=== PATIENT | male | born 1940 | race Caucasian/White ===

== ENCOUNTER 2017-05-16 11:38 | Observation (INO) | payer MEDICARE, BC ==
[2017-05-16] MEDS ORDERED: methylPREDNISolone SOD SUCCI 125 MG/2 ML VIAL IV STA (12:15)
[2017-05-16] MEDS ORDERED: IPRATROPIUM-ALBUTEROL 3 ML NEB INHALATION STA (12:15)
[2017-05-16] MEDS ORDERED: SODIUM CHLORIDE 0.9% 1,000 ML IV STA (12:15)
--- NOTE | 2017-05-16 12:17 | ED ---
General Adult HPI - General Chief complaint: Shortness of Breath Stated complaint: diff breathing Time Seen by Provider: 05/16/17 12:06 Source: patient, family, RN notes reviewed Mode of arrival: wheelchair Limitations: no limitations - History of Present Illness Initial comments: Patient is a pleasant 77-year-old male presenting to the emergency department with difficulty in breathing. Patient has similar symptoms related to chronic COPD. Patient states symptoms have worsened the past few days. Patient did just finish steroid treatments a few days ago. No fevers. Patient does have cough that is nonproductive. No chest pain. - Related Data Home Medications Medication Instructions Recorded Confirmed Aspirin [Adult Low Dose Aspirin EC] 81 mg PO DAILY 02/13/16 05/16/17 Atenolol [Tenormin] 25 mg PO DAILY 02/13/16 05/16/17 Atorvastatin [Lipitor] 40 mg PO HS 02/13/16 05/16/17 Ezetimibe [Zetia] 10 mg PO DAILY 02/13/16 05/16/17 FLUoxetine HCL [PROzac] 60 mg PO DAILY 02/13/16 05/16/17 Nitroglycerin Sl Tabs [Nitrostat] 0.4 mg SUBLINGUAL Q5M PRN 06/22/16 05/16/17 clonazePAM [KlonoPIN] 0.5 mg PO DAILY PRN 06/22/16 05/16/17 Amoxicillin 500 mg PO TID 05/16/17 05/16/17 Omeprazole [PriLOSEC] 20 mg PO AC-BID 05/16/17 05/16/17 Ticagrelor [Brilinta] 60 mg PO BID 05/16/17 05/16/17 Previous Rx's Medication Instructions Recorded Budesonide-Formot 160-4.5 Mcg 1 puff INHALATION RT-BID #1 inh 06/25/16 [Symbicort 160-4.5 Mcg Inhaler] Furosemide [Lasix] 20 mg PO DAILY #30 tab 06/25/16 Ipratropium-Albuterol Nebulize 3 ml INHALATION RT-QID ampul.neb 06/25/16 [Duoneb 0.5 mg-3 mg/3 ml Soln] predniSONE 10 mg PO DAILY #40 tab 08/15/16 Allergies Allergy/AdvReac Type Severity Reaction Status Date / Time No Known Allergies Allergy Verified 05/16/17 13:18 Review of Systems ROS Statement: Those systems with pertinent positive or pertinent negative responses have been documented in the HPI. ROS Other: All systems not noted in ROS Statement are negative. Constitutional: Denies: fever Eyes: Denies: eye pain ENT: Denies: ear pain Respiratory: Reports: cough, dyspnea Cardiovascular: Denies: chest pain Endocrine: Denies: fatigue Gastrointestinal: Denies: abdominal pain Genitourinary: Denies: dysuria Musculoskeletal: Denies: back pain Skin: Denies: rash Neurological: Denies: weakness Past Medical History Past Medical History: COPD, Hyperlipidemia, Hypertension Additional Past Medical History / Comment(s): COPD, obesity, coronary artery disease with previous bypass surgery, cataracts, hiatal hernia, obstructive sleep apnea for which the patient needs to be reevaluated for CPAP therapy. His latest sleep evaluation was done many years back. 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 Mother Family Medical History: CVA/TIA Additional Family Medical History / Comment(s): at age 99 3/4 from [place] General Exam Limitations: no limitations General appearance: alert, in no apparent distress Head exam: Present: atraumatic Eye exam: Present: normal appearance, PERRL ENT exam: Present: normal oropharynx Neck exam: Present: normal inspection Respiratory exam: Present: wheezes, decreased breath sounds Cardiovascular Exam: Present: regular rate, normal rhythm GI/Abdominal exam: Present: soft. Absent: tenderness Extremities exam: Present: normal inspection. Absent: pedal edema, calf tenderness Back exam: Present: normal inspection Neurological exam: Present: alert Psychiatric exam: Present: normal affect, normal mood Skin exam: Present: normal color Course Vital Signs 05/16/17 05/16/17 05/16/17 11:42 12:16 12:29 Temperature 98.2 F Pulse Rate 76 78 78 Respiratory 20 Rate Blood Pressure 131/65 O2 Sat by Pulse 97 Oximetry 05/16/17 13:23 Temperature Pulse Rate 66 Respiratory 18 Rate Blood Pressure 120/60 O2 Sat by Pulse 96 Oximetry EKG Findings - EKG Comments: EKG Findings:: Normal sinus rhythm 69. [place] 162. QRS 142. QT 442. QTC 473. Left axis. Right bundle branch block. No acute ST change. Medical Decision Making - Medical Decision Making Patient reexamined and only somewhat improved following an alleged treatment. Patient and family were updated on results and plan. Case was discussed in detail with practitioner Moose, who will admit for Dr. Alaniz, covering for Dr. Palacios. - Lab Data Result diagrams: 05/16/17 12:10 05/16/17 12:10 Lab Results 05/16/17 05/16/17 Range/Units 12:10 12:10 WBC 7.6 (3.8-10.6) k/uL RBC 4.26 L (4.30-5.90) m/uL Hgb 13.2 (13.0-17.5) gm/dL Hct 37.6 L (39.0-53.0) % MCV 88.2 (80.0-100.0) fL MCH 31.1 (25.0-35.0) pg MCHC 35.2 (31.0-37.0) g/dL RDW 13.6 (11.5-15.5) % Plt Count 175 (150-450) k/uL Neutrophils % 72 % Lymphocytes % 14 % Monocytes % 7 % Eosinophils % 4 % Basophils % 1 % Neutrophils # 5.5 (1.3-7.7) k/uL Lymphocytes # 1.1 (1.0-4.8) k/uL Monocytes # 0.5 (0-1.0) k/uL Eosinophils # 0.3 (0-0.7) k/uL Basophils # 0.0 (0-0.2) k/uL Sodium 134 L (137-145) mmol/L Potassium 4.8 (3.5-5.1) mmol/L Chloride 101 (98-107) mmol/L Carbon Dioxide 22 (22-30) mmol/L Anion Gap 11 mmol/L BUN 14 (9-20) mg/dL Creatinine 1.00 (0.66-1.25) mg/dL Est GFR (MDRD) Af Amer >60 (>60 ml/min/1.73 sqM) Est GFR (MDRD) Non-Af >60 (>60 ml/min/1.73 sqM) Glucose 136 H (74-99) mg/dL Calcium 9.1 (8.4-10.2) mg/dL Total Bilirubin 0.7 (0.2-1.3) mg/dL AST 25 (17-59) U/L ALT 36 (21-72) U/L Alkaline Phosphatase 87 (38-126) U/L Total Protein 6.3 (6.3-8.2) g/dL Albumin 3.7 (3.5-5.0) g/dL - Radiology Data Radiology results: image reviewed (Chest x-ray shows atelectasis, bronchitis versus reactive small airway disease.) Disposition Clinical Impression: Acute exacerbation of chronic obstructive pulmonary disease (COPD) Disposition: ADMITTED IP TO THIS HOSP Referrals: Doretha Rose MD [Primary Care Provider] - 1-2 days Decision Time: 14:46
[2017-05-16 12:33] LABS: Basophils % (A) 1 %; CH 30.4; CHCM 34.6; Eosinophils # (A) 0.3 k/uL (0-0.7); Eosinophils % (A) 4 %; HCT 37.6 % (39.0-53.0); HDW 2.89; HGB 13.2 gm/dL (13.0-17.5); Luc # (Auto) 0.14; Luc % (Auto) 2; Lymphocytes # (A) 1.1 k/uL (1.0-4.8); Lymphocytes % (A) 14 %; MCH 31.1 pg (25.0-35.0); MCHC 35.2 g/dL (31.0-37.0); MCV 88.2 fL (80.0-100.0); Mean Platelet Volume 9.2; Monocytes # (A) 0.5 k/uL (0-1.0); Monocytes % (A) 7 %; Neutrophils # (A) 5.5 k/uL (1.3-7.7); Neutrophils % (A) 72 %; RBC 4.26 m/uL (4.30-5.90); RDW 13.6 % (11.5-15.5); WBC 7.6 k/uL (3.8-10.6); WBC (Perox) 8.11
[2017-05-16 12:53] LABS: ALT 36 U/L (21-72); AST 25 U/L (17-59); Alkaline Phosphatase 87 U/L (38-126); Anion Gap 11 mmol/L; Blood Urea Nitrogen 14 mg/dL (9-20); Calcium 9.1 mg/dL (8.4-10.2); Carbon Dioxide 22 mmol/L (22-30); Chloride 101 mmol/L (98-107); Glucose 136 mg/dL (74-99); Non-African American GFR(MDRD) >60 (>60 ml/min/1.73 sqM); Potassium 4.8 mmol/L (3.5-5.1); Sodium 134 mmol/L (137-145); Total Bilirubin 0.7 mg/dL (0.2-1.3); Total Protein 6.3 g/dL (6.3-8.2)
--- NOTE | 2017-05-16 12:53 | XR ---
EXAMINATION TYPE: XR chest 2V DATE OF EXAM: 05/16/2017 COMPARISON: NONE HISTORY: Difficulty breathing with history of COPD TECHNIQUE: Frontal and lateral views of the chest are obtained. FINDINGS: There is no focal air space opacity, pleural effusion, or pneumothorax seen. Peripheral r ight lower lung atelectasis is present. Lower lobe peribronchial cuffing is seen, new from the prior exam. Median sternotomy wires and mediastinal clips are noted. The cardiac silhouette size is within normal limits. The osseous structures are intact. Mild degenerative changes of the thoracic spine a re seen. IMPRESSION: 1. Lower lobe peribronchial cuffing that could relate to bronchitis and/or reactive small airway dise ase. 2. Subsegmental right basilar peripheral platelike atelectasis.
[2017-05-16 13:24] VITALS: RESP 18
[2017-05-16] MEDS ORDERED: IPRATROPIUM-ALBUTEROL 3 ML NEB INHALATION PRN (14:46)
[2017-05-16] MEDS ORDERED: clonazePAM 0.5 MG TAB PO PRN (17:08)
[2017-05-16] MEDS ORDERED: NITROGLYCERIN SL TABS 0.4 MG TAB SUBLINGUAL PRN (17:08)
[2017-05-16] MEDS: INSULIN LISPRO (humaLOG) 300 UNIT/3 ML VIAL SQ SCH ×2 (17:42→22:37)
[2017-05-16] MEDS: methylPREDNISolone SOD SUCCI 125 MG/2 ML VIAL IV SCH ×2 (17:45→23:58)
[2017-05-16] MEDS ORDERED: LEVOFLOXACIN 500MG-D5W PMX 500 MG in DEXTROSE/WATER 1 100ML.BAG IVPB SCH (18:00)
[2017-05-16] MEDS: SYMBICORT 160-4.5 MCG INHALER INHALATION SCH (19:37)
[2017-05-16] MEDS: IPRATROPIUM-ALBUTEROL 3 ML NEB INHALATION SCH (19:38)
[2017-05-16 20:33] LABS: Glucose,Whole Blood 205 mg/dL (75-99)
[2017-05-16] MEDS ORDERED: ATORVASTATIN 40 MG TAB PO SCH (21:00)
[2017-05-16] MEDS ORDERED: NON-FORMULARY DRUG (Ticagrelor [Brilinta] 60 MG) PO SCH (21:00)
[2017-05-17] MEDS: methylPREDNISolone SOD SUCCI 125 MG/2 ML VIAL IV SCH ×2 (05:29→12:32)
[2017-05-17 05:46] LABS: Basophils % (A) 0 %; CH 31.4; Eosinophils # (A) 0.1 k/uL (0-0.7); Eosinophils % (A) 1 %; HCT 39.9 % (39.0-53.0); HDW 2.87; HGB 13.5 gm/dL (13.0-17.5); Luc # (Auto) 0.04; Luc % (Auto) 0; Lymphocytes # (A) 0.7 k/uL (1.0-4.8); Lymphocytes % (A) 6 %; MCH 30.4 pg (25.0-35.0); MCHC 33.8 g/dL (31.0-37.0); Mean Platelet Volume 9.3; Monocytes # (A) 0.1 k/uL (0-1.0); Monocytes % (A) 1 %; Neutrophils # (A) 10.7 k/uL (1.3-7.7); Neutrophils % (A) 92 %; RBC 4.43 m/uL (4.30-5.90); RDW 14.2 % (11.5-15.5); WBC 11.7 k/uL (3.8-10.6); WBC (Perox) 11.97
[2017-05-17 05:57] LABS: Anion Gap 12 mmol/L; Blood Urea Nitrogen 15 mg/dL (9-20); Calcium 9.6 mg/dL (8.4-10.2); Carbon Dioxide 21 mmol/L (22-30); Chloride 100 mmol/L (98-107); Glucose 157 mg/dL (74-99); Non-African American GFR(MDRD) >60 (>60 ml/min/1.73 sqM); Sodium 133 mmol/L (137-145)
[2017-05-17 06:43] LABS: Glucose,Whole Blood 141 mg/dL (75-99)
[2017-05-17 07:27] VITALS: BP 137/65; TEMP 97.8
[2017-05-17] MEDS ORDERED: PANTOPRAZOLE 40 MG TABLET PO SCH (07:30)
[2017-05-17] MEDS: IPRATROPIUM-ALBUTEROL 3 ML NEB INHALATION SCH ×3 (07:41→11:08)
[2017-05-17] MEDS: SYMBICORT 160-4.5 MCG INHALER INHALATION SCH (07:42)
[2017-05-17] MEDS: INSULIN LISPRO (humaLOG) 300 UNIT/3 ML VIAL SQ SCH ×2 (08:10→12:31)
[2017-05-17] MEDS ORDERED: FLUoxetine HCL 20 MG CAP PO SCH (09:00)
[2017-05-17] MEDS ORDERED: FUROSEMIDE 20 MG TAB PO SCH (09:00)
[2017-05-17] MEDS ORDERED: EZETIMIBE 10 MG TAB PO SCH (09:00)
[2017-05-17] MEDS ORDERED: ASPIRIN 81 MG PO SCH (09:00)
[2017-05-17] MEDS ORDERED: ATENOLOL 25 MG TAB PO SCH (09:00)
[2017-05-17 12:07] LABS: Glucose,Whole Blood 181 mg/dL (75-99)
[2017-05-17 12:21] VITALS: PULSE 70
[2017-05-17] MEDS ORDERED: LEVOFLOXACIN 500 MG TAB PO SCH (18:00)
--- NOTE | 2017-05-18 08:50 | HP ---
HISTORY AND PHYSICAL HISTORY AND PHYSICAL AND DISCHARGE SUMMARY: DATE OF ADMISSION: 05/16/17 CHIEF COMPLAINT: Difficulty breathing. HISTORY OF PRESENTING ILLNESS: This is a 77-year-old gentleman who sees Dr. Monroe out of [employer] for his lung disease. Comes into the hospital with difficulty in breathing and progressive worsening of his symptoms for the last few days. Patient apparently was prescribed a steroid taper and has just finished a steroid taper over 2 days ago. Patient was seen in the emergency room. A chest x-ray did not reveal any pneumonic processes. However, the patient was having significant amount of wheezing, hence was admitted to the hospital with steroid therapy and scheduled breathing treatments. The patient currently uses [facility] and breathing treatments 4 hours. The patient is not very active at home even at baseline. Denies any headache, blurred vision, nausea, vomiting, diarrhea. No chest pain. His main complaints are difficulty breathing. HOME MEDICATIONS: Include: 1. Aspirin. 2. Tenormin. 3. Lipitor. 4. Zetia. 5. Prozac. 6. Nitrostat. 7. Klonopin. 8. Brilinta. 9. Prilosec. 10.Symbicort. 11.Lasix. 12.Prednisone taper that he just finished. ALLERGIES: No known drug allergies. REVIEW OF SYSTEMS: 14-point review of system was done. None pertinent other that what was mentioned above. PAST MEDICAL HISTORY: Includes COPD, dyslipidemia, hypertension, CAD, status post bypass surgery. SURGERY: Surgical history was appendectomy, back surgery, CABG, tonsillectomy, adenoidectomy. SOCIAL HISTORY: Former smoker. No alcohol or illicit drug use reported. FAMILY HISTORY: Not pertinent to the current admission. PHYSICAL EXAMINATION: Vital signs include a temperature is 98.2, heart rate is around 70-78. Blood pressure 130/65, saturating 97% on room air. General appearance alert, oriented x3. No distress at the time of my evaluation. Neck is supple. Head is atraumatic. Pupils equal, round, reactive to light and accommodation. Lungs diminished breath sounds. However, air movement is appreciated. No wheezing noted today. No rhonchi appreciated. Heart S1, S2 heard. No murmurs appreciated. Regular rate. Abdomen is soft, nontender. No organomegaly. Lower extremities no edema noted. Neuro: No focal motor or sensory deficits. LABORATORY DATA: Includes hemoglobin 13.2, hematocrit 37.6, white count 7.6, platelets 175. Sodium 134, potassium 4.8, chloride 101, bicarb 22, BUN 14, creatinine 1. ASSESSMENT AND PLAN: 1. Acute exacerbation of chronic obstructive pulmonary disease due to tracheobronchitis. 2. Coronary artery disease. 3. Depression. 4. Gastroesophageal reflux disease. 5. Dyslipidemia. 6. Hypertension. 7. Obesity. PLAN: 1. The patient is clinically improved. We will discharge the patient on Levaquin. Patient has a few doses of amoxicillin to be completed, which is to complete the course. 2. The patient will be given a prescription for Symbicort as well. 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 This is discussed with the patient. The patient verbalizes to understand the recommendations. 3. Again, follow up is with his snack foods mixer operator and Dr. Palacios as well. 4. The only new medication is of Symbicort and Levaquin. 5. The patient was given a new prescription for a another steroid taper. MMODL / IJN: [id number] /
== END 2017-05-17 16:10 | disposition home or self-care (01) ==
LOC: EC 11:38 → 3OBS 14:46
PROVIDERS: ADMIT Hospitalist; ATTEND Hospitalist
DX: J44.1 Chronic obstructive pulmonary disease with (acute) exacerbation (principal); I25.10 Atherosclerotic heart disease of native coronary artery without angina pectoris; F32.9 Major depressive disorder, single episode, unspecified; K21.9 Gastro-esophageal reflux disease without esophagitis; E78.5 Hyperlipidemia, unspecified; I10 Essential (primary) hypertension; F41.9 Anxiety disorder, unspecified; E66.9 Obesity, unspecified; Z68.33 Body mass index [BMI] 33.0-33.9, adult; G47.33 Obstructive sleep apnea (adult) (pediatric); Z79.82 Long term (current) use of aspirin; Z79.899 Other long term (current) drug therapy; Z79.02 Long term (current) use of antithrombotics/antiplatelets; Z95.1 Presence of aortocoronary bypass graft; Z87.891 Personal history of nicotine dependence; Z82.49 Family history of ischemic heart disease and other diseases of the circulatory system
CPT/HCPCS: 99285; 96375 ×2; 96361 ×5; 96365; 96376 ×2; 36415; 94640 ×4; 94760; 93005; 80053; 80048; 85025 ×2; 71020; G0378 ×2; J2930 ×2; J1956

== ENCOUNTER 2018-05-10 11:25 | Inpatient (IN) | payer BC, MEDICARE ==
[2018-05-10] MEDS ORDERED: IPRATROPIUM-ALBUTEROL 3 ML NEB INHALATION STA (12:09)
[2018-05-10] MEDS ORDERED: methylPREDNISolone SOD SUCCI 125 MG/2 ML VIAL IV STA (12:09)
--- NOTE | 2018-05-10 12:12 | ED ---
General Adult HPI - General Chief complaint: Shortness of Breath Stated complaint: Dyspnea Time Seen by Provider: 05/10/18 11:54 Source: patient, RN notes reviewed Mode of arrival: wheelchair Limitations: no limitations - History of Present Illness Initial comments: Patient is a pleasant 78-year-old male presenting to the emergency Department with shortness of breath. Patient does have a history of similar symptoms previously associated with COPD. Onset of symptoms was yesterday. Patient does have cough with occasional yellow sputum. No fever. Patient denies having any chest discomfort. No leg pain or leg swelling. - Related Data Home Medications Medication Instructions Recorded Confirmed Aspirin [Adult Low Dose Aspirin EC] 81 mg PO DAILY 02/13/16 05/10/18 Atenolol [Tenormin] 25 mg PO DAILY 02/13/16 05/10/18 Atorvastatin [Lipitor] 40 mg PO HS 02/13/16 05/10/18 Ezetimibe [Zetia] 10 mg PO DAILY 02/13/16 05/10/18 FLUoxetine HCL [PROzac] 60 mg PO DAILY 02/13/16 05/10/18 Nitroglycerin Sl Tabs [Nitrostat] 0.4 mg SUBLINGUAL Q5M PRN 06/22/16 05/10/18 clonazePAM [KlonoPIN] 0.5 mg PO BID 06/22/16 05/10/18 Omeprazole [PriLOSEC] 20 mg PO AC-BID 05/16/17 05/10/18 Ticagrelor [Brilinta] 60 mg PO BID 05/16/17 05/10/18 Previous Rx's Medication Instructions Recorded Furosemide [Lasix] 20 mg PO DAILY #30 tab 06/25/16 Ipratropium-Albuterol Nebulize 3 ml INHALATION RT-QID ampul.neb 06/25/16 [Duoneb 0.5 mg-3 mg/3 ml Soln] Budesonide-Formot 160-4.5 Mcg 1 puff INHALATION RT-BID #1 inh 05/17/17 [Symbicort 160-4.5 Mcg Inhaler] Allergies Allergy/AdvReac Type Severity Reaction Status Date / Time No Known Allergies Allergy Verified 05/10/18 11:55 Review of Systems ROS Statement: Those systems with pertinent positive or pertinent negative responses have been documented in the HPI. ROS Other: All systems not noted in ROS Statement are negative. Constitutional: Denies: fever, chills Eyes: Reports: other (Left upper eyelid lesion) ENT: Denies: ear pain Respiratory: Reports: cough, dyspnea Cardiovascular: Denies: chest pain Endocrine: Denies: fatigue Gastrointestinal: Denies: abdominal pain Genitourinary: Denies: dysuria Musculoskeletal: Denies: back pain Skin: Denies: rash Neurological: Denies: weakness Past Medical History Past Medical History: Coronary Artery Disease (CAD), COPD, Hyperlipidemia, Hypertension Additional Past Medical History / Comment(s): COPD, obesity, coronary artery disease with previous bypass surgery, cataracts, hiatal hernia, obstructive sleep apnea for which the patient needs to be reevaluated for CPAP therapy. His latest sleep evaluation was done many years back. 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 Mother Family Medical History: CVA/TIA Additional Family Medical History / Comment(s): at age 99 3/4 [place] General Exam Limitations: no limitations General appearance: alert, in no apparent distress Head exam: Present: atraumatic Eye exam: Present: PERRL, other (Left upper eyelid lesion approximately 2-3 mm that has an ulcerative type appearance there is surrounding mild erythema.). Absent: conjunctival injection ENT exam: Present: normal oropharynx Neck exam: Present: normal inspection Respiratory exam: Present: wheezes, decreased breath sounds Cardiovascular Exam: Present: regular rate, normal rhythm GI/Abdominal exam: Present: soft. Absent: tenderness Extremities exam: Present: normal inspection. Absent: pedal edema, calf tenderness Neurological exam: Present: alert Psychiatric exam: Present: normal affect, normal mood Skin exam: Present: normal color Course Vital Signs 05/10/18 05/10/18 05/10/18 11:40 11:54 12:20 Temperature 98.7 F Pulse Rate 76 89 Respiratory 18 22 20 Rate Blood Pressure 119/70 137/61 O2 Sat by Pulse 96 96 Oximetry 05/10/18 05/10/18 05/10/18 12:24 12:35 13:22 Temperature Pulse Rate 69 68 71 Respiratory 20 Rate Blood Pressure 137/63 O2 Sat by Pulse 96 Oximetry EKG Findings - EKG Comments: EKG Findings:: Normal sinus rhythm 74. [place] 174. QRS 164. QRS T4 48. QTC 497. [place] indeterminate. Right bundle branch block. No acute ST change. Medical Decision Making - Medical Decision Making Patient reevaluated and still feels somewhat short of breath. Case was discussed in detail with Dr. sheth, who will admit for Dr. Palacios. - Lab Data Result diagrams: 05/10/18 11:51 05/10/18 11:51 Lab Results 05/10/18 05/10/18 05/10/18 Range/Units 11:51 11:51 11:51 WBC 8.9 (3.8-10.6) k/uL RBC 4.70 (4.30-5.90) m/uL Hgb 14.2 (13.0-17.5) gm/dL Hct 43.2 (39.0-53.0) % MCV 92.1 (80.0-100.0) fL MCH 30.3 (25.0-35.0) pg MCHC 32.9 (31.0-37.0) g/dL RDW 13.7 (11.5-15.5) % Plt Count 136 L (150-450) k/uL Neutrophils % 80 % Lymphocytes % 11 % Monocytes % 5 % Eosinophils % 2 % Basophils % 1 % Neutrophils # 7.1 (1.3-7.7) k/uL Lymphocytes # 1.0 (1.0-4.8) k/uL Monocytes # 0.4 (0-1.0) k/uL Eosinophils # 0.2 (0-0.7) k/uL Basophils # 0.1 (0-0.2) k/uL PT 9.8 (9.0-12.0) sec INR 1.0 (<1.2) APTT 23.4 (22.0-30.0) sec Sodium 137 (137-145) mmol/L Potassium 4.7 (3.5-5.1) mmol/L Chloride 105 (98-107) mmol/L Carbon Dioxide 23 (22-30) mmol/L Anion Gap 9 mmol/L BUN 10 (9-20) mg/dL Creatinine 0.85 (0.66-1.25) mg/dL Est GFR (CKD-EPI)AfAm >90 (>60 ml/min/1.73 sqM) Est GFR (CKD-EPI)NonAf 84 (>60 ml/min/1.73 sqM) Glucose 170 H (74-99) mg/dL Calcium 9.0 (8.4-10.2) mg/dL Total Bilirubin 0.6 (0.2-1.3) mg/dL AST 24 (17-59) U/L ALT 31 (21-72) U/L Alkaline Phosphatase 69 (38-126) U/L NT-Pro-B Natriuret Pep pg/mL Total Protein 6.4 (6.3-8.2) g/dL Albumin 3.8 (3.5-5.0) g/dL 05/10/18 Range/Units 13:00 WBC (3.8-10.6) k/uL RBC (4.30-5.90) m/uL Hgb (13.0-17.5) gm/dL Hct (39.0-53.0) % MCV (80.0-100.0) fL MCH (25.0-35.0) pg MCHC (31.0-37.0) g/dL RDW (11.5-15.5) % Plt Count (150-450) k/uL Neutrophils % % Lymphocytes % % Monocytes % % Eosinophils % % Basophils % % Neutrophils # (1.3-7.7) k/uL Lymphocytes # (1.0-4.8) k/uL Monocytes # (0-1.0) k/uL Eosinophils # (0-0.7) k/uL Basophils # (0-0.2) k/uL PT (9.0-12.0) sec INR (<1.2) APTT (22.0-30.0) sec Sodium (137-145) mmol/L Potassium (3.5-5.1) mmol/L Chloride (98-107) mmol/L Carbon Dioxide (22-30) mmol/L Anion Gap mmol/L BUN (9-20) mg/dL Creatinine (0.66-1.25) mg/dL Est GFR (CKD-EPI)AfAm (>60 ml/min/1.73 sqM) Est GFR (CKD-EPI)NonAf (>60 ml/min/1.73 sqM) Glucose (74-99) mg/dL Calcium (8.4-10.2) mg/dL Total Bilirubin (0.2-1.3) mg/dL AST (17-59) U/L ALT (21-72) U/L Alkaline Phosphatase (38-126) U/L NT-Pro-B Natriuret Pep 83 pg/mL Total Protein (6.3-8.2) g/dL Albumin (3.5-5.0) g/dL - Radiology Data Radiology results: image reviewed (Chest x-ray does show some interstitial changes) Disposition Clinical Impression: Acute exacerbation of chronic obstructive pulmonary disease (COPD) Disposition: ADMITTED IP TO THIS HOSP Is patient prescribed a controlled substance at d/c from ED?: No Referrals: Doretha Rose MD [Primary Care Provider] - 1-2 days Decision Time: 14:59
[2018-05-10 12:25] LABS: Basophils # (A) 0.1 k/uL (0-0.2); Basophils % (A) 1 %; Eosinophils # (A) 0.2 k/uL (0-0.7); Eosinophils % (A) 2 %; HCT 43.2 % (39.0-53.0); HGB 14.2 gm/dL (13.0-17.5); Lymphocytes % (A) 11 %; MCH 30.3 pg (25.0-35.0); MCHC 32.9 g/dL (31.0-37.0); MCV 92.1 fL (80.0-100.0); Monocytes # (A) 0.4 k/uL (0-1.0); Monocytes % (A) 5 %; Neutrophils # (A) 7.1 k/uL (1.3-7.7); Neutrophils % (A) 80 %; Platelet Count 136 k/uL (150-450); RDW 13.7 % (11.5-15.5); WBC 8.9 k/uL (3.8-10.6)
[2018-05-10 12:33] LABS: ALT 31 U/L (21-72); AST 24 U/L (17-59); Albumin 3.8 g/dL (3.5-5.0); Alkaline Phosphatase 69 U/L (38-126); Anion Gap 9 mmol/L; Blood Urea Nitrogen 10 mg/dL (9-20); Carbon Dioxide 23 mmol/L (22-30); Chloride 105 mmol/L (98-107); Glucose 170 mg/dL (74-99); Potassium 4.7 mmol/L (3.5-5.1); Sodium 137 mmol/L (137-145); Total Bilirubin 0.6 mg/dL (0.2-1.3); Total Protein 6.4 g/dL (6.3-8.2)
[2018-05-10 12:34] LABS: Partial Thromboplastin Time 23.4 sec (22.0-30.0); Prothrombin Time 9.8 sec (9.0-12.0)
[2018-05-10] MEDS: ERYTHROMYCIN 5 MG/GM OPHTH OINT 3.5 GM TUBE LEFT EYE SCH ×3 (12:48→23:08)
--- NOTE | 2018-05-10 13:09 | XR ---
EXAMINATION TYPE: XR chest 2V DATE OF EXAM: 05/10/2018 HISTORY: difficulty breathing. REFERENCE: Previous study dated 06/30/2017. FINDINGS: There has been a midline sternotomy. The heart is mildly enlarged. There is mild interstitial change. There is mild vascular congestion. T here is blunting of both CP angles. I could not exclude small, bilateral effusions. IMPRESSION: PLEASE CORRELATE FOR CONGESTIVE HEART FAILURE.
[2018-05-10] MEDS ORDERED: IPRATROPIUM-ALBUTEROL 3 ML NEB INHALATION PRN (15:00)
[2018-05-10] MEDS: IPRATROPIUM-ALBUTEROL 3 ML NEB INHALATION SCH ×2 (15:45→19:45)
[2018-05-10 16:48] VITALS: BMI 34.9
[2018-05-10] MEDS ORDERED: NITROGLYCERIN SL TABS 0.4 MG TAB SUBLINGUAL PRN (16:56)
[2018-05-10 17:13] LABS: Glucose,Whole Blood 206 mg/dL (75-99)
[2018-05-10] MEDS: INSULIN ASPART 100 UNIT/ML 1 ML 10 ML VIAL SQ SCH ×2 (17:43→20:26)
[2018-05-10] MEDS: PANTOPRAZOLE 40 MG TABLET PO SCH (17:44)
[2018-05-10] MEDS: methylPREDNISolone SOD SUCCI 125 MG/2 ML VIAL IV SCH ×2 (17:44→23:08)
[2018-05-10] MEDS: clonazePAM 0.5 MG TAB PO SCH ×2 (20:26→20:31)
[2018-05-10] MEDS: MELATONIN 3 MG TABLET PO SCH (20:26)
[2018-05-10] MEDS: ATORVASTATIN 40 MG TAB PO SCH (20:26)
[2018-05-10 20:33] LABS: Glucose,Whole Blood 219 mg/dL (75-99)
[2018-05-10] MEDS: TICAGRELOR 60 MG PO SCH (21:34)
[2018-05-11] MEDS: ERYTHROMYCIN 5 MG/GM OPHTH OINT 3.5 GM TUBE LEFT EYE SCH ×4 (05:30→23:39)
[2018-05-11] MEDS: methylPREDNISolone SOD SUCCI 125 MG/2 ML VIAL IV SCH ×4 (05:30→23:39)
[2018-05-11] MEDS ORDERED: ACETAMINOPHEN TAB 325 MG TAB PO STA (06:49)
[2018-05-11 07:17] LABS: Glucose,Whole Blood 178 mg/dL (75-99)
[2018-05-11] MEDS: IPRATROPIUM-ALBUTEROL 3 ML NEB INHALATION SCH ×4 (08:00→20:21)
[2018-05-11] MEDS: INSULIN ASPART 100 UNIT/ML 1 ML 10 ML VIAL SQ SCH ×4 (08:14→21:08)
[2018-05-11] MEDS: clonazePAM 0.5 MG TAB PO SCH ×2 (08:14→21:08)
[2018-05-11] MEDS: TICAGRELOR 60 MG PO SCH ×2 (08:15→21:07)
[2018-05-11] MEDS: ATENOLOL 25 MG TAB PO SCH (08:16)
[2018-05-11] MEDS: ASPIRIN 81 MG PO SCH (08:16)
[2018-05-11] MEDS: PANTOPRAZOLE 40 MG TABLET PO SCH ×2 (08:16→17:35)
[2018-05-11] MEDS: EZETIMIBE 10 MG TAB PO SCH (08:16)
[2018-05-11] MEDS: FUROSEMIDE 20 MG TAB PO SCH (08:16)
[2018-05-11] MEDS: FLUoxetine HCL 20 MG CAP PO SCH (08:16)
--- NOTE | 2018-05-11 11:15 | P.HPIM ---
History of Present Illness H&P Date: 05/11/18 Chief Complaint: Shortness of breath is a 77-year-old male with a past medical history of coronary artery disease, COPD, hyperlipidemia, hypertension coming in with a chief complaint of difficulty in breathing for the past couple of days. Patient complains of shortness of breath along with increased cough and a slight sputum production for the past couple of days. Patient has history of extensive smoking quit cigarettes 3 years back. He is maintained on Symbicort Spiriva and albuterol nebulized treatments at home. Patient denies having any fevers chills or rigors. No sick contacts. Patient denies having any chest pain or palpitations. No orthopnea or PND. In the ED patient was found to have decreased breath sounds along with bilateral wheezing and so admitted for COPD exacerbation. Chest x-ray done in the ED showing the mild interstitial change and mild vascular congestion. Review of Systems REVIEW OF SYSTEMS: CONSTITUTIONAL: No fever, no malaise, no fatigue. HEENT: No recent visual problems or hearing problems. Denied any sore throat. CARDIOVASCULAR: No chest pain, orthopnea, PND, no palpitations, no syncope. PULMONARY: As mentioned in HPI GASTROINTESTINAL: No diarrhea, no nausea, no vomiting, no abdominal pain. Normoactive bowel sounds. NEUROLOGICAL: No headaches, no weakness, no numbness. HEMATOLOGICAL: Denies any bleeding or petechiae. GENITOURINARY: Denies any burning micturition, frequency, or urgency. MUSCULOSKELETAL/RHEUMATOLOGICAL: Denies any joint pain, swelling, or any muscle pain. ENDOCRINE: Denies any polyuria or polydipsia. The rest of the 14-point review of systems is negative. Past Medical History Past Medical History: Coronary Artery Disease (CAD), Heart Failure, COPD, Hyperlipidemia, Hypertension Additional Past Medical History / Comment(s): COPD, obesity, coronary artery disease with previous bypass surgery, cataracts, hiatal hernia, obstructive sleep apnea for which the patient needs to be reevaluated for CPAP therapy. His latest sleep evaluation was done many years back. 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 LIVES WITH HIS OF 55 YEARS IN A SINGLE LEVEL HOME THAT HAS 4 [address]PS. 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 NO OUT SIDE SERVICES RECIEVED. HAS A NEBULIZER. NO SERVICE IN PAST. RETIRED FROM [employer]. THEY HAVE 1 PET DOG. Smoking Status: Former smoker Past Alcohol Use History: None Reported Additional Past Alcohol Use History / Comment(s): STARTED SMOKING IN 1952, QUIT 1984 Past Drug Use History: None Reported Additional Drug Use History / Comment(s): QUIT MANY YEARS AGO. - Past Family History Father Family Medical History: Hyperlipidemia, Myocardial Infarction ([place]) Additional Family Medical History / Comment(s): father and brothers(mi's in their 40's and 50's). Mother Family Medical History: CVA/TIA Additional Family Medical History / Comment(s): at age 99 3/4 from a stoke Medications and Allergies Home Medications Medication Instructions Recorded Confirmed Type Aspirin [Adult Low Dose Aspirin EC] 81 mg PO DAILY 02/13/16 05/10/18 History Atenolol [Tenormin] 25 mg PO DAILY 02/13/16 05/10/18 History Atorvastatin [Lipitor] 40 mg PO HS 02/13/16 05/10/18 History Ezetimibe [Zetia] 10 mg PO DAILY 02/13/16 05/10/18 History FLUoxetine HCL [PROzac] 60 mg PO DAILY 02/13/16 05/10/18 History Nitroglycerin Sl Tabs [Nitrostat] 0.4 mg SUBLINGUAL Q5M PRN 06/22/16 05/10/18 History clonazePAM [KlonoPIN] 0.5 mg PO BID 06/22/16 05/10/18 History Furosemide [Lasix] 20 mg PO DAILY #30 tab 06/25/16 05/10/18 Rx Ipratropium-Albuterol Nebulize 3 ml INHALATION RT-QID ampul.neb 06/25/16 Rx [Duoneb 0.5 mg-3 mg/3 ml Soln] Omeprazole [PriLOSEC] 20 mg PO AC-BID 05/16/17 05/10/18 History Ticagrelor [Brilinta] 60 mg PO BID 05/16/17 05/10/18 History Budesonide-Formot 160-4.5 Mcg 1 puff INHALATION RT-BID #1 inh 05/17/17 05/10/18 Rx [Symbicort 160-4.5 Mcg Inhaler] Allergies Allergy/AdvReac Type Severity Reaction Status Date / Time No Known Allergies Allergy Verified 05/10/18 11:55 Physical Exam Vitals: Vital Signs Temp Pulse Pulse Resp BP BP Pulse Ox 05/11/18 08:11 74 05/11/18 08:00 72 05/11/18 05:00 97.6 F 80 17 154/68 93 L 05/10/18 22:30 98.3 F 85 17 130/59 96 05/10/18 19:52 76 05/10/18 19:45 76 93 L 05/10/18 16:35 97.3 F L 88 20 129/59 93 L 05/10/18 16:00 81 18 166/76 95 05/10/18 15:54 69 05/10/18 15:46 68 05/10/18 13:22 71 20 137/63 96 05/10/18 12:35 68 05/10/18 12:24 69 05/10/18 12:20 89 20 137/61 96 05/10/18 11:54 22 05/10/18 11:40 98.7 F 76 18 119/70 96 Intake and Output 05/10/18 05/11/18 05/11/18 22:59 06:59 14:59 Intake Total 240 240 Balance 240 240 Intake: Oral 240 240 Other: Voiding Method Toilet Toilet Toilet Weight 104.326 kg PHYSICAL EXAMINATION: GENERAL: The patient is alert and oriented x3, not in any acute distress. Well developed, well nourished. HEENT: Pupils are round and equally reacting to light. EOMI. No scleral icterus. No conjunctival pallor. Normocephalic, atraumatic. No pharyngeal erythema. No thyromegaly. CARDIOVASCULAR: S1 and S2 present. No murmurs, rubs, or gallops. PULMONARY: Decreased breath entry into bilateral lung chaudhry and very minimal expiratory wheezing was appreciated. No crackles were appreciated ABDOMEN: Soft, nontender, nondistended, normoactive bowel sounds. No palpable organomegaly. MUSCULOSKELETAL: No joint swelling or deformity. EXTREMITIES: No cyanosis, clubbing, or pedal edema. NEUROLOGICAL: Gross neurological examination did not reveal any focal deficits. SKIN: No rashes. Results CBC & Chem 7: 05/10/18 11:51 05/10/18 11:51 Labs: Abnormal Lab Results - Last 24 Hours (Table) 05/10/18 05/10/18 05/10/18 Range/Units 11:51 11:51 17:11 Plt Count 136 L (150-450) k/uL Glucose 170 H (74-99) mg/dL POC Glucose (mg/dL) 206 H (75-99) mg/dL 05/10/18 05/11/18 Range/Units 20:18 07:15 Plt Count (150-450) k/uL Glucose (74-99) mg/dL POC Glucose (mg/dL) 219 H 178 H (75-99) mg/dL Thrombosis Risk Factor Assmnt - Choose All That Apply Any of the Below Risk Factors Present?: Yes Each Factor Represents 1 point: Abnormal pulmonary function (COPD), Heart failure (<1month), Medical pt on bed rest Each Risk Factor Represents 3 Points: Age 75 years or older Thrombosis Risk Factor Assessment Total Risk Factor Score: 6 Thrombosis Risk Factor Assessment Level: High Risk Assessment and Plan Assessment: ASSESSMENT #1 Acute exacerbation of chronic obstructive pulmonary disease #2 Obstructive sleep apnea, currently not utilizing CPAP in the outpatient setting. #3 Remote history of chronic tobacco dependence. #4 Obesity. #5 Coronary artery disease with previous coronary artery bypass grafting, previous stent placement. #6 Hypertension. #7 Hyperlipidemia. #8 Anxiety/depression. PLAN: Patient has been started on IV steroids and breathing treatments. We'll add Zithromax. Continue with the rest of his home medication regimen. Further recommendations depending on the progress of the patient.
[2018-05-11 11:58] LABS: Glucose,Whole Blood 138 mg/dL (75-99)
[2018-05-11] MEDS: AZITHROMYCIN 500 MG TAB PO SCH (12:46)
[2018-05-11 17:09] LABS: Glucose,Whole Blood 151 mg/dL (75-99)
[2018-05-11 20:32] LABS: Glucose,Whole Blood 198 mg/dL (75-99)
[2018-05-11] MEDS: ATORVASTATIN 40 MG TAB PO SCH (21:08)
[2018-05-11] MEDS: MELATONIN 3 MG TABLET PO SCH (21:08)
[2018-05-12] MEDS: ERYTHROMYCIN 5 MG/GM OPHTH OINT 3.5 GM TUBE LEFT EYE SCH ×4 (05:49→23:16)
[2018-05-12] MEDS: methylPREDNISolone SOD SUCCI 125 MG/2 ML VIAL IV SCH (05:49)
[2018-05-12 07:02] LABS: Glucose,Whole Blood 178 mg/dL (75-99)
[2018-05-12 07:07] LABS: Basophils % (A) 0 %; Eosinophils # (A) 0.1 k/uL (0-0.7); Eosinophils % (A) 1 %; HCT 42.4 % (39.0-53.0); HGB 13.8 gm/dL (13.0-17.5); Lymphocytes # (A) 0.7 k/uL (1.0-4.8); Lymphocytes % (A) 4 %; MCH 30.4 pg (25.0-35.0); MCHC 32.4 g/dL (31.0-37.0); MCV 93.7 fL (80.0-100.0); Mean Platelet Volume 9.8; Monocytes # (A) 0.4 k/uL (0-1.0); Monocytes % (A) 2 %; Neutrophils # (A) 18.1 k/uL (1.3-7.7); Neutrophils % (A) 93 %; Platelet Count 126 k/uL (150-450); RBC 4.53 m/uL (4.30-5.90); RDW 13.6 % (11.5-15.5); WBC 19.4 k/uL (3.8-10.6)
[2018-05-12 07:23] LABS: Anion Gap 9 mmol/L; Blood Urea Nitrogen 23 mg/dL (9-20); Calcium 9.2 mg/dL (8.4-10.2); Carbon Dioxide 24 mmol/L (22-30); Chloride 103 mmol/L (98-107); Glucose 182 mg/dL (74-99); Potassium 4.9 mmol/L (3.5-5.1); Sodium 136 mmol/L (137-145)
[2018-05-12] MEDS: IPRATROPIUM-ALBUTEROL 3 ML NEB INHALATION SCH ×4 (07:23→20:11)
[2018-05-12] MEDS: FLUoxetine HCL 20 MG CAP PO SCH (07:37)
[2018-05-12] MEDS: FUROSEMIDE 20 MG TAB PO SCH (07:37)
[2018-05-12] MEDS: PANTOPRAZOLE 40 MG TABLET PO SCH ×2 (07:38→17:58)
[2018-05-12] MEDS: clonazePAM 0.5 MG TAB PO SCH ×2 (07:38→21:05)
[2018-05-12] MEDS: INSULIN ASPART 100 UNIT/ML 1 ML 10 ML VIAL SQ SCH ×4 (07:38→21:05)
[2018-05-12] MEDS: EZETIMIBE 10 MG TAB PO SCH (07:38)
[2018-05-12] MEDS: ATENOLOL 25 MG TAB PO SCH (07:38)
[2018-05-12] MEDS: AZITHROMYCIN 500 MG TAB PO SCH (07:38)
[2018-05-12] MEDS: ASPIRIN 81 MG PO SCH (07:38)
[2018-05-12] MEDS: TICAGRELOR 60 MG PO SCH ×2 (07:43→21:06)
[2018-05-12 11:17] LABS: Glucose,Whole Blood 192 mg/dL (75-99)
[2018-05-12 11:27] LABS: Hemoglobin A1C 6.5 % (4.0-6.0)
[2018-05-12] MEDS: predniSONE 50 MG TAB PO SCH (12:50)
--- NOTE | 2018-05-12 14:20 | P.PN ---
Subjective Progress Note Date: 05/12/18 Principal diagnosis: Acute exacerbation of COPD is a 77-year-old male with a past medical history of coronary artery disease, COPD, hyperlipidemia, hypertension coming in with a chief complaint of difficulty in breathing for the past couple of days. Patient complains of shortness of breath along with increased cough and a slight sputum production for the past couple of days. Patient has history of extensive smoking quit cigarettes 3 years back. He is maintained on Symbicort Spiriva and albuterol nebulized treatments at home. Patient denies having any fevers chills or rigors. No sick contacts. Patient denies having any chest pain or palpitations. No orthopnea or PND. In the ED patient was found to have decreased breath sounds along with bilateral wheezing and so admitted for COPD exacerbation. Chest x-ray done in the ED showing the mild interstitial change and mild vascular congestion. On 05/12/2018- no acute events overnight.patient still complaining of mild difficulty in breathing. No chest pain or palpitations. No abdominal pain nausea vomiting or diarrhea. No dysuria or hematuria. Objective - Vital Signs Vital signs: Vital Signs Temp 98.1 F 05/12/18 05:45 Pulse 76 05/12/18 11:00 Resp 16 05/12/18 05:45 BP 139/66 05/12/18 05:45 Pulse Ox 97 05/12/18 05:45 Intake & Output 05/11/18 05/12/18 05/12/18 18:59 06:59 18:59 Other: Voiding Method Toilet Toilet Toilet # Voids 2 1 - Exam GENERAL: The patient is alert and oriented x3, not in any acute distress. Well developed, well nourished. HEENT: Pupils are round and equally reacting to light. EOMI. No scleral icterus. No conjunctival pallor. Normocephalic, atraumatic. No pharyngeal erythema. No thyromegaly. CARDIOVASCULAR: S1 and S2 present. No murmurs, rubs, or gallops. PULMONARY: Decreased breath entry into bilateral lung chaudhry and very minimal expiratory wheezing was appreciated. No crackles were appreciated ABDOMEN: Soft, nontender, nondistended, normoactive bowel sounds. No palpable organomegaly. MUSCULOSKELETAL: No joint swelling or deformity. EXTREMITIES: No cyanosis, clubbing, or pedal edema. NEUROLOGICAL: Gross neurological examination did not reveal any focal deficits. SKIN: No rashes - Labs CBC & Chem 7: 05/12/18 06:44 05/12/18 06:44 Labs: Abnormal Lab Results - Last 24 Hours (Table) 05/11/18 05/11/18 05/12/18 Range/Units 17:08 20:31 06:44 WBC 19.4 H (3.8-10.6) k/uL Plt Count 126 L (150-450) k/uL Neutrophils # 18.1 H (1.3-7.7) k/uL Lymphocytes # 0.7 L (1.0-4.8) k/uL Sodium (137-145) mmol/L BUN (9-20) mg/dL Glucose (74-99) mg/dL POC Glucose (mg/dL) 151 H 198 H (75-99) mg/dL 05/12/18 05/12/18 05/12/18 Range/Units 06:44 07:00 11:16 WBC (3.8-10.6) k/uL Plt Count (150-450) k/uL Neutrophils # (1.3-7.7) k/uL Lymphocytes # (1.0-4.8) k/uL Sodium 136 L (137-145) mmol/L BUN 23 H (9-20) mg/dL Glucose 182 H (74-99) mg/dL POC Glucose (mg/dL) 178 H 192 H (75-99) mg/dL Assessment and Plan Assessment: ASSESSMENT #1 Acute exacerbation of chronic obstructive pulmonary disease #2 Obstructive sleep apnea, currently not utilizing CPAP in the outpatient setting. #3 Remote history of chronic tobacco dependence. #4 Obesity. #5 Coronary artery disease with previous coronary artery bypass grafting, previous stent placement. #6 Hypertension. #7 Hyperlipidemia. #8 Anxiety/depression. PLAN: Continue with the Zithromax. Patient received IV steroids on the lower and on physical exam his wheezing has improved so his changed to prednisone today. Continue with the rest of his home medication regimen. Further recommendations depending on the progress of the patient.
[2018-05-12 16:31] LABS: Glucose,Whole Blood 206 mg/dL (75-99)
[2018-05-12 21:02] LABS: Glucose,Whole Blood 200 mg/dL (75-99)
[2018-05-12] MEDS: MELATONIN 3 MG TABLET PO SCH (21:05)
[2018-05-12] MEDS: ATORVASTATIN 40 MG TAB PO SCH (21:05)
[2018-05-13 00:08] VITALS: RESP 16
[2018-05-13 05:49] VITALS: BP 137/78; TEMP 97.5
[2018-05-13] MEDS: ERYTHROMYCIN 5 MG/GM OPHTH OINT 3.5 GM TUBE LEFT EYE SCH ×2 (06:17→12:41)
[2018-05-13 07:03] LABS: Glucose,Whole Blood 155 mg/dL (75-99)
[2018-05-13] MEDS: TICAGRELOR 60 MG PO SCH (07:38)
[2018-05-13] MEDS: ATENOLOL 25 MG TAB PO SCH (07:39)
[2018-05-13] MEDS: predniSONE 50 MG TAB PO SCH (07:39)
[2018-05-13] MEDS: clonazePAM 0.5 MG TAB PO SCH (07:39)
[2018-05-13] MEDS: FUROSEMIDE 20 MG TAB PO SCH (07:39)
[2018-05-13] MEDS: AZITHROMYCIN 500 MG TAB PO SCH (07:39)
[2018-05-13] MEDS: ASPIRIN 81 MG PO SCH (07:39)
[2018-05-13] MEDS: FLUoxetine HCL 20 MG CAP PO SCH (07:39)
[2018-05-13] MEDS: EZETIMIBE 10 MG TAB PO SCH (07:39)
[2018-05-13] MEDS: INSULIN ASPART 100 UNIT/ML 1 ML 10 ML VIAL SQ SCH ×2 (07:40→12:43)
[2018-05-13] MEDS: PANTOPRAZOLE 40 MG TABLET PO SCH (07:40)
[2018-05-13 07:59] LABS: Basophils % (A) 0 %; Eosinophils % (A) 0 %; HCT 41.3 % (39.0-53.0); HGB 13.7 gm/dL (13.0-17.5); Lymphocytes % (A) 7 %; MCH 30.5 pg (25.0-35.0); MCHC 33.1 g/dL (31.0-37.0); MCV 92.1 fL (80.0-100.0); Mean Platelet Volume 9.9; Monocytes # (A) 0.9 k/uL (0-1.0); Monocytes % (A) 6 %; Neutrophils % (A) 86 %; Platelet Count 127 k/uL (150-450); RBC 4.49 m/uL (4.30-5.90); RDW 13.6 % (11.5-15.5); WBC 15.2 k/uL (3.8-10.6)
[2018-05-13] MEDS: IPRATROPIUM-ALBUTEROL 3 ML NEB INHALATION SCH ×3 (08:00→16:21)
[2018-05-13 08:09] LABS: Anion Gap 7 mmol/L; Blood Urea Nitrogen 26 mg/dL (9-20); Calcium 8.8 mg/dL (8.4-10.2); Carbon Dioxide 27 mmol/L (22-30); Chloride 103 mmol/L (98-107); Glucose 125 mg/dL (74-99); Potassium 4.3 mmol/L (3.5-5.1); Sodium 137 mmol/L (137-145)
[2018-05-13 12:18] VITALS: PULSE 72
[2018-05-13 12:42] LABS: Glucose,Whole Blood 120 mg/dL (75-99)
== END 2018-05-13 16:40 | disposition home or self-care (01) | DRG 192 ==
LOC: EC 11:25 → 5MS5E 15:00 → 5ONC 05-11 13:20 → 5MS5E 05-12 21:48
PROVIDERS: ADMIT Internal Medicine; ATTEND Internal Medicine
DX: J44.1 Chronic obstructive pulmonary disease with (acute) exacerbation (principal); E66.9 Obesity, unspecified; E78.5 Hyperlipidemia, unspecified; F32.9 Major depressive disorder, single episode, unspecified; F41.9 Anxiety disorder, unspecified; G47.33 Obstructive sleep apnea (adult) (pediatric); I11.0 Hypertensive heart disease with heart failure; I25.10 Atherosclerotic heart disease of native coronary artery without angina pectoris; I50.9 Heart failure, unspecified; Z79.51 Long term (current) use of inhaled steroids; Z79.82 Long term (current) use of aspirin; Z82.49 Family history of ischemic heart disease and other diseases of the circulatory system; Z87.891 Personal history of nicotine dependence; Z95.1 Presence of aortocoronary bypass graft; Z95.5 Presence of coronary angioplasty implant and graft; Z68.33 Body mass index [BMI] 33.0-33.9, adult; K44.9 Diaphragmatic hernia without obstruction or gangrene; Z98.49 Cataract extraction status, unspecified eye; Z82.3 Family history of stroke
CPT/HCPCS: 36415; 71046; 80048; 80053; 83036; 83880; 85025; 85610; 85730; 93005; 94640; 96374; 99285

== ENCOUNTER 2018-05-27 09:41 | Emergency (ER) | payer MEDICARE ==
[2018-05-27] MEDS ORDERED: ONDANSETRON 4 MG/2 ML VIAL IVP STA (10:04)
[2018-05-27] MEDS ORDERED: MORPHINE SULFATE 2 MG/ML SYRINGE IVP STA (10:04)
[2018-05-27] MEDS ORDERED: SODIUM CHLORIDE 0.9% 500 ML IV STA (10:04)
--- NOTE | 2018-05-27 10:09 | ED ---
General Adult HPI - General Chief complaint: Shortness of Breath Stated complaint: Sob Source: patient, family Mode of arrival: ambulatory Limitations: no limitations - History of Present Illness Initial comments: Dictation was produced using [employer] dictation software. please excuse any grammatical, word or spelling errors. Chief Complaint: 78-year-old male with past medical history of coronary artery disease, COPD, congestive heart failure, hypertension presents with dyspnea and abdominal pain. History of Present Illness: His symptoms have been ongoing for the last couple days. Patient states he's been feeling unwell. He does report postprandial abdominal symptoms. States that he still continues to have persistent abdominal pain. Patient reports that his pain is located to the. Umbilical region. Patient has not been eating secondary to the abdominal pain. Patient also having some shortness of breath. His company by reports that she sounded a little gunky and was showing signs of difficulty in breathing. Patient does have established diagnosis of COPD and emphysema. The ROS documented in this emergency department record has been reviewed and confirmed by me. Those systems with pertinent positive or negative responses have been documented in the HPI. All other systems are other negative and/or noncontributory. - Related Data Home Medications Medication Instructions Recorded Confirmed Aspirin [Adult Low Dose Aspirin EC] 81 mg PO DAILY 02/13/16 05/27/18 Atenolol [Tenormin] 25 mg PO DAILY 02/13/16 05/27/18 Atorvastatin [Lipitor] 40 mg PO HS 02/13/16 05/27/18 Ezetimibe [Zetia] 10 mg PO DAILY 02/13/16 05/27/18 FLUoxetine HCL [PROzac] 60 mg PO DAILY 02/13/16 05/27/18 Nitroglycerin Sl Tabs [Nitrostat] 0.4 mg SUBLINGUAL Q5M PRN 06/22/16 05/27/18 clonazePAM [KlonoPIN] 0.5 mg PO BID 06/22/16 05/27/18 Omeprazole [PriLOSEC] 20 mg PO AC-BID 05/16/17 05/27/18 Ticagrelor [Brilinta] 60 mg PO BID 05/16/17 05/27/18 predniSONE 10 mg PO DAILY 05/27/18 05/27/18 Previous Rx's Medication Instructions Recorded Furosemide [Lasix] 20 mg PO DAILY #30 tab 06/25/16 Ipratropium-Albuterol Nebulize 3 ml INHALATION RT-QID ampul.neb 06/25/16 [Duoneb 0.5 mg-3 mg/3 ml Soln] Budesonide-Formot 160-4.5 Mcg 1 puff INHALATION RT-BID #1 inh 05/17/17 [Symbicort 160-4.5 Mcg Inhaler] Allergies Allergy/AdvReac Type Severity Reaction Status Date / Time No Known Allergies Allergy Verified 05/27/18 10:59 Review of Systems ROS Statement: Those systems with pertinent positive or pertinent negative responses have been documented in the HPI. ROS Other: All systems not noted in ROS Statement are negative. Past Medical History Past Medical History: Coronary Artery Disease (CAD), Heart Failure, COPD, Hyperlipidemia, Hypertension Additional Past Medical History / Comment(s): COPD, obesity, coronary artery disease with previous bypass surgery, cataracts, hiatal hernia, obstructive sleep apnea for which the patient needs to be reevaluated for CPAP therapy. His latest sleep evaluation was done many years back. 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 Mother Family Medical History: CVA/TIA Additional Family Medical History / Comment(s): at age 99 3/4 from a stoke General Exam - General Exam Comments Initial Comments: PHYSICAL EXAM: General Impression: Alert and oriented x3, not in acute distress HEENT: Normocephalic atraumatic, extra-ocular movements intact, pupils equal and reactive to light bilaterally, mucous membranes moist. Cardiovascular: Heart regular rate and rhythm, S1&S2 audible, no murmurs, rubs or gallops Chest: Lungs clear to auscultation bilaterally, no rhonchi, no wheeze, no rales Abdomen: Diffuse abdominal tenderness, however abdomen is soft Musculoskeletal: Pulses present and equal in all extremities, no peripheral edema Motor: Power 5/5 bilaterally, no focal deficits noted Neurological: CN II-XII grossly intact, no focal motor or sensory deficits noted Skin: Intact with no visualized rashes Psych: Normal affect and mood Limitations: no limitations Course Vital Signs 05/27/18 05/27/18 09:44 12:18 Temperature 100.1 F H Pulse Rate 95 92 Respiratory 16 17 Rate Blood Pressure 155/83 160/70 O2 Sat by Pulse 95 98 Oximetry Medical Decision Making - Medical Decision Making ED course: 78-year-old male with multiple comorbidities presents with shortness of breath and abdominal pain. Vital signs upon arrival shows temperature 100.1 , worse vital signs within normal limits.Laboratory evaluation obtained. No leukocytosis. Coag panel is unremarkable. Metabolic panel shows no acute processes. Urinalysis shows findings consistent with urinary tract infection. Given clinical presentation there was concern for mesenteric ischemia. CT angios showed severely calcified plaque with significant stenosis in small vessels. 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 There is however no convincing evidence of solid organ or bowel ischemia. Discussed patient case with Dr. Chavez of vascular surgery who recommended transfer to outside facility. Discussed these findings with patient. Family and patient requested transfer to [facility]. Patient started on antibiotics. Discussed patient case with Dr. Flores at [facility] who is willing to accept admission. - Lab Data Result diagrams: 05/27/18 10:21 05/27/18 10:21 Lab Results 05/27/18 05/27/18 05/27/18 Range/Units 10:13 10:21 10:21 WBC 5.3 (3.8-10.6) k/uL RBC 4.92 (4.30-5.90) m/uL Hgb 15.0 (13.0-17.5) gm/dL Hct 45.1 (39.0-53.0) % MCV 91.7 (80.0-100.0) fL MCH 30.4 (25.0-35.0) pg MCHC 33.2 (31.0-37.0) g/dL RDW 13.7 (11.5-15.5) % Plt Count 107 L (150-450) k/uL Neutrophils % 77 % Lymphocytes % 14 % Monocytes % 5 % Eosinophils % 1 % Basophils % 1 % Neutrophils # 4.1 (1.3-7.7) k/uL Lymphocytes # 0.7 L (1.0-4.8) k/uL Monocytes # 0.3 (0-1.0) k/uL Eosinophils # 0.0 (0-0.7) k/uL Basophils # 0.0 (0-0.2) k/uL PT (9.0-12.0) sec INR (<1.2) APTT (22.0-30.0) sec Sodium 135 L (137-145) mmol/L Potassium 4.5 (3.5-5.1) mmol/L Chloride 104 (98-107) mmol/L Carbon Dioxide 22 (22-30) mmol/L Anion Gap 9 mmol/L BUN 21 H (9-20) mg/dL Creatinine 0.90 (0.66-1.25) mg/dL Est GFR (CKD-EPI)AfAm >90 (>60 ml/min/1.73 sqM) Est GFR (CKD-EPI)NonAf 82 (>60 ml/min/1.73 sqM) Glucose 102 H (74-99) mg/dL Plasma Lactic Acid Ronaldo (0.7-2.0) mmol/L Calcium 8.5 (8.4-10.2) mg/dL Total Bilirubin 1.2 (0.2-1.3) mg/dL AST 43 (17-59) U/L ALT 29 (21-72) U/L Alkaline Phosphatase 48 (38-126) U/L Troponin I (0.000-0.034) ng/mL Total Protein 6.6 (6.3-8.2) g/dL Albumin 3.8 (3.5-5.0) g/dL Lipase 167 (23-300) U/L Urine Color Yellow Urine Appearance Cloudy (Clear) Urine pH 5.5 (5.0-8.0) Ur Specific [place] 1.028 (1.001-1.035) Urine Protein 1+ H (Negative) Urine Glucose (UA) Negative (Negative) Urine Ketones 1+ H (Negative) Urine Blood Negative (Negative) Urine Nitrite Negative (Negative) Urine Bilirubin Negative (Negative) Urine Urobilinogen 2.0 (<2.0) mg/dL Ur Leukocyte Esterase Small H (Negative) Urine RBC 2 (0-5) /hpf Urine WBC 28 H (0-5) /hpf Ur Squamous Epith Cells <1 (0-4) /hpf Urine Bacteria Few H (None) /hpf Urine Mucus Many H (None) /hpf 05/27/18 05/27/18 05/27/18 Range/Units 10:21 10:21 10:21 WBC (3.8-10.6) k/uL RBC (4.30-5.90) m/uL Hgb (13.0-17.5) gm/dL Hct (39.0-53.0) % MCV (80.0-100.0) fL MCH (25.0-35.0) pg MCHC (31.0-37.0) g/dL RDW (11.5-15.5) % Plt Count (150-450) k/uL Neutrophils % % Lymphocytes % % Monocytes % % Eosinophils % % Basophils % % Neutrophils # (1.3-7.7) k/uL Lymphocytes # (1.0-4.8) k/uL Monocytes # (0-1.0) k/uL Eosinophils # (0-0.7) k/uL Basophils # (0-0.2) k/uL PT 9.8 (9.0-12.0) sec INR 1.0 (<1.2) APTT 25.0 (22.0-30.0) sec Sodium (137-145) mmol/L Potassium (3.5-5.1) mmol/L Chloride (98-107) mmol/L Carbon Dioxide (22-30) mmol/L Anion Gap mmol/L BUN (9-20) mg/dL Creatinine (0.66-1.25) mg/dL Est GFR (CKD-EPI)AfAm (>60 ml/min/1.73 sqM) Est GFR (CKD-EPI)NonAf (>60 ml/min/1.73 sqM) Glucose (74-99) mg/dL Plasma Lactic Acid Ronaldo 1.3 (0.7-2.0) mmol/L Calcium (8.4-10.2) mg/dL Total Bilirubin (0.2-1.3) mg/dL AST (17-59) U/L ALT (21-72) U/L Alkaline Phosphatase (38-126) U/L Troponin I 0.013 (0.000-0.034) ng/mL Total Protein (6.3-8.2) g/dL Albumin (3.5-5.0) g/dL Lipase (23-300) U/L Urine Color Urine Appearance (Clear) Urine pH (5.0-8.0) Ur Specific [place] (1.001-1.035) Urine Protein (Negative) Urine Glucose (UA) (Negative) Urine Ketones (Negative) Urine Blood (Negative) Urine Nitrite (Negative) Urine Bilirubin (Negative) Urine Urobilinogen (<2.0) mg/dL Ur Leukocyte Esterase (Negative) Urine RBC (0-5) /hpf Urine WBC (0-5) /hpf Ur Squamous Epith Cells (0-4) /hpf Urine Bacteria (None) /hpf Urine Mucus (None) /hpf Disposition Clinical Impression: Mesenteric ischemia Disposition: OTHER INSTITUTION NOT DEFINED Condition: Fair Referrals: Doretha Rose MD [Primary Care Provider] - 1-2 days Time of Disposition: 12:40 - Out of Hospital Transfer - Req. Specs Out of Hospital Transfer - Requested Specifics: Other Emergency Center ([facility]
[2018-05-27 10:32] LABS: Basophils % (A) 1 %; Eosinophils % (A) 1 %; HCT 45.1 % (39.0-53.0); Lymphocytes # (A) 0.7 k/uL (1.0-4.8); Lymphocytes % (A) 14 %; MCH 30.4 pg (25.0-35.0); MCHC 33.2 g/dL (31.0-37.0); MCV 91.7 fL (80.0-100.0); Mean Platelet Volume 9.5; Monocytes # (A) 0.3 k/uL (0-1.0); Monocytes % (A) 5 %; Neutrophils # (A) 4.1 k/uL (1.3-7.7); Neutrophils % (A) 77 %; Platelet Count 107 k/uL (150-450); RBC 4.92 m/uL (4.30-5.90); RDW 13.7 % (11.5-15.5); WBC 5.3 k/uL (3.8-10.6)
[2018-05-27 10:39] LABS: Appearance,Urine Cloudy (Clear); Bacteria,Urine Few /hpf; Bilirubin,Urine Negative (Negative); Blood,Urine Negative (Negative); Color,Urine Yellow; Glucose,Urine (UA) Negative (Negative); Ketones,Urine 1+ (Negative); Leukocyte Esterase,Urine Small (Negative); Mucus,Urine Many /hpf; Nitrite,Urine Negative (Negative); PH, Urine 5.5 (5.0-8.0); Protein,Urine 1+ (Negative); RBC,Urine 2 /hpf (0-5); Specific Gravity,Urine 1.028 (1.001-1.035); Squamous Epithelial Cell,Urine <1 /hpf (0-4); WBC,Urine 28 /hpf (0-5)
[2018-05-27 10:45] LABS: Prothrombin Time 9.8 sec (9.0-12.0)
[2018-05-27 10:46] LABS: ALT 29 U/L (21-72); AST 43 U/L (17-59); Albumin 3.8 g/dL (3.5-5.0); Alkaline Phosphatase 48 U/L (38-126); Anion Gap 9 mmol/L; Blood Urea Nitrogen 21 mg/dL (9-20); Calcium 8.5 mg/dL (8.4-10.2); Carbon Dioxide 22 mmol/L (22-30); Chloride 104 mmol/L (98-107); Glucose 102 mg/dL (74-99); Lipase 167 U/L (23-300); Sodium 135 mmol/L (137-145); Total Bilirubin 1.2 mg/dL (0.2-1.3); Total Protein 6.6 g/dL (6.3-8.2)
[2018-05-27 10:52] LABS: Potassium 4.5 mmol/L (3.5-5.1)
--- NOTE | 2018-05-27 12:13 | CT ---
EXAMINATION TYPE: CT angio abdomen pelvis DATE OF EXAM: 05/27/2018 COMPARISON: None HISTORY: Pain not further specified. CT DLP: 1687.5 mGycm, Automated Exposure Control for Dose Reduction was Utilized. CONTRAST: CTA scan of the abdomen and pelvis is performed without oral and with IV Contrast, patient injected w ith 100 mL of Isovue 370. Three-D reconstructed images are created on independent workstation and rev iewed. FINDINGS: VASCULAR: There is moderate to severe calcified plaque of aorta extending into branch vessels. No ane urysmal change is seen. Postcontrast images show no evidence of linear hypodensity to suggest dissect ion. There is significant stenosis in the SMA shortly after its origin seen best paracoronal image 75 series 15. Significant stenosis in the celiac axis shortly after its origin to 2 prominent calcified plaque is felt present also. Bilateral renal arteries are small to moderate size and caliber with ca lcified plaque at origin, cannot exclude significant stenosis on the right. There is patent HAMMAD witho ut significant plaque or stenosis. Common iliac arteries bilaterally show moderate calcified plaque w ithout significant stenosis. There is mild to moderate calcified plaque in the internal iliac arterie s without significant stenosis. There is minimal calcified plaque in the external iliac arteries bila terally. There is more moderate calcified plaque at bilateral common femoral arteries with bifurcatio n into superficial and deep femoral arteries, cannot exclude significant stenosis in the left groin. LUNG BASES: Dependent atelectasis and/or infiltrates in both bases is present. There is partial visua lization of sternal wires. LIVER/GB: Visualized liver is low dense on noncontrast images consistent with diffuse fatty infiltrat ion. Gallbladder has distended margins. PANCREAS: Mild fat replaced atrophy of the pancreas in the proximal to mid body is seen. SPLEEN: No significant abnormality is seen. ADRENALS: No significant abnormality is seen. KIDNEYS: No significant abnormality is seen. BOWEL: No significant abnormality is seen. PROSTATE/SEMINAL VESICLES: The prostate gland is felt enlarged in size. It is suboptimally visualized due to artifact from adjacent left hip arthroplasty. LYMPH NODES: No greater than 1cm abdominal or pelvic lymph nodes are appreciated. OSSEOUS STRUCTURES: Metallic hardware from left hip arthroplasty causes streak artifact limiting eval uation of pelvic structures. There is moderate multilevel spurring in the thoracolumbar spine. There is moderate to severe disc space narrowing with posterior spur disc complex effacing anterior thecal sac at L2-L3 level and posterior facet arthropathy effacing posterior lateral thecal sac near axial i mage 64 series 17. There is multilevel facet arthropathy below this. OTHER: No significant additional abnormality is seen. IMPRESSION: Severely calcified plaque makes accurate quantification or evaluation of significant sten osis suboptimal in small vessels, there is suspected significant stenosis greater than 50% at origin of celiac axis and in the SMA. Cannot exclude significant stenosis at origin of right renal artery an d in the left common femoral artery near bifurcation in the left groin. There is no convincing eviden ce of solid organ or bowel ischemia however.
[2018-05-27] MEDS ORDERED: metroNIDAZOLE-NS PMX 500 MG in SALINE 1 100ML.BAG IVPB STA (12:37)
[2018-05-27] MEDS ORDERED: cefTRIAXone IN SWFI 1,000 MG/10 ML SYRINGE IVP ONE (12:45)
[2018-05-27 13:36] VITALS: BP 149/62; PULSE 90; RESP 18; TEMP 98
== END 2018-05-27 14:00 | disposition short-term general hospital (02) ==
LOC: EC 09:41
DX: K55.059 Acute (reversible) ischemia of intestine, part and extent unspecified (principal); I77.4 Celiac artery compression syndrome; K55.1 Chronic vascular disorders of intestine; I70.90 Unspecified atherosclerosis; R06.02 Shortness of breath; I25.10 Atherosclerotic heart disease of native coronary artery without angina pectoris; I11.0 Hypertensive heart disease with heart failure; I50.9 Heart failure, unspecified; J44.9 Chronic obstructive pulmonary disease, unspecified; E78.5 Hyperlipidemia, unspecified; G47.33 Obstructive sleep apnea (adult) (pediatric); F41.9 Anxiety disorder, unspecified; F32.9 Major depressive disorder, single episode, unspecified; Z87.891 Personal history of nicotine dependence; Z79.899 Other long term (current) drug therapy; Z79.82 Long term (current) use of aspirin; Z79.52 Long term (current) use of systemic steroids; Z82.49 Family history of ischemic heart disease and other diseases of the circulatory system; Z90.49 Acquired absence of other specified parts of digestive tract; Z95.5 Presence of coronary angioplasty implant and graft; Z95.1 Presence of aortocoronary bypass graft
CPT/HCPCS: 99285; 96365; 96375 ×3; 96361; 36415; 93005; 80053; 83605; 83690; 84484; 85025; 85610; 85730; 81001; 74174; J2405; J0696; J2270; Q9967

== ENCOUNTER 2019-10-20 14:06 | Observation (INO) | payer MEDICARE ==
--- NOTE | 2019-10-20 14:42 | ED ---
General Adult HPI - General Chief complaint: Shortness of Breath Stated complaint: FER Time Seen by Provider: 10/20/19 14:21 Source: patient, family, RN notes reviewed Mode of arrival: ambulatory Limitations: altered mental status - History of Present Illness Initial comments: Patient is a pleasant 79-year-old male presenting to the emergency Department with with complaints of difficulty breathing. Symptoms have progressed with past 3-4 days. No cough or fever. Patient does feel somewhat achy throughout. Dyspnea does worsen with exertion. Patient feels very fatigued. Patient has difficulty concentrating at times. - Related Data Home Medications Medication Instructions Recorded Confirmed Aspirin [Adult Low Dose Aspirin EC] 81 mg PO DAILY 02/13/16 05/27/18 Atenolol [Tenormin] 25 mg PO DAILY 02/13/16 05/27/18 Atorvastatin [Lipitor] 40 mg PO HS 02/13/16 05/27/18 Ezetimibe [Zetia] 10 mg PO DAILY 02/13/16 05/27/18 FLUoxetine HCL [PROzac] 60 mg PO DAILY 02/13/16 05/27/18 Nitroglycerin Sl Tabs [Nitrostat] 0.4 mg SUBLINGUAL Q5M PRN 06/22/16 05/27/18 clonazePAM [KlonoPIN] 0.5 mg PO BID 06/22/16 05/27/18 Omeprazole [PriLOSEC] 20 mg PO AC-BID 05/16/17 05/27/18 Ticagrelor [Brilinta] 60 mg PO BID 05/16/17 05/27/18 predniSONE 10 mg PO DAILY 05/27/18 05/27/18 Previous Rx's Medication Instructions Recorded Furosemide [Lasix] 20 mg PO DAILY #30 tab 06/25/16 Ipratropium-Albuterol Nebulize 3 ml INHALATION RT-QID ampul.neb 06/25/16 [Duoneb 0.5 mg-3 mg/3 ml Soln] Budesonide-Formot 160-4.5 Mcg 1 puff INHALATION RT-BID #1 inh 05/17/17 [Symbicort 160-4.5 Mcg Inhaler] Allergies Allergy/AdvReac Type Severity Reaction Status Date / Time No Known Allergies Allergy Verified 10/20/19 14:16 Review of Systems ROS Statement: Those systems with pertinent positive or pertinent negative responses have been documented in the HPI. ROS Other: All systems not noted in ROS Statement are negative. Constitutional: Reports: as per HPI Eyes: Denies: eye pain ENT: Denies: ear pain Respiratory: Reports: dyspnea Cardiovascular: Denies: chest pain Endocrine: Reports: fatigue Gastrointestinal: Denies: abdominal pain Genitourinary: Denies: dysuria Musculoskeletal: Denies: back pain Skin: Denies: rash Past Medical History Past Medical History: Coronary Artery Disease (CAD), Heart Failure, COPD, Hyperlipidemia, Hypertension Additional Past Medical History / Comment(s): COPD, obesity, coronary artery disease with previous bypass surgery, cataracts, hiatal hernia, obstructive sleep apnea for which the patient needs to be reevaluated for CPAP therapy. His latest sleep evaluation was done many years back. 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 Mother Family Medical History: CVA/TIA Additional Family Medical History / Comment(s): at age 99 3/4 from a stoke General Exam Limitations: altered mental status General appearance: alert Head exam: Present: normocephalic Eye exam: Present: normal appearance, PERRL ENT exam: Present: normal oropharynx Neck exam: Present: normal inspection Respiratory exam: Present: wheezes, rhonchi Cardiovascular Exam: Present: regular rate, normal rhythm GI/Abdominal exam: Present: soft. Absent: tenderness Extremities exam: Present: normal inspection. Absent: pedal edema, calf tenderness Neurological exam: Present: alert Psychiatric exam: Present: normal affect, normal mood Skin exam: Present: normal color Course Vital Signs 10/20/19 10/20/19 14:13 15:03 Temperature 97.9 F Pulse Rate 72 Respiratory 20 18 Rate Blood Pressure 131/74 O2 Sat by Pulse 97 Oximetry - Reevaluation(s) Reevaluation #1: 10/20/19 17:04 Repeat EKG shows sinus rhythm with a rate of 69. PVC present. FL 178. QRS 144. QT 444. QTC 475. Superior axis. Right bundle branch block. T-wave inversion lateral. EKG Findings - EKG Comments: EKG Findings:: Sinus rhythm at 67. PVC present. FL 186. QRS 146. QT 442. QTC 467. Left axis. Right bundle branch block. No acute ST change. Medical Decision Making - Medical Decision Making Patient reevaluated and resting comfortably in bed. Patient and family updated on results and plan. Patient did have an episode of chest discomfort while in the emergency department however is resolved at this point. - Lab Data Result diagrams: 10/20/19 15:11 10/20/19 15:11 Lab Results 10/20/19 10/20/19 10/20/19 Range/Units 15:11 15:11 15:11 WBC 6.7 (3.8-10.6) k/uL RBC 4.66 (4.30-5.90) m/uL Hgb 14.2 (13.0-17.5) gm/dL Hct 42.4 (39.0-53.0) % MCV 91.0 (80.0-100.0) fL MCH 30.4 (25.0-35.0) pg MCHC 33.5 (31.0-37.0) g/dL RDW 12.8 (11.5-15.5) % Plt Count 141 L (150-450) k/uL Neutrophils % 67 % Lymphocytes % 16 % Monocytes % 9 % Eosinophils % 3 % Basophils % 2 % Neutrophils # 4.5 (1.3-7.7) k/uL Lymphocytes # 1.1 (1.0-4.8) k/uL Monocytes # 0.6 (0-1.0) k/uL Eosinophils # 0.2 (0-0.7) k/uL Basophils # 0.1 (0-0.2) k/uL PT (9.0-12.0) sec INR (<1.2) APTT (22.0-30.0) sec D-Dimer (<0.60) mg/L FEU Sodium 136 L (137-145) mmol/L Potassium 4.8 (3.5-5.1) mmol/L Chloride 104 (98-107) mmol/L Carbon Dioxide 22 (22-30) mmol/L Anion Gap 10 mmol/L BUN 18 (9-20) mg/dL Creatinine 0.90 (0.66-1.25) mg/dL Est GFR (CKD-EPI)AfAm >90 (>60 ml/min/1.73 sqM) Est GFR (CKD-EPI)NonAf 82 (>60 ml/min/1.73 sqM) Glucose 95 (74-99) mg/dL Calcium 9.1 (8.4-10.2) mg/dL Magnesium 2.3 (1.6-2.3) mg/dL Total Bilirubin 0.5 (0.2-1.3) mg/dL AST 29 (17-59) U/L ALT 23 (4-49) U/L Alkaline Phosphatase 61 (38-126) U/L Troponin I (0.000-0.034) ng/mL NT-Pro-B Natriuret Pep 55 pg/mL Total Protein 6.5 (6.3-8.2) g/dL Albumin 3.9 (3.5-5.0) g/dL 10/20/19 10/20/19 Range/Units 15:11 15:11 WBC (3.8-10.6) k/uL RBC (4.30-5.90) m/uL Hgb (13.0-17.5) gm/dL Hct (39.0-53.0) % MCV (80.0-100.0) fL MCH (25.0-35.0) pg MCHC (31.0-37.0) g/dL RDW (11.5-15.5) % Plt Count (150-450) k/uL Neutrophils % % Lymphocytes % % Monocytes % % Eosinophils % % Basophils % % Neutrophils # (1.3-7.7) k/uL Lymphocytes # (1.0-4.8) k/uL Monocytes # (0-1.0) k/uL Eosinophils # (0-0.7) k/uL Basophils # (0-0.2) k/uL PT 9.9 (9.0-12.0) sec INR 1.0 (<1.2) APTT 23.2 (22.0-30.0) sec D-Dimer 0.69 H (<0.60) mg/L FEU Sodium (137-145) mmol/L Potassium (3.5-5.1) mmol/L Chloride (98-107) mmol/L Carbon Dioxide (22-30) mmol/L Anion Gap mmol/L BUN (9-20) mg/dL Creatinine (0.66-1.25) mg/dL Est GFR (CKD-EPI)AfAm (>60 ml/min/1.73 sqM) Est GFR (CKD-EPI)NonAf (>60 ml/min/1.73 sqM) Glucose (74-99) mg/dL Calcium (8.4-10.2) mg/dL Magnesium (1.6-2.3) mg/dL Total Bilirubin (0.2-1.3) mg/dL AST (17-59) U/L ALT (4-49) U/L Alkaline Phosphatase (38-126) U/L Troponin I <0.012 (0.000-0.034) ng/mL NT-Pro-B Natriuret Pep pg/mL Total Protein (6.3-8.2) g/dL Albumin (3.5-5.0) g/dL - Radiology Data Radiology results: image reviewed (X-ray shows chronic changes) Disposition Clinical Impression: Acute exacerbation of chronic obstructive pulmonary disease (COPD), Chest pain Disposition: ADMITTED IP TO THIS HOSP Is patient prescribed a controlled substance at d/c from ED?: No Referrals: Doretha Rose MD [Primary Care Provider] - 1-2 days Decision Time: 17:04
[2019-10-20] MEDS ORDERED: NITROGLYCERIN SL TABS 0.4 MG TAB SUBLINGUAL PRN ×2 (15:01→17:05)
--- NOTE | 2019-10-20 15:33 | XR ---
EXAMINATION TYPE: XR chest 2V DATE OF EXAM: 10/20/2019 COMPARISON: Chest x-ray May 10, 2018 HISTORY: Chest pain and shortness of breath. History of triple bypass. TECHNIQUE: Frontal and lateral views of the chest are obtained. FINDINGS: Post-CABG changes with mediastinal clips and sternal wires is redemonstrated. There is mold maker helper rosalee parenchymal changes bilaterally redemonstrated without suspicious new focal airspace opacity, ple ural effusion, or pneumothorax. The cardiac silhouette size is stable and upper limits of normal . M ultilevel spurring in the spine redemonstrated. IMPRESSION: Fairly moderate chronic pulmonary fibrotic changes are thought present bilaterally. No c onvincing evidence of suspicious new acute pulmonary process.
[2019-10-20 15:35] LABS: Basophils # (A) 0.1 k/uL (0-0.2); Basophils % (A) 2 %; Eosinophils # (A) 0.2 k/uL (0-0.7); Eosinophils % (A) 3 %; HCT 42.4 % (39.0-53.0); HGB 14.2 gm/dL (13.0-17.5); Lymphocytes # (A) 1.1 k/uL (1.0-4.8); Lymphocytes % (A) 16 %; MCH 30.4 pg (25.0-35.0); MCHC 33.5 g/dL (31.0-37.0); Mean Platelet Volume 9.9; Monocytes # (A) 0.6 k/uL (0-1.0); Monocytes % (A) 9 %; Neutrophils # (A) 4.5 k/uL (1.3-7.7); Neutrophils % (A) 67 %; Platelet Count 141 k/uL (150-450); RBC 4.66 m/uL (4.30-5.90); RDW 12.8 % (11.5-15.5); WBC 6.7 k/uL (3.8-10.6)
[2019-10-20 15:45] LABS: ALT 23 U/L (4-49); AST 29 U/L (17-59); African American GFR (CKD) >90 (>60 ml/min/1.73 sqM); Albumin 3.9 g/dL (3.5-5.0); Alkaline Phosphatase 61 U/L (38-126); Anion Gap 10 mmol/L; Blood Urea Nitrogen 18 mg/dL (9-20); Calcium 9.1 mg/dL (8.4-10.2); Carbon Dioxide 22 mmol/L (22-30); Chloride 104 mmol/L (98-107); Glucose 95 mg/dL (74-99); Magnesium 2.3 mg/dL (1.6-2.3); Non-African American GFR(CKD) 82 (>60 ml/min/1.73 sqM); Potassium 4.8 mmol/L (3.5-5.1); Sodium 136 mmol/L (137-145); Total Bilirubin 0.5 mg/dL (0.2-1.3); Total Protein 6.5 g/dL (6.3-8.2)
[2019-10-20 16:03] LABS: Partial Thromboplastin Time 23.2 sec (22.0-30.0); Prothrombin Time 9.9 sec (9.0-12.0)
[2019-10-20 16:12] LABS: D-Dimer 0.69 mg/L FEU (<0.60)
[2019-10-20] MEDS ORDERED: IPRATROPIUM-ALBUTEROL 3 ML NEB INHALATION PRN (17:05)
[2019-10-20] MEDS ORDERED: ASPIRIN 81 MG PO STA (17:05)
[2019-10-20] MEDS: IPRATROPIUM-ALBUTEROL 3 ML NEB INHALATION SCH (18:14)
[2019-10-20] MEDS: methylPREDNISolone SOD SUCCI 125 MG/2 ML VIAL IV SCH (18:31)
[2019-10-20] MEDS: NITROGLYCERIN OINT 1 INCH/GM PACKET TOPICAL SCH (18:32)
[2019-10-20] MEDS ORDERED: ZOLPIDEM 5 MG TAB PO STA (23:38)
[2019-10-21] MEDS: NITROGLYCERIN OINT 1 INCH/GM PACKET TOPICAL SCH ×2 (00:19→05:56)
[2019-10-21] MEDS: methylPREDNISolone SOD SUCCI 125 MG/2 ML VIAL IV SCH ×3 (00:19→13:29)
[2019-10-21 03:00] LABS: Cholesterol 128 mg/dL (<200); HDL Cholesterol 48 mg/dL (40-60); LDL Cholesterol,Calculated 68 mg/dL (0-99); Triglycerides 58 mg/dL (<150)
[2019-10-21 06:35] LABS: Glucose,Whole Blood 148 mg/dL (75-99)
[2019-10-21 07:53] VITALS: RESP 18; TEMP 98.2
[2019-10-21] MEDS: IPRATROPIUM-ALBUTEROL 3 ML NEB INHALATION SCH ×3 (07:57→14:51)
[2019-10-21] MEDS ORDERED: ASPIRIN 325 MG TAB PO SCH (09:00)
--- NOTE | 2019-10-21 10:13 | P.CRDCN ---
History of Present Illness History of present illness: HISTORY OF PRESENTING ILLNESS This is a pleasant 79-year-old male past medical history significant for coronary artery disease status post bypass grafting approximately 30 years ago and subsequent stent placement, peripheral vascular disease status post iliac stenting, hypertension, dyslipidemia, COPD and chronic diastolic heart failure. He follows in the office with Dr. Vuong. We have been asked to see in consultation for chest pain. He states he presented to the hospital with symptoms of bilateral shoulder, wrists, knees, hips and leg pain. He has been feeling overall weak and fatigued. Last week he was carrying in a box of apples from the car to the house and his legs became acute weak and he almost lost his balance. He also has been experiencing increase shortness of breath over the last 3-4 days. He has a dry cough with no significant sputum and his breathing is worse with activity or exertion. He denies chest pain, dizziness or palpitations. He states approximately 2-3 years ago he had a stent placed in his heart as well as in his groin. Exact details unavailable. He is maintained on dual anti-platelet therapy. DIAGNOSTICS EKG reveals sinus mechanism with right bundle branch block and left axis deviation with non-specific T-wave abnormalities that have been seen in the past. Chest xray reveals fairly moderate chronic pulmonary fibrotic changes b ilaterally, no new acute process. Laboratory reviewed, WBC 6.7, hemoglobin 14.2, platelets 141, d-dimer 0.69, sodium 136, potassium 4.8, creatinine 0.9, magnesium 2.3, cardiac enzymes negative 3, NT proBNP 55, LDL 68. Current cardiac medications include that he had 10 mg daily, Lasix 20 mg daily, aspirin 81 mg daily, atenolol 25 mg daily, Plavix 75 mg daily and rosuvastatin 10 mg at bedtime. Most recent echocardiogram obtained 2016 revealed mildly impaired LV systolic function with EF 45-50%, mild MR and mild TR. REVIEW OF SYSTEMS At the time of my exam: CONSTITUTIONAL: Denies fever or chills. CARDIOVASCULAR: Complains of shortness of breath. Denies chest pain, orthopnea, PND or palpitations. RESPIRATORY: Complains of cough. GASTROINTESTINAL: Denies abdominal pain, diarrhea, constipation, nausea or vomiting. MUSCULOSKELETAL: Denies myalgias. NEUROLOGIC: Denies numbness, tingling or weakness. ENDOCRINE: Denies fatigue, weight change, polydipsia or polyurina. GENITOURINARY: Denies burning, hematuria or urgency with micturation. HEMATOLOGIC: Denies history of anemia or bleeding. PHYSICAL EXAMINATION Blood pressure 159/76 heart rate 72 afebrile and maintaining oxygen saturation on room air. CONSTITUTIONAL: No apparent distress. HEENT: Head is normocephalic. Pupils are equal, round. Sclerae anicteric. Mucous membranes of the mouth are moist. No JVD. No carotid bruit. CHEST EXAMINATION: Diminished bilaterally, scattered expiratory rhonchi, no wheezes or rales. No chest wall tenderness is noted on palpation or with deep breathing. HEART EXAMINATION: Regular rate and rhythm. S1, S2 heard. Systolic ejection murmur at the left sternal border, no gallops or rub. ABDOMEN: Soft, nontender. Positive bowel sounds. EXTREMITIES: 1+ peripheral pulses, no lower extremity edema and no calf tenderness. NEUROLOGIC EXAMINATION: Patient is awake, alert and oriented x3. ASSESSMENT Exertional shortness of breath, no evidence of heart failure he is clinically euvolemic. Likely related to COPD and pulmonary fibrosis Exacerbation of COPD Stable CAD and PAD Thrombocytopenia Hypertension Dyslipidemia Chronic diastolic heart failure Obesity, BMI 33 Former nicotine and cigar dependence PLAN An acute coronary event has been ruled out. Symptoms not related to angina, likely secondary to COPD and pulmonary fibrosis. Pulmonary is also consulted to see the patient. Resume cardiac medications as previously ordered. Obtain 2D echocardiogram and doppler study to assess cardiac structure and function. Stable coronary artery disease and peripheral vascular disease. Recommend he follows up with his dinkey operator slag upon discharge for outpatient EMILIE and peripheral vascular evaluation. Thank you kindly for this consultation. Nurse Practitioner note has been reviewed, I agree with a documented findings and plan of care. Patient was seen and examined. Past Medical History Past Medical History: Coronary Artery Disease (CAD), Heart Failure, COPD, Hyperlipidemia, Hypertension Additional Past Medical History / Comment(s): COPD, obesity, coronary artery disease with previous bypass surgery, cataracts, hiatal hernia, obstructive sleep apnea for which the patient needs to be reevaluated for CPAP therapy. His latest sleep evaluation was done many years back. 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 LIVES WITH HIS OF 55 YEARS IN A SINGLE LEVEL HOME THAT HAS 4 [address]PS. 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 NO OUT SIDE SERVICES RECIEVED. HAS A NEBULIZER. NO SERVICE IN PAST. RETIRED FROM [employer]. THEY HAVE 1 PET DOG. Smoking Status: Former smoker Past Alcohol Use History: None Reported Additional Past Alcohol Use History / Comment(s): STARTED SMOKING IN 1952, QUIT 1984 Past Drug Use History: None Reported Additional Drug Use History / Comment(s): QUIT MANY YEARS AGO. - Past Family History Father Family Medical History: Hyperlipidemia, Myocardial Infarction ([place]) Additional Family Medical History / Comment(s): father and brothers(mi's in their 40's and 50's). Mother Family Medical History: CVA/TIA Additional Family Medical History / Comment(s): at age 99 3/4 from a stoke Medications and Allergies Home Medications Medication Instructions Recorded Confirmed Type Aspirin [Adult Low Dose Aspirin EC] 81 mg PO DAILY 02/13/16 10/20/19 History Atenolol [Tenormin] 25 mg PO DAILY 02/13/16 10/20/19 History Ezetimibe [Zetia] 10 mg PO DAILY 02/13/16 10/20/19 History Nitroglycerin Sl Tabs [Nitrostat] 0.4 mg SUBLINGUAL Q5M PRN 06/22/16 10/20/19 History clonazePAM [KlonoPIN] 0.5 mg PO DAILY PRN 06/22/16 10/20/19 History Furosemide [Lasix] 20 mg PO DAILY #30 tab 06/25/16 10/20/19 Rx Albuterol Nebulized [Ventolin 2.5 mg INHALATION Q6H 10/20/19 10/20/19 History Nebulized] Clopidogrel [Plavix] 75 mg PO DAILY 10/20/19 10/20/19 History DULoxetine HCL [Cymbalta] 60 mg PO DAILY 10/20/19 10/20/19 History Escitalopram [Lexapro] 20 mg PO DAILY 10/20/19 10/20/19 History Fluticasone/Umeclidin/Vilanter 1 inhalation INHALATION RT-DAILY 10/20/19 10/20/19 History [Trelegy Ellipta 100-62.5-25] Rosuvastatin [Crestor] 10 mg PO HS 10/20/19 10/20/19 History predniSONE 2.5 mg PO DAILY 10/20/19 10/20/19 History Allergies Allergy/AdvReac Type Severity Reaction Status Date / Time No Known Allergies Allergy Verified 10/20/19 19:07 Physical Exam Vitals: Vital Signs Temp Pulse Pulse Resp BP BP Pulse Ox 10/21/19 07:58 72 10/21/19 07:35 98.2 F 87 18 159/76 97 10/21/19 02:18 98.0 F 77 17 127/63 98 10/21/19 01:50 110/63 96 10/21/19 01:00 72 17 102/67 95 10/20/19 23:45 98.5 F 68 18 119/64 95 10/20/19 22:09 69 10/20/19 21:55 80 10/20/19 18:36 68 20 143/83 98 10/20/19 18:24 72 10/20/19 18:14 78 10/20/19 17:33 66 18 129/75 96 10/20/19 15:03 18 10/20/19 14:13 97.9 F 72 20 131/74 97 Intake and Output 10/20/19 10/21/19 10/21/19 22:59 06:59 14:59 Output Total 500 Balance -500 Output: Urine 500 Other: # Voids 1 Weight 100.5 kg Results 10/20/19 15:11 10/20/19 15:11 Cardiac Enzymes 10/20/19 10/20/19 10/20/19 Range/Units 15:11 15:11 21:47 AST 29 (17-59) U/L Troponin I <0.012 <0.012 (0.000-0.034) ng/mL 10/21/19 Range/Units 02:32 AST (17-59) U/L Troponin I <0.012 (0.000-0.034) ng/mL Coagulation 10/20/19 Range/Units 15:11 PT 9.9 (9.0-12.0) sec APTT 23.2 (22.0-30.0) sec Lipids 10/21/19 Range/Units 02:32 Triglycerides 58 (<150) mg/dL Cholesterol 128 (<200) mg/dL HDL Cholesterol 48 (40-60) mg/dL CBC 10/20/19 Range/Units 15:11 WBC 6.7 (3.8-10.6) k/uL RBC 4.66 (4.30-5.90) m/uL Hgb 14.2 (13.0-17.5) gm/dL Hct 42.4 (39.0-53.0) % Plt Count 141 L (150-450) k/uL Comprehensive Metabolic Panel 10/20/19 Range/Units 15:11 Sodium 136 L (137-145) mmol/L Potassium 4.8 (3.5-5.1) mmol/L Chloride 104 (98-107) mmol/L Carbon Dioxide 22 (22-30) mmol/L BUN 18 (9-20) mg/dL Creatinine 0.90 (0.66-1.25) mg/dL Glucose 95 (74-99) mg/dL Calcium 9.1 (8.4-10.2) mg/dL AST 29 (17-59) U/L ALT 23 (4-49) U/L Alkaline Phosphatase 61 (38-126) U/L Total Protein 6.5 (6.3-8.2) g/dL Albumin 3.9 (3.5-5.0) g/dL Current Medications Generic Name Dose Route Start Last Admin Trade Name Freq PRN Reason Stop Dose Admin Albuterol/Ipratropium 3 ml 10/20/19 20:00 10/21/19 07:57 Duoneb 0.5 Mg-3 Mg/3 Ml Soln INHALATION 3 ml RT-QID ASA Administration Albuterol/Ipratropium 3 ml 10/20/19 17:05 10/20/19 21:54 Duoneb 0.5 Mg-3 Mg/3 Ml Soln INHALATION 3 ml RT-Q4H PRN Administration Shortness Of Breath Or Wheezing Aspirin 325 mg 10/21/19 09:00 Aspirin PO DAILY ASA Methylprednisolone Sodium Succinate 60 mg 10/20/19 18:00 10/21/19 05:57 Solu-Medrol IV 60 mg Q6HR ASA Administration Nitroglycerin 0.4 mg 10/20/19 15:01 10/20/19 15:02 Nitrostat SUBLINGUAL 0.4 mg ONCE PRN Administration Chest Pain Nitroglycerin 1 inch 10/20/19 18:00 10/21/19 05:56 Nitro-Bid Oint TOPICAL Not Given Q6HR ASA Intake and Output 10/20/19 10/21/19 10/21/19 22:59 06:59 14:59 Output Total 500 Balance -500 Output: Urine 500 Other: # Voids 1 Weight 100.5 kg 10/20/19 15:11 10/20/19 15:11
[2019-10-21] MEDS ORDERED: FUROSEMIDE 20 MG TAB PO SCH (10:15)
[2019-10-21] MEDS ORDERED: EZETIMIBE 10 MG TAB PO SCH (10:15)
[2019-10-21] MEDS ORDERED: ATENOLOL 25 MG TAB PO SCH (10:15)
[2019-10-21] MEDS ORDERED: CLOPIDOGREL 75 MG TAB PO SCH (10:15)
[2019-10-21 11:57] LABS: Glucose,Whole Blood 184 mg/dL (75-99)
--- NOTE | 2019-10-21 13:11 | P.HPIM ---
History of Present Illness This is completed H&P and discharge summary Hospital course: This is a pleasant 79 years old male with past medical history of coronary artery disease, status post CABG, heart failure, COPD, hyperlipidemia, hypertension. Patient states that yesterday he felt pain all over his body in the shoulder, arms and legs associated with some dyspnea, he had also some dull chest pain very mild central associated with tightness in his throat that decreased by nitroglycerin, his chest pain has resolved this morning however he had a little bit after 8 which is also resolved by nitroglycerin as per patient and currently he has no chest pain has 0/10. His breathing is better now. patient has chronic cough with white phlegm, with no recent worsening This is Dr. bryant from [facility] at [phone] Vitals Looks stable, patient is afebrile. Patient is saturating 93% on room air. Labs reviewed, CBC and BMP and liver enzymes were unremarkable, serial troponins are negative, d-dimer is mildly elevated at 0.6. Influenza is negative. Chest x-ray showing chronic fibrotic changes with no new acute process by radiologist Patient has been evaluated by analytics leader, acute coronary syndrome has been ruled out, there, did echocardiogram and follow-up as an outpatient with analytics leader for outpatient EMILIE and peripheral vascular evaluation Patient was cleared for discharge by analytics leader patient has elevated d-dimer, i explained to the patient is at-risk of pulmonary embolism and other risks including but not limited to , possible side effects is nephrotoxicity. Patient verbalized understanding however he does not want to do the test and he wants me to discuss it to the patient tried to call the and I called the [facility] and they left a message at [phone] and left a message to call back. Review of Systems CONSTITUTIONAL: No fever, no malaise, no fatigue. HEENT: No recent visual problems or hearing problems. Denied any sore throat. CARDIOVASCULAR: no palpitations, no syncope. PULMONARY: no hemoptysis. GASTROINTESTINAL: No diarrhea, no nausea, no vomiting, no abdominal pain. Normoactive bowel sounds. NEUROLOGICAL: No headaches, no weakness, no numbness. HEMATOLOGICAL: Denies any bleeding or petechiae. GENITOURINARY: Denies any burning micturition, frequency, or urgency. MUSCULOSKELETAL/RHEUMATOLOGICAL: Denies any joint pain, swelling, or any muscle pain. ENDOCRINE: Denies any polyuria or polydipsia. Past Medical History Past Medical History: Coronary Artery Disease (CAD), Heart Failure, COPD, Hyperlipidemia, Hypertension Additional Past Medical History / Comment(s): COPD, obesity, coronary artery disease with previous bypass surgery, cataracts, hiatal hernia, obstructive sleep apnea for which the patient needs to be reevaluated for CPAP therapy. His latest sleep evaluation was done many years back. 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 LIVES WITH HIS OF 55 YEARS IN A SINGLE LEVEL HOME THAT HAS 4 [address] STEPS. THEY WINTER IN [place]. NO OUT SIDE SERVICES RECIEVED. HAS A NEBULIZER. NO SERVICE IN PAST. RETIRED FROM [employer]. THEY HAVE 1 PET DOG. Smoking Status: Former smoker Past Alcohol Use History: None Reported Additional Past Alcohol Use History / Comment(s): STARTED SMOKING IN 1952, QUIT 1984 Past Drug Use History: None Reported Additional Drug Use History / Comment(s): QUIT MANY YEARS AGO. - Past Family History Father Family Medical History: Hyperlipidemia, Myocardial Infarction ([place]) Additional Family Medical History / Comment(s): father and brothers(mi's in their 40's and 50's). Mother Family Medical History: CVA/TIA Additional Family Medical History / Comment(s): at age 99 3/4 from a stoke Medications and Allergies Home Medications Medication Instructions Recorded Confirmed Type Aspirin [Adult Low Dose Aspirin EC] 81 mg PO DAILY 02/13/16 10/20/19 History Atenolol [Tenormin] 25 mg PO DAILY 02/13/16 10/20/19 History Ezetimibe [Zetia] 10 mg PO DAILY 02/13/16 10/20/19 History Nitroglycerin Sl Tabs [Nitrostat] 0.4 mg SUBLINGUAL Q5M PRN 06/22/16 10/20/19 History clonazePAM [KlonoPIN] 0.5 mg PO DAILY PRN 06/22/16 10/20/19 History Furosemide [Lasix] 20 mg PO DAILY #30 tab 06/25/16 10/20/19 Rx Albuterol Nebulized [Ventolin 2.5 mg INHALATION Q6H 10/20/19 10/20/19 History Nebulized] Clopidogrel [Plavix] 75 mg PO DAILY 10/20/19 10/20/19 History DULoxetine HCL [Cymbalta] 60 mg PO DAILY 10/20/19 10/20/19 History Escitalopram [Lexapro] 20 mg PO DAILY 10/20/19 10/20/19 History Fluticasone/Umeclidin/Vilanter 1 inhalation INHALATION RT-DAILY 10/20/19 10/20/19 History [Trelegy Ellipta 100-62.5-25] Rosuvastatin [Crestor] 10 mg PO HS 10/20/19 10/20/19 History predniSONE 2.5 mg PO DAILY 10/20/19 10/20/19 History Allergies Allergy/AdvReac Type Severity Reaction Status Date / Time No Known Allergies Allergy Verified 10/20/19 19:07 Physical Exam Vitals: Vital Signs Temp Pulse Pulse Resp BP BP Pulse Ox 10/21/19 12:04 69 10/21/19 11:48 68 10/21/19 11:05 98.2 F 92 18 150/75 93 L 10/21/19 08:13 74 10/21/19 07:58 72 10/21/19 07:35 98.2 F 87 18 159/76 97 10/21/19 02:18 98.0 F 77 17 127/63 98 10/21/19 01:50 110/63 96 10/21/19 01:00 72 17 102/67 95 10/20/19 23:45 98.5 F 68 18 119/64 95 10/20/19 22:09 69 10/20/19 21:55 80 10/20/19 18:36 68 20 143/83 98 10/20/19 18:24 72 10/20/19 18:14 78 10/20/19 17:33 66 18 129/75 96 10/20/19 15:03 18 10/20/19 14:13 97.9 F 72 20 131/74 97 Intake and Output 10/20/19 10/21/19 10/21/19 22:59 06:59 14:59 Intake Total 340 Output Total 500 Balance -160 Intake: Oral 240 Other 100 Output: Urine 500 Other: # Voids 1 Weight 100.5 kg GENERAL: The patient is alert and oriented x3, not in any acute distress. Well developed, well nourished. HEENT: Pupils are round and equally reacting to light. EOMI. No scleral icterus. No conjunctival pallor. Normocephalic, atraumatic. No pharyngeal erythema. No thyromegaly. CARDIOVASCULAR: S1 and S2 present. No murmurs, rubs, or gallops. PULMONARY: Chest is clear to auscultation, no wheezing or crackles. ABDOMEN: Soft, nontender, nondistended, normoactive bowel sounds. No palpable organomegaly. MUSCULOSKELETAL: No joint swelling or deformity. EXTREMITIES: No cyanosis, clubbing, or pedal edema. NEUROLOGICAL: Gross neurological examination did not reveal any focal deficits. SKIN: No rashes. No petechiae Results CBC & Chem 7: 10/20/19 15:11 10/20/19 15:11 Labs: Abnormal Lab Results - Last 24 Hours (Table) 10/20/19 10/20/19 10/20/19 Range/Units 15:11 15:11 15:11 Plt Count 141 L (150-450) k/uL D-Dimer 0.69 H (<0.60) mg/L FEU Sodium 136 L (137-145) mmol/L POC Glucose (mg/dL) (75-99) mg/dL 10/21/19 10/21/19 Range/Units 06:32 11:37 Plt Count (150-450) k/uL D-Dimer (<0.60) mg/L FEU Sodium (137-145) mmol/L POC Glucose (mg/dL) 148 H 184 H (75-99) mg/dL Thrombosis Risk Factor Assmnt - Choose All That Apply Each Factor Represents 1 point: Abnormal pulmonary function (COPD), Obesity (BMI >25) Each Risk Factor Represents 3 Points: Age 75 years or older Thrombosis Risk Factor Assessment Total Risk Factor Score: 5 Thrombosis Risk Factor Assessment Level: High Risk Assessment and Plan Assessment: Episodic dyspnea and chest pain, now better Elevated d-dimer Peripheral vascular disease with intermittent claudication Pulmonary fibrosis COPD Hypertension Hyperlipidemia Heart failure History of coronary artery disease status post CABG Plan: This is a pleasant 79 years old male who presents with some dyspnea and chest pain which feels better now however he still have episodes of chest pain like today. Cardiology recommended echocardiogram and follow-up as an outpatient for peripheral vascular disease, patient informed and he was to follow-up with his analytics leader. Also she has been evaluated by the pulmonary team and I discussed the case with pulmonary team. Patient has elevated d-dimer however he does not want to do CT NG of the chest now and he wants to wait till comes or we talked to her, message has left for the to call back. Patient understands that risks of pulmonary embolism including but not limited to . The mean time we'll check Doppler of the lower extremity Labs and medication were reviewed.. Continue same treatment. Continue with symptomatic treatment. Resume home medication. Monitor lytes and vitals. DVT and GI prophylaxis. Further recommendations of the clinical course of the patient DVT prophylaxis: Subcutaneous heparin GI Prophylaxis: Pepcid Prognosis is guarded
[2019-10-21] MEDS ORDERED: HEPARIN SODIUM,PORCINE 5,000 UNIT/ML 1 ML VIAL SQ SCH (13:15)
[2019-10-21] MEDS ORDERED: SODIUM CHLORIDE 0.9% 1,000 ML IV SCH (13:30)
--- NOTE | 2019-10-21 14:14 | P.CNPUL ---
History of Present Illness Consult date: 10/21/19 Reason for consult: dyspnea, chest pain Chief complaint: Dyspnea, chest pain History of present illness: 79-year-old male patient of Dr. Rose with past medical history of COPD for which patient follows with the payer specialist from [place], coronary artery disease previous bypass grafting surgery, chronic congestive heart failure, hypertension, hyperlipidemia, obstructive sleep apnea on CPAP therapy, anxiety, depression, former smoker, presented to the emergency department on 10/20/2019 for evaluation of dyspnea , and chest discomfort. Apparently patient's symptoms have progressed over the past 3-4 days, no increased cough, occasionally mostly at bedtime patient states he will bring up small amount of whitish yellowish colored sputum, he states he is feeling somewhat achy throughout, and especially in his bilateral shoulders. His pain does worsen with exertion, and overall patient is feeling fatigued. Denied any fever or chills, denied any hemoptysis, chest x-ray showed a fairly moderate chronic pulmonary fibrotic changes Zent bilaterally, but no evidence of suspicious new acute pulmonary process. EKG showed sinus rhythm with occasional PVCs and right bundle branch block pattern. CBC showed white blood cell count of 6.7, hemoglobin of 14.2, d-dimer was mildly elevated at 0.69, electrolytes and renal profile were unremarkable, troponins were negative 3, at less than 0.012, influenza screen was negative. he has been afebrile, he is on room air. Patient is on Ventolin nebulized treatments on the regular basis, and Trelegy Ellipta. Is not normally oxygen dependent. Does not seem to be very bronchospastic on today's exam, no significant congestion, patient was placed on IV steroids, breathing treatments. His biggest complaint today is a recurrent pain in his bilateral shoulders and chest discomfort. Review of Systems All systems: negative Constitutional: Denies chills, Denies fever Eyes: denies blurred vision, denies pain Ears, nose, mouth and throat: Denies headache, Denies sore throat Cardiovascular: Denies chest pain, Denies shortness of breath Respiratory: Reports cough with sputum, Reports dyspnea, Denies cough Gastrointestinal: Denies abdominal pain, Denies diarrhea, Denies nausea, Denies vomiting Musculoskeletal: Denies myalgias Integumentary: Denies pruritus, Denies rash Neurological: Denies numbness, Denies weakness Psychiatric: Denies anxiety, Denies depression Endocrine: Denies fatigue, Denies weight change Past Medical History Past Medical History: Coronary Artery Disease (CAD), Heart Failure, COPD, Hyperlipidemia, Hypertension Additional Past Medical History / Comment(s): COPD, obesity, coronary artery disease with previous bypass surgery, cataracts, hiatal hernia, obstructive sleep apnea for which the patient needs to be reevaluated for CPAP therapy. His latest sleep evaluation was done many years back. 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 LIVES WITH HIS OF 55 YEARS IN A SINGLE LEVEL HOME THAT HAS [address]. THEY WINTER IN [place]. NO OUT SIDE SERVICES RECIEVED. HAS A NEBULIZER. NO SERVICE IN PAST. RETIRED FROM [employer]. THEY HAVE 1 PET DOG. Smoking Status: Former smoker Past Alcohol Use History: None Reported Additional Past Alcohol Use History / Comment(s): STARTED SMOKING IN 1952, QUIT 1984 Past Drug Use History: None Reported Additional Drug Use History / Comment(s): QUIT MANY YEARS AGO. - Past Family History Father Family Medical History: Hyperlipidemia, Myocardial Infarction ([place]) Additional Family Medical History / Comment(s): father and brothers(mi's in their 40's and 50's). Mother Family Medical History: CVA/TIA Additional Family Medical History / Comment(s): at age 99 3/4 from [facility] Medications and Allergies Home Medications Medication Instructions Recorded Confirmed Type Aspirin [Adult Low Dose Aspirin EC] 81 mg PO DAILY 02/13/16 10/20/19 History Atenolol [Tenormin] 25 mg PO DAILY 02/13/16 10/20/19 History Ezetimibe [Zetia] 10 mg PO DAILY 02/13/16 10/20/19 History Nitroglycerin Sl Tabs [Nitrostat] 0.4 mg SUBLINGUAL Q5M PRN 06/22/16 10/20/19 History clonazePAM [KlonoPIN] 0.5 mg PO DAILY PRN 06/22/16 10/20/19 History Furosemide [Lasix] 20 mg PO DAILY #30 tab 06/25/16 10/20/19 Rx Albuterol Nebulized [Ventolin 2.5 mg INHALATION Q6H 10/20/19 10/20/19 History Nebulized] Clopidogrel [Plavix] 75 mg PO DAILY 10/20/19 10/20/19 History DULoxetine HCL [Cymbalta] 60 mg PO DAILY 10/20/19 10/20/19 History Escitalopram [Lexapro] 20 mg PO DAILY 10/20/19 10/20/19 History Fluticasone/Umeclidin/Vilanter 1 inhalation INHALATION RT-DAILY 10/20/19 History [Trelegy Ellipta 100-62.5-25] Rosuvastatin [Crestor] 10 mg PO HS 10/20/19 10/20/19 History predniSONE 2.5 mg PO DAILY 10/20/19 10/20/19 History Allergies Allergy/AdvReac Type Severity Reaction Status Date / Time No Known Allergies Allergy Verified 10/20/19 19:07 Physical Exam Vitals: Vital Signs Temp Pulse Pulse Resp BP BP Pulse Ox 10/21/19 12:04 69 10/21/19 11:48 68 10/21/19 11:05 98.2 F 92 18 150/75 93 L 10/21/19 08:13 74 10/21/19 07:58 72 10/21/19 07:35 98.2 F 87 18 159/76 97 10/21/19 02:18 98.0 F 77 17 127/63 98 10/21/19 01:50 110/63 96 10/21/19 01:00 72 17 102/67 95 10/20/19 23:45 98.5 F 68 18 119/64 95 10/20/19 22:09 69 10/20/19 21:55 80 10/20/19 18:36 68 20 143/83 98 10/20/19 18:24 72 10/20/19 18:14 78 10/20/19 17:33 66 18 129/75 96 10/20/19 15:03 18 10/20/19 14:13 97.9 F 72 20 131/74 97 Intake and Output 10/20/19 10/21/19 10/21/19 22:59 06:59 14:59 Intake Total 340 Output Total 500 Balance -160 Intake: Oral 240 Other 100 Output: Urine 500 Other: # Voids 1 Weight 100.5 kg GENERAL EXAM: Alert, very pleasant, 79-year-old white male, on room air, with pulse ox of 93% comfortable in no apparent distress. HEAD: Normocephalic/atraumatic. EYES: Normal reaction of pupils, equal size. Conjunctiva pink, sclera white. NOSE: Clear with pink turbinates. THROAT: No erythema or exudates. NECK: No masses, no JVD, no thyroid enlargement, no adenopathy. CHEST: No chest wall deformity. Symmetrical expansion. LUNGS: Equal air entry with no crackles, wheeze, rhonchi or dullness. CVS: Regular rate and rhythm, normal S1 and S2, no gallops, no murmurs, no rubs ABDOMEN: Soft, nontender. No hepatosplenomegaly, normal bowel sounds, no guarding or rigidity. EXTREMITIES: No clubbing, no edema, no cyanosis, 2+ pulses and upper and lower extremities. MUSCULOSKELETAL: Muscle strength and tone normal. SPINE: No scoliosis or deformity SKIN: No rashes CENTRAL NERVOUS SYSTEM: Alert and oriented -3. No focal deficits, tone is normal in all 4 extremities. PSYCHIATRIC: Alert and oriented -3. Appropriate affect. Intact judgment and insight. Results - Laboratory Findings CBC and BMP: 10/20/19 15:11 10/20/19 15:11 PT/INR, D-dimer PT 9.9 sec (9.0-12.0) 10/20/19 15:11 INR 1.0 (<1.2) 10/20/19 15:11 D-Dimer 0.69 mg/L FEU (<0.60) H 10/20/19 15:11 Abnormal lab findings: Abnormal Labs 10/20/19 10/20/19 10/20/19 15:11 15:11 15:11 Plt Count 141 L D-Dimer 0.69 H Sodium 136 L POC Glucose (mg/dL) 10/21/19 10/21/19 06:32 11:37 Plt Count D-Dimer Sodium POC Glucose (mg/dL) 148 H 184 H - Diagnostic Findings Chest x-ray: report reviewed, image reviewed Assessment and Plan Plan: Assessment: #1. Dyspnea and chest pain, under investigation. 3 sets of negative troponins are negative, proBNP is within normal limits at 56, chest x-ray does not show acute process, shows chronic changes of fairly moderate chronic pulmonary fibrotic changes, no convincing evidence of suspicious new acute pulmonary process #2. Mildly elevated d-dimer, nonspecific, but may need to rule out possibility of thromboembolic event #3. History of chronic obstructive pulmonary disease, not on any oxygen on a regular basis #4. Obstructive sleep apnea, on CPAP therapy and patient has been compliant with it every night #5. Remote history of chronic tobacco dependence, currently in remission #6. Obesity #7. Coronary artery disease with previous coronary artery bypass grafting and previous stent placement #8. Hypertension #9. Hyperlipidemia #10. Anxiety/depression Plan: From pulmonary perspective patient does not seem to be bronchospastic or very congested, not enough to explain his symptoms. D-dimer was mildly elevated, obtain CT angios of the chest and venous Doppler ultrasounds of bilateral legs been completed, report is pending, will continue with breathing treatments, IV steroids for now. Chest x-ray has been reviewed showing some chronic fibrotic changes but no acute pulmonary process. No fever or chills, influenza screen was negative. Patient's previous CT chest from 2016 has been reviewed and patient did have evidence of mild bronchiectasis at the right lung base. From pulmonary perspective if the CT angios chest is negative and patient has been cleared by cardiology, patient could be considered for discharge home. He can follow-up with his treating neon tube pumper from [place], however we also told the patient if he ever wants to transfer his care closer to his home, he is welcome to call the office and make an appointment. I performed a history & physical examination of the patient and discussed their management with my nurse practitioner, Nuris Cash. I reviewed the nurse practitioner's note and agree with the documented findings and plan of care. Lung sounds are positive for diminished breath sounds. The findings and the impression was discussed with the patient. I attest to the documentation by the nurse practitioner. Time with Patient: Greater than 30
--- NOTE | 2019-10-21 14:29 | US ---
EXAMINATION TYPE: US venous doppler duplex LE DATE OF EXAM: 10/21/2019 1:32 PM COMPARISON: NONE CLINICAL HISTORY: Rule out DVT. No hx blood clots. Elevated DDimer. No redness. No swelling. SIDE PERFORMED: Bilateral TECHNIQUE: The lower extremity deep venous system is examined utilizing real time linear array sonog lisa with graded compression, doppler sonography and color-flow sonography. VESSELS IMAGED: External Iliac Vein (EIV) Common Femoral Vein Deep Femoral Vein Greater Saphenous Vein * Femoral Vein Popliteal Vein Small Saphenous Vein * Proximal Calf Veins (* superficial vessels) Grayscale, color doppler, spectral doppler imaging performed of the deep veins of the lower extremiti es. There is normal flow, compressibility, vascular waveforms. Right Leg: Negative for DVT Left Leg: Negative for DVT IMPRESSION: No sonographic evidence of deep venous arthrosis within either the bilateral lower extre mities.
[2019-10-21 14:55] VITALS: PULSE 90
--- NOTE | 2019-10-21 14:56 | CT ---
EXAMINATION TYPE: CT chest angio for PE DATE OF EXAM: 10/21/2019 COMPARISON: None HISTORY: shortness of breath CT DLP: 624 mGycm CONTRAST: CT chest with contrast and 3D reconstruction with MIP imaging is performed with IV Contrast, patient injected with 100 mL of Isovue 370. Contrast-enhanced CT of the chest was performed through the course of the pulmonary arteries with [place] g and mediastinal window settings submitted. 3D reconstruction with MIP imaging was also performed. PULMONARY ARTERIES: The pulmonary arteries and their major tributaries are patent. I do not see martine dence for sizable filling defect to suggest pulmonary embolic process. LUNGS: The lungs are clear and free of infiltrate. No evidence for atelectasis. No pulmonary nodule or mass is detected. No pleural effusion. MEDIASTINUM: Thoracic aorta is of normal caliber,however, evaluation is limited given timing of the contrast bolus. If there is concern for thoracic aortic pathology consider [place]. Correlate clinicall y . The heart is not enlarged. No evidence for mediastinal mass. No mediastinal lymph nodes greater than 1cm. HILAR STRUCTURES: No evidence for mass. No hilar lymph nodes greater than 1 cm. UPPER ABDOMEN: No significant abnormality is seen. IMPRESSION: 1. No evidence for Pulmonary embolism at this time.
[2019-10-21 16:19] VITALS: BP 118/69
[2019-10-21] MEDS ORDERED: FAMOTIDINE 20 MG/2 ML VIAL IV SCH (21:00)
[2019-10-21] MEDS ORDERED: ATORVASTATIN 20 MG TAB PO SCH (21:00)
[2019-10-22] MEDS ORDERED: ASPIRIN 81 MG PO SCH (09:00)
--- NOTE | 2019-10-22 13:01 | ECHOF ---
Referral Reason:sob MEASUREMENTS -------- HEIGHT: 172.7 cm WEIGHT: 99.8 kg BP: RVIDd: 3.6 cm (< 3.3) IVSd: 1.4 cm (0.6 - 1.1) LVIDd: 4.9 cm (3.9 - 5.3) LVPWd: 1.5 cm (0.6 - 1.1) IVSs: 2.0 cm LVIDs: 3.3 cm LVPWs: 1.7 cm LA Diam: 4.2 cm (2.7 - 3.8) LAESV Index (A-L): 29.19 ml/m Ao Diam: 3.1 cm (2.0 - 3.7) AV Cusp: 0.9 cm (1.5 - 2.6) LA Diam: 4.9 cm (2.7 - 3.8) MV E Amador: 0.46 m/s MV DecT: 202 ms MV A Amador: 0.80 m/s MV E/A Ratio: 0.58 AV maxP.99 mmHg AV meanP.27 mmHg RAP: 5.00 mmHg RVSP: 41.00 mmHg FINDINGS -------- Sinus rhythm. This was a techncally difficult study with suboptimal views, , Lumason utilized for enhancement of im ages. The left ventricular size is normal. There is moderate concentric left ventricular hypertrophy. O verall left ventricular systolic function is low-normal with, an EF between 50 - 55 %. The right ventricle is normal in size. The left atrium is moderately dilated. LA is moderately dilated 34-39 ml/m2 The right atrial size is normal. 5.0mg OF Lumason UTLIZED: 2 OR MORE WALL SEGMENTS NOT VISUALIZED. There is moderate aortic stenosis present. Peak/mean gradient across the Aortic Valve is 36.99mmHg / 20.27mmHg. Mild mitral annular calcification present. Mild mitral regurgitation is present. Mild tricuspid regurgitation present. There is mild pulmonary hypertension. The right ventricular systolic pressure, as measured by Doppler, is 41.00mmHg. There is no pulmonic regurgitation present. The aortic root size is normal. There is no pericardial effusion. CONCLUSIONS -------- 1. Sinus rhythm. 2. This was a techncally difficult study with suboptimal views, , Lumason utilized for enhancement of images. 3. The left ventricular size is normal. 4. There is moderate concentric left ventricular hypertrophy. 5. Overall left ventricular systolic function is low-normal with, an EF between 50 - 55 %. 6. The right ventricle is normal in size. 7. The left atrium is moderately dilated. 8. LA is moderately dilated 34-39 ml/m2 9. The right atrial size is normal. 10. 5.0mg OF Lumason UTLIZED: 2 OR MORE WALL SEGMENTS NOT VISUALIZED. 11. There is moderate aortic stenosis present. 12. Peak/mean gradient across the Aortic Valve is 36.99mmHg / 20.27mmHg. 13. Mild mitral annular calcification present. 14. Mild mitral regurgitation is present. 15. Mild tricuspid regurgitation present. 16. There is mild pulmonary hypertension. 17. The right ventricular systolic pressure, as measured by Doppler, is 41.00mmHg. 18. There is no pulmonic regurgitation present. 19. The aortic root size is normal. 20. There is no pericardial effusion. PROGRAM ATTENDANT: Elvia Caraballo RDCS
== END 2019-10-21 16:41 | disposition home or self-care (01) ==
LOC: EC 14:06 → 1SOBS 17:54
PROVIDERS: ADMIT Internal Medicine; ATTEND Internal Medicine
DX: J47.9 Bronchiectasis, uncomplicated (principal); R79.1 Abnormal coagulation profile; I73.9 Peripheral vascular disease, unspecified; J84.10 Pulmonary fibrosis, unspecified; I11.0 Hypertensive heart disease with heart failure; I50.32 Chronic diastolic (congestive) heart failure; Z95.5 Presence of coronary angioplasty implant and graft; E78.5 Hyperlipidemia, unspecified; I25.10 Atherosclerotic heart disease of native coronary artery without angina pectoris; H26.9 Unspecified cataract; K44.9 Diaphragmatic hernia without obstruction or gangrene; G47.33 Obstructive sleep apnea (adult) (pediatric); F41.9 Anxiety disorder, unspecified; F32.9 Major depressive disorder, single episode, unspecified; I49.3 Ventricular premature depolarization; I45.10 Unspecified right bundle-branch block; D69.6 Thrombocytopenia, unspecified; I08.3 Combined rheumatic disorders of mitral, aortic and tricuspid valves; I27.20 Pulmonary hypertension, unspecified; E66.9 Obesity, unspecified; Z68.33 Body mass index [BMI] 33.0-33.9, adult; Z79.82 Long term (current) use of aspirin; Z79.899 Other long term (current) drug therapy; Z79.02 Long term (current) use of antithrombotics/antiplatelets; Z79.51 Long term (current) use of inhaled steroids; Z79.52 Long term (current) use of systemic steroids; Z90.89 Acquired absence of other organs; Z90.49 Acquired absence of other specified parts of digestive tract; Z98.890 Other specified postprocedural states; Z95.1 Presence of aortocoronary bypass graft; Z99.89 Dependence on other enabling machines and devices; Z87.891 Personal history of nicotine dependence; Z95.820 Peripheral vascular angioplasty status with implants and grafts; Z83.438 Family history of other disorder of lipoprotein metabolism and other lipidemia; Z82.3 Family history of stroke; Z82.49 Family history of ischemic heart disease and other diseases of the circulatory system
CPT/HCPCS: 93005 ×2; 96372; 96376 ×2; 96374; 99285; 36415; 94640 ×2; 85379; 83880; 80061; 80053; 83735; 84484 ×2; 85025; 85610; 85730; 87502; 71046; 93970; 71275; G0378 ×2; C8929; J1644; J2930 ×2; Q9950; Q9967; 93306

== ENCOUNTER 2020-04-28 13:28 | Emergency (ER) | payer MEDICARE ==
[2020-04-28 13:43] VITALS: RESP 18
[2020-04-28] MEDS ORDERED: IPRATROPIUM-ALBUTEROL 3 ML NEB INHALATION STA (14:15)
--- NOTE | 2020-04-28 14:18 | ED ---
General Adult HPI - General Chief complaint: Weakness Stated complaint: Weakness Time Seen by Provider: 04/28/20 13:40 Source: patient, RN notes reviewed, old records reviewed Mode of arrival: wheelchair Limitations: physical limitation - History of Present Illness Initial comments: This is a 80-year-old male who presents emergency Department with complaining that he was out for very short walk nothing atypical and he became very weak in the legs and needed to sit down and he also became very short of breath. According to the he has a history of congestive heart failure COPD and pulmonary fibrosis and he has had bypass surgery 30 years ago with a stent placed a few years ago. Patient states currently resting in bed he feels pretty good. Patient states that he had no chest pain or palpitation time. Patient denied any lightheadedness or dizziness. Patient denies any recent fever chills or cough per patient denies any abdominal pain patient denies any nausea vomiting or diarrhea. - Related Data Home Medications Medication Instructions Recorded Confirmed Aspirin [Adult Low Dose Aspirin EC] 81 mg PO DAILY 02/13/16 10/20/19 Ezetimibe [Zetia] 10 mg PO DAILY 02/13/16 10/20/19 atenoloL [Tenormin] 25 mg PO DAILY 02/13/16 10/20/19 Nitroglycerin Sl Tabs [Nitrostat] 0.4 mg SUBLINGUAL Q5M PRN 06/22/16 10/20/19 clonazePAM [KlonoPIN] 0.5 mg PO DAILY PRN 06/22/16 10/20/19 Albuterol Nebulized [Ventolin 2.5 mg INHALATION Q6H 10/20/19 10/20/19 Nebulized] Clopidogrel [Plavix] 75 mg PO DAILY 10/20/19 10/20/19 DULoxetine HCL [Cymbalta] 60 mg PO DAILY 10/20/19 10/20/19 Escitalopram [Lexapro] 20 mg PO DAILY 10/20/19 10/20/19 Fluticasone/Umeclidin/Vilanter 1 inhalation INHALATION RT-DAILY 10/20/19 10/20/19 [Trelegy Ellipta 100-62.5-25] Rosuvastatin [Crestor] 10 mg PO HS 10/20/19 10/20/19 predniSONE 2.5 mg PO DAILY 10/20/19 10/20/19 Previous Rx's Medication Instructions Recorded Furosemide [Lasix] 20 mg PO DAILY #30 tab 06/25/16 Allergies Allergy/AdvReac Type Severity Reaction Status Date / Time No Known Allergies Allergy Verified 04/28/20 13:43 Review of Systems ROS Statement: Those systems with pertinent positive or pertinent negative responses have been documented in the HPI. ROS Other: All systems not noted in ROS Statement are negative. Past Medical History Past Medical History: Coronary Artery Disease (CAD), Heart Failure, COPD, Hyperlipidemia, Hypertension Additional Past Medical History / Comment(s): COPD, obesity, coronary artery disease with previous bypass surgery, cataracts, hiatal hernia, obstructive sleep apnea for which the patient needs to be reevaluated for CPAP therapy. His latest sleep evaluation was done many years back. 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 Mother Family Medical History: CVA/TIA Additional Family Medical History / Comment(s): at age 99 3/4 from a stoke General Exam - General Exam Comments Initial Comments: GENERAL: Patient is well-developed and well-nourished. Patient is nontoxic and well- hydrated and is in mild distress. ENT: Neck is soft and supple. No significant lymphadenopathy is noted. Oropharynx is clear. Moist mucous membranes. Neck has full range of motion without eliciting any pain. EYES: The sclera were anicteric and conjunctiva were pink and moist. Extraocular movements were intact and pupils were equal round and reactive to light. Eyelids were unremarkable. PULMONARY: Patient has dry crackles bilateral bases CARDIOVASCULAR: There is a regular rate and rhythm without any murmurs gallops or rubs. ABDOMEN: Soft and nontender with normal bowel sounds. SKIN: Skin is clear with no lesions or rashes and otherwise unremarkable. NEUROLOGIC: Patient is alert and oriented x3. Cranial nerves II through XII are grossly intact. Motor and sensory are also intact. Normal speech, volume and content. Symmetrical smile. MUSCULOSKELETAL: Normal extremities with adequate strength and full range of motion. No lower extremity swelling or edema. No calf tenderness. LYMPHATICS: No significant lymphadenopathy is noted PSYCHIATRIC: Normal psychiatric evaluation. Limitations: physical limitation Course Vital Signs 04/28/20 04/28/20 04/28/20 13:39 14:50 14:59 Temperature 98.1 F Pulse Rate 77 67 68 Respiratory 18 Rate Blood Pressure 156/79 O2 Sat by Pulse 96 Oximetry 04/28/20 15:30 Temperature Pulse Rate 68 Respiratory 18 Rate Blood Pressure 134/70 O2 Sat by Pulse 95 Oximetry Medical Decision Making - Medical Decision Making EKG shows normal sinus rhythm at 70 bpm NC interval 180 QRSs 152 QT interval 436 QTC is 470. Patient has a right bundle branch block. Patient's EKG shows no ST segment elevation or depression. Patient ambulated throughout the ER without problem and not the setting and room air he was 95% after his walk. Patient did not want to stay in the emergency department or in the hospital so he was discharged home. - Lab Data Result diagrams: 04/28/20 14:45 04/28/20 14:36 Lab Results 04/28/20 04/28/20 04/28/20 Range/Units 14:36 14:36 14:36 WBC (3.8-10.6) k/uL RBC (4.30-5.90) m/uL Hgb (13.0-17.5) gm/dL Hct (39.0-53.0) % MCV (80.0-100.0) fL MCH (25.0-35.0) pg MCHC (31.0-37.0) g/dL RDW (11.5-15.5) % Plt Count (150-450) k/uL Neutrophils % % Lymphocytes % % Monocytes % % Eosinophils % % Basophils % % Neutrophils # (1.3-7.7) k/uL Lymphocytes # (1.0-4.8) k/uL Monocytes # (0-1.0) k/uL Eosinophils # (0-0.7) k/uL Basophils # (0-0.2) k/uL PT 9.9 (9.0-12.0) sec INR 1.0 (<1.2) APTT 24.4 (22.0-30.0) sec Sodium 135 L (137-145) mmol/L Potassium 4.6 (3.5-5.1) mmol/L Chloride 104 (98-107) mmol/L Carbon Dioxide 22 (22-30) mmol/L Anion Gap 9 mmol/L BUN 17 (9-20) mg/dL Creatinine 0.86 (0.66-1.25) mg/dL Est GFR (CKD-EPI)AfAm >90 (>60 ml/min/1.73 sqM) Est GFR (CKD-EPI)NonAf 83 (>60 ml/min/1.73 sqM) Glucose 83 (74-99) mg/dL Plasma Lactic Acid Ronaldo 1.9 (0.7-2.0) mmol/L Calcium 9.3 (8.4-10.2) mg/dL Magnesium 2.4 H (1.6-2.3) mg/dL Total Bilirubin 0.6 (0.2-1.3) mg/dL AST 47 (17-59) U/L ALT 53 H (4-49) U/L Alkaline Phosphatase 57 (38-126) U/L Troponin I (0.000-0.034) ng/mL NT-Pro-B Natriuret Pep pg/mL Total Protein 6.6 (6.3-8.2) g/dL Albumin 4.4 (3.5-5.0) g/dL Urine Color Urine Appearance (Clear) Urine pH (5.0-8.0) Ur Specific [place] (1.001-1.035) Urine Protein (Negative) Urine Glucose (UA) (Negative) Urine Ketones (Negative) Urine Blood (Negative) Urine Nitrite (Negative) Urine Bilirubin (Negative) Urine Urobilinogen (<2.0) mg/dL Ur Leukocyte Esterase (Negative) 04/28/20 04/28/20 04/28/20 Range/Units 14:36 14:45 14:45 WBC 6.4 (3.8-10.6) k/uL RBC 4.67 (4.30-5.90) m/uL Hgb 14.1 (13.0-17.5) gm/dL Hct 43.2 (39.0-53.0) % MCV 92.6 (80.0-100.0) fL MCH 30.2 (25.0-35.0) pg MCHC 32.6 (31.0-37.0) g/dL RDW 13.3 (11.5-15.5) % Plt Count 160 (150-450) k/uL Neutrophils % 70 % Lymphocytes % 16 % Monocytes % 7 % Eosinophils % 3 % Basophils % 1 % Neutrophils # 4.5 (1.3-7.7) k/uL Lymphocytes # 1.0 (1.0-4.8) k/uL Monocytes # 0.5 (0-1.0) k/uL Eosinophils # 0.2 (0-0.7) k/uL Basophils # 0.0 (0-0.2) k/uL PT (9.0-12.0) sec INR (<1.2) APTT (22.0-30.0) sec Sodium (137-145) mmol/L Potassium (3.5-5.1) mmol/L Chloride (98-107) mmol/L Carbon Dioxide (22-30) mmol/L Anion Gap mmol/L BUN (9-20) mg/dL Creatinine (0.66-1.25) mg/dL Est GFR (CKD-EPI)AfAm (>60 ml/min/1.73 sqM) Est GFR (CKD-EPI)NonAf (>60 ml/min/1.73 sqM) Glucose (74-99) mg/dL Plasma Lactic Acid Ronaldo (0.7-2.0) mmol/L Calcium (8.4-10.2) mg/dL Magnesium (1.6-2.3) mg/dL Total Bilirubin (0.2-1.3) mg/dL AST (17-59) U/L ALT (4-49) U/L Alkaline Phosphatase (38-126) U/L Troponin I <0.012 (0.000-0.034) ng/mL NT-Pro-B Natriuret Pep 42 pg/mL Total Protein (6.3-8.2) g/dL Albumin (3.5-5.0) g/dL Urine Color Urine Appearance (Clear) Urine pH (5.0-8.0) Ur Specific [place] (1.001-1.035) Urine Protein (Negative) Urine Glucose (UA) (Negative) Urine Ketones (Negative) Urine Blood (Negative) Urine Nitrite (Negative) Urine Bilirubin (Negative) Urine Urobilinogen (<2.0) mg/dL Ur Leukocyte Esterase (Negative) 04/28/20 Range/Units 15:06 WBC (3.8-10.6) k/uL RBC (4.30-5.90) m/uL Hgb (13.0-17.5) gm/dL Hct (39.0-53.0) % MCV (80.0-100.0) fL MCH (25.0-35.0) pg MCHC (31.0-37.0) g/dL RDW (11.5-15.5) % Plt Count (150-450) k/uL Neutrophils % % Lymphocytes % % Monocytes % % Eosinophils % % Basophils % % Neutrophils # (1.3-7.7) k/uL Lymphocytes # (1.0-4.8) k/uL Monocytes # (0-1.0) k/uL Eosinophils # (0-0.7) k/uL Basophils # (0-0.2) k/uL PT (9.0-12.0) sec INR (<1.2) APTT (22.0-30.0) sec Sodium (137-145) mmol/L Potassium (3.5-5.1) mmol/L Chloride (98-107) mmol/L Carbon Dioxide (22-30) mmol/L Anion Gap mmol/L BUN (9-20) mg/dL Creatinine (0.66-1.25) mg/dL Est GFR (CKD-EPI)AfAm (>60 ml/min/1.73 sqM) Est GFR (CKD-EPI)NonAf (>60 ml/min/1.73 sqM) Glucose (74-99) mg/dL Plasma Lactic Acid Ronaldo (0.7-2.0) mmol/L Calcium (8.4-10.2) mg/dL Magnesium (1.6-2.3) mg/dL Total Bilirubin (0.2-1.3) mg/dL AST (17-59) U/L ALT (4-49) U/L Alkaline Phosphatase (38-126) U/L Troponin I (0.000-0.034) ng/mL NT-Pro-B Natriuret Pep pg/mL Total Protein (6.3-8.2) g/dL Albumin (3.5-5.0) g/dL Urine Color Light Yellow Urine Appearance Clear (Clear) Urine pH 7.5 (5.0-8.0) Ur Specific [place] 1.009 (1.001-1.035) Urine Protein Negative (Negative) Urine Glucose (UA) Negative (Negative) Urine Ketones Negative (Negative) Urine Blood Negative (Negative) Urine Nitrite Negative (Negative) Urine Bilirubin Negative (Negative) Urine Urobilinogen <2.0 (<2.0) mg/dL Ur Leukocyte Esterase Negative (Negative) Disposition Clinical Impression: Generalized weakness, Pulmonary fibrosis Disposition: HOME SELF-CARE Condition: Good Instructions (If sedation given, give patient instructions): Pulmonary Fibrosis (ED) Additional Instructions: Patient should double his prednisone dose for 4 days and go back to his normal dose. Patient should follow-up with pulmonology. Patient should return to emergency department for any worsening symptoms. Is patient prescribed a controlled substance at d/c from ED?: No Referrals: Doretha Rose MD [Primary Care Provider] - 1-2 days Time of Disposition: 16:08
[2020-04-28 14:48] LABS: Basophils % (A) 1 %; Eosinophils # (A) 0.2 k/uL (0-0.7); Eosinophils % (A) 3 %; HCT 43.2 % (39.0-53.0); HGB 14.1 gm/dL (13.0-17.5); Lymphocytes % (A) 16 %; MCH 30.2 pg (25.0-35.0); MCHC 32.6 g/dL (31.0-37.0); MCV 92.6 fL (80.0-100.0); Mean Platelet Volume 10.1; Monocytes # (A) 0.5 k/uL (0-1.0); Monocytes % (A) 7 %; Neutrophils # (A) 4.5 k/uL (1.3-7.7); Neutrophils % (A) 70 %; Platelet Count 160 k/uL (150-450); RBC 4.67 m/uL (4.30-5.90); RDW 13.3 % (11.5-15.5); WBC 6.4 k/uL (3.8-10.6)
[2020-04-28 14:55] LABS: Partial Thromboplastin Time 24.4 sec (22.0-30.0); Prothrombin Time 9.9 sec (9.0-12.0)
--- NOTE | 2020-04-28 14:55 | XR ---
EXAMINATION TYPE: XR chest 2V DATE OF EXAM: 04/28/2020 COMPARISON: 10/20/2019 TECHNIQUE: PA and lateral views submitted. HISTORY: Difficulty breathing FINDINGS: Post-CABG changes with mediastinal clips and sternal wires is redemonstrated. There is chronic parenc hymal changes bilaterally redemonstrated without suspicious new focal airspace opacity, pleural effus ion, or pneumothorax. Stable heart size is stable. Multilevel spurring in the spine redemonstrated. H ypertrophic and degenerative change of the spine. Biapical pleural thickening. IMPRESSION: 1. No acute process. Findings suggest COPD and chronic interstitial lung disease. 2. Stable cardiomegaly.
[2020-04-28 15:00] LABS: ALT 53 U/L (4-49); AST 47 U/L (17-59); African American GFR (CKD) >90 (>60 ml/min/1.73 sqM); Albumin 4.4 g/dL (3.5-5.0); Alkaline Phosphatase 57 U/L (38-126); Anion Gap 9 mmol/L; Blood Urea Nitrogen 17 mg/dL (9-20); Calcium 9.3 mg/dL (8.4-10.2); Carbon Dioxide 22 mmol/L (22-30); Chloride 104 mmol/L (98-107); Glucose 83 mg/dL (74-99); Magnesium 2.4 mg/dL (1.6-2.3); Non-African American GFR(CKD) 83 (>60 ml/min/1.73 sqM); Potassium 4.6 mmol/L (3.5-5.1); Sodium 135 mmol/L (137-145); Total Bilirubin 0.6 mg/dL (0.2-1.3); Total Protein 6.6 g/dL (6.3-8.2)
[2020-04-28 15:22] LABS: Appearance,Urine Clear (Clear); Bilirubin,Urine Negative (Negative); Blood,Urine Negative (Negative); Color,Urine Light Yellow; Glucose,Urine (UA) Negative (Negative); Ketones,Urine Negative (Negative); Leukocyte Esterase,Urine Negative (Negative); Nitrite,Urine Negative (Negative); PH, Urine 7.5 (5.0-8.0); Protein,Urine Negative (Negative); Specific Gravity,Urine 1.009 (1.001-1.035); Urobilinogen,Urine <2.0 mg/dL (<2.0)
[2020-04-28 15:32] VITALS: BP 134/70
[2020-04-28] MEDS ORDERED: methylPREDNISolone SOD SUCCI 125 MG/2 ML VIAL IV STA (15:50)
[2020-04-28 16:36] VITALS: PULSE 78; TEMP 98
== END 2020-04-28 16:35 | disposition home or self-care (01) ==
LOC: EC 13:28
DX: J84.10 Pulmonary fibrosis, unspecified (principal); R53.1 Weakness; I45.10 Unspecified right bundle-branch block; I25.10 Atherosclerotic heart disease of native coronary artery without angina pectoris; I11.0 Hypertensive heart disease with heart failure; I50.9 Heart failure, unspecified; J44.9 Chronic obstructive pulmonary disease, unspecified; G47.33 Obstructive sleep apnea (adult) (pediatric); F41.9 Anxiety disorder, unspecified; F32.9 Major depressive disorder, single episode, unspecified; E66.9 Obesity, unspecified; Z68.35 Body mass index [BMI] 35.0-35.9, adult; Z79.82 Long term (current) use of aspirin; Z79.899 Other long term (current) drug therapy; Z87.891 Personal history of nicotine dependence; Z99.89 Dependence on other enabling machines and devices; Z95.1 Presence of aortocoronary bypass graft; Z95.5 Presence of coronary angioplasty implant and graft
CPT/HCPCS: 36415; 94640; 93005; 83880; 80053; 83605; 83735; 84484; 85025; 85610; 85730; 81003; 71046; 99285; 96374; J2930

== ENCOUNTER 2020-06-22 18:14 | Observation (INO) | payer MEDICARE ==
[2020-06-22] MEDS ORDERED: ACETAMINOPHEN TAB 500 MG TAB PO STA (18:16)
--- NOTE | 2020-06-22 18:34 | ED ---
Fever HPI - General Chief Complaint: Shortness of Breath Stated Complaint: Cough,Fever Time Seen by Provider: 06/22/20 18:15 Source: patient, EMS, RN notes reviewed, old records reviewed Mode of arrival: EMS Limitations: no limitations - History of Present Illness Initial Comments: This is a 80-year-old male with increasing shortness of breath especially exertional. Patient has significant event today where he became very subramanian pale diaphoretic secondary to shortness of breath no chest pain. History of heart disease history of lung disease. No known significant sick contacts low is worried that patient may have coronavirus. Patient has been feverish MD Complaint: fever, malaise, weakness, other (Symptoms for 3 days) -: days(s) (3) Temperature Source: subjective Associated Symptoms: chills, myalgias, nasal congestion, cough, shortness of breath Treatments Prior to Arrival: none - Related Data Home Medications Medication Instructions Recorded Confirmed Ezetimibe [Zetia] 10 mg PO DAILY 02/13/16 06/22/20 atenoloL [Tenormin] 25 mg PO DAILY 02/13/16 06/22/20 Nitroglycerin Sl Tabs [Nitrostat] 0.4 mg SUBLINGUAL Q5M PRN 06/22/16 06/22/20 clonazePAM [KlonoPIN] 0.5 mg PO DAILY PRN 06/22/16 06/22/20 Albuterol Nebulized [Ventolin 2.5 mg INHALATION RT-Q6H PRN 10/20/19 06/22/20 Nebulized] Clopidogrel [Plavix] 75 mg PO HS 10/20/19 06/22/20 Rosuvastatin [Crestor] 10 mg PO HS 10/20/19 06/22/20 predniSONE 2.5 mg PO DAILY 10/20/19 06/22/20 Budesonide [Pulmicort] 0.5 mg INHALATION RT-BID PRN 06/22/20 06/22/20 DULoxetine HCL [Cymbalta] 30 mg PO DAILY 06/22/20 06/22/20 Ipratropium-Albuterol Nebulize 3 ml INHALATION RT-TID PRN 06/22/20 06/22/20 [Duoneb 0.5 mg-3 mg/3 ml Soln] Montelukast Sodium [Singulair] 10 mg PO HS 06/22/20 06/22/20 Previous Rx's Medication Instructions Recorded Furosemide [Lasix] 20 mg PO DAILY #30 tab 06/25/16 Allergies Allergy/AdvReac Type Severity Reaction Status Date / Time No Known Allergies Allergy Verified 06/22/20 18:55 Review of Systems ROS Statement: Those systems with pertinent positive or pertinent negative responses have been documented in the HPI. ROS Other: All systems not noted in ROS Statement are negative. Past Medical History Past Medical History: Coronary Artery Disease (CAD), Heart Failure, COPD, Hyperlipidemia, Hypertension Additional Past Medical History / Comment(s): COPD, obesity, coronary artery disease with previous bypass surgery, cataracts, hiatal hernia, obstructive sleep apnea for which the patient needs to be reevaluated for CPAP therapy. His latest sleep evaluation was done many years back. 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 Mother Family Medical History: CVA/TIA Additional Family Medical History / Comment(s): at age 99 3/4 from a [place] General Exam General appearance: alert, in no apparent distress Head exam: Present: atraumatic, normocephalic, normal inspection Eye exam: Present: normal appearance, PERRL, EOMI. Absent: scleral icterus, conjunctival injection, periorbital swelling ENT exam: Present: normal exam, mucous membranes moist Neck exam: Present: normal inspection. Absent: tenderness, meningismus, lymphadenopathy Respiratory exam: Present: respiratory distress, wheezes, rales, accessory muscle use, decreased breath sounds, prolonged expiratory. Absent: rhonchi, stridor Cardiovascular Exam: Present: regular rate, normal rhythm, normal heart sounds. Absent: systolic murmur, diastolic murmur, rubs, gallop, clicks GI/Abdominal exam: Present: soft, normal bowel sounds. Absent: distended, tenderness, guarding, rebound, rigid Extremities exam: Present: normal inspection, full ROM, normal capillary refill. Absent: tenderness, pedal edema, joint swelling, calf tenderness Back exam: Present: normal inspection Neurological exam: Present: alert, oriented X3, CN II-XII intact Psychiatric exam: Present: normal affect, normal mood Skin exam: Present: warm, dry, intact, normal color. Absent: rash Course Vital Signs 06/22/20 06/22/20 06/22/20 18:15 18:42 19:40 Temperature 98.2 F Pulse Rate 71 73 Respiratory 20 20 20 Rate Blood Pressure 147/74 136/68 O2 Sat by Pulse 95 96 Oximetry 06/22/20 06/22/20 06/22/20 19:57 20:11 20:55 Temperature Pulse Rate 75 76 79 Respiratory 16 16 18 Rate Blood Pressure 136/74 O2 Sat by Pulse 95 Oximetry - Reevaluation(s) Reevaluation #1: 06/22/20 20:57 Medical records reviewed Reevaluation #2: 06/22/20 20:57 Age remains without any significant chest pain Reevaluation #3: 06/22/20 20:57 Patient has cough or congestion, shortness of breath 06/22/20 20:57 Patient informed of findings, questions answered Medical Decision Making - Medical Decision Making 80 male to be admitted for CHF time COPD. Multifactorial respiratory failure and hypoxia. Patient to be admitted for further evaluation management - Lab Data Result diagrams: 06/22/20 18:40 06/22/20 18:40 Lab Results 06/22/20 06/22/20 06/22/20 Range/Units 18:40 18:40 18:40 WBC 7.3 (3.8-10.6) k/uL RBC 4.45 (4.30-5.90) m/uL Hgb 14.2 (13.0-17.5) gm/dL Hct 41.9 (39.0-53.0) % MCV 94.2 (80.0-100.0) fL MCH 31.9 (25.0-35.0) pg MCHC 33.9 (31.0-37.0) g/dL RDW 12.9 (11.5-15.5) % Plt Count 116 L (150-450) k/uL Neutrophils % 64 % Lymphocytes % 18 % Monocytes % 8 % Eosinophils % 6 % Basophils % 1 % Neutrophils # 4.7 (1.3-7.7) k/uL Lymphocytes # 1.3 (1.0-4.8) k/uL Monocytes # 0.6 (0-1.0) k/uL Eosinophils # 0.5 (0-0.7) k/uL Basophils # 0.1 (0-0.2) k/uL PT 9.6 (9.0-12.0) sec INR 0.9 (<1.2) APTT 24.2 (22.0-30.0) sec Sodium 133 L (137-145) mmol/L Potassium 4.3 (3.5-5.1) mmol/L Chloride 103 (98-107) mmol/L Carbon Dioxide 23 (22-30) mmol/L Anion Gap 7 mmol/L BUN 15 (9-20) mg/dL Creatinine 0.82 (0.66-1.25) mg/dL Est GFR (CKD-EPI)AfAm >90 (>60 ml/min/1.73 sqM) Est GFR (CKD-EPI)NonAf 84 (>60 ml/min/1.73 sqM) Glucose 103 H (74-99) mg/dL Plasma Lactic Acid Ronaldo (0.7-2.0) mmol/L Calcium 9.1 (8.4-10.2) mg/dL Magnesium 2.3 (1.6-2.3) mg/dL Total Bilirubin 0.4 (0.2-1.3) mg/dL AST 28 (17-59) U/L ALT 26 (4-49) U/L Alkaline Phosphatase 62 (38-126) U/L Lactate Dehydrogenase 515 (313-618) U/L C-Reactive Protein <5.0 (<10.0) mg/L NT-Pro-B Natriuret Pep pg/mL Total Protein 6.6 (6.3-8.2) g/dL Albumin 4.0 (3.5-5.0) g/dL 06/22/20 06/22/20 Range/Units 18:40 19:50 WBC (3.8-10.6) k/uL RBC (4.30-5.90) m/uL Hgb (13.0-17.5) gm/dL Hct (39.0-53.0) % MCV (80.0-100.0) fL MCH (25.0-35.0) pg MCHC (31.0-37.0) g/dL RDW (11.5-15.5) % Plt Count (150-450) k/uL Neutrophils % % Lymphocytes % % Monocytes % % Eosinophils % % Basophils % % Neutrophils # (1.3-7.7) k/uL Lymphocytes # (1.0-4.8) k/uL Monocytes # (0-1.0) k/uL Eosinophils # (0-0.7) k/uL Basophils # (0-0.2) k/uL PT (9.0-12.0) sec INR (<1.2) APTT (22.0-30.0) sec Sodium (137-145) mmol/L Potassium (3.5-5.1) mmol/L Chloride (98-107) mmol/L Carbon Dioxide (22-30) mmol/L Anion Gap mmol/L BUN (9-20) mg/dL Creatinine (0.66-1.25) mg/dL Est GFR (CKD-EPI)AfAm (>60 ml/min/1.73 sqM) Est GFR (CKD-EPI)NonAf (>60 ml/min/1.73 sqM) Glucose (74-99) mg/dL Plasma Lactic Acid Ronaldo 1.1 (0.7-2.0) mmol/L Calcium (8.4-10.2) mg/dL Magnesium (1.6-2.3) mg/dL Total Bilirubin (0.2-1.3) mg/dL AST (17-59) U/L ALT (4-49) U/L Alkaline Phosphatase (38-126) U/L Lactate Dehydrogenase (313-618) U/L C-Reactive Protein (<10.0) mg/L NT-Pro-B Natriuret Pep 83 pg/mL Total Protein (6.3-8.2) g/dL Albumin (3.5-5.0) g/dL - EKG Data -: EKG Interpreted by Me (EKG is sinus rhythm 72 MN 184 QRS 148 QTc 492) - Radiology Data Radiology results: report reviewed (Chest x-rays negative for acute disease), image reviewed Critical Care Time Critical Care Time: Yes Total Critical Care Time: 31 Disposition Clinical Impression: Pulmonary fibrosis, Acute exacerbation of chronic obstructive pulmonary disease (COPD), Dyspnea, Congestive heart failure Disposition: ADMITTED IP TO THIS HOSP Condition: Fair Is patient prescribed a controlled substance at d/c from ED?: No Referrals: Doretha Rose MD [Primary Care Provider] - 1-2 days
[2020-06-22 18:51] LABS: Basophils # (A) 0.1 k/uL (0-0.2); Basophils % (A) 1 %; Eosinophils # (A) 0.5 k/uL (0-0.7); Eosinophils % (A) 6 %; HCT 41.9 % (39.0-53.0); HGB 14.2 gm/dL (13.0-17.5); Lymphocytes # (A) 1.3 k/uL (1.0-4.8); Lymphocytes % (A) 18 %; MCH 31.9 pg (25.0-35.0); MCHC 33.9 g/dL (31.0-37.0); MCV 94.2 fL (80.0-100.0); Mean Platelet Volume 11.3; Monocytes # (A) 0.6 k/uL (0-1.0); Monocytes % (A) 8 %; Neutrophils # (A) 4.7 k/uL (1.3-7.7); Neutrophils % (A) 64 %; Platelet Count 116 k/uL (150-450); RBC 4.45 m/uL (4.30-5.90); RDW 12.9 % (11.5-15.5); WBC 7.3 k/uL (3.8-10.6)
[2020-06-22 19:02] LABS: INR 0.9 (<1.2); Partial Thromboplastin Time 24.2 sec (22.0-30.0); Prothrombin Time 9.6 sec (9.0-12.0)
[2020-06-22 19:08] LABS: ALT 26 U/L (4-49); AST 28 U/L (17-59); African American GFR (CKD) >90 (>60 ml/min/1.73 sqM); Alkaline Phosphatase 62 U/L (38-126); Anion Gap 7 mmol/L; Blood Urea Nitrogen 15 mg/dL (9-20); C Reactive Protein <5.0 mg/L (<10.0); Calcium 9.1 mg/dL (8.4-10.2); Carbon Dioxide 23 mmol/L (22-30); Chloride 103 mmol/L (98-107); Glucose 103 mg/dL (74-99); LDH 515 U/L (313-618); Magnesium 2.3 mg/dL (1.6-2.3); Non-African American GFR(CKD) 84 (>60 ml/min/1.73 sqM); Potassium 4.3 mmol/L (3.5-5.1); Sodium 133 mmol/L (137-145); Total Bilirubin 0.4 mg/dL (0.2-1.3); Total Protein 6.6 g/dL (6.3-8.2)
[2020-06-22] MEDS ORDERED: SODIUM CHLORIDE 0.9% 500 ML 500 ML IV STA (19:44)
[2020-06-22] MEDS ORDERED: IPRATROPIUM-ALBUTEROL 3 ML NEB INHALATION STA (19:44)
--- NOTE | 2020-06-22 19:44 | XR ---
EXAMINATION TYPE: XR chest 1V portable DATE OF EXAM: 06/22/2020 CLINICAL HISTORY: Cough, fever, short of breath. Suspected Covid 19 pneumonia. TECHNIQUE: Portable upright view of the chest COMPARISON: 04/28/2020 chest radiograph FINDINGS: Sternotomy wires. Cardiomegaly. Low lung volumes accentuates the mediastinal silhouette. C hronic interstitial coarsening. The osseous structures are intact. IMPRESSION: Cardiomegaly and chronic interstitial lung disease redemonstrated.
[2020-06-22] MEDS: SODIUM CHLORIDE 0.9% 1,000 ML IV SCH (20:50)
[2020-06-22] MEDS ORDERED: methylPREDNISolone SOD SUCCI 125 MG/2 ML VIAL IV STA (20:54)
[2020-06-22] MEDS: IPRATROPIUM-ALBUTEROL 3 ML NEB INHALATION SCH (21:35)
[2020-06-22] MEDS ORDERED: IPRATROPIUM-ALBUTEROL 3 ML NEB INHALATION PRN (21:35)
[2020-06-22] MEDS: FUROSEMIDE 10 MG/ML 4 ML VIAL IV SCH (22:03)
[2020-06-23] MEDS ORDERED: IPRATROPIUM-ALBUTEROL 3 ML NEB INHALATION SCH
[2020-06-23] MEDS: methylPREDNISolone SOD SUCCI 125 MG/2 ML VIAL IV SCH ×3 (01:59→11:43)
[2020-06-23] MEDS: ACETAMINOPHEN TAB 325 MG TAB PO PRN ×3 (03:02→20:54)
[2020-06-23] MEDS: SODIUM CHLORIDE 0.9% 1,000 ML IV SCH ×2 (03:03→11:45)
[2020-06-23 03:50] LABS: Ferritin 131.7 ng/mL (22.0-322.0)
[2020-06-23] MEDS: IPRATROPIUM-ALBUTEROL 3 ML NEB INHALATION SCH ×4 (07:47→21:00)
[2020-06-23] MEDS ORDERED: ALBUTEROL NEBULIZED 2.5 MG/3 ML INHALATION SCH (08:00)
[2020-06-23] MEDS: FUROSEMIDE 10 MG/ML 4 ML VIAL IV SCH (09:20)
[2020-06-23] MEDS ORDERED: clonazePAM 0.5 MG TAB PO PRN (09:44)
[2020-06-23] MEDS ORDERED: NITROGLYCERIN SL TABS 0.4 MG TAB SUBLINGUAL PRN (09:44)
--- NOTE | 2020-06-23 11:19 | P.CRDCN ---
History of Present Illness Consult date: 06/23/20 Consult reason: congestive heart failure Chief complaint: Shortness of breath History of present illness: Assessment and plan #1 symptoms of progressively worsening shortness of breath, mild element of diastolic congestive heart failure acute on chronic #2 possible Exacerbation of COPD, pulmonary fibrosis #3 Stable CAD and PAD, patient has history of prior bypass surgery, stent placement, and iliac stenting #4 Hypertension #5 Dyslipidemia #6 Obesity, BMI 33 #7 Former nicotine and cigar dependence #8 history of EtOH use #9 obstructive sleep apnea, on CPAP therapy #10 anxiety and depression Plan We will repeat an echocardiogram with Doppler study, continue the IV Lasix for 24 hours. We will also resume the beta yara, Zetia, Crestor. Monitor the patient's intake and output along with daily weights and daily lytes BUN and creatinine. Further recommendations to follow. DNP note has been reviewed, I agree with a documented findings and plan of care. Patient was seen and examined. Past Medical History Past Medical History: Coronary Artery Disease (CAD), Heart Failure, COPD, Hyperlipidemia, Hypertension Additional Past Medical History / Comment(s): COPD, obesity, coronary artery disease with previous bypass surgery, cataracts, hiatal hernia, obstructive sleep apnea for which the patient needs to be reevaluated for CPAP therapy. 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 quit cigars 4/5 years ago - Past Family History Father Family Medical History: Hyperlipidemia, Myocardial Infarction ([place]) Additional Family Medical History / Comment(s): father and brothers(mi's in their 40's and 50's). Mother Family Medical History: CVA/TIA Additional Family Medical History / Comment(s): at age 99 3/4 from a stoke Medications and Allergies Home Medications Medication Instructions Recorded Confirmed Type Ezetimibe [Zetia] 10 mg PO DAILY 02/13/16 06/22/20 History atenoloL [Tenormin] 25 mg PO DAILY 02/13/16 06/22/20 History Nitroglycerin Sl Tabs [Nitrostat] 0.4 mg SUBLINGUAL Q5M PRN 06/22/16 06/22/20 History clonazePAM [KlonoPIN] 0.5 mg PO DAILY PRN 06/22/16 06/22/20 History Furosemide [Lasix] 20 mg PO DAILY #30 tab 06/25/16 06/22/20 Rx Albuterol Nebulized [Ventolin 2.5 mg INHALATION RT-Q6H PRN 10/20/19 06/22/20 History Nebulized] Clopidogrel [Plavix] 75 mg PO HS 10/20/19 06/22/20 History Rosuvastatin [Crestor] 10 mg PO HS 10/20/19 06/22/20 History predniSONE 2.5 mg PO DAILY 10/20/19 06/22/20 History Budesonide [Pulmicort] 0.5 mg INHALATION RT-BID PRN 06/22/20 06/22/20 History DULoxetine HCL [Cymbalta] 30 mg PO DAILY 06/22/20 06/22/20 History Ipratropium-Albuterol Nebulize 3 ml INHALATION RT-TID PRN 06/22/20 06/22/20 History [Duoneb 0.5 mg-3 mg/3 ml Soln] Montelukast Sodium [Singulair] 10 mg PO HS 06/22/20 06/22/20 History Allergies Allergy/AdvReac Type Severity Reaction Status Date / Time No Known Allergies Allergy Verified 06/22/20 18:55 Physical Exam Vitals: Vital Signs Temp Pulse Pulse Resp BP BP Pulse Ox 06/23/20 09:00 98.4 F 80 14 136/72 94 L 06/23/20 08:03 84 06/23/20 07:54 80 06/23/20 02:45 98.1 F 74 20 133/86 95 06/22/20 22:42 97.7 F 83 20 133/75 97 06/22/20 22:07 98.2 F 79 18 136/74 95 06/22/20 20:55 79 18 136/74 95 06/22/20 20:11 76 16 06/22/20 19:57 75 16 06/22/20 19:40 73 20 136/68 96 06/22/20 18:42 20 06/22/20 18:15 98.2 F 71 20 147/74 95 Intake and Output 06/22/20 06/23/20 06/23/20 22:59 06:59 14:59 Other: Voiding Method Toilet Toilet Urinal Urinal # Voids 2 Weight 106.594 kg PHYSICAL EXAMINATION: GENERAL: 80-year-old gentleman in no acute distress at the time of my examination HEENT: Head is atraumatic, normocephalic. Pupils equal, round. Sclera anicteric. Conjunctiva are clear. Mucous membranes of the mouth are moist. Neck is supple. There is no elevated jugular venous pressure. Right sided carotid bruit is heard. HEART EXAMINATION: Heart S1, S2 systolic murmur is heard . CHEST EXAMINATION: Lungs reveal crackles bilaterally with diminished air entry to the bases bilaterally ABDOMEN: Soft, obese, nontender. Bowel sounds are heard. No organomegaly noted. EXTREMITIES: 2+ peripheral pulses with no evidence of peripheral edema and no calf tenderness noted. NEUROLOGIC patient is awake, alert and oriented 3 . Results 06/22/20 18:40 06/22/20 18:40 Cardiac Enzymes 06/22/20 06/22/20 06/23/20 Range/Units 18:40 21:11 00:48 AST 28 (17-59) U/L Lactate Dehydrogenase 515 (313-618) U/L Troponin I <0.012 <0.012 (0.000-0.034) ng/mL Coagulation 06/22/20 Range/Units 18:40 PT 9.6 (9.0-12.0) sec APTT 24.2 (22.0-30.0) sec CBC 06/22/20 Range/Units 18:40 WBC 7.3 (3.8-10.6) k/uL RBC 4.45 (4.30-5.90) m/uL Hgb 14.2 (13.0-17.5) gm/dL Hct 41.9 (39.0-53.0) % Plt Count 116 L (150-450) k/uL Comprehensive Metabolic Panel 06/22/20 Range/Units 18:40 Sodium 133 L (137-145) mmol/L Potassium 4.3 (3.5-5.1) mmol/L Chloride 103 (98-107) mmol/L Carbon Dioxide 23 (22-30) mmol/L BUN 15 (9-20) mg/dL Creatinine 0.82 (0.66-1.25) mg/dL Glucose 103 H (74-99) mg/dL Calcium 9.1 (8.4-10.2) mg/dL AST 28 (17-59) U/L ALT 26 (4-49) U/L Alkaline Phosphatase 62 (38-126) U/L Total Protein 6.6 (6.3-8.2) g/dL Albumin 4.0 (3.5-5.0) g/dL Current Medications Generic Name Dose Route Start Last Admin Trade Name Freq PRN Reason Stop Dose Admin Acetaminophen 650 mg 06/23/20 02:56 06/23/20 03:02 Acetaminophen Tab 325 Mg Tab PO 650 mg Q4HR PRN Administration Fever and/ or Pain Albuterol/Ipratropium 3 ml 06/22/20 22:00 06/23/20 07:47 Ipratropium-Albuterol 3 Ml Neb INHALATION 3 ml QID ASA Administration Albuterol/Ipratropium 3 ml 06/22/20 21:35 Ipratropium-Albuterol 3 Ml Neb INHALATION RT-Q2H PRN Shortness Of Breath Or Wheezing Atenolol 25 mg 06/24/20 09:00 Atenolol 25 Mg Tab PO DAILY [facility] Atorvastatin Calcium 20 mg 06/23/20 21:00 Atorvastatin 20 Mg Tab PO HS ASA Clonazepam 0.5 mg 06/23/20 09:44 Clonazepam 0.5 Mg Tab PO DAILY PRN Anxiety Clopidogrel Bisulfate 75 mg 06/23/20 21:00 Clopidogrel 75 Mg Tab PO HS [facility] Duloxetine HCl 30 mg 06/24/20 09:00 Duloxetine Hcl 30 Mg Capsule.Dr PO DAILY ASA Ezetimibe 10 mg 06/24/20 09:00 Ezetimibe 10 Mg Tab PO DAILY [facility] Furosemide 40 mg 06/22/20 21:00 06/23/20 09:20 Furosemide 10 Mg/Ml 4 Ml Vial IV 40 mg Q12H ASA Administration Furosemide 20 mg 06/24/20 09:00 Furosemide 20 Mg Tab PO DAILY ASA Sodium Chloride 1,000 mls @ 130 mls/hr 06/22/20 19:45 06/23/20 03:03 Saline 0.9% IV 130 mls/hr .Q7H42M ASA Administration Methylprednisolone Sodium Succinate 60 mg 06/23/20 01:00 06/23/20 05:39 Methylprednisolone Sod Succi 125 Mg/2 Ml Vial IV 60 mg Q6HR ASA Administration Metoprolol Succinate 25 mg 06/24/20 09:00 Metoprolol Succinate (Er) 25 Mg Tab.Er.24h PO DAILY ASA Nitroglycerin 0.4 mg 06/23/20 09:44 Nitroglycerin Sl Tabs 0.4 Mg Tab SUBLINGUAL Q5M PRN Chest Pain Intake and Output 06/22/20 06/23/20 06/23/20 22:59 06:59 14:59 Other: Voiding Method Toilet Toilet Urinal Urinal # Voids 2 Weight 106.594 kg 06/22/20 18:40 06/22/20 18:40 EKG Interpretations (text) EKG shows normal sinus rhythm with right bundle branch block pattern, nonspecifi c ST-T wave changes
[2020-06-23 12:34] VITALS: BMI 35.7
--- NOTE | 2020-06-23 13:36 | ECHOF ---
Referral Reason:chf MEASUREMENTS -------- HEIGHT: 172.7 cm WEIGHT: 106.6 kg BP: 136/72 RVIDd: 3.5 cm (< 3.3) IVSd: 1.4 cm (0.6 - 1.1) LVIDd: 4.5 cm (3.9 - 5.3) LVPWd: 1.5 cm (0.6 - 1.1) IVSs: 2.2 cm LVIDs: 2.6 cm LVPWs: 2.1 cm LA Diam: 4.0 cm (2.7 - 3.8) LAESV Index (A-L): 23.86 ml/m Ao Diam: 3.0 cm (2.0 - 3.7) AV Cusp: 1.2 cm (1.5 - 2.6) MV EXCURSION: 17.007 mm (> 18.000) MV EF SLOPE: 66 mm/s (70 - 150) EPSS: 0.8 cm MV E Amador: 0.60 m/s MV DecT: 224 ms MV A Am[place]: 0.90 m/s MV E/A Ratio: 0.67 AV maxP.09 mmHg AV meanP.78 mmHg RAP: 5.00 mmHg RVSP: 24.78 mmHg FINDINGS -------- Sinus rhythm. This was a technically difficult study with suboptimal views. The left ventricular size is normal. There is moderate concentric left ventricular hypertrophy. O verall left ventricular systolic function is normal with, an EF between 60 - 65 %. The right ventricle is mildly enlarged. Normal LA size by volume 22+/-6 ml/m2. The right atrium is normal in size. Lumason used Interatrial and interventricular septum intact. There is mild to moderate aortic valve sclerosis. There is mild aortic stenosis present. Peak/christ n gradient across the Aortic Valve is 33.09mmHg / 17.78mmHg. Mild mitral annular calcification present. There is trace to mild mitral regurgitation. Mild tricuspid regurgitation present. Right ventricular systolic pressure is normal at < 35 mmHg. Trace/mild (physiologic) pulmonic regurgitation. The aortic root size is normal. IVC Not well visulized. There is no pericardial effusion. CONCLUSIONS -------- 1. This was a technically difficult study with suboptimal views. 2. The left ventricular size is normal. 3. There is moderate concentric left ventricular hypertrophy. 4. Overall left ventricular systolic function is normal with, an EF between 60 - 65 %. 5. The right ventricle is mildly enlarged. 6. Normal LA size by volume 22+/-6 ml/m2. 7. Lumason used 8. There is mild to moderate aortic valve sclerosis. 9. There is mild aortic stenosis present. 10. Peak/mean gradient across the Aortic Valve is 33.09mmHg / 17.78mmHg. 11. Mild mitral annular calcification present. 12. There is trace to mild mitral regurgitation. 13. Mild tricuspid regurgitation present. 14. Trace/mild (physiologic) pulmonic regurgitation. 15. There is no pericardial effusion. OPERATIONS LEAD: Grace Trinidad RDCS
[2020-06-23] MEDS ORDERED: polyethylene glycoL 3350 17 GM POWD.PACK PO PRN (13:39)
--- NOTE | 2020-06-23 15:40 | P.HPIM ---
History of Present Illness 80-year-old a pleasant male came in with compensative shortness of breath exertional, denied orthopnea paroxysmal nocturnal dyspnea patient doesn't have any syncope and BNP is only 500. Patient had normal ejection fraction but does have consulted as ventricular hypertrophy patient does have history of COPD doesn't use any onset and patient is presently requiring 2 L of Lasix and chest x-rays consistent with interstitial lung disease. Patient is being evaluated by cardiology as well as pulmonology. Patient was started on IV Lasix and patient is also getting IV fluids both of which will be discontinued. Patient is mildly hyponatremic there is no evidence of pulmonary edema and congestive heart failure. Patient was started on systemic steroids which will be continued patient is complaining of cough without any significant sputum production Review of Systems REVIEW OF SYSTEMS: CONSTITUTIONAL: No fever, no malaise, no fatigue. HEENT: No recent visual problems or hearing problems. Denied any sore throat. CARDIOVASCULAR: No chest pain, orthopnea, PND, no palpitations, no syncope. PULMONARY: As mentioned in HPI GASTROINTESTINAL: No diarrhea, no nausea, no vomiting, no abdominal pain. NEUROLOGICAL: No headaches, no weakness, no numbness. HEMATOLOGICAL: Denies any bleeding or petechiae. GENITOURINARY: Denies any burning micturition, frequency, or urgency. MUSCULOSKELETAL/RHEUMATOLOGICAL: Denies any joint pain, swelling, or any muscle pain. ENDOCRINE: Denies any polyuria or polydipsia. The rest of the 14-point review of systems is negative. Past Medical History Past Medical History: Coronary Artery Disease (CAD), Heart Failure, COPD, Hyperlipidemia, Hypertension Additional Past Medical History / Comment(s): COPD, obesity, coronary artery disease with previous bypass surgery, cataracts, hiatal hernia, obstructive sleep apnea for which the patient needs to be reevaluated for CPAP therapy. 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 quit cigars 4/5 years ago - Past Family History Father Family Medical History: Hyperlipidemia, Myocardial Infarction ([place]) Additional Family Medical History / Comment(s): father and brothers(mi's in their 40's and 50's). Mother Family Medical History: CVA/TIA Additional Family Medical History / Comment(s): at age 99 3/4 from a stoke Medications and Allergies Home Medications Medication Instructions Recorded Confirmed Type Ezetimibe [Zetia] 10 mg PO DAILY 02/13/16 06/22/20 History atenoloL [Tenormin] 25 mg PO DAILY 02/13/16 06/22/20 History Nitroglycerin Sl Tabs [Nitrostat] 0.4 mg SUBLINGUAL Q5M PRN 06/22/16 06/22/20 History clonazePAM [KlonoPIN] 0.5 mg PO DAILY PRN 06/22/16 06/22/20 History Furosemide [Lasix] 20 mg PO DAILY #30 tab 06/25/16 06/22/20 Rx Albuterol Nebulized [Ventolin 2.5 mg INHALATION RT-Q6H PRN 10/20/19 06/22/20 History Nebulized] Clopidogrel [Plavix] 75 mg PO HS 10/20/19 06/22/20 History Rosuvastatin [Crestor] 10 mg PO HS 10/20/19 06/22/20 History predniSONE 2.5 mg PO DAILY 10/20/19 06/22/20 History Budesonide [Pulmicort] 0.5 mg INHALATION RT-BID PRN 06/22/20 06/22/20 History DULoxetine HCL [Cymbalta] 30 mg PO DAILY 06/22/20 06/22/20 History Ipratropium-Albuterol Nebulize 3 ml INHALATION RT-TID PRN 06/22/20 06/22/20 History [Duoneb 0.5 mg-3 mg/3 ml Soln] Montelukast Sodium [Singulair] 10 mg PO HS 06/22/20 06/22/20 History Allergies Allergy/AdvReac Type Severity Reaction Status Date / Time No Known Allergies Allergy Verified 06/22/20 18:55 Physical Exam Vitals: Vital Signs Temp Pulse Pulse Resp BP BP Pulse Ox 06/23/20 15:04 98.1 F 93 16 157/70 06/23/20 13:11 80 06/23/20 12:56 80 06/23/20 09:00 98.4 F 80 14 136/72 94 L 06/23/20 08:03 84 06/23/20 07:54 80 06/23/20 02:45 98.1 F 74 20 133/86 95 06/22/20 22:42 97.7 F 83 20 133/75 97 06/22/20 22:07 98.2 F 79 18 136/74 95 06/22/20 20:55 79 18 136/74 95 06/22/20 20:11 76 16 06/22/20 19:57 75 16 06/22/20 19:40 73 20 136/68 96 06/22/20 18:42 20 06/22/20 18:15 98.2 F 71 20 147/74 95 Intake and Output 06/23/20 06/23/20 06/23/20 06:59 14:59 22:59 Other: Voiding Method Toilet Toilet Urinal Urinal # Voids 2 Weight 106.594 kg PHYSICAL EXAMINATION: GENERAL: The patient is alert and oriented x3, not in any acute distress. Well developed, well nourished. HEENT: Pupils are round and equally reacting to light. EOMI. No scleral icterus. No conjunctival pallor. Normocephalic, atraumatic. No pharyngeal erythema. No thyromegaly. CARDIOVASCULAR: S1 and S2 present. No murmurs, rubs, or gallops. PULMONARY: Chest is clear to auscultation, no wheezing or crackles. ABDOMEN: Soft, nontender, nondistended, normoactive bowel sounds. No palpable organomegaly. MUSCULOSKELETAL: No joint swelling or deformity. EXTREMITIES: No cyanosis, clubbing, or pedal edema. NEUROLOGICAL: Gross neurological examination did not reveal any focal deficits. SKIN: No rashes. Results CBC & Chem 7: 06/22/20 18:40 06/22/20 18:40 Labs: Abnormal Lab Results - Last 24 Hours (Table) 06/22/20 06/22/20 Range/Units 18:40 18:40 Plt Count 116 L (150-450) k/uL Sodium 133 L (137-145) mmol/L Glucose 103 H (74-99) mg/dL Thrombosis Risk Factor Assmnt - Choose All That Apply Any of the Below Risk Factors Present?: Yes Each Factor Represents 1 point: Obesity (BMI >25) Other Risk Factors: No Other congenital or acquired thrombophilia - If yes, enter type in comment: No Thrombosis Risk Factor Assessment Total Risk Factor Score: 1 Thrombosis Risk Factor Assessment Level: Low Risk Assessment and Plan Plan: Shortness of breath: Most probably secondary to exacerbation of interstitial lung disease patient will be continued on systemic steroids. My suspicion is low for pulmonary edema because of which I'll stop the IV Lasix patient is also getting IV fluids at the that will be discontinued as well patient has mild hyponatremia next and-hyponatremia probably hypotonic hyponatremia clinically. -Hyperlipidemia -coronary artery disease and peripheral arterial disease patient had a 5 with prior bypass surgery and stent placement -Hypertension -hyperlipidemia -Obstructive sleep apnea -Anxiety and depression DVT prophylaxis with Lovenox
[2020-06-23] MEDS: methylPREDNISolone SOD SUCCI 40 MG/ML 1 ML VIAL IV SCH ×2 (17:13→23:21)
[2020-06-23 17:21] LABS: Glucose,Whole Blood 263 mg/dL (75-99)
[2020-06-23] MEDS: INSULIN ASPART (NovoLOG) 100 UNIT/ML VIAL SQ SCH ×2 (17:33→20:55)
[2020-06-23 20:42] LABS: Glucose,Whole Blood 258 mg/dL (75-99)
[2020-06-23] MEDS ORDERED: ATORVASTATIN 20 MG TAB PO SCH (21:00)
[2020-06-23] MEDS ORDERED: CLOPIDOGREL 75 MG TAB PO SCH (21:00)
[2020-06-24] MEDS: methylPREDNISolone SOD SUCCI 40 MG/ML 1 ML VIAL IV SCH ×2 (05:59→12:02)
[2020-06-24 06:00] LABS: Glucose,Whole Blood 244 mg/dL (75-99)
[2020-06-24 07:31] VITALS: BP 136/77; PULSE 89; RESP 16; TEMP 98
[2020-06-24] MEDS: INSULIN ASPART (NovoLOG) 100 UNIT/ML VIAL SQ SCH ×2 (07:31→12:02)
[2020-06-24] MEDS: IPRATROPIUM-ALBUTEROL 3 ML NEB INHALATION SCH ×2 (08:22→11:48)
[2020-06-24] MEDS ORDERED: EZETIMIBE 10 MG TAB PO SCH (09:00)
[2020-06-24] MEDS ORDERED: FUROSEMIDE 20 MG TAB PO SCH (09:00)
[2020-06-24] MEDS ORDERED: METOPROLOL SUCCINATE (ER) 25 MG TAB.ER.24H PO SCH (09:00)
[2020-06-24] MEDS ORDERED: DULoxetine HCL 30 MG CAPSULE.DR PO SCH (09:00)
[2020-06-24] MEDS ORDERED: atenoloL 25 MG TAB PO SCH (09:00)
--- NOTE | 2020-06-24 10:32 | P.CNPUL ---
History of Present Illness Consult date: 06/23/20 Reason for consult: dyspnea History of present illness: This is a 80-year-old male patient with known history of COPD and pulmonary fibrosis has been followed up further [facility] under the care of Dr. Romeor and subsequently switch to Dr. Alford. The patient has also history of coronary artery disease, previous bypass surgery and he has a preserved LV function with a moderate degree of aortic stenosis. He is an ex-smoker. He has obstructive sleep apnea on CPAP therapy. He has also peripheral artery disease, hypertension and hyperlipidemia and his obesity BMI of 35.7. The patient came into the hospital because of some worsening shortness of breath. The patient denied having any fever chills or night sweats. No pleurisy. No hemoptysis. No significant sputum production. No swelling lower extremities. No angina. Cardiac enzymes are negative. The proBNP level is not elevated. The white cell count is at 7.3. The chest x-ray showed cardiomegaly and some chronic interstitial changes in lung bases bilaterally. Review of Systems Constitutional: Denies chills, Denies fever Eyes: denies as per HPI, denies blurred vision, denies bulging eye, denies decreased vision, denies diplopia, denies discharge, denies dry eye, denies irritation, denies itching, denies pain, denies photophobia, denies loss of peripheral vision, denies loss of vision, denies tunnel vision/blind spots Ears: deny: decreased hearing, ear discharge, earache, tinnitus Ears, nose, mouth and throat: Denies headache, Denies sore throat Breasts: absent: as per HPI, gynecomastia Cardiovascular: Reports decreased exercise tolerance, Reports dyspnea on exertion, Reports shortness of breath Respiratory: Reports wheezing Gastrointestinal: Reports as per HPI Genitourinary: Reports as per HPI Musculoskeletal: Reports as per HPI Musculoskeletal: absent: ankle pain, ankle stiffness, ankle swelling Integumentary: Reports as per HPI Neurological: Reports as per HPI Psychiatric: Reports as per HPI Endocrine: Reports as per HPI Hematologic/Lymphatic: Reports as per HPI Allergic/Immunologic: Reports as per HPI Past Medical History Past Medical History: Coronary Artery Disease (CAD), Heart Failure, COPD, Hyperlipidemia, Hypertension Additional Past Medical History / Comment(s): COPD, obesity, coronary artery disease with previous bypass surgery, cataracts, hiatal hernia, obstructive sleep apnea for which the patient needs to be reevaluated for CPAP therapy. His latest sleep evaluation was done many years back. 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 Mother Family Medical History: CVA/TIA Additional Family Medical History / Comment(s): at age 99 3/4 from a stoke Medications and Allergies Home Medications Medication Instructions Recorded Confirmed Type Ezetimibe [Zetia] 10 mg PO DAILY 02/13/16 06/22/20 History atenoloL [Tenormin] 25 mg PO DAILY 02/13/16 06/22/20 History Nitroglycerin Sl Tabs [Nitrostat] 0.4 mg SUBLINGUAL Q5M PRN 06/22/16 06/22/20 History clonazePAM [KlonoPIN] 0.5 mg PO DAILY PRN 06/22/16 06/22/20 History Furosemide [Lasix] 20 mg PO DAILY #30 tab 06/25/16 06/22/20 Rx Albuterol Nebulized [Ventolin 2.5 mg INHALATION RT-Q6H PRN 10/20/19 06/22/20 History Nebulized] Clopidogrel [Plavix] 75 mg PO HS 10/20/19 06/22/20 History Rosuvastatin [Crestor] 10 mg PO HS 10/20/19 06/22/20 History predniSONE 2.5 mg PO DAILY 10/20/19 06/22/20 History Budesonide [Pulmicort] 0.5 mg INHALATION RT-BID PRN 06/22/20 06/22/20 History DULoxetine HCL [Cymbalta] 30 mg PO DAILY 06/22/20 06/22/20 History Ipratropium-Albuterol Nebulize 3 ml INHALATION RT-TID PRN 06/22/20 06/22/20 History [Duoneb 0.5 mg-3 mg/3 ml Soln] Montelukast Sodium [Singulair] 10 mg PO HS 06/22/20 06/22/20 History Allergies Allergy/AdvReac Type Severity Reaction Status Date / Time No Known Allergies Allergy Verified 06/22/20 18:55 Physical Exam GENERAL EXAM: Alert, active, comfortable in no apparent distress. HEAD: Normocephalic. EYES: Normal reaction of pupils, equal size. NOSE: Clear with pink turbinates. THROAT: No erythema or exudates. NECK: No masses, no JVD. CHEST: No chest wall deformity. LUNGS: Equal air entry with bilateral end expiratory wheeze. Diminished. CVS: S1 and S2 normal with no audible murmur, regular rhythm. ABDOMEN: No hepatosplenomegaly, normal bowel sounds, no guarding or rigidity. SPINE: No scoliosis or deformity SKIN: No rashes CENTRAL NERVOUS SYSTEM: No focal deficits, tone is normal in all 4 extremities. EXTREMITIES: There is no peripheral edema. No clubbing, no cyanosis. Peripheral pulses are intact. Results - Laboratory Findings CBC and BMP: 06/22/20 18:40 06/22/20 18:40 ABG WBC 6.4 k/uL (3.8-10.6) 04/28/20 14:45 RBC 4.67 m/uL (4.30-5.90) 04/28/20 14:45 Hgb 14.1 gm/dL (13.0-17.5) 04/28/20 14:45 Hct 43.2 % (39.0-53.0) 04/28/20 14:45 MCV 92.6 fL (80.0-100.0) 04/28/20 14:45 MCH 30.2 pg (25.0-35.0) 04/28/20 14:45 MCHC 32.6 g/dL (31.0-37.0) 04/28/20 14:45 RDW 13.3 % (11.5-15.5) 04/28/20 14:45 Plt Count 160 k/uL (150-450) 04/28/20 14:45 Neutrophils % 70 % 04/28/20 14:45 Lymphocytes % 16 % 04/28/20 14:45 Monocytes % 7 % 04/28/20 14:45 Eosinophils % 3 % 04/28/20 14:45 Basophils % 1 % 04/28/20 14:45 Neutrophils # 4.5 k/uL (1.3-7.7) 04/28/20 14:45 Lymphocytes # 1.0 k/uL (1.0-4.8) 04/28/20 14:45 Monocytes # 0.5 k/uL (0-1.0) 04/28/20 14:45 Eosinophils # 0.2 k/uL (0-0.7) 04/28/20 14:45 Basophils # 0.0 k/uL (0-0.2) 04/28/20 14:45 PT 9.9 sec (9.0-12.0) 04/28/20 14:36 INR 1.0 (<1.2) 04/28/20 14:36 APTT 24.4 sec (22.0-30.0) 04/28/20 14:36 Sodium 135 mmol/L (137-145) L 04/28/20 14:36 Potassium 4.6 mmol/L (3.5-5.1) 04/28/20 14:36 Chloride 104 mmol/L (98-107) 04/28/20 14:36 Carbon Dioxide 22 mmol/L (22-30) 04/28/20 14:36 Anion Gap 9 mmol/L 04/28/20 14:36 BUN 17 mg/dL (9-20) 04/28/20 14:36 Creatinine 0.86 mg/dL (0.66-1.25) 04/28/20 14:36 Est GFR (CKD-EPI)AfAm >90 (>60 ml/min/1.73 sqM) 04/28/20 14:36 Est GFR (CKD-EPI)NonAf 83 (>60 ml/min/1.73 sqM) 04/28/20 14:36 Glucose 83 mg/dL (74-99) 04/28/20 14:36 Plasma Lactic Acid Ronaldo 1.9 mmol/L (0.7-2.0) 04/28/20 14:36 Calcium 9.3 mg/dL (8.4-10.2) 04/28/20 14:36 Magnesium 2.4 mg/dL (1.6-2.3) H 04/28/20 14:36 Total Bilirubin 0.6 mg/dL (0.2-1.3) 04/28/20 14:36 AST 47 U/L (17-59) 04/28/20 14:36 ALT 53 U/L (4-49) H 04/28/20 14:36 Alkaline Phosphatase 57 U/L (38-126) 04/28/20 14:36 Troponin I <0.012 ng/mL (0.000-0.034) 04/28/20 14:36 NT-Pro-B Natriuret Pep 42 pg/mL 04/28/20 14:45 Total Protein 6.6 g/dL (6.3-8.2) 04/28/20 14:36 Albumin 4.4 g/dL (3.5-5.0) 04/28/20 14:36 Urine Color Light Yellow 04/28/20 15:06 Urine Appearance Clear (Clear) 04/28/20 15:06 Urine pH 7.5 (5.0-8.0) 04/28/20 15:06 Ur Specific [place] 1.009 (1.001-1.035) 04/28/20 15:06 Urine Protein Negative (Negative) 04/28/20 15:06 Urine Glucose (UA) Negative (Negative) 04/28/20 15:06 Urine Ketones Negative (Negative) 04/28/20 15:06 Urine Blood Negative (Negative) 04/28/20 15:06 Urine Nitrite Negative (Negative) 04/28/20 15:06 Urine Bilirubin Negative (Negative) 04/28/20 15:06 Urine Urobilinogen <2.0 mg/dL (<2.0) 04/28/20 15:06 Ur Leukocyte Esterase Negative (Negative) 04/28/20 15:06 PT/INR, D-dimer PT 9.9 sec (9.0-12.0) 04/28/20 14:36 INR 1.0 (<1.2) 04/28/20 14:36 Abnormal lab findings: Abnormal Labs 04/28/20 14:36 Sodium 135 L Magnesium 2.4 H ALT 53 H - Diagnostic Findings Chest x-ray: image reviewed Assessment and Plan Plan: 1 acute COPD exacerbation. The patient has COPD and chronic fibrosis with some limited bronchiectasis and lung bases based on a prior CAT scan of the chest. Pneumonia is doubtful. 2 chronic pulmonary fibrosis with some traction bronchiectasis of the lung bases 3 obstructive sleep apnea. 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
--- NOTE | 2020-06-24 11:03 | P.PN ---
Progress Note - Text Progress Note Date: 06/24/20 This is a 80-year-old gentleman who was admitted to the hospital with heart failure exacerbation secondary to diastole dysfunction. He was seen this morning. He is feeling better. No shortness of breath. No lower except his edema. Currently is on Lasix by mouth. From the cardiovascular standpoint of view, the patient can be discharged home and follow-up with his oracle financial application developer at [facility] as an outpatient.
[2020-06-24 11:36] LABS: Glucose,Whole Blood 351 mg/dL (75-99)
--- NOTE | 2020-06-24 12:18 | P.PN ---
Subjective Progress Note Date: 06/24/20 This is a 80-year-old male patient with known history of COPD and pulmonary fibrosis has been followed up further [facility] under the care of Dr. Romero and subsequently switch to Dr. Alford. The patient has also history of coronary artery disease, previous bypass surgery and he has a p reserved LV function with a moderate degree of aortic stenosis. He is an ex- smoker. He has obstructive sleep apnea on CPAP therapy. He has also peripheral artery disease, hypertension and hyperlipidemia and his obesity BMI of 35.7. The patient came into the hospital because of some worsening shortness of breath. The patient denied having any fever chills or night sweats. No pleurisy. No hemoptysis. No significant sputum production. No swelling lower extremities. No angina. Cardiac enzymes are negative. The proBNP level is not elevated. The white cell count is at 7.3. The chest x-ray showed cardiomegaly and some chronic interstitial changes in lung bases bilaterally. On 06/24/2020, the patient is doing well. No significant shortness of breath. No chest pain. Significantly improved since yesterday. Treated for an acute COPD exacerbation with examination bronchodilators and steroids. The patient also has limited pulmonary fibrosis in the lung bases. no altered mentation. No fever. No chills. Coronavirus Covid 19 testing came back negative. Objective - Vital Signs Vital signs: Vital Signs Temp 98.0 F 06/24/20 07:30 Pulse 89 06/24/20 07:30 Resp 16 06/24/20 07:30 BP 136/77 06/24/20 07:30 Pulse Ox 93 L 06/24/20 07:30 Intake & Output 06/23/20 06/24/20 06/24/20 18:59 06:59 18:59 Intake Total 580 236 Balance 580 236 Weight 106.594 kg Intake: Oral 580 236 Other: Voiding Method Toilet Toilet Urinal Urinal # Voids 3 2 - Exam GENERAL EXAM: Alert, active, comfortable in no apparent distress. HEAD: Normocephalic. EYES: Normal reaction of pupils, equal size. NOSE: Clear with pink turbinates. THROAT: No erythema or exudates. NECK: No masses, no JVD. CHEST: No chest wall deformity. LUNGS: Equal air entry with bilateral end expiratory wheeze. Diminished. CVS: S1 and S2 normal with no audible murmur, regular rhythm. ABDOMEN: No hepatosplenomegaly, normal bowel sounds, no guarding or rigidity. SPINE: No scoliosis or deformity SKIN: No rashes CENTRAL NERVOUS SYSTEM: No focal deficits, tone is normal in all 4 extremities. EXTREMITIES: There is no peripheral edema. No clubbing, no cyanosis. Peripheral pulses are intact. - Labs CBC & Chem 7: 06/22/20 18:40 06/22/20 18:40 Labs: Abnormal Lab Results - Last 24 Hours (Table) 06/23/20 06/23/20 06/24/20 Range/Units 17:18 20:39 05:59 POC Glucose (mg/dL) 263 H 258 H 244 H (75-99) mg/dL 06/24/20 Range/Units 11:34 POC Glucose (mg/dL) 351 H (75-99) mg/dL Microbiology - Last 24 Hours (Table) 06/22/20 18:40 Blood Culture - Preliminary Blood No Growth after 24 hours Assessment and Plan Plan: 1 acute COPD exacerbation. The patient has COPD and chronic fibrosis with some limited bronchiectasis and lung bases based on a prior CAT scan of the chest. Pneumonia is doubtful. 2 chronic pulmonary fibrosis with some traction bronchiectasis of the lung bases 3 obstructive sleep apnea. 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
--- NOTE | 2020-06-24 16:17 | P.DS ---
Providers Date of admission: 06/22/20 20:54 Attending physician: Mey Alaniz Consults: 06/22/20 20:54 Consult Physician Routine Consulting Provider: Heydi Bhardwaj Consult Reason/Comments: copd Do you want consulting provider notified?: Yes Consult Physician Routine Consulting Provider: Ziyad Mckeon Consult Reason/Comments: chf Do you want consulting provider notified?: Yes Primary care physician: [facility] Course: Patient came in with the complaints of shortness of breath found to be in exacerbation of interstitial lung disease is clinically doing well is being discharged on prednisone taper patient is clinically doing well off oxygen. PHYSICAL EXAMINATION: GENERAL: The patient is alert and oriented x3, not in any acute distress. Well developed, well nourished. HEENT: Pupils are round and equally reacting to light. EOMI. No scleral icterus. No conjunctival pallor. Normocephalic, atraumatic. No pharyngeal erythema. No thyromegaly. CARDIOVASCULAR: S1 and S2 present. No murmurs, rubs, or gallops. PULMONARY: Chest is clear to auscultation, no wheezing or crackles. ABDOMEN: Soft, nontender, nondistended, normoactive bowel sounds. No palpable organomegaly. MUSCULOSKELETAL: No joint swelling or deformity. EXTREMITIES: No cyanosis, clubbing, or pedal edema. NEUROLOGICAL: Gross neurological examination did not reveal any focal deficits. SKIN: No rashes. Assessment and Plan Plan: Shortness of breath: Most probably secondary to exacerbation of interstitial lung disease -hyponatremia probably hypovolemic hyponatremia Lasix was discontinued -Hyperlipidemia -coronary artery disease and peripheral arterial disease patient had a 5 with prior bypass surgery and stent placement -Hypertension -hyperlipidemia -Obstructive sleep apnea -Anxiety and depression Patient Condition at Discharge: Stable Plan - Discharge Summary New Discharge Prescriptions: New predniSONE 10 mg PO DAILY 12 Days #30 tab Continue atenoloL [Tenormin] 25 mg PO DAILY Ezetimibe [Zetia] 10 mg PO DAILY clonazePAM [KlonoPIN] 0.5 mg PO DAILY PRN PRN Reason: Anxiety Nitroglycerin Sl Tabs [Nitrostat] 0.4 mg SUBLINGUAL Q5M PRN PRN Reason: Chest Pain Furosemide [Lasix] 20 mg PO DAILY #30 tab Albuterol Nebulized [Ventolin Nebulized] 2.5 mg INHALATION RT-Q6H PRN PRN Reason: Shortness Of Breath Clopidogrel [Plavix] 75 mg PO HS Rosuvastatin [Crestor] 10 mg PO HS Budesonide [Pulmicort] 0.5 mg INHALATION RT-BID PRN PRN Reason: Shortness Of Breath Ipratropium-Albuterol Nebulize [Duoneb 0.5 mg-3 mg/3 ml Soln] 3 ml INHALATION RT-TID PRN PRN Reason: Shortness Of Breath DULoxetine HCL [Cymbalta] 30 mg PO DAILY Montelukast Sodium [Singulair] 10 mg PO HS predniSONE 2.5 mg PO DAILY #0 Discharge Medication List Ezetimibe [Zetia] 10 mg PO DAILY 02/13/16 [History] atenoloL [Tenormin] 25 mg PO DAILY 02/13/16 [History] Nitroglycerin Sl Tabs [Nitrostat] 0.4 mg SUBLINGUAL Q5M PRN 06/22/16 [History] clonazePAM [KlonoPIN] 0.5 mg PO DAILY PRN 06/22/16 [History] Furosemide [Lasix] 20 mg PO DAILY #30 tab 06/25/16 [Rx] Albuterol Nebulized [Ventolin Nebulized] 2.5 mg INHALATION RT-Q6H PRN 10/20/19 [History] Clopidogrel [Plavix] 75 mg PO HS 10/20/19 [History] Rosuvastatin [Crestor] 10 mg PO HS 10/20/19 [History] Budesonide [Pulmicort] 0.5 mg INHALATION RT-BID PRN 06/22/20 [History] DULoxetine HCL [Cymbalta] 30 mg PO DAILY 06/22/20 [History] Ipratropium-Albuterol Nebulize [Duoneb 0.5 mg-3 mg/3 ml Soln] 3 ml INHALATION RT-TID PRN 06/22/20 [History] Montelukast Sodium [Singulair] 10 mg PO HS 06/22/20 [History] predniSONE 2.5 mg PO DAILY #0 06/24/20 [Rx] predniSONE 10 mg PO DAILY 12 Days #30 tab 06/24/20 [Rx] Follow up Appointment(s)/Referral(s): Doretha Rose MD [Primary Care Provider] - 3 Days Luis Alfredo Peacock MD [REFERRING] - 1 Week (office will call patient with appointment date and time. ) Heydi Bhardwaj MD [STAFF PHYSICIAN] - 07/07/20 1:45 pm Patient Instructions/Handouts: Heart Failure (DC), COPD (Chronic Obstructive Pulmonary Disease) (DC) Activity/Diet/Wound Care/Special Instructions: activity as tolerated heart healthy diet steroid sent to [facility] pharmacy Discharge Disposition: HOME SELF-CARE
== END 2020-06-24 13:05 | disposition home or self-care (01) ==
LOC: EC 18:14 → 1SOBS 20:54
PROVIDERS: ADMIT Hospitalist; ATTEND Hospitalist
DX: R06.02 Shortness of breath (principal); E87.1 Hypo-osmolality and hyponatremia; E78.5 Hyperlipidemia, unspecified; R61 Generalized hyperhidrosis; I25.10 Atherosclerotic heart disease of native coronary artery without angina pectoris; R50.9 Fever, unspecified; R53.1 Weakness; M79.10 Myalgia, unspecified site; R09.81 Nasal congestion; R05 Cough; R53.81 Other malaise; J44.1 Chronic obstructive pulmonary disease with (acute) exacerbation; I11.0 Hypertensive heart disease with heart failure; I50.33 Acute on chronic diastolic (congestive) heart failure; J84.10 Pulmonary fibrosis, unspecified; I35.0 Nonrheumatic aortic (valve) stenosis; G47.33 Obstructive sleep apnea (adult) (pediatric); F41.9 Anxiety disorder, unspecified; F32.9 Major depressive disorder, single episode, unspecified; J96.91 Respiratory failure, unspecified with hypoxia; E66.9 Obesity, unspecified; Z68.35 Body mass index [BMI] 35.0-35.9, adult; I73.9 Peripheral vascular disease, unspecified; Z20.828 Contact with and (suspected) exposure to other viral communicable diseases; Z79.899 Other long term (current) drug therapy; Z79.51 Long term (current) use of inhaled steroids; Z95.1 Presence of aortocoronary bypass graft; Z90.49 Acquired absence of other specified parts of digestive tract; Z95.5 Presence of coronary angioplasty implant and graft; Z87.891 Personal history of nicotine dependence; Z82.49 Family history of ischemic heart disease and other diseases of the circulatory system; Z82.3 Family history of stroke
CPT/HCPCS: 96361 ×2; 96376 ×2; 96374; 96375; 99291; 36415; 94640 ×4; 94760; 93005; 83880; 80053; 82728; 83605; 83615; 83735; 84484 ×2; 85025; 85610; 85730; 86140; 87040; 71045; G0378 ×3; C8929; U0003; J1940 ×2; J2920 ×2; J2930 ×2; Q9950; 93306

== ENCOUNTER → 2020-09-06 | Outpatient (CLI) | payer MEDICARE ==
--- NOTE | 2020-09-06 13:28 | XR ---
EXAMINATION TYPE: XR chest 2V DATE OF EXAM: 09/06/2020 COMPARISON: Prior chest x-ray 06/22/2020, CT 10/21/2019 HISTORY: J 84.10, cough TECHNIQUE: Frontal and lateral views of the chest are obtained. FINDINGS: Patient is post median sternotomy. Cardiac mediastinal silhouette shows a similar appearan ce, patient is rotated toward the right. Aorta is dense. Question some minimal patchy density at the right costophrenic angle level, left lung base. No evident pneumothorax or pleural effusion. Some min imal strand-like densities present at the lung bases. Thoracic spondylosis is present. There are sal nary artery calcifications. IMPRESSION: There may be some basilar atelectasis or scarring, correlate to exclude pneumonia, follo w-up as indicated. Patient with known basilar bronchiectasis.
== END | disposition home or self-care (01) ==
LOC: RADXRMAIN 11:55
PROVIDERS: ATTEND Internal Medicine Cardiovascular Disease
DX: J47.9 Bronchiectasis, uncomplicated (principal)
CPT/HCPCS: 71046

== ENCOUNTER 2020-09-09 14:17 | Observation (INO) | payer MEDICARE ==
--- NOTE | 2020-09-09 14:35 | ED ---
Chest Pain HPI - General Stated Complaint: Chest Pain/FER Time Seen by Provider: 09/09/20 14:17 Source: patient, RN notes reviewed - History of Present Illness Initial Comments: This is a 80-year-old male with a history of quadruple bypass many years ago and cardiac stent more recently restarted chest pain earlier today and 11 AM the pain was 5/10 after 2 nitroglycerin down to 4/10 currently it's 0. He also received 4 baby aspirins patient states she has a history of COPD no wheezes low back no recent fevers chills nausea vomiting sweats. Patient does state he's been taking a lot of Tums recently. MD Complaint: chest pain - Related Data Home Medications Medication Instructions Recorded Confirmed Ezetimibe [Zetia] 10 mg PO DAILY 02/13/16 09/09/20 atenoloL [Tenormin] 25 mg PO DAILY 02/13/16 09/09/20 Nitroglycerin Sl Tabs [Nitrostat] 0.4 mg SUBLINGUAL Q5M PRN 06/22/16 09/09/20 clonazePAM [KlonoPIN] 0.5 mg PO DAILY PRN 06/22/16 09/09/20 Albuterol Nebulized [Ventolin 2.5 mg INHALATION RT-Q6H PRN 10/20/19 09/09/20 Nebulized] Clopidogrel [Plavix] 75 mg PO HS 10/20/19 09/09/20 Rosuvastatin [Crestor] 10 mg PO HS 10/20/19 09/09/20 Budesonide [Pulmicort] 0.5 mg INHALATION RT-BID PRN 06/22/20 09/09/20 DULoxetine HCL [Cymbalta] 30 mg PO DAILY 06/22/20 09/09/20 Ipratropium-Albuterol Nebulize 3 ml INHALATION RT-TID PRN 06/22/20 09/09/20 [Duoneb 0.5 mg-3 mg/3 ml Soln] Montelukast Sodium [Singulair] 10 mg PO HS 06/22/20 09/09/20 Previous Rx's Medication Instructions Recorded Furosemide [Lasix] 20 mg PO DAILY #30 tab 06/25/16 predniSONE 2.5 mg PO DAILY #0 06/24/20 Allergies Allergy/AdvReac Type Severity Reaction Status Date / Time No Known Allergies Allergy Verified 09/09/20 14:46 Review of Systems ROS Statement: Those systems with pertinent positive or pertinent negative responses have been documented in the HPI. ROS Other: All systems not noted in ROS Statement are negative. Past Medical History Past Medical History: Coronary Artery Disease (CAD), Heart Failure, COPD, Hyperlipidemia, Hypertension Additional Past Medical History / Comment(s): COPD, obesity, coronary artery disease with previous bypass surgery, cataracts, hiatal hernia, obstructive sleep apnea for which the patient needs to be reevaluated for CPAP therapy. His latest sleep evaluation was done many years back. 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 Mother Family Medical History: CVA/TIA Additional Family Medical History / Comment(s): at age 99 3/4 from a stoke General Exam - General Exam Comments Initial Comments: This a well-developed well-nourished awake alert oriented 3 male General appearance: alert, in no apparent distress Head exam: Present: atraumatic, normocephalic, normal inspection Eye exam: Present: normal appearance, PERRL, EOMI. Absent: scleral icterus, conjunctival injection, periorbital swelling ENT exam: Present: normal exam, mucous membranes moist Neck exam: Present: normal inspection, full ROM, other. Absent: tenderness, meningismus, lymphadenopathy Respiratory exam: Present: decreased breath sounds. Absent: respiratory distress, wheezes, rales, rhonchi, stridor Cardiovascular Exam: Present: regular rate, normal rhythm, normal heart sounds. Absent: systolic murmur, diastolic murmur, rubs, gallop, clicks GI/Abdominal exam: Present: soft, tenderness (Mild epigastric discomfort palpation no guarding rebound masses or bruits), normal bowel sounds. Absent: distended, guarding, rebound, rigid Extremities exam: Present: normal inspection, full ROM, normal capillary refill. Absent: tenderness, pedal edema, joint swelling, calf tenderness Back exam: Present: normal inspection Neurological exam: Present: alert, oriented X3, CN II-XII intact Psychiatric exam: Present: normal affect, normal mood Skin exam: Present: warm, dry, intact, normal color. Absent: rash Course Vital Signs 09/09/20 09/09/20 09/09/20 14:25 15:13 15:58 Temperature 98.0 F Pulse Rate 91 75 78 Respiratory 18 18 18 Rate Blood Pressure 128/77 127/73 118/59 O2 Sat by Pulse 93 L 97 95 Oximetry Chest Pain MDM - MDM Imaging reviewed x-ray shows no acute findings chronic changes CAT scan shows no evidence of PE evidence of groundglass appearance the patient has no further chest pain the presentation was consistent with unstable angina patient be admitted the patient will be admitted the case was discussed with covering EMS Critical Care Time Critical Care Time: Yes Total Critical Care Time: 31 Disposition Clinical Impression: Chest pain, Unstable angina pectoris Disposition: ADMITTED IP TO THIS HOSP Condition: Fair Referrals: Doretha Rose MD [Primary Care Provider] - 1-2 days
[2020-09-09 15:29] LABS: Basophils # (A) 0.1 k/uL (0-0.2); Basophils % (A) 1 %; Eosinophils # (A) 0.4 k/uL (0-0.7); Eosinophils % (A) 4 %; HCT 42.7 % (39.0-53.0); HGB 14.6 gm/dL (13.0-17.5); Lymphocytes # (A) 1.5 k/uL (1.0-4.8); Lymphocytes % (A) 19 %; MCHC 34.2 g/dL (31.0-37.0); MCV 90.7 fL (80.0-100.0); Mean Platelet Volume 9.9; Monocytes # (A) 0.6 k/uL (0-1.0); Monocytes % (A) 7 %; Neutrophils # (A) 5.3 k/uL (1.3-7.7); Neutrophils % (A) 66 %; Platelet Count 146 k/uL (150-450); RBC 4.71 m/uL (4.30-5.90); WBC 8.1 k/uL (3.8-10.6)
[2020-09-09 15:33] LABS: ALT 53 U/L (4-49); AST 38 U/L (17-59); African American GFR (CKD) >90 (>60 ml/min/1.73 sqM); Albumin 4.2 g/dL (3.5-5.0); Alkaline Phosphatase 79 U/L (38-126); Amylase 62 U/L (30-110); Anion Gap 6 mmol/L; Blood Urea Nitrogen 18 mg/dL (9-20); Calcium 9.7 mg/dL (8.4-10.2); Carbon Dioxide 25 mmol/L (22-30); Chloride 104 mmol/L (98-107); Creatine Kinase 186 U/L (55-170); Glucose 120 mg/dL (74-99); Lipase 153 U/L (23-300); Magnesium 2.1 mg/dL (1.6-2.3); Non-African American GFR(CKD) 85 (>60 ml/min/1.73 sqM); Potassium 4.3 mmol/L (3.5-5.1); Sodium 135 mmol/L (137-145); Total Bilirubin 0.4 mg/dL (0.2-1.3); Total Protein 6.9 g/dL (6.3-8.2)
--- NOTE | 2020-09-09 15:33 | XR ---
EXAM: XR Chest, 2 Views CLINICAL HISTORY: ITS.REASON XR Reason: Chest Pain TECHNIQUE: Frontal and lateral views of the chest. COMPARISON: Chest radiograph on 09/06/2020 FINDINGS: Hardware: None. Lungs/pleura: Similar mild bibasilar opacities. No pleural effusion or pneumothorax. Heart/mediastinum: Stable mild enlargement of the cardiac silhouette. Median sternotomy changes. Soft tissues: Unremarkable. Bones: No acute fracture. Degenerative changes of the acromioclavicular joints and spine. Upper abdomen: Normal. IMPRESSION: Similar mild bibasilar opacities may represent atelectasis or scarring versus infectious/inflammatory process.
[2020-09-09 15:40] LABS: INR 0.9 (<1.2); Partial Thromboplastin Time 24.1 sec (22.0-30.0); Prothrombin Time 9.8 sec (9.0-12.0)
--- NOTE | 2020-09-09 16:45 | CT ---
EXAM: CT Angiography Chest With Intravenous Contrast CLINICAL HISTORY: ITS.REASON CT Reason: He suspected, intermediate probability, positive d TECHNIQUE: Axial computed tomographic angiography images of the chest with intravenous contrast. CTDI is 17.3 mGy and DLP is 572.8 mGy-cm. This CT exam was performed using one or more of the following dose reduction techniques: automated exposure control, adjustment of the mA and/or kV according to patient size, and/or use of iterative reconstruction technique. MIP reconstructed images were created and reviewed. COMPARISON: Chest radiograph on 09/09/2020 FINDINGS: Pulmonary arteries: No pulmonary embolus identified. Aorta: No aortic aneurysm or dissection. Atherosclerotic changes of the aorta. Lungs: Patchy ground-glass opacities and densities, most prominently in the lower lungs. This is concerning for an infectious/inflammatory process. Emphysematous changes. Bronchiectasis in the lower lobes. Pleural space: Unremarkable. No significant effusion. No pneumothorax. Heart: Median sternotomy and CABG changes. No significant pericardial effusion. No evidence of RV dysfunction. Bones/joints: Degenerative changes of the spine. No acute fracture. No dislocation. Soft tissues: Unremarkable. Lymph nodes: Unremarkable. No enlarged lymph nodes. Liver: Hepatic steatosis. Spleen: Small splenule. IMPRESSION: 1. No pulmonary embolus identified. 2. No aortic aneurysm or dissection. Atherosclerotic changes of the aorta. 3. Patchy ground-glass opacities and densities, most prominently in the lower lungs. This is concerning for an infectious/inflammatory process. 4. Emphysematous changes. 5. Bronchiectasis in the lower lobes.
[2020-09-09] MEDS ORDERED: HEPARIN SODIUM,PORCINE 5,000 UNIT/ML 1 ML VIAL IV ONE (16:54)
[2020-09-09] MEDS ORDERED: NITROGLYCERIN SL TABS 0.4 MG TAB SUBLINGUAL PRN (16:54)
[2020-09-09] MEDS ORDERED: ALBUTEROL NEBULIZED 2.5 MG/3 ML INHALATION PRN (16:56)
[2020-09-09] MEDS: SODIUM CHLORIDE 0.9% 1,000 ML IV SCH (17:26)
[2020-09-09] MEDS ORDERED: HEPARIN SOD,PORK IN 0.45% NACL 25,000 UNIT in 0.45% NACL 1 250ML.BAG IV SCH (18:00)
[2020-09-09] MEDS: ATORVASTATIN 20 MG TAB PO SCH (20:14)
[2020-09-09] MEDS: CLOPIDOGREL 75 MG TAB PO SCH (20:14)
[2020-09-09] MEDS: MONTELUKAST 10 MG TAB PO SCH (20:14)
[2020-09-09] MEDS: clonazePAM 0.5 MG TAB PO PRN (21:59)
[2020-09-10] MEDS ORDERED: HEPARIN SODIUM,PORCINE 5,000 UNIT/ML 1 ML VIAL IV PRN (05:30)
[2020-09-10 05:36] LABS: Cholesterol 177 mg/dL (<200); HDL Cholesterol 44 mg/dL (40-60); LDL Cholesterol,Calculated 94 mg/dL (0-99); Triglycerides 193 mg/dL (<150)
[2020-09-10] MEDS: atenoloL 25 MG TAB PO SCH (08:40)
[2020-09-10] MEDS: EZETIMIBE 10 MG TAB PO SCH (08:40)
[2020-09-10] MEDS: FUROSEMIDE 20 MG TAB PO SCH (08:40)
[2020-09-10] MEDS: DULoxetine HCL 30 MG CAPSULE.DR PO SCH (08:41)
[2020-09-10] MEDS: predniSONE 2.5 MG TAB PO SCH (08:41)
[2020-09-10] MEDS ORDERED: ASPIRIN 325 MG TAB PO SCH (09:00)
[2020-09-10] MEDS: BUDESONIDE 0.5 MG/2 ML NEBU INHALATION PRN ×2 (09:08→19:58)
[2020-09-10] MEDS: IPRATROPIUM-ALBUTEROL 3 ML NEB INHALATION PRN ×3 (09:08→19:58)
--- NOTE | 2020-09-10 10:45 | P.HPIM ---
History of Present Illness This is a pleasant 80 years old male with past medical history of COPD and he follows up with production designer from outside our health system (patient is not sure of the name) and he is on a prednisone. Also history of coronary artery disease status post CABG and cardiac stent and he follows up with Dr. Luis Alfredo Dubose. Also is patient of Dr. Andino. Patient presents because he did not feel well yesterday, minimally he was little bit confused with little difficulty breathing. Also he has been complaining of from indigestion and heartburn on and off for about one month, which is the main reason he was admitted to the hospital as chest pain to rule out cardiac causes given his extensive history. I discussed the case with Dr. Wong, patient cleared from their perspective for him to be discharged on aspirin 81 mg daily and follow-up with his unemployment inspector in 1 week to decide about the aspirin and patient informed and he agrees Patient is currently is breathing quietly, no chest pain. He still have coughing with yellow phlegm. No abdominal pain or nausea vomiting. No dysuria. He states that he checked his temperature at home and was 100.0F, his been afebrile here in the hospital and vitals are stable and he is saturating 93% on room air. Labs were reviewed and CBC and BMP were unremarkable except for sodium 135, ALT slightly elevated at 53 and serial troponins are negative. D- dimer is slightly elevated at 0.67, however her 50s adjusted for age it will be within the reference range. He had CTA of the chest showing no pulmonary embolism or aortic aneurysm. However showed patchy ground glass opacity in the steep most prominently in the lower lung and bronchiectasis in the lower lobes, emphysematous changes Review of Systems CONSTITUTIONAL: No fever, no malaise, no fatigue. HEENT: No recent visual problems or hearing problems. Denied any sore throat. CARDIOVASCULAR: No orthopnea, PND, no palpitations, no syncope. PULMONARY: No shortness of breath, no cough, no hemoptysis. GASTROINTESTINAL: No diarrhea, no nausea, no vomiting, no abdominal pain. Normoactive bowel sounds. NEUROLOGICAL: No headaches, no weakness, no numbness. HEMATOLOGICAL: Denies any bleeding or petechiae. GENITOURINARY: Denies any burning micturition, frequency, or urgency. MUSCULOSKELETAL/RHEUMATOLOGICAL: Denies any joint pain, swelling, or any muscle pain. ENDOCRINE: Denies any polyuria or polydipsia. Past Medical History Past Medical History: Coronary Artery Disease (CAD), Heart Failure, COPD, Hyperlipidemia, Hypertension Additional Past Medical History / Comment(s): COPD, obesity, coronary artery disease with previous bypass surgery, cataracts, hiatal hernia, obstructive sleep apnea for which the patient needs to be reevaluated for CPAP therapy. His latest sleep evaluation was done many years back. 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 LIVES WITH HIS OF 55 YEARS IN A SINGLE LEVEL HOME THAT HAS [address]. 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 NO OUT SIDE SERVICES RECIEVED. HAS A NEBULIZER. NO SERVICE IN PAST. RETIRED FROM [employer]. THEY HAVE 1 PET DOG. Smoking Status: Former smoker Past Alcohol Use History: None Reported Additional Past Alcohol Use History / Comment(s): STARTED SMOKING IN 1952, QUIT 1984 Past Drug Use History: None Reported Additional Drug Use History / Comment(s): QUIT MANY YEARS AGO. quit cigars 4/5 years ago - Past Family History Father Family Medical History: Hyperlipidemia, Myocardial Infarction ([place]) Additional Family Medical History / Comment(s): father and brothers(mi's in their 40's and 50's). Mother Family Medical History: CVA/TIA Additional Family Medical History / Comment(s): at age 99 3/4 from a stoke Medications and Allergies Home Medications Medication Instructions Recorded Confirmed Type Ezetimibe [Zetia] 10 mg PO DAILY 02/13/16 09/09/20 History atenoloL [Tenormin] 25 mg PO DAILY 02/13/16 09/09/20 History Nitroglycerin Sl Tabs [Nitrostat] 0.4 mg SUBLINGUAL Q5M PRN 06/22/16 09/09/20 History clonazePAM [KlonoPIN] 0.5 mg PO DAILY PRN 06/22/16 09/09/20 History Furosemide [Lasix] 20 mg PO DAILY #30 tab 06/25/16 09/09/20 Rx Albuterol Nebulized [Ventolin 2.5 mg INHALATION RT-Q6H PRN 10/20/19 09/09/20 History Nebulized] Clopidogrel [Plavix] 75 mg PO HS 10/20/19 09/09/20 History Rosuvastatin [Crestor] 10 mg PO HS 10/20/19 09/09/20 History Budesonide [Pulmicort] 0.5 mg INHALATION RT-BID PRN 06/22/20 09/09/20 History DULoxetine HCL [Cymbalta] 30 mg PO DAILY 06/22/20 09/09/20 History Ipratropium-Albuterol Nebulize 3 ml INHALATION RT-TID PRN 06/22/20 09/09/20 History [Duoneb 0.5 mg-3 mg/3 ml Soln] Montelukast Sodium [Singulair] 10 mg PO HS 06/22/20 09/09/20 History predniSONE 2.5 mg PO DAILY #0 06/24/20 09/09/20 Rx Allergies Allergy/AdvReac Type Severity Reaction Status Date / Time No Known Allergies Allergy Verified 09/09/20 14:46 Physical Exam Vitals: Vital Signs Temp Pulse Pulse Resp BP BP Pulse Ox 09/10/20 09:27 72 09/10/20 09:08 72 09/10/20 07:43 98.1 F 83 16 145/72 93 L 09/10/20 02:33 77 09/10/20 02:31 98.0 F 77 144/77 94 L 09/09/20 19:20 98.1 F 73 121/70 95 09/09/20 18:00 98 F 83 16 111/80 98 09/09/20 17:13 98.2 F 73 18 136/82 98 09/09/20 15:58 78 18 118/59 95 09/09/20 15:13 98.0 F 75 18 127/73 97 09/09/20 14:25 91 18 128/77 93 L Intake and Output 09/09/20 09/10/2020 22:59 06:59 14:59 Intake Total 109.467 20 Balance 109.467 20 Intake: Intake, IV Titration 109.467 20 Amount Heparin Sod,Pork in 0.45% 109.467 NaCl 25,000 unit In 0.45 % NaCl 1 250ml.bag @ 9.5 UNITS/KG/HR 9.997 mls/hr IV .Q24H ASA Rx#: [id number] Sodium Chloride 0.9% 1, 20 000 ml @ 20 mls/hr IV . Q24H ASA Rx#:[id number] Oral 0 Other: Voiding Method Toilet Toilet Toilet # Voids 1 Weight 105.233 kg GENERAL: The patient is alert and oriented x3, not in any acute distress. Well developed, well nourished. HEENT: Pupils are round and equally reacting to light. EOMI. No scleral icterus. No conjunctival pallor. Normocephalic, atraumatic. No pharyngeal erythema. No thyromegaly. CARDIOVASCULAR: S1 and S2 present. No murmurs, rubs, or gallops. PULMONARY: Chest is clear to auscultation, no wheezing or crackles. ABDOMEN: Soft, nontender, nondistended, normoactive bowel sounds. No palpable organomegaly. MUSCULOSKELETAL: No joint swelling or deformity. EXTREMITIES: No cyanosis, clubbing, or pedal edema. NEUROLOGICAL: Gross neurological examination did not reveal any focal deficits. SKIN: No rashes. No petechiae Results CBC & Chem 7: 09/09/20 14:50 09/09/20 14:50 Labs: Abnormal Lab Results - Last 24 Hours (Table) 09/09/20 09/09/20 09/09/20 Range/Units 14:50 14:50 14:50 Plt Count 146 L (150-450) k/uL APTT (22.0-30.0) sec D-Dimer 0.67 H (<0.60) mg/L FEU Sodium 135 L (137-145) mmol/L Glucose 120 H (74-99) mg/dL ALT 53 H (4-49) U/L Creatine Kinase 186 H (55-170) U/L Triglycerides (<150) mg/dL 09/10/20 09/10/20 Range/Units 04:46 04:46 Plt Count (150-450) k/uL APTT 34.8 H (22.0-30.0) sec D-Dimer (<0.60) mg/L FEU Sodium (137-145) mmol/L Glucose (74-99) mg/dL ALT (4-49) U/L Creatine Kinase (55-170) U/L Triglycerides 193 H (<150) mg/dL Thrombosis Risk Factor Assmnt - Choose All That Apply Any of the Below Risk Factors Present?: Yes Each Factor Represents 1 point: Abnormal pulmonary function (COPD), Heart failure (<1month) Each Risk Factor Represents 3 Points: Age 75 years or older Thrombosis Risk Factor Assessment Total Risk Factor Score: 5 Thrombosis Risk Factor Assessment Level: High Risk Assessment and Plan Assessment: -Transient periods of dyspnea which is improved now, he has abnormal CTA showing bilateral groundglass opacity and lower lobe bronchiectasis, he is saturating well on room air. We got to consult pulmonary services -Chest pain felt like heartburn. Cardiology already cleared the patient for discharge and to take aspirin and follow-up with PCP and unemployment inspector in 1 week, patient informed and agrees. Also patient is an chronic steroids and this might cause gastric irritation silicone start the patient on Protonix. Probability of PE is very low, CTA of the chest is negative. D-dimer is adjusted for age it will be within the reference range so no need for Doppler of the lower extremity especially patient is asymptomatic with no leg pain or others. 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 No oxygen at home. Continue with current management -Hyperlipidemia -Hypertension -Obesity -Anxiety and depression, not an active issue DVT prophylaxis: Subcutaneous heparin GI Prophylaxis: Ppi
[2020-09-10] MEDS: dexAMETHasone 2 MG TAB PO SCH (10:56)
[2020-09-10] MEDS: AZITHROMYCIN 500 MG TAB PO SCH (10:56)
[2020-09-10] MEDS ORDERED: MELATONIN 3 MG TABLET PO PRN (11:38)
[2020-09-10] MEDS: PANTOPRAZOLE 40 MG/10 ML VIAL IVP SCH ×2 (11:44→20:03)
--- NOTE | 2020-09-10 11:47 | P.CRDCN ---
History of Present Illness History of present illness: HISTORY OF PRESENTING ILLNESS This is a pleasant 80-year-old male past medical history significant for coronary artery disease status post CABG approximately 30 years ago as well as stenting approximate 3 years ago, PAD with prior iliac stenting, chronic diastolic heart failure, COPD, pulmonary fibrosis, hypertension, hyperlipidemia, obesity, prior alcohol use, obstructive sleep apnea. 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 He admits he has been doing fairly well since his stenting 3 years ago. With his prior bypass and stenting he complained of substernal chest burning sensation which have been associated with exertion. Unfortunately over the past 4-5 days he has been noting epigastric burning sensation. He believes this started after he had 2 cheeseburgers from [employer] and has not really felt well since. He denies any diarrhea, hematochezia or melena. Admits to mild nausea however no real change with eating food. He has been taking a lot of TUMS which has been helping with his discomfort. His however finally told him to take some nitroglycerin and go to the emergency department. Patient did take nitroglycerin and feels that this may have helped. Patient states that this pain does not feel similar to his prior CABG and PCI pain as that was more in his chest and this is more in his epigastric and abdominal region. DIAGNOSTICS EKG reveals normal sinus rhythm, right bundle branch block, nonspecific ST-T wave abnormalities. Chest CTA showed no pulmonary embolism, no aortic aneurysm or dissection, patchy groundglass opacities and densities most prominent in the lower lungs which is concerning for an infectious/inflammatory process. Emphysematous changes Laboratory reviewed, white blood cell 8.1, hemoglobin 14.6, platelets 146, d- dimer 0.67, sodium 135, creatinine 0.8, AST 38, ALT 53, creatinine kinase 186, troponin negative 3, proBNP 75, total cholesterol 177, LDL 94, HDL 44, amylase 62, lipase 152. Current cardiac medications include aspirin 81 mg daily, atenolol 25 mg daily, Lipitor 20 mg daily, Plavix 75 mg daily, Zetia 10 mg daily, Lasix 20 mg daily. Last echocardiogram from 06/23/2020 showed ejection fraction 60-65%, LVH, mild aortic stenosis without significant valvular disease. REVIEW OF SYSTEMS At the time of my exam: CONSTITUTIONAL: Denies fever or chills. CARDIOVASCULAR: +chest pain, +chronic shortness of breath, no orthopnea, PND or palpitations. RESPIRATORY: Denies cough. GASTROINTESTINAL: +abdominal pain, no diarrhea, constipation, nausea or vomiting. MUSCULOSKELETAL: Denies myalgias. NEUROLOGIC: Denies numbness, tingling or weakness. ENDOCRINE: Denies fatigue, weight change, polydipsia or polyurina. GENITOURINARY: Denies burning, hematuria or urgency with micturation. HEMATOLOGIC: Denies history of anemia or bleeding. PHYSICAL EXAMINATION Blood pressure 145/72 heart rate 83 afebrile and maintaining oxygen saturation on room air. CONSTITUTIONAL: No apparent distress, obese. HEENT: Head is normocephalic. Pupils are equal, round. Sclerae anicteric. Mucous membranes of the mouth are moist. No JVD. No carotid bruit. CHEST EXAMINATION: Decreased breath sounds at bases, +mild wheeze. No chest wall tenderness is noted on palpation or with deep breathing. HEART EXAMINATION: Regular rate and rhythm. S1, S2 heard. No murmurs, gallops or rub. ABDOMEN: Soft, nontender, obese. Positive bowel sounds. EXTREMITIES: 2+ peripheral pulses, no lower extremity edema and no calf tenderness. NEUROLOGIC EXAMINATION: Patient is awake, alert and oriented x3. ASSESSMENT 1. Atypical chest/ epigastric pain, troponins normal 3. Patient admits his pain feels more like epigastric pain and has been improving with Tums. He states his prior CABG and PCI pain felt more like substernal chest burning sensation. He does however note some mild improvement with nitroglycerin. 2. Essential hypertension 3. Coronary artery disease status post CABG approximately 30 years ago and PCI approximate 3 years ago 4. Hyperlipidemia 5. Chronic diastolic heart failure 6. Mild aortic stenosis 7. Obstructive sleep apnea 8. Chronic last opacities identified on CT thorax, rule out infectious process versus other 9. History of PAD status post intervention of his iliac arteries PLAN Pain appears more epigastric in nature occurring after eating [employer] 4-5 days ago. Patient does not really feel like his angina from before his bypass or his PCI. He did however have some improvement with nitroglycerin. Troponins negative 3, recent echocardiogram 06/2020 with normal left ventricular function without significant valvular disease. Would attempt to optimize medical therapy with outpatient follow-up. Pain appears more likely related to GI source however if pain persists despite optimal medical therapy, may consider stress testing or heart catheterization. Patient started on atenolol 25 mg daily and we will start Imdur 30 mg daily. Additionally consider PPI for possible GERD. Further workup of groundglass opacities per primary team. Patient appears stable for discharge from a cardiology standpoint with follow-up with primary predatory animal trapper in 1-2 weeks. Past Medical History Past Medical History: Coronary Artery Disease (CAD), Heart Failure, COPD, Hyperlipidemia, Hypertension Additional Past Medical History / Comment(s): COPD, obesity, coronary artery disease with previous bypass surgery, cataracts, hiatal hernia, obstructive sleep apnea for which the patient needs to be reevaluated for CPAP therapy. His latest sleep evaluation was done many years back. 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 LIVES WITH HIS OF 55 YEARS IN A SINGLE LEVEL HOME THAT HAS 4 PORCH STEPS. 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 NO OUT SIDE SERVICES RECIEVED. HAS A NEBULIZER. NO SERVICE IN PAST. RETIRED FROM [employer] [facility]. THEY HAVE 1 PET DOG. Smoking Status: Former smoker Past Alcohol Use History: None Reported Additional Past Alcohol Use History / Comment(s): STARTED SMOKING IN 1952, QUIT 1984 Past Drug Use History: None Reported Additional Drug Use History / Comment(s): QUIT MANY YEARS AGO. quit cigars 4/5 years ago - Past Family History Father Family Medical History: Hyperlipidemia, Myocardial Infarction ([place]) Additional Family Medical History / Comment(s): father and brothers(mi's in their 40's and 50's). Mother Family Medical History: CVA/TIA Additional Family Medical History / Comment(s): at age 99 3/4 from a stoke Medications and Allergies Home Medications Medication Instructions Recorded Confirmed Type Ezetimibe [Zetia] 10 mg PO DAILY 02/13/16 09/09/20 History atenoloL [Tenormin] 25 mg PO DAILY 02/13/16 09/09/20 History Nitroglycerin Sl Tabs [Nitrostat] 0.4 mg SUBLINGUAL Q5M PRN 06/22/16 09/09/20 History clonazePAM [KlonoPIN] 0.5 mg PO DAILY PRN 06/22/16 09/09/20 History Furosemide [Lasix] 20 mg PO DAILY #30 tab 06/25/16 09/09/20 Rx Albuterol Nebulized [Ventolin 2.5 mg INHALATION RT-Q6H PRN 10/20/19 09/09/20 History Nebulized] Clopidogrel [Plavix] 75 mg PO HS 10/20/19 09/09/20 History Rosuvastatin [Crestor] 10 mg PO HS 10/20/19 09/09/20 History Budesonide [Pulmicort] 0.5 mg INHALATION RT-BID PRN 06/22/20 09/09/20 History DULoxetine HCL [Cymbalta] 30 mg PO DAILY 06/22/20 09/09/20 History Ipratropium-Albuterol Nebulize 3 ml INHALATION RT-TID PRN 06/22/20 09/09/20 History [Duoneb 0.5 mg-3 mg/3 ml Soln] Montelukast Sodium [Singulair] 10 mg PO HS 06/22/20 09/09/20 History predniSONE 2.5 mg PO DAILY #0 06/24/20 09/09/20 Rx Allergies Allergy/AdvReac Type Severity Reaction Status Date / Time No Known Allergies Allergy Verified 09/09/20 14:46 Physical Exam Vitals: Vital Signs Temp Pulse Pulse Resp BP BP Pulse Ox 09/10/20 09:27 72 09/10/20 09:08 72 09/10/20 07:43 98.1 F 83 16 145/72 93 L 09/10/20 02:33 77 09/10/20 02:31 98.0 F 77 144/77 94 L 09/09/20 19:20 98.1 F 73 121/70 95 09/09/20 18:00 98 F 83 16 111/80 98 09/09/20 17:13 98.2 F 73 18 136/82 98 09/09/20 15:58 78 18 118/59 95 09/09/20 15:13 98.0 F 75 18 127/73 97 09/09/20 14:25 91 18 128/77 93 L Intake and Output 09/09/20 09/10/20 09/10/20 22:59 06:59 14:59 Intake Total 109.467 20 Balance 109.467 20 Intake: Intake, IV Titration 109.467 20 Amount Heparin Sod,Pork in 0.45% 109.467 NaCl 25,000 unit In 0.45 % NaCl 1 250ml.bag @ 9.5 UNITS/KG/HR 9.997 mls/hr IV .Q24H [facility] Rx#: [id number] Sodium Chloride 0.9% 1, 20 000 ml @ 20 mls/hr IV . Q24H [facility] Rx#:[id number] Oral 0 Other: Voiding Method Toilet Toilet Toilet # Voids 1 Weight 105.233 kg Results 09/09/20 14:50 09/09/20 14:50 Cardiac Enzymes 09/09/20 09/09/20 09/09/20 Range/Units 14:50 14:50 17:43 AST 38 (17-59) U/L Troponin I <0.012 <0.012 (0.000-0.034) ng/mL 09/09/20 Range/Units 20:51 AST (17-59) U/L Troponin I <0.012 (0.000-0.034) ng/mL Coagulation 09/09/20 09/10/20 Range/Units 14:50 04:46 PT 9.8 (9.0-12.0) sec APTT 24.1 34.8 H (22.0-30.0) sec Lipids 09/10/20 Range/Units 04:46 Triglycerides 193 H (<150) mg/dL Cholesterol 177 (<200) mg/dL HDL Cholesterol 44 (40-60) mg/dL CBC 09/09/20 Range/Units 14:50 WBC 8.1 (3.8-10.6) k/uL RBC 4.71 (4.30-5.90) m/uL Hgb 14.6 (13.0-17.5) gm/dL Hct 42.7 (39.0-53.0) % Plt Count 146 L (150-450) k/uL Comprehensive Metabolic Panel 09/09/20 Range/Units 14:50 Sodium 135 L (137-145) mmol/L Potassium 4.3 (3.5-5.1) mmol/L Chloride 104 (98-107) mmol/L Carbon Dioxide 25 (22-30) mmol/L BUN 18 (9-20) mg/dL Creatinine 0.80 (0.66-1.25) mg/dL Glucose 120 H (74-99) mg/dL Calcium 9.7 (8.4-10.2) mg/dL AST 38 (17-59) U/L ALT 53 H (4-49) U/L Alkaline Phosphatase 79 (38-126) U/L Total Protein 6.9 (6.3-8.2) g/dL Albumin 4.2 (3.5-5.0) g/dL Current Medications Generic Name Dose Route Start Last Admin Trade Name Freq PRN Reason Stop Dose Admin Albuterol/Ipratropium 3 ml 09/09/20 16:56 09/10/20 09:08 Ipratropium-Albuterol 3 Ml Neb INHALATION 3 ml RT-TID PRN Administration Shortness Of Breath Aspirin 81 mg 09/11/20 09:00 Aspirin 81 Mg PO DAILY [facility] Atenolol 25 mg 09/10/20 09:00 09/10/20 08:40 Atenolol 25 Mg Tab PO 25 mg DAILY [facility] Administration Atorvastatin Calcium 20 mg 09/09/20 21:00 09/09/20 20:14 Atorvastatin 20 Mg Tab PO 20 mg HS SAA Administration Azithromycin 500 mg 09/10/20 11:00 09/10/20 10:56 Azithromycin 500 Mg Tab PO 500 mg DAILY@1100 [facility] Administration Budesonide 0.5 mg 09/09/20 16:56 09/10/20 09:08 Budesonide 0.5 Mg/2 Ml Nebu INHALATION 0.5 mg RT-BID PRN Administration Shortness Of Breath Clonazepam 0.5 mg 09/09/20 16:56 09/09/20 21:59 Clonazepam 0.5 Mg Tab PO 0.5 mg DAILY PRN Administration Anxiety Clopidogrel Bisulfate 75 mg 09/09/20 21:00 09/09/20 20:14 Clopidogrel 75 Mg Tab PO 75 mg HS [facility] Administration Dexamethasone 6 mg 09/10/20 10:45 09/10/20 10:56 Dexamethasone 2 Mg Tab PO 6 mg DAILY [facility] Administration Duloxetine HCl 30 mg 09/10/20 09:00 09/10/20 08:41 Duloxetine Hcl 30 Mg Capsule.Dr PO 30 mg DAILY [facility] Administration Ezetimibe 10 mg 09/10/20 09:00 09/10/20 08:40 Ezetimibe 10 Mg Tab PO 10 mg DAILY [facility] Administration Furosemide 20 mg 09/10/20 09:00 09/10/20 08:40 Furosemide 20 Mg Tab PO 20 mg DAILY [facility] Administration Heparin Sodium (Porcine) 5,000 unit 09/10/20 21:00 Heparin Sodium,Porcine 5,000 Unit/Ml 1 Ml Vial SQ Q12HR [facility] Sodium Chloride 1,000 mls @ 20 mls/hr 09/09/20 17:00 09/09/20 17:26 Saline 0.9% IV 20 mls/hr .Q24H [facility] Administration Ceftriaxone Sodium 1 gm/ 50 mls @ 100 mls/hr 09/10/20 10:45 09/10/20 10:57 Sodium Chloride IVPB 100 mls/hr Q24HR [facility] Administration Montelukast Sodium 10 mg 09/09/20 21:00 09/09/20 20:14 Montelukast 10 Mg Tab PO 10 mg HS [facility] Administration Nitroglycerin 0.4 mg 09/09/20 16:54 Nitroglycerin Sl Tabs 0.4 Mg Tab SUBLINGUAL Q5M PRN Chest Pain Pantoprazole Sodium 40 mg 09/10/20 10:45 Pantoprazole 40 Mg/10 Ml Vial IVP BID [facility] Prednisone 2.5 mg 09/10/20 09:00 09/10/20 08:41 Prednisone 2.5 Mg Tab PO 2.5 mg DAILY [facility] Administration Intake and Output 09/09/20 09/10/20 09/10/20 22:59 06:59 14:59 Intake Total 109.467 20 Balance 109.467 20 Intake: Intake, IV Titration 109.467 20 Amount Heparin Sod,Pork in 0.45% 109.467 NaCl 25,000 unit In 0.45 % NaCl 1 250ml.bag @ 9.5 UNITS/KG/HR 9.997 mls/hr IV .Q24H [facility] Rx#: [id number] Sodium Chloride 0.9% 1, 20 000 ml @ 20 mls/hr IV . Q24H [facility] Rx#:[id number] Oral 0 Other: Voiding Method Toilet Toilet Toilet # Voids 1 Weight 105.233 kg 09/09/20 14:50 09/09/20 14:50
[2020-09-10] MEDS: SODIUM CHLORIDE 0.9% 1,000 ML IV SCH (19:55)
[2020-09-10] MEDS: HEPARIN SODIUM,PORCINE 5,000 UNIT/ML 1 ML VIAL SQ SCH (20:03)
[2020-09-10] MEDS: clonazePAM 0.5 MG TAB PO PRN (20:04)
[2020-09-10] MEDS: CLOPIDOGREL 75 MG TAB PO SCH (20:04)
[2020-09-10] MEDS: ATORVASTATIN 20 MG TAB PO SCH (20:04)
[2020-09-10] MEDS: MONTELUKAST 10 MG TAB PO SCH (20:04)
[2020-09-10 22:33] VITALS: TEMP 97.8
[2020-09-11 08:41] VITALS: BP 116/51; RESP 18
[2020-09-11] MEDS ORDERED: ASPIRIN 81 MG PO SCH (09:00)
[2020-09-11] MEDS: atenoloL 25 MG TAB PO SCH (09:25)
[2020-09-11] MEDS: PANTOPRAZOLE 40 MG/10 ML VIAL IVP SCH (09:26)
[2020-09-11] MEDS: FUROSEMIDE 20 MG TAB PO SCH (09:26)
[2020-09-11] MEDS: HEPARIN SODIUM,PORCINE 5,000 UNIT/ML 1 ML VIAL SQ SCH (09:26)
[2020-09-11] MEDS: dexAMETHasone 2 MG TAB PO SCH (09:26)
[2020-09-11] MEDS: predniSONE 2.5 MG TAB PO SCH (09:26)
[2020-09-11] MEDS: DULoxetine HCL 30 MG CAPSULE.DR PO SCH (09:26)
[2020-09-11] MEDS: AZITHROMYCIN 500 MG TAB PO SCH (09:26)
[2020-09-11] MEDS: EZETIMIBE 10 MG TAB PO SCH (09:26)
[2020-09-11] MEDS: IPRATROPIUM-ALBUTEROL 3 ML NEB INHALATION PRN (11:10)
[2020-09-11] MEDS: BUDESONIDE 0.5 MG/2 ML NEBU INHALATION PRN (11:10)
[2020-09-11 12:34] VITALS: PULSE 77
--- NOTE | 2020-09-11 15:01 | P.CNPUL ---
History of Present Illness Consult date: 09/10/20 Reason for consult: dyspnea, cough Chief complaint: Shortness of breath and cough History of present illness: This is a pleasant 80-year-old male very hard of hearing came into the hospital for shortness of breath and cough, patient has a history of COPD as well as coronary artery disease status post CABG, he sees Dr. Mcgill for primary care activity, patient started having symptoms a day before coming into the hospital with increasing shortness of breath some indigestion and heartburn also happening came into the hospital, he does have a low-grade fever, his oxygen saturation is 93%, his colorectal testing is negative, patient was evaluated by cardiovascular services as well as a computed tomography scan of the chest chest shows bilateral interstitial type of pneumonia at the bases along with bronchiectasis in the lower lobe, emphysematous changes were also noted as per discussion with primary service patient has been started on IV antibiotics with steroids Review of Systems All systems: negative Past Medical History Past Medical History: Coronary Artery Disease (CAD), Heart Failure, COPD, Hyperlipidemia, Hypertension Additional Past Medical History / Comment(s): COPD, obesity, coronary artery disease with previous bypass surgery, cataracts, hiatal hernia, obstructive sleep apnea for which the patient needs to be reevaluated for CPAP therapy. His latest sleep evaluation was done many years back. 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 LIVES WITH HIS OF 55 YEARS IN A SINGLE LEVEL HOME THAT HAS 4 [address] STEPS. THEY WINTER IN [place]. NO OUT SIDE SERVICES RECIEVED. HAS A NEBULIZER. NO SERVICE IN PAST. RETIRED FROM [employer]. THEY HAVE 1 PET DOG. Smoking Status: Former smoker Past Alcohol Use History: None Reported Additional Past Alcohol Use History / Comment(s): STARTED SMOKING IN 1953, QUIT 1984 Past Drug Use History: None Reported Additional Drug Use History / Comment(s): QUIT MANY YEARS AGO. quit cigars 4/5 years ago - Past Family History Father Family Medical History: Hyperlipidemia, Myocardial Infarction ([place]) Additional Family Medical History / Comment(s): father and brothers(mi's in their 40's and 50's). Mother Family Medical History: CVA/TIA Additional Family Medical History / Comment(s): at age 99 3/4 from a [place] Medications and Allergies Home Medications Medication Instructions Recorded Confirmed Type Ezetimibe [Zetia] 10 mg PO DAILY 02/13/16 09/09/20 History atenoloL [Tenormin] 25 mg PO DAILY 02/13/16 09/09/20 History Nitroglycerin Sl Tabs [Nitrostat] 0.4 mg SUBLINGUAL Q5M PRN 06/22/16 09/09/20 History clonazePAM [KlonoPIN] 0.5 mg PO DAILY PRN 06/22/16 09/09/20 History Furosemide [Lasix] 20 mg PO DAILY #30 tab 06/25/16 09/09/20 Rx Albuterol Nebulized [Ventolin 2.5 mg INHALATION RT-Q6H PRN 10/20/19 09/09/20 History Nebulized] Clopidogrel [Plavix] 75 mg PO HS 10/20/19 09/09/20 History Rosuvastatin [Crestor] 10 mg PO HS 10/20/19 09/09/20 History Budesonide [Pulmicort] 0.5 mg INHALATION RT-BID PRN 06/22/20 09/09/20 History DULoxetine HCL [Cymbalta] 30 mg PO DAILY 06/22/20 09/09/20 History Ipratropium-Albuterol Nebulize 3 ml INHALATION RT-TID PRN 06/22/20 09/09/20 History [Duoneb 0.5 mg-3 mg/3 ml Soln] Montelukast Sodium [Singulair] 10 mg PO HS 06/22/20 09/09/20 History predniSONE 2.5 mg PO DAILY #0 06/24/20 09/09/20 Rx Aspirin 81 mg PO DAILY 15 Days #15 chew 09/11/20 Rx Azithromycin [Zithromax] 500 mg PO DAILY@1100 #5 tab 12/27/20 Rx Cefuroxime Axetil [Ceftin] 500 mg PO BID 7 Days #14 tab 09/11/20 Rx Pantoprazole Sodium [Protonix] 40 mg PO DAILY #30 tablet. 09/11/20 Rx Allergies Allergy/AdvReac Type Severity Reaction Status Date / Time No Known Allergies Allergy Verified 09/09/20 14:46 Physical Exam Vitals: Vital Signs Temp Pulse Pulse Resp BP BP Pulse Ox 09/10/20 09:27 72 09/10/20 09:08 72 09/10/20 07:43 98.1 F 83 16 145/72 93 L 09/10/20 02:33 77 09/10/20 02:31 98.0 F 77 144/77 94 L 09/09/20 19:20 98.1 F 73 121/70 95 09/09/20 18:00 98 F 83 16 111/80 98 09/09/20 17:13 98.2 F 73 18 136/82 98 09/09/20 15:58 78 18 118/59 95 09/09/20 15:13 98.0 F 75 18 127/73 97 09/09/20 14:25 91 18 128/77 93 L Intake and Output 09/09/20 09/10/20 09/10/20 22:59 06:59 14:59 Intake Total 109.467 20 Balance 109.467 20 Intake: Intake, IV Titration 109.467 20 Amount Heparin Sod,Pork in 0.45% 109.467 NaCl 25,000 unit In 0.45 % NaCl 1 250ml.bag @ 9.5 UNITS/KG/HR 9.997 mls/hr IV .Q24H [facility] Rx#: [id number] Sodium Chloride 0.9% 1, 20 000 ml @ 20 mls/hr IV . Q24H [facility] Rx#:[id number] Oral 0 Other: Voiding Method Toilet Toilet Toilet # Voids 1 Weight 105.233 kg - Constitutional General appearance: morbidly obese - EENT Eyes: PERRLA Ears: bilateral: normal - Neck Carotids: bilateral: upstroke normal Thyroid: bilateral: normal size - Respiratory Respiratory: bilateral: diminished - Cardiovascular Rhythm: regular Heart sounds: normal: S1, S2 - Gastrointestinal General gastrointestinal: normal bowel sounds - Integumentary Integumentary: normal turgor - Neurologic Neurologic: CNII-XII intact - Musculoskeletal Musculoskeletal: gait normal, strength equal bilaterally Results - Laboratory Findings CBC and BMP: 09/09/20 14:50 09/09/20 14:50 PT/INR, D-dimer PT 9.8 sec (9.0-12.0) 09/09/20 14:50 INR 0.9 (<1.2) 09/09/20 14:50 D-Dimer 0.67 mg/L FEU (<0.60) H 09/09/20 14:50 Abnormal lab findings: Abnormal Labs 09/09/20 09/09/20 09/09/20 14:50 14:50 14:50 Plt Count 146 L APTT D-Dimer 0.67 H Sodium 135 L Glucose 120 H ALT 53 H Creatine Kinase 186 H Triglycerides 09/10/20 09/10/20 04:46 04:46 Plt Count APTT 34.8 H D-Dimer Sodium Glucose ALT Creatine Kinase Triglycerides 193 H - Diagnostic Findings Chest x-ray: report reviewed, image reviewed CT scan - chest: report reviewed, image reviewed (Finding as noted above) Assessment and Plan Assessment: Bilateral lower lobe pneumonia atypical, patient being started on Rocephin and Zithromax along with his steroids COPD, continue bronchodilator Chest pain and angina, cardiovascular services services are evaluating Morbid obesity GERD Hypertension hypertensive cardiovascular disease Coated negative status Plan: Plan as noted above we will start patient on antibiotics breathing treatments steroids, optimize therapy for COPD further recommendations pending plan of care as per clinical response of patient Time with Patient: Greater than 30
--- NOTE | 2020-09-11 15:04 | P.PN ---
Subjective Progress Note Date: 09/11/20 Principal diagnosis: Bilateral lower lobe pneumonia atypical, patient being started on Rocephin and Zithromax along with his steroids Acute exacerbation of COPD, continue bronchodilator Chest pain and angina, cardiovascular services services are evaluating Morbid obesity GERD Hypertension hypertensive cardiovascular disease Coated negative status 09/11/2020, patient respiratory status remains stable at room air breathing comfortably denies any sputum production chest pain is better patient remains afebrile patient wishes to go home agree with discharge planning on oral antibiotics along with oral tapering steroids with continuation of bronchodilator follow-up with primary epilepsy physician This is a pleasant 80-year-old male very hard of hearing came into the hospital for shortness of breath and cough, patient has a history of COPD as well as coronary artery disease status post CABG, he sees Dr. Mcgill for primary care activity, patient started having symptoms a day before coming into the hospital with increasing shortness of breath some indigestion and heartburn also happening came into the hospital, he does have a low-grade fever, his oxygen saturation is 93%, his colorectal testing is negative, patient was evaluated by cardiovascular services as well as a computed tomography scan of the chest chest shows bilateral interstitial type of pneumonia at the bases along with bronchiectasis in the lower lobe, emphysematous changes were also noted as per discussion with primary service patient has been started on IV antibiotics with steroids Objective - Vital Signs Vital signs: Vital Signs Temp 97.8 F 09/11/20 08:39 Pulse 74 09/11/20 11:20 Resp 18 09/11/20 09:00 BP 116/51 09/11/20 08:39 Pulse Ox 94 L 09/11/20 08:39 Intake & Output 09/10/20 09/11/20 09/11/20 18:59 06:59 18:59 Intake Total 470 600 Balance 470 600 Intake: Intake, IV Titration 70 Amount Sodium Chloride 0.9% 1, 20 000 ml @ 20 mls/hr IV . Q24H [facility] Rx#:[id number] cefTRIAXone 1 gm In 50 Sodium Chloride 0.9% 50 ml @ 100 mls/hr IVPB Q24HR [facility] Rx#:[id number] Oral 400 600 Other: Voiding Method Toilet Toilet Toilet # Voids 3 # Bowel Movements 2 - Exam - Constitutional General appearance: morbidly obese - EENT Eyes: PERRLA Ears: bilateral: normal - Neck Carotids: bilateral: upstroke normal Thyroid: bilateral: normal size - Respiratory Respiratory: bilateral: diminished - Cardiovascular Rhythm: regular Heart sounds: normal: S1, S2 - Gastrointestinal General gastrointestinal: normal bowel sounds - Integumentary Integumentary: normal turgor - Neurologic Neurologic: CNII-XII intact - Musculoskeletal Musculoskeletal: gait normal, strength equal bilaterally - Labs CBC & Chem 7: 09/09/20 14:50 09/09/20 14:50 Assessment and Plan Assessment: Bilateral lower lobe pneumonia atypical, patient being started on Rocephin and Zithromax along with his steroids Acute exacerbation of COPD COPD, continue bronchodilator Chest pain and angina, cardiovascular services services are evaluating Morbid obesity GERD Hypertension hypertensive cardiovascular disease Coated negative status Plan: Plan as noted above we will start patient on antibiotics breathing treatments steroids, optimize therapy for COPD, agree with discharge planning with oral antibiotics and steroids further recommendations pending plan of care as per clinical response of patient Time with Patient: Greater than 30
--- NOTE | 2020-09-11 23:24 | P.DS ---
Providers Date of admission: 09/09/20 17:03 Attending physician: Sabas Patrick MD Consults: 09/09/20 16:54 Consult Physician Urgent Consulting Provider: Tee Foss Consult Reason/Comments: Chest pain Do you want consulting provider notified?: Yes 09/10/20 10:12 Consult Physician Urgent Consulting Provider: Calvin Marcano Consult Reason/Comments: abn ct of the chest Do you want consulting provider notified?: Already Contacted Primary care physician: Doretha [place] [facility] Course: Diagnoses: -Bilateral lower lobe atypical pneumonia . Covid is negative. Patient is cleared for discharge by pulmonary service -Chest pain felt like heartburn. Cardiology already cleared the patient for discharge and to take aspirin and follow-up with PCP and fagot maker in 1 week. Chest pain-free upon discharge -Heartburn, improved and discharged with Protonix -History of COPD, steroid dependent on low dose prednisone 2.5. No oxygen at home. Continue with current management -Hyperlipidemia -Hypertension -Obesity -Anxiety and depression, not an active issue Hospital course: This is a pleasant 80 years old male with multiple medical problems as below. Presents because of chest pain. 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 The patient for discharge and he felt like is more related to her GI symptoms as recommended PPI, Protonix is added and patient feels better. Also fagot maker recommended start patient on aspirin 81 mg in the patient to follow up with his own fagot maker to decide if he to continue on aspirin or not, patient informed and he agrees to call and make appointment with his own fagot maker Dr. Luis Alfredo Dubose as he told me. Also pulmonary consult was obtained due to abnormal CAT scan, although patient is with no dyspnea and he is breathing normally on room air. covid test came back negative. Pulmonary consult was obtained and recommended antibiotic, started on Zithromax and ceftriaxone and to continue with oral antibiotics with Ceftin and Zithromax upon discharge, patient also instructed to follow up with his door to door sales representative in 1-2 weeks and he agrees to call and make his own appointment Patient is back to his baseline and his been asymptomatic, he denies any other symptoms, no change in urine or bowel habits. No headache or weakness or numbness. No fever Patient was cleared for discharge by door to door sales representative and fagot maker Problems and management plan were discussed with the patient and he verbalized understanding and acceptance Patient was found stable and can be discharged home however he needs follow-up as an outpatient. Patient was instructed to follow up with PCP Dr. Palacios within one week and patient agrees. Also patient was instructed to follow up with his own fagot maker and door to door sales representative in 1-2 weeks and he agrees to call and make appointment as he has the contact information. Gen: patient is a AAOx3, no distress CVS: S1-S2, RRR, no murmur Lungs: B/L CTA, no wheezing Abdomen: soft, no distention, no tenderness, positive bowel sounds Extremity: no leg edema or induration Time spent more than 35 minutes Patient Condition at Discharge: Fair Plan - Discharge Summary Discharge Rx Participant: No New Discharge Prescriptions: New Aspirin 81 mg PO DAILY 15 Days #15 chew Cefuroxime Axetil [Ceftin] 500 mg PO BID 7 Days #14 tab Pantoprazole Sodium [Protonix] 40 mg PO DAILY #30 tablet. Azithromycin [Zithromax] 500 mg PO DAILY@1100 #5 tab Continue atenoloL [Tenormin] 25 mg PO DAILY Ezetimibe [Zetia] 10 mg PO DAILY clonazePAM [KlonoPIN] 0.5 mg PO DAILY PRN PRN Reason: Anxiety Nitroglycerin Sl Tabs [Nitrostat] 0.4 mg SUBLINGUAL Q5M PRN PRN Reason: Chest Pain Furosemide [Lasix] 20 mg PO DAILY #30 tab Albuterol Nebulized [Ventolin Nebulized] 2.5 mg INHALATION RT-Q6H PRN PRN Reason: Shortness Of Breath Clopidogrel [Plavix] 75 mg PO HS Rosuvastatin [Crestor] 10 mg PO HS Budesonide [Pulmicort] 0.5 mg INHALATION RT-BID PRN PRN Reason: Shortness Of Breath Ipratropium-Albuterol Nebulize [Duoneb 0.5 mg-3 mg/3 ml Soln] 3 ml INHALATION RT-TID PRN PRN Reason: Shortness Of Breath DULoxetine HCL [Cymbalta] 30 mg PO DAILY Montelukast Sodium [Singulair] 10 mg PO HS predniSONE 2.5 mg PO DAILY #0 Discharge Medication List Ezetimibe [Zetia] 10 mg PO DAILY 02/13/16 [History] atenoloL [Tenormin] 25 mg PO DAILY 02/13/16 [History] Nitroglycerin Sl Tabs [Nitrostat] 0.4 mg SUBLINGUAL Q5M PRN 06/22/16 [History] clonazePAM [KlonoPIN] 0.5 mg PO DAILY PRN 06/22/16 [History] Furosemide [Lasix] 20 mg PO DAILY #30 tab 06/25/16 [Rx] Albuterol Nebulized [Ventolin Nebulized] 2.5 mg INHALATION RT-Q6H PRN 10/20/19 [History] Clopidogrel [Plavix] 75 mg PO HS 10/20/19 [History] Rosuvastatin [Crestor] 10 mg PO HS 10/20/19 [History] Budesonide [Pulmicort] 0.5 mg INHALATION RT-BID PRN 06/22/20 [History] DULoxetine HCL [Cymbalta] 30 mg PO DAILY 06/22/20 [History] Ipratropium-Albuterol Nebulize [Duoneb 0.5 mg-3 mg/3 ml Soln] 3 ml INHALATION RT-TID PRN 06/22/20 [History] Montelukast Sodium [Singulair] 10 mg PO HS 06/22/20 [History] predniSONE 2.5 mg PO DAILY #0 06/24/20 [Rx] Aspirin 81 mg PO DAILY 15 Days #15 chew 09/11/20 [Rx] Azithromycin [Zithromax] 500 mg PO DAILY@1100 #5 tab 09/11/20 [Rx] Cefuroxime Axetil [Ceftin] 500 mg PO BID 7 Days #14 tab 09/11/20 [Rx] Pantoprazole Sodium [Protonix] 40 mg PO DAILY #30 tablet. 09/11/20 [Rx] Follow up Appointment(s)/Referral(s): Doretha Rose MD [Primary Care Provider] - 1-2 days (call for follow up) Calvin Marcano MD [STAFF PHYSICIAN] - 1 Week Patient Instructions/Handouts: Chest Pain (DC), Bronchiolitis (GEN), COPD (Chronic Obstructive Pulmonary Disease) (GEN) Activity/Diet/Wound Care/Special Instructions: Heart healthy diet Activity is restricted until you see your doctor we recommended follow-up with your fagot maker Dr. Luis Alfredo Dubose as you informed the medical team you have his contact information. We like you to call and make an appointment in 1 week. Please discussed with him the need to continue or stop baby aspirin We recommend he follow-up with your door to door sales representative Dr. Gómez, as you informed the medical team you have his contact information. We like you to call and make an appointment in 1 week. Discharge Disposition: HOME SELF-CARE
== END 2020-09-11 15:30 | disposition home or self-care (01) ==
LOC: EC 14:17 → 1SOBS 17:03
PROVIDERS: ADMIT Internal Medicine; ATTEND Internal Medicine
DX: J18.9 Pneumonia, unspecified organism (principal); R07.89 Other chest pain; R12 Heartburn; J43.9 Emphysema, unspecified; E78.5 Hyperlipidemia, unspecified; I11.0 Hypertensive heart disease with heart failure; I50.32 Chronic diastolic (congestive) heart failure; F41.9 Anxiety disorder, unspecified; F32.9 Major depressive disorder, single episode, unspecified; I25.10 Atherosclerotic heart disease of native coronary artery without angina pectoris; K44.9 Diaphragmatic hernia without obstruction or gangrene; G47.33 Obstructive sleep apnea (adult) (pediatric); I45.10 Unspecified right bundle-branch block; J47.0 Bronchiectasis with acute lower respiratory infection; E66.01 Morbid (severe) obesity due to excess calories; I73.9 Peripheral vascular disease, unspecified; J84.10 Pulmonary fibrosis, unspecified; R94.31 Abnormal electrocardiogram [ECG] [EKG]; I35.0 Nonrheumatic aortic (valve) stenosis; Z20.828 Contact with and (suspected) exposure to other viral communicable diseases; H91.90 Unspecified hearing loss, unspecified ear; Z95.1 Presence of aortocoronary bypass graft; Z95.5 Presence of coronary angioplasty implant and graft; Z79.899 Other long term (current) drug therapy; Z79.02 Long term (current) use of antithrombotics/antiplatelets; Z79.51 Long term (current) use of inhaled steroids; Z79.52 Long term (current) use of systemic steroids; Z68.35 Body mass index [BMI] 35.0-35.9, adult; Z98.41 Cataract extraction status, right eye; Z98.42 Cataract extraction status, left eye; Z90.89 Acquired absence of other organs; Z90.49 Acquired absence of other specified parts of digestive tract; Z98.890 Other specified postprocedural states; Z87.09 Personal history of other diseases of the respiratory system; Z87.891 Personal history of nicotine dependence; Z95.820 Peripheral vascular angioplasty status with implants and grafts; Z82.3 Family history of stroke; Z83.438 Family history of other disorder of lipoprotein metabolism and other lipidemia; Z82.49 Family history of ischemic heart disease and other diseases of the circulatory system
CPT/HCPCS: 93005 ×2; 96365; 96366 ×3; 96367; 96372 ×2; 96375; 96376 ×3; 99291; 36415; 94640 ×3; 85379; 83880; 80061; 80053; 82150; 82550; 83690; 83735; 84484; 85025; 85610; 85730 ×2; 87635; 71046; 71275; G0378 ×3; J1644 ×4; J0696 ×2; J8540 ×2; J7512 ×2; C9113 ×2; Q9967

== ENCOUNTER → 2020-09-29 | Outpatient (CLI) | payer MEDICARE ==
--- NOTE | 2020-09-29 10:58 | XR ---
EXAMINATION TYPE: XR lumbar spine 2 or 3V DATE OF EXAM: 09/29/2020 CLINICAL HISTORY: Low back pain. TECHNIQUE: Frontal and lateral images of the lumbar spine are obtained. COMPARISON: CTA abdomen and pelvis May 27, 2018 FINDINGS: There are 5 lumbar type vertebral bodies redemonstrated. The lumbar spine shows stable an d satisfactory alignment . Vertebral body heights are maintained. Moderate to severe multilevel disc space narrowing and multilevel spurring with relative sparing of the L3-L4 level. Some interval progr ession from 2018. Multilevel spinous processes resection is redemonstrated posteriorly. Multilevel un covertebral facet degenerative changes are present greatest in the lower lumbar spine with interval p rogression. Fairly prominent vascular calculation overlying abdominal aorta with small metallic stent graft in the upper abdomen. Partial visualization of left hip metallic hardware. Sclerosis and narro wing of the bilateral sacroiliac joints redemonstrated. IMPRESSION: As above.
--- NOTE | 2020-10-05 10:48 | P.ARTDOP ---
Arterial Doppler LOWER EXTREMITY ARTERIAL DOPPLER: DATE OF SERVICE: 09/29/2020 Reason for study: Bilateral thigh pain. Doppler waveforms: Multiphasic bilaterally throughout. Digital waveforms adequate. Pulse volume recording: []. Pressure gradients: None significant. Ankle-brachial indices: Greater than 1 bilaterally. Suspicious that they are falsely elevated.. Toe brachial indices: 0.62 on the right, 0.56 on the left Impression: Suspect calcific wall disease bilaterally due to elevation of especially right ankle pressures. Does not appear to be have dramatic effect on distal flow. Clinical correlation recommended..
== END | disposition home or self-care (01) ==
LOC: RADUSWWP 09:13
PROVIDERS: ATTEND Family Medicine
DX: I73.9 Peripheral vascular disease, unspecified (principal); M48.061 Spinal stenosis, lumbar region without neurogenic claudication; M47.816 Spondylosis without myelopathy or radiculopathy, lumbar region
CPT/HCPCS: 72100; 93922

== ENCOUNTER 2021-07-19 12:48 | Observation (INO) | payer MEDICARE ==
[2021-07-19] MEDS ORDERED: IPRATROPIUM-ALBUTEROL 3 ML NEB INHALATION STA (12:55)
[2021-07-19] MEDS ORDERED: methylPREDNISolone SOD SUCCI 125 MG/2 ML VIAL IV STA (12:55)
--- NOTE | 2021-07-19 13:00 | ED ---
General Adult HPI - General Stated complaint: FER Time Seen by Provider: 07/19/21 12:50 Source: patient, EMS, RN notes reviewed Mode of arrival: EMS Limitations: no limitations - History of Present Illness Initial comments: Patient is a pleasant 81-year-old male presenting to the emergency Department with complaints of difficulty breathing. Onset of symptoms was yesterday. Andres joseph does have history of similar symptoms previously associated with COPD. Patient has dry cough. No fevers. No leg pain or leg swelling. No chest discomfort. Patient feels fatigued. - Related Data Home Medications Medication Instructions Recorded Confirmed Ezetimibe [Zetia] 10 mg PO DAILY 02/13/16 07/19/21 atenoloL [Tenormin] 25 mg PO DAILY 02/13/16 07/19/21 Nitroglycerin Sl Tabs [Nitrostat] 0.4 mg SUBLINGUAL Q5M PRN 06/22/16 07/19/21 clonazePAM [KlonoPIN] 0.5 mg PO DAILY PRN 06/22/16 07/19/21 Clopidogrel [Plavix] 75 mg PO HS 10/20/19 07/19/21 Rosuvastatin [Crestor] 10 mg PO HS 10/20/19 07/19/21 Montelukast Sodium [Singulair] 10 mg PO HS 06/22/20 07/19/21 DULoxetine HCL [Cymbalta] 60 mg PO DAILY 07/19/21 07/19/21 Previous Rx's Medication Instructions Recorded Furosemide [Lasix] 20 mg PO DAILY #30 tab 06/25/16 Allergies Allergy/AdvReac Type Severity Reaction Status Date / Time No Known Allergies Allergy Verified 07/19/21 13:42 Review of Systems ROS Statement: Those systems with pertinent positive or pertinent negative responses have been documented in the HPI. ROS Other: All systems not noted in ROS Statement are negative. Constitutional: Denies: fever Eyes: Denies: eye pain ENT: Denies: ear pain Respiratory: Reports: cough, dyspnea Cardiovascular: Denies: chest pain Endocrine: Reports: fatigue Gastrointestinal: Denies: abdominal pain Genitourinary: Denies: dysuria Musculoskeletal: Denies: back pain Skin: Denies: rash Neurological: Denies: weakness Past Medical History Past Medical History: Coronary Artery Disease (CAD), Heart Failure, COPD, Hyperlipidemia, Hypertension Additional Past Medical History / Comment(s): COPD, obesity, coronary artery disease with previous bypass surgery, cataracts, hiatal hernia, obstructive sleep apnea for which the patient needs to be reevaluated for CPAP therapy. His latest sleep evaluation was done many years back. 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 LIVES WITH HIS OF 55 YEARS IN A SINGLE LEVEL HOME THAT HAS 4 PORCH STEPS. 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 NO OUT SIDE SERVICES RECIEVED. HAS A NEBULIZER. NO SERVICE IN PAST. RETIRED FROM [employer]. THEY HAVE 1 PET DOG. Smoking Status: Former smoker Past Alcohol Use History: None Reported Additional Past Alcohol Use History / Comment(s): STARTED SMOKING IN 1952, QUIT 1984 Past Drug Use History: None Reported Additional Drug Use History / Comment(s): QUIT MANY YEARS AGO. quit cigars 4/5 years ago - Past Family History Father Family Medical History: Hyperlipidemia, Myocardial Infarction ([place]) Additional Family Medical History / Comment(s): father and brothers(mi's in their 40's and 50's). Mother Family Medical History: CVA/TIA Additional Family Medical History / Comment(s): at age 99 3/4 from a stoke General Exam Limitations: no limitations General appearance: alert, in no apparent distress Head exam: Present: normocephalic Eye exam: Present: normal appearance Neck exam: Present: normal inspection Respiratory exam: Present: wheezes, decreased breath sounds Cardiovascular Exam: Present: regular rate, normal rhythm, normal heart sounds Expanded Peripheral pulses: 2+: Radial (R), Radial (L), Posterior Tibialis (R), Posterior Tibialis (L) GI/Abdominal exam: Present: soft. Absent: tenderness Extremities exam: Present: normal inspection. Absent: pedal edema, calf tenderness Back exam: Present: normal inspection Neurological exam: Present: alert Psychiatric exam: Present: normal affect, normal mood Skin exam: Present: normal color Course Vital Signs 07/19/21 07/19/21 07/19/21 12:53 13:43 13:51 Temperature 97.7 F Pulse Rate 60 54 L 56 L Respiratory 16 16 18 Rate Blood Pressure 142/73 O2 Sat by Pulse 97 Oximetry EKG Findings - EKG Comments: EKG Findings:: Sinus bradycardia with a rate of 56. DE 186. QRS 142. QT 466. QTc 449. Left axis. Right bundle branch block. No acute ST change. Medical Decision Making - Medical Decision Making Patient reevaluated and somewhat improved. Patient and family updated on results and plan. Case was discussed with Dr. Deng, who will admit Her Dr. Palacios. - Lab Data Result diagrams: 07/19/21 13:32 07/19/21 13:32 Lab Results 07/19/21 07/19/21 07/19/21 Range/Units 13:32 13:32 13:32 WBC 5.3 (3.8-10.6) k/uL RBC 4.71 (4.30-5.90) m/uL Hgb 15.4 (13.0-17.5) gm/dL Hct 44.1 (39.0-53.0) % MCV 93.5 (80.0-100.0) fL MCH 32.6 (25.0-35.0) pg MCHC 34.9 (31.0-37.0) g/dL RDW 13.7 (11.5-15.5) % Plt Count 135 L (150-450) k/uL MPV 10.4 Neutrophils % 60 % Lymphocytes % 24 % Monocytes % 7 % Eosinophils % 5 % Basophils % 1 % Neutrophils # 3.2 (1.3-7.7) k/uL Lymphocytes # 1.3 (1.0-4.8) k/uL Monocytes # 0.4 (0-1.0) k/uL Eosinophils # 0.3 (0-0.7) k/uL Basophils # 0.0 (0-0.2) k/uL PT 10.3 (9.0-12.0) sec INR 1.0 (<1.2) APTT 23.3 (22.0-30.0) sec Sodium 135 L (137-145) mmol/L Potassium 4.7 (3.5-5.1) mmol/L Chloride 105 (98-107) mmol/L Carbon Dioxide 22 (22-30) mmol/L Anion Gap 8 mmol/L BUN 17 (9-20) mg/dL Creatinine 0.82 (0.66-1.25) mg/dL Est GFR (CKD-EPI)AfAm >90 (>60 ml/min/1.73 sqM) Est GFR (CKD-EPI)NonAf 84 (>60 ml/min/1.73 sqM) Glucose 117 H (74-99) mg/dL Plasma Lactic Acid Ronaldo (0.7-2.0) mmol/L Calcium 9.0 (8.4-10.2) mg/dL Magnesium 2.2 (1.6-2.3) mg/dL Total Bilirubin 0.6 (0.2-1.3) mg/dL AST 38 (17-59) U/L ALT 43 (4-49) U/L Alkaline Phosphatase 68 (38-126) U/L Total Protein 6.8 (6.3-8.2) g/dL Albumin 4.1 (3.5-5.0) g/dL Coronavirus (PCR) (Not Detectd) 07/19/21 07/19/21 Range/Units 13:32 13:32 WBC (3.8-10.6) k/uL RBC (4.30-5.90) m/uL Hgb (13.0-17.5) gm/dL Hct (39.0-53.0) % MCV (80.0-100.0) fL MCH (25.0-35.0) pg MCHC (31.0-37.0) g/dL RDW (11.5-15.5) % Plt Count (150-450) k/uL MPV Neutrophils % % Lymphocytes % % Monocytes % % Eosinophils % % Basophils % % Neutrophils # (1.3-7.7) k/uL Lymphocytes # (1.0-4.8) k/uL Monocytes # (0-1.0) k/uL Eosinophils # (0-0.7) k/uL Basophils # (0-0.2) k/uL PT (9.0-12.0) sec INR (<1.2) APTT (22.0-30.0) sec Sodium (137-145) mmol/L Potassium (3.5-5.1) mmol/L Chloride (98-107) mmol/L Carbon Dioxide (22-30) mmol/L Anion Gap mmol/L BUN (9-20) mg/dL Creatinine (0.66-1.25) mg/dL Est GFR (CKD-EPI)AfAm (>60 ml/min/1.73 sqM) Est GFR (CKD-EPI)NonAf (>60 ml/min/1.73 sqM) Glucose (74-99) mg/dL Plasma Lactic Acid Ronaldo 1.6 (0.7-2.0) mmol/L Calcium (8.4-10.2) mg/dL Magnesium (1.6-2.3) mg/dL Total Bilirubin (0.2-1.3) mg/dL AST (17-59) U/L ALT (4-49) U/L Alkaline Phosphatase (38-126) U/L Total Protein (6.3-8.2) g/dL Albumin (3.5-5.0) g/dL Coronavirus (PCR) Not Detected (Not Detectd) - Radiology Data Radiology results: image reviewed (Chest x-ray does show cardiomegaly and diffuse interstitial density.) Disposition Clinical Impression: Acute exacerbation of chronic obstructive airways disease Disposition: ADMITTED IP TO THIS HOSP Is patient prescribed a controlled substance at d/c from ED?: No Referrals: Doretha Rose MD [Primary Care Provider] - 1-2 days Decision Time: 15:19
--- NOTE | 2021-07-19 13:26 | XR ---
EXAMINATION TYPE: XR chest 2V DATE OF EXAM: 07/19/2021 COMPARISON: 09/09/2020 HISTORY: 81-year-old male shortness of breath, difficulty breathing TECHNIQUE: AP and lateral views FINDINGS: Median sternotomy wires are present. Post-CABG clips in the mediastinum. Heart is mildly enlarged. Di ffuse interstitial density. No sizable pleural effusion. IMPRESSION: Cardiomegaly and diffuse interstitial density. Correlate for CHF with mild pulmonary vascular congest ion. Bronchitis or atypical pneumonias can be excluded on a clinical basis.
[2021-07-19 14:05] LABS: ALT 43 U/L (4-49); AST 38 U/L (17-59); African American GFR (CKD) >90 (>60 ml/min/1.73 sqM); Albumin 4.1 g/dL (3.5-5.0); Alkaline Phosphatase 68 U/L (38-126); Anion Gap 8 mmol/L; Blood Urea Nitrogen 17 mg/dL (9-20); Carbon Dioxide 22 mmol/L (22-30); Chloride 105 mmol/L (98-107); Glucose 117 mg/dL (74-99); Magnesium 2.2 mg/dL (1.6-2.3); Non-African American GFR(CKD) 84 (>60 ml/min/1.73 sqM); Potassium 4.7 mmol/L (3.5-5.1); Sodium 135 mmol/L (137-145); Total Bilirubin 0.6 mg/dL (0.2-1.3); Total Protein 6.8 g/dL (6.3-8.2)
[2021-07-19 14:10] LABS: Basophils % (A) 1 %; Eosinophils # (A) 0.3 k/uL (0-0.7); Eosinophils % (A) 5 %; HCT 44.1 % (39.0-53.0); HGB 15.4 gm/dL (13.0-17.5); Lymphocytes # (A) 1.3 k/uL (1.0-4.8); Lymphocytes % (A) 24 %; MCH 32.6 pg (25.0-35.0); MCHC 34.9 g/dL (31.0-37.0); MCV 93.5 fL (80.0-100.0); Mean Platelet Volume 10.4; Monocytes # (A) 0.4 k/uL (0-1.0); Monocytes % (A) 7 %; Neutrophils # (A) 3.2 k/uL (1.3-7.7); Neutrophils % (A) 60 %; Platelet Count 135 k/uL (150-450); RBC 4.71 m/uL (4.30-5.90); RDW 13.7 % (11.5-15.5); WBC 5.3 k/uL (3.8-10.6)
[2021-07-19 14:17] LABS: Partial Thromboplastin Time 23.3 sec (22.0-30.0); Prothrombin Time 10.3 sec (9.0-12.0)
[2021-07-19] MEDS ORDERED: IPRATROPIUM-ALBUTEROL 3 ML NEB INHALATION PRN (15:19)
[2021-07-19] MEDS: methylPREDNISolone SOD SUCCI 125 MG/2 ML VIAL IV SCH (18:47)
[2021-07-19] MEDS: IPRATROPIUM-ALBUTEROL 3 ML NEB INHALATION SCH ×2 (19:54→21:17)
[2021-07-19] MEDS: ATORVASTATIN 20 MG TAB PO SCH (20:18)
[2021-07-19] MEDS: MONTELUKAST 10 MG TAB PO SCH (20:18)
[2021-07-19] MEDS: CLOPIDOGREL 75 MG TAB PO SCH (20:18)
[2021-07-20] MEDS: methylPREDNISolone SOD SUCCI 125 MG/2 ML VIAL IV SCH ×4 (00:23→17:21)
[2021-07-20] MEDS ORDERED: clonazePAM 0.5 MG TAB PO PRN (00:44)
--- NOTE | 2021-07-20 00:48 | P.HPIM ---
History of Present Illness H&P Date: 07/19/21 Chief Complaint: SOB Patient is a 81-year-old male with a known history of COPD, hypertension, hyperlipidemia, coronary disease history of CABG, history of stent placement, ob structive sleep apnea not on CPAP at home, anxiety/depression previous history of smoking presented to ER with complaints of worsening shortness of breath since yesterday morning. Patient does have history of COPD and is on follow-up with pulmonary physician at [facility]. Shortness of breath appears similar to his previous COPD exacerbation and presents to ER for evaluation. Denies any complaints of chest pain.Denies any worsening leg swelling. No nausea vomiting or abdominal pain or diarrhea. Patient feels fatigued and weak. Patient does have minimal cough. No sputum production. No headache or dizziness or lightheadedness. Denies any sick contacts at home. Chest x-ray showed cardiomegaly and diffuse interstitial density. Correlate for CHF with mild pulmonary vascular congestion. Bronchitis or atypical pneumonias cannot be excluded on a clinical basis. Laboratory data showed sodium 135 potassium 4.7 chloride 105 BUN 17 and creatinine 0.82 lactic acid 7.6 Magnesium 2.2 liver enzymes are not elevated WBC 5.3 hemoglobin 15.4 and platelets 135 Review of Systems Constitutional: Patient denies any fever or chills . Generalized weakness and f atigue. Abdomen: Patient denied nausea vomiting and diarrhea and abdominal pain. Cardiovascular: Patient denies any chest pain or short of breath no palpitations. Respiratory: Cough without sputum production and shortness of breath. Neurologic: Patient denied any numbness or tingling headache. Musculoskeletal: Patient denies any complaints of joint swelling or deformity. Skin: Negative Psychiatric: Negative Endocrine: No heat or cold intolerance. No recent weight gain. Genitourinary: No dysuria or hematuria. All other 14 point ROS negative except the above Past Medical History Past Medical History: Coronary Artery Disease (CAD), Heart Failure, COPD, Hyperlipidemia, Hypertension, Sleep Apnea/CPAP/BIPAP Additional Past Medical History / Comment(s): COPD, obesity, coronary artery disease with previous bypass surgery, cataracts, hiatal hernia, obstructive sleep apnea for which the patient needs to be reevaluated for CPAP therapy. His latest sleep evaluation was done many years back. 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 LIVES WITH HIS OF 55 YEARS IN A SINGLE LEVEL HOME THAT HAS 4 PORCH STEPS. 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 NO OUT SIDE SERVICES RECIEVED. HAS A NEBULIZER. NO SERVICE IN PAST. RETIRED FROM [employer]. THEY HAVE 1 PET DOG. Smoking Status: Former smoker Past Alcohol Use History: Occasional Additional Past Alcohol Use History / Comment(s): Pt states he quit smoking 4 years ago. Past Drug Use History: None Reported - Past Family History Father Family Medical History: Hyperlipidemia, Myocardial Infarction ([place]) Additional Family Medical History / Comment(s): father and brothers(mi's in their 40's and 50's). Mother Family Medical History: CVA/TIA Additional Family Medical History / Comment(s): at age 99 3/4 from a stoke Medications and Allergies Home Medications Medication Instructions Recorded Confirmed Type Ezetimibe [Zetia] 10 mg PO DAILY 02/13/16 07/19/21 History atenoloL [Tenormin] 25 mg PO DAILY 02/13/16 07/19/21 History Nitroglycerin Sl Tabs [Nitrostat] 0.4 mg SUBLINGUAL Q5M PRN 06/22/16 07/19/21 History clonazePAM [KlonoPIN] 0.5 mg PO DAILY PRN 06/22/16 07/19/21 History Furosemide [Lasix] 20 mg PO DAILY #30 tab 06/25/16 07/19/21 Rx Clopidogrel [Plavix] 75 mg PO HS 10/20/19 07/19/21 History Rosuvastatin [Crestor] 10 mg PO HS 10/20/19 07/19/21 History Montelukast Sodium [Singulair] 10 mg PO HS 06/22/20 07/19/21 History DULoxetine HCL [Cymbalta] 60 mg PO DAILY 07/19/21 07/19/21 History Allergies Allergy/AdvReac Type Severity Reaction Status Date / Time No Known Allergies Allergy Verified 07/19/21 13:42 Physical Exam Vitals: Vital Signs Temp Pulse Pulse Resp BP BP Pulse Ox 07/19/21 21:32 67 07/19/21 21:17 67 07/19/21 18:51 83 18 07/19/21 18:21 97.8 F 83 18 148/71 95 07/19/21 17:35 98.3 F 74 16 136/85 98 07/19/21 13:51 56 L 18 07/19/21 13:43 54 L 16 07/19/21 12:53 97.7 F 60 16 142/73 97 Intake and Output 07/19/21 07/19/21 07/19/21 06:59 14:59 22:59 Other: Voiding Method Toilet Weight 97.069 kg 97.069 kg PHYSICAL EXAMINATION: Patient is lying in the bed comfortably, no acute distress, awake alert and oriented.. HEENT: Normocephalic. Neck is supple. Pupils reactive. Nostrils clear. Oral cavity is moist. Neck reveals no JVD, carotid bruits, or thyromegaly. CHEST EXAMINATION: Trachea is central. Symmetrical expansion.Bilateral diminished lung sounds. Minimal wheezing. Using accessory muscles.. CARDIAC: Normal S1, S2 with no gallops. No murmurs ABDOMEN: Soft. Bowel sounds normal. No organomegaly. No abdominal bruits. Extremities: reveal no edema. No clubbing or cyanosis Neurologically awake, alert, oriented x3 with well-coordinated movements. No focal deficits noted Skin: No rash or skin lesions. Psychiatric: Cooperative. Nonsuicidal Musculoskeletal: No joint swelling or deformity. Normal range of motion. Results CBC & Chem 7: 07/19/21 13:32 07/19/21 13:32 Labs: Abnormal Lab Results - Last 24 Hours (Table) 07/19/21 07/19/21 Range/Units 13:32 13:32 Plt Count 135 L (150-450) k/uL Sodium 135 L (137-145) mmol/L Glucose 117 H (74-99) mg/dL Thrombosis Risk Factor Assmnt - DVT/VTE Prophylaxis DVT/VTE Prophylaxis: Pharmacologic Prophylaxis ordered - Choose All That Apply Any of the Below Risk Factors Present?: Yes Each Factor Represents 1 point: Abnormal pulmonary function (COPD), Obesity (BMI >25) Each Risk Factor Represents 3 Points: Age 75 years or older Thrombosis Risk Factor Assessment Total Risk Factor Score: 5 Thrombosis Risk Factor Assessment Level: High Risk Assessment and Plan Assessment: Shortness of breath secondary to acute COPD exacerbation Chronic CHF. Ejection fraction unknown. Hypertension Hyperlipidemia Coronary artery disease history of CABG and stent placement Obstructive sleep apnea not on CPAP currently. 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 Anxiety/depression Previous history of smoking DVT prophylaxis with heparin subcu Plan: Patient will be continued Solu-Medrol 60 mg every 6 hourly and duo nebs every 4 hourly. Pulmicort inhalation twice daily was ordered. Continue with oxygen supplementation as needed. Continue with home medications and ordered BNP level. Pulmonary was consulted. Continue to follow closely. Time with Patient: Greater than 30
[2021-07-20] MEDS: FUROSEMIDE 20 MG TAB PO SCH (08:21)
[2021-07-20] MEDS: HEPARIN SODIUM,PORCINE/PF 5,000 UNIT/0.5 ML SYRINGE SQ SCH ×2 (08:21→16:44)
[2021-07-20] MEDS: EZETIMIBE 10 MG TAB PO SCH (08:21)
[2021-07-20] MEDS: atenoloL 25 MG TAB PO SCH (08:21)
[2021-07-20] MEDS: DULoxetine HCL 60 MG CAPSULE.DR PO SCH (08:21)
[2021-07-20] MEDS: BUDESONIDE 1 MG/2 ML NEBU INHALATION SCH ×2 (08:47→20:05)
[2021-07-20] MEDS: IPRATROPIUM-ALBUTEROL 3 ML NEB INHALATION SCH ×4 (08:48→20:05)
--- NOTE | 2021-07-20 13:06 | P.CNPUL ---
History of Present Illness Consult date: 07/20/21 Requesting physician: Maverick Deng Reason for consult: dyspnea, hypoxemia, pulmonary embolism, pulmonary hypertension, abnormal CXR/CT Chief complaint: Shortness of breath. History of present illness: Pulmonary consult dated 07/20/2021. 81-year-old male with a history of COPD from previous heavy tobacco use. The patient presents to the emergency department on July 19, complaining of shortness of breath, chest congestion, cough, wheezing, and chest tightness. The patient sees a physician down in the [place] area as a primary. Apparently, the patient states that he sees a lung doctor at [facility]. He could not remember the doctor's name. The patient does not use oxygen at home. He is not able to, we will medications sees on at home. He states that he was told from his lung doctor that he had COPD. He got admitted yesterday and states that everything started going bad for him over the last 2-3 days. He has a history of coronary artery disease, CHF, COPD, hyperlipidemia, hypertension, previous bypass surgery, hiatal hernia, sleep apnea syndrome, and previous heart catheterization with stent. White count 5.3, hemoglobin 15.4, hematocrit 44.1, and platelet count 135,000. PT, INR, and PTT are normal. Sodium 135, potassium 4.7, chlorides 105, CO2 22, anion gap 8, BUN 17, and creatinine 0.82. The chest x-ray, and my opinion is consistent with cardiome chrissie, and mild interstitial edema. Currently, the patient's on 2 L nasal cannula, and receiving saline at 75 mL an hour. Review of Systems REVIEW OF SYSTEMS: CONSTITUTIONAL: [Negative.] NEUROLOGIC: [ Negative.] HEENT: [ Negative.] CARDIAC: [Negative.] PULMONARY: Shortness of breath, cough, wheezing, chest tightness, with minimal phlegm production. GI: [Negative.] : [Negative.] RHEUMATOLOGIC: [ Negative.] IMMUNOLOGIC: [ Negative.] ENDOCRINE: [Negative. ] DERMATOLOGIC: [Negative.] Past Medical History Past Medical History: Coronary Artery Disease (CAD), Heart Failure, COPD, Hyperlipidemia, Hypertension, Sleep Apnea/CPAP/BIPAP Additional Past Medical History / Comment(s): COPD, obesity, coronary artery disease with previous bypass surgery, cataracts, hiatal hernia, obstructive sleep apnea for which the patient needs to be reevaluated for CPAP therapy. His latest sleep evaluation was done many years back. 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 LIVES WITH HIS OF 55 YEARS IN A SINGLE LEVEL HOME THAT HAS 4 [address]PS. 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 NO OUT SIDE SERVICES RECIEVED. HAS A NEBULIZER. NO SERVICE IN PAST. RETIRED FROM [employer]. THEY HAVE 1 PET DOG. Smoking Status: Former smoker Past Alcohol Use History: Occasional Additional Past Alcohol Use History / Comment(s): Pt states he quit smoking 4 years ago. Past Drug Use History: None Reported - Past Family History Father Family Medical History: Hyperlipidemia, Myocardial Infarction (SC) Additional Family Medical History / Comment(s): father and brothers(mi's in their 40's and 50's). Mother Family Medical History: CVA/TIA Additional Family Medical History / Comment(s): at age 99 3/4 from a stoke Medications and Allergies Home Medications Medication Instructions Recorded Confirmed Type Ezetimibe [Zetia] 10 mg PO DAILY 02/13/16 07/19/21 History atenoloL [Tenormin] 25 mg PO DAILY 02/13/16 07/19/21 History Nitroglycerin Sl Tabs [Nitrostat] 0.4 mg SUBLINGUAL Q5M PRN 06/22/16 07/19/21 History clonazePAM [KlonoPIN] 0.5 mg PO DAILY PRN 06/22/16 07/19/21 History Furosemide [Lasix] 20 mg PO DAILY #30 tab 06/25/16 07/19/21 Rx Clopidogrel [Plavix] 75 mg PO HS 10/20/19 07/19/21 History Rosuvastatin [Crestor] 10 mg PO HS 10/20/19 07/19/21 History Montelukast Sodium [Singulair] 10 mg PO HS 06/22/20 07/19/21 History DULoxetine HCL [Cymbalta] 60 mg PO DAILY 07/19/21 07/19/21 History Allergies Allergy/AdvReac Type Severity Reaction Status Date / Time No Known Allergies Allergy Verified 07/19/21 13:42 Physical Exam Osteopathic Statement: *. No significant issues noted on an osteopathic structural exam other than those noted in the History and Physical/Consult. Vitals: Vital Signs Temp Pulse Pulse Resp BP BP Pulse Ox 07/20/21 12:39 72 07/20/21 12:24 68 07/20/21 09:07 76 07/20/21 08:48 72 07/20/21 08:00 18 07/20/21 07:00 97.7 F 82 19 123/70 93 L 07/20/21 02:06 98.0 F 79 16 145/75 98 07/20/21 02:00 83 18 07/19/21 21:32 67 07/19/21 21:17 67 07/19/21 18:51 83 18 07/19/21 18:21 97.8 F 83 18 148/71 95 07/19/21 17:35 98.3 F 74 16 136/85 98 07/19/21 13:51 56 L 18 07/19/21 13:43 54 L 16 Intake and Output 07/19/21 07/20/21 07/20/21 22:59 06:59 14:59 Intake Total 500 400 118 Balance 500 400 118 Intake: Oral 500 400 118 Other: Voiding Method Toilet # Voids 2 Weight 97.069 kg 102.965 kg No acute distress, oriented 3. The patient has a very harsh wet cough. No sarai respiratory distress and no use of accessory muscles. The patient's on 2 L nasal cannula. HEENT examination is grossly unremarkable. Neck supple. Full range of motion. No adenopathy thyromegaly or neck vein distention. Cardiovascular examination reveals regular rhythm rate. S1-S2 normal. No S3 or S4. No discernible murmur noted. Heart sounds are distant. Heart rate 72 bpm. Lungs reveal diffuse inspiratory and expiratory wheezes and rhonchi. Breath jennifer nds are rather coarse. He coughs on forced maneuver. No crackles are appreciated. Breath sounds are equal bilaterally but diminished throughout. Abdomen soft bowel sounds are heard. No masses or tenderness. Extremities are intact. No cyanosis clubbing or edema. Skin is without rash or lesion. Neurologic examination is brief but nonfocal. Results - Laboratory Findings CBC and BMP: 07/19/21 13:32 07/19/21 13:32 PT/INR, D-dimer PT 10.3 sec (9.0-12.0) 07/19/21 13:32 INR 1.0 (<1.2) 07/19/21 13:32 Abnormal lab findings: Abnormal Labs 07/19/21 07/19/21 13:32 13:32 Plt Count 135 L Sodium 135 L Glucose 117 H - Diagnostic Findings Chest x-ray: image reviewed Assessment and Plan Assessment: Shortness of breath, likely secondary to a COPD exacerbation, although mild CHF may be a contributing factor. Probable acute purulent tracheobronchitis. History of CAD, with previous PCI and bypass grafting. History of CHF. History of hyperlipidemia. History of essential hypertension. History of sleep apnea syndrome. Obesity. Multiple other medical problems and comorbidities. Plan: Plan dated 07/20/2021. The patient is currently just on Pulmicort, and DuoNeb. We'll add formoterol 20 g to the Pulmicort. I will check a N-terminal proBNP. We'll review the patient's chest x-ray, and medications. Additional recommendations and suggestions are forthcoming. Prognosis is guarded. The patient should not be discharged today, but rather should stay another day or so. We will continue to follow and make recommendations where appropriate. Time with Patient: Greater than 30
[2021-07-20] MEDS ORDERED: guaiFENesin SYRUP 100MG/5ML 200 MG/10 ML CUP PO PRN (13:10)
[2021-07-20] MEDS: FORMOTEROL FUMARATE 20 MCG/2 ML NEBU INHALATION SCH (20:05)
[2021-07-20] MEDS: MONTELUKAST 10 MG TAB PO SCH (20:58)
[2021-07-20] MEDS: ATORVASTATIN 20 MG TAB PO SCH (20:58)
[2021-07-20] MEDS: CLOPIDOGREL 75 MG TAB PO SCH (20:58)
[2021-07-20] MEDS: DOXYCYCLINE 100 MG CAP PO SCH (20:58)
[2021-07-21] MEDS: methylPREDNISolone SOD SUCCI 125 MG/2 ML VIAL IV SCH ×3 (00:16→11:27)
[2021-07-21] MEDS: HEPARIN SODIUM,PORCINE/PF 5,000 UNIT/0.5 ML SYRINGE SQ SCH ×2 (00:16→07:53)
--- NOTE | 2021-07-21 01:28 | P.PN ---
Subjective Progress Note Date: 07/20/21 Patient is a 81-year-old male with a known history of COPD, hypertension, hyperlipidemia, coronary disease history of CABG, history of stent placement, obstructive sleep apnea not on CPAP at home, anxiety/depression previous history of smoking presented to ER with complaints of worsening shortness of breath since yesterday morning. Patient does have history of COPD and is on follow-up with pulmonary physician at [facility]. Shortness of breath appears similar to his previous COPD exacerbation and presents to ER for evaluation. Denies any complaints of chest pain.Denies any worsening leg swelling. No nausea vomiting or abdominal pain or diarrhea. Patient feels fatigued and weak. Patient does have minimal cough. No sputum production. No headache or dizziness or lightheadedness. Denies any sick contacts at home. Chest x-ray showed cardiomegaly and diffuse interstitial density. Correlate for CHF with mild pulmonary vascular congestion. Bronchitis or atypical pneumonias cannot be excluded on a clinical basis. Laboratory data showed sodium 135 potassium 4.7 chloride 105 BUN 17 and creatinine 0.82 lactic acid 7.6 Magnesium 2.2 liver enzymes are not elevated WBC 5.3 hemoglobin 15.4 and platelets 135 07/20/2021 Patient is seen and evaluated this morning and currently sitting up at the side of the bed eating lunch. Patient continues with audible wheezing and coughing spells throughout the exam. Patient denies any chest pains or palpitations. Pulmonary consulted and following. Patient continues on 2 L via NC as well and does not normally wear 02 in the outpatient setting. BNP ordered. Patient continued on breathing inhalational treatments and IV steroids. Labs: BNP 358 Review of systems: Constitutional: No reports of fatigue, fever, or chills Cardiovascular: No reports of chest pain or palpitations Respiratory: reports of shortness of breath and continued cough GI: No reports of nausea, vomiting, or diarrhea : No reports of dysuria or retention Neurovascular: No reports of weakness or numbness All medications have been reviewed Active Medications Albuterol/Ipratropium (Ipratropium-Albuterol 3 Ml Neb) 3 ml INHALATION RT-QID [facility] Last Admin: 07/20/21 12:24 Dose: 3 ml Documented by: Albuterol/Ipratropium (Ipratropium-Albuterol 3 Ml Neb) 3 ml INHALATION RT-Q4H PRN PRN Reason: Shortness Of Breath Or Wheezing Atenolol (Atenolol 25 Mg Tab) 25 mg PO DAILY [facility] Last Admin: 07/20/21 08:21 Dose: 25 mg Documented by: Atorvastatin Calcium (Atorvastatin 20 Mg Tab) 20 mg PO HS [facility] Last Admin: 07/19/21 20:18 Dose: 20 mg Documented by: Budesonide (Budesonide 1 Mg/2 Ml Nebu) 1 mg INHALATION RT-BID [facility] Last Admin: 07/20/21 08:47 Dose: 1 mg Documented by: Clonazepam (Clonazepam 0.5 Mg Tab) 0.5 mg PO DAILY PRN PRN Reason: Anxiety Clopidogrel Bisulfate (Clopidogrel 75 Mg Tab) 75 mg PO HS [facility] Last Admin: 07/19/21 20:18 Dose: 75 mg Documented by: Doxycycline Monohydrate (Doxycycline 100 Mg Cap) 100 mg PO BID [facility] Duloxetine HCl (Duloxetine Hcl 60 Mg Capsule.Dr) 60 mg PO DAILY [facility] Last Admin: 07/20/21 08:21 Dose: 60 mg Documented by: Ezetimibe (Ezetimibe 10 Mg Tab) 10 mg PO DAILY [facility] Last Admin: 07/20/21 08:21 Dose: 10 mg Documented by: Formoterol Fumarate (Formoterol Fumarate 20 Mcg/2 Ml Nebu) 20 mcg INHALATION RT-BID [facility] Furosemide (Furosemide 20 Mg Tab) 20 mg PO DAILY [facility] Last Admin: 07/20/21 08:21 Dose: 20 mg Documented by: Guaifenesin (Guaifenesin Syrup 100mg/5ml 200 Mg/10 Ml Cup) 200 mg PO Q6HR PRN PRN Reason: Cough Heparin Sodium (Porcine) (Heparin Sodium,Porcine/Pf 5,000 Unit/0.5 Ml Syringe) 5,000 unit SQ Q8HR [facility] Last Admin: 07/20/21 08:21 Dose: 5,000 unit Documented by: Methylprednisolone Sodium Succinate (Methylprednisolone Sod Succi 125 Mg/2 Ml Vial) 60 mg IV Q6HR [facility] Last Admin: 07/20/21 12:37 Dose: 60 mg Documented by: Montelukast Sodium (Montelukast 10 Mg Tab) 10 mg PO HS [facility] Last Admin: 07/19/21 20:18 Dose: 10 mg Documented by: Sodium Chloride (Sodium Chloride 0.9% Flush 10 Ml Syringe) 10 ml IV BID [facility] Last Admin: 07/20/21 12:48 Dose: 10 ml Documented by: Physical exam: Patient is sittin at the side of the bed comfortably, no acute distress, awake alert and oriented.. HEENT: Normocephalic. Neck is supple. Pupils reactive. Nostrils clear. Oral cavity is moist. Neck reveals no JVD, carotid bruits, or thyromegaly. CHEST EXAMINATION: Trachea is central. Symmetrical expansion.Bilateral diminished lung sounds with course rhonchi noted. inspiratory and expiratory wheezing noted on exam with frequent coughing spells. No accessory muscle use noted. CARDIAC: Normal S1, S2 with no gallops. No murmurs ABDOMEN: Soft. Obese. Bowel sounds normal. No organomegaly. No abdominal bruits. Extremities: reveal no edema. No clubbing or cyanosis Neurologically awake, alert, oriented x3 with well-coordinated movements. No focal deficits noted Skin: No rash or skin lesions. Psychiatric: Cooperative. Non-suicidal Musculoskeletal: No joint swelling or deformity. Normal range of motion. Assessment: Shortness of breath secondary to acute COPD exacerbation Chronic CHF. Ejection fraction unknown. Hypertension Hyperlipidemia Coronary artery disease history of CABG and stent placement Obstructive sleep apnea not on CPAP currently. 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 Anxiety/depression Previous history of smoking DVT prophylaxis with heparin subcu Plan: Patient will be continued Solu-Medrol 60 mg every 6 hourly and duo nebs every 4 hourly. Pulmicort inhalation twice daily was ordered. Continue with oxygen supplementation as needed. Patient currently maintained on 2 L via nasal cannula at 95% oxygen saturation. Discussed with nursing staff about weaning FI02 as tolerated. Will add robitussin for the cough. Patient on oral Doxycycline as well. Pulmonary following and will continue to observe closely for another 24 hours and reevaluate in the morning. Continue with home medications. Continue to follow closely. Possible discharge in 24 hours. Objective - Vital Signs Vital signs: Vital Signs Temp 97.7 F 07/20/21 07:00 Pulse 72 07/20/21 12:39 Resp 18 07/20/21 08:00 BP 123/70 07/20/21 07:00 Pulse Ox 93 L 07/20/21 07:00 Intake & Output 07/19/21 07/20/21 07/20/21 18:59 06:59 18:59 Intake Total 900 118 Balance 900 118 Weight 97.069 kg 102.965 kg Intake: Oral 900 118 Other: Voiding Method Toilet # Voids 2 - Labs CBC & Chem 7: 07/19/21 13:32 07/19/21 13:32 Labs: Abnormal Lab Results - Last 24 Hours (Table) 07/19/21 07/19/21 Range/Units 13:32 13:32 Plt Count 135 L (150-450) k/uL Sodium 135 L (137-145) mmol/L Glucose 117 H (74-99) mg/dL
[2021-07-21] MEDS: EZETIMIBE 10 MG TAB PO SCH (07:52)
[2021-07-21] MEDS: DOXYCYCLINE 100 MG CAP PO SCH (07:52)
[2021-07-21] MEDS: atenoloL 25 MG TAB PO SCH (07:52)
[2021-07-21] MEDS: FUROSEMIDE 20 MG TAB PO SCH (07:52)
[2021-07-21] MEDS: DULoxetine HCL 60 MG CAPSULE.DR PO SCH (07:54)
[2021-07-21 08:53] VITALS: BP 126/68; TEMP 98
[2021-07-21] MEDS: BUDESONIDE 1 MG/2 ML NEBU INHALATION SCH (08:58)
[2021-07-21] MEDS: FORMOTEROL FUMARATE 20 MCG/2 ML NEBU INHALATION SCH (08:58)
[2021-07-21] MEDS: IPRATROPIUM-ALBUTEROL 3 ML NEB INHALATION SCH ×2 (08:58→11:44)
[2021-07-21 09:22] VITALS: PULSE 80
[2021-07-21 09:26] VITALS: RESP 17
--- NOTE | 2021-07-21 14:51 | P.PN ---
Subjective Progress Note Date: 07/21/21 Principal diagnosis: COPD exacerbation. Pulmonary consult dated 07/20/2021. 81-year-old male with a history of COPD from previous heavy tobacco use. The patient presents to the emergency department on July 19, complaining of shortness of breath, chest congestion, cough, wheezing, and chest tightness. The patient sees a physician down in the [place] area as a primary. Apparently, the patient states that he sees a lung doctor at [facility]. He could not remember the doctor's name. The patient does not use oxygen at home. He is not able to, we will medications sees on at home. He states that he was told from his lung doctor that he had COPD. He got admitted yesterday and states that everything started going bad for him over the last 2-3 days. He has a history of coronary artery disease, CHF, COPD, hyperlipidemia, hypertension, previous bypass surgery, hiatal hernia, sleep apnea syndrome, and previous heart catheterization with stent. White count 5.3, hemoglobin 15.4, hematocrit 44.1, and platelet count 135,000. PT, INR, and PTT are normal. S odium 135, potassium 4.7, chlorides 105, CO2 22, anion gap 8, BUN 17, and creatinine 0.82. The chest x-ray, and my opinion is consistent with cardiomegaly, and mild interstitial edema. Currently, the patient's on 2 L nasal cannula, and receiving saline at 75 mL an hour. Progress note dated 07/21/2021. 81-year-old male, seen yesterday in consultation. The patient was admitted with increasing shortness of breath, secondary to a COPD exacerbation. The patient apparently has seen a lung doctor previously at [facility]. He could not remember the physician's name. Currently, he's feeling much better. His breathing is much improved. He has a history of CAD, CHF, COPD, hyperlipidemia, hypertension, CABG, hiatal hernia, sleep apnea syndrome, and cardiac catheterization with stent placement. Currently, he's on room air. His breathing is much improved. No new labs today to note. Objective - Vital Signs Vital signs: Vital Signs Temp 98.0 F 07/21/21 07:00 Pulse 80 07/21/21 11:57 Resp 17 07/21/21 08:00 BP 126/68 07/21/21 07:00 Pulse Ox 95 07/21/21 07:00 Intake & Output 07/20/21 07/21/21 07/21/21 18:59 06:59 18:59 Intake Total 236 800 500 Balance 236 800 500 Weight 103.6 kg Intake: Oral 236 800 500 Other: Voiding Method Toilet # Voids 3 1 - Exam No acute distress, oriented 3. The patient appears be much better today than yesterday. Much less short of breath. Currently not on any oxygen. HEENT examination is grossly unremarkable. Neck supple. Full range of motion. No adenopathy thyromegaly or neck vein distention. Cardiovascular examination reveals regular rhythm rate. S1-S2 normal. No S3 or S4. No discernible murmur noted. Heart sounds are distant. Heart rate 80 bpm. Lungs reveal improved bilateral breath sounds. Mild to moderate scattered rhonchi and wheezes. Breath sounds are better today than they were yesterday. No crackles. There is prolongation on forced maneuver. Abdomen soft bowel sounds are heard. No masses or tenderness. Extremities are intact. No cyanosis clubbing or edema. Skin is without rash or lesion. Neurologic examination is brief but nonfocal. - Labs CBC & Chem 7: 07/19/21 13:32 07/19/21 13:32 Assessment and Plan Assessment: Shortness of breath, likely secondary to a COPD exacerbation, although mild CHF may be a contributing factor. Probable acute purulent tracheobronchitis. History of CAD, with previous PCI and bypass grafting. History of CHF. History of hyperlipidemia. History of essential hypertension. History of sleep apnea syndrome. Obesity. Multiple other medical problems and comorbidities. Plan: Plan dated 07/20/2021. The patient is currently just on Pulmicort, and DuoNeb. We'll add formoterol 20 g to the Pulmicort. I will check a N-terminal proBNP. We'll review the jason ent's chest x-ray, and medications. Additional recommendations and suggestions are forthcoming. Prognosis is guarded. The patient should not be discharged today, but rather should stay another day or so. We will continue to follow and make recommendations where appropriate. Plan dated 07/21/2021. The patient's currently on appropriate medications including Pulmicort, formoterol, albuterol sulfate, and ipratropium bromide, and corticosteroids. The patient could be considered for possible discharge in the near future. I asked him to come see me in the office post discharge, so we can do PFTs. Prognosis is guarded. He should be discharged home on the above medications, plus a, prednisone burst and taper. Time with Patient: Less than 30
--- NOTE | 2021-07-27 03:35 | P.DS ---
Providers Date of admission: 07/19/21 15:38 Expected date of discharge: 07/21/21 Attending physician: Maverick Deng Consults: 07/19/21 15:19 Consult Physician Routine Consulting Provider: Jesse Gomez Consult Reason/Comments: dyspnea Do you want consulting provider notified?: Yes Primary care physician: Doretha Rose [facility] Course: Final Diagnosis Shortness of breath secondary to acute COPD exacerbation Chronic CHF. Ejection fraction unknown. Hypertension Hyperlipidemia Coronary artery disease history of CABG and stent placement Obstructive sleep apnea not on CPAP currently. 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 Anxiety/depression Previous history of smoking DVT prophylaxis Discharge disposition Patient is being discharged in a stable condition with guarded prognosis to home. Patient will follow-up with Dr. Rose in the outpatient setting upon discharge. Patient is to follow-up with pulmonary in the outpatient setting . Patient to continue with prednisone taper and oral doxycycline to complete the course. Total time taken is greater than 35 minutes. Hospital course Patient is a 81-year-old male with a known history of COPD, hypertension, hyperlipidemia, coronary disease history of CABG, history of stent placement, obstructive sleep apnea not on CPAP at home, anxiety/depression previous history of smoking presented to ER with complaints of worsening shortness of breath since yesterday morning. Patient does have history of COPD and is on follow-up with pulmonary physician at [facility]. Shortness of breath appears similar to his previous COPD exacerbation and presents to ER for evaluation. Denies any complaints of chest pain.Denies any worsening leg swelling. No nausea vomiting or abdominal pain or diarrhea. Patient feels fatigued and weak. Patient does have minimal cough. No sputum production. No headache or dizziness or lightheadedness. Denies any sick contacts at home. Chest x-ray showed cardiomegaly and diffuse interstitial density. Correlate for CHF with mild pulmonary vascular congestion. Bronchitis or atypical pneumonias cannot be excluded on a clinical basis. Laboratory data showed sodium 135 potassium 4.7 chloride 105 BUN 17 and creatinine 0.82 lactic acid 7.6 Magnesium 2.2 liver enzymes are not elevated WBC 5.3 hemoglobin 15.4 and platelets 135 07/20/2021 Patient is seen and evaluated this morning and currently sitting up at the side of the bed eating lunch. Patient continues with audible wheezing and coughing spells throughout the exam. Patient denies any chest pains or palpitations. Pulmonary consulted and following. Patient continues on 2 L via NC as well and does not normally wear 02 in the outpatient setting. BNP ordered. Patient continued on breathing inhalational treatments and IV steroids. Labs: BNP 358 07/21/2021 Patient is seen in follow up this morning feeling much better and requesting to go home. Patient was evaluated by pulmonary and recommending outpatient follow up on discharge. Patient will continue on prednisone taper on discharge. Continue breathing inhalational treatments and inhalers as prescribed. Currently no reports of chest pain, worsening shortness of breath, or palpitations. Patient is afebrile. No reports of nausea or vomiting and patient is tolerating diet. Patient will be discharged home today. Patient is sitting up in the bed comfortably, no acute distress, awake alert and oriented.. HEENT: Normocephalic. Neck is supple. Pupils reactive. Nostrils clear. Oral cavity is moist. Neck reveals no JVD, carotid bruits, or thyromegaly. CHEST EXAMINATION: Trachea is central. Symmetrical expansion. Diminished breath sounds bilaterally with some mild wheezing noted on expiration. CARDIAC: Normal S1, S2 with no gallops. No murmurs ABDOMEN: Soft. Bowel sounds normal. No organomegaly. No abdominal bruits. Extremities: reveal no edema. No clubbing or cyanosis Neurologically awake, alert, oriented x3 with well-coordinated movements. No focal deficits noted Skin: No rash or skin lesions. Psychiatric: Cooperative. Non-suicidal Musculoskeletal: No joint swelling or deformity. Normal range of motion. Please refer to medication reconciliation sheet for a list of medications. Patient Condition at Discharge: Stable Plan - Discharge Summary New Discharge Prescriptions: New Ipratropium-Albuterol Nebulize [Duoneb 0.5 mg-3 mg/3 ml Soln] 3 ml INHALATION RT-QID 30 Days #120 ml predniSONE 10 mg PO DIRECTED #30 tab Budesonide [Pulmicort] 1 mg INHALATION RT-BID 30 Days #30 ml Doxycycline [Vibramycin] 100 mg PO BID 3 Days #6 cap Ipratropium-Albuterol Nebulize [Duoneb 0.5 mg-3 mg/3 ml Soln] 3 ml INHALATION RT-Q4H PRN ml PRN Reason: Shortness Of Breath Or Wheezing guaiFENesin SYRUP 100MG/5ML [Robitussin] 200 mg PO Q6HR PRN #100 ml PRN Reason: Cough Continue atenoloL [Tenormin] 25 mg PO DAILY Ezetimibe [Zetia] 10 mg PO DAILY clonazePAM [KlonoPIN] 0.5 mg PO DAILY PRN PRN Reason: Anxiety Nitroglycerin Sl Tabs [Nitrostat] 0.4 mg SUBLINGUAL Q5M PRN PRN Reason: Chest Pain Furosemide [Lasix] 20 mg PO DAILY #30 tab Clopidogrel [Plavix] 75 mg PO HS Rosuvastatin [Crestor] 10 mg PO HS Montelukast Sodium [Singulair] 10 mg PO HS DULoxetine HCL [Cymbalta] 60 mg PO DAILY Discharge Medication List Ezetimibe [Zetia] 10 mg PO DAILY 02/13/16 [History] atenoloL [Tenormin] 25 mg PO DAILY 02/13/16 [History] Nitroglycerin Sl Tabs [Nitrostat] 0.4 mg SUBLINGUAL Q5M PRN 06/22/16 [History] clonazePAM [KlonoPIN] 0.5 mg PO DAILY PRN 06/22/16 [History] Furosemide [Lasix] 20 mg PO DAILY #30 tab 06/25/16 [Rx] Clopidogrel [Plavix] 75 mg PO HS 10/20/19 [History] Rosuvastatin [Crestor] 10 mg PO HS 10/20/19 [History] Montelukast Sodium [Singulair] 10 mg PO HS 06/22/20 [History] DULoxetine HCL [Cymbalta] 60 mg PO DAILY 07/19/21 [History] Budesonide [Pulmicort] 1 mg INHALATION RT-BID 30 Days #30 ml 07/21/21 [Rx] Doxycycline [Vibramycin] 100 mg PO BID 3 Days #6 cap 07/21/21 [Rx] Ipratropium-Albuterol Nebulize [Duoneb 0.5 mg-3 mg/3 ml Soln] 3 ml INHALATION RT-Q4H PRN ml 07/21/21 [Rx] Ipratropium-Albuterol Nebulize [Duoneb 0.5 mg-3 mg/3 ml Soln] 3 ml INHALATION RT-QID 30 Days #120 ml 07/21/21 [Rx] guaiFENesin SYRUP 100MG/5ML [Robitussin] 200 mg PO Q6HR PRN #100 ml 07/21/21 [Rx] predniSONE 10 mg PO DIRECTED #30 tab 07/21/21 [Rx] Follow up Appointment(s)/Referral(s): Doretha Rose MD [Primary Care Provider] - 1-2 days Jesse Gomez DO [Doctor of Osteopathic Medicine] - 1 Week Patient Instructions/Handouts: COPD (Chronic Obstructive Pulmonary Disease) (GEN), Shortness of Breath (GEN) Activity/Diet/Wound Care/Special Instructions: Activity Limited until follow-up Follow-up with primary care provider on discharge follow up pulmonary outpatient in 1-2 weeks Continue medications as prescribed Continue with breathing inhalational treatments Discharge Disposition: HOME SELF-CARE
== END 2021-07-21 15:08 | disposition home or self-care (01) ==
LOC: EC 12:48 → 6NMEDSUR 15:38
PROVIDERS: ADMIT Internal Medicine; ATTEND Internal Medicine
DX: J44.1 Chronic obstructive pulmonary disease with (acute) exacerbation (principal); I25.10 Atherosclerotic heart disease of native coronary artery without angina pectoris; I11.0 Hypertensive heart disease with heart failure; I50.9 Heart failure, unspecified; Z20.822 Contact with and (suspected) exposure to COVID-19; R06.02 Shortness of breath; G47.33 Obstructive sleep apnea (adult) (pediatric); E78.5 Hyperlipidemia, unspecified; E66.9 Obesity, unspecified; Z68.34 Body mass index [BMI] 34.0-34.9, adult; F32.9 Major depressive disorder, single episode, unspecified; F41.9 Anxiety disorder, unspecified; Z98.41 Cataract extraction status, right eye; Z98.42 Cataract extraction status, left eye; Z96.1 Presence of intraocular lens; K44.9 Diaphragmatic hernia without obstruction or gangrene; Z79.899 Other long term (current) drug therapy; Z87.891 Personal history of nicotine dependence; Z95.1 Presence of aortocoronary bypass graft; Z95.5 Presence of coronary angioplasty implant and graft; Z90.49 Acquired absence of other specified parts of digestive tract; Z82.49 Family history of ischemic heart disease and other diseases of the circulatory system; Z82.3 Family history of stroke
CPT/HCPCS: 99285; 96376 ×2; 96372; 96374; 36415; 94640 ×5; 93005; 83880; 80053; 83605; 83735; 85025; 85610; 85730; 87635; 71046; G0378 ×3; J2930 ×3; J1644 ×2

== ENCOUNTER 2021-07-30 08:52 | Inpatient (IN) | payer MEDICARE ==
[2021-07-30] MEDS ORDERED: methylPREDNISolone SOD SUCCI 125 MG/2 ML VIAL IV STA (09:00)
--- NOTE | 2021-07-30 09:05 | ED ---
SOB HPI - General Chief Complaint: Shortness of Breath Stated Complaint: FER Time Seen by Provider: 07/30/21 08:52 Source: patient Mode of arrival: EMS Limitations: no limitations - History of Present Illness Initial Comments: 81-year-old male who was recently discharged from [facility] history of COPD who presents with complaints of shortness of breath this morning no fevers chills nausea vomiting sweats she's had a slight cough. He has a chronic cough normally. He apparently was to be on home oxygen but has not gotten the equipment yet. He was given an nebulizer treatment in route by EMS personnel he did get some improvement. No other current complaints or modifying factors MD Complaint: shortness of breath, cough - Related Data Home Medications Medication Instructions Recorded Confirmed Ezetimibe [Zetia] 10 mg PO DAILY 02/13/16 07/30/21 atenoloL [Tenormin] 25 mg PO DAILY 02/13/16 07/30/21 Nitroglycerin Sl Tabs [Nitrostat] 0.4 mg SUBLINGUAL Q5M PRN 06/22/16 07/30/21 clonazePAM [KlonoPIN] 0.5 mg PO DAILY PRN 06/22/16 07/30/21 Clopidogrel [Plavix] 75 mg PO HS 10/20/19 07/30/21 Rosuvastatin [Crestor] 10 mg PO HS 10/20/19 07/30/21 Montelukast Sodium [Singulair] 10 mg PO HS 06/22/20 07/30/21 DULoxetine HCL [Cymbalta] 60 mg PO DAILY 07/19/21 07/30/21 polyethylene glycoL 3350 [Miralax] 2 tbsp PO DAILY 07/30/21 07/30/21 Previous Rx's Medication Instructions Recorded Furosemide [Lasix] 20 mg PO DAILY #30 tab 06/25/16 Budesonide [Pulmicort] 1 mg INHALATION RT-BID 30 Days #30 07/21/21 ml Ipratropium-Albuterol Nebulize 3 ml INHALATION RT-Q4H PRN ml 07/21/21 [Duoneb 0.5 mg-3 mg/3 ml Soln] Ipratropium-Albuterol Nebulize 3 ml INHALATION RT-QID 30 Days 07/21/21 [Duoneb 0.5 mg-3 mg/3 ml Soln] #120 ml guaiFENesin SYRUP 100MG/5ML 200 mg PO Q6HR PRN #100 ml 07/21/21 [Robitussin] Allergies Allergy/AdvReac Type Severity Reaction Status Date / Time No Known Allergies Allergy Verified 07/30/21 10:37 Review of Systems ROS Statement: Those systems with pertinent positive or pertinent negative responses have been documented in the HPI. ROS Other: All systems not noted in ROS Statement are negative. Past Medical History Past Medical History: Coronary Artery Disease (CAD), Heart Failure, COPD, Hyperlipidemia, Hypertension, Sleep Apnea/CPAP/BIPAP Additional Past Medical History / Comment(s): COPD, obesity, coronary artery disease with previous bypass surgery, cataracts, hiatal hernia, obstructive sleep apnea for which the patient needs to be reevaluated for CPAP therapy. His latest sleep evaluation was done many years back. History of Any Multi-Drug Resistant Organisms: None Reported Past Surgical History: Adenoidectomy, Appendectomy, Back Surgery, Coronary Byp ass/CABG, Heart Catheterization With Stent, Orthopedic Surgery, Tonsillectomy Additional Past Surgical History / Comment(s): parotid gland removed, non- malignant tumor on vocal cords that has been removed once and then laser treated-GETS IT CHECKED EVERY 6-12 MONTHS, TRIPLE VESSEL CABG 1992, hip surgery Past Anesthesia/Blood Transfusion Reactions: No Reported Reaction Date of Last Stent Placement:: 2016 Past Psychological History: Anxiety, Depression Smoking Status: Former smoker Past Alcohol Use History: Occasional Past Drug Use History: None Reported - Past Family History Father Family Medical History: Hyperlipidemia, Myocardial Infarction (OR) Additional Family Medical History / Comment(s): father and brothers(mi's in their 40's and 50's). Mother Family Medical History: CVA/TIA Additional Family Medical History / Comment(s): at age 99 3/4 from a stoke General Exam - General Exam Comments Initial Comments: This a well-developed well-nourished awake alert oriented 3 male Limitations: no limitations General appearance: alert, anxious Head exam: Present: atraumatic, normocephalic, normal inspection Eye exam: Present: normal appearance, PERRL, EOMI. Absent: scleral icterus, conjunctival injection, periorbital swelling ENT exam: Present: normal exam, mucous membranes moist Neck exam: Present: normal inspection. Absent: tenderness, meningismus, lymphadenopathy Respiratory exam: Present: decreased breath sounds. Absent: respiratory distress, wheezes, rales, rhonchi, stridor Cardiovascular Exam: Present: regular rate, normal rhythm, normal heart sounds. Absent: systolic murmur, diastolic murmur, rubs, gallop, clicks GI/Abdominal exam: Present: soft, normal bowel sounds. Absent: distended, tenderness, guarding, rebound, rigid Extremities exam: Present: normal inspection, full ROM, normal capillary refill. Absent: tenderness, pedal edema, joint swelling, calf tenderness Back exam: Present: normal inspection Neurological exam: Present: alert, oriented X3, CN II-XII intact Psychiatric exam: Present: normal affect, normal mood Skin exam: Present: warm, dry, intact, normal color. Absent: rash Course Vital Signs 07/30/21 07/30/21 07/30/21 08:59 09:49 11:10 Temperature 103.6 F H 101.7 F H Pulse Rate 97 100 86 Respiratory 25 H 25 H 24 Rate Blood Pressure 137/71 142/75 139/67 O2 Sat by Pulse 94 L 96 95 Oximetry 07/30/21 12:03 Temperature 99.0 F Pulse Rate 81 Respiratory 18 Rate Blood Pressure 120/88 O2 Sat by Pulse 97 Oximetry - Reevaluation(s) Reevaluation #1: 07/30/21 12:35 Reevaluation patient finds he still demonstrating dyspnea and some diminished breath sounds with expiratory wheezing. Medical Decision Making - Medical Decision Making I did discuss findings with the patient family as well as with Dr. Deng. Patient be admitted he does demonstrate evidence of fever lower lobe pneumonia with COPD exacerbation he has leukocytosis with a left shift evidence dehydration over the lactic acid likely secondary to dehydration as opposed to the infectious process - Lab Data Result diagrams: 07/30/21 09:25 07/30/21 09:25 Lab Results 07/30/21 07/30/21 07/30/21 Range/Units 09:25 09:25 09:25 WBC 21.2 H (3.8-10.6) k/uL RBC 4.65 (4.30-5.90) m/uL Hgb 15.2 (13.0-17.5) gm/dL Hct 44.1 (39.0-53.0) % MCV 94.8 (80.0-100.0) fL MCH 32.8 (25.0-35.0) pg MCHC 34.6 (31.0-37.0) g/dL RDW 13.6 (11.5-15.5) % Plt Count 148 L (150-450) k/uL MPV 10.4 Neutrophils % 88 % Lymphocytes % 7 % Monocytes % 4 % Eosinophils % 1 % Basophils % 0 % Neutrophils # 18.6 H (1.3-7.7) k/uL Lymphocytes # 1.5 (1.0-4.8) k/uL Monocytes # 0.8 (0-1.0) k/uL Eosinophils # 0.2 (0-0.7) k/uL Basophils # 0.0 (0-0.2) k/uL PT 10.0 (9.0-12.0) sec INR 0.9 (<1.2) APTT 21.5 L (22.0-30.0) sec D-Dimer 0.85 H (<0.60) mg/L FEU Sodium 131 L (137-145) mmol/L Potassium 4.2 (3.5-5.1) mmol/L Chloride 98 (98-107) mmol/L Carbon Dioxide 27 (22-30) mmol/L Anion Gap 6 mmol/L BUN 17 (9-20) mg/dL Creatinine 0.86 (0.66-1.25) mg/dL Est GFR (CKD-EPI)AfAm >90 (>60 ml/min/1.73 sqM) Est GFR (CKD-EPI)NonAf 82 (>60 ml/min/1.73 sqM) Glucose 160 H (74-99) mg/dL Lactic Ac Sepsis Rflx Plasma Lactic Acid Ronaldo (0.7-2.0) mmol/L Calcium 8.9 (8.4-10.2) mg/dL Magnesium 1.9 (1.6-2.3) mg/dL Total Bilirubin 1.0 (0.2-1.3) mg/dL AST 23 (17-59) U/L ALT 38 (4-49) U/L Alkaline Phosphatase 97 (38-126) U/L Troponin I (0.000-0.034) ng/mL NT-Pro-B Natriuret Pep pg/mL Total Protein 6.5 (6.3-8.2) g/dL Albumin 3.8 (3.5-5.0) g/dL Coronavirus (PCR) (Not Detectd) Influenza Type A RNA (Not Detectd) Influenza Type B (PCR) (Not Detectd) 07/30/21 07/30/21 07/30/21 Range/Units 09:25 09:25 09:25 WBC (3.8-10.6) k/uL RBC (4.30-5.90) m/uL Hgb (13.0-17.5) gm/dL Hct (39.0-53.0) % MCV (80.0-100.0) fL MCH (25.0-35.0) pg MCHC (31.0-37.0) g/dL RDW (11.5-15.5) % Plt Count (150-450) k/uL MPV Neutrophils % % Lymphocytes % % Monocytes % % Eosinophils % % Basophils % % Neutrophils # (1.3-7.7) k/uL Lymphocytes # (1.0-4.8) k/uL Monocytes # (0-1.0) k/uL Eosinophils # (0-0.7) k/uL Basophils # (0-0.2) k/uL PT (9.0-12.0) sec INR (<1.2) APTT (22.0-30.0) sec D-Dimer (<0.60) mg/L FEU Sodium (137-145) mmol/L Potassium (3.5-5.1) mmol/L Chloride (98-107) mmol/L Carbon Dioxide (22-30) mmol/L Anion Gap mmol/L BUN (9-20) mg/dL Creatinine (0.66-1.25) mg/dL Est GFR (CKD-EPI)AfAm (>60 ml/min/1.73 sqM) Est GFR (CKD-EPI)NonAf (>60 ml/min/1.73 sqM) Glucose (74-99) mg/dL Lactic Ac Sepsis Rflx Plasma Lactic Acid Ronaldo 2.1 H* (0.7-2.0) mmol/L Calcium (8.4-10.2) mg/dL Magnesium (1.6-2.3) mg/dL Total Bilirubin (0.2-1.3) mg/dL AST (17-59) U/L ALT (4-49) U/L Alkaline Phosphatase (38-126) U/L Troponin I 0.018 (0.000-0.034) ng/mL NT-Pro-B Natriuret Pep 127 pg/mL Total Protein (6.3-8.2) g/dL Albumin (3.5-5.0) g/dL Coronavirus (PCR) (Not Detectd) Influenza Type A RNA (Not Detectd) Influenza Type B (PCR) (Not Detectd) 07/30/21 07/30/21 07/30/21 Range/Units 09:25 09:25 09:56 WBC (3.8-10.6) k/uL RBC (4.30-5.90) m/uL Hgb (13.0-17.5) gm/dL Hct (39.0-53.0) % MCV (80.0-100.0) fL MCH (25.0-35.0) pg MCHC (31.0-37.0) g/dL RDW (11.5-15.5) % Plt Count (150-450) k/uL MPV Neutrophils % % Lymphocytes % % Monocytes % % Eosinophils % % Basophils % % Neutrophils # (1.3-7.7) k/uL Lymphocytes # (1.0-4.8) k/uL Monocytes # (0-1.0) k/uL Eosinophils # (0-0.7) k/uL Basophils # (0-0.2) k/uL PT (9.0-12.0) sec INR (<1.2) APTT (22.0-30.0) sec D-Dimer (<0.60) mg/L FEU Sodium (137-145) mmol/L Potassium (3.5-5.1) mmol/L Chloride (98-107) mmol/L Carbon Dioxide (22-30) mmol/L Anion Gap mmol/L BUN (9-20) mg/dL Creatinine (0.66-1.25) mg/dL Est GFR (CKD-EPI)AfAm (>60 ml/min/1.73 sqM) Est GFR (CKD-EPI)NonAf (>60 ml/min/1.73 sqM) Glucose (74-99) mg/dL Lactic Ac Sepsis Rflx Y Plasma Lactic Acid Ronaldo (0.7-2.0) mmol/L Calcium (8.4-10.2) mg/dL Magnesium (1.6-2.3) mg/dL Total Bilirubin (0.2-1.3) mg/dL AST (17-59) U/L ALT (4-49) U/L Alkaline Phosphatase (38-126) U/L Troponin I (0.000-0.034) ng/mL NT-Pro-B Natriuret Pep pg/mL Total Protein (6.3-8.2) g/dL Albumin (3.5-5.0) g/dL Coronavirus (PCR) Not Detected (Not Detectd) Influenza Type A RNA Not Detected (Not Detectd) Influenza Type B (PCR) Not Detected (Not Detectd) - EKG Data -: EKG Interpreted by Me EKG shows normal: sinus rhythm EKG Comments: Sinus rhythm at 97 150 QRS duration 142 QT/QTC 380/482 evidence a right bundle-branch block pattern - Radiology Data Radiology results: report reviewed (Imaging reviewed CT negative for PE however evidence of posterior basilar infiltrates.), image reviewed Critical Care Time Critical Care Time: Yes Total Critical Care Time: 37 Critical Care Time: Critical care time includes initial presentation with history physical labs x- rays also reevaluation the patient discussed with paramedics upon arrival discussed with patient family regarding findings admission orders documentation the above also discussion with the admitting physician and review of old charting Disposition Clinical Impression: Acute exacerbation of chronic obstructive pulmonary disease, Pneumonia, Febrile illness, acute, Lactic acidosis Disposition: ADMITTED IP TO THIS HOSP Condition: Fair Referrals: Doretha Rose MD [Primary Care Provider] - 1-2 days
[2021-07-30] MEDS ORDERED: IBUPROFEN 600 MG TAB PO STA (09:22)
[2021-07-30] MEDS ORDERED: ACETAMINOPHEN TAB 500 MG TAB PO STA (09:23)
[2021-07-30 09:33] LABS: Basophils % (A) 0 %; Eosinophils # (A) 0.2 k/uL (0-0.7); Eosinophils % (A) 1 %; HCT 44.1 % (39.0-53.0); HGB 15.2 gm/dL (13.0-17.5); Lymphocytes # (A) 1.5 k/uL (1.0-4.8); Lymphocytes % (A) 7 %; MCH 32.8 pg (25.0-35.0); MCHC 34.6 g/dL (31.0-37.0); MCV 94.8 fL (80.0-100.0); Mean Platelet Volume 10.4; Monocytes # (A) 0.8 k/uL (0-1.0); Monocytes % (A) 4 %; Neutrophils # (A) 18.6 k/uL (1.3-7.7); Neutrophils % (A) 88 %; Platelet Count 148 k/uL (150-450); RBC 4.65 m/uL (4.30-5.90); RDW 13.6 % (11.5-15.5); WBC 21.2 k/uL (3.8-10.6)
[2021-07-30 09:45] LABS: ALT 38 U/L (4-49); AST 23 U/L (17-59); African American GFR (CKD) >90 (>60 ml/min/1.73 sqM); Albumin 3.8 g/dL (3.5-5.0); Alkaline Phosphatase 97 U/L (38-126); Anion Gap 6 mmol/L; Blood Urea Nitrogen 17 mg/dL (9-20); Calcium 8.9 mg/dL (8.4-10.2); Carbon Dioxide 27 mmol/L (22-30); Chloride 98 mmol/L (98-107); Glucose 160 mg/dL (74-99); Magnesium 1.9 mg/dL (1.6-2.3); Non-African American GFR(CKD) 82 (>60 ml/min/1.73 sqM); Potassium 4.2 mmol/L (3.5-5.1); Sodium 131 mmol/L (137-145); Total Protein 6.5 g/dL (6.3-8.2)
[2021-07-30 09:48] LABS: INR 0.9 (<1.2)
[2021-07-30 09:55] LABS: Partial Thromboplastin Time 21.5 sec (22.0-30.0)
--- NOTE | 2021-07-30 09:58 | XR ---
EXAMINATION TYPE: XR chest 2V DATE OF EXAM: 07/30/2021 COMPARISON: 03/18/2021 INDICATION: Difficulty breathing TECHNIQUE: Frontal and lateral views of the chest are obtained. FINDINGS: The heart size is mildly prominent. The pulmonary vasculature is normal. Some mild increased lung markings are present. This is better visualized on lateral projection multiple sclerosis nurse iorly. Follow-up is recommended. IMPRESSION: 1. Mild increased lung markings diffusely. This is best visualized posteriorly. Follow-up exams are r ecommended.
[2021-07-30] MEDS ORDERED: cefTRIAXone IN SWFI 1,000 MG/10 ML SYRINGE IVP STA (10:55)
--- NOTE | 2021-07-30 11:25 | CT ---
CT CHEST FOR PULMONARY EMBOLISM. EXAMINATION TYPE: CT angio chest DATE OF EXAM: 07/30/2021 INDICATION: FER, elev. D dimer CT DLP: 478.2 mGycm, Automated exposure control for dose reduction was used. CONTRAST: Patient injected with 100 mL of Isovue 370. COMPARISON: 09/09/2020 TECHNIQUE: CT of the chest is performed on a spiral scan at 2 mm thick sections. Study is performed with intravenous contrast timed for evaluation for pulmonary embolism. This will limit additional po rtions of the evaluation. 3-D MIP images reconstructed by the technologist are reviewed on the compu ter in the coronal and sagittal planes. FINDINGS: No persistent filling defects are evident to suggest an acute pulmonary embolism. No mediastinal or hilar adenopathy enlarged by CT criteria is evident. The ascending aorta diameter at the level of the main pulmonary artery is 3.5 cm. The main pulmonary artery diameter at the bifur cation is 2.9 cm. Some coronary artery calcification is likely present. There are scattered infiltrates through the posterior mid and lower lung chaudhry. Findings are nonspec ific. Correlate for atypical pneumonia. Limited CT section through the upper abdomen are unremarkable. IMPRESSIONS: 1. Scattered increased lung markings mid and lower lung chaudhry posteriorly. Correlate for atypical pn eumonia. Pulmonary edema would be within the differential. 2. No acute pulmonary embolism identified.
[2021-07-30] MEDS ORDERED: PNEUMONIA PROTOCOL UTILIZED 1 EACH MISC PO PRN (12:38)
[2021-07-30] MEDS ORDERED: AZITHROMYCIN 500 MG in SODIUM CHLORIDE 0.9% 250 ML IVPB STA (12:38)
[2021-07-30] MEDS ORDERED: NITROGLYCERIN SL TABS 0.4 MG TAB SUBLINGUAL PRN (12:43)
[2021-07-30] MEDS ORDERED: guaiFENesin SYRUP 100MG/5ML 200 MG/10 ML CUP PO PRN (12:43)
[2021-07-30] MEDS: SODIUM CHLORIDE 0.9% 1,000 ML IV SCH ×2 (13:29→20:49)
[2021-07-30] MEDS: IPRATROPIUM-ALBUTEROL 3 ML NEB INHALATION SCH ×3 (17:06→23:22)
[2021-07-30] MEDS: clonazePAM 0.5 MG TAB PO PRN (17:32)
[2021-07-30] MEDS: BUDESONIDE 1 MG/2 ML NEBU INHALATION SCH (20:10)
[2021-07-30] MEDS: MONTELUKAST 10 MG TAB PO SCH (20:48)
[2021-07-30] MEDS: CLOPIDOGREL 75 MG TAB PO SCH (20:48)
[2021-07-30] MEDS: ATORVASTATIN 20 MG TAB PO SCH (20:48)
[2021-07-30] MEDS: methylPREDNISolone SOD SUCCI 125 MG/2 ML VIAL IV SCH (20:49)
--- NOTE | 2021-07-30 23:59 | P.HPIM ---
History of Present Illness H&P Date: 07/30/21 Chief Complaint: Shortness of breath Patient is a 81-year-old male with a known history of COPD, obstructive sleep apnea, coronary disease history of CABG, history of stent placement, hypertension, hyperlipidemia, anxiety/depression previous history of smoking presents to ER with complaints of worsening shortness of breath since morning.. Denied any chest pain. No complaints of fever or chills. Does have cough without sputum production. No nausea vomiting abdominal pain or diarrhea. Denies recent illnesses. EMS was called and patient was given DuoNeb breathing treatment. Patient did have some improvement. No sick contacts at home. Patient is fully vaccinated including both are short. Chest x-ray showed mild increase in lung markings diffusely. This is best visualized posteriorly. CT angio of the chest was done due to elevated D-dimer level. Showed scattered increase in lung markings mid and lower lung chaudhry posteriorly. Correlate for atypical pneumonia. Pulmonary edema would be within differential No acute pulmonary embolism noted. Laboratory showed WBC 21.2 hemoglobin 15.1 platelets 148 D-dimer is 0.85 Sodium 131 potassium 4.2 chloride 98 BUN 17 and creatinine 0.86 and lactic acid level is 2.1 liver enzymes are not elevated proBNP 127 and troponin 0 0.018 Influenza and coronavirus PCR not detected.T-max was 103.6 on admission. Patient was recently admitted to the hospital due to acute COPD exacerbation was discharged on 07/21/21 . Review of Systems Constitutional: Patient does have fever. No chills. Generalized weakness.. Abdomen: Patient denied nausea vomiting and diarrhea and abdominal pain. Cardiovascular: Patient denies any chest pain or short of breath no palpitations. Respiratory: Patient does have cough with SOB and Shortness of breath. Neurologic: Patient denied any numbness or tingling headache. Musculoskeletal: Patient denies any complaints of joint swelling or deformity. Skin: Negative Psychiatric: Negative Endocrine: No heat or cold intolerance. No recent weight gain. Genitourinary: No dysuria or hematuria. All other 14 point ROS negative except the above Past Medical History Past Medical History: Coronary Artery Disease (CAD), Heart Failure, COPD, Hyperlipidemia, Hypertension, Sleep Apnea/CPAP/BIPAP Additional Past Medical History / Comment(s): COPD, obesity, coronary artery disease with previous bypass surgery, cataracts, hiatal hernia, obstructive sleep apnea for which the patient needs to be reevaluated for CPAP therapy. His latest sleep evaluation was done many years back. 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 Mother Family Medical History: CVA/TIA Additional Family Medical History / Comment(s): at age 99 3/4 from a stoke Medications and Allergies Home Medications Medication Instructions Recorded Confirmed Type Ezetimibe [Zetia] 10 mg PO DAILY 02/13/16 07/30/21 History atenoloL [Tenormin] 25 mg PO DAILY 02/13/16 07/30/21 History Nitroglycerin Sl Tabs [Nitrostat] 0.4 mg SUBLINGUAL Q5M PRN 06/22/16 07/30/21 History clonazePAM [KlonoPIN] 0.5 mg PO DAILY PRN 06/22/16 07/30/21 History Furosemide [Lasix] 20 mg PO DAILY #30 tab 06/25/16 07/30/21 Rx Clopidogrel [Plavix] 75 mg PO HS 10/20/19 07/30/21 History Rosuvastatin [Crestor] 10 mg PO HS 10/20/19 07/30/21 History Montelukast Sodium [Singulair] 10 mg PO HS 06/22/20 07/30/21 History DULoxetine HCL [Cymbalta] 60 mg PO DAILY 07/19/21 07/30/21 History Budesonide [Pulmicort] 1 mg INHALATION RT-BID 30 Days #30 07/21/21 07/30/21 Rx ml Ipratropium-Albuterol Nebulize 3 ml INHALATION RT-Q4H PRN ml 07/21/21 07/30/21 Rx [Duoneb 0.5 mg-3 mg/3 ml Soln] Ipratropium-Albuterol Nebulize 3 ml INHALATION RT-QID 30 Days 07/21/21 07/30/21 Rx [Duoneb 0.5 mg-3 mg/3 ml Soln] #120 ml guaiFENesin SYRUP 100MG/5ML 200 mg PO Q6HR PRN #100 ml 07/21/21 07/30/21 Rx [Robitussin] polyethylene glycoL 3350 [Miralax] 2 tbsp PO DAILY 07/30/21 07/30/21 History Allergies Allergy/AdvReac Type Severity Reaction Status Date / Time No Known Allergies Allergy Verified 07/30/21 10:37 Physical Exam Vitals: Vital Signs Temp Pulse Resp BP Pulse Ox 07/30/21 21:00 81 16 122/77 96 07/30/21 20:30 78 07/30/21 20:13 74 07/30/21 18:00 70 20 121/66 95 07/30/21 17:15 70 07/30/21 17:08 70 07/30/21 17:00 84 20 114/69 92 L 07/30/21 16:00 81 20 140/71 93 L 07/30/21 15:00 70 20 142/69 92 L 07/30/21 12:03 99.0 F 81 18 120/88 97 07/30/21 11:10 101.7 F H 86 24 139/67 95 07/30/21 09:49 100 25 H 142/75 96 07/30/21 08:59 103.6 F H 97 25 H 137/71 94 L Intake and Output 07/30/21 07/30/21 07/30/21 06:59 14:59 22:59 Other: Weight 106.594 kg PHYSICAL EXAMINATION: Patient is lying in the bed comfortably, no acute distress, awake alert and oriented.. HEENT: Normocephalic. Neck is supple. Pupils reactive. Nostrils clear. Oral cavity is moist. Neck reveals no JVD, carotid bruits, or thyromegaly. CHEST EXAMINATION: Trachea is central. Symmetrical expansion. Bilateral diffuse wheezing rhonchi and nonlabored breathing.. CARDIAC: Normal S1, S2 with no gallops. No murmurs ABDOMEN: Soft. Bowel sounds normal. No organomegaly. No abdominal bruits. Extremities: reveal no edema. No clubbing or cyanosis Neurologically awake, alert, oriented x3 with well-coordinated movements. No focal deficits noted Skin: No rash or skin lesions. Psychiatric: Cooperative. Nonsuicidal Musculoskeletal: No joint swelling or deformity. Normal range of motion. Results CBC & Chem 7: 07/30/21 09:25 07/30/21 09:25 Labs: Abnormal Lab Results - Last 24 Hours (Table) 07/30/21 07/30/21 07/30/21 Range/Units 09:25 09:25 09:25 WBC 21.2 H (3.8-10.6) k/uL Plt Count 148 L (150-450) k/uL Neutrophils # 18.6 H (1.3-7.7) k/uL APTT 21.5 L (22.0-30.0) sec D-Dimer 0.85 H (<0.60) mg/L FEU Sodium 131 L (137-145) mmol/L Glucose 160 H (74-99) mg/dL Plasma Lactic Acid Ronaldo (0.7-2.0) mmol/L 07/30/21 07/30/21 07/30/21 Range/Units 09:25 14:03 17:55 WBC (3.8-10.6) k/uL Plt Count (150-450) k/uL Neutrophils # (1.3-7.7) k/uL APTT (22.0-30.0) sec D-Dimer (<0.60) mg/L FEU Sodium (137-145) mmol/L Glucose (74-99) mg/dL Plasma Lactic Acid Ronaldo 2.1 H* 2.9 H* 2.1 H* (0.7-2.0) mmol/L Thrombosis Risk Factor Assmnt - DVT/VTE Prophylaxis DVT/VTE Prophylaxis: Pharmacologic Prophylaxis ordered Assessment and Plan Assessment: Worsening shortness of breath secondary to COPD and pneumonia. Atypical pneumonia. COVID-19 PCR not detected. Sepsis secondary to above Acute COPD exacerbation Obstructive sleep apnea not on CPAP at home currently. Coronary disease history of CABG Hypertension Hyperlipidemia Anxiety/depression and previous history of smoking DVT prophylaxis Heparin subcu Plan: Patient will be continued IV hydration and antibiotics in the form of ceftriaxone and azithromycin. Continue with IV steroids duo nebs and Pulmicort. Follow-up repeat chest x-ray tomorrow. Follow-up CBC and BMP. Pulmonary will be consulted. Prognosis is guarded at this time. Time with Patient: Greater than 30
[2021-07-31] MEDS: HEPARIN SODIUM,PORCINE/PF 5,000 UNIT/0.5 ML SYRINGE SQ SCH ×3 (02:48→17:12)
[2021-07-31] MEDS: methylPREDNISolone SOD SUCCI 125 MG/2 ML VIAL IV SCH ×3 (02:48→23:44)
[2021-07-31] MEDS: IPRATROPIUM-ALBUTEROL 3 ML NEB INHALATION SCH ×5 (03:42→19:01)
[2021-07-31] MEDS: SODIUM CHLORIDE 0.9% 1,000 ML IV SCH ×2 (06:05→21:03)
--- NOTE | 2021-07-31 07:46 | XR ---
EXAMINATION TYPE: XR chest 1V DATE OF EXAM: 07/31/2021 COMPARISON: 07/30/2021 HISTORY: 81-year-old male COPD TECHNIQUE: Single frontal view of the chest is obtained. FINDINGS: Median sternotomy wires are present. Heart mild to moderately enlarged. Diffuse interstitial density. No pleural effusion. IMPRESSION: Stable exam with cardiomegaly and interstitial changes. Correlate for CHF with pulmonary vascular con gestion.
[2021-07-31 07:50] LABS: African American GFR (CKD) >90 (>60 ml/min/1.73 sqM); Anion Gap 10 mmol/L; Blood Urea Nitrogen 23 mg/dL (9-20); Carbon Dioxide 22 mmol/L (22-30); Chloride 101 mmol/L (98-107); Glucose 257 mg/dL (74-99); Non-African American GFR(CKD) 88 (>60 ml/min/1.73 sqM); Potassium 4.7 mmol/L (3.5-5.1); Sodium 133 mmol/L (137-145)
[2021-07-31] MEDS: BUDESONIDE 1 MG/2 ML NEBU INHALATION SCH ×2 (08:19→19:01)
[2021-07-31] MEDS ORDERED: FUROSEMIDE 20 MG TAB PO SCH (09:00)
[2021-07-31] MEDS: DULoxetine HCL 60 MG CAPSULE.DR PO SCH (09:42)
[2021-07-31] MEDS: atenoloL 25 MG TAB PO SCH (09:42)
[2021-07-31] MEDS: AZITHROMYCIN 500 MG TAB PO SCH (09:42)
[2021-07-31] MEDS: EZETIMIBE 10 MG TAB PO SCH (09:43)
[2021-07-31] MEDS: polyethylene glycoL 3350 17 GM POWD.PACK PO SCH (09:43)
--- NOTE | 2021-07-31 13:00 | P.CNPUL ---
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 His symptoms started on Saturday, and his fever on admission was 103.6F. He was recently discharged from the [facility]. He is currently in the process of getting home oxygen however has not gotten the equipment yet. He normally sees a optics technical officer from [facility]. He lives in [facility]. Chest x-ray the emergency department showed mild increased lung markings. He is currently on 2 L of oxygen pulse ox is 96%. Admission lab work showed evidence of leukocytosis with white blood cell, 21.2, hemoglobin was 15.2, platelet, was 148, neutrophil count was 18.6, d-dimer 0.85, sodium was 131, the rest of electrolytes and renal profile were unremarkable, he had lactic acidosis with a lactic acid it peaked at 4.7. Troponin was 0.018, proBNP was 127, LFTs were within normal limits, influenza A and B and COVID-[address] chest was completed showing scattered increased lung markings in the mid and lower lung chaudhry posteriorly, correlate for atypical pneumonia, and no evidence of acute pulmonary embolism. Started on empiric antibiotics including azithromycin and Rocephin and nebulized bronchodilators. He still has a congested cough, denies any hemoptysis or chest pain. Review of Systems All systems: negative Constitutional: Reports fever, Denies chills Eyes: denies blurred vision, denies pain Ears, nose, mouth and throat: Denies headache, Denies sore throat Cardiovascular: Denies chest pain, Denies shortness of breath Respiratory: Reports cough, Reports cough with sputum, Reports dyspnea, Reports home oxygen, Reports wheezing Gastrointestinal: Denies abdominal pain, Denies diarrhea, Denies nausea, Denies vomiting Musculoskeletal: Denies myalgias Integumentary: Denies pruritus, Denies rash Neurological: Denies numbness, Denies weakness Psychiatric: Denies anxiety, Denies depression Endocrine: Denies fatigue, Denies weight change Past Medical History Past Medical History: Coronary Artery Disease (CAD), Heart Failure, COPD, Hyperlipidemia, Hypertension, Sleep Apnea/CPAP/BIPAP Additional Past Medical History / Comment(s): COPD, obesity, coronary artery disease with previous bypass surgery, cataracts, hiatal hernia, obstructive sleep apnea for which the patient needs to be reevaluated for CPAP therapy. His latest sleep evaluation was done many years back. 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 Mother Family Medical History: CVA/TIA Additional Family Medical History / Comment(s): at age 99 3/4 from a stoke Medications and Allergies Home Medications Medication Instructions Recorded Confirmed Type Ezetimibe [Zetia] 10 mg PO DAILY 02/13/16 07/30/21 History atenoloL [Tenormin] 25 mg PO DAILY 02/13/16 07/30/21 History Nitroglycerin Sl Tabs [Nitrostat] 0.4 mg SUBLINGUAL Q5M PRN 06/22/16 07/30/21 History clonazePAM [KlonoPIN] 0.5 mg PO DAILY PRN 06/22/16 07/30/21 History Furosemide [Lasix] 20 mg PO DAILY #30 tab 06/25/16 07/30/21 Rx Clopidogrel [Plavix] 75 mg PO HS 10/20/19 07/30/21 History Rosuvastatin [Crestor] 10 mg PO HS 10/20/19 07/30/21 History Montelukast Sodium [Singulair] 10 mg PO HS 06/22/20 07/30/21 History DULoxetine HCL [Cymbalta] 60 mg PO DAILY 07/19/21 07/30/21 History Budesonide [Pulmicort] 1 mg INHALATION RT-BID 30 Days #30 07/21/21 07/30/21 Rx ml Ipratropium-Albuterol Nebulize 3 ml INHALATION RT-Q4H PRN ml 07/21/21 07/30/21 Rx [Duoneb 0.5 mg-3 mg/3 ml Soln] Ipratropium-Albuterol Nebulize 3 ml INHALATION RT-QID 30 Days 07/21/21 07/30/21 Rx [Duoneb 0.5 mg-3 mg/3 ml Soln] #120 ml guaiFENesin SYRUP 100MG/5ML 200 mg PO Q6HR PRN #100 ml 07/21/21 07/30/21 Rx [Robitussin] polyethylene glycoL 3350 [Miralax] 2 tbsp PO DAILY 07/30/21 07/30/21 History Allergies Allergy/AdvReac Type Severity Reaction Status Date / Time No Known Allergies Allergy Verified 07/30/21 10:37 Physical Exam Vitals: Vital Signs Pulse Resp BP Pulse Ox 07/31/21 09:58 93 22 178/93 95 07/31/21 08:31 88 07/31/21 08:19 86 07/31/21 07:45 90 20 96 07/31/21 04:08 85 22 140/77 96 07/31/21 03:50 78 07/31/21 03:42 78 07/30/21 23:30 80 07/30/21 23:20 86 07/30/21 21:00 81 16 122/77 96 07/30/21 20:30 78 07/30/21 20:13 74 07/30/21 18:00 70 20 121/66 95 07/30/21 17:15 70 07/30/21 17:08 70 07/30/21 17:00 84 20 114/69 92 L 07/30/21 16:00 81 20 140/71 93 L 07/30/21 15:00 70 20 142/69 92 L GENERAL EXAM: Alert, very pleasant, 81-year-old white male, 2 L of oxygen pulse ox of 95%, comfortable in no apparent distress. HEAD: Normocephalic/atraumatic. EYES: Normal reaction of pupils, equal size. Conjunctiva pink, sclera white. NOSE: Clear with pink turbinates. THROAT: No erythema or exudates. NECK: No masses, no JVD, no thyroid enlargement, no adenopathy. CHEST: No chest wall deformity. Symmetrical expansion. LUNGS: Equal air entry with diffuse rhonchi and wheezing CVS: Regular rate and rhythm, normal S1 and S2, no gallops, no murmurs, no rubs ABDOMEN: Soft, nontender. No hepatosplenomegaly, normal bowel sounds, no guarding or rigidity. EXTREMITIES: No clubbing, no edema, no cyanosis, 2+ pulses and upper and lower extremities. Patient has evidence of healed scar on his left lower extremity from previous history of vein graft site for coronary artery bypass graft MUSCULOSKELETAL: Muscle strength and tone normal. SPINE: No scoliosis or deformity SKIN: No rashes CENTRAL NERVOUS SYSTEM: Alert and oriented -3. No focal deficits, tone is normal in all 4 extremities. PSYCHIATRIC: Alert and oriented -3. Appropriate affect. Intact judgment and insight. Results - Laboratory Findings CBC and BMP: 07/30/21 09:25 07/31/21 07:11 PT/INR, D-dimer PT 10.0 sec (9.0-12.0) 07/30/21 09:25 INR 0.9 (<1.2) 07/30/21 09:25 D-Dimer 0.85 mg/L FEU (<0.60) H 07/30/21 09:25 Abnormal lab findings: Abnormal Labs 07/30/21 07/30/21 07/30/21 09:25 09:25 09:25 WBC 21.2 H Plt Count 148 L Neutrophils # 18.6 H APTT 21.5 L D-Dimer 0.85 H Sodium 131 L BUN Glucose 160 H Plasma Lactic Acid Ronaldo 07/30/21 07/30/21 07/30/21 09:25 14:03 17:55 WBC Plt Count Neutrophils # APTT D-Dimer Sodium BUN Glucose Plasma Lactic Acid Ronaldo 2.1 H* 2.9 H* 2.1 H* 07/30/21 07/31/21 07/31/21 22:28 02:31 05:36 WBC Plt Count Neutrophils # APTT D-Dimer Sodium BUN Glucose Plasma Lactic Acid Ronaldo 3.7 H* 3.3 H* 2.2 H* 07/31/21 07/31/21 07:11 09:36 WBC Plt Count Neutrophils # APTT D-Dimer Sodium 133 L BUN 23 H Glucose 257 H Plasma Lactic Acid Ronaldo 4.7 H* - Diagnostic Findings Chest x-ray: report reviewed, image reviewed CT scan - chest: report reviewed, image reviewed Assessment and Plan Plan: Assessment: #1. Acute hypoxic respiratory failure related to acute exacerbation of COPD, and possibility of interstitial pneumonia. COVID-19 PCR was negative, proBNP was within normal limits #2. History of COPD, currently in the process of getting home oxygen #3. 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 Elevated d-dimer, with no CT evidence of pulmonary embolism #5. History of coronary artery disease with previous history of PCI, coronary stenting, and bypass surgery #6. Obstructive sleep apnea, patient needs to be re-evaluated for a CPAP device and outpatient basis #7. Obesity #8. Hiatal hernia #9. History of CHF with #10. Moderate degree of aortic stenosis #11. 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 Peripheral artery disease #13. Anxiety #14. Former smoker Plan: Continue nebulized bronchodilators Continue empiric antibiotics We'll send the pro calcitonin level Send sputum specimen Continue IV hydration Will continue to follow his clinical course I performed a history & physical examination of the patient and discussed their management with my nurse practitioner, Nuris Cash. I reviewed the nurse practitioner's note and agree with the documented findings and plan of care. Lung sounds are positive for diffuse wheezes throughout the lung chaudhry. The findings and the impression was discussed with the patient. I attest to the documentation by the nurse practitioner. Time with Patient: Greater than 30
--- NOTE | 2021-07-31 14:52 | P.PN ---
Subjective Progress Note Date: 07/31/21 Patient is a 81-year-old male with a known history of COPD, obstructive sleep apnea, coronary disease history of CABG, history of stent placement, hypertension, hyperlipidemia, anxiety/depression previous history of smoking presents to ER with complaints of worsening shortness of breath since morning.. Denied any chest pain. No complaints of fever or chills. Does have cough without sputum production. No nausea vomiting abdominal pain or diarrhea. Denies recent illnesses. EMS was called and patient was given DuoNeb breathing treatment. Patient did have some improvement. No sick contacts at home. Patient is fully vaccinated including both are short. Chest x-ray showed mild increase in lung markings diffusely. This is best visualized posteriorly. CT angio of the chest was done due to elevated D-dimer level. Showed scattered increase in lung markings mid and lower lung chaudhry posteriorly. Correlate for atypical pneumonia. Pulmonary edema would be within differential No acute pulmonary embolism noted. Laboratory showed WBC 21.2 hemoglobin 15.1 platelets 148 D-dimer is 0.85 Sodium 131 potassium 4.2 chloride 98 BUN 17 and creatinine 0.86 and lactic acid level is 2.1 liver enzymes are not elevated proBNP 127 and troponin 0 0.018 Influenza and coronavirus PCR not detected.T-max was 103.6 on admission. Patient was recently admitted to the hospital due to acute COPD exacerbation was discharged on 07/21/21 . 07/31/2021 Patient is evaluated today in the [facility], white blood cell count pending from today. Sodium today is 133, BUN 23. Lactic acid remains elevated at 3.9. Patient continues on 0.9 normal saline at 100 mL per hour. Initial troponin was negative, BNP 127, 189. Legionella was negative, COVID negative, influenza A and B are negative. Chest CTA shows atypical pneumonia, on IV Rocephin and PO Zithromax. Being followed closely by pulmonary services. Patient currently denies any chest pain, palpitations. He does report some shortness of breath and cough with sputum. He is a former smoker, drinks a glass of scotch 2 to 3 times per week. Sputum culture is pending. Lasix is currently on hold. Vital signs today show a temp of 98.4, sinus rhythm 90, blood pressure 135/67 and he is 95% on room air. ROS Constitutional: Denied any fatigue denied any fever. Cardio vascular: denied any chest pain, palpitations Gastrointestinal denied any nausea vomiting Pulmonary: Reports dyspnea with exertion, reports cough with sputum Neurologic denied any new focal deficits All inpatient medications were reviewed and appropriate changes in these medications as dictated in the interval history and assessment and plan. PHYSICAL EXAMINATION: GENERAL: The patient is alert and oriented x3, not in any acute distress. Well developed, well nourished. HEENT: Pupils are round and equally reacting to light. EOMI. No scleral icterus. No conjunctival pallor. Normocephalic, atraumatic. No pharyngeal erythema. No thyromegaly. CARDIOVASCULAR: S1 and S2 present. No murmurs, rubs, or gallops. PULMONARY: Scattered wheezing throughout all lung chaudhry, no crackles noted ABDOMEN: Soft, nontender, nondistended, normoactive bowel sounds. No palpable organomegaly. MUSCULOSKELETAL: No joint swelling or deformity. EXTREMITIES: No cyanosis, clubbing, mild nonpitting peripheral edema NEUROLOGICAL: Gross neurological examination did not reveal any focal deficits. SKIN: No rashes. Assessment and plan Assessment Acute hypoxic respiratory failure secondary to COPD exacerbation, component of pneumonia, Covid PCR negative. Sepsis secondary to above COPD Obstructive sleep apnea not on CPAP at home currently, outpatient evaluation Coronary artery disease status post PCI and CABG History of CHF, not in acute exacerbation, diastolic, EF 60-65% as of 06/2020 Hypertension Hyperlipidemia Anxiety/depression previous history of smoking DVT prophylaxis Heparin subcu Plan: Continue with IV fluids Continue IV and PO antibiotics, continue on DuoNeb's and Symbicort Pending finalized blood cultures, obtain sputum culture Repeat labs in the morning Lasix on hold Objective - Vital Signs Vital signs: Vital Signs Temp 98.4 F 07/31/21 12:20 Pulse 90 07/31/21 12:20 Resp 20 07/31/21 12:20 BP 135/67 07/31/21 12:20 Pulse Ox 95 07/31/21 12:20 Intake & Output 07/30/21 07/31/21 07/31/21 18:59 06:59 18:59 Weight 106.594 kg - Labs CBC & Chem 7: 07/30/21 09:25 07/31/21 07:11 Labs: Abnormal Lab Results - Last 24 Hours (Table) 07/30/21 07/30/21 07/31/21 Range/Units 17:55 22:28 02:31 Sodium (137-145) mmol/L BUN (9-20) mg/dL Glucose (74-99) mg/dL Plasma Lactic Acid Ronaldo 2.1 H* 3.7 H* 3.3 H* (0.7-2.0) mmol/L 07/31/21 07/31/21 07/31/21 Range/Units 05:36 07:11 09:36 Sodium 133 L (137-145) mmol/L BUN 23 H (9-20) mg/dL Glucose 257 H (74-99) mg/dL Plasma Lactic Acid Ronaldo 2.2 H* 4.7 H* (0.7-2.0) mmol/L 07/31/21 Range/Units 12:41 Sodium (137-145) mmol/L BUN (9-20) mg/dL Glucose (74-99) mg/dL Plasma Lactic Acid Ronaldo 3.9 H* (0.7-2.0) mmol/L Microbiology - Last 24 Hours (Table) 07/30/21 09:21 Blood Culture - Preliminary Blood No Growth after 24 hours 07/30/21 09:20 Blood Culture - Preliminary Blood No Growth after 24 hours Assessment and Plan Time with Patient: Greater than 30
[2021-07-31] MEDS: ATORVASTATIN 20 MG TAB PO SCH (21:03)
[2021-07-31] MEDS: MONTELUKAST 10 MG TAB PO SCH (21:03)
[2021-07-31] MEDS: CLOPIDOGREL 75 MG TAB PO SCH (21:03)
[2021-08-01] MEDS: IPRATROPIUM-ALBUTEROL 3 ML NEB INHALATION SCH ×7 (00:40→23:44)
[2021-08-01] MEDS: HEPARIN SODIUM,PORCINE/PF 5,000 UNIT/0.5 ML SYRINGE SQ SCH ×3 (01:14→16:54)
[2021-08-01] MEDS: clonazePAM 0.5 MG TAB PO PRN (01:23)
[2021-08-01] MEDS: SODIUM CHLORIDE 0.9% 1,000 ML IV SCH ×2 (02:53→15:05)
[2021-08-01 06:48] LABS: African American GFR (CKD) >90 (>60 ml/min/1.73 sqM); Anion Gap 6 mmol/L; Blood Urea Nitrogen 28 mg/dL (9-20); Calcium 8.9 mg/dL (8.4-10.2); Carbon Dioxide 23 mmol/L (22-30); Chloride 102 mmol/L (98-107); Glucose 234 mg/dL (74-99); Non-African American GFR(CKD) 79 (>60 ml/min/1.73 sqM); Potassium 5.2 mmol/L (3.5-5.1); Sodium 131 mmol/L (137-145)
[2021-08-01 07:02] LABS: Basophils % (A) 0 %; Eosinophils % (A) 0 %; HCT 40.8 % (39.0-53.0); HGB 13.8 gm/dL (13.0-17.5); Lymphocytes # (A) 1.1 k/uL (1.0-4.8); Lymphocytes % (A) 4 %; MCH 32.6 pg (25.0-35.0); MCHC 33.7 g/dL (31.0-37.0); MCV 96.7 fL (80.0-100.0); Mean Platelet Volume 10.5; Monocytes % (A) 4 %; Neutrophils % (A) 92 %; Platelet Count 148 k/uL (150-450); RBC 4.22 m/uL (4.30-5.90); RDW 13.5 % (11.5-15.5); WBC 27.3 k/uL (3.8-10.6)
[2021-08-01] MEDS: BUDESONIDE 1 MG/2 ML NEBU INHALATION SCH ×2 (08:05→19:06)
[2021-08-01] MEDS: EZETIMIBE 10 MG TAB PO SCH (09:02)
[2021-08-01] MEDS: polyethylene glycoL 3350 17 GM POWD.PACK PO SCH (09:02)
[2021-08-01] MEDS: FUROSEMIDE 20 MG TAB PO SCH (09:03)
[2021-08-01] MEDS: atenoloL 25 MG TAB PO SCH (09:03)
[2021-08-01] MEDS: DULoxetine HCL 60 MG CAPSULE.DR PO SCH (09:03)
[2021-08-01] MEDS: AZITHROMYCIN 500 MG TAB PO SCH (09:03)
--- NOTE | 2021-08-01 12:51 | P.PN ---
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 His symptoms started on Saturday, and his fever on admission was 103.6F. He was recently discharged from the [facility]. He is currently in the process of getting home oxygen however has not gotten the equipment yet. He normally sees a data analytics chief scientist from [facility][1]. He lives in [facility]. Chest x-ray the emergency department showed mild increased lung markings. He is currently on 2 L of oxygen pulse ox is 96%. Admission lab work showed evidence of leukocytosis with white blood cell, 21.2, hemoglobin was 15.2, platelet, was 148, neutrophil count was 18.6, d-dimer 0.85, sodium was 131, the rest of electrolytes and renal profile were unremarkable, he had lactic acidosis with a lactic acid it peaked at 4.7. Troponin was 0.018, proBNP was 127, LFTs were within normal limits, influenza A and B and COVID-[address] chest was completed showing scattered increased lung markings in the mid and lower lung chaudhry posteriorly, correlate for atypical pneumonia, and no evidence of acute pulmonary embolism. Started on empiric antibiotics including azithromycin and Rocephin and nebulized bronchodilators. He still has a congested cough, denies any hemoptysis or chest pain. On 08/01/2021 patient seen in follow-up on medical surgical floor. he is feeling better, breathing easier today, he is on room air, pulse ox 97%, he is still congested, lung sounds reveal diffuse rhonchi and crackles, he has been ge t 0.9 normal saline at a rate of 100 ML per hour for lactic acidosis. Today's lactic acid is 1.5. Patient sounds more congested on today's exam. In addition he is on azithromycin and Rocephin for possibility of interstitial pneumonia, today's labs have been reviewed, his white blood cell count is 27.3, hemoglobin is 13.8, serum sodium is 134, potassium is 5.2, the rest of the electrolytes were within normal limits, B1 is 28, creatinine 0.91, his proBNP was 553, Procan SR level was 0.21, Legionella urine antigen was negative, patient tested negative for COVID-19, influenza A and B. His home dose Lasix has been on hold related to lactic acidosis. Patient was on IV steroids in the emergency department which have been discontinued. Objective - Vital Signs Vital signs: Vital Signs Temp 98.1 F 08/01/21 08:00 Pulse 90 08/01/21 11:56 Resp 18 08/01/21 11:56 BP 133/71 08/01/21 08:00 Pulse Ox 94 L 08/01/21 08:07 Intake & Output 07/31/21 08/01/21 08/01/21 18:59 06:59 18:59 Weight 106.594 kg Other: Voiding Method Toilet Urinal - Exam GENERAL EXAM: Alert, very pleasant, 81-year-old white male, coming with pulse ox of 97% comfortable in no apparent distress. HEAD: Normocephalic/atraumatic. EYES: Normal reaction of pupils, equal size. Conjunctiva pink, sclera white. NOSE: Clear with pink turbinates. THROAT: No erythema or exudates. NECK: No masses, no JVD, no thyroid enlargement, no adenopathy. CHEST: No chest wall deformity. Symmetrical expansion. LUNGS: Equal air entry with diffuse rhonchi and wheezing CVS: Regular rate and rhythm, normal S1 and S2, no gallops, no murmurs, no rubs ABDOMEN: Soft, nontender. No hepatosplenomegaly, normal bowel sounds, no guarding or rigidity. EXTREMITIES: No clubbing, no edema, no cyanosis, 2+ pulses and upper and lower extremities. Patient has evidence of healed scar on his left lower extremity from previous history of vein graft site for coronary artery bypass graft MUSCULOSKELETAL: Muscle strength and tone normal. SPINE: No scoliosis or deformity SKIN: No rashes CENTRAL NERVOUS SYSTEM: Alert and oriented -3. No focal deficits, tone is normal in all 4 extremities. PSYCHIATRIC: Alert and oriented -3. Appropriate affect. Intact judgment and insight. - Labs CBC & Chem 7: 08/01/21 05:50 08/01/21 05:50 Labs: Abnormal Lab Results - Last 24 Hours (Table) 07/31/21 07/31/21 07/31/21 Range/Units 07:11 12:41 16:55 WBC (3.8-10.6) k/uL RBC (4.30-5.90) m/uL Plt Count (150-450) k/uL Neutrophils # (1.3-7.7) k/uL Sodium (137-145) mmol/L Potassium (3.5-5.1) mmol/L BUN (9-20) mg/dL Glucose (74-99) mg/dL Plasma Lactic Acid Ronaldo 3.9 H* 3.7 H* (0.7-2.0) mmol/L Procalcitonin 0.21 H (0.02-0.09) ng/mL 07/31/21 08/01/21 08/01/21 Range/Units 20:24 05:50 05:50 WBC 27.3 H (3.8-10.6) k/uL RBC 4.22 L (4.30-5.90) m/uL Plt Count 148 L (150-450) k/uL Neutrophils # 25.0 H (1.3-7.7) k/uL Sodium 131 L (137-145) mmol/L Potassium 5.2 H (3.5-5.1) mmol/L BUN 28 H (9-20) mg/dL Glucose 234 H (74-99) mg/dL Plasma Lactic Acid Ronaldo 2.8 H* (0.7-2.0) mmol/L Procalcitonin (0.02-0.09) ng/mL Microbiology - Last 24 Hours (Table) 07/30/21 09:21 Blood Culture - Preliminary Blood No Growth after 48 hours 07/30/21 09:20 Blood Culture - Preliminary Blood No Growth after 48 hours 08/01/21 05:09 Sputum Culture - Preliminary Sputum Assessment and Plan Plan: Assessment: #1. Acute hypoxic respiratory failure related to acute exacerbation of COPD, and possibility of interstitial pneumonia. COVID-19 PCR was negative, proBNP was within normal limits #2. History of COPD, currently in the process of getting home oxygen #3. 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 Elevated d-dimer, with no CT evidence of pulmonary embolism #5. History of coronary artery disease with previous history of PCI, coronary stenting, and bypass surgery #6. Obstructive sleep apnea, patient needs to be re-evaluated for a CPAP device and outpatient basis #7. Obesity #8. Hiatal hernia #9. History of CHF with #10. Moderate degree of aortic stenosis #11. 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 Peripheral artery disease #13. Anxiety #14. Former smoker Plan: Continue nebulized bronchodilators Continue empiric antibiotics Procalcitonin level has been noted, not significantly elevated Continue azithromycin and Rocephin for acute COPD exacerbation and tracheobronchitis Legionella urine antigen was negative Patient is still wheezy, congested We'll restart the patient on IV Solu-Medrol 40 mg every 8 hours We'll restart home dose Lasix Cut back IV fluids to KVO We'll continue to follow his clinical course I performed a history & physical examination of the patient and discussed their management with my nurse practitioner, Nuris Cash. I reviewed the nurse practitioner's note and agree with the documented findings and plan of care. Lung sounds are positive for diffuse wheezes throughout the lung chaudhry. The findings and the impression was discussed with the patient. I attest to the documentation by the nurse practitioner. Time with Patient: Less than 30
[2021-08-01] MEDS ORDERED: BENZOCAINE/MENTHOL LOZENG 1 EACH LOZENGE MUCOUS MEM PRN (14:19)
--- NOTE | 2021-08-01 14:23 | P.PN ---
Subjective Progress Note Date: 08/01/21 Patient is a 81-year-old male with a known history of COPD, obstructive sleep apnea, coronary disease history of CABG, history of stent placement, hypertension, hyperlipidemia, anxiety/depression previous history of smoking presents to ER with complaints of worsening shortness of breath since morning.. Denied any chest pain. No complaints of fever or chills. Does have cough without sputum production. No nausea vomiting abdominal pain or diarrhea. Denies recent illnesses. EMS was called and patient was given DuoNeb breathing treatment. Patient did have some improvement. No sick contacts at home. Patient is fully vaccinated including both are short. Chest x-ray showed mild increase in lung markings diffusely. This is best visualized posteriorly. CT angio of the chest was done due to elevated D-dimer level. Showed scattered increase in lung markings mid and lower lung chaudhry posteriorly. Correlate for atypical pneumonia. Pulmonary edema would be within differential No acute pulmonary embolism noted. Laboratory showed WBC 21.2 hemoglobin 15.1 platelets 148 D-dimer is 0.85 Sodium 131 potassium 4.2 chloride 98 BUN 17 and creatinine 0.86 and lactic acid level is 2.1 liver enzymes are not elevated proBNP 127 and troponin 0 0.018 Influenza and coronavirus PCR not detected.T-max was 103.6 on admission. Patient was recently admitted to the hospital due to acute COPD exacerbation was discharged on 07/21/21 . 07/31/2021 Patient is evaluated today in the [facility], white blood cell count pending from today. Sodium today is 133, BUN 23. Lactic acid remains elevated at 3.9. Patient continues on 0.9 normal saline at 100 mL per hour. Initial troponin was negative, BNP 127, 189. Legionella was negative, COVID negative, influenza A and B are negative. Chest CTA shows atypical pneumonia, on IV Rocephin and PO Zithromax. Being followed closely by pulmonary services. Patient currently denies any chest pain, palpitations. He does report some shortness of breath and cough with sputum. He is a former smoker, drinks a glass of scotch 2 to 3 times per week. Sputum culture is pending. Lasix is currently on hold. Vital signs today show a temp of 98.4, sinus rhythm 90, blood pressure 135/67 and he is 95% on room air. 08/01/2021 Patient is evaluated today resting with his at the bedside. Labs today show a white count of 27.3, however procalcitonin level resulted at 0.21, suggesting that this is most likely a viral pneumonia. Viral panel for Covid, influenza A/B, and Legionella was all negative. We are still pending a mycoplasma. Antibiotics were discontinued and we will continue with supportive care. Clinically patient is doing better today his lungs are clearing and he was able to cough up more sputum, he states that he does feel at this breathing has improved. Sodium level today is 131, potassium 5.2. Lactic acid has resolved it is now 1.5. Patient is afebrile, 98.1, no temps in the last 24 hours. ROS Constitutional: Denied any fatigue denied any fever. Cardio vascular: denied any chest pain, palpitations Gastrointestinal: denied any nausea vomiting Pulmonary: Denies shortness of breath, reports cough with sputum Neurologic denied any new focal deficits All inpatient medications were reviewed and appropriate changes in these medications as dictated in the interval history and assessment and plan. PHYSICAL EXAMINATION: GENERAL: The patient is alert and oriented x3, not in any acute distress. Well developed, well nourished. HEENT: Pupils are round and equally reacting to light. EOMI. No scleral icterus. No conjunctival pallor. Normocephalic, atraumatic. No pharyngeal erythema. No thyromegaly. CARDIOVASCULAR: S1 and S2 present. No murmurs, rubs, or gallops. PULMONARY: Coarse rhonchi in the left lower lobe posterior ABDOMEN: Soft, nontender, nondistended, normoactive bowel sounds. No palpable organomegaly. MUSCULOSKELETAL: No joint swelling or deformity. EXTREMITIES: No cyanosis, clubbing, mild nonpitting peripheral edema NEUROLOGICAL: Gross neurological examination did not reveal any focal deficits. SKIN: No rashes. Assessment and plan Assessment Acute hypoxic respiratory failure secondary to COPD exacerbation, component of pneumonia, Covid PCR negative. Community-acquired pneumonia, viral etiology as pro-calcitonin level is 0.21 Sepsis secondary to above with leukocytosis COPD - in the process of getting home oxygen outpatient Elevated d-dimer, CT negative for pulmonary embolism Obstructive sleep apnea not on CPAP at home currently, outpatient evaluation Coronary artery disease status post PCI and CABG History of CHF, not in acute exacerbation, diastolic, EF 60-65% as of 06/2020, BNP within normal limits Hypertension Hyperlipidemia Anxiety/depression previous history of smoking DVT prophylaxis Heparin subcu Plan: Decrease IV fluids Continue on DuoNeb's and Symbicort IV Solu-Medrol Lasix has been resumed Pending finalized blood cultures, sputum culture Mycoplasma antibodies are pending Repeat labs in the morning Patient will discharge the next 24-48 hours pending response to steroids We will need to check into the status of his home oxygen, and what medical supplier he was working with. Objective - Vital Signs Vital signs: Vital Signs Temp 98.1 F 08/01/21 08:00 Pulse 90 08/01/21 11:56 Resp 18 08/01/21 11:56 BP 133/71 08/01/21 08:00 Pulse Ox 94 L 08/01/21 08:07 Intake & Output 07/31/21 08/01/21 08/01/21 18:59 06:59 18:59 Weight 106.594 kg Other: Voiding Method Toilet Urinal - Labs CBC & Chem 7: 08/01/21 05:50 08/01/21 05:50 Labs: Abnormal Lab Results - Last 24 Hours (Table) 07/31/21 07/31/21 07/31/21 Range/Units 07:11 16:55 20:24 WBC (3.8-10.6) k/uL RBC (4.30-5.90) m/uL Plt Count (150-450) k/uL Neutrophils # (1.3-7.7) k/uL Sodium (137-145) mmol/L Potassium (3.5-5.1) mmol/L BUN (9-20) mg/dL Glucose (74-99) mg/dL Plasma Lactic Acid Ronaldo 3.7 H* 2.8 H* (0.7-2.0) mmol/L Procalcitonin 0.21 H (0.02-0.09) ng/mL 08/01/21 08/01/21 Range/Units 05:50 05:50 WBC 27.3 H (3.8-10.6) k/uL RBC 4.22 L (4.30-5.90) m/uL Plt Count 148 L (150-450) k/uL Neutrophils # 25.0 H (1.3-7.7) k/uL Sodium 131 L (137-145) mmol/L Potassium 5.2 H (3.5-5.1) mmol/L BUN 28 H (9-20) mg/dL Glucose 234 H (74-99) mg/dL Plasma Lactic Acid Ronaldo (0.7-2.0) mmol/L Procalcitonin (0.02-0.09) ng/mL Microbiology - Last 24 Hours (Table) 07/30/21 09:21 Blood Culture - Preliminary Blood No Growth after 48 hours 07/30/21 09:20 Blood Culture - Preliminary Blood No Growth after 48 hours 08/01/21 05:09 Sputum Culture - Preliminary Sputum Assessment and Plan Time with Patient: Greater than 30
[2021-08-01] MEDS: methylPREDNISolone SOD SUCCI 40 MG/ML 1 ML VIAL IV SCH (16:54)
[2021-08-01] MEDS: ATORVASTATIN 20 MG TAB PO SCH (22:04)
[2021-08-01] MEDS: CLOPIDOGREL 75 MG TAB PO SCH (22:04)
[2021-08-01] MEDS: MONTELUKAST 10 MG TAB PO SCH (22:04)
[2021-08-02] MEDS: HEPARIN SODIUM,PORCINE/PF 5,000 UNIT/0.5 ML SYRINGE SQ SCH ×2 (00:56→08:49)
[2021-08-02] MEDS: methylPREDNISolone SOD SUCCI 40 MG/ML 1 ML VIAL IV SCH ×2 (00:57→08:49)
[2021-08-02] MEDS: IPRATROPIUM-ALBUTEROL 3 ML NEB INHALATION SCH ×4 (04:26→15:36)
[2021-08-02 08:40] VITALS: BP 124/73; RESP 17; TEMP 97.6
[2021-08-02] MEDS: FUROSEMIDE 20 MG TAB PO SCH (08:46)
[2021-08-02] MEDS: atenoloL 25 MG TAB PO SCH (08:47)
[2021-08-02] MEDS: polyethylene glycoL 3350 17 GM POWD.PACK PO SCH (08:48)
[2021-08-02] MEDS: EZETIMIBE 10 MG TAB PO SCH (08:48)
[2021-08-02] MEDS: DULoxetine HCL 60 MG CAPSULE.DR PO SCH (08:48)
[2021-08-02] MEDS: BUDESONIDE 1 MG/2 ML NEBU INHALATION SCH (09:02)
[2021-08-02 09:45] LABS: African American GFR (CKD) 73.1 (60.0-200.0); Anion Gap 14.1 mmol/L (4.00-12.00); BUN/Creat Ratio 20.82 Ratio (12.00-20.00); Blood Urea Nitrogen 22.9 mg/dL (9.0-27.0); Carbon Dioxide 23.9 mmol/L (21.6-31.8); Non-African American GFR(CKD) 63.1 (60.0-200.0); Potassium 5.5 mmol/L (3.5-5.5)
[2021-08-02 11:33] LABS: Basophils # (A) 0.01 X 10*3/uL (0.00-0.10); Basophils % (A) 0.1 %; Eosinophils # (A) 0 X 10*3/uL (0.04-0.35); Eosinophils % (A) 0 %; HCT 44.4 % (39.6-50.0); HGB 14.5 g/dL (13.0-17.0); Lymphocytes # (A) 0.49 X 10*3/uL (0.90-5.00); Lymphocytes % (A) 3.3 %; MCH 31.7 pg (27.0-32.0); MCHC 32.7 g/dL (32.0-37.0); MCV 96.9 fL (80.0-97.0); Mean Platelet Volume 13.4 fL (9.5-12.2); Monocytes % (A) 1.4 %; Neutrophils # (A) 13.94 X 10*3/uL (1.80-7.70); Neutrophils % (A) 94.5 %; Platelet Count 138 X 10*3/uL (140-440); RBC 4.58 X 10*6/uL (4.40-5.60); RDW 13.1 % (11.5-14.5); WBC 14.74 X 10*3/uL (4.50-10.00)
--- NOTE | 2021-08-02 11:40 | P.PN ---
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 His symptoms started on Saturday, and his fever on admission was 103.6F. He was recently discharged from the [facility]. He is currently in the process of getting home oxygen however has not gotten the equipment yet. He normally sees a programmer or analyst from [facility]. He lives in [facility]. Chest x-ray the emergency department showed mild increased lung markings. He is currently on 2 L of oxygen pulse ox is 96%. Admission lab work showed evidence of leukocytosis with white blood cell, 21.2, hemoglobin was 15.2, platelet, was 148, neutrophil count was 18.6, d-dimer 0.85, sodium was 131, the rest of electrolytes and renal profile were unremarkable, he had lactic acidosis with a lactic acid it peaked at 4.7. Troponin was 0.018, proBNP was 127, LFTs were within normal limits, influenza A and B and COVID-[address] chest was completed showing scattered increased lung markings in the mid and lower lung chaudhry posteriorly, correlate for atypical pneumonia, and no evidence of acute pulmonary embolism. Started on empiric antibiotics including azithromycin and Rocephin and nebulized bronchodilators. He still has a congested cough, denies any hemoptysis or chest pain. On 08/01/2021 patient seen in follow-up on medical surgical floor. he is feeling better, breathing easier today, he is on room air, pulse ox 97%, he is still congested, lung sounds reveal diffuse rhonchi and crackles, he has been ge t 0.9 normal saline at a rate of 100 ML per hour for lactic acidosis. Today's lactic acid is 1.5. Patient sounds more congested on today's exam. In addition he is on azithromycin and Rocephin for possibility of interstitial pneumonia, today's labs have been reviewed, his white blood cell count is 27.3, hemoglobin is 13.8, serum sodium is 134, potassium is 5.2, the rest of the electrolytes were within normal limits, B1 is 28, creatinine 0.91, his proBNP was 553, Procan SR level was 0.21, Legionella urine antigen was negative, patient tested negative for COVID-19, influenza A and B. His home dose Lasix has been on hold related to lactic acidosis. Patient was on IV steroids in the emergency department which have been discontinued. On 08/02/2021 patient seen in follow-up on medical surgical floor. He is improving, breathing easier, he is on room air pulse ox is 94%. Still has some scattered rhonchi in the right lung, and rales at the left lower lobe. But overall sounds less congested, no wheezing on today's exam. No fever or chills. Patient continues on nebulized bronchodilators, IV steroids at 40 mg every 8 hours, she was restarted on his home dose Lasix. IV fluids at KVO. He has had no acute events overnight. Objective - Vital Signs Vital signs: Vital Signs Temp 97.6 F 08/02/21 08:00 Pulse 67 08/02/21 09:16 Resp 17 08/02/21 08:00 BP 124/73 08/02/21 08:00 Pulse Ox 94 L 08/02/21 08:00 Intake & Output 08/01/21 08/02/21 08/02/21 18:59 06:59 18:59 Intake Total 480 236 Balance 480 236 Intake: Oral 480 236 Other: Voiding Method Toilet Toilet Urinal Urinal # Voids 1 0 0 # Bowel Movements 0 0 - Exam GENERAL EXAM: Alert, very pleasant, 81-year-old white male, coming with pulse ox of 94% comfortable in no apparent distress. HEAD: Normocephalic/atraumatic. EYES: Normal reaction of pupils, equal size. Conjunctiva pink, sclera white. NOSE: Clear with pink turbinates. THROAT: No erythema or exudates. NECK: No masses, no JVD, no thyroid enlargement, no adenopathy. CHEST: No chest wall deformity. Symmetrical expansion. LUNGS: Equal air entry with diffuse rhonchi over right lower lobe and rales at the left base CVS: Regular rate and rhythm, normal S1 and S2, no gallops, no murmurs, no rubs ABDOMEN: Soft, nontender. No hepatosplenomegaly, normal bowel sounds, no guarding or rigidity. EXTREMITIES: No clubbing, no edema, no cyanosis, 2+ pulses and upper and lower extremities. Patient has evidence of healed scar on his left lower extremity from previous history of vein graft site for coronary artery bypass graft MUSCULOSKELETAL: Muscle strength and tone normal. SPINE: No scoliosis or deformity SKIN: No rashes CENTRAL NERVOUS SYSTEM: Alert and oriented -3. No focal deficits, tone is normal in all 4 extremities. PSYCHIATRIC: Alert and oriented -3. Appropriate affect. Intact judgment and insight. - Labs CBC & Chem 7: 08/02/21 05:28 08/02/21 05:27 Labs: Abnormal Lab Results - Last 24 Hours (Table) 08/02/21 08/02/21 Range/Units 05:27 05:28 WBC 14.74 H (4.50-10.00) X 10*3/uL Plt Count 138 L (140-440) X 10*3/uL Plt Count Comment DECREASED A MPV 13.4 H (9.5-12.2) fL Immature Gran # 0.10 H (0.00-0.04) X 10*3/uL Neutrophils # 13.94 H (1.80-7.70) X 10*3/uL Lymphocytes # 0.49 L (0.90-5.00) X 10*3/uL Eosinophils # 0 L (0.04-0.35) X 10*3/uL Anion Gap 14.10 H (4.00-12.00) mmol/L BUN/Creatinine Ratio 20.82 H (12.00-20.00) Ratio Glucose 238 H (70-110) mg/dL Microbiology - Last 24 Hours (Table) 07/30/21 09:21 Blood Culture - Preliminary Blood No Growth after 72 hours 07/30/21 09:20 Blood Culture - Preliminary Blood No Growth after 72 hours 08/01/21 05:09 Gram Stain - Preliminary Sputum Sputum Culture - Preliminary Assessment and Plan Plan: Assessment: #1. Acute hypoxic respiratory failure related to acute exacerbation of COPD, and possibility of interstitial pneumonia. COVID-19 PCR was negative, proBNP was within normal limits #2. History of COPD, currently in the process of getting home oxygen #3. 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 Elevated d-dimer, with no CT evidence of pulmonary embolism #5. History of coronary artery disease with previous history of PCI, coronary stenting, and bypass surgery #6. Obstructive sleep apnea, patient needs to be re-evaluated for a CPAP device and outpatient basis #7. Obesity #8. Hiatal hernia #9. History of CHF with #10. Moderate degree of aortic stenosis #11. 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 Peripheral artery disease #13. Anxiety #14. Former smoker Plan: Continue current medical treatment Continue IV steroids, home dose Lasix, and bronchodilators Blood and sputum cultures have been sent, and pending Patient is feeling better, less congested and less dyspneic We will increase activity as tolerated, with the patient ambulate If he remains stable and tolerating activity may consider discharge home later on today or tomorrow Outpatient follow-up with Dr. Abrams in the office in 7-10 days I performed a history & physical examination of the patient and discussed their management with my nurse practitioner, Nuris Cash. I reviewed the nurse practitioner's note and agree with the documented findings and plan of care. Lung sounds are positive for diffuse wheezes throughout the lung chaudhry. The findings and the impression was discussed with the patient. I attest to the d ocumentation by the nurse practitioner. Time with Patient: Less than 30
[2021-08-02 15:50] VITALS: PULSE 68
--- NOTE | 2021-08-02 23:16 | P.DS ---
Providers Date of admission: 07/30/21 12:39 Attending physician: Maverick Deng Consults: 07/30/21 23:59 Consult Physician Routine Consulting Provider: Jesse Gomez Reason/Comments: Pneumonia Do you want consulting provider notified?: Yes, Notify in am Primary care physician: [facility] Course: Final Diagnosis Acute hypoxic respiratory failure secondary to COPD exacerbation, component of pneumonia, Covid PCR negative. Community-acquired pneumonia, viral etiology as pro-calcitonin level is 0.21 Sepsis secondary to above with leukocytosis COPD - in the process of getting home oxygen outpatient Elevated d-dimer, CT negative for pulmonary embolism Obstructive sleep apnea not on CPAP at home currently, outpatient evaluation Coronary artery disease status post PCI and CABG History of CHF, not in acute exacerbation, diastolic, EF 60-65% as of 06/2020, BNP within normal limits Hypertension Hyperlipidemia Anxiety/depression previous history of smoking Discharge Disposition Patient is discharged home without home oxygen, as he was 94% on room air after ambulating about 120 feet. He was cleared by pulmonary services to follow up in the office, and will discharge on oral steroid taper as well as a short course of antibiotics. Hospital Course Patient is a 81-year-old male with a known history of COPD, obstructive sleep apnea, coronary disease history of CABG, history of stent placement, hypertension, hyperlipidemia, anxiety/depression previous history of smoking presents to ER with complaints of worsening shortness of breath since yesterday morning. \ Denied any chest pain. No complaints of fever or chills. Does have cough without sputum production. No nausea vomiting abdominal pain or diarrhea. Denies recent illnesses. EMS was called and patient was given DuoNeb breathing treatment. Patient did have some improvement, and there no sick contacts at home. Patient is fully vaccinated against COVID-19. Chest x-ray showed mild increase in lung markings diffusely. This is best visualized posteriorly. CT angio of the chest was done due to elevated D-dimer level. Showed scattered increase in lung markings mid and lower lung chaudhry posteriorly. Correlate for atypical pneumonia. Pulmonary edema would be within differential. No acute pulmonary embolism noted. Laboratory showed WBC 21.2 hemoglobin 15.1 platelets 148. D-dimer is 0.85 Sodium 131 potassium 4.2 chloride 98 BUN 17 and creatinine 0.86 and lactic acid level is 2.8 liver enzymes are not elevated proBNP 127 and troponin 0 0.018 Influenza and coronavirus PCR not detected.T-max was 103.6 on admission. Patient was recently admitted to the hospital due to acute COPD exacerbation was discharged on 07/21/21 . Patient was treated this admission with IV steroids, and a Procalcitionin level resulted at 0.21 suggesting this may be a viral pneumonia. However his viral panel was negative. Patient was treated inpatient with IV rocephin and PO zithromax, and was discharged on 10 days of oral doxycycline and a prednisone taper. 08/02/2021 Patient is evaluated sitting on the bedside. He reports that his breathing is much improved. He does not ambulate for long distances at home anyway he states maximum is about 50 feet before becoming short of breath. States that his cough is improving, he denies sputum. He denies any chest pain, chest pressure, palpitations but he is tolerating appetite. His white count today is down to 14.74. Sodium improved to 135. He apparently is in the process of getting oxygen at home. He was evaluated by pulmonary services today who recommends marilu smart later on today if he tolerates activity. He was able to ambulate about 120 feet without oxygen and maintained a saturation of 94%. Mycoplasma IgM is negative. Vital signs today show a temperature of 97.6, heart rate 68, BP 124/73, 94% on room air. ROS Constitutional: Denied any fatigue denied any fever. Cardio vascular: denied any chest pain, palpitations Gastrointestinal: denied any nausea vomiting Pulmonary: Denies shortness of breath, reports cough with sputum Neurologic denied any new focal deficits PHYSICAL EXAMINATION: GENERAL: The patient is alert and oriented x3, not in any acute distress. Well developed, well nourished. HEENT: Pupils are round and equally reacting to light. EOMI. No scleral icterus. No conjunctival pallor. Normocephalic, atraumatic. No pharyngeal erythema. No thyromegaly. CARDIOVASCULAR: S1 and S2 present. No murmurs, rubs, or gallops. PULMONARY: Coarse rhonchi in the left lower lobe posterior ABDOMEN: Soft, nontender, nondistended, normoactive bowel sounds. No palpable organomegaly. MUSCULOSKELETAL: No joint swelling or deformity. EXTREMITIES: No cyanosis, clubbing, mild nonpitting peripheral edema NEUROLOGICAL: Gross neurological examination did not reveal any focal deficits. SKIN: No rashes. Please see medication reconciliation for a list of current medications. Thank you for allowing us to participate in the care of this patient. Patient Condition at Discharge: Fair Plan - Discharge Summary Discharge Rx Participant: Yes New Discharge Prescriptions: New predniSONE 0 mg PO DIRECTED 15 Days #30 tab Doxycycline [Vibramycin] 100 mg PO BID 10 Days #20 capsule Benzocaine/Menthol Lozeng [Cepacol lozenge] 1 each MUCOUS MEM Q4HR PRN lozenge PRN Reason: Cough Continue atenoloL [Tenormin] 25 mg PO DAILY Ezetimibe [Zetia] 10 mg PO DAILY clonazePAM [KlonoPIN] 0.5 mg PO DAILY PRN PRN Reason: Anxiety Nitroglycerin Sl Tabs [Nitrostat] 0.4 mg SUBLINGUAL Q5M PRN PRN Reason: Chest Pain Furosemide [Lasix] 20 mg PO DAILY #30 tab Clopidogrel [Plavix] 75 mg PO HS Rosuvastatin [Crestor] 10 mg PO HS Montelukast Sodium [Singulair] 10 mg PO HS DULoxetine HCL [Cymbalta] 60 mg PO DAILY Ipratropium-Albuterol Nebulize [Duoneb 0.5 mg-3 mg/3 ml Soln] 3 ml INHALATION RT-QID 30 Days #120 ml Budesonide [Pulmicort] 1 mg INHALATION RT-BID 30 Days #30 ml Ipratropium-Albuterol Nebulize [Duoneb 0.5 mg-3 mg/3 ml Soln] 3 ml INHALATION RT-Q4H PRN ml PRN Reason: Shortness Of Breath Or Wheezing guaiFENesin SYRUP 100MG/5ML [Robitussin] 200 mg PO Q6HR PRN #100 ml PRN Reason: Cough polyethylene glycoL 3350 [Miralax] 2 tbsp PO DAILY Discharge Medication List Ezetimibe [Zetia] 10 mg PO DAILY 02/13/16 [History] atenoloL [Tenormin] 25 mg PO DAILY 02/13/16 [History] Nitroglycerin Sl Tabs [Nitrostat] 0.4 mg SUBLINGUAL Q5M PRN 06/22/16 [History] clonazePAM [KlonoPIN] 0.5 mg PO DAILY PRN 06/22/16 [History] Furosemide [Lasix] 20 mg PO DAILY #30 tab 06/25/16 [Rx] Clopidogrel [Plavix] 75 mg PO HS 10/20/19 [History] Rosuvastatin [Crestor] 10 mg PO HS 10/20/19 [History] Montelukast Sodium [Singulair] 10 mg PO HS 06/22/20 [History] DULoxetine HCL [Cymbalta] 60 mg PO DAILY 07/19/21 [History] Budesonide [Pulmicort] 1 mg INHALATION RT-BID 30 Days #30 ml 07/21/21 [Rx] Ipratropium-Albuterol Nebulize [Duoneb 0.5 mg-3 mg/3 ml Soln] 3 ml INHALATION RT-Q4H PRN ml 07/21/21 [Rx] Ipratropium-Albuterol Nebulize [Duoneb 0.5 mg-3 mg/3 ml Soln] 3 ml INHALATION RT-QID 30 Days #120 ml 07/21/21 [Rx] guaiFENesin SYRUP 100MG/5ML [Robitussin] 200 mg PO Q6HR PRN #100 ml 07/21/21 [Rx] polyethylene glycoL 3350 [Miralax] 2 tbsp PO DAILY 07/30/21 [History] Benzocaine/Menthol Lozeng [Cepacol lozenge] 1 each MUCOUS MEM Q4HR PRN lozenge 08/02/21 [Rx] Doxycycline [Vibramycin] 100 mg PO BID 10 Days #20 capsule 08/02/21 [Rx] predniSONE 0 mg PO DIRECTED 15 Days #30 tab 08/02/21 [Rx] Follow up Appointment(s)/Referral(s): Krys Abrams MD [STAFF PHYSICIAN] - 08/16/21 2:45 pm Doretha Rose MD [Primary Care Provider] - 08/04/21 10:30 am [facility], [NON-STAFF] - As Needed Ambulatory/Diagnostic Orders: Basic Metabolic Panel [LAB.AMB] Time Frame: 3 Days, Location: None Selected Complete Blood Count w/diff [LAB.AMB] Time Frame: 3 Days, Location: None Selected Patient Instructions/Handouts: Viral Pneumonia (DC), Chronic Lung Disease and Infection Prevention (DC) Discharge Disposition: HOME WITH HOME HEALTH SERVICES
== END 2021-08-02 16:20 | disposition home health service (06) | DRG 871 ==
LOC: EC 08:52 → 4SSUR 12:39
PROVIDERS: ADMIT Internal Medicine; ATTEND Internal Medicine
DX: A41.9 Sepsis, unspecified organism (principal); J12.9 Viral pneumonia, unspecified; J96.01 Acute respiratory failure with hypoxia; E87.2 Acidosis; J44.0 Chronic obstructive pulmonary disease with (acute) lower respiratory infection; J44.1 Chronic obstructive pulmonary disease with (acute) exacerbation; E66.9 Obesity, unspecified; Z68.35 Body mass index [BMI] 35.0-35.9, adult; E78.5 Hyperlipidemia, unspecified; E86.0 Dehydration; F32.A Depression, unspecified; F41.9 Anxiety disorder, unspecified; G47.33 Obstructive sleep apnea (adult) (pediatric); I25.10 Atherosclerotic heart disease of native coronary artery without angina pectoris; Z20.822 Contact with and (suspected) exposure to COVID-19; I35.0 Nonrheumatic aortic (valve) stenosis; I50.9 Heart failure, unspecified; I11.0 Hypertensive heart disease with heart failure; I73.9 Peripheral vascular disease, unspecified; J84.10 Pulmonary fibrosis, unspecified; K44.9 Diaphragmatic hernia without obstruction or gangrene; Z79.899 Other long term (current) drug therapy; Z82.49 Family history of ischemic heart disease and other diseases of the circulatory system; Z87.891 Personal history of nicotine dependence; Z95.1 Presence of aortocoronary bypass graft; Z95.5 Presence of coronary angioplasty implant and graft
CPT/HCPCS: 36415; 71045; 71046; 71275; 80048; 80053; 83605; 83735; 83880; 84145; 84484; 85025; 85379; 85610; 85730; 86738; 87040; 87070; 87205; 87449; 87502; 87635; 93005; 94640; 94760; 96365; 96375; 99291

== ENCOUNTER → 2021-11-21 | Outpatient (CLI) | payer MEDICARE ==
[2021-11-21 15:36] LABS: INR 0.9 (<1.2); Partial Thromboplastin Time 24.3 sec (22.0-30.0); Prothrombin Time 10.1 sec (9.0-12.0)
[2021-11-21 20:21] LABS: Appearance,Urine Cloudy (Clear); Bacteria,Urine None Seen /HPF (None Seen); Bilirubin,Urine Negative (Negative); Blood,Urine Trace (Negative); Calcium Oxalate Crystals,Urine Present /LPF (None Seen); Color,Urine Dark Yellow (Yellow); Ketones,Urine Trace mg/dL (Negative); Leukocyte Esterase,Urine Moderate (Negative); Nitrite,Urine Negative (Negative); Protein,Urine 30 (Negative); Specific Gravity,Urine 1.023 (1.001-1.030); Urobilinogen,Urine 0.2 (0.2,1.0); WBC,Urine >100 /HPF (0-5)
[2021-11-22 01:35] LABS: Basophils # (A) 0.06 X 10*3/uL (0.00-0.10); Basophils % (A) 0.8 %; Eosinophils # (A) 0.31 X 10*3/uL (0.04-0.35); Eosinophils % (A) 3.9 %; HGB 14.8 g/dL (13.0-17.0); Immature Grans, Automated 0.4 %; Lymphocytes # (A) 1.33 X 10*3/uL (0.90-5.00); Lymphocytes % (A) 16.9 %; MCH 31.8 pg (27.0-32.0); MCHC 32.9 g/dL (32.0-37.0); MCV 96.6 fL (80.0-97.0); Mean Platelet Volume 13.9 fL (9.5-12.2); Monocytes # (A) 0.76 X 10*3/uL (0.20-1.00); Monocytes % (A) 9.7 %; NRBC Per 100 WBC 0 /100 WBCS (0.0-0.0); Neutrophils # (A) 5.37 X 10*3/uL (1.80-7.70); Neutrophils % (A) 68.3 %; Platelet Count 189 X 10*3/uL (140-440); RBC 4.66 X 10*6/uL (4.40-5.60); RDW 12.4 % (11.5-14.5); WBC 7.86 X 10*3/uL (4.50-10.00)
[2021-11-22 01:36] LABS: RBC Morphology NORMAL
[2021-11-22 01:58] LABS: Albumin 4.4 g/dL (3.8-4.9); Albumin/Globulin Ratio 1.91 (1.60-3.17); Anion Gap 14.9 mmol/L (10.00-18.00); BUN/Creat Ratio 19.2 Ratio (12.00-20.00); Blood Urea Nitrogen 19.2 mg/dL (9.0-27.0); Calcium 9.3 mg/dL (8.7-10.3); Carbon Dioxide 22.1 mmol/L (20.0-27.5); Globulin 2.3 g/dL (1.6-3.3); Non-African American GFR(CKD) 70.8 (60.0-200.0); Prealbumin 26.9 mg/dL (18.0-42.0); Total Bilirubin 0.3 mg/dL (0.30-1.20); Total Protein 6.7 g/dL (6.2-8.2)
== END | disposition home or self-care (01) ==
LOC: LABWHC1 14:13
DX: Z01.812 Encounter for preprocedural laboratory examination (principal)
CPT/HCPCS: 36415; 80053; 81001; 83036; 84134; 85025; 85610; 85730; 87070

== ENCOUNTER 2022-03-06 13:44 | Inpatient (IN) | payer MEDICARE ==
[2022-03-06] MEDS ORDERED: ACETAMINOPHEN TAB 500 MG TAB PO STA (13:45)
[2022-03-06] MEDS ORDERED: IBUPROFEN 600 MG TAB PO STA (13:45)
--- NOTE | 2022-03-06 13:48 | ED ---
General Adult HPI - General Source: patient, RN notes reviewed, old records reviewed <Shaan Redd - Last Filed: 03/06/22 14:58> <Jesse Scherer - Last Filed: 03/06/22 16:53> - General Stated complaint: FER Time Seen by Provider: 03/06/22 13:44 - History of Present Illness Initial comments: This is an 82-year-old male with past medical history significant for bypass surgery COPD and congestive heart failure. Patient comes in today stating he woke up today and was much more short of breath than normal. Patient states she's also had exposure to COVID patient. According to the ambulance his temperature was 99.[address] in. Patient states he is a 1 out of 10 chest pain that he often has. Patient didn't know that he had a fever but when I took his oral temperature was 101.0. Patient denies any abdominal pain patient denies nausea vomiting. Patient denies lightheadedness or dizziness. Patient denies any swelling to the legs or calf tenderness. (Shaan Redd) - Related Data Home Medications Medication Instructions Recorded Confirmed Ezetimibe [Zetia] 10 mg PO DAILY 02/13/16 07/30/21 atenoloL [Tenormin] 25 mg PO DAILY 02/13/16 07/30/21 Nitroglycerin Sl Tabs [Nitrostat] 0.4 mg SUBLINGUAL Q5M PRN 06/22/16 07/30/21 clonazePAM [KlonoPIN] 0.5 mg PO DAILY PRN 06/22/16 07/30/21 Clopidogrel [Plavix] 75 mg PO HS 10/20/19 07/30/21 Rosuvastatin [Crestor] 10 mg PO HS 10/20/19 07/30/21 Montelukast Sodium [Singulair] 10 mg PO HS 06/22/20 07/30/21 DULoxetine HCL [Cymbalta] 60 mg PO DAILY 07/19/21 07/30/21 polyethylene glycoL 3350 [Miralax] 2 tbsp PO DAILY 07/30/21 07/30/21 Previous Rx's Medication Instructions Recorded Furosemide [Lasix] 20 mg PO DAILY #30 tab 06/25/16 Budesonide [Pulmicort] 1 mg INHALATION RT-BID 30 Days #30 07/21/21 ml Ipratropium-Albuterol Nebulize 3 ml INHALATION RT-Q4H PRN ml 07/21/21 [Duoneb 0.5 mg-3 mg/3 ml Soln] Ipratropium-Albuterol Nebulize 3 ml INHALATION RT-QID 30 Days 07/21/21 [Duoneb 0.5 mg-3 mg/3 ml Soln] #120 ml guaiFENesin SYRUP 100MG/5ML 200 mg PO Q6HR PRN #100 ml 07/21/21 [Robitussin] Benzocaine/Menthol Lozeng [Cepacol 1 each MUCOUS MEM Q4HR PRN lozenge 08/02/21 lozenge] Doxycycline [Vibramycin] 100 mg PO BID 10 Days #20 capsule 08/02/21 predniSONE 0 mg PO DIRECTED 15 Days #30 tab 08/02/21 Allergies Allergy/AdvReac Type Severity Reaction Status Date / Time No Known Allergies Allergy Verified 03/06/22 13:51 Review of Systems ROS Other: All systems not noted in ROS Statement are negative. <Shaan Redd - Last Filed: 03/06/22 14:58> ROS Other: All systems not noted in ROS Statement are negative. <Jesse Scherer - Last Filed: 03/06/22 16:53> ROS Statement: Those systems with pertinent positive or pertinent negative responses have been documented in the HPI. Past Medical History Past Medical History: Coronary Artery Disease (CAD), Heart Failure, COPD, Hyperlipidemia, Hypertension, Sleep Apnea/CPAP/BIPAP Additional Past Medical History / Comment(s): COPD, obesity, coronary artery disease with previous bypass surgery, cataracts, hiatal hernia, obstructive sleep apnea for which the patient needs to be reevaluated for CPAP therapy. His latest sleep evaluation was done many years back. 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 LIVES WITH HIS OF 55 YEARS IN A SINGLE LEVEL HOME THAT HAS [address]PS. 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 NO OUT SIDE SERVICES RECIEVED. HAS A NEBULIZER. NO SERVICE IN PAST. RETIRED FROM [employer] [facility]. THEY HAVE 1 PET DOG. Smoking Status: Former smoker Past Alcohol Use History: Occasional Additional Past Alcohol Use History / Comment(s): Pt states he quit smoking almost 35 years ago. Past Drug Use History: None Reported Additional Drug Use History / Comment(s): QUIT MANY YEARS AGO. quit cigars 35 years ago - Past Family History Father Family Medical History: Hyperlipidemia, Myocardial Infarction ([place]) Additional Family Medical History / Comment(s): father and brothers(mi's in their 40's and 50's). Mother Family Medical History: CVA/TIA Additional Family Medical History / Comment(s): at age 99 3/4 from a stoke <Shaan Redd - Last Filed: 03/06/22 14:58> General Exam <Shaan Redd - Last Filed: 03/06/22 14:58> - General Exam Comments Initial Comments: GENERAL: Patient is well-developed and well-nourished. Patient is nontoxic and well- hydrated and is in mild distress. Oral temperature is 101.0 ENT: Neck is soft and supple. No significant lymphadenopathy is noted. Oropharynx is clear. Moist mucous membranes. Neck has full range of motion without eliciting any pain. EYES: The sclera were anicteric and conjunctiva were pink and moist. Extraocular movements were intact and pupils were equal round and reactive to light. Eyelids were unremarkable. PULMONARY: Patient has crackles in the bilateral bases CARDIOVASCULAR: There is a regular rate and rhythm without any murmurs gallops or rubs. ABDOMEN: Soft and nontender with normal bowel sounds. SKIN: Skin is clear with no lesions or rashes and otherwise unremarkable. NEUROLOGIC: Patient is alert and oriented x3. Cranial nerves II through XII are grossly intact. Motor and sensory are also intact. Normal speech, volume and content. Symmetrical smile. MUSCULOSKELETAL: Normal extremities with adequate strength and full range of motion. LYMPHATICS: No significant lymphadenopathy is noted PSYCHIATRIC: Normal psychiatric evaluation. (Shaan Redd) Course Vital Signs 03/06/22 03/06/22 03/06/22 13:46 13:51 15:21 Temperature 101.0 F H 99.1 F Pulse Rate 107 H 100 Respiratory 22 22 18 Rate Blood Pressure 156/83 151/60 O2 Sat by Pulse 93 L 95 Oximetry 03/06/22 16:37 Temperature Pulse Rate 102 H Respiratory 16 Rate Blood Pressure 134/91 O2 Sat by Pulse 100 Oximetry Medical Decision Making - Lab Data Result diagrams: 03/06/22 13:54 <Shaan Redd - Last Filed: 03/06/22 14:58> - Lab Data Result diagrams: 03/06/22 13:54 03/06/22 15:18 <Jesse Scherer - Last Filed: 03/06/22 16:53> - Medical Decision Making EKG shows sinus tachycardia at 111 bpm VT interval 163 QRSs 137 QT interval is 297 QTC is 362. Patient's EKG shows a right bundle branch block X-ray showed bilateral lower lobe pneumonia. Patient received Rocephin. Dr. scherer taking over the care of this patient at 3 PM (Shaan Redd) the patient's was passed over from previous shift. The patient was seen and examined. He relates that he has had the difficulty in breathing for the last 2 days. He has had shortness of breath as well as a cough with yellowish production. He states it is felt extremely weak as well. He is a fever of 101 in the emergency department. The covert and influenza test are negative. The x-ray shows pneumonia. Laboratory shows a leukocytosis but otherwise was ess entially within normal limits. EKG shows some tachycardia. His pulse ox decreased to 93% on room air he is placed on oxygen. He received Zithromax and Rocephin intravenously. He also receives Tylenol orally and Solu-Medrol intravenously. He receives a DuoNeb breathing treatment. It is felt as though he would benefit from admission to the hospital. He also has underlying COPD. Case will be discussed with internal medicine in the near future. Patient is agreeable with admission. (Jesse Scherer) - Lab Data Lab Results 03/06/22 03/06/22 03/06/22 Range/Units 13:54 13:54 13:54 WBC 14.6 H (3.8-10.6) k/uL RBC 4.68 (4.30-5.90) m/uL Hgb 15.2 (13.0-17.5) gm/dL Hct 44.7 (39.0-53.0) % MCV 95.5 (80.0-100.0) fL MCH 32.4 (25.0-35.0) pg MCHC 33.9 (31.0-37.0) g/dL RDW 13.6 (11.5-15.5) % Plt Count 165 (150-450) k/uL MPV 10.5 Neutrophils % 88 % Lymphocytes % 5 % Monocytes % 5 % Eosinophils % 1 % Basophils % 0 % Neutrophils # 12.8 H (1.3-7.7) k/uL Lymphocytes # 0.7 L (1.0-4.8) k/uL Monocytes # 0.7 (0-1.0) k/uL Eosinophils # 0.2 (0-0.7) k/uL Basophils # 0.0 (0-0.2) k/uL PT 10.6 (9.0-12.0) sec INR 1.0 (<1.2) APTT 24.4 (22.0-30.0) sec Sodium (137-145) mmol/L Potassium (3.5-5.1) mmol/L Chloride (98-107) mmol/L Carbon Dioxide (22-30) mmol/L Anion Gap mmol/L BUN (9-20) mg/dL Creatinine (0.66-1.25) mg/dL Est GFR (CKD-EPI)AfAm (>60 ml/min/1.73 sqM) Est GFR (CKD-EPI)NonAf (>60 ml/min/1.73 sqM) Glucose (74-99) mg/dL Calcium (8.4-10.2) mg/dL Total Bilirubin (0.2-1.3) mg/dL AST (17-59) U/L ALT (4-49) U/L Alkaline Phosphatase (38-126) U/L Total Protein (6.3-8.2) g/dL Albumin (3.5-5.0) g/dL Coronavirus (PCR) (Not Detectd) Influenza Type A RNA Not Detected (Not Detectd) Influenza Type B (PCR) Not Detected (Not Detectd) 03/06/22 03/06/22 Range/Units 13:54 15:18 WBC (3.8-10.6) k/uL RBC (4.30-5.90) m/uL Hgb (13.0-17.5) gm/dL Hct (39.0-53.0) % MCV (80.0-100.0) fL MCH (25.0-35.0) pg MCHC (31.0-37.0) g/dL RDW (11.5-15.5) % Plt Count (150-450) k/uL MPV Neutrophils % % Lymphocytes % % Monocytes % % Eosinophils % % Basophils % % Neutrophils # (1.3-7.7) k/uL Lymphocytes # (1.0-4.8) k/uL Monocytes # (0-1.0) k/uL Eosinophils # (0-0.7) k/uL Basophils # (0-0.2) k/uL PT (9.0-12.0) sec INR (<1.2) APTT (22.0-30.0) sec Sodium 133 L (137-145) mmol/L Potassium 4.1 (3.5-5.1) mmol/L Chloride 100 (98-107) mmol/L Carbon Dioxide 23 (22-30) mmol/L Anion Gap 10 mmol/L BUN 20 (9-20) mg/dL Creatinine 1.01 (0.66-1.25) mg/dL Est GFR (CKD-EPI)AfAm 80 (>60 ml/min/1.73 sqM) Est GFR (CKD-EPI)NonAf 70 (>60 ml/min/1.73 sqM) Glucose 134 H (74-99) mg/dL Calcium 8.5 (8.4-10.2) mg/dL Total Bilirubin 1.5 H (0.2-1.3) mg/dL AST 29 (17-59) U/L ALT 34 (4-49) U/L Alkaline Phosphatase 68 (38-126) U/L Total Protein 6.8 (6.3-8.2) g/dL Albumin 4.0 (3.5-5.0) g/dL Coronavirus (PCR) Not Detected (Not Detectd) Influenza Type A RNA (Not Detectd) Influenza Type B (PCR) (Not Detectd) Disposition <Shaan Redd - Last Filed: 03/06/22 14:58> Is patient prescribed a controlled substance at d/c from ED?: No Time of Disposition: 16:53 Decision Date: 03/06/22 Decision Time: 16:53 <Jesse Scherer - Last Filed: 03/06/22 16:53> Clinical Impression: Pneumonia, Dyspnea, COPD (chronic obstructive pulmonary disease), Weakness, Fever, Leukocytosis Disposition: ADMITTED IP TO THIS HOSP Condition: Fair Referrals: Shiva Sullivan MD [Primary Care Provider] - 1-2 days
[2022-03-06 14:27] LABS: Basophils % (A) 0 %; Eosinophils # (A) 0.2 k/uL (0-0.7); Eosinophils % (A) 1 %; HCT 44.7 % (39.0-53.0); HGB 15.2 gm/dL (13.0-17.5); Lymphocytes # (A) 0.7 k/uL (1.0-4.8); Lymphocytes % (A) 5 %; MCH 32.4 pg (25.0-35.0); MCHC 33.9 g/dL (31.0-37.0); MCV 95.5 fL (80.0-100.0); Mean Platelet Volume 10.5; Monocytes # (A) 0.7 k/uL (0-1.0); Monocytes % (A) 5 %; Neutrophils # (A) 12.8 k/uL (1.3-7.7); Neutrophils % (A) 88 %; Platelet Count 165 k/uL (150-450); RBC 4.68 m/uL (4.30-5.90); RDW 13.6 % (11.5-15.5); WBC 14.6 k/uL (3.8-10.6)
--- NOTE | 2022-03-06 14:49 | XR ---
EXAMINATION TYPE: XR chest 2V DATE OF EXAM: 03/06/2022 COMPARISON: 07/31/2021 TECHNIQUE: PA and lateral views submitted. HISTORY: Fever and shortness of breath FINDINGS: The lungs are clear and there is no pneumothorax or pleural effusion. Subsegmental changes lung base s.. Postsurgical change with coarsened interstitium. Bilateral pleural thickening. Arthropathy of th e shoulders. Hypertrophic and degenerative changes spine. IMPRESSION: 1. Correlate for chronic interstitial lung disease. Superimposed interstitial pneumonitis not exclude d. Basilar atelectasis favored over pneumonia..
[2022-03-06] MEDS ORDERED: cefTRIAXone IN SWFI 1,000 MG/10 ML SYRINGE IVP STA (14:59)
[2022-03-06 15:04] LABS: Partial Thromboplastin Time 24.4 sec (22.0-30.0); Prothrombin Time 10.6 sec (9.0-12.0)
[2022-03-06 15:49] LABS: Calcium 8.5 mg/dL (8.4-10.2); Potassium 4.1 mmol/L (3.5-5.1); Total Bilirubin 1.5 mg/dL (0.2-1.3); Total Protein 6.8 g/dL (6.3-8.2)
[2022-03-06] MEDS ORDERED: AZITHROMYCIN 500 MG in SODIUM CHLORIDE 0.9% 250 ML IVPB STA (16:40)
[2022-03-06] MEDS ORDERED: IPRATROPIUM-ALBUTEROL 3 ML NEB INHALATION STA (16:47)
[2022-03-06] MEDS ORDERED: ACETAMINOPHEN TAB 500 MG TAB PO PRN (16:49)
[2022-03-06] MEDS ORDERED: PNEUMONIA PROTOCOL UTILIZED 1 EACH MISC PO PRN (16:53)
[2022-03-06] MEDS ORDERED: SODIUM CHLORIDE 0.9% 1,000 ML IV STA ×2 (16:57→16:58)
[2022-03-06] MEDS: methylPREDNISolone SOD SUCCI 125 MG/2 ML VIAL IV SCH ×2 (17:08→22:15)
[2022-03-06] MEDS ORDERED: ACETAMINOPHEN TAB 325 MG TAB PO PRN (17:17)
--- NOTE | 2022-03-06 17:44 | P.HPIM ---
History of Present Illness Chief Complaint: Productive cough, fever and dyspnea This is a very pleasant 82-year-old male with history of COPD, bronchiectasis, interstitial lung disease, coronary artery disease, CABG, on 2 lpm home oxygen, who came in for evaluation of shortness of breath, cough productive of yellow sputum and fever. Patient states that he has some baseline chronic dyspnea but over the last couple days it became worse than usual. Day prior admission he started developing chills malaise and fever up to 101. He was also having cough with expectoration of yellow nonbloody sputum. No chest pressure however he did have some chest discomfort with cough and deep respiratory movements. In view of that he came to ER. Chest x-ray showed increased interstitial lung markings suspicious for interstitial lung disease and infiltrate in the right lower lobe. Patient has fever 101 in emergency department. White blood cell count 14.9 and lactic acid of 2.8. He was placed in supplemental oxygen, give IV fluids, steroids breathing treatments and antibiotics and he is doing better. He is being now admitted for further management of his pneumonia. Patient denied any leg swelling, orthopnea, diarrhea abdominal pain and back pain nausea or vomiting. He believes that he might have had sick contact with somebody with COVID-19. His COVID-19 influenza tests were negative. Denies any recent traveling Review of Systems Constitutional: Denies chronic pain, Denies night sweats, Denies poor appetite, Denies weakness, Denies weight loss Ears, nose, mouth and throat: Denies as per HPI, Denies ant. neck pain, Denies bleeding gums, Denies dental pain, Denies dysphagia, Denies epistaxis, Denies headache, Denies hoarseness, Denies mouth pain, Denies nasal congestion, Denies nasal discharge, Denies neck fullness/pressure, Denies neck lump, Denies nose pain, Denies odynophagia, Denies post-nasal drip, Denies sinus pain, Denies sinus pressure, Denies swelling in mouth, Denies swelling in throat, Denies sore throat, Denies vertigo, Denies voice changes Cardiovascular: Denies as per HPI, Denies chest pain, Denies claudication, Gavino es decreased exercise tolerance, Denies dyspnea on exertion, Denies edema, Denies high blood pressure, Denies irregular heart beat, Denies leg edema, Denies lightheadedness, Denies orthopnea, Denies palpitations, Denies paroxysmal nocturnal dyspnea, Denies phlebitis, Denies rapid heart beat, Denies shortness of breath, Denies syncope Respiratory: Reports as per HPI Gastrointestinal: Denies as per HPI, Denies abdominal pain, Denies belching, Denies bloating, Denies BRBPR, Denies change in bowel habits, Denies coffee ground emesis, Denies constipation, Denies diarrhea, Denies dyspepsia, Denies early satiety, Denies excessive gas, Denies heartburn, Denies hematemesis, Denies hematochezia, Denies indigestion, Denies jaundice, Denies lactose int olerance, Denies loss of appetite, Denies melena, Denies nausea, Denies vomiting Genitourinary: Denies as per HPI, Denies decreased libido, Denies difficulties fathering child, Denies discharge, Denies dysuria, Denies erectile dysfunction, Denies flank pain, Denies genital pain, Denies genital sores, Denies hematuria, Denies impotence, Denies incontinence, Denies kidney stones, Denies nocturia, Denies polyuria, Denies testicular lump, Denies testicular pain, Denies urinary frequency, Denies urinary hesitancy, Denies urinary retention Musculoskeletal: Denies as per HPI, Denies arm numbness/tingling, Denies atrophy, Denies fractures, Denies frequent falls, Denies gait dysfunction, Denies hot joints, Denies leg numbness/tingling, Denies limitation of motion, Denies loss of height, Denies low back pain, Denies morning stiffness, Denies muscle cramps, Denies muscle weakness, Denies myalgias, Denies neck pain, Denies neck stiffness, Denies prior amputations, Denies redness of joints, Denies shooting arm pain, Denies shooting leg pain Integumentary: Denies as per HPI, Denies acne, Denies boils, Denies brittle nails, Denies change in hair/nails, Denies color changes, Denies darkening of skin, Denies depigmentation, Denies dryness, Denies foot/leg ulcers, Denies growths, Denies hirsutism, Denies lesions, Denies onychomycosis, Denies pruritus, Denies rash, Denies sores, Denies striae, Denies unusual bruising, De nies wounds Neurological: Denies as per HPI, Denies aphasia, Denies ataxia, Denies balance difficulties, Denies burning pain, Denies change in mentation, Denies change in smell/taste, Denies change in speech, Denies confusion, Denies convulsions, Denies double vision, Denies gait dysfunction, Denies head injury, Denies headaches, Denies hearing difficulties, Denies lack of coordination, Denies loss of vision, Denies memory loss, Denies migraines, Denies motor disturbance, Denies numbness, Denies paralysis, Denies paresthesias, Denies seizures, Denies sensory deficit, Denies spasticity, Denies syncope, Denies tic, Denies tingling, Denies transient paralysis, Denies tremors, Denies vertigo, Denies weakness, Denies visual changes Psychiatric: Denies as per HPI, Denies anhedonia, Denies anxiety, Denies anxiety attacks, Denies change in appetite, Denies change in libido, Denies change in sleep habits, Denies confusion, Denies depression, Denies difficulty concentrating, Denies disorientation, Denies hallucinations, Denies hopelessness, Denies hypersomnia, Denies insomnia, Denies irritability, Denies memory loss, Denies mood swings, Denies paranoia, Denies sadness/tearfulness, Denies sleep disturbances, Denies suicidal ideation Endocrine: Denies as per HPI, Denies cold intolerance, Denies deepening of the voice, Denies excessive sweating, Denies excessive thirst, Denies fatigue, Denies flushing, Denies heat intolerance, Denies high blood sugars, Denies increase in ring/shoe/hat size, Denies low blood sugars, Denies nocturia, Denies palpitations, Denies polydipsia, Denies polyphagia, Denies polyuria, Denies proptosis, Denies recent glucocorticoid use, Denies thyroid mass, Denies weight change Hematologic/Lymphatic: Denies as per HPI, Denies easy bleeding, Denies easy bruising, Denies lymphadenopathy, Denies lymphedema, Denies thrombophilia Allergic/Immunologic: Denies as per HPI, Denies allergic rhinitis, Denies anaphylaxis, Denies angioedema, Denies gluten intolerance, Denies persistent infections, Denies seasonal allergies, Denies urticaria, Denies wheezing Past Medical History Past Medical History: Coronary Artery Disease (CAD), Heart Failure, COPD, Hyperlipidemia, Hypertension, Sleep Apnea/CPAP/BIPAP Additional Past Medical History / Comment(s): COPD, obesity, coronary artery disease with previous bypass surgery, cataracts, hiatal hernia, obstructive sleep apnea for which the patient needs to be reevaluated for CPAP therapy. His latest sleep evaluation was done many years back. 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 LIVES WITH HIS OF 55 YEARS IN A SINGLE LEVEL HOME THAT HAS 4 PORCH STEPS. 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 NO OUT SIDE SERVICES RECIEVED. HAS A NEBULIZER. NO SERVICE IN PAST. RETIRED FROM [employer]. THEY HAVE 1 PET DOG. Smoking Status: Former smoker Past Alcohol Use History: Occasional Additional Past Alcohol Use History / Comment(s): Pt states he quit smoking almost 35 years ago. Past Drug Use History: None Reported Additional Drug Use History / Comment(s): QUIT MANY YEARS AGO. quit cigars 35 years ago - Past Family History Father Family Medical History: Hyperlipidemia, Myocardial Infarction ([place]) Additional Family Medical History / Comment(s): father and brothers(mi's in their 40's and 50's). Mother Family Medical History: CVA/TIA Additional Family Medical History / Comment(s): at age 99 3/4 from a stoke Medications and Allergies Home Medications Medication Instructions Recorded Confirmed Type Ezetimibe [Zetia] 10 mg PO DAILY 02/13/16 07/30/21 History atenoloL [Tenormin] 25 mg PO DAILY 02/13/16 07/30/21 History Nitroglycerin Sl Tabs [Nitrostat] 0.4 mg SUBLINGUAL Q5M PRN 06/22/16 07/30/21 History clonazePAM [KlonoPIN] 0.5 mg PO DAILY PRN 06/22/16 07/30/21 History Furosemide [Lasix] 20 mg PO DAILY #30 tab 06/25/16 07/30/21 Rx Clopidogrel [Plavix] 75 mg PO HS 10/20/19 07/30/21 History Rosuvastatin [Crestor] 10 mg PO HS 10/20/19 07/30/21 History Montelukast Sodium [Singulair] 10 mg PO HS 06/22/20 07/30/21 History DULoxetine HCL [Cymbalta] 60 mg PO DAILY 07/19/21 07/30/21 History Budesonide [Pulmicort] 1 mg INHALATION RT-BID 30 Days #30 07/21/21 07/30/21 Rx ml Ipratropium-Albuterol Nebulize 3 ml INHALATION RT-Q4H PRN ml 07/21/21 07/30/21 Rx [Duoneb 0.5 mg-3 mg/3 ml Soln] Ipratropium-Albuterol Nebulize 3 ml INHALATION RT-QID 30 Days 07/21/21 07/30/21 Rx [Duoneb 0.5 mg-3 mg/3 ml Soln] #120 ml guaiFENesin SYRUP 100MG/5ML 200 mg PO Q6HR PRN #100 ml 07/21/21 07/30/21 Rx [Robitussin] polyethylene glycoL 3350 [Miralax] 2 tbsp PO DAILY 07/30/21 07/30/21 History Benzocaine/Menthol Lozeng [Cepacol 1 each MUCOUS MEM Q4HR PRN lozenge 08/02/21 Rx lozenge] Doxycycline [Vibramycin] 100 mg PO BID 10 Days #20 capsule 08/02/21 Rx predniSONE 0 mg PO DIRECTED 15 Days #30 tab 08/02/21 Rx Allergies Allergy/AdvReac Type Severity Reaction Status Date / Time No Known Allergies Allergy Verified 03/06/22 13:51 Physical Exam Vitals: Vital Signs Temp Pulse Resp BP Pulse Ox 03/06/22 17:20 98 16 117/97 97 03/06/22 16:37 102 H 16 134/91 100 06/21/22 15:21 99.1 F 100 18 151/60 95 03/06/22 13:51 22 03/06/22 13:46 101.0 F H 107 H 22 156/83 93 L Intake and Output 03/06/22 03/06/22 03/06/22 06:59 14:59 22:59 Other: Weight 106.594 kg Awake alert oriented 3, no acute distress Head and neck: Anicteric sclera, extraocular movements intact, no facial asymmetry, oropharyngeal mucosa is moist without any lesions, neck is supple without rigidity, no neck masses or neck vein distention Heart: Regular rhythm and rate, S1, S2; no murmurs rubs or gallops Lungs: Breath sounds present bilateral, inspiratory wheezes and good basilar crackles noted Abdomen: Bowel sounds present throughout, abdomen is soft, nontender, nondistended, no involuntary guarding, no hernias or organomegaly, no flank tenderness Extremities: No peripheral edema, no cyanosis, warm well perfused with palpable dorsalis pedis pulses bilateral and good capillary refill, without joint swell ing or deformities Neurological: No deficits; Musko skeletal no joint swelling or clubbing; skin without any rashes or bruising Results CBC & Chem 7: 03/06/22 13:54 03/06/22 15:18 Labs: Abnormal Lab Results - Last 24 Hours (Table) 03/06/22 03/06/22 03/06/22 Range/Units 13:54 15:18 16:32 WBC 14.6 H (3.8-10.6) k/uL Neutrophils # 12.8 H (1.3-7.7) k/uL Lymphocytes # 0.7 L (1.0-4.8) k/uL Sodium 133 L (137-145) mmol/L Glucose 134 H (74-99) mg/dL Plasma Lactic Acid Ronaldo 2.8 H* (0.7-2.0) mmol/L Total Bilirubin 1.5 H (0.2-1.3) mg/dL Assessment and Plan Assessment: #Community-acquired pneumonia with sepsis Tachycardia, fever 101, leukocytosis, lactic acidosis Suspected exacerbation of bronchiectasis Previous sputum culture was negative for Pseudomonas and staph aureus Continue ceftriaxone and Zithromax Obtain blood cultures, sputum cultures, MRSA nasal screening, Legionella Pulmonary consultation Continue IV fluids, a measure lactic acid #COPD exacerbation Continue systemic steroids, bronchodilators #Acute on chronic hypoxic respiratory failure Continue supplemental oxygen, incentive spirometer, encourage out of bed #History of coronary artery disease Continue home medications: Beta yara, statin and Plavix Echo 08/05: EF 6065 percent, some diastolic dysfunction, mild aortic stenosis Obtain proBNP #DVT prophylaxis: Subcu Lovenox Patient is a full code Home medications and plan of care discussed with the patient in detail Will need more than 2 minutes hospital stay Home medication list is currently being updated and reconciliation will be done once accurate home medications and 13 to the patient's chart
[2022-03-06] MEDS ORDERED: clonazePAM 0.5 MG TAB PO PRN (19:26)
[2022-03-06] MEDS ORDERED: IPRATROPIUM-ALBUTEROL 3 ML NEB INHALATION PRN (19:26)
[2022-03-06] MEDS: IPRATROPIUM-ALBUTEROL 3 ML NEB INHALATION SCH (20:04)
[2022-03-06 20:29] LABS: Appearance,Urine Clear (Clear); Bilirubin,Urine Negative (Negative); Blood,Urine Negative (Negative); Color,Urine Yellow; Glucose,Urine (UA) 2+ (Negative); Ketones,Urine Negative (Negative); Leukocyte Esterase,Urine Negative (Negative); Nitrite,Urine Negative (Negative); PH, Urine 5.5 (5.0-8.0); Protein,Urine Negative (Negative); Specific Gravity,Urine 1.008 (1.001-1.035); Urobilinogen,Urine <2.0 mg/dL (<2.0)
[2022-03-06] MEDS: ATORVASTATIN 20 MG TAB PO SCH (22:16)
[2022-03-06] MEDS: CLOPIDOGREL 75 MG TAB PO SCH (22:16)
[2022-03-07] MEDS: IPRATROPIUM-ALBUTEROL 3 ML NEB INHALATION SCH ×6 (01:10→19:12)
[2022-03-07] MEDS ORDERED: SYMBICORT 80-4.5 MCG INHALER INHALATION SCH (08:00)
[2022-03-07 09:57] LABS: African American GFR (CKD) 81.4 (60.0-200.0); Anion Gap 14.5 mmol/L (10.00-18.00); BUN/Creat Ratio 16.7 Ratio (12.00-20.00); Blood Urea Nitrogen 16.7 mg/dL (9.0-27.0); Carbon Dioxide 19.5 mmol/L (20.0-27.5); Non-African American GFR(CKD) 70.3 (60.0-200.0); Potassium 4.4 mmol/L (3.5-5.5)
[2022-03-07 10:03] LABS: HCT 42.3 % (39.6-50.0); HGB 14.1 g/dL (13.0-17.0); MCH 31.1 pg (27.0-32.0); MCHC 33.3 g/dL (32.0-37.0); MCV 93.4 fL (80.0-97.0); Mean Platelet Volume 12.8 fL (9.5-12.2); NRBC Per 100 WBC 0 /100 WBCS (0.0-0.0); Platelet Count 135 X 10*3/uL (140-440); RBC 4.53 X 10*6/uL (4.40-5.60); RDW 13.2 % (11.5-14.5); WBC 12.58 X 10*3/uL (4.50-10.00)
[2022-03-07] MEDS ORDERED: NITROGLYCERIN SL TABS 0.4 MG TAB SUBLINGUAL PRN (10:03)
[2022-03-07 10:04] LABS: Acanthocytes 2+
[2022-03-07] MEDS ORDERED: ONDANSETRON 4 MG/2 ML VIAL IVP PRN (10:22)
[2022-03-07] MEDS: atenoloL 25 MG TAB PO SCH (10:23)
[2022-03-07] MEDS: EZETIMIBE 10 MG TAB PO SCH (10:23)
[2022-03-07] MEDS: MONTELUKAST 10 MG TAB PO SCH (10:23)
[2022-03-07] MEDS: DULoxetine HCL 60 MG CAPSULE.DR PO SCH (10:23)
[2022-03-07] MEDS: ENOXAPARIN 40 MG/0.4 ML SYRINGE SQ SCH (10:23)
[2022-03-07] MEDS: FUROSEMIDE 20 MG TAB PO SCH (10:23)
[2022-03-07] MEDS: methylPREDNISolone SOD SUCCI 125 MG/2 ML VIAL IV SCH ×3 (11:28→23:42)
[2022-03-07] MEDS: PANTOPRAZOLE 40 MG/10 ML VIAL IVP SCH ×2 (11:28→22:06)
--- NOTE | 2022-03-07 12:16 | P.CNPUL ---
History of Present Illness Consult date: 03/07/22 Requesting physician: Sinan Frazier Reason for consult: dyspnea, COPD Chief complaint: Shortness of breath, cough, congestion History of present illness: Physical very pleasant 82-year-old male patient with a known history of obstructive sleep apnea, coronary artery disease with previous coronary artery bypass grafting, previous PCI and stenting, hypertension, hyperlipidemia, anxiety/depression, previous chronic tobacco dependence but quit over 30 years ago. He does have COPD and follows with Dr. Abrams in our office. He has been maintained on DuoNeb inhalations, Trelegy, Singulair. He presented here to the emergency room yesterday after he woke up feeling more short of breath than his usual.. He was concerned because he did get exposed to a [facility] patient. He did have a T-max of 101. His current virus by PCR was negative. Influenza screen negative. Chest x-ray revealed chronic interstitial lung disease. Superimposed interstitial pneumonitis not excluded. Basilar atelectasis favored over pneumonia. White count 12.5. Hemoglobin 14.1. Platelet count 135. Sodium 136. Potassium 4.4. BUN 17. Creatinine 1.0. ProBNP 77. Troponin 0.029. Pro-calcitonin 0.40. He's been initiated on azithromycin, ceftriaxone, DuoNeb inhalations, Symbicort, IV Solu-Medrol. He is seen today in consultation on the regular medical floor. He is currently sitting up in bed. Awake and alert in no acute distress. He has a dry nonproductive cough. Some dyspnea on conversation. Continue O2 saturations in the mid 90s on 2 L/m per nasal cannula. He does have home oxygen that he uses as needed. Review of Systems REVIEW OF SYSTEMS: CONSTITUTIONAL: Denies any recent significant weight loss or weight gain. EYES: Denies change in vision. EARS, NOSE, MOUTH, THROAT: Denies headaches, denies sore throat. CARDIOVASCULAR: Denies chest pain, palpitations or syncopal episodes. RESPIRATORY: Positive for shortness of breath, cough, congestion no hemoptysis. GASTROINTESTINAL: Denies change in appetite, denies abdominal pain GENITOURINARY: Denies hematuria, denies infections. MUSKULOSKELETAL: Denies pain, denies swelling. INTEGUMENTARY: Denies rash, denies eczema. NEUROLOGICAL: Denies recent memory loss, no recent seizure activity. PSYCHIATRIC: Denies anxiety, denies depression. HEMATOLOGIC/LYMPHATIC: Denies anemia, denies enlarged lymph nodes. Past Medical History Past Medical History: Coronary Artery Disease (CAD), Heart Failure, COPD, Hyperlipidemia, Hypertension, Sleep Apnea/CPAP/BIPAP Additional Past Medical History / Comment(s): COPD, obesity, coronary artery disease with previous bypass surgery, cataracts, hiatal hernia, obstructive sleep apnea with CPAP therapy. 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 LIVES WITH HIS OF 55 YEARS IN A SINGLE LEVEL HOME THAT HAS 4 [address] STEPS. NO OUTSIDE SERVICES RECIEVED. HAS A NEBULIZER. NO SERVICE IN PAST. RETIRED FROM [employer]. THEY HAVE 1 PET DOG. Smoking Status: Former smoker Past Alcohol Use History: Occasional Additional Past Alcohol Use History / Comment(s): Pt states he quit smoking almost 35 years ago. Smoked cigars Past Drug Use History: None Reported Additional Drug Use History / Comment(s): QUIT MANY YEARS AGO. quit cigars 35 years ago - Past Family History Father Family Medical History: Hyperlipidemia, Myocardial Infarction ([place]) Additional Family Medical History / Comment(s): father and brothers(mi's in their 40's and 50's). Mother Family Medical History: CVA/TIA Additional Family Medical History / Comment(s): at age 99 3/4 from a stoke Medications and Allergies Home Medications Medication Instructions Recorded Confirmed Type Ezetimibe [Zetia] 10 mg PO DAILY 02/13/16 03/06/22 History atenoloL [Tenormin] 25 mg PO DAILY 02/13/16 03/06/22 History Nitroglycerin Sl Tabs [Nitrostat] 0.4 mg SUBLINGUAL Q5M PRN 06/22/16 03/06/22 History clonazePAM [KlonoPIN] 0.5 mg PO DAILY PRN 06/22/16 03/06/22 History Furosemide [Lasix] 20 mg PO DAILY #30 tab 06/25/16 03/06/22 Rx Clopidogrel [Plavix] 75 mg PO DAILY 10/20/19 03/06/22 History Rosuvastatin [Crestor] 10 mg PO DAILY 10/20/19 03/06/22 History Montelukast Sodium [Singulair] 10 mg PO DAILY 06/22/20 03/06/22 History DULoxetine HCL [Cymbalta] 60 mg PO DAILY 07/19/21 03/06/22 History Fluticasone/Umeclidin/Vilanter 1 puff INHALATION RT-DAILY 03/06/22 03/06/22 History [Trelelizandro Ellipta 100-62.5-25] Ipratropium-Albuterol Nebulize 3 ml INHALATION RT-QID PRN 03/06/22 03/06/22 History [Duoneb 0.5 mg-3 mg/3 ml Soln] predniSONE 5 mg PO DAILY 03/06/22 03/06/22 History Allergies Allergy/AdvReac Type Severity Reaction Status Date / Time No Known Allergies Allergy Verified 03/06/22 13:51 Physical Exam Vitals: Vital Signs Temp Pulse Pulse Resp BP BP Pulse Ox 03/07/22 09:30 79 166/79 03/07/22 08:32 94 03/07/22 08:21 91 95 03/07/22 06:01 98 F 100 18 165/77 96 03/07/22 05:00 96 03/07/22 04:50 92 03/07/22 01:37 100 03/07/22 01:12 96 03/06/22 20:39 98.1 F 93 16 134/79 95 03/06/22 20:00 93 16 03/06/22 18:49 95 16 130/64 97 03/06/22 17:50 104 H 03/06/22 17:40 103 H 95 03/06/22 17:20 98 16 117/97 97 03/06/22 16:37 102 H 16 134/91 100 03/06/22 15:21 99.1 F 100 18 151/60 95 03/06/22 13:51 22 03/06/22 13:46 101.0 F H 107 H 22 156/83 93 L Intake and Output 03/06/22 03/07/22 03/07/22 22:59 06:59 14:59 Intake Total 658 Balance 658 Intake: Oral 658 GENERAL EXAM: Alert, very pleasant 82-year-old male patient, on 2 L nasal cannula, fairly comfortable in no apparent distress. HEAD: Normocephalic. EYES: Normal reaction of pupils, equal size. NOSE: Clear with pink turbinates. THROAT: No erythema or exudates. NECK: No masses, no JVD. CHEST: No chest wall deformity. LUNGS: Equal air entry with bilateral end x-ray wheeze, diminished. CVS: S1 and S2 normal with no audible murmur, regular rhythm. ABDOMEN: No hepatosplenomegaly, normal bowel sounds, no guarding or rigidity. SPINE: No scoliosis or deformity SKIN: No rashes CENTRAL NERVOUS SYSTEM: No focal deficits, tone is normal in all 4 extremities. EXTREMITIES: There is no peripheral edema. No clubbing, no cyanosis. Peripheral pulses are intact. Results - Laboratory Findings CBC and BMP: 03/07/22 05:59 03/07/22 05:59 PT/INR, D-dimer PT 10.6 sec (9.0-12.0) 03/06/22 13:54 INR 1.0 (<1.2) 03/06/22 13:54 Abnormal lab findings: Abnormal Labs 03/06/22 03/06/22 03/06/22 13:45 13:54 15:18 WBC 14.6 H Plt Count Plt Count Comment MPV Neutrophils # 12.8 H Lymphocytes # 0.7 L Sodium 133 L Carbon Dioxide Glucose 134 H Plasma Lactic Acid Ronaldo Total Bilirubin 1.5 H Procalcitonin Urine Glucose (UA) 2+ H 03/06/22 03/06/22 03/07/22 16:32 19:35 05:59 WBC 12.58 H Plt Count 135 L Plt Count Comment DECREASED A MPV 12.8 H Neutrophils # Lymphocytes # Sodium Carbon Dioxide Glucose Plasma Lactic Acid Ronaldo 2.8 H* 2.7 H* Total Bilirubin Procalcitonin Urine Glucose (UA) 03/07/22 03/07/22 05:59 05:59 WBC Plt Count Plt Count Comment MPV Neutrophils # Lymphocytes # Sodium Carbon Dioxide 19.5 L Glucose 205 H Plasma Lactic Acid Ronaldo Total Bilirubin Procalcitonin 0.40 H Urine Glucose (UA) - Diagnostic Findings Chest x-ray: image reviewed Assessment and Plan Assessment: 1 Acute exacerbation of chronic obstructive pulmonary disease complicated by tracheobronchitis. Procalcitonin 0.4 2 History of COPD, has home oxygen 3 History of smoking for about 39 years, in remission for the past 30 years 4 Elevated d-dimer, with no CT evidence of pulmonary embolism 5 History of coronary artery disease with previous history of PCI, coronary stenting, and bypass surgery 6 Obstructive sleep apnea, patient needs to be re-evaluated for a CPAP device and outpatient basis 7 Obesity 8 Hiatal hernia 9 History of CHF with 10 Moderate degree of aortic stenosis 11 History of pulmonary fibrosis with traction bronchiectasis at the lung bases 12 Peripheral artery disease 13 Anxiety 14 Former smoker Plan: The patient was seen and evaluated Chest x-ray labs and medications reviewed Discontinue Symbicort, add Pulmicort and Perforomist Continue DuoNeb inhalations, IV Solu-Medrol Continue oral azithromycin Discontinue ceftriaxone Titrate the FiO2 as tolerated We will continue to follow and make further recommendations based on his clinical status I have personally seen and examined the patient, performed the documentation and the assessment and plan as written. Number of minutes spent on the visit: 20.
--- NOTE | 2022-03-07 14:18 | CT ---
EXAMINATION TYPE: CT abdomen pelvis wo con DATE OF EXAM: 03/07/2022 COMPARISON: CT dated 05/27/2018 HISTORY: Intractable vomiting, Abdominal pain CT DLP: 1060 mGycm Automated exposure control for dose reduction was used. TECHNIQUE: Helical acquisition of images was performed from the lung bases through the pelvis. FINDINGS: LUNG BASES: Bilateral basal chronic fibrotic changes, peripheral reticulations and traction bronchiec tasis, more on the right side. LIVER/GB: Signs of severe hepatic steatosis. No radiodense gallbladder calculi. PANCREAS: No significant abnormality is seen. SPLEEN: No significant abnormality is seen. ADRENALS: No significant abnormality is seen. KIDNEYS: Bilateral perinephric fat stranding and reactive fluid, nonspecific. Bilateral renal vascula r calcifications. Unremarkable kidneys otherwise. FREE AIR: No free air is visualized RETROPERITONEAL ADENOPATHY: None visualized REPRODUCTIVE ORGANS: Markedly enlarged prostate. Unremarkable seminal vesicles. URINARY BLADDER: Nonspecific wall thickening of the urinary bladder, please correlate with urinalysi s results. PELVIC ADENOPATHY: Subcentimeter bilateral external iliac lymph nodes, more on the left side, nonspe cific. OSSEOUS STRUCTURES: Left hip arthroplasty. Severe degenerative changes of the lower thoracic and lum bar spine. Previous lumbar spine surgery with soft tissue thickening at the operative bed. Tiny air b ubble is seen within the spinal canal opposite L4-5 level, possibly degenerative. Underlying infectio n cannot be excluded, please correlate clinically. No aggressive or destructive bone lesion. BOWEL: Unremarkable nondistended stomach, duodenum and small bowel. No evidence of bowel obstruction . No definite acute colonic abnormality identified. OTHER: Extensive arterial atherosclerotic calcifications. 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 No sizable ascites. Bilateral fat-containing inguinal hernias , slightly larger on the left side. IMPRESSION: Postoperative changes at the lumbar spine as described above. Tiny air bubble within the spinal canal opposite L4-5 level, possibly degenerative. Underlying infection cannot be excluded, please correlat e clinically. 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 No definite acute small or large bowel abnormality identified by this unenhanced CT scan. Other fi ndings as described above.
[2022-03-07] MEDS ORDERED: AZITHROMYCIN 500 MG in SODIUM CHLORIDE 0.9% 250 ML IVPB SCH (16:00)
[2022-03-07] MEDS: BUDESONIDE 1 MG/2 ML NEBU INHALATION SCH (19:12)
[2022-03-07] MEDS: FORMOTEROL FUMARATE 20 MCG/2 ML NEBU INHALATION SCH (19:12)
--- NOTE | 2022-03-07 21:41 | P.PN ---
Subjective Progress Note Date: 03/07/22 (starr charting seen at 1005) Patient is an 82-year-old male with COPD, bronchiectasis, interstitial lung disease, coronary artery disease, CABG, chornic hypoxia on 2 lpm home oxygenwho presetned to the ED with complaints of shortness of breath and fevers. In the ED he undewent an extensive evaluation. He was febrile to 101. Chest x-ray showed increased interstitial lung markings suspicious for interstitial lung disease and infiltrate in the right lower lobe. White blood cell count 14.9 and lactic acid of 2.8. He was placed in supplemental oxygen, give IV fluids, steroids breathing treatments and antibiotics and he is doing better. He was admitted for management of pneumonia. Pulm was consulted. Patient seen and exained at bedside. He c/o chest pain after multiple episode of nausea and vomiting this morning. He has some shrotness fo breath which is slightly worse than baseline, + Diaphoresis, + light headed, + nausea, and has chronic paresthesia in his left arm which are unchaged from baseline. He states that he would typically take a nitro for this at home. Stat EKG ordeered and reviewed conistent with his known RBBB, stat Troponin negative. He was given nitro and protonix. General: [nontoxic], [mild distress], [appears at stated age] Derm: [warm], diaphoretic Head: [atraumatic], [normocephalic], [symmetric] Eyes: [EOMI], [no lid lag], [anicteric sclera] Mouth: [no lip lesion], [mucus membranes dry, Cardiovascular: [S1S2 reg], [no murmur], [positive posterior tibial pulse bilateral], Lungs: [velcro wheeze bilateral], [no rhonchi, no rales] , [no accessory muscle use] Abdominal: [soft], [ nontender to palpation], [no guarding], [no appreciable organomegaly] Ext: [no gross muscle atrophy], [Traceedema], [no contractures] Neuro: [ CN II-XI grossly intact], [no focal neuro deficits] Psych: [Alert], [oriented], [appropriate affect] Assessment/Plan: Tracheobronchitis with sepsis Acute exacerbation of COPD, pulmonary fibrosis Chronic hypoxic respiratory failure - zithromax, stopped rocephin - pulm recs - await sputum culture and MRSA nasal swab - negative flu, covid, legionella - steroids - bronchdilators Chest pain, atypical Hx of CAD with history of PCI and bypass surgery Chronic diastolic CHF - EKG and trop negative - Likely costochondritis vs GERD - PPI ordered - BB, statin, plavix Intractable n/v - check CT abd//pelvis: timy air bubble L4/5 cannot cheryl out infection, 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 Obesity with BMI 35.7 - outpatient structured weight loss Obstructive sleep apnea, - Pulm recs: re-eval for a CPAP on outpatient basis Objective - Vital Signs Vital signs: Vital Signs Temp 97.8 F 03/07/22 21:00 Pulse 94 03/07/22 21:00 Resp 18 03/07/22 21:00 BP 170/80 03/07/22 21:00 Pulse Ox 93 L 03/07/22 21:00 FiO2 Intake & Output 03/07/22 03/07/22 03/08/22 06:59 18:59 06:59 Intake Total 776 Balance 776 Intake: Oral 776 Other: # Voids 2 # Bowel Movements 1 - Labs CBC & Chem 7: 03/07/22 05:59 03/07/22 05:59 Labs: Abnormal Lab Results - Last 24 Hours (Table) 03/07/22 03/07/22 03/07/22 Range/Units 05:59 05:59 05:59 WBC 12.58 H (4.50-10.00) X 10*3/uL Plt Count 135 L (140-440) X 10*3/uL Plt Count Comment DECREASED A MPV 12.8 H (9.5-12.2) fL Carbon Dioxide 19.5 L (20.0-27.5) mmol/L Glucose 205 H (70-110) mg/dL Procalcitonin 0.40 H (0.02-0.09) ng/mL Microbiology - Last 24 Hours (Table) 03/06/22 13:45 Blood Culture - Preliminary Blood No Growth after 24 hours 03/06/22 14:00 Blood Culture - Preliminary Blood No Growth after 24 hours 03/07/22 08:24 Sputum Culture - Preliminary Sputum 03/06/22 19:50 Nasal Screen MRSA/MSSA - Preliminary Nasopharyngeal Swab
[2022-03-07] MEDS: ATORVASTATIN 20 MG TAB PO SCH (22:07)
[2022-03-07] MEDS: CLOPIDOGREL 75 MG TAB PO SCH (22:07)
[2022-03-07 23:13] LABS: Glucose,Whole Blood 293 mg/dL (70-110)
[2022-03-07] MEDS: INSULIN ASPART (NovoLOG) 100 UNIT/ML VIAL SQ SCH (23:41)
[2022-03-08] MEDS: IPRATROPIUM-ALBUTEROL 3 ML NEB INHALATION SCH ×5 (00:23→15:30)
[2022-03-08] MEDS: methylPREDNISolone SOD SUCCI 125 MG/2 ML VIAL IV SCH (05:39)
[2022-03-08 05:40] VITALS: RESP 16
[2022-03-08 07:26] LABS: Glucose,Whole Blood 239 mg/dL (70-110)
[2022-03-08] MEDS: FORMOTEROL FUMARATE 20 MCG/2 ML NEBU INHALATION SCH (08:00)
[2022-03-08] MEDS: BUDESONIDE 1 MG/2 ML NEBU INHALATION SCH (08:01)
[2022-03-08] MEDS: INSULIN ASPART (NovoLOG) 100 UNIT/ML VIAL SQ SCH ×2 (09:11→12:55)
[2022-03-08] MEDS: ENOXAPARIN 40 MG/0.4 ML SYRINGE SQ SCH (09:11)
[2022-03-08] MEDS: PANTOPRAZOLE 40 MG/10 ML VIAL IVP SCH (09:11)
[2022-03-08] MEDS: atenoloL 25 MG TAB PO SCH (09:12)
[2022-03-08] MEDS: DULoxetine HCL 60 MG CAPSULE.DR PO SCH (09:12)
[2022-03-08] MEDS: EZETIMIBE 10 MG TAB PO SCH (09:12)
[2022-03-08] MEDS: MONTELUKAST 10 MG TAB PO SCH (09:12)
[2022-03-08] MEDS: FUROSEMIDE 20 MG TAB PO SCH (09:12)
[2022-03-08 09:35] LABS: HCT 38.8 % (39.6-50.0); HGB 12.6 g/dL (13.0-17.0); MCH 30.7 pg (27.0-32.0); MCHC 32.5 g/dL (32.0-37.0); MCV 94.4 fL (80.0-97.0); Mean Platelet Volume 12.1 fL (9.5-12.2); NRBC Per 100 WBC 0 /100 WBCS (0.0-0.0); Platelet Count 129 X 10*3/uL (140-440); RBC 4.11 X 10*6/uL (4.40-5.60); RDW 13.3 % (11.5-14.5); WBC 17.08 X 10*3/uL (4.50-10.00)
[2022-03-08 09:58] LABS: African American GFR (CKD) 81.4 (60.0-200.0); Anion Gap 12.1 mmol/L (10.00-18.00); BUN/Creat Ratio 16.8 Ratio (12.00-20.00); Blood Urea Nitrogen 16.8 mg/dL (9.0-27.0); Calcium 9.1 mg/dL (8.7-10.3); Carbon Dioxide 21.9 mmol/L (20.0-27.5); Non-African American GFR(CKD) 70.3 (60.0-200.0); Potassium 4.5 mmol/L (3.5-5.5)
--- NOTE | 2022-03-08 10:30 | P.PN ---
Subjective Progress Note Date: 03/08/22 Principal diagnosis: COPD exacerbation. Physical very pleasant 82-year-old male patient with a known history of obstructive sleep apnea, coronary artery disease with previous coronary artery bypass grafting, previous PCI and stenting, hypertension, hyperlipidemia, anxiety/depression, previous chronic tobacco dependence but quit over 30 years ago. He does have COPD and follows with Dr. Abrams in our office. He has been maintained on DuoNeb inhalations, Trelegy, Singulair. He presented here to the emergency room yesterday after he woke up feeling more short of breath than his usual.. He was concerned because he did get exposed to a [facility] patient. He did have a T-max of 101. His current virus by PCR was negative. Influenza screen negative. Chest x-ray revealed chronic interstitial lung disease. Superimposed interstitial pneumonitis not excluded. Basilar atelectasis favored over pneumonia. White count 12.5. Hemoglobin 14.1. Platelet count 135. Sodium 136. Potassium 4.4. BUN 17. Creatinine 1.0. ProBNP 77. Troponin 0.029. Pro-calcitonin 0.40. He's been initiated on azithromycin, ceftriaxone, DuoNeb inhalations, Symbicort, IV Solu-Medrol. He is seen today in consultation on the regular medical floor. He is currently sitting up in bed. Awake and alert in no acute distress. He has a dry nonproductive cough. Some dyspnea on conversation. Continue O2 saturations in the mid 90s on 2 L/m per nasal cannula. He does have home oxygen that he uses as needed. Progress note dated 03/08/2022. The patient is seen today in room 531. He's feeling much better. The patient sees my partner in the office, for his COPD. The patient denies any worsening shortness of breath, chest tightness, cough, or wheezing. The patient states that he would like to be considered for possible discharge home. I told him that would be up to the hospitalist. Labs today include a white count of 17.08, hemoglobin 12.6, hematocrit 38.8, and a platelet count of 129,000. Electrolyte profile is completely normal. Glucose 233. Calcium 9.1. Pro-calcitonin level was 0.40. Chest x-ray shows changes of COPD, diffuse interstitial changes, likely related to atelectasis. Objective - Vital Signs Vital signs: Vital Signs Temp 97.8 F 03/08/22 05:00 Pulse 87 03/08/22 08:27 Resp 16 03/08/22 05:00 BP 129/68 03/08/22 05:00 Pulse Ox 98 03/08/22 07:37 FiO2 Intake & Output 03/07/22 03/08/22 03/08/22 18:59 06:59 18:59 Intake Total 776 Balance 776 Intake: Oral 776 Other: # Voids 2 2 # Bowel Movements 1 1 - Exam No acute distress, oriented 3. No audible wheezing, use of accessory muscles, or conversational dyspnea. HEENT examination is grossly unremarkable. Neck supple. Full range of motion. No adenopathy thyromegaly or neck vein distention. Cardiovascular examination reveals regular rhythm rate. S1-S2 normal. No S3 or S4. No discernible murmur noted. Heart rate 87 bpm. Heart sounds are distant. Lungs reveal scattered rhonchi and expiratory wheezes. Breath sounds are equal. Breath sounds are diminished throughout. No crackles. There is prolongation on forced maneuver. Abdomen soft bowel sounds are heard. No masses or tenderness. Extremities are intact. No cyanosis clubbing or edema. Skin is without rash or lesion. Neurologic examination is brief but nonfocal. - Labs CBC & Chem 7: 03/08/22 06:30 03/08/22 06:30 Labs: Abnormal Lab Results - Last 24 Hours (Table) 03/07/22 03/07/22 03/08/22 Range/Units 05:59 23:11 06:30 WBC 17.08 H (4.50-10.00) X 10*3/uL RBC 4.11 L (4.40-5.60) X 10*6/uL Hgb 12.6 L (13.0-17.0) g/dL Hct 38.8 L (39.6-50.0) % Plt Count 129 L (140-440) X 10*3/uL Glucose (70-110) mg/dL POC Glucose (mg/dL) 293 H (70-110) mg/dL Hemoglobin A1c (0.0-6.0) % Procalcitonin 0.40 H (0.02-0.09) ng/mL 03/08/22 03/08/22 03/08/22 Range/Units 06:30 06:30 07:23 WBC (4.50-10.00) X 10*3/uL RBC (4.40-5.60) X 10*6/uL Hgb (13.0-17.0) g/dL Hct (39.6-50.0) % Plt Count (140-440) X 10*3/uL Glucose 233 H (70-110) mg/dL POC Glucose (mg/dL) 239 H (70-110) mg/dL Hemoglobin A1c 7.4 H (0.0-6.0) % Procalcitonin (0.02-0.09) ng/mL Microbiology - Last 24 Hours (Table) 03/07/22 08:24 Gram Stain - Preliminary Sputum Sputum Culture - Preliminary 03/06/22 13:45 Blood Culture - Preliminary Blood No Growth after 24 hours 03/06/22 14:00 Blood Culture - Preliminary Blood No Growth after 24 hours Assessment and Plan Assessment: Acute exacerbation of COPD, likely complicated by tracheobronchitis. No obvious pneumonia noted. History of chronic hypoxemic respiratory failure. Prior history of heavy tobacco use, for nearly 40 years. No evidence of pulmonary embolism on CT angiogram. History of CAD, with previous coronary stenting and bypass surgery. Obstructive sleep apnea syndrome. Morbid obesity. Hiatal hernia. History of CHF. History of moderate aortic stenosis. Basilar pulmonary fibrosis and traction bronchiectasis. Peripheral artery disease. Anxiety. Plan: Plan dated 03/08/2022. The patient appears well. The patient could be considered for possible discharge on some prednisone with a burst and taper. The patient should follow up with my partner in the office if discharged. Additional recommendations and suggestions are forthcoming. Labs, x-rays, medications are reviewed. The patient was continued on just an oral antibiotic. No evidence of pneumonia on computed tomography scan. Prognosis is guarded. Time with Patient: Less than 30
[2022-03-08 11:36] VITALS: PULSE 79
[2022-03-08 11:56] LABS: Glucose,Whole Blood 248 mg/dL (70-110)
[2022-03-08 12:03] VITALS: BP 121/66; TEMP 98.7
--- NOTE | 2022-03-08 12:49 | CDI ---
Documentation Clarification Form Date: 03/08/2022 12:35:46 PM From: Katyh Rose RN CCDS Admit Date: 03/06/2022 04:53:00 PM Patient Name: Demetrio Cordero Visit Number: [id number] Discharge Date: ATTENTION: The Clinical Documentation Specialists (CDI) and [facility] Coding Staff appreciate your assistance in clarifying documentation. Please respond to the clarification below the line at the bottom and electronically sign. The CDI & [facility] Coding staff will review the response and follow-up if needed. Please note: Queries are made part of the Legal Health Record. If you have any questions, please contact the author of this message via ITS. Dr. Blanche Spence Conflicting documentation has been found in the medical record. As attending physician, please provide clarification. Acute on chronic respiratory failure , H&P, 03/06. Chronic respiratory failure, Medicine PN, 03/07. History/Risk Factors: 82-year-old male presents to the ED with shortness of breath, cough productive of yellow sputum and fever. Day prior to admission he started developing chills malaise and fever up to 101. Medical History: COPD, HELEN and CAD. 03/07, H&P. Clinical Indicators: Home oxygen 2L CXR: 03/06 Correlate for chronic interstitial lung disease. Superimposed interstitial lung disease. Superimposed interstitial pneumonitis not excluded. Basilar atelectasis favored over pneumonia. Lung examination: 03/06 Breath sounds present bilateral, inspiratory wheezes and good basilar crackles noted. VSS: 03/06 B/P 156/83; HR 107; Temp 101.0F Oral; RR 22; SpO2 93% ra Treatment: 2l nasal cannula Please clarify which diagnosis is most appropriate: [X ] Chronic respiratory failure [ ] Acute on chronic respiratory failure [ ] Other (please specify) [ ] Unable to determine (Template Last Revised: November 2020) MTDD
--- NOTE | 2022-03-08 13:05 | CDI ---
Documentation Clarification Form Date: 03/08/2022 12:50:29 PM From: Kathy Rose RN CCDS Admit Date: 03/06/2022 04:53:00 PM Patient Name: Demetrio Cordero Visit Number: [id number] Discharge Date: ATTENTION: The Clinical Documentation Specialists (CDI) and [facility] Coding Staff appreciate your assistance in clarifying documentation. Please respond to the clarification below the line at the bottom and electronically sign. The CDI & [facility] Coding staff will review the response and follow-up if needed. Please note: Queries are made part of the Legal Health Record. If you have any questions, please contact the author of this message via ITS. Dr. Blanche Spence Community acquired pneumonia is documented H&P, 03/06, but is not noted in subsequent documentation. Clarification is requested. History/Risk Factors: 82-year-old male presents to the ED with shortness of breath, cough productive of yellow sputum and fever. Day prior to admission he started developing chills malaise and fever up to 101. Medical History: COPD, HELEN and CAD. 03/07, H&P. Clinical Indicators: VSS: 03/06 B/P 156/83; HR 107; Temp 101.0F Oral; RR 22; SpO2 93% ra CXR: 03/06 Correlate for chronic interstitial lung disease. Superimposed interstitial lung disease. Superimposed interstitial pneumonitis not excluded. Basilar atelectasis favored over pneumonia. Lung examination: 03/06 Breath sounds present bilateral, inspiratory wheezes and good basilar crackles noted. Treatment: 2L nasal cannula; Rocephin IVP 1,000mg x 1; 03/06 Azithromycin 500mg IVPB x 1; 03/06 Duobneb 0.5mg-3mg Inhalation x 1 stat; 03/07 current Ceftriaxone 1gm IVPB Daily; 03/07 current Azithromycin 500mg IVPB Daily. Please clarify if the Community Acquired Pneumonia is: [ ] Pneumonia confirmed, remains under treatment [ ] Pneumonia confirmed, resolved [ ] Pneumonia ruled out [ X ] Other condition, please specify Tracheobronchitis___ [ ] Unable to determine (Template Last Revised: November 2020) MTDD
--- NOTE | 2022-03-08 17:42 | P.DS ---
Providers Date of admission: 03/06/22 16:53 Expected date of discharge: 03/08/22 Attending physician: Alexy Aguirre MD Consults: 03/06/22 17:41 Consult Physician Routine Consulting Provider: Krys Abrams Consult Reason/Comments: Pneumonia, respiraotry failure Do you want consulting provider notified?: Yes Primary care physician: Doretha Rose Hospital Course: Discharge Diagnosis: Tracheobronchitis with sepsis Acute exacerbation of COPD Pulmonary fibrosis Chronic hypoxic respiratory failure Atypical chest pain likely secondary to GERD Coronary artery disease with history of PCI Chronic diastolic congestive heart failure Intractable nausea and vomiting secondary to GERD Obesity HELEN Hospital Course: Patient is an 82-year-old male with COPD, bronchiectasis, interstitial lung disease, coronary artery disease, CABG, chornic hypoxia on 2 lpm home oxygenwho presetned to the ED with complaints of shortness of breath and fevers. In the ED he undewent an extensive evaluation. He was febrile to 101. Chest x-ray showed increased interstitial lung markings suspicious for interstitial lung disease and infiltrate in the right lower lobe. White blood cell count 14.9 and lactic acid of 2.8. He was placed in supplemental oxygen, give IV fluids, steroids breathing treatments and antibiotics and he is doing better. He was admitted for management of pneumonia. Pulm was consulted and they felt his presentation was more consistent with tracheobronchitis. He continued to improve with breathing treatments, steroids, and antibiotics. He did have an episode of chest pain due to intractable nausea and vomiting which was felt to be secondary to GERD. This improved. His EKG was unchanged and troponin was negative. His breathing was back to baseline and he was determined stable for discharge home. Follow-up: Dr. Abrams in one week, Dr. Rose, steroids fouzia, omnicef, prednisone taper--PPI while on steroids. Patient seen and examined at bedside. Feeling much better today. Feels as though his breathing is near baseline. No additional chest pain. We discussed that he likely has acid reflux exacerbated by his steroids. I also called his and all questions were answered. Vital signs reviewed and stable. General: nontoxic, no distress, appears at stated age Derm: warm, dry Head: atraumatic, normocephalic, symmetric Eyes: EOMI, no lid lag, anicteric sclera Mouth: no lip lesion, mucus membranes moist Cardiovascular: S1S2 reg, no murmur, positive posterior tibial pulse bilateral, Lungs: CTA bilateral, no rhonchi, no rales , no accessory muscle use Abdominal: soft, nontender to palpation, no guarding, no appreciable organomegaly Ext: no gross muscle atrophy, no edema, no contractures Neuro: CN II-XI grossly intact, no focal neuro deficits Psych: Alert, oriented, appropriate affect A total of 33 minutes of time were spent preparing this complex discharge summary. Patient was discharged on 03/07/22. Patient Condition at Discharge: Stable Plan - Discharge Summary New Discharge Prescriptions: New Pantoprazole [Protonix] 40 mg PO DAILY #15 tab Cefdinir [Omnicef] 300 mg PO Q12HR #6 capsule predniSONE 0 mg PO DIRECTED #40 tab Continue atenoloL [Tenormin] 25 mg PO DAILY Ezetimibe [Zetia] 10 mg PO DAILY clonazePAM [KlonoPIN] 0.5 mg PO DAILY PRN PRN Reason: Anxiety Nitroglycerin Sl Tabs [Nitrostat] 0.4 mg SUBLINGUAL Q5M PRN PRN Reason: Chest Pain Furosemide [Lasix] 20 mg PO DAILY #30 tab Clopidogrel [Plavix] 75 mg PO DAILY Rosuvastatin [Crestor] 10 mg PO DAILY Montelukast Sodium [Singulair] 10 mg PO DAILY DULoxetine HCL [Cymbalta] 60 mg PO DAILY Fluticasone/Umeclidin/Vilanter [Trelegy Ellipta 100-62.5-25] 1 puff INHALATION RT-DAILY predniSONE 5 mg PO DAILY Ipratropium-Albuterol Nebulize [Duoneb 0.5 mg-3 mg/3 ml Soln] 3 ml INHALATION RT-QID PRN PRN Reason: Shortness Of Breath Discharge Medication List Ezetimibe [Zetia] 10 mg PO DAILY 02/13/16 [History] atenoloL [Tenormin] 25 mg PO DAILY 02/13/16 [History] Nitroglycerin Sl Tabs [Nitrostat] 0.4 mg SUBLINGUAL Q5M PRN 06/22/16 [History] clonazePAM [KlonoPIN] 0.5 mg PO DAILY PRN 06/22/16 [History] Furosemide [Lasix] 20 mg PO DAILY #30 tab 06/25/16 [Rx] Clopidogrel [Plavix] 75 mg PO DAILY 10/20/19 [History] Rosuvastatin [Crestor] 10 mg PO DAILY 10/20/19 [History] Montelukast Sodium [Singulair] 10 mg PO DAILY 06/22/20 [History] DULoxetine HCL [Cymbalta] 60 mg PO DAILY 07/19/21 [History] Fluticasone/Umeclidin/Vilanter [Trelegy Ellipta 100-62.5-25] 1 puff INHALATION RT-DAILY 03/06/22 [History] Ipratropium-Albuterol Nebulize [Duoneb 0.5 mg-3 mg/3 ml Soln] 3 ml INHALATION RT-QID PRN 03/06/22 [History] predniSONE 5 mg PO DAILY 03/06/22 [History] Cefdinir [Omnicef] 300 mg PO Q12HR #6 capsule 03/08/22 [Rx] Pantoprazole [Protonix] 40 mg PO DAILY #15 tab 03/08/22 [Rx] predniSONE 0 mg PO DIRECTED #40 tab 03/08/22 [Rx] Follow up Appointment(s)/Referral(s): Krys Abrams MD [STAFF PHYSICIAN] - 03/15/22 2:15 pm Doretha Rose MD [Primary Care Provider] - 03/12/22 3:15 pm Patient Instructions/Handouts: Prednisone (By mouth), Cefdinir (By mouth), Pantoprazole (By mouth), COPD (Chronic Obstructive Pulmonary Disease) (DC) Activity/Diet/Wound Care/Special Instructions: Activity: as tolerated Diet: Heart healthy and carb consistent Special Instructions: Also follow with your primary buff wheel fabricator from [place]-- please let them know that you have 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 Discharge Disposition: HOME SELF-CARE
== END 2022-03-08 16:58 | disposition home or self-care (01) | DRG 872 ==
LOC: EC 13:44 → 5NMEDONC 16:53
PROVIDERS: ADMIT Internal Medicine; ATTEND Internal Medicine
DX: A41.9 Sepsis, unspecified organism (principal); J44.1 Chronic obstructive pulmonary disease with (acute) exacerbation; J44.0 Chronic obstructive pulmonary disease with (acute) lower respiratory infection; E87.2 Acidosis; I50.32 Chronic diastolic (congestive) heart failure; J96.11 Chronic respiratory failure with hypoxia; J40 Bronchitis, not specified as acute or chronic; K21.9 Gastro-esophageal reflux disease without esophagitis; I73.9 Peripheral vascular disease, unspecified; Z20.822 Contact with and (suspected) exposure to COVID-19; I11.0 Hypertensive heart disease with heart failure; J84.10 Pulmonary fibrosis, unspecified; I25.10 Atherosclerotic heart disease of native coronary artery without angina pectoris; F32.A Depression, unspecified; K44.9 Diaphragmatic hernia without obstruction or gangrene; I45.10 Unspecified right bundle-branch block; I35.0 Nonrheumatic aortic (valve) stenosis; E78.5 Hyperlipidemia, unspecified; F41.9 Anxiety disorder, unspecified; G47.33 Obstructive sleep apnea (adult) (pediatric); E66.01 Morbid (severe) obesity due to excess calories; Z68.35 Body mass index [BMI] 35.0-35.9, adult; Z79.02 Long term (current) use of antithrombotics/antiplatelets; Z79.899 Other long term (current) drug therapy; Z87.891 Personal history of nicotine dependence; Z95.1 Presence of aortocoronary bypass graft; Z95.5 Presence of coronary angioplasty implant and graft; Z82.3 Family history of stroke; Z82.49 Family history of ischemic heart disease and other diseases of the circulatory system
CPT/HCPCS: 36415; 71046; 74176; 80048; 80053; 81003; 83036; 83605; 83880; 84145; 84484; 85025; 85027; 85610; 85730; 87040; 87070; 87205; 87449; 87502; 87635; 93005; 94640; 94760; 96361; 96365; 96375; 99285

== ENCOUNTER 2022-06-15 16:55 | Inpatient (IN) | payer MEDICARE ==
[2022-06-15 18:34] LABS: ALT 57 U/L (4-49); African American GFR (CKD) >90 (>60 ml/min/1.73 sqM); Albumin 3.8 g/dL (3.5-5.0); Anion Gap 11 mmol/L; Blood Urea Nitrogen 18 mg/dL (9-20); Calcium 8.6 mg/dL (8.4-10.2); Carbon Dioxide 19 mmol/L (22-30); Chloride 103 mmol/L (98-107); Glucose 141 mg/dL (74-99); Non-African American GFR(CKD) 82 (>60 ml/min/1.73 sqM); Sodium 133 mmol/L (137-145); Total Bilirubin 0.4 mg/dL (0.2-1.3); Total Protein 6.2 g/dL (6.3-8.2)
[2022-06-15 18:37] LABS: Basophils % (A) 1 %; Eosinophils # (A) 0.2 k/uL (0-0.7); Eosinophils % (A) 3 %; HCT 42.2 % (39.0-53.0); HGB 14.5 gm/dL (13.0-17.5); Lymphocytes # (A) 1.1 k/uL (1.0-4.8); Lymphocytes % (A) 18 %; MCH 31.9 pg (25.0-35.0); MCHC 34.4 g/dL (31.0-37.0); MCV 92.7 fL (80.0-100.0); Mean Platelet Volume 11.1; Monocytes # (A) 0.4 k/uL (0-1.0); Monocytes % (A) 6 %; Neutrophils # (A) 4.5 k/uL (1.3-7.7); Neutrophils % (A) 70 %; Platelet Count 122 k/uL (150-450); RBC 4.56 m/uL (4.30-5.90); WBC 6.4 k/uL (3.8-10.6)
--- NOTE | 2022-06-15 18:40 | ED ---
SOB HPI - General Chief Complaint: Shortness of Breath Stated Complaint: weakness Time Seen by Provider: 06/15/22 17:05 Source: EMS Mode of arrival: EMS Limitations: no limitations - History of Present Illness Initial Comments: 82-year-old male with past medical history of COPD, sleep apnea, heart failure presents to the emergency room in with shortness of breath. States his breathing has been worse over the past week. He is supposed to wear his oxygen continuously. Reports that he only wears it 2-3 times per day for a few hours. He does admit that he wears his CPAP at night today he was outside when he had an episode of blurred vision that lasted for 10 minutes. He went into the house and put his oxygen on. States that he did not feel like he was in distress. After about 10 minutes the visual disturbance resolved. He denies any weakne sses in extremities. No facial droop or slurred speech. No history of stroke. Denies any head trauma. Patient takes Plavix. He denies any chest pain. No fevers, chills or cough. No sick contacts he does take Lasix and has been taking a daily as directed. No other alleviating, precipitating or modifying factors - Related Data Home Medications Medication Instructions Recorded Confirmed Ezetimibe [Zetia] 10 mg PO DAILY 02/13/16 06/15/22 atenoloL [Tenormin] 25 mg PO DAILY 02/13/16 06/15/22 Nitroglycerin Sl Tabs [Nitrostat] 0.4 mg SL Q5M PRN 06/22/16 06/15/22 clonazePAM [KlonoPIN] 0.5 mg PO DAILY PRN 06/22/16 06/15/22 Clopidogrel [Plavix] 75 mg PO DAILY 10/20/19 06/15/22 Rosuvastatin [Crestor] 10 mg PO DAILY 10/20/19 06/15/22 Montelukast Sodium [Singulair] 10 mg PO DAILY 06/22/20 06/15/22 DULoxetine HCL [Cymbalta] 60 mg PO DAILY 07/19/21 06/15/22 Fluticasone/Umeclidin/Vilanter 1 puff INHALATION RT-DAILY 03/06/22 06/15/22 [Trelelizandro Ellipta 100-62.5-25] Ipratropium-Albuterol Nebulize 3 ml INHALATION RT-QID PRN 03/06/22 06/15/22 [Duoneb 0.5 mg-3 mg/3 ml Soln] predniSONE 5 mg PO DAILY 03/06/22 06/15/22 Previous Rx's Medication Instructions Recorded Furosemide [Lasix] 20 mg PO DAILY #30 tab 06/25/16 Pantoprazole [Protonix] 40 mg PO DAILY #15 tab 03/08/22 Allergies Allergy/AdvReac Type Severity Reaction Status Date / Time No Known Allergies Allergy Verified 06/15/22 20:21 Review of Systems ROS Statement: Those systems with pertinent positive or pertinent negative responses have been documented in the HPI. ROS Other: All systems not noted in ROS Statement are negative. Past Medical History Past Medical History: Coronary Artery Disease (CAD), Heart Failure, COPD, Hyperlipidemia, Hypertension, Sleep Apnea/CPAP/BIPAP Additional Past Medical History / Comment(s): COPD, obesity, coronary artery disease with previous bypass surgery, cataracts, hiatal hernia, obstructive sleep apnea with CPAP therapy. 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 LIVES WITH HIS OF 55 YEARS IN A SINGLE LEVEL HOME THAT HAS 4 PORCH STEPS. NO OUTSIDE SERVICES RECIEVED. HAS A NEBULIZER. NO SERVICE IN PAST. RETIRED FROM [employer]. THEY HAVE 1 PET DOG. Smoking Status: Former smoker Past Alcohol Use History: Occasional Additional Past Alcohol Use History / Comment(s): Pt states he quit smoking almost 35 years ago. Smoked cigars Past Drug Use History: None Reported Additional Drug Use History / Comment(s): QUIT MANY YEARS AGO. quit cigars 35 years ago - Past Family History Father Family Medical History: Hyperlipidemia, Myocardial Infarction ([place]) Additional Family Medical History / Comment(s): father and brothers(mi's in their 40's and 50's). Mother Family Medical History: CVA/TIA Additional Family Medical History / Comment(s): at age 99 3/4 from a stoke General Exam Limitations: no limitations General appearance: alert, in no apparent distress Head exam: Present: atraumatic, normocephalic, normal inspection Eye exam: Present: normal appearance, PERRL, EOMI. Absent: scleral icterus, conjunctival injection, periorbital swelling ENT exam: Present: normal exam, mucous membranes moist Neck exam: Present: normal inspection. Absent: tenderness, meningismus, lymphadenopathy Respiratory exam: Absent: respiratory distress, wheezes, rales, rhonchi, stridor Cardiovascular Exam: Present: regular rate, normal rhythm, normal heart sounds. Absent: systolic murmur, diastolic murmur, rubs, gallop, clicks GI/Abdominal exam: Present: soft, normal bowel sounds. Absent: distended, tenderness, guarding, rebound, rigid Extremities exam: Present: normal inspection, full ROM, normal capillary refill. Absent: tenderness, pedal edema, joint swelling, calf tenderness Back exam: Present: normal inspection Neurological exam: Present: alert, oriented X3, CN II-XII intact Psychiatric exam: Present: normal affect, normal mood Skin exam: Present: warm, dry, intact, normal color. Absent: rash Course Vital Signs 06/15/22 06/15/22 17:01 19:01 Temperature 98.2 F Pulse Rate 70 67 Respiratory 20 20 Rate Blood Pressure 140/89 135/74 O2 Sat by Pulse 95 96 Oximetry Medical Decision Making - Medical Decision Making Upon arrival patient was placed into room 7. A thorough history and physical exam was performed. IV access was established. 12 lead EKG was performed. Laboratory studies are conducted and reviewed. Covid and influenza are negative. Chest x-ray demonstrates clinically and pulmonary congestion with small pleural effusions. He is given [address] of the brain and cervical spine demonstrates cerebral atrophy and minimal chronic small vessel ischemia. Patient will be admitted with cardiology, pulmonary and neurology consult. Spoke with Dr. Deng who was agreeable to admit the patient. - Lab Data Result diagrams: 06/15/22 17:59 06/15/22 17:59 Lab Results 09/30/22 09/30/22 09/30/22 Range/Units 17:57 17:59 17:59 WBC 6.4 (3.8-10.6) k/uL RBC 4.56 (4.30-5.90) m/uL Hgb 14.5 (13.0-17.5) gm/dL Hct 42.2 (39.0-53.0) % MCV 92.7 (80.0-100.0) fL MCH 31.9 (25.0-35.0) pg MCHC 34.4 (31.0-37.0) g/dL RDW 13.0 (11.5-15.5) % Plt Count 122 L (150-450) k/uL MPV 11.1 Neutrophils % 70 % Lymphocytes % 18 % Monocytes % 6 % Eosinophils % 3 % Basophils % 1 % Neutrophils # 4.5 (1.3-7.7) k/uL Lymphocytes # 1.1 (1.0-4.8) k/uL Monocytes # 0.4 (0-1.0) k/uL Eosinophils # 0.2 (0-0.7) k/uL Basophils # 0.0 (0-0.2) k/uL PT 10.2 (9.0-12.0) sec INR 0.9 (<1.2) APTT 22.3 (22.0-30.0) sec Sodium (137-145) mmol/L Potassium (3.5-5.1) mmol/L Chloride (98-107) mmol/L Carbon Dioxide (22-30) mmol/L Anion Gap mmol/L BUN (9-20) mg/dL Creatinine (0.66-1.25) mg/dL Est GFR (CKD-EPI)AfAm (>60 ml/min/1.73 sqM) Est GFR (CKD-EPI)NonAf (>60 ml/min/1.73 sqM) Glucose (74-99) mg/dL Plasma Lactic Acid Ronaldo 1.1 (0.7-2.0) mmol/L Calcium (8.4-10.2) mg/dL Total Bilirubin (0.2-1.3) mg/dL AST (17-59) U/L ALT (4-49) U/L Alkaline Phosphatase (38-126) U/L Troponin I (0.000-0.034) ng/mL NT-Pro-B Natriuret Pep pg/mL Total Protein (6.3-8.2) g/dL Albumin (3.5-5.0) g/dL Coronavirus (PCR) (Not Detectd) Influenza Type A RNA (Not Detectd) Influenza Type B (PCR) (Not Detectd) 06/15/22 06/15/22 06/15/22 Range/Units 17:59 17:59 17:59 WBC (3.8-10.6) k/uL RBC (4.30-5.90) m/uL Hgb (13.0-17.5) gm/dL Hct (39.0-53.0) % MCV (80.0-100.0) fL MCH (25.0-35.0) pg MCHC (31.0-37.0) g/dL RDW (11.5-15.5) % Plt Count (150-450) k/uL MPV Neutrophils % % Lymphocytes % % Monocytes % % Eosinophils % % Basophils % % Neutrophils # (1.3-7.7) k/uL Lymphocytes # (1.0-4.8) k/uL Monocytes # (0-1.0) k/uL Eosinophils # (0-0.7) k/uL Basophils # (0-0.2) k/uL PT (9.0-12.0) sec INR (<1.2) APTT (22.0-30.0) sec Sodium 133 L (137-145) mmol/L Potassium 4.6 (3.5-5.1) mmol/L Chloride 103 (98-107) mmol/L Carbon Dioxide 19 L (22-30) mmol/L Anion Gap 11 mmol/L BUN 18 (9-20) mg/dL Creatinine 0.85 (0.66-1.25) mg/dL Est GFR (CKD-EPI)AfAm >90 (>60 ml/min/1.73 sqM) Est GFR (CKD-EPI)NonAf 82 (>60 ml/min/1.73 sqM) Glucose 141 H (74-99) mg/dL Plasma Lactic Acid Ronaldo (0.7-2.0) mmol/L Calcium 8.6 (8.4-10.2) mg/dL Total Bilirubin 0.4 (0.2-1.3) mg/dL AST 43 (17-59) U/L ALT 57 H (4-49) U/L Alkaline Phosphatase 84 (38-126) U/L Troponin I <0.012 (0.000-0.034) ng/mL NT-Pro-B Natriuret Pep 110 pg/mL Total Protein 6.2 L (6.3-8.2) g/dL Albumin 3.8 (3.5-5.0) g/dL Coronavirus (PCR) (Not Detectd) Influenza Type A RNA (Not Detectd) Influenza Type B (PCR) (Not Detectd) 06/15/22 06/15/22 Range/Units 18:05 18:05 WBC (3.8-10.6) k/uL RBC (4.30-5.90) m/uL Hgb (13.0-17.5) gm/dL Hct (39.0-53.0) % MCV (80.0-100.0) fL MCH (25.0-35.0) pg MCHC (31.0-37.0) g/dL RDW (11.5-15.5) % Plt Count (150-450) k/uL MPV Neutrophils % % Lymphocytes % % Monocytes % % Eosinophils % % Basophils % % Neutrophils # (1.3-7.7) k/uL Lymphocytes # (1.0-4.8) k/uL Monocytes # (0-1.0) k/uL Eosinophils # (0-0.7) k/uL Basophils # (0-0.2) k/uL PT (9.0-12.0) sec INR (<1.2) APTT (22.0-30.0) sec Sodium (137-145) mmol/L Potassium (3.5-5.1) mmol/L Chloride (98-107) mmol/L Carbon Dioxide (22-30) mmol/L Anion Gap mmol/L BUN (9-20) mg/dL Creatinine (0.66-1.25) mg/dL Est GFR (CKD-EPI)AfAm (>60 ml/min/1.73 sqM) Est GFR (CKD-EPI)NonAf (>60 ml/min/1.73 sqM) Glucose (74-99) mg/dL Plasma Lactic Acid Ronaldo (0.7-2.0) mmol/L Calcium (8.4-10.2) mg/dL Total Bilirubin (0.2-1.3) mg/dL AST (17-59) U/L ALT (4-49) U/L Alkaline Phosphatase (38-126) U/L Troponin I (0.000-0.034) ng/mL NT-Pro-B Natriuret Pep pg/mL Total Protein (6.3-8.2) g/dL Albumin (3.5-5.0) g/dL Coronavirus (PCR) Not Detected (Not Detectd) Influenza Type A RNA Not Detected (Not Detectd) Influenza Type B (PCR) Not Detected (Not Detectd) - EKG Data EKG Comments: EKG demonstrates sinus rhythm with a rate of 67. NV interval 181. QRS 151. QTC of 457. There is a right bundle branch block. No acute ST segment elevations. Mild ST depression in aVL and V2 Disposition Clinical Impression: CHF exacerbation, Acute respiratory insufficiency, Visual disturbance Disposition: ADMITTED IP TO THIS HOSP Condition: Stable Is patient prescribed a controlled substance at d/c from ED?: No Time of Disposition: 19:32 Decision to Admit Reason: Admit from EC Decision Date: 06/15/22 Decision Time: 19:32
[2022-06-15 18:41] LABS: INR 0.9 (<1.2); Partial Thromboplastin Time 22.3 sec (22.0-30.0); Prothrombin Time 10.2 sec (9.0-12.0)
[2022-06-15 18:47] LABS: AST 43 U/L (17-59); Alkaline Phosphatase 84 U/L (38-126); Potassium 4.6 mmol/L (3.5-5.1)
--- NOTE | 2022-06-15 19:02 | CT ---
EXAMINATION TYPE: CT brain carie bruce DATE OF EXAM: 06/15/2022 COMPARISON: None HISTORY: blurred vision CT DLP: 1750.2 mGycm Automated exposure control for dose reduction was used. Images of the brain and cervical spine obtained with no contrast. There is diffuse cerebral atrophy. There is no mass effect or midline shift. No sign of intracranial hemorrhage. The calvarium is intact. There is normal aeration of the mastoid sinuses. There is mild h ypodensity in the periventricular white matter. The cervical vertebra show fairly normal alignment. There is degenerative disc space narrowing throug hout the cervical spine with spurring of the endplates. There is multilevel mild cervical facet arthr opathy. No focal bone destruction. IMPRESSION: Multilevel cervical spondylotic changes. No fracture seen. There is mild multilevel cervical spinal s tenosis due to uncovertebral spurring and endplate spur formation. Cerebral atrophy and minimal chronic small vessel ischemia. No acute intracranial abnormality.
--- NOTE | 2022-06-15 19:04 | XR ---
EXAMINATION TYPE: XR chest 2V DATE OF EXAM: 06/15/2022 COMPARISON: 03/06/2022 HISTORY: Difficulty breathing TECHNIQUE: 2 views FINDINGS: Heart is enlarged. There is mild pulmonary congestion. There are sternal wires. Bony thorax is intact. There is slight blunting of the costophrenic angles. IMPRESSION: Cardiomegaly and pulmonary congestion. Small pleural effusions. There is likely some christiana estive heart failure. Abnormalities are mostly new compared to old exam.
[2022-06-15] MEDS ORDERED: FUROSEMIDE 10 MG/ML 4 ML VIAL IV STA (19:10)
[2022-06-15] MEDS ORDERED: NALOXONE 0.4 MG/ML 1 ML VIAL IV PRN (19:32)
[2022-06-15] MEDS: ATORVASTATIN 20 MG TAB PO SCH (21:27)
[2022-06-15] MEDS: FUROSEMIDE 10 MG/ML 4 ML VIAL IV SCH (21:28)
[2022-06-16 07:38] LABS: Basophils # (A) 0.1 k/uL (0-0.2); Basophils % (A) 1 %; Eosinophils # (A) 0.3 k/uL (0-0.7); Eosinophils % (A) 4 %; HGB 14.9 gm/dL (13.0-17.5); Lymphocytes # (A) 1.6 k/uL (1.0-4.8); Lymphocytes % (A) 21 %; MCHC 32.5 g/dL (31.0-37.0); MCV 95.4 fL (80.0-100.0); Mean Platelet Volume 10.4; Monocytes # (A) 0.5 k/uL (0-1.0); Monocytes % (A) 7 %; Neutrophils # (A) 4.7 k/uL (1.3-7.7); Neutrophils % (A) 64 %; Platelet Count 129 k/uL (150-450); RBC 4.82 m/uL (4.30-5.90); RDW 12.8 % (11.5-15.5); WBC 7.3 k/uL (3.8-10.6)
[2022-06-16 08:01] LABS: Calcium 8.7 mg/dL (8.4-10.2); Potassium 4.4 mmol/L (3.5-5.1)
--- NOTE | 2022-06-16 08:30 | XR ---
EXAMINATION TYPE: XR chest 1V portable DATE OF EXAM: 06/16/2022 8:13 AM COMPARISON: Chest radiographs from TECHNIQUE: XR chest 1V portable Portable AP radiograph of the chest. CLINICAL INDICATION:Male, 82 years old with history of chf/pneumonia; FINDINGS: Lungs/Pleura: There is no evidence of pleural effusion, focal consolidation, or pneumothorax. Pulmonary vascularity: Pulmonary vascular congestion. Heart/mediastinum: Cardiomediastinal silhouette is enlarged and stable. Musculoskeletal: No acute osseous pathology. IMPRESSION: Cardiomegaly and mild pulmonary vascular congestion. Correlate with BNP for congestive heart failure.
[2022-06-16] MEDS: MONTELUKAST 10 MG TAB PO SCH (08:34)
[2022-06-16] MEDS: CLOPIDOGREL 75 MG TAB PO SCH (08:34)
[2022-06-16] MEDS: ATORVASTATIN 20 MG TAB PO SCH (08:34)
[2022-06-16] MEDS: atenoloL 25 MG TAB PO SCH (08:34)
[2022-06-16] MEDS: FUROSEMIDE 10 MG/ML 4 ML VIAL IV SCH (08:34)
[2022-06-16] MEDS: IPRATROPIUM-ALBUTEROL 3 ML NEB INHALATION PRN ×2 (08:51→11:49)
--- NOTE | 2022-06-16 10:53 | P.CNNES ---
History of Present Illness Consult date: 06/16/22 Requesting physician: Chasidy Mckeon Reason for Consult: acute visual disturbance History of Present Illness: This is an 82-year-old gentleman with history of heart failure, coronary artery disease status post CABG as well as stents, obstructive sleep apnea on CPAP, hyperlipidemia, hypertension who presented emergency department resent emerge he department has shortness of breath for the past 1 week and visual disturbance. Patient stated that yesterday he noticed that he's having double vision while feeding his fish and he felt that the double vision was on both eyes and it was [id number] and they lasted for about 10 minutes the resolved. He denies any associated focal weakness, numbness, difficulty getting words out. Denies any headache associated with it. He stated that for the past 1-2 days he's been h aving unsteady gait area and it seems that the patient has been having shortness of breath worse over the past 1 week and he supposed to be on continuous oxygen but he wears it 2-3 times at the day for a few hours. He feels back to baseline today from a neurologic perspective. He denies covering either eye yesterday to see if it is diplopia resolved on either eye. Denies history of stroke or TIA. He is on Plavix 75 mg daily and takes aspirin sporadically. Some of the workup during his hospital visit consisted of: CT of the head is reported as cerebral atrophy and minimal chronic small vessel ischemia. No acute intracranial abnormality. I personally reviewed the CT of the head and there is no acute subacute ischemia and there is known to part 1 hemorrhage. I do not feel like the patient has more atrophy than his age. CT cervical spine is reported as multilevel cervical spondylitic changes. No fracture seen. There is mild multilevel cervical spine stenosis due to uncovertebral spurring and endplate spurr formation. EKG is reported as sinus rhythm. Indetermine axis. Right bundle branch block. Jalloh virus PCR was not detected The A/B PCR was not detected Review of Systems Review of system: The 12 point system was reviewed and apparent positive and negative per HPI. Past Medical History Past Medical History: Coronary Artery Disease (CAD), Heart Failure, COPD, Hyperlipidemia, Hypertension, Sleep Apnea/CPAP/BIPAP Additional Past Medical History / Comment(s): COPD, obesity, coronary artery disease with previous bypass surgery, cataracts, hiatal hernia, obstructive sleep apnea with CPAP therapy. 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 LIVES WITH HIS OF 55 YEARS IN A SINGLE LEVEL HOME THAT HAS 4 PORCH STEPS. NO OUTSIDE SERVICES RECIEVED. HAS A NEBULIZER. NO SERVICE IN PAST. RETIRED FROM [email or web address]. THEY HAVE 1 PET DOG. Smoking Status: Former smoker Past Alcohol Use History: Occasional Additional Past Alcohol Use History / Comment(s): Pt states he quit smoking almost 35 years ago. Smoked cigars Past Drug Use History: None Reported Additional Drug Use History / Comment(s): QUIT MANY YEARS AGO. quit cigars 35 years ago - Past Family History Father Family Medical History: Hyperlipidemia, Myocardial Infarction ([place]) Additional Family Medical History / Comment(s): father and brothers(mi's in their 40's and 50's). Mother Family Medical History: CVA/TIA Additional Family Medical History / Comment(s): at age 99 3/4 from a stoke Medications and Allergies Home Medications Medication Instructions Recorded Confirmed Type Ezetimibe [Zetia] 10 mg PO DAILY 02/13/16 06/15/22 History atenoloL [Tenormin] 25 mg PO DAILY 02/13/16 06/15/22 History Nitroglycerin Sl Tabs [Nitrostat] 0.4 mg SL Q5M PRN 06/22/16 06/15/22 History clonazePAM [KlonoPIN] 0.5 mg PO DAILY PRN 06/22/16 06/15/22 History Furosemide [Lasix] 20 mg PO DAILY #30 tab 06/25/16 06/15/22 Rx Clopidogrel [Plavix] 75 mg PO DAILY 10/20/19 06/15/22 History Rosuvastatin [Crestor] 10 mg PO DAILY 10/20/19 06/15/22 History Montelukast Sodium [Singulair] 10 mg PO DAILY 06/22/20 06/15/22 History DULoxetine HCL [Cymbalta] 60 mg PO DAILY 07/19/21 06/15/22 History Fluticasone/Umeclidin/Vilanter 1 puff INHALATION RT-DAILY 03/06/22 06/15/22 History [Trelegy Ellipta 100-62.5-25] Ipratropium-Albuterol Nebulize 3 ml INHALATION RT-QID PRN 03/06/22 06/15/22 History [Duoneb 0.5 mg-3 mg/3 ml Soln] predniSONE 5 mg PO DAILY 03/06/22 06/15/22 History Pantoprazole [Protonix] 40 mg PO DAILY #15 tab 03/08/22 06/15/22 Rx Allergies Allergy/AdvReac Type Severity Reaction Status Date / Time No Known Allergies Allergy Verified 06/15/22 20:21 Physical Examination - Vital Signs Vital Signs: Vital Signs Temp Pulse Pulse Resp BP BP Pulse Ox 06/16/22 10:28 72 18 06/16/22 09:01 72 06/16/22 08:51 72 06/16/22 08:28 97.2 F L 72 18 141/65 95 06/16/22 04:00 98.2 F 68 16 135/81 96 06/16/22 00:00 98.4 F 74 16 124/78 98 06/15/22 20:15 97.8 F 72 16 143/62 100 06/15/22 19:01 67 20 135/74 96 06/15/22 17:01 98.2 F 70 20 140/89 95 Intake and Output 06/15/22 06/16/22 06/16/22 22:59 06:59 14:59 Intake Total 222 300 222 Output Total 1575 600 Balance -1353 -300 222 Intake: Oral 222 300 222 Output: Urine 1575 600 Other: Voiding Method Toilet Toilet Toilet Urinal Urinal Urinal # Voids 1 2 Weight 102.058 kg 99.8 kg GENERAL: The patient is lying in bed and is not in acute distress. CHEST: The heart rate is regular rate rhythm. No murmurs to auscultation. LUNG: Clear to auscultation bilaterally no wheezing noted throughout. Not labored breathing. ABDOMEN/GI: Bowel sounds present in all 4 quadrants. No tenderness to palpation throughout. NEUROLOGICAL: Higher mental function: The patient is awake, alert, oriented to self, place and time. Patient is following commands. No aphasia and no neglect. Cranial nerves: The pupils are round, equal and reactive to light and accommo dation. Visual chaudhry are full to confrontation throughout. Extraocular movement is intact no nystagmus is noted. Facial sensation is normal to touch throughout. The facial strength is normal throughout. Hearing is moderate to severely decreased bilaterally to hand rub. Tongue is midline and moved [id number] without any difficulty. No dysarthria is noted. Shoulder shrug is normal bilaterally. Motor: Gait was attempted but having cramping in lowers but was not swaying toward onse side or other and did not require assistance ambulating. The strength is 5 over 5 throughout. Normal tone and bulk. Cerebellum: Normal finger to nose bilaterally. Sensation: Sensation is normal to touch throughout. Reflexes (right/left): 1+ throughout. Plantars are downgoing bilaterally. Results - Laboratory Findings CBC and BMP: 06/16/22 06:59 06/16/22 06:59 Abnormal Lab Findings: Abnormal Labs 06/15/22 06/15/22 06/16/22 17:59 17:59 06:59 Plt Count 122 L 129 L Sodium 133 L Chloride Carbon Dioxide 19 L Glucose 141 H ALT 57 H Total Protein 6.2 L 06/16/22 06:59 Plt Count Sodium 136 L Chloride 97 L Carbon Dioxide Glucose 124 H ALT Total Protein Assessment and Plan Assessment: Transient episode visual disturbance (had diplopia of both eyes) lasting 10 minutes: Probable TIA Acute shortness of breath History of heart failure History of coronary artery disease status post CABG and stent History of obstructive sleep apnea on CPAP but not using his home oxygen chris nously Hyperlipidemia Hypertension Plan: I ordered carotid duplex, lipid panel, TSH, hemoglobin A1c . 2-D echo was ordered by cardiology team MRI is not warranted since the patient's is back to baseline and we'll not change management director I started the patient on aspirin in addition to his home medication was Plavix 75 mg daily. Continue Lipitor 20 mg daily. Continue neuro checks On cardiac monitoring Consulted PT and OT Cardiology is consulted Pulmonary team is consulted We'll defer the rest of the medical management to primary team Started the patient on subcu heparin 5000 units every 12 hours for DVT prophylaxis The plan was discussed with the patient and his nurse Thank you for the consultation. Venkata Gomez M.D. Neuro-hospitalist Time with Patient: Greater than 30
[2022-06-16] MEDS ORDERED: clonazePAM 0.5 MG TAB PO PRN (11:21)
--- NOTE | 2022-06-16 12:11 | P.CNPUL ---
History of Present Illness Consult date: 06/16/22 Requesting physician: Maverick Deng Reason for consult: dyspnea Chief complaint: Shortness of breath cough and wheezing History of present illness: This is an 82-year-old white male with history of multiple medical problems including mild COPD, chronic nonspecific interstitial pneumonia, chronic diastolic congestive heart failure, obstructive sleep apnea syndrome, bronchiectasis,/traction bronchiectasis, patient was last seen in the office back in February, previous CT of the chest showed minimal interstitial lung disease. Patient is maintained on albuterol is also on Trelegy . And was admitted through the emergency room yesterday mostly with a few days' history/1 week history of cough, shortness of breath, but neurologically he had blurred vision lasting for about 10 minutes. His blurred vision lasted about 10 minutes, and he had no other neurological symptoms, no slurred speech, no facial droop. Denies any trauma. Patient is maintained on Plavix. CT of the head showed evidence of cerebral atrophy and minimal chronic small vessel ischemia. No acute process was noted. Chest x-ray showed evidence of possible interstitial edema or interstitial infiltrates, COVID-19 testing was negative. Patient was given Lasix, his BNP level was normal, and his chest x-ray today shows definite improvement compared to the chest x-ray he had in the ER last night. Nonetheless the patient continues to have intermittent cough wheezing shortness of breath. Describes the cough as nonproductive. He had no fever no chills no hemoptysis and no chest pain. Patient was admitted and this consult was initiated Review of Systems Constitutional: Reports fever, Denies chills Eyes: Blurred vision as noted in HPI. Ears, nose, mouth and throat: Denies headache, Denies sore throat Cardiovascular: Denies chest pain, Denies shortness of breath Respiratory: Cough wheezing shortness of breath Gastrointestinal: Denies abdominal pain, Denies diarrhea, Denies nausea, Denies vomiting Musculoskeletal: Denies myalgias Integumentary: Denies pruritus, Denies rash Neurological: Denies numbness, Denies weakness Psychiatric: Denies anxiety, Denies depression Endocrine: Denies fatigue, Denies weight change Past Medical History Past Medical History: Coronary Artery Disease (CAD), Heart Failure, COPD, Hyperlipidemia, Hypertension, Sleep Apnea/CPAP/BIPAP Additional Past Medical History / Comment(s): COPD, obesity, coronary artery disease with previous bypass surgery, cataracts, hiatal hernia, obstructive sleep apnea with CPAP therapy. 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 LIVES WITH HIS OF 55 YEARS IN A SINGLE LEVEL HOME THAT HAS 4 PORCH STEPS. NO OUTSIDE SERVICES RECIEVED. HAS A NEBULIZER. NO SERVICE IN PAST. RETIRED FROM [employer]. THEY HAVE 1 PET DOG. Smoking Status: Former smoker Past Alcohol Use History: Occasional Additional Past Alcohol Use History / Comment(s): Pt states he quit smoking almost 35 years ago. Smoked cigars Past Drug Use History: None Reported Additional Drug Use History / Comment(s): QUIT MANY YEARS AGO. quit cigars 35 years ago - Past Family History Father Family Medical History: Hyperlipidemia, Myocardial Infarction ([place]) Additional Family Medical History / Comment(s): father and brothers(mi's in their 40's and 50's). Mother Family Medical History: CVA/TIA Additional Family Medical History / Comment(s): at age 99 3/4 from a stoke Medications and Allergies Home Medications Medication Instructions Recorded Confirmed Type Ezetimibe [Zetia] 10 mg PO DAILY 02/13/16 06/15/22 History atenoloL [Tenormin] 25 mg PO DAILY 02/13/16 06/15/22 History Nitroglycerin Sl Tabs [Nitrostat] 0.4 mg SL Q5M PRN 06/22/16 06/15/22 History clonazePAM [KlonoPIN] 0.5 mg PO DAILY PRN 06/22/16 06/15/22 History Furosemide [Lasix] 20 mg PO DAILY #30 tab 06/25/16 06/15/22 Rx Clopidogrel [Plavix] 75 mg PO DAILY 10/20/19 06/15/22 History Rosuvastatin [Crestor] 10 mg PO DAILY 10/20/19 06/15/22 History Montelukast Sodium [Singulair] 10 mg PO DAILY 06/22/20 06/15/22 History DULoxetine HCL [Cymbalta] 60 mg PO DAILY 07/19/21 06/15/22 History Fluticasone/Umeclidin/Vilanter 1 puff INHALATION RT-DAILY 03/06/22 06/15/22 History [Trelegy Ellipta 100-62.5-25] Ipratropium-Albuterol Nebulize 3 ml INHALATION RT-QID PRN 03/06/22 06/15/22 History [Duoneb 0.5 mg-3 mg/3 ml Soln] predniSONE 5 mg PO DAILY 03/06/22 06/15/22 History Pantoprazole [Protonix] 40 mg PO DAILY #15 tab 03/08/22 06/15/22 Rx Allergies Allergy/AdvReac Type Severity Reaction Status Date / Time No Known Allergies Allergy Verified 06/15/22 20:21 Physical Exam Vitals: Vital Signs Temp Pulse Pulse Resp BP BP Pulse Ox 06/16/22 11:58 70 06/16/22 11:49 70 06/16/22 10:28 72 18 06/16/22 09:01 72 06/16/22 08:51 72 06/16/22 08:28 97.2 F L 72 18 141/65 95 06/16/22 04:00 98.2 F 68 16 135/81 96 06/16/22 00:00 98.4 F 74 16 124/78 98 06/15/22 20:15 97.8 F 72 16 143/62 100 06/15/22 19:01 67 20 135/74 96 06/15/22 17:01 98.2 F 70 20 140/89 95 Intake and Output 06/15/22 06/16/22 06/16/22 22:59 06:59 14:59 Intake Total 222 300 222 Output Total 1575 600 Balance -1353 -300 222 Intake: Oral 222 300 222 Output: Urine 1575 600 Other: Voiding Method Toilet Toilet Toilet Urinal Urinal Urinal # Voids 1 2 Weight 102.058 kg 99.8 kg GENERAL EXAM: Alert, very pleasant, 82-year-old white male, 4 L of oxygen pulse ox of 95%, comfortable in no apparent distress. HEAD: Normocephalic/atraumatic. EYES: Normal reaction of pupils, equal size. Conjunctiva pink, sclera white. NOSE: Clear with pink turbinates. THROAT: No erythema or exudates. NECK: No masses, no JVD, no thyroid enlargement, no adenopathy. CHEST: No chest wall deformity. Symmetrical expansion. LUNGS: Scattered rhonchi and wheezes noted bilaterally. CVS: Regular rate and rhythm, normal S1 and S2, no gallops, 2/6 systolic murmur thought the precordium. ABDOMEN: Soft, nontender. No hepatosplenomegaly, normal bowel sounds, no guarding or rigidity. EXTREMITIES: No clubbing, no edema, no cyanosis, 2+ pulses and upper and lower extremities. SKIN: No rashes CENTRAL NERVOUS SYSTEM: Alert and oriented 3, no gross focal deficits PSYCHIATRIC: Normal mood affect and normal mental status examination. Results - Laboratory Findings CBC and BMP: 06/16/22 06:59 06/16/22 06:59 PT/INR, D-dimer PT 10.2 sec (9.0-12.0) 06/15/22 17:59 INR 0.9 (<1.2) 06/15/22 17:59 Abnormal lab findings: Abnormal Labs 06/15/22 06/15/22 06/16/22 17:59 17:59 06:59 Plt Count 122 L 129 L Sodium 133 L Chloride Carbon Dioxide 19 L Glucose 141 H ALT 57 H Total Protein 6.2 L 06/16/22 06:59 Plt Count Sodium 136 L Chloride 97 L Carbon Dioxide Glucose 124 H ALT Total Protein - Diagnostic Findings Chest x-ray: image reviewed (As noted in HPI) Assessment and Plan Assessment: Impression: Acute on chronic hypoxic respiratory failure secondary to acute exacerbation of COPD and chronic nonspecific interstitial pneumonitis. 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 Physical deconditioning. Hiatal hernia. Moderate degree of aortic stenosis. Mild interstitial lung disease and traction bronchiectasis. Peripheral vessel obstructive disease Generalized anxiety disorder. Blurred vision, possible TIA, being addressed by neurology on the case. Recommendation Continue bronchodilators including DuoNeb, and Symbicort. As well as Singulair. Continue Lasix 40 mg IV push daily Continue cardiac meds. Doxycycline 100 mg by mouth twice a day. Methylprednisolone 40 mg IV push every 8 hours Continue GI and DVT prophylaxis Continue Plavix We will continue to follow.
[2022-06-16] MEDS: PANTOPRAZOLE 40 MG TABLET PO SCH (12:38)
[2022-06-16] MEDS: ASPIRIN 81 MG PO SCH (12:38)
[2022-06-16] MEDS: DOXYCYCLINE 100 MG CAP PO SCH ×2 (12:38→20:10)
[2022-06-16] MEDS: DULoxetine HCL 60 MG CAPSULE.DR PO SCH (12:38)
[2022-06-16 16:35] LABS: Chol/HDL Ratio 4.06 Ratio; LDL Cholesterol,Calculated 131.7 mg/dL (0.0-131.0)
[2022-06-16] MEDS: methylPREDNISolone SOD SUCCI 40 MG/ML 1 ML VIAL IV SCH ×2 (17:08→23:55)
--- NOTE | 2022-06-16 19:02 | US ---
EXAMINATION TYPE: US carotid duplex BILAT DATE OF EXAM: 06/16/2022 COMPARISON: NONE CLINICAL HISTORY: stroke. TECHNIQUE: Carotid duplex ultrasound examination. Indirect Doppler criteria was utilized. FINDINGS: EXAM MEASUREMENTS: RIGHT: Peak Systolic Velocity (PSV) cm/sec ----- Right CCA: 83.8 ----- Right ICA: 107 ----- Right ECA: 105 ICA/CCA ratio: 1.25 RIGHT: End Diastole cm/sec ----- Right CCA: 9.1 ----- Right ICA: 15.5 ----- Right ECA: 0.0 LEFT: Peak Systolic Velocity (PSV) cm/sec ----- Left CCA: 78.6 ----- Left ICA: 124 ----- Left ECA: 112 ICA/CCA ratio: 1.58 LEFT: End Diastole cm/sec ----- Left CCA: 7.8 ----- Left ICA: 12.3 ----- Left ECA: 0.0 VERTEBRALS (direction of flow): Right Vertebral: unable to visualize Left Vertebral: Antegrade Rhythm: Normal CUE WORKER NOTES: *technical limitations due to patient's body habitus. Mild plaque bilateral bifurc ations. No evidence of increased velocities IMPRESSION: Week and now demonstrate flow in the right vertebral artery. There is antegrade flow in the left vert ebral artery. Images and measurements suggest less than 50% stenosis in both internal carotid arteries. Criteria for Assigning % of Stenosis / Diameter reduction (Estimation based on the indirect measurements of the internal carotid artery velocities (ICA PSV). 1. Normal (no stenosis)=ICA PSV < 125 cm/s: ratio < 2.0: ICA EDV<40 cm/s. 2. Less than 50% stenosis=ICA PSV < 125 cm/s: ratio < 2.0: ICA EDV<40 cm/s. 3. 50 to 69% stenosis=ICA PSV of 125 to 230 cm/s: ration 2.0 ? 4.0: ICA EDV 40-100 cm/s. 4. Greater than 70% stenosis to near occlusion= ICA PSV > 230 cm/s: ratio > 4.0: ICA EDV > 100 cm/s. 5. Near occlusion= ICA PSV velocities may be low or undetectable: variable ratio and ICA EDV. 6. Total occlusion=unable to detect flow.
[2022-06-16 19:44] LABS: Glucose,Whole Blood 223 mg/dL (70-110)
[2022-06-16] MEDS: SYMBICORT 160-4.5 MCG INHALER INHALATION SCH (20:05)
[2022-06-16] MEDS: HEPARIN SODIUM,PORCINE/PF 5,000 UNIT/0.5 ML SYRINGE SQ SCH (20:10)
[2022-06-16] MEDS: INSULIN ASPART (NovoLOG) 100 UNIT/ML VIAL SQ SCH (20:11)
--- NOTE | 2022-06-17 00:05 | P.HPIM ---
History of Present Illness H&P Date: 06/16/22 Chief Complaint: Shortness of breath Patient is a 82-year-old male with known history of coronary disease status post CABG and cardiac catheterization with stent placement, obstructive sleep apnea on CPAP at home, COPD, hypertension, hyperlipidemia, anxiety/depression. Hist ory of smoking and chronic CHF with diastolic dysfunction presents to ER with complaints of shortness of breath past 1 week. Patient is also having cough without any sputum production. Patient was also complaining of blurred vision lasting about 10 minutes. No complaints of focal weakness. No facial droop. No dysarthria or trouble finding words. Denied any fever or chills. No neck swelling. No dysuria or hematuria. CT head and cervical spine showed multilevel cervical spondylitic changes. No fracture seen. There is mild multilevel cervical spinal stenosis due to uncovertebral spurring and endplate spur formation. Chest x-ray showed cardiomegaly and pulmonary congestion. Mild pleural effusions. There is likely some congestive heart failure. Abnormalities are mostly new compared to old exam. EKG showed sinus rhythm Laboratory pressure WBC 6.4 hemoglobin 14.5 and platelets 122 Sodium 133 potassium 4.6, bicarb is 19 BUN 89 creatinine 0.85 and blood sugar 141 A1c 6.7 LDL 131.7, proBNP 110 Coronavirus PCR negative. Procalcitonin level not elevated. TSH within normal limits. Shortness of breath secondary to acute COPD exacerbation Acute on chronic hypoxic respiratory failure secondary to COPD exacerbation Pulmonary vascular congestion without other evidence of CHF. BNP not elevated. Blurry vision lasting for about 10 minutes. Possible TIA. Unlikely acute CVA. Coronary artery disease history of CABG Obstructive sleep apnea on SymPak Mild interstitial lung disease. Moderate aortic stenosis Peripheral vascular disease DVT and GI prophylaxis Plan: Patient is being continued on IV steroids, duo nebs and Symbicort. Continue with IV Lasix daily due to pulmonary vascular congestion follow-up repeat chest x-ray. Continue with antibiotics and oxygen supplementation. Pulmonary and cardiology and neurology is on board. Continue with home medications and follow-up closely. Past Medical History Past Medical History: Coronary Artery Disease (CAD), Heart Failure, COPD, Hyperlipidemia, Hypertension, Sleep Apnea/CPAP/BIPAP Additional Past Medical History / Comment(s): COPD, obesity, coronary artery disease with previous bypass surgery, cataracts, hiatal hernia, obstructive sleep apnea with CPAP therapy. 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 LIVES WITH HIS OF 55 YEARS IN A SINGLE LEVEL HOME THAT HAS 4 PORCH STEPS. NO OUTSIDE S ERVICES RECIEVED. HAS A NEBULIZER. NO SERVICE IN PAST. RETIRED FROM [employer]. THEY HAVE 1 PET DOG. Smoking Status: Former smoker Past Alcohol Use History: Occasional Additional Past Alcohol Use History / Comment(s): Pt states he quit smoking almost 35 years ago. Smoked cigars Past Drug Use History: None Reported Additional Drug Use History / Comment(s): QUIT MANY YEARS AGO. quit cigars 35 years ago - Past Family History Father Family Medical History: Hyperlipidemia, Myocardial Infarction ([place]) Additional Family Medical History / Comment(s): father and brothers(mi's in their 40's and 50's). Mother Family Medical History: CVA/TIA Additional Family Medical History / Comment(s): at age 99 3/4 from a stoke Medications and Allergies Home Medications Medication Instructions Recorded Confirmed Type Ezetimibe [Zetia] 10 mg PO DAILY 02/13/16 06/15/22 History atenoloL [Tenormin] 25 mg PO DAILY 02/13/16 06/15/22 History Nitroglycerin Sl Tabs [Nitrostat] 0.4 mg SL Q5M PRN 06/22/16 06/15/22 History clonazePAM [KlonoPIN] 0.5 mg PO DAILY PRN 06/22/16 06/15/22 History Furosemide [Lasix] 20 mg PO DAILY #30 tab 06/25/16 06/15/22 Rx Clopidogrel [Plavix] 75 mg PO DAILY 10/20/19 06/15/22 History Rosuvastatin [Crestor] 10 mg PO DAILY 10/20/19 06/15/22 History Montelukast Sodium [Singulair] 10 mg PO DAILY 06/22/20 06/15/22 History DULoxetine HCL [Cymbalta] 60 mg PO DAILY 07/19/21 06/15/22 History Fluticasone/Umeclidin/Vilanter 1 puff INHALATION RT-DAILY 03/06/22 06/15/22 History [Trelegy Ellipta 100-62.5-25] Ipratropium-Albuterol Nebulize 3 ml INHALATION RT-QID PRN 03/06/22 06/15/22 History [Duoneb 0.5 mg-3 mg/3 ml Soln] predniSONE 5 mg PO DAILY 03/06/22 06/15/22 History Pantoprazole [Protonix] 40 mg PO DAILY #15 tab 03/08/22 06/15/22 Rx Allergies Allergy/AdvReac Type Severity Reaction Status Date / Time No Known Allergies Allergy Verified 06/15/22 20:21 Physical Exam Vitals: Vital Signs Temp Pulse Pulse Resp BP BP Pulse Ox 06/16/22 10:28 72 18 06/16/22 09:01 72 06/16/22 08:51 72 06/16/22 08:28 97.2 F L 72 18 141/65 95 06/16/22 04:00 98.2 F 68 16 135/81 96 06/16/22 00:00 98.4 F 74 16 124/78 98 06/15/22 20:15 97.8 F 72 16 143/62 100 06/15/22 19:01 67 20 135/74 96 06/15/22 17:01 98.2 F 70 20 140/89 95 Intake and Output 06/15/22 06/16/22 06/16/22 22:59 06:59 14:59 Intake Total 222 300 222 Output Total 1575 600 Balance -1353 -300 222 Intake: Oral 222 300 222 Output: Urine 1575 600 Other: Voiding Method Toilet Toilet Toilet Urinal Urinal Urinal # Voids 1 2 Weight 102.058 kg 99.8 kg Results CBC & Chem 7: 06/17/22 05:49 06/17/22 05:49 Labs: Abnormal Lab Results - Last 24 Hours (Table) 06/15/22 06/15/22 06/16/22 Range/Units 17:59 17:59 06:59 Plt Count 122 L 129 L (150-450) k/uL Sodium 133 L (137-145) mmol/L Chloride (98-107) mmol/L Carbon Dioxide 19 L (22-30) mmol/L Glucose 141 H (74-99) mg/dL ALT 57 H (4-49) U/L Total Protein 6.2 L (6.3-8.2) g/dL 06/16/22 Range/Units 06:59 Plt Count (150-450) k/uL Sodium 136 L (137-145) mmol/L Chloride 97 L (98-107) mmol/L Carbon Dioxide (22-30) mmol/L Glucose 124 H (74-99) mg/dL ALT (4-49) U/L Total Protein (6.3-8.2) g/dL Thrombosis Risk Factor Assmnt - Choose All That Apply Any of the Below Risk Factors Present?: Yes Each Factor Represents 1 point: Abnormal pulmonary function (COPD) Each Risk Factor Represents 3 Points: Age 75 years or older Thrombosis Risk Factor Assessment Total Risk Factor Score: 4 Thrombosis Risk Factor Assessment Level: Moderate Risk
[2022-06-17 05:53] LABS: Glucose,Whole Blood 247 mg/dL (70-110)
[2022-06-17] MEDS: INSULIN ASPART (NovoLOG) 100 UNIT/ML VIAL SQ SCH ×4 (06:13→20:54)
[2022-06-17 06:24] LABS: Basophils % (A) 0 %; Eosinophils # (A) 0.1 k/uL (0-0.7); Eosinophils % (A) 0 %; HCT 46.7 % (39.0-53.0); HGB 15.5 gm/dL (13.0-17.5); Lymphocytes # (A) 0.7 k/uL (1.0-4.8); Lymphocytes % (A) 7 %; MCH 31.2 pg (25.0-35.0); MCHC 33.2 g/dL (31.0-37.0); MCV 93.9 fL (80.0-100.0); Mean Platelet Volume 10.6; Monocytes # (A) 0.2 k/uL (0-1.0); Monocytes % (A) 2 %; Neutrophils # (A) 9.7 k/uL (1.3-7.7); Neutrophils % (A) 91 %; Platelet Count 153 k/uL (150-450); RBC 4.98 m/uL (4.30-5.90); RDW 12.5 % (11.5-15.5); WBC 10.7 k/uL (3.8-10.6)
[2022-06-17 06:37] LABS: Calcium 9.2 mg/dL (8.4-10.2); Potassium 4.9 mmol/L (3.5-5.1)
[2022-06-17] MEDS ORDERED: NON FORMULARY DRUG (Fluticasone/Umeclidin/Vilanter [Trelegy Ellipta 100-62.5-25] 1 EACH Bl INHALATION SCH (08:00)
[2022-06-17] MEDS: DOXYCYCLINE 100 MG CAP PO SCH ×2 (08:09→20:53)
[2022-06-17] MEDS: PANTOPRAZOLE 40 MG TABLET PO SCH (08:09)
[2022-06-17] MEDS: DULoxetine HCL 60 MG CAPSULE.DR PO SCH (08:09)
[2022-06-17] MEDS: ASPIRIN 81 MG PO SCH (08:09)
[2022-06-17] MEDS: atenoloL 25 MG TAB PO SCH (08:10)
[2022-06-17] MEDS: methylPREDNISolone SOD SUCCI 40 MG/ML 1 ML VIAL IV SCH ×2 (08:10→17:10)
[2022-06-17] MEDS: CLOPIDOGREL 75 MG TAB PO SCH (08:10)
[2022-06-17] MEDS: FUROSEMIDE 10 MG/ML 4 ML VIAL IV SCH (08:10)
[2022-06-17] MEDS: MONTELUKAST 10 MG TAB PO SCH (08:10)
[2022-06-17] MEDS: HEPARIN SODIUM,PORCINE/PF 5,000 UNIT/0.5 ML SYRINGE SQ SCH ×2 (08:10→20:53)
[2022-06-17] MEDS: ATORVASTATIN 20 MG TAB PO SCH (08:10)
[2022-06-17] MEDS: SYMBICORT 160-4.5 MCG INHALER INHALATION SCH ×2 (08:49→19:54)
[2022-06-17] MEDS: IPRATROPIUM-ALBUTEROL 3 ML NEB INHALATION PRN ×2 (08:49→11:38)
--- NOTE | 2022-06-17 09:27 | CA ---
Transthoracic Echo Report Name: Demetrio Cordero Age: 82 Gender: M : 1940 Exam Date: 06/16/2022 12:12 Exam Location: [facility] Ht (in): 68 Wt (lb): 220 Ordering Physician: Loretta Mark Attending/Referring Phys: [employer]inter Elvia Caraballo RDCS Procedure CPT: Indications: chf Cardiac Hx: Technical Quality: Very technically difficult study Contrast 1: Lumason Total Dose (mL): 5 Contrast 2: Total Dose (mL): MEASUREMENTS (Male / Female) Normal Values 2D ECHO LV Diastolic Diameter PLAX 4.4 cm 4.2 - 5.9 / 3.9 - 5.3 cm LV Systolic Diameter PLAX 3.3 cm IVS Diastolic Thickness 1.3 cm 0.6 - 1.0 / 0.6 - 0.9 cm LVPW Diastolic Thickness 1.5 cm 0.6 - 1.0 / 0.6 - 0.9 cm LV Relative Wall Thickness 0.6 RV Internal Dim ED PLAX 3.9 cm LA Systolic Diameter LX 4.4 cm 3.0 - 4.0 / 2.7 - 3.8 cm DOPPLER AV Peak Velocity 284.0 cm/s AV Peak Gradient 32.3 mmHg AV Mean Velocity 219.4 cm/s AV Mean Gradient 21.6 mmHg AV Velocity Time Integral 51.6 cm LVOT Peak Velocity 62.6 cm/s LVOT Peak Gradient 1.6 mmHg FINDINGS Left Ventricle Left ventricular ejection fraction is estimated at 50-55%. Moderately increased left ventricular wall thickness. Right Ventricle Normal right ventricular size and function. Right Atrium Normal right atrial size. Left Atrium Mildly increased left atrial diameter. Mitral Valve Mitral annular calcification. Mild mitral regurgitation. Aortic Valve Moderate aortic stenosis with a peak gradient of 35 mmHg and a mean gradient of 22 mmHg. Tricuspid Valve Structurally normal tricuspid valve. Mild tricuspid regurgitation. Pulmonic Valve Pulmonic valve not well visualized. Pericardium Normal pericardium. Aorta Normal size aortic root and proximal ascending aorta. CONCLUSIONS Concentric left ventricular hypertrophy with normal LV systolic function M mitral annular calcification with mild mitral regurgitation Moderate aortic stenosis Previewed by: Dr. Tee Foss MD (Electronically Signed) Final Date: 17 June 2022 09:26
--- NOTE | 2022-06-17 12:03 | P.PN ---
Subjective Progress Note Date: 06/17/22 The patient is seen at bedside and he denies any diplopia or visual disturbance. He denies any new neurological issues. Objective - Vital Signs Vital signs: Vital Signs Temp 98.0 F 06/17/22 08:06 Pulse 72 06/17/22 11:49 Resp 18 06/17/22 08:22 BP 159/76 06/17/22 08:06 Pulse Ox 92 L 06/17/22 08:06 FiO2 Intake & Output 06/16/22 06/17/22 06/17/22 18:59 06:59 18:59 Intake Total 639 350 480 Output Total 350 Balance 639 0 480 Weight 100.4 kg Intake: Oral 639 350 480 Output: Urine 350 Other: Voiding Method Toilet Toilet Toilet Urinal Urinal Urinal # Voids 2 - Exam GENERAL: The patient is lying in bed and is not in acute distress. NEUROLOGICAL: Higher mental function: The patient is awake, alert, oriented to self, place and time. Patient is following commands. No aphasia and no neglect. Cranial nerves: The pupils are round, equal and reactive to light and accommodation. Visual chaudhry are full to confrontation throughout. Extraocular movement is intact no nystagmus is noted. Facial sensation is normal to touch throughout. The facial strength is normal throughout. Hearing is moderate to severely decreased bilaterally to hand rub. Tongue is midline and moved [id number] without any difficulty. No dysarthria is noted. Shoulder shrug is normal bilaterally. Motor: Gait was attempted but having cramping in lowers but was not swaying toward onse side or other and did not require assistance ambulating. The strength is 5 over 5 throughout. Normal tone and bulk. Cerebellum: Normal finger to nose bilaterally. Sensation: Sensation is normal to touch throughout. Reflexes (right/left): 1+ throughout. Plantars are downgoing bilaterally. Some of the workup during his hospital visit consisted of: TSH is 1.360 Lipid panel is a triglyceride of 118, cholesterol 206, LDL is 131 and HDL of 50. Hemoglobin A1c is 6.7. CT of the head is reported as cerebral atrophy and minimal chronic small vessel ischemia. No acute intracranial abnormality. I personally reviewed the CT of the head and there is no acute subacute ischemia and there is known to part 1 hemorrhage. I do not feel like the patient has more atrophy than his age. CT cervical spine is reported as multilevel cervical spondylitic changes. No fracture seen. There is mild multilevel cervical spine stenosis due to uncovertebral spurring and endplate spurr formation. EKG is reported as sinus rhythm. Indetermine axis. Right bundle branch block. Jalloh virus PCR was not detected The A/B PCR was not detected 2-D echo was reported as concentric left ventricular hypertrophy with normal left ventricular systolic function. Mitral annular calcification with mild mitral regurgitation. Left atrium is mildly increased left atrial diameter. Carotid duplex was reported as a week and now demonstrate flow in the right vertebral artery. There is antegrade flow in the left vertebral artery. Images and measurements suggest less than 50% stenosis in both internal carotid arteries. - Labs CBC & Chem 7: 06/17/22 05:49 06/17/22 05:49 Labs: Abnormal Lab Results - Last 24 Hours (Table) 06/16/22 06/16/22 06/16/22 Range/Units 06:59 06:59 19:42 WBC (3.8-10.6) k/uL Neutrophils # (1.3-7.7) k/uL Lymphocytes # (1.0-4.8) k/uL Sodium (137-145) mmol/L Chloride (98-107) mmol/L Glucose (74-99) mg/dL POC Glucose (mg/dL) 223 H (70-110) mg/dL Hemoglobin A1c 6.7 H (0.0-6.0) % Cholesterol 206.00 H (0.00-200.00) mg/dL LDL Cholesterol, Calc 131.7 H (0.0-131.0) mg/dL 06/17/22 06/17/22 06/17/22 Range/Units 05:49 05:49 05:51 WBC 10.7 H (3.8-10.6) k/uL Neutrophils # 9.7 H (1.3-7.7) k/uL Lymphocytes # 0.7 L (1.0-4.8) k/uL Sodium 132 L (137-145) mmol/L Chloride 97 L (98-107) mmol/L Glucose 267 H (74-99) mg/dL POC Glucose (mg/dL) 247 H (70-110) mg/dL Hemoglobin A1c (0.0-6.0) % Cholesterol (0.00-200.00) mg/dL LDL Cholesterol, Calc (0.0-131.0) mg/dL Assessment and Plan Assessment: Transient episode visual disturbance (had diplopia of both eyes) lasting 10 minutes: Probable TIA Acute shortness of breath History of heart failure History of coronary artery disease status post CABG and stent History of obstructive sleep apnea on CPAP but not using his home oxygen continously Hyperlipidemia Hypertension Plan: I ordered CT angiography of the head and neck. MRI is not warranted since the patient's is back to baseline and we'll not change management manager I started the patient on aspirin in addition to his home medication was Plavix 75 mg daily. Increased home Lipitor 20 mg daily to 40mg daily. Continue neuro checks On cardiac monitoring Consulted PT and OT Cardiology is consulted Pulmonary team is consulted We'll defer the rest of the medical management to primary team Started the patient on subcu heparin 5000 units every 12 hours for DVT prophylaxis The plan was discussed with the patient. Dr. Terry will start neurology service tomorrow Checo Gomez M.D. Neuro-hospitalist Time with Patient: Less than 30
[2022-06-17 12:24] LABS: Glucose,Whole Blood 254 mg/dL (70-110)
--- NOTE | 2022-06-17 14:00 | P.CRDCN ---
History of Present Illness Consult date: 06/16/22 History of present illness: Patient has a known history of congestive heart failure, coronary artery disease status post CABG 30 years ago, previous angioplasty, sleep apnea and uses CPAP machine, COPD. Patient follows with a claims account manager down at [facility]. This patient presented to the ER with increasing shortness of breath, he wears a normal 2, he was very consistently but admits to only a few hours a day. We've been consulted to see the patient for new onset congestive heart failure. His chest x-ray showed congestive heart failure, his BNP was 110, his EKG shows sinus rhythm with a right bundle-branch block. Patient was started on IV Lasix 40 mg every 12. At home patient also reports he had dizziness and changes neuro is on to evaluate patient. CT of the brain showed chronic changes. Patient had an echocardiogram in 2019 which showed a normal LV function and mild aortic stenosis. Will obtain d-dimer, troponin, and a 2-D echocardiogram. Continue with IV Lasix. Review of Systems REVIEW OF SYSTEMS At the time of my exam: CONSTITUTIONAL: Denies fever or chills. EYES: Negative for vision changes ENT: Negative for hearing loss CARDIOVASCULAR: Denies chest pain, shortness of breath, diaphoresis, orthopnea, PND or palpitations. VASCULAR: Denies edema RESPIRATORY: Denies cough. GASTROINTESTINAL: Denies abdominal pain, diarrhea, constipation, nausea or vomiting. MUSCULOSKELETAL: Denies myalgias. NEUROLOGIC: Denies numbness, tingling, headache or weakness. ENDOCRINE: Denies fatigue, weight change, polydipsia or polyurina. GENITOURINARY: Denies burning, hematuria or urgency with micturation. HEMATOLOGIC: Denies history of anemia or bleeding. DERMATOLOGY: Denies rash or skin sores PSYCH: Negative for depression or hallucinations. Past Medical History Past Medical History: Coronary Artery Disease (CAD), Heart Failure, COPD, Hyperlipidemia, Hypertension, Sleep Apnea/CPAP/BIPAP Additional Past Medical History / Comment(s): COPD, obesity, coronary artery disease with previous bypass surgery, cataracts, hiatal hernia, obstructive sleep apnea with CPAP therapy. 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 LIVES WITH HIS OF 55 YEARS IN A SINGLE LEVEL HOME THAT HAS 4 [address]. NO OUTSIDE SERVICES RECIEVED. HAS A NEBULIZER. NO SERVICE IN PAST. RETIRED FROM [employer]. THEY HAVE 1 PET DOG. Smoking Status: Former smoker Past Alcohol Use History: Occasional Additional Past Alcohol Use History / Comment(s): Pt states he quit smoking almost 35 years ago. Smoked cigars Past Drug Use History: None Reported Additional Drug Use History / Comment(s): QUIT MANY YEARS AGO. quit cigars 35 years ago - Past Family History Father Family Medical History: Hyperlipidemia, Myocardial Infarction ([place]) Additional Family Medical History / Comment(s): father and brothers(mi's in their 40's and 50's). Mother Family Medical History: CVA/TIA Additional Family Medical History / Comment(s): at age 99 3/4 from a stoke Medications and Allergies Home Medications Medication Instructions Recorded Confirmed Type Ezetimibe [Zetia] 10 mg PO DAILY 02/13/16 06/15/22 History atenoloL [Tenormin] 25 mg PO DAILY 02/13/16 06/15/22 History Nitroglycerin Sl Tabs [Nitrostat] 0.4 mg SL Q5M PRN 06/22/16 06/15/22 History clonazePAM [KlonoPIN] 0.5 mg PO DAILY PRN 06/22/16 06/15/22 History Furosemide [Lasix] 20 mg PO DAILY #30 tab 06/25/16 06/15/22 Rx Clopidogrel [Plavix] 75 mg PO DAILY 10/20/19 06/15/22 History Rosuvastatin [Crestor] 10 mg PO DAILY 10/20/19 06/15/22 History Montelukast Sodium [Singulair] 10 mg PO DAILY 06/22/20 06/15/22 History DULoxetine HCL [Cymbalta] 60 mg PO DAILY 07/19/21 06/15/22 History Fluticasone/Umeclidin/Vilanter 1 puff INHALATION RT-DAILY 03/06/22 06/15/22 History [Trelegy Ellipta 100-62.5-25] Ipratropium-Albuterol Nebulize 3 ml INHALATION RT-QID PRN 03/06/22 06/15/22 History [Duoneb 0.5 mg-3 mg/3 ml Soln] predniSONE 5 mg PO DAILY 03/06/22 06/15/22 History Pantoprazole [Protonix] 40 mg PO DAILY #15 tab 03/08/22 06/15/22 Rx Allergies Allergy/AdvReac Type Severity Reaction Status Date / Time No Known Allergies Allergy Verified 06/15/22 20:21 Physical Exam Vitals: Vital Signs Temp Pulse Pulse Resp BP Pulse Ox 06/17/22 12:10 77 18 125/58 97 06/17/22 11:49 72 06/17/22 11:39 72 06/17/22 09:04 72 06/17/22 08:50 72 06/17/22 08:22 79 18 06/17/22 08:06 98.0 F 79 18 159/76 92 L 06/17/22 03:33 98.0 F 67 14 142/72 94 L 06/16/22 23:58 98.1 F 69 16 134/76 97 06/16/22 20:05 97.7 F 61 16 165/81 97 06/16/22 17:06 72 18 135/69 92 L 06/16/22 14:33 70 18 Intake and Output 06/16/22 06/17/22 06/17/22 22:59 06:59 14:59 Intake Total 530 480 Output Total 350 Balance 530 -350 480 Intake: Oral 530 480 Output: Urine 350 Other: Voiding Method Toilet Toilet Toilet Urinal Urinal Urinal # Voids 2 Weight 100.4 kg General: The patient is awake and alert, in no distress, and does not appear acutely ill. Skin: Skin is warm and dry and no rashes or lesions are noted. Eye: Pupils are equal, round and reactive to light, extra-ocular movements are intact; there is normal conjunctiva bilaterally. Ears, nose, mouth and throat: There are moist mucous membranes and no oral lesions. Neck: The neck is supple, there is no tenderness or JVD. Cardiovascular: There is irregular regular rate and rhythm. No murmur, rub or gallop is appreciated. Respiratory: Lungs are clear to auscultation, respirations are non-labored, breath sounds are equal. Gastrointestinal: Soft, non-distended, non-tender abdomen without masses or o rganomegaly noted. There is no rebound or guarding present. Bowel sounds are unremarkable. Back: There is no tenderness to palpation in the midline. There is no obvious deformity. Musculoskeletal: Normal ROM, no tenderness, There is no pedal edema. There is no calf tenderness or swelling. Extremities: Mild bilateral pitting edema Vascular: Femoral pulse is normal. Posterior tibial pulses are normal .Dorsalis pedis is palpable. Neurological: CN II-XII intact. There are no obvious motor or sensory deficits. Speech is normal. Psychiatric: Cooperative, appropriate mood & affect, normal judgment Results 06/17/22 05:49 06/17/22 05:49 Lipids 06/16/22 Range/Units 06:59 Triglycerides 118.00 (0.00-149.00) mg/dL Cholesterol 206.00 H (0.00-200.00) mg/dL HDL Cholesterol 50.70 (40.00-60.00) mg/dL Cholesterol/HDL Ratio 4.06 Ratio CBC 06/17/22 Range/Units 05:49 WBC 10.7 H (3.8-10.6) k/uL RBC 4.98 (4.30-5.90) m/uL Hgb 15.5 (13.0-17.5) gm/dL Hct 46.7 (39.0-53.0) % Plt Count 153 (150-450) k/uL Comprehensive Metabolic Panel 06/17/22 Range/Units 05:49 Sodium 132 L (137-145) mmol/L Potassium 4.9 (3.5-5.1) mmol/L Chloride 97 L (98-107) mmol/L Carbon Dioxide 23 (22-30) mmol/L BUN 19 (9-20) mg/dL Creatinine 0.98 (0.66-1.25) mg/dL Glucose 267 H (74-99) mg/dL Calcium 9.2 (8.4-10.2) mg/dL Current Medications Generic Name Dose Route Start Last Admin Trade Name Freq PRN Reason Stop Dose Admin Albuterol/Ipratropium 3 ml 06/15/22 20:07 06/17/22 11:38 Ipratropium-Albuterol 3 Ml Neb INHALATION 3 ml RT-QID PRN Administration Shortness Of Breath Aspirin 81 mg 06/16/22 10:45 06/17/22 08:09 Aspirin 81 Mg PO 81 mg DAILY ASA Administration Atenolol 25 mg 06/16/22 09:00 06/17/22 08:10 Atenolol 25 Mg Tab PO 25 mg DAILY ASA Administration Atorvastatin Calcium 40 mg 06/18/22 09:00 Atorvastatin 40 Mg Tab PO DAILY ASA Budesonide/Formoterol Fumarate 2 puff 06/16/22 20:00 06/17/22 08:49 Symbicort 160-4.5 Mcg Inhaler INHALATION 2 puff RT-BID ASA Administration Clonazepam 0.5 mg 06/16/22 11:21 Clonazepam 0.5 Mg Tab PO DAILY PRN Anxiety Clopidogrel Bisulfate 75 mg 06/16/22 09:00 06/17/22 08:10 Clopidogrel 75 Mg Tab PO 75 mg DAILY ASA Administration Doxycycline Monohydrate 100 mg 06/16/22 10:15 06/17/22 08:09 Doxycycline 100 Mg Cap PO 100 mg BID ASA Administration Protocol Duloxetine HCl 60 mg 06/16/22 11:30 06/17/22 08:09 Duloxetine Hcl 60 Mg Capsule.Dr PO 60 mg DAILY ASA Administration Furosemide 40 mg 06/17/22 09:00 06/17/22 08:10 Furosemide 10 Mg/Ml 4 Ml Vial IV 40 mg DAILY ASA Administration Heparin Sodium (Porcine) 5,000 unit 06/16/22 21:00 06/17/22 08:10 Heparin Sodium,Porcine/Pf 5,000 Unit/0.5 Ml Syringe SQ 5,000 unit Q12HR ASA Administration Insulin Aspart 0 unit 06/16/22 21:00 06/17/22 12:11 Insulin Aspart (Novolog) 100 Unit/Ml Vial SQ 6 unit ACHS ASA Administration Protocol Methylprednisolone Sodium Succinate 40 mg 06/16/22 16:00 06/17/22 08:10 Methylprednisolone Sod Succi 40 Mg/Ml 1 Ml Vial IV 40 mg Q8HR ASA Administration Montelukast Sodium 10 mg 06/16/22 09:00 06/17/22 08:10 Montelukast 10 Mg Tab PO 10 mg DAILY ASA Administration Naloxone HCl 0.2 mg 06/15/22 19:32 Naloxone 0.4 Mg/Ml 1 Ml Vial IV Q2M PRN Opioid Reversal Pantoprazole Sodium 40 mg 06/16/22 11:30 06/17/22 08:09 Pantoprazole 40 Mg Tablet PO 40 mg DAILY ASA Administration Intake and Output 06/16/22 06/17/22 06/17/22 22:59 06:59 14:59 Intake Total 530 480 Output Total 350 Balance 530 -350 480 Intake: Oral 530 480 Output: Urine 350 Other: Voiding Method Toilet Toilet Toilet Urinal Urinal Urinal # Voids 2 Weight 100.4 kg 06/17/22 05:49 06/17/22 05:49 Assessment and Plan Assessment: New-onset congestive heart failure, unspecified Coronary artery disease status post CABG Plan: obtain a 2-D echocardiogram continue with IV Lasix every 12 Obtain d-dimer and troponin Continue with other current cardiac medications Further recommendations based on clinical course The above impression and plan of care have been discussed and directed by the signing physician. Loretta Mark, nurse practitioner, acting as scribe for signing physician.
--- NOTE | 2022-06-17 14:03 | P.PN ---
Subjective Progress Note Date: 06/17/22 Patient seen resting comfortably in bed in no signs of acute distress. He denies increased shortness of breath or chest pain. He continues on IV Lasix, it has been decreased to daily. Echocardiogram echocardiogram showed a low normal LV function with an ejection fraction of 5055% moderate aortic stenosis and mild mitral regurgitation. Patient remains sinus rhythm on the monitor. Continue with all current cardiac medications Objective - Vital Signs Vital signs: Vital Signs Temp 98.0 F 06/17/22 08:06 Pulse 77 06/17/22 12:10 Resp 18 06/17/22 12:10 BP 125/58 06/17/22 12:10 Pulse Ox 97 06/17/22 12:10 FiO2 Intake & Output 06/16/22 06/17/22 06/17/22 18:59 06:59 18:59 Intake Total 639 350 480 Output Total 350 Balance 639 0 480 Weight 100.4 kg Intake: Oral 639 350 480 Output: Urine 350 Other: Voiding Method Toilet Toilet Toilet Urinal Urinal Urinal # Voids 2 - Exam PHYSICAL EXAM: VITAL SIGNS: Reviewed. GENERAL: Well-developed in no acute distress. HEENT: Head is normocephalic. Pupils are equal, round. Sclerae anicteric. Mucous membranes of the mouth are moist. NECK: Supple. No JVD or thyromegaly RESPIRATORY: Respirations even and unlabored. Lungs diminished to auscultation bilaterally. CARDIO: Regular rate and rhythm. S1 and S2 heard. No murmur or gallops. EXTREMITIES: Normal range of motion. No clubbing or cyanosis. Peripheral pulses intact. Negative for bilateral lower extremity edema NEURO: Orientated to person, time, mood is appropriate - Labs CBC & Chem 7: 06/17/22 05:49 06/17/22 05:49 Labs: Abnormal Lab Results - Last 24 Hours (Table) 06/16/22 06/16/22 06/16/22 Range/Units 06:59 06:59 19:42 WBC (3.8-10.6) k/uL Neutrophils # (1.3-7.7) k/uL Lymphocytes # (1.0-4.8) k/uL Sodium (137-145) mmol/L Chloride (98-107) mmol/L Glucose (74-99) mg/dL POC Glucose (mg/dL) 223 H (70-110) mg/dL Hemoglobin A1c 6.7 H (0.0-6.0) % Cholesterol 206.00 H (0.00-200.00) mg/dL LDL Cholesterol, Calc 131.7 H (0.0-131.0) mg/dL 06/17/22 06/17/22 06/17/22 Range/Units 05:49 05:49 05:51 WBC 10.7 H (3.8-10.6) k/uL Neutrophils # 9.7 H (1.3-7.7) k/uL Lymphocytes # 0.7 L (1.0-4.8) k/uL Sodium 132 L (137-145) mmol/L Chloride 97 L (98-107) mmol/L Glucose 267 H (74-99) mg/dL POC Glucose (mg/dL) 247 H (70-110) mg/dL Hemoglobin A1c (0.0-6.0) % Cholesterol (0.00-200.00) mg/dL LDL Cholesterol, Calc (0.0-131.0) mg/dL 06/17/22 Range/Units 12:04 WBC (3.8-10.6) k/uL Neutrophils # (1.3-7.7) k/uL Lymphocytes # (1.0-4.8) k/uL Sodium (137-145) mmol/L Chloride (98-107) mmol/L Glucose (74-99) mg/dL POC Glucose (mg/dL) 254 H (70-110) mg/dL Hemoglobin A1c (0.0-6.0) % Cholesterol (0.00-200.00) mg/dL LDL Cholesterol, Calc (0.0-131.0) mg/dL Assessment and Plan Assessment: New-onset congestive heart failure, unspecified Coronary artery disease status post CABG Plan: obtain a 2-D echocardiogram continue with IV Lasix Continue with other current cardiac medications Further recommendations based on clinical course The above impression and plan of care have been discussed and directed by the signing physician. Loretta Mark, nurse practitioner, acting as scribe for signing physician.
--- NOTE | 2022-06-17 14:12 | P.PN ---
Subjective Progress Note Date: 06/17/22 Principal diagnosis: Acute on chronic hypoxic respiratory failure secondary to acute executive COPD, and chronic nonspecific interstitial pneumonitis, possible chronic diastolic co ngestive heart failure This is an 82-year-old white male with history of multiple medical problems including mild COPD, chronic nonspecific interstitial pneumonia, chronic diastolic congestive heart failure, obstructive sleep apnea syndrome, bronchiectasis,/traction bronchiectasis, patient was last seen in the office back in February, previous CT of the chest showed minimal interstitial lung disease. Patient is maintained on albuterol is also on Trelegy . And was admitted through the emergency room yesterday mostly with a few days' history/1 week history of cough, shortness of breath, but neurologically he had blurred vision lasting for about 10 minutes. His blurred vision lasted about 10 minutes, and he had no other neurological symptoms, no slurred speech, no facial droop. Denies any trauma. Patient is maintained on Plavix. CT of the head showed evidence of cerebral atrophy and minimal chronic small vessel ischemia. No acute process was noted. Chest x-ray showed evidence of possible interstitial edema or interstitial infiltrates, COVID-19 testing was negative. Patient was given Lasix, his BNP level was normal, and his chest x-ray today shows definite improvement compared to the chest x-ray he had in the ER last night. Nonetheless the patient continues to have intermittent cough wheezing shortness of breath. Describes the cough as nonproductive. He had no fever no chills no hemoptysis and no chest pain. Patient was admitted and this consult was initiated Patient was reevaluated today on 06/17/22, patient seems to be doing better today, breathing easier, less cough and less wheezing less shortness of breath. Patient is actually responding to bronchodilators, antibiotics, and diuretics. He was seen by neurology and felt that he may have had a TIA/CVA. Patient has no more diplopia. Labs today including CBC and basic metabolic profile renal profile are all normal. His pro-calcitonin level is low 0.08 Objective - Vital Signs Vital signs: Vital Signs Temp 98.0 F 06/17/22 08:06 Pulse 77 06/17/22 12:10 Resp 18 06/17/22 12:10 BP 125/58 06/17/22 12:10 Pulse Ox 97 06/17/22 12:10 FiO2 Intake & Output 06/16/22 06/17/22 06/17/22 18:59 06:59 18:59 Intake Total 639 350 480 Output Total 350 Balance 639 0 480 Weight 100.4 kg Intake: Oral 639 350 480 Output: Urine 350 Other: Voiding Method Toilet Toilet Toilet Urinal Urinal Urinal # Voids 2 - Exam Physical Exam: Revealed an 82-year-old white male in no distress Head: Atraumatic, normocephalic. HEENT:[Neck is supple.] [No neck masses.] [No thyromegaly.] [No JVD.] Chest: [Clear throughout, minimal rhonchi on forced expiratory maneuver only. Cardiac Exam: [Normal S1 and S2, no S3 gallop, no murmur.] Abdomen: [Soft, nontender, no megaly, no rebound, no guarding, normal bowel sounds.] Extremities: [No clubbing, no edema, no cyanosis.] Good pulses bilaterally Neurological Exam: [No focal neurologic deficit.] Alert and oriented 3 Psychiatric: Normal mood affect and normal. - Labs CBC & Chem 7: 06/17/22 05:49 06/17/22 05:49 Labs: Abnormal Lab Results - Last 24 Hours (Table) 06/16/22 06/16/22 06/16/22 Range/Units 06:59 06:59 19:42 WBC (3.8-10.6) k/uL Neutrophils # (1.3-7.7) k/uL Lymphocytes # (1.0-4.8) k/uL Sodium (137-145) mmol/L Chloride (98-107) mmol/L Glucose (74-99) mg/dL POC Glucose (mg/dL) 223 H (70-110) mg/dL Hemoglobin A1c 6.7 H (0.0-6.0) % Cholesterol 206.00 H (0.00-200.00) mg/dL LDL Cholesterol, Calc 131.7 H (0.0-131.0) mg/dL 06/17/22 06/17/22 06/17/22 Range/Units 05:49 05:49 05:51 WBC 10.7 H (3.8-10.6) k/uL Neutrophils # 9.7 H (1.3-7.7) k/uL Lymphocytes # 0.7 L (1.0-4.8) k/uL Sodium 132 L (137-145) mmol/L Chloride 97 L (98-107) mmol/L Glucose 267 H (74-99) mg/dL POC Glucose (mg/dL) 247 H (70-110) mg/dL Hemoglobin A1c (0.0-6.0) % Cholesterol (0.00-200.00) mg/dL LDL Cholesterol, Calc (0.0-131.0) mg/dL 06/17/22 Range/Units 12:04 WBC (3.8-10.6) k/uL Neutrophils # (1.3-7.7) k/uL Lymphocytes # (1.0-4.8) k/uL Sodium (137-145) mmol/L Chloride (98-107) mmol/L Glucose (74-99) mg/dL POC Glucose (mg/dL) 254 H (70-110) mg/dL Hemoglobin A1c (0.0-6.0) % Cholesterol (0.00-200.00) mg/dL LDL Cholesterol, Calc (0.0-131.0) mg/dL Assessment and Plan Assessment: Impression: Acute on chronic hypoxic respiratory failure secondary to acute exacerbation of COPD and chronic nonspecific interstitial pneumonitis. 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 Physical deconditioning. Hiatal hernia. Moderate degree of aortic stenosis. Mild interstitial lung disease and traction bronchiectasis. Peripheral vessel obstructive disease Generalized anxiety disorder. Blurred vision, possible TIA, being addressed by neurology on the case. Recommendation Continue bronchodilators including DuoNeb, and Symbicort. As well as Singulair. Continue Lasix 40 mg IV push daily Continue cardiac meds. Doxycycline 100 mg by mouth twice a day. Methylprednisolone 40 mg IV push every 8 hours Continue GI and DVT prophylaxis Continue Plavix Possible discharge planning in the next 24 hours. We will continue to follow. Time with Patient: Less than 30
[2022-06-17 16:51] LABS: Glucose,Whole Blood 315 mg/dL (70-110)
--- NOTE | 2022-06-17 17:35 | CT ---
EXAMINATION TYPE: CT angio head neck DATE OF EXAM: 06/17/2022 COMPARISON: None HISTORY: weakness CT DLP: 912.2 mGycm Automated exposure control for dose reduction was used. CONTRAST: Performed with IV Contrast, patient injected with 65 mL of Isovue 370. Images obtained from the aortic arch to the vertex of the brain with the IV contrast. There are Three -D postprocessed images. There is normal branching pattern of the great vessels off the aortic arch. There is arterial flow in both subclavian arteries. There is arterial flow in the common internal and external carotid arterie s bilaterally. There is plaque formation at the carotid artery bifurcations and estimated less than 2 5% stenosis. There is no evidence of carotid or vertebral artery aneurysm or dissection. The left marciano tebral artery is larger than the right. There is arterial flow in both vertebral arteries. There is a rterial flow in the vertebral basilar artery system. There is arterial flow in the anterior middle and posterior cerebral arteries bilaterally. No mass ef fect. No evidence of intracranial aneurysm or neovascularity. There is normal enhancement of the veno us sinuses. No evidence of intracranial hemodynamic arterial stenosis. IMPRESSION: No significant intracranial angiographic abnormality. Mild plaque formation at the carotid artery bifurcations without evidence of hemodynamic stenosis.
[2022-06-17 19:50] LABS: Glucose,Whole Blood 287 mg/dL (70-110)
[2022-06-18] MEDS: methylPREDNISolone SOD SUCCI 40 MG/ML 1 ML VIAL IV SCH ×4 (00:29→23:45)
[2022-06-18 06:19] LABS: Glucose,Whole Blood 199 mg/dL (70-110)
[2022-06-18] MEDS: INSULIN ASPART (NovoLOG) 100 UNIT/ML VIAL SQ SCH ×4 (06:31→20:08)
[2022-06-18] MEDS: CLOPIDOGREL 75 MG TAB PO SCH (08:01)
[2022-06-18] MEDS: DOXYCYCLINE 100 MG CAP PO SCH ×2 (08:01→20:08)
[2022-06-18] MEDS: HEPARIN SODIUM,PORCINE/PF 5,000 UNIT/0.5 ML SYRINGE SQ SCH ×2 (08:01→20:07)
[2022-06-18] MEDS: ASPIRIN 81 MG PO SCH (08:01)
[2022-06-18] MEDS: PANTOPRAZOLE 40 MG TABLET PO SCH (08:01)
[2022-06-18] MEDS: FUROSEMIDE 10 MG/ML 4 ML VIAL IV SCH (08:02)
[2022-06-18] MEDS: MONTELUKAST 10 MG TAB PO SCH (08:02)
[2022-06-18] MEDS: atenoloL 25 MG TAB PO SCH (08:02)
[2022-06-18] MEDS: DULoxetine HCL 60 MG CAPSULE.DR PO SCH (08:02)
[2022-06-18] MEDS: ATORVASTATIN 40 MG TAB PO SCH (08:02)
[2022-06-18] MEDS: SYMBICORT 160-4.5 MCG INHALER INHALATION SCH ×2 (08:39→20:43)
[2022-06-18 12:00] LABS: Glucose,Whole Blood 342 mg/dL (70-110)
--- NOTE | 2022-06-18 14:09 | P.PN ---
Subjective Progress Note Date: 06/18/22 Principal diagnosis: Respiratory insufficiency. This is an 82-year-old white male with history of multiple medical problems including mild COPD, chronic nonspecific interstitial pneumonia, chronic diastolic congestive heart failure, obstructive sleep apnea syndrome, bronchiectasis,/traction bronchiectasis, patient was last seen in the office back in February, previous CT of the chest showed minimal interstitial lung disease. Patient is maintained on albuterol is also on Trelegy . And was admitted through the emergency room yesterday mostly with a few days' history/1 week his tory of cough, shortness of breath, but neurologically he had blurred vision lasting for about 10 minutes. His blurred vision lasted about 10 minutes, and he had no other neurological symptoms, no slurred speech, no facial droop. Denies any trauma. Patient is maintained on Plavix. CT of the head showed evidence of cerebral atrophy and minimal chronic small vessel ischemia. No acute process was noted. Chest x-ray showed evidence of possible interstitial edema or interstitial infiltrates, COVID-19 testing was negative. Patient was given Lasix, his BNP level was normal, and his chest x-ray today shows definite improvement compared to the chest x-ray he had in the ER last night. Nonethel ess the patient continues to have intermittent cough wheezing shortness of breath. Describes the cough as nonproductive. He had no fever no chills no hemoptysis and no chest pain. Patient was admitted and this consult was initiated Patient was reevaluated today on 06/17/22, patient seems to be doing better today, breathing easier, less cough and less wheezing less shortness of breath. Patient is actually responding to bronchodilators, antibiotics, and diuretics. He was seen by neurology and felt that he may have had a TIA/CVA. Patient has no more diplopia. Labs today including CBC and basic metabolic profile renal profile are all normal. His pro-calcitonin level is low 0.08 Progress note dated 06/18/2022. 82-year-old male seen in consultation at couple days ago by my partner. Cu rrently, the patient's resting comfortably. He is in room 382. The patient is feeling better. He's currently on 4 L. He feels like his breathing is improved. He continues on bronchodilators, antibiotics, and diuretics. Neurology apparently saw the patient and felt that the patient may have had a TIA. Glucose is 342. No other labs today. Angiography CT, was negative for any significant stenosis. Objective - Vital Signs Vital signs: Vital Signs Temp 97.7 F 06/18/22 07:58 Pulse 72 06/18/22 12:21 Resp 18 06/18/22 12:21 BP 139/79 06/18/22 12:21 Pulse Ox 98 06/18/22 12:21 FiO2 Intake & Output 06/17/22 06/18/22 06/18/22 18:59 06:59 18:59 Intake Total 1560 240 358 Balance 1560 240 358 Weight 100.3 kg Intake: Oral 1560 240 358 Other: Voiding Method Toilet Toilet Toilet Urinal Urinal Urinal # Voids 2 - Exam No acute distress, oriented 3. Sitting at the bedside, currently on 4 L. No respiratory distress or difficulty. HEENT examination is grossly unremarkable. Neck supple. Full range of motion. No adenopathy thyromegaly or neck vein distention. Cardiovascular examination reveals regular rhythm rate. S1-S2 normal. No S3 or S4. No discernible murmur noted. Heart rate 72 bpm. Lungs reveal minimal scattered rhonchi. No wheezes or crackles. Breath sounds equal bilaterally. 4 L saturation is 98%. Abdomen soft bowel sounds are heard. No masses or tenderness. Extremities are intact. No cyanosis clubbing or edema. Skin is without rash or lesion. Neurologic examination is brief but nonfocal. - Labs CBC & Chem 7: 06/17/22 05:49 06/17/22 05:49 Labs: Abnormal Lab Results - Last 24 Hours (Table) 06/17/22 06/17/22 06/17/22 Range/Units 14:20 16:39 19:49 D-Dimer 0.65 H (<0.60) mg/L FEU POC Glucose (mg/dL) 315 H 287 H (70-110) mg/dL 06/18/22 06/18/22 Range/Units 06:17 11:52 D-Dimer (<0.60) mg/L FEU POC Glucose (mg/dL) 199 H 342 H (70-110) mg/dL Assessment and Plan Assessment: Acute on chronic hypoxemic respiratory failure, secondary to an acute exacerbation of COPD, and chronic nonspecific interstitial pneumonitis. Chronic diastolic CHF. Previous history of significant tobacco use. History of CAD, with previous bypass grafting and coronary artery stenting. Obstructive sleep apnea syndrome, maintained on CPAP. Obesity. Gen. medical debility. Hiatal hernia. Moderate aortic stenosis. Mild interstitial lung disease and traction bronchiectasis. Peripheral vascular occlusive disease. Generalized anxiety disorder. Diplopia, secondary to possible TIA. Plan: Plan dated 06/18/2022. The patient continues on bronchodilators, and duo neb. The patient is also continuing on his normal cardiac medications, and doxycycline. IV corticosteroids can be switched to prednisone. Continue GI and DVT prophylaxis. The patient is currently being evaluated for possible discharge in the next 24- 48 hours. No additional recommendations are made. The patient will need follow-up with my partner in the office. Time with Patient: Less than 30
[2022-06-18] MEDS: IPRATROPIUM-ALBUTEROL 3 ML NEB INHALATION PRN (16:04)
[2022-06-18 16:54] LABS: Glucose,Whole Blood 316 mg/dL (70-110)
[2022-06-18 19:44] LABS: Glucose,Whole Blood 281 mg/dL (70-110)
--- NOTE | 2022-06-18 23:45 | P.PN ---
Subjective Progress Note Date: 06/18/22 Patient was seen for a follow-up. Patient initially seen better over Jason. Please refer to his note for details. Patient is an 82-year-old male with visual disturbance consisting of double vision (seeing 2 mailboxes) that lasted for 4-[address] Gomez felt, that patient has possible TIA. Patient states that he is doing fine. He had transient visual hallucinations only when he was at home. None since arrived to the hospital. No focal symptoms. Patient states he has a headache rating 5-6/10 involving bifrontal region, denies any nausea or vomiting. Denies any photophobia or phonophobia. Denies any history of migraines. CTA was ordered by Dr. Gomez. Patient on aspirin and Plavix. Objective - Vital Signs Vital signs: Vital Signs Temp 97.7 F 06/18/22 07:58 Pulse 72 06/18/22 16:13 Resp 18 06/18/22 14:16 BP 139/79 06/18/22 12:21 Pulse Ox 98 06/18/22 12:21 FiO2 Intake & Output 06/17/22 06/18/22 06/18/22 18:59 06:59 18:59 Intake Total 1560 240 802 Balance 1560 240 802 Weight 100.3 kg Intake: Oral 1560 240 802 Other: Voiding Method Toilet Toilet Toilet Urinal Urinal Urinal # Voids 2 - Exam Patient is an elderly male, in no distress. Patient is alert awake oriented. Speech and language functions are normal. Patient can name and repeat very well. No aphasia or dysarthria. Attention, concentration and fund of knowledge is adequate. On cranial nerve examination, pupils are equal, round and reacting to light, visual chaudhry are full on confrontation, with no neglect on double simultaneous stimulation. Extraocular muscles are intact with no nystagmus. Face is symmetric, tongue protrudes to the midline. Palatal elevation and sensation normal, hearing is moderately decreased and shoulder shrug normal, facial sensation normal. On muscle strength testing, there is no pronator drift and the strength is normal in arms and legs distally and proximally. Sensory to touch is equal with no neglect on double simultaneous stimulation. Cerebellar function showed no ataxia for [id number] testing. Tone and bulk of muscles normal. Gait deferred.. On general examination, Chest is clear on consultation. Abdomen is soft nontender. No organomegaly, bowel sounds present. Some of the workup during his hospital visit consisted of: TSH is 1.360 Lipid panel is a triglyceride of 118, cholesterol 206, LDL is 131 and HDL of 50. Hemoglobin A1c is 6.7. CT of the head is reported as cerebral atrophy and minimal chronic small vessel ischemia. No acute intracranial abnormality. I personally reviewed the CT of the head and there is no acute subacute ischemia and there is known to part 1 hemorrhage. I do not feel like the patient has more atrophy than his age. CT cervical spine is reported as multilevel cervical spondylitic changes. No fracture seen. There is mild multilevel cervical spine stenosis due to uncovertebral spurring and endplate spurr formation. EKG is reported as sinus rhythm. Indetermine axis. Right bundle branch block. Jalloh virus PCR was not detected Influenza A/B PCR was not detected 2-D echo was reported as concentric left ventricular hypertrophy with normal left ventricular systolic function. Mitral annular calcification with mild mitral regurgitation. Left atrium is mildly increased left atrial diameter. Carotid duplex was reported as a week and now demonstrate flow in the right vertebral artery. There is antegrade flow in the left vertebral artery. Images and measurements suggest less than 50% stenosis in both internal carotid binh moises. - Labs CBC & Chem 7: 06/17/22 05:49 06/17/22 05:49 Labs: Abnormal Lab Results - Last 24 Hours (Table) 06/17/22 06/18/22 06/18/22 Range/Units 19:49 06:17 11:52 POC Glucose (mg/dL) 287 H 199 H 342 H (70-110) mg/dL 06/18/22 Range/Units 16:32 POC Glucose (mg/dL) 316 H (70-110) mg/dL Assessment and Plan Assessment: Transient episode visual disturbance (had diplopia of both eyes) lasting 10 minutes: Probable TIA Acute shortness of breath History of heart failure History of coronary artery disease status post CABG and stent History of obstructive sleep apnea on CPAP but not using his home oxygen continously Hyperlipidemia Hypertension Plan: CT angiography of the head and neck revealed no significant intracranial a ngiographic abnormality. Mild plaque formation at the carotid artery bifurcations without evidence of hemodynamic stenosis. I personally reviewed CTA of head and neck. There is evidence of some stenosis at the siphon bilaterally, right more than left. No critical stenosis. Vertebral arteries re vealed dominant left vertebral artery. The right vertebral artery is very diminutive in size. 2-D echo was reported as concentric left ventricular hypertrophy with normal left ventricular systolic function. Mitral annular calcification with mild mitral regurgitation. Left atrium is mildly increased left atrial diameter. 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 Dr. Venkata Gomez had started the patient on aspirin in addition to his home med ication was Plavix 75 mg daily. Continue dual antiplatelet medication. Increased home Lipitor 20 mg daily to 40mg daily. Continue neuro checks Telemetry monitoring showing sinus rhythm. Hemoglobin A1c 6.7. Lipid panel with cholesterol 206, LDL 131, HDL 50 and triglycerides 118. Target LDL <70. Patient on Lipitor 40 mg daily. Consulted PT and OT Cardiology is consulted Pulmonary team is consulted We'll defer the rest of the medical management to primary team DVT prophylaxis: Patient on subcu heparin 5000 units every 12 hours for DVT prophylaxis No other neurological workup indicated. Neurologically clear.
[2022-06-19] MEDS ORDERED: INSULIN DETEMIR (LEVEMIR) 100 UNIT/ML SYR SQ ONE (01:19)
--- NOTE | 2022-06-19 01:22 | P.PN ---
Subjective Progress Note Date: 06/17/22 Patient is a 82-year-old male with known history of coronary disease status post CABG and cardiac catheterization with stent placement, obstructive sleep apnea on CPAP at home, COPD, hypertension, hyperlipidemia, anxiety/depression. History of smoking and chronic CHF with diastolic dysfunction presents to ER with complaints of shortness of breath past 1 week. Patient is also having cough without any sputum production. Patient was also complaining of blurred vision lasting about 10 minutes. No complaints of focal weakness. No facial droop. No dysarthria or trouble finding words. Denied any fever or chills. No neck swelling. No dysuria or hematuria. CT head and cervical spine showed multilevel cervical spondylitic changes. No fracture seen. There is mild multilevel cervical spinal stenosis due to uncovertebral spurring and endplate spur formation. Chest x-ray showed cardiomegaly and pulmonary congestion. Mild pleural effusions. There is likely some congestive heart failure. Abnormalities are mostly new compared to old exam. EKG showed sinus rhythm Laboratory pressure WBC 6.4 hemoglobin 14.5 and platelets 122 Sodium 133 potassium 4.6, bicarb is 19 BUN 89 creatinine 0.85 and blood sugar 141 A1c 6.7 LDL 131.7, proBNP 110 Coronavirus PCR negative. Procalcitonin level not elevated. TSH within normal limits. 06/17/2022 Patient is currently sitting in the recliner. No complaints of chest pain. Cough did improve and breathing status is better today patient has been afebril e. No fever no chills. No nausea vomiting abdominal pain or diarrhea. No headache or dizziness or lightheadedness. Patient is being current IV Solu- Medrol and antibiotics in the form of doxycycline. Currently on duo nebs and Symbicort. Pulmonary is on board. Current medications reviewed. Objective - Vital Signs Vital signs: Vital Signs Temp 98.0 F 06/17/22 20:30 Pulse 79 06/17/22 20:30 Resp 18 06/17/22 20:30 BP 159/76 06/17/22 20:30 Pulse Ox 92 L 06/17/22 20:30 FiO2 Intake & Output 06/17/22 06/17/22 06/18/22 06:59 18:59 06:59 Intake Total 350 1560 Output Total 350 Balance 0 1560 Weight 100.4 kg Intake: Oral 350 1560 Output: Urine 350 Other: Voiding Method Toilet Toilet Toilet Urinal Urinal Urinal # Voids 2 - Exam PHYSICAL EXAMINATION: Patient is lying in the bed comfortably, no acute distress, awake alert and oriented.. HEENT: Normocephalic. Neck is supple. Pupils reactive. Nostrils clear. Oral cavity is moist. Neck reveals no JVD, carotid bruits, or thyromegaly. CHEST EXAMINATION: Patient does have diffuse rhonchi and coarse sounds.. CARDIAC: Normal S1, S2 with no gallops. No murmurs ABDOMEN: Soft. Bowel sounds present. Nontender. No organomegaly. No abdominal bruits. Extremities: reveal no edema. No clubbing or cyanosis Neurologically awake, alert, oriented x3 with well-coordinated movements. No focal deficits noted Skin: No rash or skin lesions. Psychiatric: Coperative. Nonsuicidal, Musculoskeletal: No joint swelling or deformity. Normal range of motion. - Labs CBC & Chem 7: 06/17/22 05:49 06/17/22 05:49 Labs: Abnormal Lab Results - Last 24 Hours (Table) 06/17/22 06/17/22 06/17/22 Range/Units 05:49 05:49 05:51 WBC 10.7 H (3.8-10.6) k/uL Neutrophils # 9.7 H (1.3-7.7) k/uL Lymphocytes # 0.7 L (1.0-4.8) k/uL D-Dimer (<0.60) mg/L FEU Sodium 132 L (137-145) mmol/L Chloride 97 L (98-107) mmol/L Glucose 267 H (74-99) mg/dL POC Glucose (mg/dL) 247 H (70-110) mg/dL 06/17/22 06/17/22 06/17/22 Range/Units 12:04 14:20 16:39 WBC (3.8-10.6) k/uL Neutrophils # (1.3-7.7) k/uL Lymphocytes # (1.0-4.8) k/uL D-Dimer 0.65 H (<0.60) mg/L FEU Sodium (137-145) mmol/L Chloride (98-107) mmol/L Glucose (74-99) mg/dL POC Glucose (mg/dL) 254 H 315 H (70-110) mg/dL 06/17/22 Range/Units 19:49 WBC (3.8-10.6) k/uL Neutrophils # (1.3-7.7) k/uL Lymphocytes # (1.0-4.8) k/uL D-Dimer (<0.60) mg/L FEU Sodium (137-145) mmol/L Chloride (98-107) mmol/L Glucose (74-99) mg/dL POC Glucose (mg/dL) 287 H (70-110) mg/dL Assessment and Plan Assessment: Shortness of breath secondary to acute COPD exacerbation Acute on chronic hypoxic respiratory failure secondary to COPD exacerbation Pulmonary vascular congestion without other evidence of CHF. BNP not elevated. Blurry vision lasting for about 10 minutes. Possible TIA. Unlikely acute CVA. Coronary artery disease history of CABG Obstructive sleep apnea on SymPak Mild interstitial lung disease. Moderate aortic stenosis Peripheral vascular disease DVT and GI prophylaxis Plan: Patient is being continued on IV steroids, duo nebs and Symbicort. Continue with IV Lasix daily due to pulmonary vascular congestion follow-up repeat chest x-ray. Continue with antibiotics and oxygen supplementation. Pulmonary and cardiology and neurology is on board. Continue with home medications and follow-up closely. Time with Patient: Greater than 30
--- NOTE | 2022-06-19 01:24 | P.PN ---
Subjective Progress Note Date: 06/18/22 Patient is a 82-year-old male with known history of coronary disease status post CABG and cardiac catheterization with stent placement, obstructive sleep apnea on CPAP at home, COPD, hypertension, hyperlipidemia, anxiety/depression. History of smoking and chronic CHF with diastolic dysfunction presents to ER with complaints of shortness of breath past 1 week. Patient is also having cough without any sputum production. Patient was also complaining of blurred vision lasting about 10 minutes. No complaints of focal weakness. No facial droop. No dysarthria or trouble finding words. Denied any fever or chills. No neck swelling. No dysuria or hematuria. CT head and cervical spine showed multilevel cervical spondylitic changes. No fracture seen. There is mild multilevel cervical spinal stenosis due to uncovertebral spurring and endplate spur formation. Chest x-ray showed cardiomegaly and pulmonary congestion. Mild pleural effusions. There is likely some congestive heart failure. Abnormalities are mostly new compared to old exam. EKG showed sinus rhythm Laboratory pressure WBC 6.4 hemoglobin 14.5 and platelets 122 Sodium 133 potassium 4.6, bicarb is 19 BUN 89 creatinine 0.85 and blood sugar 141 A1c 6.7 LDL 131.7, proBNP 110 Coronavirus PCR negative. Procalcitonin level not elevated. TSH within normal limits. 06/17/2022 Patient is currently sitting in the recliner. No complaints of chest pain. Cough did improve and breathing status is better today patient has been afebril e. No fever no chills. No nausea vomiting abdominal pain or diarrhea. No headache or dizziness or lightheadedness. Patient is being current IV Solu- Medrol and antibiotics in the form of doxycycline. Currently on duo nebs and Symbicort. Pulmonary is on board. 06/18/2022 Patient is currently sitting on the side of bed. Awake alert and oriented x3. Breathing feels better. Still having bilateral diffuse rhonchi and coarse sounds and wheezing noted on exam. Patient is being continued on IV Solu- Medrol. Duo nebs and Symbicort. Also on antibiotics at home doxycycline. Patient blood sugars elevated likely due to steroids and is being continued insulin sliding scale. Patient was seen by neurology due to transient diplopia. Neurologic work-up including CT angio of the head and neck and 2D echocardiogram was done. Patient will be continued on dual antiplatelet agents and neurologically cleared at this time. Patient has been afebrile. No nausea vomiting abdominal pain or diarrhea. No dysuria or hematuria. No fever no chills. Anticipate discharge in next 24 hours more clinical improvement Current medications reviewed. Objective - Vital Signs Vital signs: Vital Signs Temp 98.2 F 06/18/22 19:54 Pulse 76 06/18/22 19:54 Resp 20 06/18/22 19:54 BP 160/83 06/18/22 19:54 Pulse Ox 98 06/18/22 19:54 FiO2 Intake & Output 06/18/22 06/18/22 06/19/22 06:59 18:59 06:59 Intake Total 240 1486 Balance 240 1486 Weight 100.3 kg Intake: Oral 240 1486 Other: Voiding Method Toilet Toilet Urinal Urinal # Voids 2 - Exam PHYSICAL EXAMINATION: Patient is lying in the bed comfortably, no acute distress, awake alert and oriented.. HEENT: Normocephalic. Neck is supple. Pupils reactive. Nostrils clear. Oral cavity is moist. Neck reveals no JVD, carotid bruits, or thyromegaly. CHEST EXAMINATION: Patient does have diffuse rhonchi and coarse sounds.. CARDIAC: Normal S1, S2 with no gallops. No murmurs ABDOMEN: Soft. Bowel sounds present. Nontender. No organomegaly. No abdominal bruits. Extremities: reveal no edema. No clubbing or cyanosis Neurologically awake, alert, oriented x3 with well-coordinated movements. No focal deficits noted Skin: No rash or skin lesions. Psychiatric: Coperative. Nonsuicidal, Musculoskeletal: No joint swelling or deformity. Normal range of motion. - Labs CBC & Chem 7: 06/17/22 05:49 06/17/22 05:49 Labs: Abnormal Lab Results - Last 24 Hours (Table) 06/18/22 06/18/22 06/18/22 Range/Units 06:17 11:52 16:32 POC Glucose (mg/dL) 199 H 342 H 316 H (70-110) mg/dL 06/18/22 Range/Units 19:42 POC Glucose (mg/dL) 281 H (70-110) mg/dL Assessment and Plan Assessment: Shortness of breath secondary to acute COPD exacerbation Acute on chronic hypoxic respiratory failure secondary to COPD exacerbation Pulmonary vascular congestion without other evidence of CHF. BNP not elevated. Blurry vision lasting for about 10 minutes. Possible TIA. Unlikely acute CVA. Coronary artery disease history of CABG Obstructive sleep apnea on SymPak Mild interstitial lung disease. Moderate aortic stenosis Peripheral vascular disease DVT and GI prophylaxis Plan: Patient is being continued on IV steroids, duo nebs and Symbicort. Continued with IV Lasix daily due to pulmonary vascular congestion follow-up repeat chest x-ray. chnaged to PO Continue with antibiotics and oxygen supplementation. Pulmonary and cardio logy and neurology is on board. Continue with home medications and follow-up closely. Time with Patient: Greater than 30
[2022-06-19 03:32] LABS: Glucose,Whole Blood 217 mg/dL (70-110)
[2022-06-19 05:56] LABS: Glucose,Whole Blood 204 mg/dL (70-110)
[2022-06-19] MEDS: INSULIN ASPART (NovoLOG) 100 UNIT/ML VIAL SQ SCH ×2 (06:18→12:27)
--- NOTE | 2022-06-19 06:43 | PN ---
PROGRESS NOTE SUBJECTIVE: This gentleman is admitted now with increasing shortness of breath. He has exacerbation of COPD and sees Dr. Abrams. He was on IV Lasix, recommending that we switch him from IV to oral Lasix. His clinical picture does not suggest heart failure. His LV function is normal and BNP is also normal. I am recommending no intervention from a cardiac standpoint. Continue same medications and we will see him as needed. OBJECTIVE: VITALS: Stable. HEART: S1-S2 heard normally. LUNGS: Clear with improved air entry. ABDOMEN: Exam unchanged. LOWER EXTREMITIES: Exam unchanged. MMODL / IJN: [id number] /
[2022-06-19] MEDS: SYMBICORT 160-4.5 MCG INHALER INHALATION SCH (08:23)
[2022-06-19] MEDS ORDERED: FUROSEMIDE 40 MG TAB PO SCH (09:00)
[2022-06-19] MEDS: methylPREDNISolone SOD SUCCI 40 MG/ML 1 ML VIAL IV SCH (09:19)
[2022-06-19] MEDS: MONTELUKAST 10 MG TAB PO SCH (09:19)
[2022-06-19] MEDS: DULoxetine HCL 60 MG CAPSULE.DR PO SCH (09:19)
[2022-06-19] MEDS: ATORVASTATIN 40 MG TAB PO SCH (09:19)
[2022-06-19] MEDS: atenoloL 25 MG TAB PO SCH (09:19)
[2022-06-19] MEDS: DOXYCYCLINE 100 MG CAP PO SCH (09:20)
[2022-06-19] MEDS: CLOPIDOGREL 75 MG TAB PO SCH (09:20)
[2022-06-19] MEDS: ASPIRIN 81 MG PO SCH (09:20)
[2022-06-19] MEDS: PANTOPRAZOLE 40 MG TABLET PO SCH (09:20)
[2022-06-19] MEDS: HEPARIN SODIUM,PORCINE/PF 5,000 UNIT/0.5 ML SYRINGE SQ SCH (09:30)
[2022-06-19 09:33] LABS: Calcium 9.1 mg/dL (8.4-10.2); Potassium 4.8 mmol/L (3.5-5.1)
[2022-06-19 09:58] LABS: Basophils % (A) 0 %; Eosinophils % (A) 0 %; HCT 47.4 % (39.0-53.0); HGB 15.8 gm/dL (13.0-17.5); Lymphocytes % (A) 4 %; MCH 31.9 pg (25.0-35.0); MCHC 33.3 g/dL (31.0-37.0); MCV 95.7 fL (80.0-100.0); Mean Platelet Volume 10.9; Monocytes # (A) 1.7 k/uL (0-1.0); Monocytes % (A) 7 %; Neutrophils # (A) 20.6 k/uL (1.3-7.7); Neutrophils % (A) 87 %; Platelet Count 207 k/uL (150-450); RBC 4.95 m/uL (4.30-5.90); RDW 12.6 % (11.5-15.5); WBC 23.7 k/uL (3.8-10.6)
[2022-06-19 10:33] VITALS: BMI 33.6
[2022-06-19 12:02] LABS: Glucose,Whole Blood 195 mg/dL (70-110)
[2022-06-19 12:34] VITALS: BP 132/69; PULSE 72; RESP 18; TEMP 98.7
--- NOTE | 2022-06-19 13:40 | P.DS ---
Providers Date of admission: 06/15/22 19:32 Expected date of discharge: 06/19/22 Attending physician: Maverick Deng Consults: 06/15/22 19:32 Consult Physician Urgent Consulting Provider: [facility] Consult Reason/Comments: chf exacerbation Do you want consulting provider notified?: Yes Consult Physician Urgent Consulting Provider: Krys Abrams Consult Reason/Comments: acute resp insuff, aechf Do you want consulting provider notified?: Yes 06/15/22 20:06 Consult Physician Urgent Consulting Provider: Venkata Gomez Consult Reason/Comments: acute visual disturbance Do you want consulting provider notified?: Yes Primary care physician: Doretha Milton [facility] Course: Discharge diagnosis; Shortness of breath secondary to acute COPD exacerbation Acute on chronic hypoxic respiratory failure secondary to COPD exacerbation Pulmonary vascular congestion without other evidence of CHF. BNP not elevated. Blurry vision lasting for about 10 minutes. Possible TIA. Unlikely acute CVA. Coronary artery disease history of CABG Obstructive sleep apnea on SymPak Mild interstitial lung disease. Moderate aortic stenosis Peripheral vascular disease Hospital course: Patient is a 82-year-old male with known history of coronary disease status post CABG and cardiac catheterization with stent placement, obstructive sleep apnea on CPAP at home, COPD, hypertension, hyperlipidemia, anxiety/depression. History of smoking and chronic CHF with diastolic dysfunction presents to ER with complaints of shortness of breath past 1 week. Patient is also having cough without any sputum production. Patient was also complaining of blurred vision lasting about 10 minutes. No complaints of focal weakness. No facial droop. No dysarthria or trouble finding words. Denied any fever or chills. No neck swelling. No dysuria or hematuria. CT head and cervical spine showed multilevel cervical spondylitic changes. No fracture seen. There is mild multilevel cervical spinal stenosis due to uncovertebral spurring and endplate spur formation. Chest x-ray showed cardiomegaly and pulmonary congestion. Mild pleural effusions. There is likely some congestive heart failure. Abnormalities are mostly new compared to old exam. EKG showed sinus rhythm Laboratory pressure WBC 6.4 hemoglobin 14.5 and platelets 122 Sodium 133 potassium 4.6, bicarb is 19 BUN 89 creatinine 0.85 and blood sugar 141 A1c 6.7 LDL 131.7, proBNP 110 Coronavirus PCR negative. Procalcitonin level not elevated. TSH within normal limits. 06/17/2022 Patient is currently sitting in the recliner. No complaints of chest pain. Cough did improve and breathing status is better today patient has been afeb rile. No fever no chills. No nausea vomiting abdominal pain or diarrhea. No headache or dizziness or lightheadedness. Patient is being current IV Solu- Medrol and antibiotics in the form of doxycycline. Currently on duo nebs and Symbicort. Pulmonary is on board. 06/18/2022 Patient is currently sitting on the side of bed. Awake alert and oriented x3. Breathing feels better. Still having bilateral diffuse rhonchi and coarse sounds and wheezing noted on exam. Patient is being continued on IV Solu- Medrol. Duo nebs and Symbicort. Also on antibiotics at home doxycycline. Patient blood sugars elevated likely due to steroids and is being continued insulin sliding scale. Patient was seen by neurology due to transient diplopia. Neurologic work-up including CT angio of the head and neck and 2D echocardiogram was done. Patient will be continued on dual antiplatelet agents and neurologically cleared at this time. Patient has been afebrile. No nausea vomiting abdominal pain or diarrhea. No dysuria or hematuria. No fever no chills. Anticipate discharge in next 24 hours more clinical improvement 06/19/22. Patient seen and examined. Patient seen by pulmonology, they cleared the patient for discharge. Being discharged on oral doxycycline for 3 more days. Patient given prescription for prednisone 40 mg daily for 5 more days followed by home dose of prednisone. Continue home breathing treatment. Outpatient follow-up with PCP, pulmonology PHYSICAL EXAMINATION: GENERAL: The patient is alert and oriented x3, not in any acute distress. Well developed, well nourished. HEENT: Pupils are round and equally reacting to light. EOMI. No scleral icterus. No conjunctival pallor. Normocephalic, atraumatic. No pharyngeal erythema. No thyromegaly. CARDIOVASCULAR: S1 and S2 present. No murmurs, rubs, or gallops. PULMONARY: Chest is clear to auscultation, no wheezing or crackles. ABDOMEN: Soft, nontender, nondistended, normoactive bowel sounds. No palpable organomegaly. MUSCULOSKELETAL: No joint swelling or deformity. EXTREMITIES: No cyanosis, clubbing, or pedal edema. NEUROLOGICAL: Gross neurological examination did not reveal any focal deficits. SKIN: No rashes. Patient Condition at Discharge: Stable Plan - Discharge Summary Discharge Rx Participant: No New Discharge Prescriptions: New Aspirin 81 mg PO DAILY #30 tab Furosemide [Lasix] 40 mg PO DAILY #30 tab Doxycycline [Vibramycin] 100 mg PO BID 3 Days #6 cap Atorvastatin [Lipitor] 40 mg PO DAILY #30 tab predniSONE 40 mg PO DAILY #20 tab Continue atenoloL [Tenormin] 25 mg PO DAILY Ezetimibe [Zetia] 10 mg PO DAILY clonazePAM [KlonoPIN] 0.5 mg PO DAILY PRN PRN Reason: Anxiety Nitroglycerin Sl Tabs [Nitrostat] 0.4 mg SL Q5M PRN PRN Reason: Chest Pain Clopidogrel [Plavix] 75 mg PO DAILY Montelukast Sodium [Singulair] 10 mg PO DAILY DULoxetine HCL [Cymbalta] 60 mg PO DAILY Fluticasone/Umeclidin/Vilanter [Trelegy Ellipta 100-62.5-25] 1 puff INHALATION RT-DAILY Pantoprazole [Protonix] 40 mg PO DAILY #15 tab predniSONE 5 mg PO DAILY Ipratropium-Albuterol Nebulize [Duoneb 0.5 mg-3 mg/3 ml Soln] 3 ml INHALATION RT-QID PRN PRN Reason: Shortness Of Breath Discontinued Furosemide [Lasix] 20 mg PO DAILY #30 tab Rosuvastatin [Crestor] 10 mg PO DAILY Discharge Medication List Ezetimibe [Zetia] 10 mg PO DAILY 02/13/16 [History] atenoloL [Tenormin] 25 mg PO DAILY 02/13/16 [History] Nitroglycerin Sl Tabs [Nitrostat] 0.4 mg SL Q5M PRN 06/22/16 [History] clonazePAM [KlonoPIN] 0.5 mg PO DAILY PRN 06/22/16 [History] Clopidogrel [Plavix] 75 mg PO DAILY 10/20/19 [History] Montelukast Sodium [Singulair] 10 mg PO DAILY 06/22/20 [History] DULoxetine HCL [Cymbalta] 60 mg PO DAILY 07/19/21 [History] Fluticasone/Umeclidin/Vilanter [Trelegy Ellipta 100-62.5-25] 1 puff INHALATION RT-DAILY 03/06/22 [History] Ipratropium-Albuterol Nebulize [Duoneb 0.5 mg-3 mg/3 ml Soln] 3 ml INHALATION RT-QID PRN 03/06/22 [History] predniSONE 5 mg PO DAILY 03/06/22 [History] Pantoprazole [Protonix] 40 mg PO DAILY #15 tab 03/08/22 [Rx] Aspirin 81 mg PO DAILY #30 tab 06/19/22 [Rx] Atorvastatin [Lipitor] 40 mg PO DAILY #30 tab 06/19/22 [Rx] Doxycycline [Vibramycin] 100 mg PO BID 3 Days #6 cap 06/19/22 [Rx] Furosemide [Lasix] 40 mg PO DAILY #30 tab 06/19/22 [Rx] predniSONE 40 mg PO DAILY #20 tab 06/19/22 [Rx] Follow up Appointment(s)/Referral(s): Doretha Rose MD [Primary Care Provider] - 1-2 days Venkata Gomez MD [STAFF PHYSICIAN] - 1 Week Discharge Disposition: HOME SELF-CARE
--- NOTE | 2022-06-19 15:20 | P.PN ---
Subjective Progress Note Date: 06/19/22 This is an 82-year-old white male with history of multiple medical problems including mild COPD, chronic nonspecific interstitial pneumonia, chronic diastolic congestive heart failure, obstructive sleep apnea syndrome, bronchiectasis,/traction bronchiectasis, patient was last seen in the office back in February, previous CT of the chest showed minimal interstitial lung disease. Patient is maintained on albuterol is also on Trelegy . And was admitted through the emergency room yesterday mostly with a few days' history/1 week history of cough, shortness of breath, but neurologically he had blurred vision lasting for about 10 minutes. His blurred vision lasted about 10 minutes, and he had no other neurological symptoms, no slurred speech, no facial droop. Denies any trauma. Patient is maintained on Plavix. CT of the head showed evidence of cerebral atrophy and minimal chronic small vessel ischemia. No acute process was noted. Chest x-ray showed evidence of possible interstitial edema or interstitial infiltrates, COVID-19 testing was negative. Patient was given Lasix, his BNP level was normal, and his chest x-ray today shows definite improvement compared to the chest x-ray he had in the ER last night. Nonetheless the patient continues to have intermittent cough wheezing shortness of breath. Describes the cough as nonproductive. He had no fever no chills no hemoptysis and no chest pain. Patient was admitted and this consult was initiated Patient was reevaluated today on 06/17/22, patient seems to be doing better today, breathing easier, less cough and less wheezing less shortness of breath. Patient is actually responding to bronchodilators, antibiotics, and diuretics. He was seen by neurology and felt that he may have had a TIA/CVA. Patient has no more diplopia. Labs today including CBC and basic metabolic profile renal profile are all normal. His pro-calcitonin level is low 0.08 Progress note dated 06/18/2022. 82-year-old male seen in consultation at couple days ago by my partner. Currently, the patient's resting comfortably. He is in room 382. The patient is feeling better. He's currently on 4 L. He feels like his breathing is improved. He continues on bronchodilators, antibiotics, and diuretics. Neurology apparently saw the patient and felt that the patient may have had a TIA. Glucose is 342. No other labs today. Angiography CT, was negative for any significant stenosis. The patient is seen today 06/19/2022 in follow-up on the regular medical floor. He is currently sitting up in a chair at bedside. Awake and alert in no acute distress. He denies any worsening shortness of breath, cough or congestion. No fever or chills. He is anxious to go home. Objective - Vital Signs Vital signs: Vital Signs Temp 98.7 F 06/19/22 12:33 Pulse 72 06/19/22 12:33 Resp 18 06/19/22 12:33 BP 132/69 06/19/22 12:33 Pulse Ox 98 06/19/22 12:33 FiO2 Intake & Output 06/18/22 06/19/22 06/19/22 18:59 06:59 18:59 Intake Total 1486 118 Balance 1486 118 Weight 100.3 kg Intake: Oral 1486 118 Other: Voiding Method Toilet Urinal # Voids 1 - Exam GENERAL EXAM: Alert, very pleasant 82-year-old male patient, comfortable in no apparent distress. HEAD: Normocephalic. EYES: Normal reaction of pupils, equal size. NOSE: Clear with pink turbinates. THROAT: No erythema or exudates. NECK: No masses, no JVD. CHEST: No chest wall deformity. LUNGS: Equal air entry with no crackles, wheeze, rhonchi or dullness. CVS: S1 and S2 normal with no audible murmur, regular rhythm. ABDOMEN: No hepatosplenomegaly, normal bowel sounds, no guarding or rigidity. SPINE: No scoliosis or deformity SKIN: No rashes CENTRAL NERVOUS SYSTEM: No focal deficits, tone is normal in all 4 extremities. EXTREMITIES: There is no peripheral edema. No clubbing, no cyanosis. Peripheral pulses are intact. - Labs CBC & Chem 7: 06/19/22 08:34 06/19/22 08:34 Labs: Abnormal Lab Results - Last 24 Hours (Table) 06/18/22 06/18/22 06/19/22 Range/Units 16:32 19:42 03:30 WBC (3.8-10.6) k/uL Neutrophils # (1.3-7.7) k/uL Monocytes # (0-1.0) k/uL Sodium (137-145) mmol/L Chloride (98-107) mmol/L BUN (9-20) mg/dL Glucose (74-99) mg/dL POC Glucose (mg/dL) 316 H 281 H 217 H (70-110) mg/dL 06/19/22 06/19/22 06/19/22 Range/Units 05:54 08:34 08:34 WBC 23.7 H (3.8-10.6) k/uL Neutrophils # 20.6 H (1.3-7.7) k/uL Monocytes # 1.7 H (0-1.0) k/uL Sodium 132 L (137-145) mmol/L Chloride 91 L (98-107) mmol/L BUN 31 H (9-20) mg/dL Glucose 225 H (74-99) mg/dL POC Glucose (mg/dL) 204 H (70-110) mg/dL 06/19/22 Range/Units 12:00 WBC (3.8-10.6) k/uL Neutrophils # (1.3-7.7) k/uL Monocytes # (0-1.0) k/uL Sodium (137-145) mmol/L Chloride (98-107) mmol/L BUN (9-20) mg/dL Glucose (74-99) mg/dL POC Glucose (mg/dL) 195 H (70-110) mg/dL Assessment and Plan Assessment: Acute on chronic hypoxemic respiratory failure, secondary to an acute exacerbation of COPD, and chronic nonspecific interstitial pneumonitis. Chronic diastolic CHF. Previous history of significant tobacco use. History of CAD, with previous bypass grafting and coronary artery stenting. Obstructive sleep apnea syndrome, maintained on CPAP. Obesity. Gen. medical debility. Hiatal hernia. Moderate aortic stenosis. Mild interstitial lung disease and traction bronchiectasis. Peripheral vascular occlusive disease. Generalized anxiety disorder. Diplopia, secondary to possible TIA. Plan: The patient was seen and evaluated Stable for discharge from pulmonary standpoint Follow-up in the office in 1 week I have personally seen and examined the patient, performed the documentation and the assessment and plan as written. Number of minutes spent on the visit. 10
== END 2022-06-19 15:00 | disposition home or self-care (01) | DRG 190 ==
LOC: EC 16:55 → 3SCARD 19:32
PROVIDERS: ADMIT Internal Medicine; ATTEND Internal Medicine
DX: J44.1 Chronic obstructive pulmonary disease with (acute) exacerbation (principal); J96.21 Acute and chronic respiratory failure with hypoxia; G45.9 Transient cerebral ischemic attack, unspecified; I50.32 Chronic diastolic (congestive) heart failure; I11.0 Hypertensive heart disease with heart failure; I45.10 Unspecified right bundle-branch block; I35.0 Nonrheumatic aortic (valve) stenosis; I73.9 Peripheral vascular disease, unspecified; M48.02 Spinal stenosis, cervical region; H53.2 Diplopia; J84.89 Other specified interstitial pulmonary diseases; T38.0X5A Adverse effect of glucocorticoids and synthetic analogues, initial encounter; R73.9 Hyperglycemia, unspecified; R44.1 Visual hallucinations; I25.10 Atherosclerotic heart disease of native coronary artery without angina pectoris; G47.33 Obstructive sleep apnea (adult) (pediatric); F41.1 Generalized anxiety disorder; E78.5 Hyperlipidemia, unspecified; F32.A Depression, unspecified; E66.9 Obesity, unspecified; R53.81 Other malaise; K44.9 Diaphragmatic hernia without obstruction or gangrene; Z20.822 Contact with and (suspected) exposure to COVID-19; Z79.899 Other long term (current) drug therapy; Z79.82 Long term (current) use of aspirin; Z79.02 Long term (current) use of antithrombotics/antiplatelets; Z68.33 Body mass index [BMI] 33.0-33.9, adult; Z91.199 Patient's noncompliance with other medical treatment and regimen due to unspecified reason; Z98.49 Cataract extraction status, unspecified eye; Z99.81 Dependence on supplemental oxygen; Z95.5 Presence of coronary angioplasty implant and graft; Z95.1 Presence of aortocoronary bypass graft; Z87.891 Personal history of nicotine dependence; Z82.49 Family history of ischemic heart disease and other diseases of the circulatory system; Z82.3 Family history of stroke
CPT/HCPCS: 36415; 70450; 70496; 70498; 71045; 71046; 72125; 80048; 80053; 80061; 83036; 83605; 83880; 84145; 84443; 84484; 85025; 85379; 85610; 85730; 87502; 87635; 93005; 93306; 93880; 94640; 94760; 96374; 99285

== ENCOUNTER 2022-07-09 18:02 | Inpatient (IN) | payer MEDICARE ==
--- NOTE | 2022-07-09 19:16 | XR ---
EXAMINATION TYPE: XR chest 2V DATE OF EXAM: 07/09/2022 COMPARISON: NONE HISTORY: Short of breath TECHNIQUE: Single view FINDINGS: Heart size is top normal. There are sternal wires. There is coarse interstitial density in the lungs. No pleural effusion. No definite heart failure. IMPRESSION: Coarse interstitial density consistent with some mild interstitial pneumonia which is new compared to old exam. Mild congestive heart failure not entirely excluded.
[2022-07-09 20:18] LABS: Basophils # (A) 0.1 k/uL (0-0.2); Basophils % (A) 1 %; Eosinophils # (A) 0.3 k/uL (0-0.7); Eosinophils % (A) 4 %; HCT 42.2 % (39.0-53.0); HGB 14.3 gm/dL (13.0-17.5); Lymphocytes # (A) 1.3 k/uL (1.0-4.8); Lymphocytes % (A) 20 %; MCH 31.8 pg (25.0-35.0); MCHC 33.8 g/dL (31.0-37.0); Monocytes # (A) 0.5 k/uL (0-1.0); Monocytes % (A) 7 %; Neutrophils # (A) 4.2 k/uL (1.3-7.7); Neutrophils % (A) 66 %; Platelet Count 152 k/uL (150-450); RBC 4.49 m/uL (4.30-5.90); RDW 12.7 % (11.5-15.5); WBC 6.4 k/uL (3.8-10.6)
[2022-07-09 20:31] LABS: ALT 38 U/L (4-49); AST 29 U/L (17-59); African American GFR (CKD) >90 (>60 ml/min/1.73 sqM); Alkaline Phosphatase 103 U/L (38-126); Anion Gap 9 mmol/L; Blood Urea Nitrogen 18 mg/dL (9-20); Calcium 8.6 mg/dL (8.4-10.2); Carbon Dioxide 25 mmol/L (22-30); Chloride 103 mmol/L (98-107); Glucose 140 mg/dL (74-99); Non-African American GFR(CKD) 86 (>60 ml/min/1.73 sqM); Potassium 4.4 mmol/L (3.5-5.1); Sodium 137 mmol/L (137-145); Total Bilirubin 0.5 mg/dL (0.2-1.3); Total Protein 6.4 g/dL (6.3-8.2)
[2022-07-09 21:01] LABS: INR 2.3 (<1.2); Partial Thromboplastin Time 29.7 sec (22.0-30.0); Prothrombin Time 22.9 sec (9.0-12.0)
[2022-07-09] MEDS ORDERED: IPRATROPIUM-ALBUTEROL 3 ML NEB INHALATION STA ×2 (21:07→23:39)
[2022-07-09] MEDS ORDERED: methylPREDNISolone SOD SUCCI 125 MG/2 ML VIAL IV STA (21:08)
[2022-07-09] MEDS ORDERED: AZITHROMYCIN 500 MG in SODIUM CHLORIDE 0.9% 250 ML IVPB STA (21:16)
--- NOTE | 2022-07-09 21:40 | ED ---
SOB HPI - General Chief Complaint: Shortness of Breath Stated Complaint: dizziness - CHF Time Seen by Provider: 07/09/22 20:57 Source: patient, RN notes reviewed Mode of arrival: ambulatory Limitations: no limitations - History of Present Illness Initial Comments: This is a pleasant 82-year-old male with a history of multiple medical issues to include coronary artery disease, congestive heart., And COPD. Patient is a previous heavy smoker. Patient quit several years ago. Patient does have a history of pulmonary fibrosis. Patient states he started feeling ill yesterday. Patient states she started feeling shaky, generally weak, a little off balance and having shortness of breath. Patient had similar symptomology about one month ago and was admitted here to the hospital. Patient denies any runny nose. Patient denies any sore throat. Patient did not have a COVID-19 test since the last admission. Patient had triage labs done. LIGHTHEADEDNESS, general fatigue, No headache, no fever or chills, no changes in vision or hearing, no sore throat or difficulty with speech, no neck pain, no chest pain, POSITIVE dry cough, no abdominal pain, no nausea or vomiting, no changes in urination or bowel movements, no numbness or tingling, no extremity pain, no skin rashes or lesions. Past medical, surgical, social, and family history reviewed. - Related Data Home Medications Medication Instructions Recorded Confirmed Ezetimibe [Zetia] 10 mg PO DAILY 02/13/16 07/09/22 atenoloL [Tenormin] 25 mg PO DAILY 02/13/16 07/09/22 Nitroglycerin Sl Tabs [Nitrostat] 0.4 mg SL Q5M PRN 06/22/16 07/09/22 clonazePAM [KlonoPIN] 0.5 mg PO DAILY PRN 06/22/16 07/09/22 Clopidogrel [Plavix] 75 mg PO DAILY 10/20/19 07/09/22 Montelukast Sodium [Singulair] 10 mg PO DAILY 06/22/20 07/09/22 DULoxetine HCL [Cymbalta] 60 mg PO DAILY 07/19/21 07/09/22 Fluticasone/Umeclidin/Vilanter 1 puff INHALATION RT-DAILY 03/06/22 07/09/22 [Trelegy Ellipta 100-62.5-25] Ipratropium-Albuterol Nebulize 3 ml INHALATION RT-QID PRN 03/06/22 07/09/22 [Duoneb 0.5 mg-3 mg/3 ml Soln] predniSONE 5 mg PO DAILY 03/06/22 07/09/22 Previous Rx's Medication Instructions Recorded Pantoprazole [Protonix] 40 mg PO DAILY #15 tab 03/08/22 Aspirin 81 mg PO DAILY #30 tab 06/19/22 Atorvastatin [Lipitor] 40 mg PO DAILY #30 tab 06/19/22 Furosemide [Lasix] 40 mg PO DAILY #30 tab 06/19/22 Allergies Allergy/AdvReac Type Severity Reaction Status Date / Time No Known Allergies Allergy Verified 07/09/22 22:24 Review of Systems ROS Statement: Those systems with pertinent positive or pertinent negative responses have been documented in the HPI. ROS Other: All systems not noted in ROS Statement are negative. Past Medical History Past Medical History: Coronary Artery Disease (CAD), Heart Failure, COPD, Hyperlipidemia, Hypertension, Sleep Apnea/CPAP/BIPAP Additional Past Medical History / Comment(s): COPD, obesity, coronary artery disease with previous bypass surgery, cataracts, hiatal hernia, obstructive sleep apnea with CPAP therapy. 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 Mother Family Medical History: CVA/TIA Additional Family Medical History / Comment(s): at age 99 3/4 from a stoke General Exam - General Exam Comments Initial Comments: Patient does not appear to be in any significant distress at the time I'm assessing him. Does not appear toxic. Patient noted to be hypertensive. Remainder of vital signs are stable. Capillary refill less than 2 seconds. No mottling. Limitations: no limitations General appearance: obese Head exam: Present: atraumatic, normocephalic, normal inspection Eye exam: Present: normal appearance, PERRL, EOMI. Absent: scleral icterus, conjunctival injection, periorbital swelling ENT exam: Present: normal exam, normal oropharynx, mucous membranes moist, normal external ear exam. Absent: mucous membranes dry Neck exam: Present: normal inspection, full ROM. Absent: tenderness, meningismus, lymphadenopathy Respiratory exam: Present: rhonchi, other (No definitive wheezing. No increased work of breathing. Pulse oximetry is 97% on room air.). Absent: respiratory distress, wheezes, rales, stridor Cardiovascular Exam: Present: regular rate, normal rhythm, normal heart sounds. Absent: systolic murmur, diastolic murmur, rubs, gallop, clicks GI/Abdominal exam: Present: soft, normal bowel sounds. Absent: distended, tenderness, guarding, rebound, rigid Extremities exam: Present: normal inspection, full ROM, normal capillary refill. Absent: tenderness, pedal edema, joint swelling, calf tenderness Back exam: Present: normal inspection Neurological exam: Present: alert, oriented X3, CN II-XII intact Psychiatric exam: Present: normal affect, normal mood Skin exam: Present: warm, dry, intact, normal color. Absent: rash Course Vital Signs 07/09/22 07/09/22 07/09/22 18:14 22:53 22:56 Temperature 98.2 F Pulse Rate 83 84 78 Respiratory 20 Rate Blood Pressure 170/75 O2 Sat by Pulse 97 96 Oximetry 07/09/22 23:03 Temperature Pulse Rate 79 Respiratory Rate Blood Pressure O2 Sat by Pulse Oximetry - Reevaluation(s) Reevaluation #1: 07/09/22 23:25 Patient was reevaluated several times. Patient ended up having an elevated d- dimer. Patient's CAT scan did show evidence of interstitial pneumonia. I did reevaluate the patient. When patient stood up he became lightheaded. Patient does not have any focal neurologic deficits but did find it difficult to walk. I suspect the patient's weakness is due to viral infection. Possible atypical pneumonia. We will cover the patient with macrolide antibiotics as well as ceftriaxone. Patient will be admitted to the hospital for further treatment and evaluation. Reevaluation #2: 07/09/22 23:39 Repeat bilateral breath sounds now reveal wheezing. Patient still has sensation shortness of breath and lightheadedness when he stands. - Consultations Consultation #1: Case discussed with Lolis from [facility]. Patient admits to that service for further evaluation. Consultation for pulmonary remade. Medical Decision Making - Medical Decision Making Supervising Dr. Lo--The case was discussed in detail with ED attending physician. Presentation, findings, treatment plan discussed in detail. Patient symptomology consistent with viral bronchitis. BNP was normal. Chest x-ray showed possible interstitial pneumonia. Patient was reevaluated and still had some difficulty breathing. Patient also got lightheaded when he went to get up not appear to be stable on his feet. No focal neurologic findings. We'll keep the patient for COPD exacerbation. We'll treat with antibiotics and breathing treatments. Corticosteroids. Interestingly, patient had a elevated INR 2.3. Patient is not on anticoagulatio n medication. I'm going to treat the patient with bilateral compression devices until we will repeat the INR in the morning. Admitted to [facility] - Lab Data Result diagrams: 07/09/22 20:01 07/09/22 20:01 Lab Results 07/09/22 07/09/22 07/09/22 Range/Units 20:01 20:01 20:01 WBC 6.4 (3.8-10.6) k/uL RBC 4.49 (4.30-5.90) m/uL Hgb 14.3 (13.0-17.5) gm/dL Hct 42.2 (39.0-53.0) % MCV 94.0 (80.0-100.0) fL MCH 31.8 (25.0-35.0) pg MCHC 33.8 (31.0-37.0) g/dL RDW 12.7 (11.5-15.5) % Plt Count 152 (150-450) k/uL MPV 10.0 Neutrophils % 66 % Lymphocytes % 20 % Monocytes % 7 % Eosinophils % 4 % Basophils % 1 % Neutrophils # 4.2 (1.3-7.7) k/uL Lymphocytes # 1.3 (1.0-4.8) k/uL Monocytes # 0.5 (0-1.0) k/uL Eosinophils # 0.3 (0-0.7) k/uL Basophils # 0.1 (0-0.2) k/uL PT 22.9 H (9.0-12.0) sec INR 2.3 H (<1.2) APTT 29.7 (22.0-30.0) sec D-Dimer 0.72 H (<0.60) mg/L FEU Sodium 137 (137-145) mmol/L Potassium 4.4 (3.5-5.1) mmol/L Chloride 103 (98-107) mmol/L Carbon Dioxide 25 (22-30) mmol/L Anion Gap 9 mmol/L BUN 18 (9-20) mg/dL Creatinine 0.76 (0.66-1.25) mg/dL Est GFR (CKD-EPI)AfAm >90 (>60 ml/min/1.73 sqM) Est GFR (CKD-EPI)NonAf 86 (>60 ml/min/1.73 sqM) Glucose 140 H (74-99) mg/dL Plasma Lactic Acid Ronaldo (0.7-2.0) mmol/L Calcium 8.6 (8.4-10.2) mg/dL Total Bilirubin 0.5 (0.2-1.3) mg/dL AST 29 (17-59) U/L ALT 38 (4-49) U/L Alkaline Phosphatase 103 (38-126) U/L Troponin I (0.000-0.034) ng/mL NT-Pro-B Natriuret Pep pg/mL Total Protein 6.4 (6.3-8.2) g/dL Albumin 4.0 (3.5-5.0) g/dL Influenza Type A (PCR) (Not Detectd) Influenza Type B (PCR) (Not Detectd) RSV (PCR) (Not Detectd) SARS-CoV-2 (PCR) (Not Detectd) 07/09/22 07/09/22 07/09/22 Range/Units 20:01 20:01 20:01 WBC (3.8-10.6) k/uL RBC (4.30-5.90) m/uL Hgb (13.0-17.5) gm/dL Hct (39.0-53.0) % MCV (80.0-100.0) fL MCH (25.0-35.0) pg MCHC (31.0-37.0) g/dL RDW (11.5-15.5) % Plt Count (150-450) k/uL MPV Neutrophils % % Lymphocytes % % Monocytes % % Eosinophils % % Basophils % % Neutrophils # (1.3-7.7) k/uL Lymphocytes # (1.0-4.8) k/uL Monocytes # (0-1.0) k/uL Eosinophils # (0-0.7) k/uL Basophils # (0-0.2) k/uL PT (9.0-12.0) sec INR (<1.2) APTT (22.0-30.0) sec D-Dimer (<0.60) mg/L FEU Sodium (137-145) mmol/L Potassium (3.5-5.1) mmol/L Chloride (98-107) mmol/L Carbon Dioxide (22-30) mmol/L Anion Gap mmol/L BUN (9-20) mg/dL Creatinine (0.66-1.25) mg/dL Est GFR (CKD-EPI)AfAm (>60 ml/min/1.73 sqM) Est GFR (CKD-EPI)NonAf (>60 ml/min/1.73 sqM) Glucose (74-99) mg/dL Plasma Lactic Acid Ronaldo 1.5 (0.7-2.0) mmol/L Calcium (8.4-10.2) mg/dL Total Bilirubin (0.2-1.3) mg/dL AST (17-59) U/L ALT (4-49) U/L Alkaline Phosphatase (38-126) U/L Troponin I <0.012 (0.000-0.034) ng/mL NT-Pro-B Natriuret Pep 121 pg/mL Total Protein (6.3-8.2) g/dL Albumin (3.5-5.0) g/dL Influenza Type A (PCR) (Not Detectd) Influenza Type B (PCR) (Not Detectd) RSV (PCR) (Not Detectd) SARS-CoV-2 (PCR) (Not Detectd) 07/09/22 Range/Units 21:40 WBC (3.8-10.6) k/uL RBC (4.30-5.90) m/uL Hgb (13.0-17.5) gm/dL Hct (39.0-53.0) % MCV (80.0-100.0) fL MCH (25.0-35.0) pg MCHC (31.0-37.0) g/dL RDW (11.5-15.5) % Plt Count (150-450) k/uL MPV Neutrophils % % Lymphocytes % % Monocytes % % Eosinophils % % Basophils % % Neutrophils # (1.3-7.7) k/uL Lymphocytes # (1.0-4.8) k/uL Monocytes # (0-1.0) k/uL Eosinophils # (0-0.7) k/uL Basophils # (0-0.2) k/uL PT (9.0-12.0) sec INR (<1.2) APTT (22.0-30.0) sec D-Dimer (<0.60) mg/L FEU Sodium (137-145) mmol/L Potassium (3.5-5.1) mmol/L Chloride (98-107) mmol/L Carbon Dioxide (22-30) mmol/L Anion Gap mmol/L BUN (9-20) mg/dL Creatinine (0.66-1.25) mg/dL Est GFR (CKD-EPI)AfAm (>60 ml/min/1.73 sqM) Est GFR (CKD-EPI)NonAf (>60 ml/min/1.73 sqM) Glucose (74-99) mg/dL Plasma Lactic Acid Ronaldo (0.7-2.0) mmol/L Calcium (8.4-10.2) mg/dL Total Bilirubin (0.2-1.3) mg/dL AST (17-59) U/L ALT (4-49) U/L Alkaline Phosphatase (38-126) U/L Troponin I (0.000-0.034) ng/mL NT-Pro-B Natriuret Pep pg/mL Total Protein (6.3-8.2) g/dL Albumin (3.5-5.0) g/dL Influenza Type A (PCR) Not Detected (Not Detectd) Influenza Type B (PCR) Not Detected (Not Detectd) RSV (PCR) Not Detected (Not Detectd) SARS-CoV-2 (PCR) Not Detected (Not Detectd) Disposition Clinical Impression: COPD with exacerbation, Interstitial pneumonia, Uncontrolled hypertension, Lightheadedness, Elevated INR Disposition: ADMITTED IP TO THIS HOSP Condition: Stable Is patient prescribed a controlled substance at d/c from ED?: No Referrals: Doretha Rose MD [Primary Care Provider] - 1-2 days Time of Disposition: 23:25 Decision to Admit Reason: Admit from EC Decision Time: 23:25
[2022-07-09] MEDS ORDERED: SODIUM CHLORIDE 0.9% 500 ML 250 ML IV ONE (22:00)
--- NOTE | 2022-07-09 22:43 | CT ---
EXAMINATION TYPE: CT chest angio for PE DATE OF EXAM: 07/09/2022 COMPARISON: 07/30/2021 HISTORY: SOB and elevated d-dimer. CT DLP: 585.2 mGycm Automated exposure control for dose reduction was used. CONTRAST: Performed with IV Contrast, patient injected with 76 mL of Isovue 370. There are Three-D postprocessed images. There is some mild pulmonary emphysema. There is subpleural reticular infiltrates in both lungs consi stent with fibrosis and subsegmental atelectasis. Heart is enlarged. There is no mediastinal adenopathy. There are no hilar masses. There is normal contrast opacification of the pulmonary arteries. No filling defect. Thoracic aorta is intact. No aneurysm or dissection th ere is mild atheromatous change in the thoracic aorta. The thoracic spine is intact. No compression fracture. There is spurring in the thoracic spine. IMPRESSION: No evidence of pulmonary embolism. Mild cardiomegaly. Mild emphysema. Pulmonary interstitial fibrosis. Acute pneumonia at the lung bases is possible. Lung disease not significantly different than old exam.
[2022-07-09] MEDS ORDERED: ALBUTEROL NEBULIZED 2.5 MG/3 ML INHALATION STA (23:39)
[2022-07-09] MEDS ORDERED: NALOXONE 0.4 MG/ML 1 ML VIAL IVP PRN (23:43)
[2022-07-09] MEDS ORDERED: ALBUTEROL NEBULIZED 2.5 MG/3 ML INHALATION PRN (23:43)
[2022-07-09] MEDS ORDERED: PNEUMONIA PROTOCOL UTILIZED 1 EACH MISC PO PRN (23:43)
[2022-07-09] MEDS ORDERED: ONDANSETRON 4 MG/2 ML VIAL IVP PRN (23:48)
[2022-07-09] MEDS ORDERED: clonazePAM 0.5 MG TAB PO PRN (23:49)
[2022-07-10] MEDS: guaiFENesin 600 MG TABLET.ER PO SCH ×3 (00:29→22:39)
[2022-07-10] MEDS: methylPREDNISolone SOD SUCCI 125 MG/2 ML VIAL IV SCH ×2 (01:25→05:39)
[2022-07-10 04:03] LABS: Basophils % (A) 0 %; Eosinophils % (A) 1 %; HCT 41.1 % (39.0-53.0); HGB 13.8 gm/dL (13.0-17.5); Lymphocytes # (A) 0.3 k/uL (1.0-4.8); Lymphocytes % (A) 7 %; MCH 31.8 pg (25.0-35.0); MCHC 33.5 g/dL (31.0-37.0); MCV 94.8 fL (80.0-100.0); Mean Platelet Volume 9.9; Monocytes # (A) 0.1 k/uL (0-1.0); Monocytes % (A) 3 %; Neutrophils # (A) 3.7 k/uL (1.3-7.7); Neutrophils % (A) 89 %; Platelet Count 126 k/uL (150-450); RBC 4.34 m/uL (4.30-5.90); RDW 12.7 % (11.5-15.5); WBC 4.1 k/uL (3.8-10.6)
[2022-07-10 04:11] LABS: Prothrombin Time 10.7 sec (9.0-12.0)
[2022-07-10 04:41] LABS: ALT 36 U/L (4-49); AST 29 U/L (17-59); African American GFR (CKD) >90 (>60 ml/min/1.73 sqM); Albumin 3.8 g/dL (3.5-5.0); Alkaline Phosphatase 88 U/L (38-126); Anion Gap 12 mmol/L; Blood Urea Nitrogen 15 mg/dL (9-20); Calcium 8.3 mg/dL (8.4-10.2); Carbon Dioxide 19 mmol/L (22-30); Chloride 106 mmol/L (98-107); Glucose 285 mg/dL (74-99); Non-African American GFR(CKD) 83 (>60 ml/min/1.73 sqM); Potassium 4.3 mmol/L (3.5-5.1); Sodium 137 mmol/L (137-145); Total Bilirubin 0.4 mg/dL (0.2-1.3); Total Protein 6.5 g/dL (6.3-8.2)
[2022-07-10] MEDS: IPRATROPIUM 0.5 MG/2.5 ML NEBU INHALATION SCH ×4 (06:58→19:15)
[2022-07-10] MEDS: SYMBICORT 80-4.5 MCG INHALER INHALATION SCH ×2 (06:58→19:13)
[2022-07-10] MEDS: IPRATROPIUM-ALBUTEROL 3 ML NEB INHALATION PRN ×4 (06:58→19:13)
[2022-07-10] MEDS: ATORVASTATIN 40 MG TAB PO SCH (08:06)
[2022-07-10] MEDS: FUROSEMIDE 40 MG TAB PO SCH (08:06)
[2022-07-10] MEDS: EZETIMIBE 10 MG TAB PO SCH (08:06)
[2022-07-10] MEDS: MONTELUKAST 10 MG TAB PO SCH (08:06)
[2022-07-10] MEDS: ASPIRIN 81 MG PO SCH (08:06)
[2022-07-10] MEDS: DULoxetine HCL 60 MG CAPSULE.DR PO SCH (08:06)
[2022-07-10] MEDS: CLOPIDOGREL 75 MG TAB PO SCH (08:06)
[2022-07-10] MEDS: atenoloL 25 MG TAB PO SCH (08:07)
[2022-07-10] MEDS ORDERED: HEPARIN SODIUM,PORCINE/PF 5,000 UNIT/0.5 ML SYRINGE SQ SCH (09:00)
[2022-07-10] MEDS: PANTOPRAZOLE 40 MG/10 ML VIAL IV SCH (09:38)
--- NOTE | 2022-07-10 11:13 | P.HPIM ---
History of Present Illness Patient is a pleasant 82-year-old obese male with history of COPD remote history of smoking came in with complains of shortness of breath cough. Patient felt better after breathing treatments was about to be discharged but was comparing of lightheadedness which presently resolved at this time patient although does have wheezing patient had a CT angios the chest which did not show any pulmonary embolism which did show some chronic findings of pulmonary fibrosis and with the infiltrate in bilateral lower lung chaudhry which was read as pneumonia although patient doesn't have any difficulty pneumonic infiltrate patient doesn't have any fever doesn't have leukocytosis, patient has cough without any sputum production. Broke Level Is Pending. Patient Had COVID-19, Influenza A and B Tests All of Which Are Negative. Patient Was Complaining of Some Fatigue Patient Feels Much Better. REVIEW OF SYSTEMS: CONSTITUTIONAL: No fever, no malaise, no fatigue. HEENT: No recent visual problems or hearing problems. Denied any sore throat. CARDIOVASCULAR: No chest pain, orthopnea, PND, no palpitations, no syncope. PULMONARY: no hemoptysis. GASTROINTESTINAL: No diarrhea, no nausea, no vomiting, no abdominal pain. NEUROLOGICAL: No headaches, no weakness, no numbness. HEMATOLOGICAL: Denies any bleeding or petechiae. GENITOURINARY: Denies any burning micturition, frequency, or urgency. MUSCULOSKELETAL/RHEUMATOLOGICAL: Denies any joint pain, swelling, or any muscle pain. ENDOCRINE: Denies any polyuria or polydipsia. The rest of the 14-point review of systems is negative. PHYSICAL EXAMINATION: GENERAL: The patient is alert and oriented x3, not in any acute distress. Obese HEENT: Pupils are round and equally reacting to light. EOMI. No scleral icterus. No conjunctival pallor. Normocephalic, atraumatic. No pharyngeal erythema. No thyromegaly. CARDIOVASCULAR: S1 and S2 present. No murmurs, rubs, or gallops. PULMONARY: Coarse breath sounds mild expiratory wheezing ABDOMEN: Soft, nontender, nondistended, normoactive bowel sounds. No palpable organomegaly. MUSCULOSKELETAL: No joint swelling or deformity. EXTREMITIES: No cyanosis, clubbing, or pedal edema. NEUROLOGICAL: Gross neurological examination did not reveal any focal deficits. SKIN: No rashes. Assessment and plan -Shortness of breath: COPD etc. exhibition patient may have bronchitis as well patient will be continued on azithromycin if for procrastinated is not had a Rocephin will be discussed uterine -Acute on chronic hypercapnic respiratory failure secondary to COPD exacerbation -Coronary artery disease -Obstructive sleep apnea -History of diastolic CHF although patient is not in heart failure exacerbation -Obesity -Hyperlipidemia -Depression DVT prophylaxis: Lovenox Past Medical History Past Medical History: Coronary Artery Disease (CAD), Heart Failure, COPD, Hyperlipidemia, Hypertension, Sleep Apnea/CPAP/BIPAP Additional Past Medical History / Comment(s): COPD, obesity, coronary artery disease with previous bypass surgery, cataracts, hiatal hernia, obstructive sleep apnea with CPAP therapy. 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 Mother Family Medical History: CVA/TIA Additional Family Medical History / Comment(s): at age 99 3/4 from a stoke Medications and Allergies Home Medications Medication Instructions Recorded Confirmed Type Ezetimibe [Zetia] 10 mg PO DAILY 02/13/16 07/09/22 History atenoloL [Tenormin] 25 mg PO DAILY 02/13/16 07/09/22 History Nitroglycerin Sl Tabs [Nitrostat] 0.4 mg SL Q5M PRN 06/22/16 07/09/22 History clonazePAM [KlonoPIN] 0.5 mg PO DAILY PRN 06/22/16 07/09/22 History Clopidogrel [Plavix] 75 mg PO DAILY 10/20/19 07/09/22 History Montelukast Sodium [Singulair] 10 mg PO DAILY 06/22/20 07/09/22 History DULoxetine HCL [Cymbalta] 60 mg PO DAILY 07/19/21 07/09/22 History Fluticasone/Umeclidin/Vilanter 1 puff INHALATION RT-DAILY 03/06/22 07/09/22 History [Jagjitlelizandro Ellipta 100-62.5-25] Ipratropium-Albuterol Nebulize 3 ml INHALATION RT-QID PRN 03/06/22 07/09/22 Hi story [Duoneb 0.5 mg-3 mg/3 ml Soln] predniSONE 5 mg PO DAILY 03/06/22 07/09/22 History Pantoprazole [Protonix] 40 mg PO DAILY #15 tab 03/08/22 07/09/22 Rx Aspirin 81 mg PO DAILY #30 tab 06/19/22 07/09/22 Rx Atorvastatin [Lipitor] 40 mg PO DAILY #30 tab 06/19/22 07/09/22 Rx Furosemide [Lasix] 40 mg PO DAILY #30 tab 06/19/22 07/09/22 Rx Allergies Allergy/AdvReac Type Severity Reaction Status Date / Time No Known Allergies Allergy Verified 07/09/22 22:24 Physical Exam Vitals: Vital Signs Temp Pulse Resp BP Pulse Ox 07/10/22 11:09 98 07/10/22 10:55 86 07/10/22 07:38 107 H 16 136/75 95 07/10/22 07:11 95 07/10/22 06:58 97 07/10/22 04:03 102 H 18 124/73 96 07/10/22 00:57 96 07/10/22 00:46 97 07/10/22 00:35 94 94 L 07/09/22 23:03 79 07/09/22 22:56 78 07/09/22 22:53 84 96 07/09/22 18:14 98.2 F 83 20 170/75 97 Intake and Output 07/09/22 07/10/22 07/10/22 22:59 06:59 14:59 Other: Weight 102.058 kg Results CBC & Chem 7: 07/10/22 03:47 07/10/22 03:47 Labs: Abnormal Lab Results - Last 24 Hours (Table) 07/09/22 07/09/22 07/10/22 Range/Units 20:01 20:01 03:47 Plt Count 126 L (150-450) k/uL Lymphocytes # 0.3 L (1.0-4.8) k/uL PT 22.9 H (9.0-12.0) sec INR 2.3 H (<1.2) D-Dimer 0.72 H (<0.60) mg/L FEU Carbon Dioxide (22-30) mmol/L Glucose 140 H (74-99) mg/dL Calcium (8.4-10.2) mg/dL 07/10/22 Range/Units 03:47 Plt Count (150-450) k/uL Lymphocytes # (1.0-4.8) k/uL PT (9.0-12.0) sec INR (<1.2) D-Dimer (<0.60) mg/L FEU Carbon Dioxide 19 L (22-30) mmol/L Glucose 285 H (74-99) mg/dL Calcium 8.3 L (8.4-10.2) mg/dL
[2022-07-10] MEDS ORDERED: polyethylene glycoL 3350 17 GM POWD.PACK PO PRN (11:14)
[2022-07-10] MEDS ORDERED: SENNOSIDES 8.6 MG TAB PO PRN (11:14)
--- NOTE | 2022-07-10 11:52 | P.CNPUL ---
History of Present Illness Consult date: 07/10/22 Requesting physician: Mey Alaniz Reason for consult: dyspnea, cough, COPD, hypoxemia, abnormal CXR/CT Chief complaint: Shortness of breath and cough. History of present illness: Pulmonary consult dated 07/10/2022. 82-year-old male, with a history of CAD, congestive heart failure, and COPD. T he patient has history of previous heavy tobacco use. His COPD is moderate in severity, with an FEV1 percent is 72. He comes into the hospital complaining of increasing shortness of breath, nonproductive cough, and dizziness. The patient was recently in inpatient here between June 15 and June 19. He saw my partner, in the office, on June 25. Currently, the patient's resting comfortably in the emergency room, room 3. He is currently on room air. Is not receiving any IV fluids. He is seen in the emergency room. Other than a very harsh cough, he does not appear to be in any respiratory distress. There is no conversational dyspnea or use of accessory muscles. White count 4.1, hemoglobin 13.8, hematocrit 41.1, and platelet count 126,000. Sodium 137, potassium 4.3, chlorides 106, CO2 19, anion gap 12, BUN 15, and creatinine 0.83. Troponins were negative 3. N-terminal proBNP was normal. Testing for influenza A and influenza B was negative. Also, testing for respiratory syncytial virus, and coronavirus were negative. Urine Legionella antigen was also negative. The chest x-ray show some very mild interstitial changes. The CAT scan showed no evidence of pulmonary embolism. There is some mild interstitial fibrosis and some basilar changes are noted. Review of Systems REVIEW OF SYSTEMS: CONSTITUTIONAL: Weakness. NEUROLOGIC: Dizziness. HEENT: [ Negative.] CARDIAC: [Negative.] PULMONARY: Shortness of breath and cough. GI: [Negative.] : [Negative.] RHEUMATOLOGIC: [ Negative.] IMMUNOLOGIC: [ Negative.] ENDOCRINE: [Negative. ] DERMATOLOGIC: [Negative.] Past Medical History Past Medical History: Coronary Artery Disease (CAD), Heart Failure, COPD, Hyperlipidemia, Hypertension, Sleep Apnea/CPAP/BIPAP Additional Past Medical History / Comment(s): COPD, obesity, coronary artery disease with previous bypass surgery, cataracts, hiatal hernia, obstructive sleep apnea with CPAP therapy. 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 Mother Family Medical History: CVA/TIA Additional Family Medical History / Comment(s): at age 99 3/4 from a stoke Medications and Allergies Home Medications Medication Instructions Recorded Confirmed Type Ezetimibe [Zetia] 10 mg PO DAILY 02/13/16 07/09/22 History atenoloL [Tenormin] 25 mg PO DAILY 02/13/16 07/09/22 History Nitroglycerin Sl Tabs [Nitrostat] 0.4 mg SL Q5M PRN 06/22/16 07/09/22 History clonazePAM [KlonoPIN] 0.5 mg PO DAILY PRN 06/22/16 07/09/22 History Clopidogrel [Plavix] 75 mg PO DAILY 10/20/19 07/09/22 History Montelukast Sodium [Singulair] 10 mg PO DAILY 06/22/20 07/09/22 History DULoxetine HCL [Cymbalta] 60 mg PO DAILY 07/19/21 07/09/22 History Fluticasone/Umeclidin/Vilanter 1 puff INHALATION RT-DAILY 03/06/22 07/09/22 History [Trelegy Ellipta 100-62.5-25] Ipratropium-Albuterol Nebulize 3 ml INHALATION RT-QID PRN 03/06/22 07/09/22 History [Duoneb 0.5 mg-3 mg/3 ml Soln] predniSONE 5 mg PO DAILY 03/06/22 07/09/22 History Pantoprazole [Protonix] 40 mg PO DAILY #15 tab 03/08/22 07/09/22 Rx Aspirin 81 mg PO DAILY #30 tab 06/19/22 07/09/22 Rx Atorvastatin [Lipitor] 40 mg PO DAILY #30 tab 06/19/22 07/09/22 Rx Furosemide [Lasix] 40 mg PO DAILY #30 tab 06/19/22 07/09/22 Rx Allergies Allergy/AdvReac Type Severity Reaction Status Date / Time No Known Allergies Allergy Verified 07/09/22 22:24 Physical Exam Osteopathic Statement: *. No significant issues noted on an osteopathic structural exam other than those noted in the History and Physical/Consult. Vitals: Vital Signs Temp Pulse Resp BP Pulse Ox 07/10/22 11:09 98 07/10/22 10:55 86 07/10/22 07:38 107 H 16 136/75 95 07/10/22 07:11 95 07/10/22 06:58 97 07/10/22 04:03 102 H 18 124/73 96 07/10/22 00:57 96 07/10/22 00:46 97 07/10/22 00:35 94 94 L 07/09/22 23:03 79 07/09/22 22:56 78 07/09/22 22:53 84 96 07/09/22 18:14 98.2 F 83 20 170/75 97 Intake and Output 07/09/22 07/10/22 07/10/22 22:59 06:59 14:59 Other: Weight 102.058 kg No acute distress, oriented 3. Currently on room air. No respiratory distress. HEENT examination is grossly unremarkable. Neck supple. Full range of motion. No adenopathy thyromegaly or neck vein distention. Cardiovascular examination reveals regular rhythm rate. S1-S2 normal. No S3 or S4. No discernible murmur noted. Heart sounds are distant. Room air saturations are 97%. Lungs reveal coarse bilateral rhonchi, and expiratory wheezes. No crackles. Breath sounds are equal bilaterally. Room air saturation is 97%. Abdomen soft bowel sounds are heard. No masses or tenderness. Extremities are intact. No cyanosis clubbing or edema. Skin is without rash or lesion. Neurologic examination is brief but nonfocal. Results - Laboratory Findings CBC and BMP: 07/10/22 03:47 07/10/22 03:47 PT/INR, D-dimer PT 10.7 sec (9.0-12.0) 07/10/22 03:47 INR 1.0 (<1.2) 07/10/22 03:47 D-Dimer 0.72 mg/L FEU (<0.60) H 07/09/22 20:01 Abnormal lab findings: Abnormal Labs 07/09/22 07/09/22 07/10/22 20:01 20:01 03:47 Plt Count 126 L Lymphocytes # 0.3 L PT 22.9 H INR 2.3 H D-Dimer 0.72 H Carbon Dioxide Glucose 140 H Calcium 07/10/22 03:47 Plt Count Lymphocytes # PT INR D-Dimer Carbon Dioxide 19 L Glucose 285 H Calcium 8.3 L - Diagnostic Findings Chest x-ray: image reviewed CT scan - chest: image reviewed Assessment and Plan Assessment: Acute hypoxemic respiratory failure, secondary to COPD exacerbation, possibly complicated by interstitial pneumonia. Moderate COPD with an FEV1 that's 72% of predicted. Recent admission, for similar symptoms, between June 15 and June 19. History of CHF. History of CAD, with previous bypass grafting, and stent placement. History of hyperlipidemia. History of hypertension. History of sleep apnea syndrome, on home CPAP History of chronic cataracts. History of hiatal hernia. Plan: Plan dated 07/10/2022. The patient is seen in the emergency room, room 3. He likely has a COPD exa cerbation, which is possibly complicated by tracheobronchitis and/or interstitial pneumonia. The patient does not appear to be particularly ill, as his saturations are excellent on room air. He is also not manifesting any conversational dyspnea, or use of accessory muscles. X-rays, labs, and medi cations are all reviewed. The patient is currently on Rocephin, and Zithromax. In addition, the patient is receiving updrafts with albuterol sulfate and ipratropium bromide. We discontinued the corticosteroids. The patient is also on Symbicort, 2 puffs twice a day. We will continue to follow and make recommendations along the way. Time with Patient: Greater than 30
[2022-07-10] MEDS: ACETAMINOPHEN TAB 325 MG TAB PO PRN ×2 (18:16→22:39)
[2022-07-10] MEDS: AZITHROMYCIN 500 MG TAB PO SCH (22:40)
[2022-07-11 05:46] LABS: Mycoplasma IgG Antibody (EIA) 2.15 INDEX (<=0.90); Mycoplasma IgM Antibody 0.41 INDEX (<=0.90)
[2022-07-11] MEDS: SYMBICORT 80-4.5 MCG INHALER INHALATION SCH ×2 (09:03→19:24)
[2022-07-11] MEDS: IPRATROPIUM 0.5 MG/2.5 ML NEBU INHALATION SCH ×4 (09:03→21:07)
[2022-07-11] MEDS: PANTOPRAZOLE 40 MG/10 ML VIAL IV SCH (09:09)
[2022-07-11] MEDS: ENOXAPARIN 40 MG/0.4 ML SYRINGE SQ SCH (09:09)
[2022-07-11] MEDS: ASPIRIN 81 MG PO SCH (09:10)
[2022-07-11] MEDS: EZETIMIBE 10 MG TAB PO SCH (09:10)
[2022-07-11] MEDS: MONTELUKAST 10 MG TAB PO SCH (09:10)
[2022-07-11] MEDS: DULoxetine HCL 60 MG CAPSULE.DR PO SCH (09:10)
[2022-07-11] MEDS: guaiFENesin 600 MG TABLET.ER PO SCH ×2 (09:10→20:37)
[2022-07-11] MEDS: CLOPIDOGREL 75 MG TAB PO SCH (09:10)
[2022-07-11] MEDS: FUROSEMIDE 40 MG TAB PO SCH (09:10)
[2022-07-11] MEDS: ATORVASTATIN 40 MG TAB PO SCH (09:10)
[2022-07-11] MEDS: atenoloL 25 MG TAB PO SCH (09:10)
--- NOTE | 2022-07-11 14:47 | P.PN ---
Subjective Progress Note Date: 07/11/22 82-year-old male, with a history of CAD, congestive heart failure, and COPD. The patient has history of previous heavy tobacco use. His COPD is moderate in severity, with an FEV1 percent is 72. He comes into the hospital complaining of increasing shortness of breath, nonproductive cough, and dizziness. The patient was recently in inpatient here between June 15 and June 19. He saw my partner, in the office, on June 25. Currently, the patient's resting comfortably in the emergency room, room 3. He is currently on room air. Is not receiving any IV fluids. He is seen in the emergency room. Other than a very harsh cough, he does not appear to be in any respiratory distress. There is no conversational dyspnea or use of accessory muscles. White count 4.1, hemoglobin 13.8, hematocrit 41.1, and platelet count 126,000. Sodium 137, potassium 4.3, chlorides 106, CO2 19, anion gap 12, BUN 15, and creatinine 0.83. Troponins were negative 3. N-terminal proBNP was normal. Testing for influenza A and influenza B was negative. Also, testing for respiratory syncytial virus, and co ronavirus were negative. Urine Legionella antigen was also negative. The chest x-ray show some very mild interstitial changes. The CAT scan showed no evidence of pulmonary embolism. There is some mild interstitial fibrosis and some basilar changes are noted. The patient is seen today 07/11/2022 in follow-up on the regular medical floor. He is currently sitting up in a chair at the bedside. Awake and alert in no acute distress. He is maintaining O2 saturations in the 90s on room air. He's been afebrile. Hemodynamically stable. Blood cultures reveal no growth to date. He is continued on ceftriaxone and azithromycin. Lovenox for DVT prophylaxis. Symbicort and DuoNeb inhalations. Procalcitonin 0.07. Objective - Vital Signs Vital signs: Vital Signs Temp 98.2 F 07/11/22 13:09 Pulse 81 07/11/22 13:09 Resp 18 07/11/22 13:09 BP 134/71 07/11/22 13:09 Pulse Ox 95 07/11/22 13:09 FiO2 21 07/11/22 03:45 Intake & Output 07/10/22 07/11/22 07/11/22 18:59 06:59 18:59 Weight 102.058 kg Other: # Voids 2 - Exam GENERAL EXAM: Alert, pleasant 82-year-old male patient, on room air, comfortable in no apparent distress. HEAD: Normocephalic. EYES: Normal reaction of pupils, equal size. NOSE: Clear with pink turbinates. THROAT: No erythema or exudates. NECK: No masses, no JVD. CHEST: No chest wall deformity. LUNGS: Equal air entry with faint crackles in the posterior bases. CVS: S1 and S2 normal with no audible murmur, regular rhythm. ABDOMEN: No hepatosplenomegaly, normal bowel sounds, no guarding or rigidity. SPINE: No scoliosis or deformity SKIN: No rashes CENTRAL NERVOUS SYSTEM: No focal deficits, tone is normal in all 4 extremities. EXTREMITIES: There is no peripheral edema. No clubbing, no cyanosis. Peripheral pulses are intact. - Labs CBC & Chem 7: 07/10/22 03:47 07/10/22 03:47 Labs: Abnormal Lab Results - Last 24 Hours (Table) 07/09/22 Range/Units 21:43 Mycoplasma pneumon IgG 2.15 H (<=0.90) INDEX Microbiology - Last 24 Hours (Table) 07/09/22 21:05 Blood Culture - Preliminary Blood No Growth after 24 hours 07/09/22 21:20 Blood Culture - Preliminary Blood No Growth after 24 hours Assessment and Plan Assessment: Acute hypoxemic respiratory failure, secondary to COPD exacerbation, possibly complicated by interstitial pneumonia. Procalcitonin 0.07. Ceftriaxone discontinued. Complete azithromycin. Moderate COPD with an FEV1 that's 72% of predicted. Recent admission, for similar symptoms, between June 15 and June 19. History of CHF. History of CAD, with previous bypass grafting, and stent placement. History of hyperlipidemia. History of hypertension. History of sleep apnea syndrome, on home CPAP History of chronic cataracts. History of hiatal hernia. Plan: The patient was seen and evaluated Procalcitonin 0.07 Discontinue ceftriaxone, continue azithromycin Continue Symbicort, DuoNeb inhalations Probable discharge in the a.m. We will continue to follow I have personally seen and examined the patient, performed the documentation and the assessment and plan as written. Number of minutes spent on the visit: 10.
--- NOTE | 2022-07-11 15:35 | P.PN ---
Subjective Progress Note Date: 07/11/22 Patient is a pleasant 82-year-old obese male with history of COPD remote history of smoking came in with complains of shortness of breath cough. Patient felt better after breathing treatments was about to be discharged but was comparing of lightheadedness which presently resolved at this time patient although does have wheezing patient had a CT angios the chest which did not show any pulmonary embolism which did show some chronic findings of pulmonary fibrosis and with the infiltrate in bilateral lower lung chaudhry which was read as pneumonia although patient doesn't have any difficulty pneumonic infiltrate patient doesn't have any fever doesn't have leukocytosis, patient has cough without any sputum production. Broke Level Is Pending. Patient Had COVID-19, Influenza A and B Tests All of Which Are Negative. Patient Was Complaining of Some Fatigue Patient Feels Much Better. 07/11/2022 Patient evaluated today sitting up on edge of bed. Reports shortness of breath has improved. Continues with productive cough. He also reports some dizziness with ambulation although at baseline he is unable to ambulate far without feeling short of breath. He reports sleeping better last night on CPAP. Ort hostatics requested. Lungs are clear today. Afebrile, heart rate 81, blood pressure 134/71, 95%. Review of Systems Constitutional: Denied any fatigue denied any fever. Cardio vascular: denied any chest pain, palpitations Gastrointestinal: denied any nausea, vomiting, diarrhea Pulmonary: Denied any shortness of breath at rest, reports productive cough Neurologic denied any new focal deficits All inpatient medications were reviewed and appropriate changes in these medications as dictated in the interval history and assessment and plan. PHYSICAL EXAMINATION: GENERAL: The patient is alert and oriented x3, not in any acute distress. Obese HEENT: Pupils are round and equally reacting to light. EOMI. No scleral icterus. No conjunctival pallor. Normocephalic, atraumatic. No pharyngeal erythema. No thyromegaly. CARDIOVASCULAR: S1 and S2 present. No murmurs, rubs, or gallops. PULMONARY: Coarse breath sounds no wheezing noted on exam ABDOMEN: Soft, nontender, nondistended, normoactive bowel sounds. No palpable organomegaly. MUSCULOSKELETAL: No joint swelling or deformity. EXTREMITIES: No cyanosis, clubbing, or pedal edema. NEUROLOGICAL: Gross neurological examination did not reveal any focal deficits. SKIN: No rashes. Assessment and plan -Shortness of breath: COPD exacerbation patient may have bronchitis as well patient will be continued on azithromycin -Dizziness, orthostatics will be completed -Acute on chronic hypercapnic respiratory failure secondary to COPD exacerbation -Coronary artery disease -Obstructive sleep apnea -History of diastolic CHF although patient is not in heart failure exacerbation -Obesity -Hyperlipidemia -Depression DVT prophylaxis: Lovenox GI prophylaxis: Protonix Full Code Possible D/C in the next 24 hours The impression and plan of care has been dictated by Karolina Joseph, Nurse Practitioner as directed. Dr. Pia MD I have performed a history and physical examination and medical decision making of this patient, discussed the same with the dictator, and agree with the dictators assessment and plan as written, documented as a scribe. Based on total visit time, I have performed more than 50% of this visit. Objective - Vital Signs Vital signs: Vital Signs Temp 98.2 F 07/11/22 13:09 Pulse 81 07/11/22 13:09 Resp 18 07/11/22 13:09 BP 134/71 07/11/22 13:09 Pulse Ox 95 07/11/22 13:09 FiO2 21 07/11/22 03:45 Intake & Output 07/10/22 07/11/22 07/11/22 18:59 06:59 18:59 Weight 102.058 kg Other: # Voids 2 - Labs CBC & Chem 7: 07/10/22 03:47 07/10/22 03:47 Labs: Abnormal Lab Results - Last 24 Hours (Table) 07/09/22 Range/Units 21:43 Mycoplasma pneumon IgG 2.15 H (<=0.90) INDEX Microbiology - Last 24 Hours (Table) 07/09/22 21:05 Blood Culture - Preliminary Blood No Growth after 24 hours 07/09/22 21:20 Blood Culture - Preliminary Blood No Growth after 24 hours Assessment and Plan Time with Patient: Less than 30
[2022-07-11] MEDS: IPRATROPIUM-ALBUTEROL 3 ML NEB INHALATION PRN (19:23)
[2022-07-11] MEDS: AZITHROMYCIN 500 MG TAB PO SCH (20:37)
[2022-07-11] MEDS: ACETAMINOPHEN TAB 325 MG TAB PO PRN (20:37)
[2022-07-12] MEDS: SYMBICORT 80-4.5 MCG INHALER INHALATION SCH ×2 (08:04→22:05)
[2022-07-12] MEDS: IPRATROPIUM-ALBUTEROL 3 ML NEB INHALATION PRN ×2 (08:04→11:25)
[2022-07-12] MEDS: IPRATROPIUM 0.5 MG/2.5 ML NEBU INHALATION SCH ×4 (08:15→22:06)
[2022-07-12] MEDS: ASPIRIN 81 MG PO SCH (09:28)
[2022-07-12] MEDS: atenoloL 25 MG TAB PO SCH (09:28)
[2022-07-12] MEDS: guaiFENesin 600 MG TABLET.ER PO SCH ×2 (09:29→21:15)
[2022-07-12] MEDS: MONTELUKAST 10 MG TAB PO SCH (09:29)
[2022-07-12] MEDS: PANTOPRAZOLE 40 MG TABLET PO SCH (09:29)
[2022-07-12] MEDS: ATORVASTATIN 40 MG TAB PO SCH (09:29)
[2022-07-12] MEDS: FUROSEMIDE 40 MG TAB PO SCH (09:29)
[2022-07-12] MEDS: CLOPIDOGREL 75 MG TAB PO SCH (09:29)
[2022-07-12] MEDS: EZETIMIBE 10 MG TAB PO SCH (09:29)
[2022-07-12] MEDS: ENOXAPARIN 40 MG/0.4 ML SYRINGE SQ SCH (09:30)
[2022-07-12] MEDS: DULoxetine HCL 60 MG CAPSULE.DR PO SCH (09:49)
[2022-07-12] MEDS: predniSONE 20 MG TAB PO SCH (11:35)
--- NOTE | 2022-07-12 15:23 | P.PN ---
Subjective Progress Note Date: 07/12/22 Principal diagnosis: Shortness of breath. 82-year-old male, with a history of CAD, congestive heart failure, and COPD. The patient has history of previous heavy tobacco use. His COPD is moderate in severity, with an FEV1 percent is 72. He comes into the hospital complaining of increasing shortness of breath, nonproductive cough, and dizziness. The patient was recently in inpatient here between June 15 and June 19. He saw my partner, in the office, on June 25. Currently, the patient's resting comfortably in the emergency room, room 3. He is currently on room air. Is not receiving any IV fluids. He is seen in the emergency room. Other than a very harsh cough, he does not appear to be in any respiratory distress. There is no conversational dyspnea or use of accessory muscles. White count 4.1, hemoglobin 13.8, hematocrit 41.1, and platelet count 126,000. Sodium 137, potassium 4.3, chlorides 106, CO2 19, anion gap 12, BUN 15, and creatinine 0.83. Troponins were negative 3. N-terminal proBNP was normal. Testing for influenza A and influenza B was negative. Also, testing for respiratory syncytial virus, and coronavirus were negative. Urine Legionella antigen was also negative. The chest x-ray show some very mild interstitial changes. The CAT scan showed no evidence of pulmonary embolism. There is some mild interstitial fibrosis and some basilar changes are noted. The patient is seen today 07/11/2022 in follow-up on the regular medical floor. He is currently sitting up in a chair at the bedside. Awake and alert in no acute distress. He is maintaining O2 saturations in the 90s on room air. He's been afebrile. Hemodynamically stable. Blood cultures reveal no growth to date. He is continued on ceftriaxone and azithromycin. Lovenox for DVT prophylaxis. Symbicort and DuoNeb inhalations. Procalcitonin 0.07. Progress note dated 07/12/2022. The patient is resting comfortably. He's on room air. He's not receiving any IV he's feeling about the same. Still coughing quite a bit, and does have shortness of breath. Initially, we did not think he needed corticosteroids, but today, we will add some prednisone. I'm hoping that the patient can be discharged in the next 24-48 hours. He denies any phlegm production. He denies any chest pain. He denies any fever or chills. No new laboratory data to speak of. Objective - Vital Signs Vital signs: Vital Signs Temp 97.5 F L 07/12/22 08:56 Pulse 82 07/12/22 11:36 Resp 17 07/12/22 08:56 BP 130/76 07/12/22 08:56 Pulse Ox 96 07/12/22 12:03 FiO2 21 07/11/22 23:47 Intake & Output 07/11/22 07/12/22 07/12/22 18:59 06:59 18:59 Other: Voiding Method Toilet Toilet Bedside Commode Bedside Commode Urinal Urinal # Voids 3 3 - Exam No acute distress, oriented 3. No audible wheezing, or use of accessory muscles. Currently on room air. HEENT examination is grossly unremarkable. Neck supple. Full range of motion. No adenopathy thyromegaly or neck vein distention. Cardiovascular examination reveals regular rhythm rate. S1-S2 normal. No S3 or S4. No discernible murmur noted. Heart rate 82 bpm. Heart sounds are distant. Lungs reveal scattered rhonchi and expiratory wheezes. Breath sounds equal. There is prolongation on forced maneuver. No crackles. Abdomen soft bowel sounds are heard. No masses or tenderness. Extremities are intact. No cyanosis clubbing or edema. Skin is without rash or lesion. Neurologic examination is brief but nonfocal. - Labs CBC & Chem 7: 07/10/22 03:47 07/10/22 03:47 Labs: Microbiology - Last 24 Hours (Table) 07/09/22 21:05 Blood Culture - Preliminary Blood No Growth after 48 hours 07/09/22 21:20 Blood Culture - Preliminary Blood No Growth after 48 hours Assessment and Plan Assessment: Acute hypoxemic respiratory failure, secondary to COPD exacerbation, possibly complicated by interstitial pneumonia. Moderate COPD with an FEV1 that's 72% of predicted. Recent admission, for similar symptoms, between June 15 and June 19. History of CHF. History of CAD, with previous bypass grafting, and stent placement. History of hyperlipidemia. History of hypertension. History of sleep apnea syndrome, on home CPAP History of chronic cataracts. History of hiatal hernia. Plan: Plan dated 07/10/2022. The patient is seen in the emergency room, room 3. He likely has a COPD exacerbation, which is possibly complicated by tracheobronchitis and/or interstitial pneumonia. The patient does not appear to be particularly ill, as his saturations are excellent on room air. He is also not manifesting any conversational dyspnea, or use of accessory muscles. X-rays, labs, and medications are all reviewed. The patient is currently on Rocephin, and Zithromax. In addition, the patient is receiving updrafts with albuterol sulfate and ipratropium bromide. We discontinued the corticosteroids. The patient is also on Symbicort, 2 puffs twice a day. We will continue to follow and make recommendations along the way. Plan dated 07/12/2022. Today we added prednisone 40 mg a day. He is also on Symbicort, 80/4.5, 2 puffs twice a day, and albuterol sulfate and ipratropium bromide breathing treatments. We will continue to follow and make recommendations along the way. The patient's pro-calcitonin level was very low. Antibiotics were not thought to be beneficial in this patient. We will continue to follow and make recommendations along the way. Time with Patient: Less than 30
[2022-07-12] MEDS ORDERED: SODIUM CHLORIDE 0.9% 1,000 ML IV SCH (18:15)
[2022-07-12] MEDS ORDERED: DEXTROSE 50% SYRINGE 50 ML IVP PRN ×2 (22:49)
--- NOTE | 2022-07-12 22:55 | P.PN ---
Subjective Progress Note Date: 07/12/22 Patient is a pleasant 82-year-old obese male with history of COPD remote history of smoking came in with complains of shortness of breath cough. Patient felt better after breathing treatments was about to be discharged but was comparing of lightheadedness which presently resolved at this time patient although does have wheezing patient had a CT angios the chest which did not show any pulmonary embolism which did show some chronic findings of pulmonary fibrosis and with the infiltrate in bilateral lower lung chaudhry which was read as pneumonia although patient doesn't have any difficulty pneumonic infiltrate patient doesn't have any fever doesn't have leukocytosis, patient has cough without any sputum production. Broke Level Is Pending. Patient Had COVID-19, Influenza A and B Tests All of Which Are Negative. Patient Was Complaining of Some Fatigue Patient Feels Much Better. 07/11/2022 Patient evaluated today sitting up on edge of bed. Reports shortness of breath has improved. Continues with productive cough. He also reports some dizziness with ambulation although at baseline he is unable to ambulate far without feeling short of breath. He reports sleeping better last night on CPAP. Ort hostatics requested. Lungs are clear today. Afebrile, heart rate 81, blood pressure 134/71, 95%. 07/12/2022 Overall patient feeling better states his cough has improved. He does have increased wheezing on exam today. Pulmonary team has started patient on oral steroids. He continues to complaints of lightheadedness, and some dizziness at rest and more so with activity. Orthostatics were completed with systolic blood pressure when standing 137, when sitting 110s. Atenolol was decreased. Patient will also by hydrated with normal saline at 50 mls per hour over 6 hours. Repeat orthos tomorrow. Hold lasix for now. Remains afebrile, heart rate 84, blood pressure 132/75. Review of Systems Constitutional: Denied any fatigue denied any fever. Reports dizziness Cardio vascular: denied any chest pain, palpitations Gastrointestinal: denied any nausea, vomiting, diarrhea Pulmonary: Denied any shortness of breath at rest, improving cough Neurologic denied any new focal deficits All inpatient medications were reviewed and appropriate changes in these medications as dictated in the interval history and assessment and plan. PHYSICAL EXAMINATION: GENERAL: The patient is alert and oriented x3, not in any acute distress. Obese HEENT: Pupils are round and equally reacting to light. EOMI. No scleral icterus. No conjunctival pallor. Normocephalic, atraumatic. No pharyngeal erythema. No thyromegaly. CARDIOVASCULAR: S1 and S2 present. No murmurs, rubs, or gallops. PULMONARY: Coarse breath sounds expiratory wheezing scattered posteriorly ABDOMEN: Soft, nontender, nondistended, normoactive bowel sounds. No palpable organomegaly. MUSCULOSKELETAL: No joint swelling or deformity. EXTREMITIES: No cyanosis, clubbing, or pedal edema. NEUROLOGICAL: Gross neurological examination did not reveal any focal deficits. SKIN: No rashes. Assessment and plan -Shortness of breath: COPD exacerbation, procalcitonin negative patient will be monitored off antibiotics, continues on bronchodilators, PO steroids -Lightheadedness, positive orthostatics, atenolol decreased and patient will be gently hydrated. Repeat orthostatics tomorrow. -Acute on chronic hypercapnic respiratory failure secondary to COPD exacerbation -Coronary artery disease -Obstructive sleep apnea -History of diastolic CHF although patient is not in heart failure exacerbation -Obesity -Hyperlipidemia -Depression DVT prophylaxis: Lovenox GI prophylaxis: Protonix Full Code Possible D/C in the next 24 hours The impression and plan of care has been dictated by Karolina Joseph Nurse Practitioner as directed. Dr. Pia MD I have performed a history and physical examination and medical decision making of this patient, discussed the same with the dictator, and agree with the dictators assessment and plan as written, documented as a scribe. Based on total visit time, I have performed more than 50% of this visit. Objective - Vital Signs Vital signs: Vital Signs Temp 98.1 F 07/12/22 20:00 Pulse 84 07/12/22 20:00 Resp 17 07/12/22 20:00 BP 132/75 07/12/22 20:00 Pulse Ox 93 L 07/12/22 20:00 FiO2 21 07/11/22 23:47 Intake & Output 07/12/22 07/12/22 07/13/22 06:59 18:59 06:59 Other: Voiding Method Toilet Toilet Bedside Commode Bedside Commode Urinal Urinal # Voids 3 - Labs CBC & Chem 7: 07/10/22 03:47 07/10/22 03:47 Labs: Microbiology - Last 24 Hours (Table) 07/09/22 21:05 Blood Culture - Preliminary Blood No Growth after 48 hours 07/09/22 21:20 Blood Culture - Preliminary Blood No Growth after 48 hours Assessment and Plan Time with Patient: Less than 30
[2022-07-13] MEDS: ACETAMINOPHEN TAB 325 MG TAB PO PRN
[2022-07-13] MEDS: IPRATROPIUM 0.5 MG/2.5 ML NEBU INHALATION SCH ×2 (08:09→12:05)
[2022-07-13] MEDS: SYMBICORT 80-4.5 MCG INHALER INHALATION SCH (08:09)
[2022-07-13 08:10] VITALS: RESP 18; TEMP 97.7
[2022-07-13] MEDS: DULoxetine HCL 60 MG CAPSULE.DR PO SCH (08:21)
[2022-07-13] MEDS: ASPIRIN 81 MG PO SCH (08:21)
[2022-07-13] MEDS: guaiFENesin 600 MG TABLET.ER PO SCH (08:21)
[2022-07-13] MEDS: PANTOPRAZOLE 40 MG TABLET PO SCH (08:21)
[2022-07-13] MEDS: ENOXAPARIN 40 MG/0.4 ML SYRINGE SQ SCH (08:21)
[2022-07-13] MEDS: CLOPIDOGREL 75 MG TAB PO SCH (08:21)
[2022-07-13] MEDS: predniSONE 20 MG TAB PO SCH (08:22)
[2022-07-13] MEDS: EZETIMIBE 10 MG TAB PO SCH (08:22)
[2022-07-13] MEDS: MONTELUKAST 10 MG TAB PO SCH (08:22)
[2022-07-13] MEDS: ATORVASTATIN 40 MG TAB PO SCH (08:22)
[2022-07-13 08:25] LABS: Glucose,Whole Blood 158 mg/dL (70-110)
[2022-07-13] MEDS: INSULIN ASPART (NovoLOG) 100 UNIT/ML VIAL SQ SCH ×2 (08:29→12:17)
[2022-07-13 10:48] LABS: African American GFR (CKD) 83.4 (60.0-200.0); Anion Gap 11.3 mmol/L (10.00-18.00); BUN/Creat Ratio 18.04 Ratio (12.00-20.00); Blood Urea Nitrogen 17.7 mg/dL (9.0-27.0); Calcium 8.9 mg/dL (8.7-10.3); Carbon Dioxide 27.1 mmol/L (20.0-27.5); Non-African American GFR(CKD) 71.9 (60.0-200.0); Potassium 4.2 mmol/L (3.5-5.5)
[2022-07-13 11:28] LABS: Glucose,Whole Blood 170 mg/dL (70-110)
[2022-07-13 11:38] VITALS: BP 114/73
[2022-07-13 12:07] VITALS: PULSE 76
--- NOTE | 2022-07-13 14:52 | P.PN ---
Subjective Progress Note Date: 07/13/22 82-year-old male, with a history of CAD, congestive heart failure, and COPD. The patient has history of previous heavy tobacco use. His COPD is moderate in severity, with an FEV1 percent is 72. He comes into the hospital complaining of increasing shortness of breath, nonproductive cough, and dizziness. The patient was recently in inpatient here between June 15 and June 19. He saw my partner, in the office, on June 25. Currently, the patient's resting comfortably in the emergency room, room 3. He is currently on room air. Is not receiving any IV fluids. He is seen in the emergency room. Other than a very harsh cough, he does not appear to be in any respiratory distress. There is no conversational dyspnea or use of accessory muscles. White count 4.1, hemoglobin 13.8, hematocrit 41.1, and platelet count 126,000. Sodium 137, potassium 4.3, chlorides 106, CO2 19, anion gap 12, BUN 15, and creatinine 0.83. Troponins were negative 3. N-terminal proBNP was normal. Testing for influenza A and influenza B was negative. Also, testing for respiratory syncytial virus, and co ronavirus were negative. Urine Legionella antigen was also negative. The chest x-ray show some very mild interstitial changes. The CAT scan showed no evidence of pulmonary embolism. There is some mild interstitial fibrosis and some basilar changes are noted. The patient is seen today 07/11/2022 in follow-up on the regular medical floor. He is currently sitting up in a chair at the bedside. Awake and alert in no acute distress. He is maintaining O2 saturations in the 90s on room air. He's been afebrile. Hemodynamically stable. Blood cultures reveal no growth to date. He is continued on ceftriaxone and azithromycin. Lovenox for DVT prophylaxis. Symbicort and DuoNeb inhalations. Procalcitonin 0.07. The patient is seen today 07/13/2022 in follow-up on the regular medical floor. He is currently sitting up in a chair at the bedside. Awake and alert in no acute distress. Maintaining O2 saturations in the 90s on room air. No IV fluids. Blood cultures reveal no growth. Blood glucose 170. He is continued on DuoNeb inhalations, Symbicort, Singulair, prednisone taper. Lovenox for DVT prophylaxis. Objective - Vital Signs Vital signs: Vital Signs Temp 97.7 F 07/13/22 08:00 Pulse 76 07/13/22 12:18 Resp 18 07/13/22 08:00 BP 114/73 07/13/22 11:38 Pulse Ox 95 07/13/22 08:00 FiO2 21 07/13/22 04:17 Intake & Output 07/12/22 07/13/22 07/13/22 18:59 06:59 18:59 Other: Voiding Method Toilet Toilet Toilet Bedside Commode Bedside Commode Bedside Commode Urinal Urinal Urinal # Voids 3 - Exam GENERAL EXAM: Alert, 82-year-old male patient, on room air, up in a chair at the bedside, comfortable in no apparent distress. HEAD: Normocephalic. EYES: Normal reaction of pupils, equal size. NOSE: Clear with pink turbinates. THROAT: No erythema or exudates. NECK: No masses, no JVD. CHEST: No chest wall deformity. LUNGS: Equal air entry with faint crackles in the posterior bases. CVS: S1 and S2 normal with no audible murmur, regular rhythm. ABDOMEN: No hepatosplenomegaly, normal bowel sounds, no guarding or rigidity. SPINE: No scoliosis or deformity SKIN: No rashes CENTRAL NERVOUS SYSTEM: No focal deficits, tone is normal in all 4 extremities. EXTREMITIES: There is no peripheral edema. No clubbing, no cyanosis. Lillian pheral pulses are intact. - Labs CBC & Chem 7: 07/10/22 03:47 07/13/22 07:43 Labs: Abnormal Lab Results - Last 24 Hours (Table) 07/13/22 07/13/22 07/13/22 Range/Units 07:43 07:43 08:23 Glucose 128 H (70-110) mg/dL POC Glucose (mg/dL) 158 H (70-110) mg/dL Hemoglobin A1c 8.0 H (0.0-6.0) % 07/13/22 Range/Units 11:27 Glucose (70-110) mg/dL POC Glucose (mg/dL) 170 H (70-110) mg/dL Hemoglobin A1c (0.0-6.0) % Microbiology - Last 24 Hours (Table) 07/09/22 21:05 Blood Culture - Preliminary Blood No Growth after 72 hours 07/09/22 21:20 Blood Culture - Preliminary Blood No Growth after 72 hours Assessment and Plan Assessment: Acute hypoxemic respiratory failure, secondary to COPD exacerbation, possibly complicated by interstitial pneumonia. Procalcitonin 0.07. Ceftriaxone discontinued. Complete azithromycin. Moderate COPD with an FEV1 that's 72% of predicted. Recent admission, for similar symptoms, between June 15 and June 19. History of CHF. History of CAD, with previous bypass grafting, and stent placement. History of hyperlipidemia. History of hypertension. History of sleep apnea syndrome, on home CPAP History of chronic cataracts. History of hiatal hernia. Plan: The patient was seen and evaluated Labs and medications reviewed Continue Symbicort, DuoNeb inhalations, prednisone taper Cleared for discharge from the pulmonary standpoint Follow-up in the office in 1 week I have personally seen and examined the patient, performed the documentation and the assessment and plan as written. Number of minutes spent on the visit: 10.
[2022-07-14] MEDS ORDERED: FUROSEMIDE 20 MG TAB PO SCH (09:00)
--- NOTE | 2022-07-14 23:14 | P.DS ---
Providers Date of admission: 07/09/22 23:23 Attending physician: Mey Alaniz Consults: 07/09/22 23:43 Consult Physician Urgent Consulting Provider: Krys Abrams Reason/Comments: COPD exacerbation, pneumonia Do you want consulting provider notified?: Yes, Notify in am Primary care physician: Doretha Rose [facility] Course: Final Diagnosis -Shortness of breath: COPD exacerbation, procalcitonin negative patient will be monitored off antibiotics, continues on bronchodilators, PO steroids -Lightheadedness, positive orthostatics, atenolol decreased and patient will be gently hydrated. Repeat orthostatics tomorrow. -Acute on chronic hypercapnic respiratory failure secondary to COPD exacerbation -Recent hospital stay for possible TIA secondary to diploplia. -Coronary artery disease status post CABG as well as stents -Obstructive sleep apnea with CPAP use -History of diastolic CHF although patient is not in heart failure exacerbation -Obesity -Hyperlipidemia -Hypertension currently normotensive -Depression Full Code Discharge Disposition Patient is discharged home in stable condition with overall guarded prognosis. He will continue on oral steroid taper. Patients lasix dose will be decreased to 20 mg daily and is instructed to take an extra lasix dose if he experiences peripheral edema. Atenolol has been discontinued at this time, blood pressure has been running on the low normal side with systolic pressure in the 110s. He does complain of some intermittent dizziness which has improved currently. Recommend to see his own fishing rod assembler on discharge. He has follow up appointme nts scheduled with Dr. Abrams and also with Dr. Rose his primary care provider on July 17. He is recommend to follow up with neurology on discharge. He was previously admitted to the hospital for possible TIA and has not followed up with neurology as of yet. -Hemoglobin A1C 8.0 need to follow up with primary care for further monitoring of blood glucose and recommendations. A1C was found to be 7.0 previous hospital stay, patient has been maintained on steroids for COPD. Attempted to set up sleep study unable to make appointment: [phone] Hospital Course Patient is a pleasant 82-year-old obese male with history of COPD remote history of smoking came in with complains of shortness of breath cough. He follows with Dr. Doretha Rose in the primary care office. Additional medical history includes coronary artery disease status post CABG and stents in the past, chronic hypercapnic respiratory failure, obstructive sleep apnea uses cpap machine, diastolic chf, hyperlipidemia, hypertension, depression. He was recently evaluated in this hospital earlier this month for complaints of intermittent episode of diploplia and was thought to possibly have TIA. Neurology evaluated patient at that time current recommending to see neurology outpatient. Patient felt better after breathing treatments was about to be discharged but was comparing of lightheadedness which presently resolved at this time patient although does have wheezing patient had a CT angios the chest which did not show any pulmonary embolism which did show some chronic findings of pulmonary fibrosis and with the infiltrate in bilateral lower lung chaudhry which was read as pneumonia although patient doesn't have any difficulty pneumonic infiltrate patient doesn't have any fever doesn't have leukocytosis, patient has cough without any sputum production. Procalcitonin level was negative and recommended no further antibiotics on discharge. Patient Had COVID-19, Influenza A and B Tests All of Which Are Negative. Patient Was Complaining of Some Fatigue. He did have positive orthostatic blood pressures and patient was gently hydrated and currently recommending to hold antenolol. He was evaluated by rebecca collins this admission and was started on oral steroids and will be discharged on oral steroid taper. His dizziness improved after being hydrated. Recommend to decrease lasix dosing to 20mg daily on discharge. HgbA1c came back at 8.0 and will recommend patient be started on jardiance for glycemic control. 07/13/2022 Patient is evaluated today sitting up in chair. He reports no acute events overn ight. He has been using his CPAP and sleeping well. He was recommended for sleep study on discharge unable to make appointment for him at this time. He is denying chest pain, denying shortness of breath. Current orthostatics are negative. His lung sounds have improved. No wheezing noted. S1 S2 auscultated. Alert and oriented x3 focal neurological exam is negative. Patient is afebrile, heart rate 76, blood pressure 115/58, and oxygenation 95% on room air. Patient will be discharged home today. Please see medication reconciliation for a list of current medication. Thank you for allowing us to participate in the care of this patient. The impression and plan of care has been dictated by Karolina Joseph, Nurse Practitioner as directed. Dr. Pia MD I have performed a history and physical examination and medical decision making of this patient, discussed the same with the dictator, and agree with the dictators assessment and plan as written, documented as a scribe. Based on total visit time, I have performed more than 50% of this visit. Patient Condition at Discharge: Stable Plan - Discharge Summary New Discharge Prescriptions: New guaiFENesin [Mucinex] 600 mg PO Q12HR 7 Days #14 tab predniSONE 0 mg PO DIRECTED 12 Days #30 tab Furosemide [Lasix] 20 mg PO DAILY #30 tab Continue Ezetimibe [Zetia] 10 mg PO DAILY clonazePAM [KlonoPIN] 0.5 mg PO DAILY PRN PRN Reason: Anxiety Nitroglycerin Sl Tabs [Nitrostat] 0.4 mg SL Q5M PRN PRN Reason: Chest Pain Clopidogrel [Plavix] 75 mg PO DAILY Montelukast Sodium [Singulair] 10 mg PO DAILY DULoxetine HCL [Cymbalta] 60 mg PO DAILY Fluticasone/Umeclidin/Vilanter [Trelegy Ellipta 100-62.5-25] 1 puff INHALATION RT-DAILY Pantoprazole [Protonix] 40 mg PO DAILY #15 tab Aspirin 81 mg PO DAILY #30 tab predniSONE 5 mg PO DAILY Ipratropium-Albuterol Nebulize [Duoneb 0.5 mg-3 mg/3 ml Soln] 3 ml INHALATION RT-QID PRN PRN Reason: Shortness Of Breath Atorvastatin [Lipitor] 40 mg PO DAILY #30 tab Discontinued atenoloL [Tenormin] 25 mg PO DAILY Furosemide [Lasix] 40 mg PO DAILY #30 tab Discharge Medication List Ezetimibe [Zetia] 10 mg PO DAILY 02/13/16 [History] Nitroglycerin Sl Tabs [Nitrostat] 0.4 mg SL Q5M PRN 06/22/16 [History] clonazePAM [KlonoPIN] 0.5 mg PO DAILY PRN 06/22/16 [History] Clopidogrel [Plavix] 75 mg PO DAILY 10/20/19 [History] Montelukast Sodium [Singulair] 10 mg PO DAILY 06/22/20 [History] DULoxetine HCL [Cymbalta] 60 mg PO DAILY 07/19/21 [History] Fluticasone/Umeclidin/Vilanter [Trelegy Ellipta 100-62.5-25] 1 puff INHALATION RT-DAILY 03/06/22 [History] Ipratropium-Albuterol Nebulize [Duoneb 0.5 mg-3 mg/3 ml Soln] 3 ml INHALATION RT-QID PRN 03/06/22 [History] predniSONE 5 mg PO DAILY 03/06/22 [History] Pantoprazole [Protonix] 40 mg PO DAILY #15 tab 03/08/22 [Rx] Aspirin 81 mg PO DAILY #30 tab 06/19/22 [Rx] Atorvastatin [Lipitor] 40 mg PO DAILY #30 tab 06/19/22 [Rx] Furosemide [Lasix] 20 mg PO DAILY #30 tab 07/13/22 [Rx] guaiFENesin [Mucinex] 600 mg PO Q12HR 7 Days #14 tab 07/13/22 [Rx] predniSONE 0 mg PO DIRECTED 12 Days #30 tab 07/13/22 [Rx] Follow up Appointment(s)/Referral(s): Krys Abrams MD [STAFF PHYSICIAN] - 07/17/22 9:30 am Doretha Rose MD [Primary Care Provider] - 07/17/22 4:00 pm Kory Stanford MD [REFERRING] - 1 Week (will give a call to schedule appointment no later than saturday.) Ambulatory/Diagnostic Orders: Basic Metabolic Panel [LAB.AMB] Location: None Selected Patient Instructions/Handouts: COPD (Chronic Obstructive Pulmonary Disease) (DC) Activity/Diet/Wound Care/Special Instructions: Set up sleep study before discharge: [phone] Office not available please call for appointment. Patient will need to see Dr Abrams on discharge, appointment has been made Follow up with cardiology, Patient follows with a fishing rod assembler out of [place]. Decrease lasix to 20 mg po daily, if you experience lower extremity swelling take an extra tablet and also notify your provider Atenolol has been discontinued for now, blood pressure currently with in normal limits. Patient has been experiencing intermittent episodes of dizziness. Had recent neurology work up recommending to follow up outpatient with neurology. Complete oral steroid taper and resume home dose of oral steroids Discharge Disposition: HOME SELF-CARE
[2022-07-20 15:21] LABS: S.pneumoniae Serotype 1 (1) 32.2 mcg/mL (>=2.3); S.pneumoniae Serotype 10A (34) 1.9 mcg/mL (>=2.9); S.pneumoniae Serotype 12F (12) 1.5 mcg/mL (>=0.6); S.pneumoniae Serotype 14 (14) 10.3 mcg/mL (>=7.0); S.pneumoniae Serotype 15B (54) 5.8 mcg/mL (>=3.3); S.pneumoniae Serotype 18C (56) 0.6 mcg/mL (>=3.3); S.pneumoniae Serotype 19A (57) 17.9 mcg/mL (>=17.1); S.pneumoniae Serotype 19F (19) 13.2 mcg/mL (>=15.0); S.pneumoniae Serotype 22F (22) 20.1 mcg/mL (>=7.2); S.pneumoniae Serotype 3 (3) 1.5 mcg/mL (>=1.8); S.pneumoniae Serotype 4 (4) 0.9 mcg/mL (>=0.6); S.pneumoniae Serotype 5 (5) 3.9 mcg/mL (>=10.7); S.pneumoniae Serotype 6B (26) 5.8 mcg/mL (>=4.7); S.pneumoniae Serotype 7F (51) 12.2 mcg/mL (>=3.2); S.pneumoniae Serotype 8 (8) 5.2 mcg/mL (>=2.9)
--- NOTE | 2022-07-26 14:51 | CDI ---
Documentation Clarification Form Date: 07/26/2022 02:23:46 PM From: Marleny Perry Phone: Admit Date: 07/09/2022 11:23:00 PM Patient Name: Demetrio Cordero V Visit Number: [id number] Discharge Date: 07/13/2022 03:02:00 PM ATTENTION: The Clinical Documentation Specialists (CDI) and [facility] Coding Staff appreciate your assistance in clarifying documentation. Please respond to the clarification below the line at the bottom and electronically sign. The CDI & [facility] Coding staff will review the response and follow-up if needed. Please note: Queries are made part of the Legal Health Record. If you have any questions, please contact the author of this message via ITS. Dr. Sandy Palacio Conflicting documentation has been found in the medical record. As attending physician, please provide clarification. Patient does not appear to be in any significant distress at the time I'm assessing him. ED Note and Consult 07/10/22 Acute on chronic respiratory failure per H&P and Progress Notes. History/Risk Factors: 82yo M, AECOPD, ACH/HRFCAD, HELEN, CDCHF, obesity, HLD, Depression, Hx smoker Clinical Indicators: Vital signs: 07/09/22 18:14 98.2 F 83 20 170/75 97 07/10/22 04:03 102 H 18 124/73 96 Pulse oximetry: O2 Sat by Pulse 97 96 per ED Note; Pulse oximetry is 97% on room air. Pulse Ox 93 L 07/12/22 20:00 07/11/22 23:47 Treatment: Breathing Tx: azithromycin, treat with antibiotics and breathing treatments. Corticosteroids. O2: maintaining O2 saturations in the 90s on room air. 07/11 Progress Note - He reports sleeping better last night on CPAP. Is there an additional diagnosis that is clinically appropriate for this patient? [ ] Acute on Chronic Respiratory Failure, hypercapnia and hypoxia [ ] Chronic Respiratory Failure, hypercapnia and hypoxia [ ] Other Diagnosis, please specify [ ] Unable to determine (Template Last Revised: November 2020) No resp failure MTDD
== END 2022-07-13 15:02 | disposition home or self-care (01) | DRG 191 ==
LOC: EC 18:02 → 4SSUR 23:23
PROVIDERS: ADMIT Hospitalist; ATTEND Hospitalist
DX: J44.1 Chronic obstructive pulmonary disease with (acute) exacerbation (principal); I50.32 Chronic diastolic (congestive) heart failure; J84.9 Interstitial pulmonary disease, unspecified; J44.0 Chronic obstructive pulmonary disease with (acute) lower respiratory infection; I11.0 Hypertensive heart disease with heart failure; E66.9 Obesity, unspecified; F32.A Depression, unspecified; Z68.34 Body mass index [BMI] 34.0-34.9, adult; J84.10 Pulmonary fibrosis, unspecified; E78.5 Hyperlipidemia, unspecified; I25.10 Atherosclerotic heart disease of native coronary artery without angina pectoris; G47.33 Obstructive sleep apnea (adult) (pediatric); R79.1 Abnormal coagulation profile; Z20.822 Contact with and (suspected) exposure to COVID-19; Z28.310 Unvaccinated for COVID-19; Z95.1 Presence of aortocoronary bypass graft; Z95.5 Presence of coronary angioplasty implant and graft; Z79.899 Other long term (current) drug therapy; Z79.02 Long term (current) use of antithrombotics/antiplatelets; Z79.51 Long term (current) use of inhaled steroids; Z79.82 Long term (current) use of aspirin; Z87.891 Personal history of nicotine dependence; Z86.73 Personal history of transient ischemic attack (TIA), and cerebral infarction without residual deficits
CPT/HCPCS: 36415; 71046; 71275; 80048; 80053; 83036; 83605; 83880; 84145; 84484; 85025; 85379; 85610; 85730; 86317; 86738; 87040; 87449; 87636; 93005; 94640; 94660; 94760; 96361; 96365; 96375; 99285

== ENCOUNTER 2022-08-28 14:41 | Emergency (ER) | payer MEDICARE ==
[2022-08-28 14:58] VITALS: TEMP 98
[2022-08-28] MEDS ORDERED: HYDROmorphone 1 MG/ML 1 ML SYRINGE IM STA (15:38)
[2022-08-28] MEDS ORDERED: KETOROLAC 15 MG/ML 1 ML VIAL IM STA (15:38)
--- NOTE | 2022-08-28 16:05 | ED ---
General Adult HPI - General Chief complaint: Extremity Problem,Nontraumatic Stated complaint: Pain Time Seen by Provider: 08/28/22 15:24 Source: patient, RN notes reviewed Mode of arrival: EMS Limitations: no limitations - History of Present Illness Initial comments: Patient is a pleasant 82-year-old male presenting to the emergency department with concerns with discomfort of his left posterior hip region. Onset of symptoms was just today. Patient noticed when he got up out of bed. Patient states symptoms significantly increased with walking. Patient is only able to walk 5 or 10 feet before the discomfort makes him stop. No weakness. No loss of control of bowel or bladder. No loss of sensation. No history of similar symptoms previously. - Related Data Home Medications Medication Instructions Recorded Confirmed Ezetimibe [Zetia] 10 mg PO DAILY 02/13/16 07/09/22 Nitroglycerin Sl Tabs [Nitrostat] 0.4 mg SL Q5M PRN 06/22/16 07/09/22 clonazePAM [KlonoPIN] 0.5 mg PO DAILY PRN 06/22/16 07/09/22 Clopidogrel [Plavix] 75 mg PO DAILY 10/20/19 07/09/22 Montelukast Sodium [Singulair] 10 mg PO DAILY 06/22/20 07/09/22 DULoxetine HCL [Cymbalta] 60 mg PO DAILY 07/19/21 07/09/22 Fluticasone/Umeclidin/Vilanter 1 puff INHALATION RT-DAILY 03/06/22 07/09/22 [Trelegy Ellipta 100-62.5-25] Ipratropium-Albuterol Nebulize 3 ml INHALATION RT-QID PRN 03/06/22 07/09/22 [Duoneb 0.5 mg-3 mg/3 ml Soln] predniSONE 5 mg PO DAILY 03/06/22 07/09/22 Previous Rx's Medication Instructions Recorded Pantoprazole [Protonix] 40 mg PO DAILY #15 tab 03/08/22 Aspirin 81 mg PO DAILY #30 tab 06/19/22 Atorvastatin [Lipitor] 40 mg PO DAILY #30 tab 06/19/22 Furosemide [Lasix] 20 mg PO DAILY #30 tab 07/13/22 guaiFENesin [Mucinex] 600 mg PO Q12HR 7 Days #14 tab 07/13/22 predniSONE 0 mg PO DIRECTED 12 Days #30 tab 07/13/22 Cyclobenzaprine [Flexeril] 10 mg PO TID PRN #12 tablet 08/28/22 methylPREDNISolone Dose Pack 4 mg PO DIRECTED #21 tab 08/28/22 [Medrol Dose Pack] Allergies Allergy/AdvReac Type Severity Reaction Status Date / Time No Known Allergies Allergy Verified 07/09/22 22:24 Review of Systems ROS Statement: Those systems with pertinent positive or pertinent negative responses have been documented in the HPI. ROS Other: All systems not noted in ROS Statement are negative. Constitutional: Denies: fever Eyes: Denies: eye pain ENT: Denies: ear pain Respiratory: Denies: cough Cardiovascular: Denies: chest pain Endocrine: Denies: fatigue Gastrointestinal: Denies: abdominal pain Genitourinary: Denies: dysuria Musculoskeletal: Reports: as per HPI Skin: Denies: rash Neurological: Denies: weakness Past Medical History Past Medical History: Coronary Artery Disease (CAD), Heart Failure, COPD, Hyperlipidemia, Sleep Apnea/CPAP/BIPAP Additional Past Medical History / Comment(s): COPD, obesity, coronary artery disease with previous bypass surgery, cataracts, hiatal hernia, obstructive sleep apnea with CPAP therapy. 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 Mother Family Medical History: CVA/TIA Additional Family Medical History / Comment(s): at age 99 3/4 from a stoke General Exam Limitations: no limitations General appearance: alert, in no apparent distress Head exam: Present: normocephalic Eye exam: Present: normal appearance Neck exam: Present: normal inspection. Absent: tenderness, meningismus Respiratory exam: Present: normal lung sounds bilaterally Cardiovascular Exam: Present: regular rate, normal rhythm Expanded Peripheral pulses: 2+: Posterior Tibialis (R), Posterior Tibialis (L) GI/Abdominal exam: Present: soft. Absent: tenderness Extremities exam: Present: normal inspection. Absent: tenderness, pedal edema, calf tenderness Back exam: Present: tenderness (Mild tenderness left sciatic region) Neurological exam: Present: alert. Absent: motor sensory deficit Expanded Sensory exam: Lower Extremity Light Touch: Normal Motor strength exam: RUE: 5, LUE: 5, RLE: 5, LLE: 5 Psychiatric exam: Present: normal affect, normal mood Skin exam: Present: normal color Course Vital Signs 08/28/22 14:52 Temperature 98 F Pulse Rate 90 Respiratory 20 Rate Blood Pressure 123/63 O2 Sat by Pulse 95 Oximetry Medical Decision Making - Medical Decision Making Patient reevaluated and does feel improved following medication. Patient and family updated. - Radiology Data Interpreted by me: Sacral x-ray as well as left hip and pelvis x-ray did not reveal acute traumatic injury. Disposition Clinical Impression: Sciatica Disposition: HOME SELF-CARE Condition: Stable Instructions (If sedation given, give patient instructions): Sciatica (ED) Additional Instructions: Please do follow-up with primary care physician in the next day or 2 for recheck. If symptoms continue consider pain management for injections. Prescriptions have been sent to pharmacy. Return for increased pain, weakness, loss of control of bowel or bladder, worsening symptoms or any other concerns. Prescriptions: Cyclobenzaprine [Flexeril] 10 mg PO TID PRN #12 tablet PRN Reason: Pain methylPREDNISolone Dose Pack [Medrol Dose Pack] 4 mg PO DIRECTED #21 tab Is patient prescribed a controlled substance at d/c from ED?: No Referrals: Doretha Rose MD [Primary Care Provider] - 1-2 days Time of Disposition: 17:03
--- NOTE | 2022-08-28 16:08 | XR ---
EXAMINATION TYPE: XR Hip LT and AP Pelvis DATE OF EXAM: 08/28/2022 COMPARISON: CT abdomen and pelvis March 07, [address] 2018. HISTORY: Pain. TECHNIQUE: A single AP view of the pelvis is obtained. Two views of the left hip are obtained. FINDINGS: There is no acute fracture/dislocation evident in the pelvis . The sacroiliac joints appe ar to show some narrowing and sclerosis bilaterally. Pubic symphysis is intact. Scattered Pelvic phl eboliths are seen. Overlying vascular calcification is present. Right hip joint shows mild axial join t space loss and acetabular spurring. Two views of left hip show no acute fracture or dislocation. Metallic prosthesis is satisfactory in p osition. Lucency in the acetabulum is unchanged from 2018 CT. Moderate left groin vascular calcificat ion is present. IMPRESSION: As above.
--- NOTE | 2022-08-28 16:10 | XR ---
EXAMINATION TYPE: XR sacrum coccyx DATE OF EXAM: 08/28/2022 COMPARISON: CT abdomen and pelvis March 07, 2022 HISTORY: Sacral and coccygeal pain. TECHNIQUE: 2 views of sacrum and prosthetics. FINDINGS: Sacral alar are maintained bilaterally. No acute displaced fracture. Overlying vascular francis cification and phleboliths are seen. IMPRESSION: As above.
[2022-08-28] MEDS ORDERED: ACET/COD 300 MG/30 MG STARTER PACK 6 TAB BTL PO STA (17:01)
[2022-08-28 17:26] VITALS: BP 129/67; PULSE 74; RESP 18
== END 2022-08-28 17:26 | disposition home or self-care (01) ==
LOC: EC 14:41
DX: M54.32 Sciatica, left side (principal); I25.10 Atherosclerotic heart disease of native coronary artery without angina pectoris; I50.9 Heart failure, unspecified; J44.9 Chronic obstructive pulmonary disease, unspecified; F41.9 Anxiety disorder, unspecified; F32.A Depression, unspecified; Z87.891 Personal history of nicotine dependence; Z79.899 Other long term (current) drug therapy
CPT/HCPCS: 72220; 73502; 99283; 96372 ×2; J1170; J1885

== ENCOUNTER 2022-09-12 12:28 | Observation (INO) | payer MEDICARE ==
[2022-09-12] MEDS ORDERED: ACETAMINOPHEN TAB 500 MG TAB PO STA (12:36)
[2022-09-12 13:31] LABS: ALT 30 U/L (4-49); AST 26 U/L (17-59); African American GFR (CKD) >90 (>60 ml/min/1.73 sqM); Albumin 3.7 g/dL (3.5-5.0); Alkaline Phosphatase 109 U/L (38-126); Anion Gap 8 mmol/L; Blood Urea Nitrogen 19 mg/dL (9-20); Calcium 8.7 mg/dL (8.4-10.2); Carbon Dioxide 21 mmol/L (22-30); Chloride 108 mmol/L (98-107); Glucose 195 mg/dL (74-99); Non-African American GFR(CKD) 85 (>60 ml/min/1.73 sqM); Sodium 137 mmol/L (137-145); Total Bilirubin 0.5 mg/dL (0.2-1.3)
[2022-09-12 13:35] LABS: INR 0.9 (<1.2); Partial Thromboplastin Time 22.4 sec (22.0-30.0); Prothrombin Time 9.8 sec (9.0-12.0)
[2022-09-12 13:48] LABS: Basophils # (A) 0.1 k/uL (0-0.2); Basophils % (A) 1 %; Eosinophils # (A) 0.1 k/uL (0-0.7); Eosinophils % (A) 2 %; HCT 40.7 % (39.0-53.0); HGB 14.4 gm/dL (13.0-17.5); Lymphocytes # (A) 1.2 k/uL (1.0-4.8); Lymphocytes % (A) 16 %; MCH 32.6 pg (25.0-35.0); MCHC 35.3 g/dL (31.0-37.0); MCV 92.4 fL (80.0-100.0); Monocytes # (A) 0.4 k/uL (0-1.0); Monocytes % (A) 6 %; Neutrophils # (A) 5.3 k/uL (1.3-7.7); Neutrophils % (A) 73 %; Platelet Count 126 k/uL (150-450); RBC 4.41 m/uL (4.30-5.90); RDW 13.3 % (11.5-15.5); WBC 7.3 k/uL (3.8-10.6)
--- NOTE | 2022-09-12 14:47 | XR ---
EXAMINATION TYPE: XR chest 2V DATE OF EXAM: 09/12/2022 2:32 PM COMPARISON: Chest radiographs from 07/09/2022 TECHNIQUE: XR chest 2V Frontal and lateral views of the chest. CLINICAL INDICATION:Male, 82 years old with history of difficulty breathing; FINDINGS: Lungs/Pleura: Prominent interstitial lung markings are seen scattered throughout the lungs. No eviden ce of focal consolidation, pneumothorax or pleural effusion. Pulmonary vascularity: Unremarkable. Heart/mediastinum: Cardiomediastinal silhouette is prominent in size. Musculoskeletal: No acute osseous pathology. Midline sternotomy wires are noted. IMPRESSION: Chronic changes without acute pulmonary process. No significant change from prior.
[2022-09-12] MEDS ORDERED: IPRATROPIUM-ALBUTEROL 3 ML NEB INHALATION STA (15:17)
[2022-09-12] MEDS ORDERED: methylPREDNISolone SOD SUCCI 125 MG/2 ML VIAL IV STA (15:18)
[2022-09-12] MEDS ORDERED: PNEUMONIA PROTOCOL UTILIZED 1 EACH MISC PO PRN (15:19)
--- NOTE | 2022-09-12 15:25 | ED ---
SOB HPI - General Chief Complaint: Shortness of Breath Stated Complaint: FER Source: patient, EMS Mode of arrival: EMS Limitations: no limitations - History of Present Illness Initial Comments: 82-year-old male with past history of right fibrosis, coronary artery disease, sleep apnea with CPAP use who presents to the emergency department with worsening shortness of breath. Patient has chronic respiratory insufficiency and wears 2 L of oxygen almost all time. States that over the past couple of days he has had worsening shortness of breath with a fever and nonproductive co ugh. He has been taking Tylenol for his fevers. States the cough is too deep for him to bring anything up. He has been using his nebulizer 4 times a day without any improvement. Admits that his son-in-law is sick with vomiting. Patient has had some nausea without vomiting. Oral intake is diminished. He denies any abdominal pain or diarrhea. No chest pain. Does have history of congestive heart failure. No worsening lower extremity edema. No other alleviating, precipitating or modifying factors - Related Data Home Medications Medication Instructions Recorded Confirmed Ezetimibe [Zetia] 10 mg PO DAILY 02/13/16 09/12/22 Nitroglycerin Sl Tabs [Nitrostat] 0.4 mg SL Q5M PRN 06/22/16 09/12/22 clonazePAM [KlonoPIN] 0.5 mg PO DAILY PRN 06/22/16 09/12/22 Clopidogrel [Plavix] 75 mg PO DAILY 10/20/19 09/12/22 Montelukast Sodium [Singulair] 10 mg PO DAILY 06/22/20 09/12/22 DULoxetine HCL [Cymbalta] 60 mg PO DAILY 07/19/21 09/12/22 Fluticasone/Umeclidin/Vilanter 1 puff INHALATION RT-DAILY 03/06/22 09/12/22 [Trelegy Ellipta 100-62.5-25] Ipratropium-Albuterol Nebulize 3 ml INHALATION RT-QID 03/06/22 09/12/22 [Duoneb 0.5 mg-3 mg/3 ml Soln] predniSONE 5 mg PO DAILY 03/06/22 09/12/22 Acetaminophen Tab [Tylenol] 500 mg PO Q6H PRN 09/12/22 09/12/22 Rosuvastatin Calcium 10 mg PO DAILY 09/12/22 09/12/22 atenoloL 25 mg PO DAILY 09/12/22 09/12/22 Previous Rx's Medication Instructions Recorded Furosemide [Lasix] 20 mg PO DAILY #30 tab 07/13/22 methylPREDNISolone Dose Pack 4 mg PO DIRECTED #21 tab 09/14/22 [Medrol Dose Pack] Allergies Allergy/AdvReac Type Severity Reaction Status Date / Time No Known Allergies Allergy Verified 09/12/22 14:43 Review of Systems ROS Statement: Those systems with pertinent positive or pertinent negative responses have been documented in the HPI. ROS Other: All systems not noted in ROS Statement are negative. Past Medical History Past Medical History: Coronary Artery Disease (CAD), Heart Failure, COPD, Hyperlipidemia, Sleep Apnea/CPAP/BIPAP Additional Past Medical History / Comment(s): COPD, obesity, coronary artery disease with previous bypass surgery, cataracts, hiatal hernia, obstructive sleep apnea with CPAP therapy. 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 Mother Family Medical History: CVA/TIA Additional Family Medical History / Comment(s): at age 99 3/4 from a [place] General Exam Limitations: no limitations General appearance: alert, in no apparent distress Head exam: Present: atraumatic, normocephalic, normal inspection Eye exam: Present: normal appearance, PERRL, EOMI. Absent: scleral icterus, conjunctival injection, periorbital swelling ENT exam: Present: normal exam, mucous membranes moist Neck exam: Present: normal inspection. Absent: tenderness, meningismus, lymphadenopathy Respiratory exam: Present: wheezes, accessory muscle use, decreased breath sounds. Absent: respiratory distress, rales, rhonchi, stridor Cardiovascular Exam: Present: regular rate, normal rhythm, normal heart sounds. Absent: systolic murmur, diastolic murmur, rubs, gallop, clicks GI/Abdominal exam: Present: soft, normal bowel sounds. Absent: distended, tenderness, guarding, rebound, rigid Extremities exam: Present: normal inspection, full ROM, normal capillary refill. Absent: tenderness, pedal edema, joint swelling, calf tenderness Back exam: Present: normal inspection Neurological exam: Present: alert, oriented X3, CN II-XII intact Psychiatric exam: Present: normal affect, normal mood Skin exam: Present: warm, dry, intact, normal color. Absent: rash Course Vital Signs 09/12/22 09/12/22 09/12/22 12:38 14:38 15:54 Temperature 97.5 F L Pulse Rate 82 80 77 Respiratory 18 20 18 Rate Blood Pressure 140/96 133/66 142/77 O2 Sat by Pulse 95 95 95 Oximetry Medical Decision Making - Medical Decision Making On arrival patient is placed into room 9. A thorough history and physical exam was performed. He had been administered a breathing treatment by EMS. They also found him to have a temp of 101.2. Laboratory studies are conducted. I did order a gram of Tylenol due to EMS reported fever. Chest x-rays performed. Laboratory studies reviewed and demonstrated a lactic acid of 2.1. Coumadin influenza are negative. Chest x-ray is interpreted by myself as increased opacities in the bilateral lower lobes however read by the radiologist as chronic changes. Patient clinically has increased lung sounds. I did order a second breathing treatment on the patient's. Due to his weakness and worsening respiratory insufficiency I did discuss admission with the patient for which he was requesting. Called and spoke with Dr. Spence who was agreeable to admit the patient for observation. Antibiotics, steroids and breathing treatments are ordered. Patient was agreeable to this treatment plan and is currently awaiting a bed on the floor - Lab Data Result diagrams: 09/14/22 05:19 09/14/22 05:19 Lab Results 09/12/22 09/12/22 09/12/22 Range/Units 12:58 12:58 12:58 WBC 7.3 (3.8-10.6) k/uL RBC 4.41 (4.30-5.90) m/uL Hgb 14.4 (13.0-17.5) gm/dL Hct 40.7 (39.0-53.0) % MCV 92.4 (80.0-100.0) fL MCH 32.6 (25.0-35.0) pg MCHC 35.3 (31.0-37.0) g/dL RDW 13.3 (11.5-15.5) % Plt Count 126 L (150-450) k/uL MPV 11.0 Neutrophils % 73 % Lymphocytes % 16 % Monocytes % 6 % Eosinophils % 2 % Basophils % 1 % Neutrophils # 5.3 (1.3-7.7) k/uL Lymphocytes # 1.2 (1.0-4.8) k/uL Monocytes # 0.4 (0-1.0) k/uL Eosinophils # 0.1 (0-0.7) k/uL Basophils # 0.1 (0-0.2) k/uL PT 9.8 (9.0-12.0) sec INR 0.9 (<1.2) APTT 22.4 (22.0-30.0) sec Sodium 137 (137-145) mmol/L Potassium 4.0 (3.5-5.1) mmol/L Chloride 108 H (98-107) mmol/L Carbon Dioxide 21 L (22-30) mmol/L Anion Gap 8 mmol/L BUN 19 (9-20) mg/dL Creatinine 0.77 (0.66-1.25) mg/dL Est GFR (CKD-EPI)AfAm >90 (>60 ml/min/1.73 sqM) Est GFR (CKD-EPI)NonAf 85 (>60 ml/min/1.73 sqM) Glucose 195 H (74-99) mg/dL Lactic Ac Sepsis Rflx Plasma Lactic Acid Ronaldo (0.7-2.0) mmol/L Calcium 8.7 (8.4-10.2) mg/dL Total Bilirubin 0.5 (0.2-1.3) mg/dL AST 26 (17-59) U/L ALT 30 (4-49) U/L Alkaline Phosphatase 109 (38-126) U/L Troponin I (0.000-0.034) ng/mL NT-Pro-B Natriuret Pep pg/mL Total Protein 6.0 L (6.3-8.2) g/dL Albumin 3.7 (3.5-5.0) g/dL Coronavirus (PCR) (Not Detectd) Influenza Type A RNA (Not Detectd) Influenza Type B (PCR) (Not Detectd) 09/12/22 09/12/22 09/12/22 Range/Units 12:58 12:58 12:58 WBC (3.8-10.6) k/uL RBC (4.30-5.90) m/uL Hgb (13.0-17.5) gm/dL Hct (39.0-53.0) % MCV (80.0-100.0) fL MCH (25.0-35.0) pg MCHC (31.0-37.0) g/dL RDW (11.5-15.5) % Plt Count (150-450) k/uL MPV Neutrophils % % Lymphocytes % % Monocytes % % Eosinophils % % Basophils % % Neutrophils # (1.3-7.7) k/uL Lymphocytes # (1.0-4.8) k/uL Monocytes # (0-1.0) k/uL Eosinophils # (0-0.7) k/uL Basophils # (0-0.2) k/uL PT (9.0-12.0) sec INR (<1.2) APTT (22.0-30.0) sec Sodium (137-145) mmol/L Potassium (3.5-5.1) mmol/L Chloride (98-107) mmol/L Carbon Dioxide (22-30) mmol/L Anion Gap mmol/L BUN (9-20) mg/dL Creatinine (0.66-1.25) mg/dL Est GFR (CKD-EPI)AfAm (>60 ml/min/1.73 sqM) Est GFR (CKD-EPI)NonAf (>60 ml/min/1.73 sqM) Glucose (74-99) mg/dL Lactic Ac Sepsis Rflx Plasma Lactic Acid Ronaldo 2.1 H* (0.7-2.0) mmol/L Calcium (8.4-10.2) mg/dL Total Bilirubin (0.2-1.3) mg/dL AST (17-59) U/L ALT (4-49) U/L Alkaline Phosphatase (38-126) U/L Troponin I <0.012 (0.000-0.034) ng/mL NT-Pro-B Natriuret Pep 84 pg/mL Total Protein (6.3-8.2) g/dL Albumin (3.5-5.0) g/dL Coronavirus (PCR) (Not Detectd) Influenza Type A RNA (Not Detectd) Influenza Type B (PCR) (Not Detectd) 09/12/22 09/12/22 09/12/22 Range/Units 12:58 12:58 13:34 WBC (3.8-10.6) k/uL RBC (4.30-5.90) m/uL Hgb (13.0-17.5) gm/dL Hct (39.0-53.0) % MCV (80.0-100.0) fL MCH (25.0-35.0) pg MCHC (31.0-37.0) g/dL RDW (11.5-15.5) % Plt Count (150-450) k/uL MPV Neutrophils % % Lymphocytes % % Monocytes % % Eosinophils % % Basophils % % Neutrophils # (1.3-7.7) k/uL Lymphocytes # (1.0-4.8) k/uL Monocytes # (0-1.0) k/uL Eosinophils # (0-0.7) k/uL Basophils # (0-0.2) k/uL PT (9.0-12.0) sec INR (<1.2) APTT (22.0-30.0) sec Sodium (137-145) mmol/L Potassium (3.5-5.1) mmol/L Chloride (98-107) mmol/L Carbon Dioxide (22-30) mmol/L Anion Gap mmol/L BUN (9-20) mg/dL Creatinine (0.66-1.25) mg/dL Est GFR (CKD-EPI)AfAm (>60 ml/min/1.73 sqM) Est GFR (CKD-EPI)NonAf (>60 ml/min/1.73 sqM) Glucose (74-99) mg/dL Lactic Ac Sepsis Rflx Y Plasma Lactic Acid Ronaldo (0.7-2.0) mmol/L Calcium (8.4-10.2) mg/dL Total Bilirubin (0.2-1.3) mg/dL AST (17-59) U/L ALT (4-49) U/L Alkaline Phosphatase (38-126) U/L Troponin I (0.000-0.034) ng/mL NT-Pro-B Natriuret Pep pg/mL Total Protein (6.3-8.2) g/dL Albumin (3.5-5.0) g/dL Coronavirus (PCR) Not Detected (Not Detectd) Influenza Type A RNA Not Detected (Not Detectd) Influenza Type B (PCR) Not Detected (Not Detectd) EKG demonstrates a sinus rhythm with a rate of 79.. 167. QRS 158. QTC of 457. No acute ST segment elevations. ST depression V1 through V3 associated with reported bundle-branch block. EKG interpreted by myself. 09/12/22 15:40 Disposition Clinical Impression: Acute exacerbation of chronic obstructive airways disease, Pulmonary fibrosis Disposition: ADMITTED IP TO THIS [facility] Condition: Stable Is patient prescribed a controlled substance at d/c from ED?: No Time of Disposition: 15:25 Decision to Admit Reason: Admit from EC Decision Date: 09/12/22 Decision Time: 15:25
[2022-09-12] MEDS: IPRATROPIUM-ALBUTEROL 3 ML NEB INHALATION SCH ×2 (16:23→21:16)
--- NOTE | 2022-09-12 16:28 | P.HPIM ---
History of Present Illness H&P Date: 09/12/22 Chief Complaint: SOB Patient is a 82-year-old male with history of COPD, CAD status post CABG, possible pulmonary fibrosis, chronic hypoxic respiratory failure on 2 L occasionally, diabetes, HELEN, diastolic CHF, hypertension, dyslipidemia with worsening shortness of breath and nonproductive cough. Reportedly, patient was febrile when examined by EMS. He has been having subjective fevers, taking Tylenol. He used his nebulizers more often without any improvement. He denies any orthopnea, PND. He denies any lower extremity swelling. He denies any mateo st pain, palpitations, lightheadedness, abdominal pain, vomiting, diarrhea, constipation, or urinary complaints. He has mild nausea. In the ED, vital signs have been stable, patient saturating well on room air, laboratory workup shows normal white count, mildly elevated lactic acid at 2.1. COVID-19 and influenza test was negative. Chest x-ray shows chronic changes without any acute pulmonary process. EKG showed right bundle branch block with nonspecific ST-T wave changes. He received duo nebs and steroids. Patient seen and examined at bedside. Pertinent positives and negatives as discussed in HPI, a complete review of systems was performed and all other systems are negative. Vital signs reviewed General: nontoxic, no distress, appears at stated age Derm: warm, dry Head: atraumatic, normocephalic, symmetric Eyes: EOMI, no lid lag, anicteric sclera, pupils equal round reactive to light ENT: Nose and ears atraumatic Neck: No thyromegaly, supple Mouth: no lip lesion, mucus membranes moist Cardiovascular: S1S2 reg, no murmur, no edema Lungs: Bilateral rales at the bases, no wheezing no accessory muscle use, on room air Abdominal: soft, nontender to palpation, no guarding, no appreciable organomegaly Ext: no gross muscle atrophy, muscle strength muscle strength 5 out of 5 in all 4 extremities, no contractures Neuro: CN II-XII grossly intact Psych: Alert, oriented, appropriate affect Assessment/Plan: Acute dyspnea Acute COPD exacerbation Possible flare of pulmonary fibrosis Possible pneumonia Reported fevers Lactic acidosis -Normal white count, no hypoxia -We will order pro-calcitonin -Cultures pending -Continue steroids and bronchodilators, and IV antibiotics History of diastolic CHF History of HELEN on CPAP CAD status post CABG Right bundle-branch block Diabetes Hypertension Dyslipidemia -Continue home medications The patient is admitted with an anticipated less than 2 midnight stay for evaluation of shortness of breath. Surrogate decision-maker: Spouse CODE STATUS: Full code DVT prophylaxis: Subcu heparin Anticipated discharge date: 1-[address]: Home A total of 58 minutes was spent on the care of this complex patient more than 50% of the time was spent in counseling and care coordination. Past Medical History Past Medical History: Coronary Artery Disease (CAD), Heart Failure, COPD, Hyperlipidemia, Sleep Apnea/CPAP/BIPAP Additional Past Medical History / Comment(s): COPD, obesity, coronary artery disease with previous bypass surgery, cataracts, hiatal hernia, obstructive sleep apnea with CPAP therapy. 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 Mother Family Medical History: CVA/TIA Additional Family Medical History / Comment(s): at age 99 3/4 from a stoke Medications and Allergies Home Medications Medication Instructions Recorded Confirmed Type Ezetimibe [Zetia] 10 mg PO DAILY 02/13/16 09/12/22 History Nitroglycerin Sl Tabs [Nitrostat] 0.4 mg SL Q5M PRN 06/22/16 09/12/22 History clonazePAM [KlonoPIN] 0.5 mg PO DAILY PRN 06/22/16 09/12/22 History Clopidogrel [Plavix] 75 mg PO DAILY 10/20/19 09/12/22 History Montelukast Sodium [Singulair] 10 mg PO DAILY 06/22/20 09/12/22 History DULoxetine HCL [Cymbalta] 60 mg PO DAILY 07/19/21 09/12/22 History Fluticasone/Umeclidin/Vilanter 1 puff INHALATION RT-DAILY 03/06/22 09/12/22 History [Trelegy Ellipta 100-62.5-25] Ipratropium-Albuterol Nebulize 3 ml INHALATION RT-QID 03/06/22 09/12/22 History [Duoneb 0.5 mg-3 mg/3 ml Soln] predniSONE 5 mg PO DAILY 03/06/22 09/12/22 History Furosemide [Lasix] 20 mg PO DAILY #30 tab 07/13/22 09/12/22 Rx Acetaminophen Tab [Tylenol Tab] 500 mg PO Q6H PRN 09/12/22 09/12/22 History Rosuvastatin Calcium 10 mg PO DAILY 09/12/22 09/12/22 History atenoloL 25 mg PO DAILY 09/12/22 09/12/22 History Allergies Allergy/AdvReac Type Severity Reaction Status Date / Time No Known Allergies Allergy Verified 09/12/22 14:43 Physical Exam Vitals: Vital Signs Temp Pulse Resp BP Pulse Ox 09/12/22 15:54 77 18 142/77 95 09/12/22 14:38 80 20 133/66 95 09/12/22 12:38 97.5 F L 82 18 140/96 95 Intake and Output 09/12/22 09/12/22 09/12/22 06:59 14:59 22:59 Other: Weight 102.058 kg Results CBC & Chem 7: 09/12/22 12:58 09/12/22 12:58 Labs: Abnormal Lab Results - Last 24 Hours (Table) 09/12/22 09/12/22 09/12/22 Range/Units 12:58 12:58 12:58 Plt Count 126 L (150-450) k/uL Chloride 108 H (98-107) mmol/L Carbon Dioxide 21 L (22-30) mmol/L Glucose 195 H (74-99) mg/dL Plasma Lactic Acid Ronaldo 2.1 H* (0.7-2.0) mmol/L Total Protein 6.0 L (6.3-8.2) g/dL
[2022-09-12] MEDS: AZITHROMYCIN 500 MG in SODIUM CHLORIDE 0.9% 250 ML IVPB SCH (16:50)
[2022-09-12] MEDS ORDERED: ASPIRIN 81 MG PO STA (21:10)
[2022-09-12] MEDS: methylPREDNISolone SOD SUCCI 40 MG/ML 1 ML VIAL IV SCH (23:12)
[2022-09-12] MEDS: HEPARIN SODIUM,PORCINE/PF 5,000 UNIT/0.5 ML SYRINGE SQ SCH (23:13)
[2022-09-13] MEDS: IPRATROPIUM-ALBUTEROL 3 ML NEB INHALATION SCH ×7 (01:37→23:42)
[2022-09-13] MEDS: clonazePAM 0.5 MG TAB PO PRN (03:54)
--- NOTE | 2022-09-13 07:40 | XR ---
EXAMINATION TYPE: XR chest 2V DATE OF EXAM: 09/13/2022 COMPARISON: 09/12/2022 INDICATION: Pneumonia TECHNIQUE: Frontal and lateral views of the chest are obtained. FINDINGS: The heart size is normal. Sternotomy wires are in the midline. The pulmonary vasculature is normal. Minimal infiltrates at the right costophrenic angle. Lungs otherwise appear clear. IMPRESSION: 1. Mild right basilar infiltrate. Correlate for atelectasis or pneumonia.
[2022-09-13] MEDS ORDERED: SYMBICORT 80-4.5 MCG INHALER INHALATION SCH (08:00)
[2022-09-13] MEDS: DULoxetine HCL 60 MG CAPSULE.DR PO SCH (09:08)
[2022-09-13] MEDS: EZETIMIBE 10 MG TAB PO SCH (09:08)
[2022-09-13] MEDS: HEPARIN SODIUM,PORCINE/PF 5,000 UNIT/0.5 ML SYRINGE SQ SCH ×2 (09:08→18:13)
[2022-09-13] MEDS: MONTELUKAST 10 MG TAB PO SCH (09:09)
[2022-09-13] MEDS: atenoloL 25 MG TAB PO SCH (09:09)
[2022-09-13] MEDS: CLOPIDOGREL 75 MG TAB PO SCH (09:09)
[2022-09-13] MEDS: ATORVASTATIN 20 MG TAB PO SCH (09:09)
[2022-09-13] MEDS: methylPREDNISolone SOD SUCCI 40 MG/ML 1 ML VIAL IV SCH ×2 (09:09→18:13)
[2022-09-13] MEDS: FUROSEMIDE 20 MG TAB PO SCH (09:09)
[2022-09-13] MEDS: SYMBICORT 160-4.5 MCG INHALER INHALATION SCH ×2 (09:56→19:35)
[2022-09-13] MEDS: AZITHROMYCIN 500 MG in SODIUM CHLORIDE 0.9% 250 ML IVPB SCH (10:06)
[2022-09-13] MEDS ORDERED: VANCOMYCIN IV PER PHARMACY 1 EACH MISC MISCELLANE PRN (13:52)
[2022-09-13] MEDS ORDERED: VANCOMYCIN 1,500 MG in SODIUM CHLORIDE 0.9% 500 ML 500 ML IVPB SCH (14:00)
--- NOTE | 2022-09-13 14:01 | P.PN ---
Subjective Progress Note Date: 09/13/22 Principal diagnosis: sob Patient still having shortness of breath and cough. No fevers or chills. No chest pain or nausea or vomiting. Blood cultures came back positive for gram- positive cocci in clusters. Chest x-ray from today showing right lower lobe infiltrates versus atelectasis. Objective - Vital Signs Vital signs: Vital Signs Temp 97.8 F 09/13/22 07:00 Pulse 84 09/13/22 11:13 Resp 16 09/13/22 07:00 BP 147/76 09/13/22 07:00 Pulse Ox 96 09/13/22 07:10 FiO2 Intake & Output 09/12/22 09/13/22 09/13/22 18:59 06:59 18:59 Intake Total 240 Balance 240 Weight 102.058 kg Intake: Oral 240 Other: Voiding Method Toilet # Voids 3 - Exam Constitutional: No acute distress, conversant, pleasant Eyes:Anicteric sclerae, moist conjunctiva, no lid-lag, PERRLA, ENMT: Oropharynx clear, no erythema, exudates Neck: Supple, FROM, no masses, or JVD, No carotid bruits, No thyromegaly Lungs: Bilateral expiratory wheezes, Clear to percussion, Normal respiratory effort, no accessory muscle use Cardiovascular: Heart regular in rate and rhythm, No murmurs, gallops, or rubs, No peripheral edema Abdominal: Soft, Nontender, no guarding, rebound or rigidity, Normoactive bowel sounds, No hepatomegaly, No splenomegaly, No palpable mass Skin: Normal temperature, tone, texture, turgor, no induration, No subcutaneous nodules, No rash, lesions, No ulcers Extremities: No digital cyanosis, No clubbing, Pedal pulses intact and symmetrical, Radial pulses intact and symmetrical, No calf tenderness Psychiatric: Alert and oriented to person, place and time, appropriate affect, intact judgement Neuro: Muscles Strength 5/5 in all 4 extremities, Sensation to light touch grossly present throughout, Cranial nerves II-XII grossly intact, no focal sensory deficits - Labs CBC & Chem 7: 09/12/22 12:58 09/12/22 12:58 Labs: Microbiology - Last 24 Hours (Table) 09/12/22 16:15 Blood Culture Gram Stain - Preliminary Blood 09/12/22 16:15 Blood Culture - Final Blood Assessment and Plan Plan: Acute dyspnea Acute COPD exacerbation Possible flare of pulmonary fibrosis Healthcare acquired pneumonia Multiple recent hospitalizations for the same issue Continue steroids and bronchodilators, and IV antibiotics Sepsis was present on admission Lactic acidosis -Resolved Gram-positive bacteremia On Gram-positive cocci in the blood, discussed with infectious disease service, will consult Add vancomycin Chronic History of diastolic CHF History of HELEN on CPAP CAD status post CABG Right bundle-branch block Diabetes 2 Hypertension Dyslipidemia -Continue home medications Surrogate decision-maker: Spouse CODE STATUS: Full code DVT prophylaxis: Subcu heparin Anticipated discharge date: 1-[address]: Home
[2022-09-13] MEDS: ACETAMINOPHEN TAB 325 MG TAB PO PRN ×2 (14:11→20:50)
--- NOTE | 2022-09-13 15:36 | P.CNPUL ---
History of Present Illness Consult date: 09/13/22 Requesting physician: Blanche Spence Reason for consult: dyspnea, cough, COPD Chief complaint: Shortness of breath. History of present illness: Pulmonary consult dated 09/13/2022. 82-year-old male with a history of shortness of breath, seen in the emergency room on September 12, and admitted to the hospital with an exacerbation of his COPD/pulmonary fibrosis. The patient also has a history of sleep apnea syndrome, and obesity. The patient has been admitted about 4 times this year already, with similar complaints of shortness of breath. He sees one of my partners in the office. Currently, he is resting very comfortably. He is on room air, and not receiving any IV fluids. He sees a family doctor in [place]. White count 7.3, hemoglobin 14.4, hematocrit 40.7, and platelet count 126,000. Sodium 137, potassium 4, chlorides 108, CO2 21, anion gap normal, BUN 19, and creatinine 0.77. Lactic acid initially was 2.1. Repeat was 1.7. Testing for influenza, and coronavirus, we'll both negative. Pro-calcitonin level was very low at 0.08. Chest x-ray showed some right basilar atelectasis. Review of Systems REVIEW OF SYSTEMS: CONSTITUTIONAL: [Negative.] NEUROLOGIC: [ Negative.] HEENT: [ Negative.] CARDIAC: [Negative.] PULMONARY: Shortness of breath, chest tightness, and cough. GI: [Negative.] : [Negative.] RHEUMATOLOGIC: [ Negative.] IMMUNOLOGIC: [ Negative.] ENDOCRINE: [Negative. ] DERMATOLOGIC: [Negative.] Past Medical History Past Medical History: Coronary Artery Disease (CAD), Heart Failure, COPD, Hyperlipidemia, Sleep Apnea/CPAP/BIPAP Additional Past Medical History / Comment(s): COPD, obesity, coronary artery disease with previous bypass surgery, cataracts, hiatal hernia, obstructive sleep apnea with CPAP therapy. 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 Mother Family Medical History: CVA/TIA Additional Family Medical History / Comment(s): at age 99 3/4 from a stoke Medications and Allergies Home Medications Medication Instructions Recorded Confirmed Type Ezetimibe [Zetia] 10 mg PO DAILY 02/13/16 09/12/22 History Nitroglycerin Sl Tabs [Nitrostat] 0.4 mg SL Q5M PRN 06/22/16 09/12/22 History clonazePAM [KlonoPIN] 0.5 mg PO DAILY PRN 06/22/16 09/12/22 History Clopidogrel [Plavix] 75 mg PO DAILY 10/20/19 09/12/22 History Montelukast Sodium [Singulair] 10 mg PO DAILY 06/22/20 09/12/22 History DULoxetine HCL [Cymbalta] 60 mg PO DAILY 07/19/21 09/12/22 History Fluticasone/Umeclidin/Vilanter 1 puff INHALATION RT-DAILY 03/06/22 09/12/22 History [Trelegy Ellipta 100-62.5-25] Ipratropium-Albuterol Nebulize 3 ml INHALATION RT-QID 03/06/22 09/12/22 History [Duoneb 0.5 mg-3 mg/3 ml Soln] predniSONE 5 mg PO DAILY 03/06/22 09/12/22 History Furosemide [Lasix] 20 mg PO DAILY #30 tab 07/13/22 09/12/22 Rx Acetaminophen Tab [Tylenol Tab] 500 mg PO Q6H PRN 09/12/22 09/12/22 History Rosuvastatin Calcium 10 mg PO DAILY 09/12/22 09/12/22 History atenoloL 25 mg PO DAILY 09/12/22 09/12/22 History Allergies Allergy/AdvReac Type Severity Reaction Status Date / Time No Known Allergies Allergy Verified 09/12/22 14:43 Physical Exam Osteopathic Statement: *. No significant issues noted on an osteopathic structural exam other than those noted in the History and Physical/Consult. Vitals: Vital Signs Temp Pulse Pulse Resp BP BP BP 09/13/22 15:17 78 09/13/22 15:08 76 09/13/22 11:13 84 09/13/22 11:00 80 09/13/22 07:25 90 09/13/22 07:10 09/13/22 07:07 88 09/13/22 07:00 97.8 F 100 16 147/76 09/13/22 02:00 97.7 F 64 18 138/71 09/13/22 01:46 85 09/13/22 01:37 82 09/12/22 21:30 86 09/12/22 21:19 85 09/12/22 18:52 98.0 F 85 20 138/74 09/12/22 16:44 97.9 F 82 18 135/70 09/12/22 15:54 77 18 142/77 Pulse Ox 09/13/22 15:17 09/13/22 15:08 09/13/22 11:13 09/13/22 11:00 09/13/22 07:25 09/13/22 07:10 96 09/13/22 07:07 09/13/22 07:00 93 L 09/13/22 02:00 96 09/13/22 01:46 09/13/22 01:37 09/12/22 21:30 09/12/22 21:19 09/12/22 18:52 95 09/12/22 16:44 96 09/12/22 15:54 95 Intake and Output 09/13/22 09/13/22 09/13/22 06:59 14:59 22:59 Intake Total 480 Balance 480 Intake: Oral 480 Other: # Voids 3 No acute distress, oriented 3. No conversational dyspnea, use of accessory muscles, or audible wheezing, or use of supplemental oxygen. HEENT examination is grossly unremarkable. Neck supple. Full range of motion. No adenopathy thyromegaly or neck vein distention. Cardiovascular examination reveals regular rhythm rate. S1-S2 normal. No S3 or S4. A soft systolic murmur is noted. Heart rate 70 bpm. Lungs reveal mostly clear breath sounds. Minimal scattered rhonchi. No wheezes. No crackles. Breath sounds equal bilaterally, but diminished throughout. Abdomen soft bowel sounds are heard. No masses or tenderness. Extremities are intact. No cyanosis clubbing or edema. Skin is without rash or lesion. Neurologic examination is brief but nonfocal. Results - Laboratory Findings CBC and BMP: 09/12/22 12:58 09/12/22 12:58 PT/INR, D-dimer PT 9.8 sec (9.0-12.0) 09/12/22 12:58 INR 0.9 (<1.2) 09/12/22 12:58 Abnormal lab findings: Abnormal Labs 09/12/22 09/12/22 12 12:58 12:58 12:58 Plt Count 126 L Chloride 108 H Carbon Dioxide 21 L Glucose 195 H Plasma Lactic Acid Ronaldo 2.1 H* Total Protein 6.0 L - Diagnostic Findings Chest x-ray: image reviewed Assessment and Plan Assessment: Acute exacerbation of COPD, and a patient with moderate COPD, and an FEV1 percent that is 72. History of stable CHF. History of CAD, with previous bypass grafting. History of hyperlipidemia. History of hypertension. History of sleep apnea syndrome, on home CPAP. History of chronic cataracts. History of hiatal hernia. Plan: Plan dated 09/13/2022. We had Symbicort, 160/4.5, 2 puffs twice a day. His chest x-rays mention is essentially normal. He does have a soft systolic murmur, consistent with aortic stenosis. He does also have some mild lower extremity edema. The patient appears not to be in any distress whatsoever. He is not requiring any supplemental oxygen. There is no audible wheezing or use of accessory muscles. No evidence of heart failure, as his N-terminal proBNP is normal. Also, doubt significant bacterial infection as his pro-calcitonin level is 0.08. I'm going to DC his azithromycin and Rocephin. We will continue to follow and make recommendations along the way. The patient was placed on vancomycin, because of positive blood cultures for gram-positive cocci, which may in fact be coag- negative staph. We will await identification. Time with Patient: Greater than 30
--- NOTE | 2022-09-13 21:28 | P.CONS ---
History of Present Illness - Reason for Consult Consult date: 09/13/22 Bacteremia Requesting physician: Alexy Aguirre - Chief Complaint Increased shortness of breath and cough x few days - History of Present Illness Patient is a 82-year-old male with a past medical history significant for coronary artery disease sleep apnea congestive heart failure presented to the hospital for evaluation of increasing shortness of breath symptom has been getting worse for few days before presentation to the hospital patient also complaining of a cough which has been moderate intensity however not bring up any sputum patient denies having any pleuritic chest pain denies high-grade fever on presentation to the hospital the patient was afebrile and no fever has been recorded subsequently patient was not hypoxic or need for supplemental oxygen patient did have a normal white count lactic acid mildly elevated kidney function was normal liver enzymes are normal did have a normal procalcitonin influenza RSV PCR negative patient did have a blood cultures came back positive with gram-positive cocci patient was started on vancomycin infectious disease was consulted for further management of antibiotic because of his bacteremia patient did have a chest x-ray chronic changes without acute pulmonary process Review of Systems Positive point has been mentioned in the HPI rest of the systems are negative Past Medical History Past Medical History: Coronary Artery Disease (CAD), Heart Failure, COPD, Hyperlipidemia, Sleep Apnea/CPAP/BIPAP Additional Past Medical History / Comment(s): COPD, obesity, coronary artery disease with previous bypass surgery, cataracts, hiatal hernia, obstructive sleep apnea with CPAP therapy. 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 Mother Family Medical History: CVA/TIA Additional Family Medical History / Comment(s): at age 99 3/4 from a stoke Medications and Allergies Home Medications Medication Instructions Recorded Confirmed Type Ezetimibe [Zetia] 10 mg PO DAILY 02/13/16 09/12/22 History Nitroglycerin Sl Tabs [Nitrostat] 0.4 mg SL Q5M PRN 06/22/16 09/12/22 History clonazePAM [KlonoPIN] 0.5 mg PO DAILY PRN 06/22/16 09/12/22 History Clopidogrel [Plavix] 75 mg PO DAILY 10/20/19 09/12/22 History Montelukast Sodium [Singulair] 10 mg PO DAILY 06/22/20 09/12/22 History DULoxetine HCL [Cymbalta] 60 mg PO DAILY 07/19/21 09/12/22 History Fluticasone/Umeclidin/Vilanter 1 puff INHALATION RT-DAILY 03/06/22 09/12/22 History [Trelegy Ellipta 100-62.5-25] Ipratropium-Albuterol Nebulize 3 ml INHALATION RT-QID 03/06/22 09/12/22 History [Duoneb 0.5 mg-3 mg/3 ml Soln] predniSONE 5 mg PO DAILY 03/06/22 09/12/22 History Furosemide [Lasix] 20 mg PO DAILY #30 tab 07/13/22 09/12/22 Rx Acetaminophen Tab [Tylenol] 500 mg PO Q6H PRN 09/12/22 09/12/22 History Rosuvastatin Calcium 10 mg PO DAILY 09/12/22 09/12/22 History atenoloL 25 mg PO DAILY 09/12/22 09/12/22 History methylPREDNISolone Dose Pack 4 mg PO DIRECTED #21 tab 09/14/22 Rx [Medrol Dose Pack] Allergies Allergy/AdvReac Type Severity Reaction Status Date / Time No Known Allergies Allergy Verified 09/12/22 14:43 Physical Exam Vitals: Vital Signs Temp Pulse Pulse Resp BP BP BP 09/13/22 11:13 84 09/13/22 11:00 80 09/13/22 07:25 90 09/13/22 07:10 09/13/22 07:07 88 09/13/22 07:00 97.8 F 100 16 147/76 09/13/22 02:00 97.7 F 64 18 138/71 09/13/22 01:46 85 09/13/22 01:37 82 09/12/22 21:30 86 09/12/22 21:19 85 09/12/22 18:52 98.0 F 85 20 138/74 09/12/22 16:44 97.9 F 82 18 135/70 09/12/22 15:54 77 18 142/77 09/12/22 14:38 80 20 133/66 Pulse Ox 09/13/22 11:13 09/13/22 11:00 09/13/22 07:25 09/13/22 07:10 96 09/13/22 07:07 09/13/22 07:00 93 L 09/13/22 02:00 96 09/13/22 01:46 09/13/22 01:37 09/12/22 21:30 09/12/22 21:19 09/12/22 18:52 95 09/12/22 16:44 96 09/12/22 15:54 95 09/12/22 14:38 95 Intake and Output 09/12/22 09/13/22 09/13/22 22:59 06:59 14:59 Intake Total 480 Balance 480 Intake: Oral 480 Other: Voiding Method Toilet # Voids 2 3 Weight 102.058 kg GENERAL DESCRIPTION: Elderly male lying in bed, no distress. No tachypnea or accessory muscle of respiration use. HEENT: Shows Pallor , no scleral icterus. Oral mucous membrane is dry. No pharyngeal erythema or thrush NECK: Trachea central, no thyromegaly. LUNGS: Unlabored breathing. Coarse breath sounds bilaterally HEART: S1, S2, regular rate and rhythm. No loud murmur ABDOMEN: Soft, no tenderness , guarding or rigidity, no organomegaly EXTREMITIES: No edema of feet. SKIN: No rash, no masses palpable. NEUROLOGICAL: The patient is awake, alert, oriented x3, mood and affect normal. Results CBC & Chem 7: 09/14/22 05:19 09/14/22 05:19 Labs: Microbiology - Last 24 Hours (Table) 09/12/22 16:15 Blood Culture Gram Stain - Preliminary Blood 09/12/22 16:15 Blood Culture - Final Blood Assessment and Plan (1) Positive blood culture Status: Acute Code(s): R78.81 - BACTEREMIA SNOMED Code(s): 245699057 Plan: 1patient with a positive blood culture with gram-positive cocci 2 out of 2 however patient is currently not running any fever or elevated white count chest x-ray was negative for any pneumonia with a question of possible skin contamination. 2blood culture has been repeated document clearance. 3patient has been started on vancomycin however if the blood cultures finalized as staph epi antibiotic can be safely discontinued. 4-Patient with likely COPD exacerbation with evidence of any pneumonia with normal procalcitonin Rocephin and Zithromax has been discontinued appropriately. We will follow on clinical condition and cultures to further adjust medication if needed Thank you for this consultation we will follow the patient along with you Time with Patient: Greater than 30
[2022-09-14] MEDS: HEPARIN SODIUM,PORCINE/PF 5,000 UNIT/0.5 ML SYRINGE SQ SCH ×2 (00:49→09:42)
[2022-09-14] MEDS: methylPREDNISolone SOD SUCCI 40 MG/ML 1 ML VIAL IV SCH ×2 (00:49→09:42)
[2022-09-14] MEDS: clonazePAM 0.5 MG TAB PO PRN (00:49)
[2022-09-14] MEDS: IPRATROPIUM-ALBUTEROL 3 ML NEB INHALATION SCH ×3 (04:30→12:03)
[2022-09-14 07:32] VITALS: BP 152/67; RESP 16; TEMP 97.4
[2022-09-14] MEDS: SYMBICORT 160-4.5 MCG INHALER INHALATION SCH (08:13)
[2022-09-14 08:52] LABS: African American GFR (CKD) 92.6 (60.0-200.0); BUN/Creat Ratio 19.93 Ratio (12.00-20.00); Blood Urea Nitrogen 17.9 mg/dL (9.0-27.0); C Reactive Protein <0.30 mg/dL (0.00-0.80); Calcium 9.1 mg/dL (8.7-10.3); Carbon Dioxide 22.2 mmol/L (20.0-27.5); Chloride 102 mmol/L (96-109); Glucose 215 mg/dL (70-110); Non-African American GFR(CKD) 79.9 (60.0-200.0); Potassium 4.9 mmol/L (3.5-5.5); Sodium 135 mmol/L (135-145)
[2022-09-14] MEDS ORDERED: AZITHROMYCIN 500 MG TAB PO SCH (09:00)
[2022-09-14] MEDS: CLOPIDOGREL 75 MG TAB PO SCH (09:42)
[2022-09-14] MEDS: atenoloL 25 MG TAB PO SCH (09:42)
[2022-09-14] MEDS: ATORVASTATIN 20 MG TAB PO SCH (09:42)
[2022-09-14] MEDS: DULoxetine HCL 60 MG CAPSULE.DR PO SCH (09:43)
[2022-09-14] MEDS: MONTELUKAST 10 MG TAB PO SCH (09:43)
[2022-09-14] MEDS: FUROSEMIDE 20 MG TAB PO SCH (09:43)
[2022-09-14] MEDS: EZETIMIBE 10 MG TAB PO SCH (09:43)
[2022-09-14] MEDS: ACETAMINOPHEN TAB 325 MG TAB PO PRN (09:51)
[2022-09-14 10:11] LABS: Basophils # (A) 0.02 X 10*3/uL (0.00-0.10); Basophils % (A) 0.1 %; Eosinophils # (A) 0 X 10*3/uL (0.04-0.35); Eosinophils % (A) 0 %; HCT 39.7 % (39.6-50.0); HGB 13.3 g/dL (13.0-17.0); Immature Grans, Automated 0.5 %; Lymphocytes # (A) 0.74 X 10*3/uL (0.90-5.00); Lymphocytes % (A) 4.7 %; MCH 31.9 pg (27.0-32.0); MCHC 33.5 g/dL (32.0-37.0); MCV 95.2 fL (80.0-97.0); Mean Platelet Volume 12.8 fL (9.5-12.2); Monocytes # (A) 0.33 X 10*3/uL (0.20-1.00); Monocytes % (A) 2.1 %; NRBC Per 100 WBC 0 /100 WBCS (0.0-0.0); Neutrophils % (A) 92.6 %; Platelet Count 161 X 10*3/uL (140-440); RBC 4.17 X 10*6/uL (4.40-5.60); RDW 13.2 % (11.5-14.5); WBC 15.87 X 10*3/uL (4.50-10.00)
[2022-09-14 12:05] VITALS: PULSE 80
--- NOTE | 2022-09-14 12:44 | P.DS ---
Providers Date of admission: 09/12/22 15:19 Expected date of discharge: 09/14/22 Attending physician: Blanche Spence DO Consults: 09/12/22 15:19 Consult Physician Stat Consulting Provider: Jesse Gomez Consult Reason/Comments: acute COPD exacerbation, acute tracheobronchitis, hx pulmonary fibrosis Do you want consulting provider notified?: Yes 09/13/22 13:52 Consult Physician Urgent Consulting Provider: Jennifer Waldrop Consult Reason/Comments: bacteremia Do you want consulting provider notified?: Already Contacted Primary care physician: D[facility] Course: 82-year-old male with history of COPD, CAD status post CABG, possible pulmonary fibrosis, chronic hypoxic respiratory failure on 2 L occasionally, diabetes, HELEN, diastolic CHF, hypertension, dyslipidemia with worsening shortness of breath and nonproductive cough. Reportedly, patient was febrile when examined by EMS. He has been having subjective fevers, taking Tylenol. He used his nebulizers more often without any improvement. He denies any orthopnea, PND. He denies any lower extremity swelling. He denies any chest pain, palpitations, lightheadedness, abdominal pain, vomiting, diarrhea, constipation, or urinary complaints. He has mild nausea. In the ED, vital signs have been stable, patient saturating well on room air, laboratory workup shows normal white count, mildly elevated lactic acid at 2.1. COVID-19 and influenza test was negative. Chest x-ray shows chronic changes without any acute pulmonary process. EKG showed right bundle branch block with nonspecific ST-T wave changes. He received duo nebs and steroids. Patient was admitted for suspected pneumonia, he was started on ceftriaxone and azithromycin. However procal came back within normal range therefore abx were discontinued. Blood cultures grew coag negative staph. He was given 1 dose of vancomycin IV. He was seen by pulm and ID. The growth in the blood was considered contamination by infectious disease. He was cleared by infectious disease and pulmonary services for discharge. He will be discharged home in a stable condition. Patient was seen and examined on the day of discharge 09/14 Time for discharge 35 minutes. Patient Condition at Discharge: Stable Plan - Discharge Summary New Discharge Prescriptions: New methylPREDNISolone Dose Pack [Medrol Dose Pack] 4 mg PO DIRECTED #21 tab Continue Ezetimibe [Zetia] 10 mg PO DAILY clonazePAM [KlonoPIN] 0.5 mg PO DAILY PRN PRN Reason: Anxiety Nitroglycerin Sl Tabs [Nitrostat] 0.4 mg SL Q5M PRN PRN Reason: Chest Pain Clopidogrel [Plavix] 75 mg PO DAILY Montelukast Sodium [Singulair] 10 mg PO DAILY DULoxetine HCL [Cymbalta] 60 mg PO DAILY Fluticasone/Umeclidin/Vilanter [Trelegy Ellipta 100-62.5-25] 1 puff INHALATION RT-DAILY Acetaminophen Tab [Tylenol] 500 mg PO Q6H PRN PRN Reason: Pain predniSONE 5 mg PO DAILY Ipratropium-Albuterol Nebulize [Duoneb 0.5 mg-3 mg/3 ml Soln] 3 ml INHALATION RT-QID Furosemide [Lasix] 20 mg PO DAILY #30 tab Rosuvastatin Calcium 10 mg PO DAILY atenoloL 25 mg PO DAILY Discharge Medication List Ezetimibe [Zetia] 10 mg PO DAILY 02/13/16 [History] Nitroglycerin Sl Tabs [Nitrostat] 0.4 mg SL Q5M PRN 06/22/16 [History] clonazePAM [KlonoPIN] 0.5 mg PO DAILY PRN 06/22/16 [History] Clopidogrel [Plavix] 75 mg PO DAILY 10/20/19 [History] Montelukast Sodium [Singulair] 10 mg PO DAILY 06/22/20 [History] DULoxetine HCL [Cymbalta] 60 mg PO DAILY 07/19/21 [History] Fluticasone/Umeclidin/Vilanter [Trelegy Ellipta 100-62.5-25] 1 puff INHALATION RT-DAILY 03/06/22 [History] Ipratropium-Albuterol Nebulize [Duoneb 0.5 mg-3 mg/3 ml Soln] 3 ml INHALATION RT-QID 03/06/22 [History] predniSONE 5 mg PO DAILY 03/06/22 [History] Furosemide [Lasix] 20 mg PO DAILY #30 tab 07/13/22 [Rx] Acetaminophen Tab [Tylenol] 500 mg PO Q6H PRN 09/12/22 [History] Rosuvastatin Calcium 10 mg PO DAILY 09/12/22 [History] atenoloL 25 mg PO DAILY 09/12/22 [History] methylPREDNISolone Dose Pack [Medrol Dose Pack] 4 mg PO DIRECTED #21 tab 09/14/22 [Rx] Follow up Appointment(s)/Referral(s): Doretha Rose MD [Primary Care Provider] - 1-2 days
--- NOTE | 2022-09-14 14:39 | P.PN ---
Subjective Progress Note Date: 09/14/22 Principal diagnosis: Shortness of breath 82-year-old male with a history of shortness of breath, seen in the emergency room on September 12, and admitted to the hospital with an exacerbation of his COPD/pulmonary fibrosis. The patient also has a history of sleep apnea syndrome, and obesity. The patient has been admitted about 4 times this year already, with similar complaints of shortness of breath. He sees one of my partners in the office. Currently, he is resting very comfortably. He is on room air, and not receiving any IV fluids. He sees a family doctor in [facility]. White count 7.3, hemoglobin 14.4, hematocrit 40.7, and platelet count 126,000. Sodium 137, potassium 4, chlorides 108, CO2 21, anion gap normal, BUN 19, and creatinine 0.77. Lactic acid initially was 2.1. Repeat was 1.7. Testing for influenza, and coronavirus, we'll both negative. Pro-calcitonin level was very low at 0.08. Chest x-ray showed some right basilar atelectasis. I'm reevaluating this patient today on 09/14/2022 on a general medical floor. Patient is resting comfortably, up in the chair, on room air. Patient is telling me that he feels ready to go home. Denies any significant shortness of breath, productive cough, chest pain, hemoptysis. All vital signs remain stable. Patient's blood culture from 09/04/2022 showed a contaminant coag-negative staph. No new x-ray to review today. X-ray from 09/13/2022 shows mild right basilar infiltrate. CBC from today showed some leukocytosis with a WBC count of 15.9, hemoglobin 13, hematocrit 39, platelets 161,000. BMP was unremarkable despite some hyperglycemia. Procalcitonin was negative yesterday at 0.08. Patient is maintained on DuoNeb inhalation, Symbicort inhaler, and IV Solu- Medrol. Objective - Vital Signs Vital signs: Vital Signs Temp 97.4 F L 09/14/22 07:00 Pulse 80 09/14/22 12:14 Resp 16 09/14/22 07:00 BP 152/67 09/14/22 07:00 Pulse Ox 95 09/14/22 07:00 FiO2 Intake & Output 09/13/22 09/14/22 09/14/22 18:59 06:59 18:59 Intake Total 720 444 Balance 720 444 Intake: Oral 720 444 Other: Voiding Method Toilet # Voids 10 1 # Bowel Movements 1 - Exam GENERAL EXAM: Alert, active, comfortable in no apparent distress, on room air. HEAD: Normocephalic. EYES: Normal reaction of pupils, equal size. NOSE: Clear with pink turbinates. THROAT: No erythema or exudates. NECK: No masses, no JVD. CHEST: No chest wall deformity. LUNGS: Equal air entry with no crackles, rhonchi or dullness. There are some faint expiratory wheezes heard throughout. CVS: S1 and S2 normal with systolic murmur graded 2 out of 6, regular rhythm. ABDOMEN: No hepatosplenomegaly, normal bowel sounds, no guarding or rigidity. SPINE: No scoliosis or deformity SKIN: No rashes CENTRAL NERVOUS SYSTEM: No focal deficits, tone is normal in all 4 extremities. EXTREMITIES: There is some mild non-pitting edema. No clubbing, no cyanosis. Peripheral pulses are intact. - Labs CBC & Chem 7: 09/14/22 05:19 09/14/22 05:19 Labs: Abnormal Lab Results - Last 24 Hours (Table) 09/14/22 09/14/22 Range/Units 05:19 05:19 WBC 15.87 H (4.50-10.00) X 10*3/uL RBC 4.17 L (4.40-5.60) X 10*6/uL MPV 12.8 H (9.5-12.2) fL Immature Gran # 0.08 H (0.00-0.04) X 10*3/uL Neutrophils # 14.70 H (1.80-7.70) X 10*3/uL Lymphocytes # 0.74 L (0.90-5.00) X 10*3/uL Eosinophils # 0 L (0.04-0.35) X 10*3/uL Glucose 215 H (70-110) mg/dL Microbiology - Last 24 Hours (Table) 09/12/22 16:15 Blood Culture Gram Stain - Final Blood Blood Culture - Final Coagulase Negative Staph 09/12/22 16:00 Blood Culture - Preliminary Blood No Growth after 24 hours 09/12/22 16:15 Blood Culture - Final Blood Assessment and Plan Assessment: Acute exacerbation of COPD, and a patient with moderate COPD, and an FEV1 percent that is 72. History of stable CHF. History of CAD, with previous bypass grafting. History of hyperlipidemia. History of hypertension. History of sleep apnea syndrome, on home CPAP. History of chronic cataracts. History of hiatal hernia. Plan: Patient's medications, labs, x-ray from yesterday were all reviewed. Continue DuoNeb inhalations and Trelegy inhaler at home. Patient coag-negative staph in the blood was identified as a contaminant Antibiotics discontinued From a pulmonary standpoint patient is cleared for discharge. I have personally seen and examined the patient, performed the documentation and the assessment and plan as written. Number of minutes spent on the visit: 10.
--- NOTE | 2022-09-14 16:07 | P.PN ---
Subjective Progress Note Date: 09/14/22 Principal diagnosis: Positive blood culture Patient is a 82-year-old male with a past medical history significant for coronary artery disease sleep apnea congestive heart failure presented to the hospital for evaluation of increasing shortness of breath symptom has been getting worse for few days before presentation to the hospital, patient has been diagnosed with a COPD exacerbation and also have a positive blood culture finalized as staph epi. On today's evaluation that is 09/14/2022, the patient denies having any fever or any chills he seemed to be breathing more comfortably today continue to have a cough but not bringing up any sputum, the patient denies having any chest pain no nausea no vomiting no abdominal pain no diarrhea Objective - Vital Signs Vital signs: Vital Signs Temp 97.4 F L 09/14/22 07:00 Pulse 84 09/14/22 08:30 Resp 16 09/14/22 07:00 BP 152/67 09/14/22 07:00 Pulse Ox 95 09/14/22 07:00 FiO2 Intake & Output 09/13/22 09/14/22 09/14/22 18:59 06:59 18:59 Intake Total 720 444 Balance 720 444 Intake: Oral 720 444 Other: Voiding Method Toilet # Voids 10 1 # Bowel Movements 1 - Exam GENERAL DESCRIPTION: An elderly male lying in bed in no distress RESPIRATORY SYSTEM: Unlabored breathing , coarse breath Sounds bilaterally HEART: S1 S2 regular rate and rhythm , ABDOMEN: Soft , no tenderness EXTREMITIES: No edema feet - Labs CBC & Chem 7: 09/14/22 05:19 09/14/22 05:19 Labs: Abnormal Lab Results - Last 24 Hours (Table) 09/14/22 09/14/22 Range/Units 05:19 05:19 WBC 15.87 H (4.50-10.00) X 10*3/uL RBC 4.17 L (4.40-5.60) X 10*6/uL MPV 12.8 H (9.5-12.2) fL Immature Gran # 0.08 H (0.00-0.04) X 10*3/uL Neutrophils # 14.70 H (1.80-7.70) X 10*3/uL Lymphocytes # 0.74 L (0.90-5.00) X 10*3/uL Eosinophils # 0 L (0.04-0.35) X 10*3/uL Glucose 215 H (70-110) mg/dL Microbiology - Last 24 Hours (Table) 09/12/22 16:15 Blood Culture Gram Stain - Preliminary Blood Blood Culture - Preliminary Coagulase Negative Staph 09/12/22 16:00 Blood Culture - Preliminary Blood No Growth after 24 hours 09/12/22 16:15 Blood Culture - Final Blood Assessment and Plan (1) Positive blood culture Status: Acute Code(s): R78.81 - BACTEREMIA SNOMED Code(s): 246707925 Plan: 1patient with a positive blood culture with gram-positive cocci 2 out of 2 however patient is currently not running any fever or elevated white count chest x-ray was negative for any pneumonia with a question of possible skin contamination. 2blood culture has been repeated to document clearance. 3patient blood culture has been finalized as staph epi likely contamination vancomycin has been discontinued patient monitor closely off antibiotic therapy Time with Patient: Less than 30
== END 2022-09-14 14:42 | disposition home or self-care (01) ==
LOC: EC 12:28 → 6NMEDSUR 15:19
PROVIDERS: ADMIT Internal Medicine; ATTEND Internal Medicine
DX: J44.1 Chronic obstructive pulmonary disease with (acute) exacerbation (principal); J44.0 Chronic obstructive pulmonary disease with (acute) lower respiratory infection; J20.9 Acute bronchitis, unspecified; J96.11 Chronic respiratory failure with hypoxia; E87.20 Acidosis, unspecified; R78.81 Bacteremia; E11.65 Type 2 diabetes mellitus with hyperglycemia; I11.0 Hypertensive heart disease with heart failure; I50.32 Chronic diastolic (congestive) heart failure; J84.10 Pulmonary fibrosis, unspecified; I25.10 Atherosclerotic heart disease of native coronary artery without angina pectoris; I45.10 Unspecified right bundle-branch block; E78.5 Hyperlipidemia, unspecified; G47.33 Obstructive sleep apnea (adult) (pediatric); H26.9 Unspecified cataract; K44.9 Diaphragmatic hernia without obstruction or gangrene; F32.A Depression, unspecified; F41.9 Anxiety disorder, unspecified; E66.9 Obesity, unspecified; Z68.34 Body mass index [BMI] 34.0-34.9, adult; Z20.822 Contact with and (suspected) exposure to COVID-19; Z79.02 Long term (current) use of antithrombotics/antiplatelets; Z79.899 Other long term (current) drug therapy; Z79.51 Long term (current) use of inhaled steroids; Z79.52 Long term (current) use of systemic steroids; Z87.891 Personal history of nicotine dependence; Z95.1 Presence of aortocoronary bypass graft; Z90.49 Acquired absence of other specified parts of digestive tract; Z95.5 Presence of coronary angioplasty implant and graft; Z98.890 Other specified postprocedural states; Z82.3 Family history of stroke; Z82.49 Family history of ischemic heart disease and other diseases of the circulatory system; Z83.49 Family history of other endocrine, nutritional and metabolic diseases
CPT/HCPCS: 96376 ×2; 96365; 96366 ×2; 96367; 96372 ×2; 96375; 99285; 36415; 94640 ×5; 94760; 93005; 83880; 80053; 80048; 83605; 84484; 85025 ×2; 85610; 85730; 86140; 87040 ×2; 87502; 84145; 87635; 71046 ×2; G0378 ×3; J3370; J2920 ×3; J2930; J0456 ×2; J0696; J1644 ×3

== ENCOUNTER 2023-02-23 19:35 | Observation (INO) | payer MEDICARE ==
[2023-02-23] MEDS ORDERED: IPRATROPIUM-ALBUTEROL 3 ML NEB INHALATION STA (19:45)
--- NOTE | 2023-02-23 20:09 | ED ---
General Adult HPI - General Chief complaint: Shortness of Breath Stated complaint: Cough, Shortness of Breath Time Seen by Provider: 02/23/23 19:35 Source: EMS, RN notes reviewed Mode of arrival: EMS Limitations: no limitations - History of Present Illness Initial comments: 82-year-old male with a past medical history significant for COPD [facility] to the emergency department via EMS with a chief complaint of worsening shortness of breath. Patient reports worsening shortness of breath over 2 weeks time. He is complaining of a nonproductive cough and pleuritic chest pain. He reports feeling feverish 3 days ago. Denies recent sick contacts. Denies fever, congestion, sore throat, chest pain, palpitations, shortness of breath. He was given a DuoNeb treatment and route. - Related Data Home Medications Medication Instructions Recorded Confirmed Ezetimibe [Zetia] 10 mg PO DAILY 02/13/16 02/23/23 Nitroglycerin Sl Tabs [Nitrostat] 0.4 mg SL Q5M PRN 06/22/16 02/23/23 clonazePAM [KlonoPIN] 0.5 mg PO DAILY PRN 06/22/16 02/23/23 Clopidogrel [Plavix] 75 mg PO HS 10/20/19 02/23/23 Montelukast Sodium [Singulair] 10 mg PO DAILY 06/22/20 02/23/23 DULoxetine HCL [Cymbalta] 60 mg PO DAILY 07/19/21 02/23/23 Fluticasone/Umeclidin/Vilanter 1 puff INHALATION RT-DAILY 03/06/22 02/23/23 [Trelelizandro Ellipta 100-62.5-25] Ipratropium-Albuterol Nebulize 3 ml INHALATION RT-QID PRN 03/06/22 02/23/23 [Duoneb 0.5 mg-3 mg/3 ml Soln] Rosuvastatin Calcium 10 mg PO DAILY 09/12/22 02/23/23 atenoloL 25 mg PO DAILY 09/12/22 02/23/23 Psyllium Husk 100% [Metamucil 6 gm PO DAILY 11/09/22 02/23/23 Packet] Albuterol Inhaler [Ventolin Hfa 2 puff INHALATION RT-QID PRN 02/23/23 02/23/23 Inhaler] Baclofen 10 mg PO TID PRN 02/23/23 02/23/23 Omeprazole [PriLOSEC] 20 mg PO DAILY 02/23/23 02/23/23 predniSONE See Taper PO DIRECTED 02/23/23 02/23/23 Previous Rx's Medication Instructions Recorded Furosemide [Lasix] 20 mg PO DAILY #30 tab 07/13/22 Famotidine [Pepcid] 20 mg PO BID #60 tab 11/12/22 Tiotropium 2.5 Mcg/Puff [Spiriva 2 puff INHALATION RT-DAILY #1 each 11/12/22 Respimat 2.5 Mcg] Docusate [Colace] 100 mg PO BID 5 Days #10 cap 11/13/22 Allergies Allergy/AdvReac Type Severity Reaction Status Date / Time No Known Allergies Allergy Verified 02/23/23 21:45 Review of Systems ROS Statement: Those systems with pertinent positive or pertinent negative responses have been documented in the HPI. ROS Other: All systems not noted in ROS Statement are negative. Past Medical History Past Medical History: Coronary Artery Disease (CAD), Heart Failure, COPD, Hyperlipidemia, Sleep Apnea/CPAP/BIPAP Additional Past Medical History / Comment(s): COPD, obesity, coronary artery disease with previous bypass surgery, cataracts, hiatal hernia, obstructive sleep apnea with CPAP therapy. 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 Mother Family Medical History: CVA/TIA Additional Family Medical History / Comment(s): at age 99 3/4 from a stoke General Exam - General Exam Comments Initial Comments: General: Alert, in no acute distress Head: atraumatic normocephalic. Eyes PERRL, EOMI intact, mucous membranes moist Respiratory: Lungs clear to auscultation bilaterally, expiratory wheeze. Pt actively coughing. Cardiovascular: Heart rate regular rate and rhythm Abdominal: Soft without guarding or rebound Extremities: Normal inspection with full range of motion and normal capillary refill Neuroogic: alert and oriented 2 CN II-XII intact, able to ambulate with steady gait Skin: warm dry and intact with normal color Patient alert and oriented 2 which is baseline. Limitations: no limitations General appearance: alert, in no apparent distress Head exam: Present: atraumatic, normocephalic, normal inspection Eye exam: Present: normal appearance, PERRL, EOMI. Absent: scleral icterus, co njunctival injection, periorbital swelling ENT exam: Present: normal exam, mucous membranes moist Neck exam: Present: normal inspection. Absent: tenderness, meningismus, lymphadenopathy Respiratory exam: Present: normal lung sounds bilaterally. Absent: respiratory distress, wheezes, rales, rhonchi, stridor Cardiovascular Exam: Present: regular rate, normal rhythm, normal heart sounds. Absent: systolic murmur, diastolic murmur, rubs, gallop, clicks GI/Abdominal exam: Present: soft, normal bowel sounds. Absent: distended, tenderness, guarding, rebound, rigid Extremities exam: Present: normal inspection, full ROM, normal capillary refill. Absent: tenderness, pedal edema, joint swelling, calf tenderness Back exam: Present: normal inspection Neurological exam: Present: alert, oriented X3, CN II-XII intact Psychiatric exam: Present: normal affect, normal mood Skin exam: Present: warm, dry, intact, normal color. Absent: rash Course Vital Signs 02/23/23 02/23/23 02/23/23 19:39 20:58 21:09 Temperature 98.0 F Pulse Rate 85 79 85 Respiratory 18 28 H Rate Blood Pressure 117/69 O2 Sat by Pulse 97 Oximetry - Reevaluation(s) Reevaluation #1: 02/23/23 20:46 Patient reevaluated. Patient's at the bedside. She reports patient having a brief episode earlier today at approximately 2:30 PM where he stated that he didn't feel right. She reports that the patient was forgetting answers to questions regarding the conversation which she reports is abnormal for him. She reports patient is on Plavix. Reevaluation #2: 02/23/23 22:33 Case discussed with [facility] who agrees and accepts the patient for admission. EKG Findings - EKG Comments: EKG Findings:: I interpreted the following: EKG performed at 19:57. Rate 79 bpm and sinus rhythm left axis deviation with right bundle branch block. DE interval 172, QRS duration 142, QT/QTc 403/438 Medical Decision Making - Medical Decision Making Was pt. sent in by a medical professional or institution (, AAMIR, TROUBLE OPERATOR, urgent care, hospital, or fdc...) When possible be specific @ -[No] Did you speak to anyone other than the patient for history (EMS, parent, family, police, friend...)? What history was obtained from this source @ -EMS and Did you review nursing and triage notes (agree or disagree)? Why? @ -[I reviewed and agree with nursing and triage notes] Were old charts reviewed (outside hosp., previous admission, EMS record, old EKG, old radiological studies, urgent care reports/EKG's, fdc records)? Report findings @ -[No old charts were reviewed] Differential Diagnosis (chest pain, altered mental status, abdominal pain women, abdominal pain men, vaginal bleeding, weakness, fever, dyspnea, syncope, headache, dizziness, GI bleed, back pain, seizure, CVA, palpatations, mental health, musculoskeletal)? @ -[not applicable] EKG interpreted by me (3pts min.). @ -[As above] X-rays interpreted by me (1pt min.). @ -[None done] CT interpreted by me (1pt min.). @ -[None done] U/S interpreted by me (1pt. min.). @ -[None done] What testing was considered but not performed or refused? (CT, X-rays, U/S, labs)? Why? @ -[None] What meds were considered but not given or refused? Why? @ -[None] Did you discuss the management of the patient with other professionals (professionals i.e. , AAMIR, TROUBLE OPERATOR, lab, RT, psych nurse, family welfare social work professor, block cleaner, teacher, precinct commanding officer, protective services case worker)? Give summary @ -[No] Was smoking cessation discussed for >3mins.? @ -[No] Was critical care preformed (if so, how long)? @ -[No] Were there social determinants of health that impacted care today? How? (Homelessness, low income, unemployed, alcoholism, drug addiction, transportation, low edu. Level, literacy, decrease access to med. care, custodial, rehab)? @ -[No] Was there de-escalation of care discussed even if they declined (Discuss DNR or withdrawal of care, Hospice)? DNR status @ -[No] What co-morbidities impacted this encounter? (DM, HTN, Smoking, COPD, CAD, Cancer, CVA, ARF, Chemo, Hep., AIDS, mental health diagnosis, sleep apnea, morbid obesity)? @ -[None] Was patient admitted / discharged? Hospital course, mention meds given and route, prescriptions, significant lab abnormalities, going to OR and other pertinent info. @ -Admission. This is an 82-year-old male who presents to the emergency department with shortness of breath. Patient had a thorough history and physical exam performed on the ED. Heart rate regular rate and rhythm, lungs sounds reveal expiratory wheeze and are slightly diminished in the lower bilateral chaudhry. Patient had lab work and imaging performed which revealed: Labs WBC 13.9, hemoglobin 13.1 platelets 122 APTT 19.3 sodium 134 potassium 4.5 nightly 16, creatinine 0.75 BNP 374 Covid influenza and RSV negative Chest x-ray reveals cardiomegaly pulmonary vascular congestion and bilateral pleural effusions. I discussed the results in detail with the patient and the patient's who verbalized understanding all questions were addressed. They're agreeable with the plan for admission. Case discussed with [facility] who agrees and accepts the patient for admission with consult to neurology and pulmonology. Patient was given DuoNeb treatment with mild symptomatic relief. He was given Tessalon Perles. Case discussed with [facility]. Gutierrez [facility] who agrees with plan of care Undiagnosed new problem with uncertain prognosis? @ -[No] Drug Therapy requiring intensive monitoring for toxicity (Heparin, Nitro, Insulin, Cardizem)? @ -[No] Were any procedures done? @ -[No] Diagnosis/symptom? @ -COPD exacerbation - Shortness of Breath - Pleural effusions Acute, or Chronic, or Acute on Chronic? @ -Acute on Chronic Uncomplicated (without systemic symptoms) or Complicated (systemic symptoms)? @ -uncomplicated Side effects of treatment? @ -[No] Exacerbation, Progression, or Severe Exacerbation? @ -[No] Poses a threat to life or bodily function? How? (Chest pain, [place], [place], pneumonia, PE, COPD, DKA, ARF, appy, cholecystitis, CVA, Diverticulitis, Homicidal, Suicidal, threat to staff... and all critical care pts) @ -Low likelihood - Lab Data Result diagrams: 02/23/23 20:05 02/23/23 20:05 Lab Results 02/23/23 02/23/23 02/23/23 Range/Units 20:05 20:05 20:05 WBC 13.9 H (3.8-10.6) k/uL RBC 4.20 L (4.30-5.90) m/uL Hgb 13.1 (13.0-17.5) gm/dL Hct 39.2 (39.0-53.0) % MCV 93.4 (80.0-100.0) fL MCH 31.3 (25.0-35.0) pg MCHC 33.5 (31.0-37.0) g/dL RDW 13.4 (11.5-15.5) % Plt Count 122 L (150-450) k/uL MPV 10.9 Neutrophils % 91 % Lymphocytes % 4 % Monocytes % 3 % Eosinophils % 2 % Basophils % 0 % Neutrophils # 12.7 H (1.3-7.7) k/uL Lymphocytes # 0.6 L (1.0-4.8) k/uL Monocytes # 0.3 (0-1.0) k/uL Eosinophils # 0.2 (0-0.7) k/uL Basophils # 0.0 (0-0.2) k/uL PT 10.2 (9.0-12.0) sec INR 1.0 (<1.2) APTT 19.3 L (22.0-30.0) sec Sodium 134 L (137-145) mmol/L Potassium 4.5 (3.5-5.1) mmol/L Chloride 104 (98-107) mmol/L Carbon Dioxide 19 L (22-30) mmol/L Anion Gap 11 mmol/L BUN 16 (9-20) mg/dL Creatinine 0.75 (0.66-1.25) mg/dL Est GFR (CKD-EPI)AfAm >90 (>60 ml/min/1.73 sqM) Est GFR (CKD-EPI)NonAf 86 (>60 ml/min/1.73 sqM) Glucose 233 H (74-99) mg/dL POC Glucose (mg/dL) (70-110) mg/dL POC Glu [employer] ID Calcium 8.5 (8.4-10.2) mg/dL Total Bilirubin 0.6 (0.2-1.3) mg/dL AST 31 (17-59) U/L ALT 51 H (4-49) U/L Alkaline Phosphatase 78 (38-126) U/L NT-Pro-B Natriuret Pep pg/mL Total Protein 5.9 L (6.3-8.2) g/dL Albumin 3.6 (3.5-5.0) g/dL Influenza Type A (PCR) (Not Detectd) Influenza Type B (PCR) (Not Detectd) RSV (PCR) (Not Detectd) SARS-CoV-2 (PCR) (Not Detectd) 02/23/23 02/23/23 02/23/23 Range/Units 20:05 20:05 22:07 WBC (3.8-10.6) k/uL RBC (4.30-5.90) m/uL Hgb (13.0-17.5) gm/dL Hct (39.0-53.0) % MCV (80.0-100.0) fL MCH (25.0-35.0) pg MCHC (31.0-37.0) g/dL RDW (11.5-15.5) % Plt Count (150-450) k/uL MPV Neutrophils % % Lymphocytes % % Monocytes % % Eosinophils % % Basophils % % Neutrophils # (1.3-7.7) k/uL Lymphocytes # (1.0-4.8) k/uL Monocytes # (0-1.0) k/uL Eosinophils # (0-0.7) k/uL Basophils # (0-0.2) k/uL PT (9.0-12.0) sec INR (<1.2) APTT (22.0-30.0) sec Sodium (137-145) mmol/L Potassium (3.5-5.1) mmol/L Chloride (98-107) mmol/L Carbon Dioxide (22-30) mmol/L Anion Gap mmol/L BUN (9-20) mg/dL Creatinine (0.66-1.25) mg/dL Est GFR (CKD-EPI)AfAm (>60 ml/min/1.73 sqM) Est GFR (CKD-EPI)NonAf (>60 ml/min/1.73 sqM) Glucose (74-99) mg/dL POC Glucose (mg/dL) 202 H (70-110) mg/dL POC Glu [employer] ID Gregory Rutherford Calcium (8.4-10.2) mg/dL Total Bilirubin (0.2-1.3) mg/dL AST (17-59) U/L ALT (4-49) U/L Alkaline Phosphatase (38-126) U/L NT-Pro-B Natriuret Pep 374 pg/mL Total Protein (6.3-8.2) g/dL Albumin (3.5-5.0) g/dL Influenza Type A (PCR) Not Detected (Not Detectd) Influenza Type B (PCR) Not Detected (Not Detectd) RSV (PCR) Not Detected (Not Detectd) SARS-CoV-2 (PCR) Not Detected (Not Detectd) Disposition Clinical Impression: Shortness of breath, Pleural effusion, COPD (chronic obstructive pulmonary disease) Disposition: ADMITTED IP TO THIS HOSP Condition: Fair Time of Disposition: 21:12
[2023-02-23 20:20] LABS: Basophils % (A) 0 %; Eosinophils # (A) 0.2 k/uL (0-0.7); Eosinophils % (A) 2 %; HCT 39.2 % (39.0-53.0); HGB 13.1 gm/dL (13.0-17.5); Lymphocytes # (A) 0.6 k/uL (1.0-4.8); Lymphocytes % (A) 4 %; MCH 31.3 pg (25.0-35.0); MCHC 33.5 g/dL (31.0-37.0); MCV 93.4 fL (80.0-100.0); Mean Platelet Volume 10.9; Monocytes # (A) 0.3 k/uL (0-1.0); Monocytes % (A) 3 %; Neutrophils # (A) 12.7 k/uL (1.3-7.7); Neutrophils % (A) 91 %; Platelet Count 122 k/uL (150-450); RDW 13.4 % (11.5-15.5); WBC 13.9 k/uL (3.8-10.6)
--- NOTE | 2023-02-23 20:37 | XR ---
EXAMINATION TYPE: XR chest 2V DATE OF EXAM: 02/23/2023 8:22 PM COMPARISON: Chest radiographs from 11/09/2022 TECHNIQUE: XR chest 2V Frontal and lateral views of the chest. CLINICAL INDICATION:Male, 82 years old with history of SOB; FINDINGS: Lungs/Pleura: No evidence of focal consolidation or pneumothorax. Blunting of the costophrenic angles is present. Pulmonary vascularity: Pulmonary vascular congestion. Heart/mediastinum: Cardiomediastinal silhouette is enlarged and stable. Musculoskeletal: No acute osseous pathology. IMPRESSION: Cardiomegaly, pulmonary vascular congestion and bilateral pleural effusions. Correlate with BNP for c ongestive heart failure.
[2023-02-23 20:39] LABS: ALT 51 U/L (4-49); AST 31 U/L (17-59); African American GFR (CKD) >90 (>60 ml/min/1.73 sqM); Albumin 3.6 g/dL (3.5-5.0); Alkaline Phosphatase 78 U/L (38-126); Anion Gap 11 mmol/L; Blood Urea Nitrogen 16 mg/dL (9-20); Calcium 8.5 mg/dL (8.4-10.2); Carbon Dioxide 19 mmol/L (22-30); Chloride 104 mmol/L (98-107); Glucose 233 mg/dL (74-99); Non-African American GFR(CKD) 86 (>60 ml/min/1.73 sqM); Potassium 4.5 mmol/L (3.5-5.1); Sodium 134 mmol/L (137-145); Total Bilirubin 0.6 mg/dL (0.2-1.3); Total Protein 5.9 g/dL (6.3-8.2)
[2023-02-23 20:41] LABS: Prothrombin Time 10.2 sec (9.0-12.0)
[2023-02-23 20:42] LABS: Partial Thromboplastin Time 19.3 sec (22.0-30.0)
--- NOTE | 2023-02-23 22:05 | CT ---
EXAMINATION TYPE: CT brain wo con CT DLP: 1139.4 mGycm, Automated exposure control for dose reduction was used. DATE OF EXAM: 02/23/2023 9:54 PM COMPARISON: 06/15/2022 CLINICAL INDICATION:Male, 82 years old with history of AMS, AMS TECHNIQUE: Brain: Axial CT images of the brain were obtained with coronal and sagittal reformats created and rev iewed. Contrast used: None. Oral contrast used: None. FINDINGS: Brain: Extra-axial spaces: No abnormal extra-axial fluid collections. Ventricular system: Dilatation in proportion to cerebral atrophy. Cerebral parenchyma: Cerebral atrophy. No acute intraparenchymal hemorrhage or mass effect. The subramanian -white junction is well differentiated. Scattered hypoattenuating areas are seen within the white mat ter. Cerebellum: Unremarkable. Mass effect: No evidence of midline shift. Intracranial vasculature: Atherosclerotic calcifications of the intracranial vessels. Soft tissues: Normal. Calvarium/osseous structures: No depressed skull fracture. Paranasal sinuses and mastoid air cells: Mild scattered paranasal sinus disease. Visualized orbits: Senile calcific scleral plaques are present. IMPRESSION: 1. No acute intracranial process. 2. Nonspecific white matter changes, likely secondary to chronic small vessel ischemic disease.
[2023-02-23 22:11] LABS: Glucose,Whole Blood 202 mg/dL (70-110)
[2023-02-23] MEDS ORDERED: NALOXONE 0.4 MG/ML 1 ML VIAL IV PRN (22:30)
[2023-02-23] MEDS ORDERED: BENZONATATE 100 MG CAP PO STA (22:32)
[2023-02-24] MEDS: ACETAMINOPHEN TAB 325 MG TAB PO PRN ×2 (04:24→23:42)
[2023-02-24] MEDS ORDERED: IPRATROPIUM-ALBUTEROL 3 ML NEB INHALATION PRN (04:37)
[2023-02-24 04:43] LABS: Appearance,Urine Clear (Clear); Bilirubin,Urine Negative (Negative); Blood,Urine Negative (Negative); Color,Urine Yellow; Glucose,Urine (UA) 3+ (Negative); Ketones,Urine Negative (Negative); Leukocyte Esterase,Urine Negative (Negative); Nitrite,Urine Negative (Negative); PH, Urine 5.5 (5.0-8.0); Protein,Urine Negative (Negative); Specific Gravity,Urine 1.016 (1.001-1.035); Urobilinogen,Urine <2.0 mg/dL (<2.0)
[2023-02-24] MEDS: IPRATROPIUM-ALBUTEROL 3 ML NEB INHALATION SCH ×4 (07:45→20:01)
[2023-02-24] MEDS: FUROSEMIDE 20 MG TAB PO SCH ×2 (08:39→16:22)
[2023-02-24] MEDS: methylPREDNISolone SOD SUCCI 40 MG/ML 1 ML VIAL IV SCH ×2 (08:39→16:22)
[2023-02-24] MEDS: DOXYCYCLINE 100 MG CAP PO SCH ×2 (09:49→21:24)
--- NOTE | 2023-02-24 10:45 | P.CNPUL ---
History of Present Illness Consult date: 02/24/23 Requesting physician: Mey Alaniz Reason for consult: dyspnea Chief complaint: Shortness of breath, cough, congestion History of present illness: This is a pleasant 82-year-old male patient with a history of severe COPD, O2 dependent, prednisone dependent, maintained on 10 mg of prednisone daily, history of underlying coronary artery disease and previous stent placement, history of diastolic congestive heart failure, hyperlipidemia, generalized anxiety disorder, morbid obesity, obstructive sleep apnea on CPAP. He presented here to the emergency room yesterday with a four-day history of increasing shortness of breath, cough and congestion. No fever or chills. Chest x-ray shows evidence of cardiomegaly with pulmonary vascular congestion and bilateral pleural effusions. Computed tomography scan of the brain revealed no acute intracranial process. White count 13.9. Hemoglobin 13.1. Platelets 122. INR 1.0. Sodium 134. Potassium 3.5. Bicarb 19. BUN 16. Creatinine 0.75. Glu cose 233. Urinalysis clean. Influenza screen negative. RSV screen negative. COVID-19 screen negative. He is seen today in consultation on the regular medical floor. Currently sitting up in bed. Awake and alert in no acute distress. Maintaining O2 saturations in the mid 90s on room air. He's afebrile. Hemodynamically stable. Review of Systems REVIEW OF SYSTEMS: CONSTITUTIONAL: Denies any recent significant weight loss or weight gain. EYES: Denies change in vision. EARS, NOSE, MOUTH, THROAT: Denies headaches, denies sore throat. CARDIOVASCULAR: Denies chest pain, palpitations or syncopal episodes. RESPIRATORY: Positive for shortness of breath, cough, congestion no hemoptysis. GASTROINTESTINAL: Denies change in appetite, denies abdominal pain GENITOURINARY: Denies hematuria, denies infections. MUSKULOSKELETAL: Denies pain, denies swelling. INTEGUMENTARY: Denies rash, denies eczema. NEUROLOGICAL: Denies recent memory loss, no recent seizure activity. PSYCHIATRIC: Denies anxiety, denies depression. HEMATOLOGIC/LYMPHATIC: Denies anemia, denies enlarged lymph nodes. Past Medical History Past Medical History: Coronary Artery Disease (CAD), Heart Failure, COPD, Hyperlipidemia, Sleep Apnea/CPAP/BIPAP Additional Past Medical History / Comment(s): COPD, obesity, coronary artery disease with previous bypass surgery, cataracts, hiatal hernia, obstructive sleep apnea with CPAP therapy. 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 LIVES WITH HIS OF 61 YEARS IN A SINGLE LEVEL HOME THAT HAS 4 PORCH STEPS. NO OUTSIDE SERVICES RECIEVED. HAS A NEBULIZER. NO SERVICE IN PAST. RETIRED FROM [employer]. THEY HAVE 1 PET DOG. Smoking Status: Former smoker Past Alcohol Use History: Daily Additional Past Alcohol Use History / Comment(s): Pt states he quit smoking almost 35 years ago. Smoked cigars. Has one scotch drink a week Past Drug Use History: None Reported Additional Drug Use History / Comment(s): QUIT MANY YEARS AGO. quit cigars 35 years ago - Past Family History Father Family Medical History: Hyperlipidemia, Myocardial Infarction ([place]) Additional Family Medical History / Comment(s): father and brothers(mi's in their 40's and 50's). Mother Family Medical History: CVA/TIA Additional Family Medical History / Comment(s): at age 99 3/4 from a [facility]oke Medications and Allergies Home Medications Medication Instructions Recorded Confirmed Type Ezetimibe [Zetia] 10 mg PO DAILY 02/13/16 02/23/23 History Nitroglycerin Sl Tabs [Nitrostat] 0.4 mg SL Q5M PRN 06/22/16 02/23/23 History clonazePAM [KlonoPIN] 0.5 mg PO DAILY PRN 06/22/16 02/23/23 History Clopidogrel [Plavix] 75 mg PO HS 10/20/19 02/23/23 History Montelukast Sodium [Singulair] 10 mg PO DAILY 06/22/20 02/23/23 History DULoxetine HCL [Cymbalta] 60 mg PO DAILY 07/19/21 02/23/23 History Fluticasone/Umeclidin/Vilanter 1 puff INHALATION RT-DAILY 03/06/22 02/23/23 History [Trelegy Ellipta 100-62.5-25] Ipratropium-Albuterol Nebulize 3 ml INHALATION RT-QID PRN 03/06/22 02/23/23 History [Duoneb 0.5 mg-3 mg/3 ml Soln] Furosemide [Lasix] 20 mg PO DAILY #30 tab 07/13/22 02/23/23 Rx Rosuvastatin Calcium 10 mg PO DAILY 09/12/22 02/23/23 History atenoloL 25 mg PO DAILY 09/12/22 02/23/23 History Psyllium Husk 100% [Metamucil 6 gm PO DAILY 11/09/22 02/23/23 History Packet] Famotidine [Pepcid] 20 mg PO BID #60 tab 11/12/22 02/23/23 Rx Tiotropium 2.5 Mcg/Puff [Spiriva 2 puff INHALATION RT-DAILY #1 each 11/12/22 02/23/23 Rx Respimat 2.5 Mcg] Docusate [Colace] 100 mg PO BID 5 Days #10 cap 11/13/22 02/23/23 Rx Albuterol Inhaler [Ventolin Hfa 2 puff INHALATION RT-QID PRN 02/23/23 02/23/23 History Inhaler] Baclofen 10 mg PO TID PRN 02/23/23 02/23/23 History Omeprazole [PriLOSEC] 20 mg PO DAILY 02/23/23 02/23/23 History predniSONE See Taper PO DIRECTED 02/23/23 02/23/23 History Allergies Allergy/AdvReac Type Severity Reaction Status Date / Time No Known Allergies Allergy Verified 02/23/23 21:45 Physical Exam Vitals: Vital Signs Temp Pulse Pulse Resp BP BP Pulse Ox 02/24/23 08:06 76 02/24/23 08:00 73 17 02/24/23 07:45 82 96 02/24/23 07:00 97.7 F 73 17 137/74 96 02/24/23 05:21 72 20 139/67 98 02/24/23 03:45 68 20 122/50 02/24/23 01:00 77 168/75 98 02/23/23 22:00 77 18 97 06/10/23 21:09 85 02/23/23 21:00 79 18 93 L 02/23/23 20:58 79 28 H 02/23/23 20:09 80 18 93 L 02/23/23 19:39 98.0 F 85 18 117/69 97 FiO2 02/24/23 08:06 02/24/23 08:00 02/24/23 07:45 21 02/24/23 07:00 02/24/23 05:21 02/24/23 03:45 02/24/23 01:00 02/23/23 22:00 02/23/23 21:09 02/23/23 21:00 02/23/23 20:58 02/23/23 20:09 02/23/23 19:39 Intake and Output 02/23/23 02/24/23 02/24/23 22:59 06:59 14:59 Intake Total 240 Balance 240 Intake: Oral 240 Other: Voiding Method Toilet # Voids 1 Weight 102.058 kg 102.058 kg GENERAL EXAM: Alert, pleasant 82-year-old obese male, on room air, comfortable in no apparent distress. HEAD: Normocephalic. EYES: Normal reaction of pupils, equal size. NOSE: Clear with pink turbinates. THROAT: No erythema or exudates. NECK: No masses, no JVD. CHEST: No chest wall deformity. LUNGS: Equal air entry with bilateral end expiratory wheeze, crackles in the posterior bases. CVS: S1 and S2 normal with no audible murmur, regular rhythm. ABDOMEN: No hepatosplenomegaly, normal bowel sounds, no guarding or rigidity. SPINE: No scoliosis or deformity SKIN: No rashes CENTRAL NERVOUS SYSTEM: No focal deficits, tone is normal in all 4 extremities. EXTREMITIES: There is 1-2+ peripheral edema. No clubbing, no cyanosis. Peripheral pulses are intact. Results - Laboratory Findings CBC and BMP: 02/23/23 20:05 02/23/23 20:05 PT/INR, D-dimer PT 10.2 sec (9.0-12.0) 02/23/23 20:05 INR 1.0 (<1.2) 02/23/23 20:05 Abnormal lab findings: Abnormal Labs 02/23/23 02/23/23 02/23/23 20:05 20:05 20:05 WBC 13.9 H RBC 4.20 L Plt Count 122 L Neutrophils # 12.7 H Lymphocytes # 0.6 L APTT 19.3 L Sodium 134 L Carbon Dioxide 19 L Glucose 233 H POC Glucose (mg/dL) ALT 51 H Total Protein 5.9 L Urine Glucose (UA) 02/23/23 02/24/23 22:07 04:32 WBC RBC Plt Count Neutrophils # Lymphocytes # APTT Sodium Carbon Dioxide Glucose POC Glucose (mg/dL) 202 H ALT Total Protein Urine Glucose (UA) 3+ H - Diagnostic Findings Chest x-ray: image reviewed Assessment and Plan Assessment: Acute exacerbation of chronic diastolic congestive heart failure Acute exacerbation of chronic obstructive pulmonary disease Coronary arteriosclerosis with previous stent placement Dyslipidemia Generalized anxiety disorder Obesity with BMI of 34.2 Obstructive sleep apnea syndrome, on CPAP Plan: The patient was seen and evaluated Chest x-ray, labs and medications reviewed Add DuoNeb inhalations, Symbicort, Solu-Medrol Add Lasix 20 mg by mouth twice a day Check a pro-calcitonin Empiric antibiotics in the form of doxycycline Increase his activity as tolerated We will continue to follow and make further recommendations based on his clinical status I have personally seen and examined the patient, performed the documentation and the assessment and plan as written. Number of minutes spent on the visit: 20.
[2023-02-24] MEDS ORDERED: BACLOFEN 10 MG TAB PO PRN (18:01)
[2023-02-24] MEDS ORDERED: clonazePAM 0.5 MG TAB PO PRN (18:01)
--- NOTE | 2023-02-24 18:04 | P.HPIM ---
History of Present Illness H&P Date: 02/24/23 Chief Complaint: Worsening shortness of breath 82-year-old male patient with a history of severe COPD, O2 dependent, prednisone dependent, maintained on 10 mg of prednisone daily, history of underlying coronary artery disease and previous stent placement, history of diastolic congestive heart failure, hyperlipidemia, generalized anxiety disorder, morbid obesity, obstructive sleep apnea on CPAP. He presented here to the emergency room yesterday with a four-day history of increasing shortness of breath, cough and congestion. No fever or chills. Chest x-ray shows evidence of cardiomegaly with pulmonary vascular congestion and bilateral pleural effusions. Computed to mography scan of the brain revealed no acute intracranial process. White count 13.9. Hemoglobin 13.1. Platelets 122. INR 1.0. Sodium 134. Potassium 3.5. Bicarb 19. BUN 16. Creatinine 0.75. Glucose 233. Urinalysis clean. Influenza screen negative. RSV screen negative. COVID-19 screen negative. He is seen today in consultation on the regular medical [facility] Review of Systems REVIEW OF SYSTEMS: CONSTITUTIONAL: No fever, no malaise, no fatigue. HEENT: No recent visual problems or hearing problems. Denied any sore throat. CARDIOVASCULAR: No chest pain, orthopnea, PND, no palpitations, no syncope. PULMONARY: Worsening shortness of breath, no cough, no hemoptysis. GASTROINTESTINAL: No diarrhea, no nausea, no vomiting, no abdominal pain. NEUROLOGICAL: No headaches, no weakness, no numbness. HEMATOLOGICAL: Denies any bleeding or petechiae. GENITOURINARY: Denies any burning micturition, frequency, or urgency. MUSCULOSKELETAL/RHEUMATOLOGICAL: Denies any joint pain, swelling, or any muscle pain. ENDOCRINE: Denies any polyuria or polydipsia. The rest of the 14-point review of systems is negative. Past Medical History Past Medical History: Coronary Artery Disease (CAD), Heart Failure, COPD, Hyperlipidemia, Sleep Apnea/CPAP/BIPAP Additional Past Medical History / Comment(s): COPD, obesity, coronary artery disease with previous bypass surgery, cataracts, hiatal hernia, obstructive sleep apnea with CPAP therapy. 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 LIVES WITH HIS OF 61 YEARS IN A SINGLE LEVEL HOME THAT HAS [address] STEPS. NO OUTSIDE SERVICES RECIEVED. HAS A NEBULIZER. NO SERVICE IN PAST. RETIRED FROM [employer]. THEY HAVE 1 PET DOG. Smoking Status: Former smoker Past Alcohol Use History: Daily Additional Past Alcohol Use History / Comment(s): Pt states he quit smoking almost 35 years ago. Smoked cigars. Has one scotch drink a week Past Drug Use History: None Reported Additional Drug Use History / Comment(s): QUIT MANY YEARS AGO. quit cigars 35 years ago - Past Family History Father Family Medical History: Hyperlipidemia, Myocardial Infarction ([place]) Additional Family Medical History / Comment(s): father and brothers(mi's in their 40's and 50's). Mother Family Medical History: CVA/TIA Additional Family Medical History / Comment(s): at age 99 3/4 from [facility] Medications and Allergies Home Medications Medication Instructions Recorded Confirmed Type Ezetimibe [Zetia] 10 mg PO DAILY 02/13/16 02/23/23 History Nitroglycerin Sl Tabs [Nitrostat] 0.4 mg SL Q5M PRN 06/22/16 02/23/23 History clonazePAM [KlonoPIN] 0.5 mg PO DAILY PRN 06/22/16 02/23/23 History Clopidogrel [Plavix] 75 mg PO HS 10/20/19 02/23/23 History Montelukast Sodium [Singulair] 10 mg PO DAILY 06/22/20 02/23/23 History DULoxetine HCL [Cymbalta] 60 mg PO DAILY 07/19/21 02/23/23 History Fluticasone/Umeclidin/Vilanter 1 puff INHALATION RT-DAILY 03/06/22 02/23/23 History [Trelegy Ellipta 100-62.5-25] Ipratropium-Albuterol Nebulize 3 ml INHALATION RT-QID PRN 03/06/22 02/23/23 History [Duoneb 0.5 mg-3 mg/3 ml Soln] Furosemide [Lasix] 20 mg PO DAILY #30 tab 07/13/22 02/23/23 Rx Rosuvastatin Calcium 10 mg PO DAILY 09/12/22 02/23/23 History atenoloL 25 mg PO DAILY 09/12/22 02/23/23 History Psyllium Husk 100% [Metamucil 6 gm PO DAILY 11/09/22 02/23/23 History Packet] Famotidine [Pepcid] 20 mg PO BID #60 tab 11/12/22 02/23/23 Rx Tiotropium 2.5 Mcg/Puff [Spiriva 2 puff INHALATION RT-DAILY #1 each 11/12/22 02/23/23 Rx Respimat 2.5 Mcg] Docusate [Colace] 100 mg PO BID 5 Days #10 cap 11/13/22 02/23/23 Rx Albuterol Inhaler [Ventolin Hfa 2 puff INHALATION RT-QID PRN 02/23/23 02/23/23 History Inhaler] Baclofen 10 mg PO TID PRN 02/23/23 02/23/23 History Omeprazole [PriLOSEC] 20 mg PO DAILY 02/23/23 02/23/23 History predniSONE See Taper PO DIRECTED 02/23/23 02/23/23 History Allergies Allergy/AdvReac Type Severity Reaction Status Date / Time No Known Allergies Allergy Verified 02/23/23 21:45 Physical Exam Vitals: Vital Signs Temp Pulse Pulse Resp BP BP Pulse Ox 02/24/23 16:01 76 02/24/23 15:47 76 02/24/23 14:32 98.3 F 83 18 131/65 97 02/24/23 14:00 73 17 02/24/23 12:06 76 02/24/23 11:53 76 02/24/23 08:06 76 02/24/23 08:00 73 17 02/24/23 07:45 82 96 02/24/23 07:00 97.7 F 73 17 137/74 96 02/24/23 05:21 72 20 139/67 98 02/24/23 03:45 68 20 122/50 02/24/23 01:00 77 168/75 98 02/23/23 22:00 77 18 97 02/23/23 21:09 85 02/23/23 21:00 79 18 93 L 02/23/23 20:58 79 28 H 02/23/23 20:09 80 18 93 L 02/23/23 19:39 98.0 F 85 18 117/69 97 FiO2 02/24/23 16:01 02/24/23 15:47 02/24/23 14:32 02/24/23 14:00 02/24/23 12:06 02/24/23 11:53 02/24/23 08:06 02/24/23 08:00 02/24/23 07:45 21 02/24/23 07:00 02/24/23 05:21 02/24/23 03:45 02/24/23 01:00 02/23/23 22:00 02/23/23 21:09 02/23/23 21:00 02/23/23 20:58 02/23/23 20:09 02/23/23 19:39 Intake and Output 02/24/23 02/24/23 02/24/23 06:59 14:59 22:59 Intake Total 480 Balance 480 Intake: Oral 480 Other: Voiding Method Toilet # Voids 1 2 Weight 102.058 kg PHYSICAL EXAMINATION: GENERAL: The patient is alert and oriented x3, not in any acute distress. Well developed, well nourished. HEENT: Pupils are round and equally reacting to light. EOMI. No scleral icterus. No conjunctival pallor. Normocephalic, atraumatic. No pharyngeal erythema. No thyromegaly. CARDIOVASCULAR: S1 and S2 present. No murmurs, rubs, or gallops. PULMONARY: Diffuse bilateral wheezing or crackles. ABDOMEN: Soft, nontender, nondistended, normoactive bowel sounds. No palpable organomegaly. MUSCULOSKELETAL: No joint swelling or deformity. EXTREMITIES: No cyanosis, clubbing, or pedal edema. NEUROLOGICAL: Gross neurological examination did not reveal any focal deficits. SKIN: No rashes. Results CBC & Chem 7: 02/23/23 20:05 02/23/23 20:05 Labs: Abnormal Lab Results - Last 24 Hours (Table) 06/10/23 06/10/23 06/10/23 Range/Units 20:05 20:05 20:05 WBC 13.9 H (3.8-10.6) k/uL RBC 4.20 L (4.30-5.90) m/uL Plt Count 122 L (150-450) k/uL Neutrophils # 12.7 H (1.3-7.7) k/uL Lymphocytes # 0.6 L (1.0-4.8) k/uL APTT 19.3 L (22.0-30.0) sec Sodium 134 L (137-145) mmol/L Carbon Dioxide 19 L (22-30) mmol/L Glucose 233 H (74-99) mg/dL POC Glucose (mg/dL) (70-110) mg/dL ALT 51 H (4-49) U/L Total Protein 5.9 L (6.3-8.2) g/dL Urine Glucose (UA) (Negative) 02/23/23 02/24/23 Range/Units 22:07 04:32 WBC (3.8-10.6) k/uL RBC (4.30-5.90) m/uL Plt Count (150-450) k/uL Neutrophils # (1.3-7.7) k/uL Lymphocytes # (1.0-4.8) k/uL APTT (22.0-30.0) sec Sodium (137-145) mmol/L Carbon Dioxide (22-30) mmol/L Glucose (74-99) mg/dL POC Glucose (mg/dL) 202 H (70-110) mg/dL ALT (4-49) U/L Total Protein (6.3-8.2) g/dL Urine Glucose (UA) 3+ H (Negative) Thrombosis Risk Factor Assmnt - Choose All That Apply Any of the Below Risk Factors Present?: Yes Each Factor Represents 1 point: Abnormal pulmonary function (COPD), Obesity (BMI >25) Other Risk Factors: Yes Each Risk Factor Represents 3 Points: Age 75 years or older Other congenital or acquired thrombophilia - If yes, enter type in comment: No Thrombosis Risk Factor Assessment Total Risk Factor Score: 5 Thrombosis Risk Factor Assessment Level: High Risk Assessment and Plan Assessment: 1. Acute exacerbation diastolic CHF - Patient has been placed on Lasix; monitor strict CITLALI's, daily weights, low salt and fluid restricted diet 2. Acute exacerbation COPD - Patient has been placed on IV Solu-Medrol along with DuoNeb nebulizer treatments; has been evaluated by pulmonary service and Symbicort is admitted - Patient is placed on empiric antibiotic therapy in form of doxycycline - We will continue with home dose of severe 10 mg daily 3. Hyperlipidemia; Zetia 10 mg daily along with Crestor 10 mg daily 4. Obstructive sleep apnea; continue with BiPAP settings at home 5. Generalized anxiety disorder; Klonopin 0.5 mg daily 6. Hypertension; atenolol 25 mg daily 7. Coronary artery disease; stable on aspirin, statins and beta blockers 8. Chronic back pain; continue with home dose of Cymbalta and baclofen 10 mg 3 times a day
[2023-02-24] MEDS ORDERED: DEXTROSE 50% SYRINGE 50 ML IVP PRN ×2 (18:56)
[2023-02-24] MEDS: SYMBICORT 160-4.5 MCG INHALER INHALATION SCH (20:01)
[2023-02-24 20:56] LABS: Glucose,Whole Blood 286 mg/dL (70-110)
[2023-02-24] MEDS ORDERED: CLOPIDOGREL 75 MG TAB PO SCH (21:00)
[2023-02-24] MEDS ORDERED: MELATONIN 5 MG TABLET PO SCH (21:00)
[2023-02-24] MEDS: INSULIN ASPART (NovoLOG) 100 UNIT/ML VIAL SQ SCH (21:24)
[2023-02-24] MEDS: FAMOTIDINE 20 MG TAB PO SCH (21:24)
[2023-02-24] MEDS: DOCUSATE 100 MG CAP PO SCH (21:24)
[2023-02-25] MEDS: methylPREDNISolone SOD SUCCI 40 MG/ML 1 ML VIAL IV SCH ×2 (00:09→10:15)
[2023-02-25 06:20] LABS: Glucose,Whole Blood 189 mg/dL (70-110)
[2023-02-25] MEDS: INSULIN ASPART (NovoLOG) 100 UNIT/ML VIAL SQ SCH ×2 (06:44→13:29)
[2023-02-25 06:55] LABS: African American GFR (CKD) >90 (>60 ml/min/1.73 sqM); Anion Gap 9 mmol/L; Blood Urea Nitrogen 19 mg/dL (9-20); Calcium 9.1 mg/dL (8.4-10.2); Carbon Dioxide 25 mmol/L (22-30); Chloride 102 mmol/L (98-107); Glucose 198 mg/dL (74-99); Non-African American GFR(CKD) 86 (>60 ml/min/1.73 sqM); Potassium 4.7 mmol/L (3.5-5.1); Sodium 136 mmol/L (137-145)
[2023-02-25] MEDS: IPRATROPIUM-ALBUTEROL 3 ML NEB INHALATION SCH ×2 (08:21→11:44)
[2023-02-25] MEDS: SYMBICORT 160-4.5 MCG INHALER INHALATION SCH (08:21)
[2023-02-25 08:31] VITALS: BP 131/76; RESP 17; TEMP 97.6
[2023-02-25] MEDS ORDERED: atenoloL 25 MG TAB PO SCH (09:00)
[2023-02-25] MEDS ORDERED: DULoxetine HCL 60 MG CAPSULE.DR PO SCH (09:00)
[2023-02-25] MEDS ORDERED: ATORVASTATIN 20 MG TAB PO SCH (09:00)
[2023-02-25] MEDS ORDERED: MONTELUKAST 10 MG TAB PO SCH (09:00)
[2023-02-25] MEDS ORDERED: PSYLLIUM HUSK 100% 6 GM PACKET PO SCH (09:00)
[2023-02-25] MEDS ORDERED: PANTOPRAZOLE 40 MG TABLET PO SCH (09:00)
[2023-02-25] MEDS ORDERED: EZETIMIBE 10 MG TAB PO SCH (09:00)
[2023-02-25] MEDS: DOXYCYCLINE 100 MG CAP PO SCH (10:04)
[2023-02-25] MEDS: FUROSEMIDE 20 MG TAB PO SCH (10:04)
[2023-02-25] MEDS: DOCUSATE 100 MG CAP PO SCH (10:05)
[2023-02-25] MEDS: FAMOTIDINE 20 MG TAB PO SCH (10:05)
--- NOTE | 2023-02-25 11:43 | P.PN ---
Subjective Progress Note Date: 02/25/23 This is a pleasant 82-year-old male patient with a history of severe COPD, O2 dependent, prednisone dependent, maintained on 10 mg of prednisone daily, history of underlying coronary artery disease and previous stent placement, history of diastolic congestive heart failure, hyperlipidemia, generalized anx iety disorder, morbid obesity, obstructive sleep apnea on CPAP. He presented here to the emergency room yesterday with a four-day history of increasing shortness of breath, cough and congestion. No fever or chills. Chest x-ray shows evidence of cardiomegaly with pulmonary vascular congestion and bilateral pleural effusions. Computed tomography scan of the brain revealed no acute intracranial process. White count 13.9. Hemoglobin 13.1. Platelets 122. INR 1.0. Sodium 134. Potassium 3.5. Bicarb 19. BUN 16. Creatinine 0.75. Glucose 233. Urinalysis clean. Influenza screen negative. RSV screen negative. COVID-19 screen negative. He is seen today in consultation on the regular medical floor. Currently sitting up in bed. Awake and alert in no acute distress. Maintaining O2 saturations in the mid 90s on room air. He's afebrile. Hemodynamically stable. The patient is seen today 02/25/2023 in follow-up on the regular medical floor. He is currently resting comfortably in bed. Awake and alert in no acute distress. Maintaining good O2 saturations in the mid 90s on room air. He's afebrile. Sodium 136. Potassium 4.7. Bicarb 25. BUN 19. Creatinine 0.75. ProCalcitonin was 0.09. Urinalysis clean. He remains on DuoNeb inhalations, Symbicort, IV Solu-Medrol. Empiric antibiotics in the form of Vibramycin. Objective - Vital Signs Vital signs: Vital Signs Temp 97.6 F 02/25/23 07:00 Pulse 68 02/25/23 08:31 Resp 17 02/25/23 07:00 BP 131/76 02/25/23 07:00 Pulse Ox 97 02/25/23 08:22 FiO2 21 02/24/23 07:45 Intake & Output 02/24/23 02/25/23 02/25/23 18:59 06:59 18:59 Intake Total 720 298 Balance 720 298 Intake: Oral 720 298 Other: Voiding Method Toilet Toilet # Voids 2 2 # Bowel Movements 1 - Exam GENERAL EXAM: Alert, 82-year-old male, on room air, comfortable in no apparent distress. HEAD: Normocephalic. EYES: Normal reaction of pupils, equal size. NOSE: Clear with pink turbinates. THROAT: No erythema or exudates. NECK: No masses, no JVD. CHEST: No chest wall deformity. LUNGS: Equal air entry with bilateral end expiratory wheeze, crackles in the posterior bases. CVS: S1 and S2 normal with no audible murmur, regular rhythm. ABDOMEN: No hepatosplenomegaly, normal bowel sounds, no guarding or rigidity. SPINE: No scoliosis or deformity SKIN: No rashes CENTRAL NERVOUS SYSTEM: No focal deficits, tone is normal in all 4 extremities. EXTREMITIES: There is 1-2+ peripheral edema. No clubbing, no cyanosis. Peripheral pulses are intact. - Labs CBC & Chem 7: 02/23/23 20:05 02/25/23 05:53 Labs: Abnormal Lab Results - Last 24 Hours (Table) 02/24/23 02/25/23 02/25/23 Range/Units 20:54 05:53 05:53 Sodium 136 L (137-145) mmol/L Glucose 198 H (74-99) mg/dL POC Glucose (mg/dL) 286 H (70-110) mg/dL Hemoglobin A1c 7.1 H (<=6.0) % 02/25/23 Range/Units 06:18 Sodium (137-145) mmol/L Glucose (74-99) mg/dL POC Glucose (mg/dL) 189 H (70-110) mg/dL Hemoglobin A1c (<=6.0) % Assessment and Plan Assessment: Acute exacerbation of chronic diastolic congestive heart failure Acute exacerbation of chronic obstructive pulmonary disease Coronary arteriosclerosis with previous stent placement Dyslipidemia Generalized anxiety disorder Obesity with BMI of 34.2 Obstructive sleep apnea syndrome, on CPAP Plan: The patient was seen and evaluated Labs and medications reviewed Pro-calcitonin within normal limits Discontinue doxycycline Cleared for discharge from the pulmonary standpoint Follow-up in our office in 1 week I have personally seen and examined the patient, performed the documentation and the assessment and plan as written. Number of minutes spent on the visit: 10.
[2023-02-25 11:57] VITALS: PULSE 68
[2023-02-25 12:49] LABS: Glucose,Whole Blood 180 mg/dL (70-110)
--- NOTE | 2023-02-25 13:54 | P.DS ---
Providers Date of admission: 02/23/23 22:30 Attending physician: Mey Alaniz Consults: 02/23/23 22:30 Consult Physician Routine Consulting Provider: Krys Abrams Consult Reason/Comments: Pleural effusions Do you want consulting provider notified?: Yes Primary care physician: Doretha Rose Hospital Course: Acute exacerbation diastolic CHF Acute exacerbation COPD Acute on chronic hypoxic respiratory failure secondary to above Hyperlipidemia Moderate aortic stenosis Obstructive sleep apnea with CPAP use Generalized anxiety disorder Hypertension Coronary artery disease prior PCI and CABG Chronic back pain Former smoker Full Code Discharge disposition Patient is stable for discharge home. Patient to continue on same home inhalers. Continue on oral prednisone taper, instructed to discontinue prior taper and begin the new one sent in. Discharged on oral azithromycin for 3 day course. Continue on oxygen as needed at home. Follow up with pulmonary on discharge in 1 week, follow up with PCP Dr. Doretha Rose in 1 to 2 days. Hospital Course This is an 82 year old male with medical history of heart failure, COPD, hyperlipidemia, hypertension, sleep apnea with CPAP use, coronary artery disease with prior PCI and CABG, former smoker and chronic hypoxic respiratory failure. Patient has been on oral steroid taper from his surgeon chief outpatient and comes in to the hospital with worsening shortness of breath, cough and pleuritic chest pain over the last 2 weeks. Patient denies any sick contacts does report feeling feverish at home. Denying any chest pain, no weakness. He has nonproductive cough. Patient was admitted for COPD exacerbation and pulmonary consulted. Chest xray shows cardiomegaly, pulmonary vascular congestion, and bilateral pleural effusions. proBNP was 374. Patient does taken lasix 20 mg daily at home which was increased to 20 mg twice a day this hospital stay and recommend to continue on discharge. Patient was given empiric antibiotics with oral doxycycline, however a procalcitonin level was negative at 0.09. Regardless would recommend 3 days of oral azithromycin on discharge. Patient was negative for influenza, RSV, and COVID. There was also a brain CT done on admission with concern for altered mental status, which reveals no acute intracranial procress. There is nonspecific white matter changes, likely secondary to chronic small vessel ischemic disease. Patient is alert x 3 at the time of assessment, denies shortness of breath, continues with some fatigue and has non productive cough. Has some coarse scattered ronchi throughout, there is no wheezing or crackles noted on exam. Patient is afebrile and currently 95% on room air. He has improved with IV steroids and duonebs and has continued on same home inhalers. Pulmonary has cleared patient for DC to follow up in the office in 1 week. Please see medication reconciliation for a list of current medication. Thank you for allowing us to participate in the care of this patient. The impression and plan of care has been dictated by Karolina Joseph, Nurse Practitioner as directed. Dr. Pia MD I have performed a history and physical examination and medical decision making of this patient, discussed the same with the dictator, and agree with the dictators assessment and plan as written, documented as a scribe. Based on total visit time, I have performed more than 50% of this visit. Patient Condition at Discharge: Fair Plan - Discharge Summary Discharge Rx Participant: No New Discharge Prescriptions: New Furosemide [Lasix] 20 mg PO BID@0900,1600 #60 tab Azithromycin [Zithromax] 500 mg PO DAILY 3 Days #3 tab Continue Ezetimibe [Zetia] 10 mg PO DAILY clonazePAM [KlonoPIN] 0.5 mg PO DAILY PRN PRN Reason: Anxiety Nitroglycerin Sl Tabs [Nitrostat] 0.4 mg SL Q5M PRN PRN Reason: Chest Pain Clopidogrel [Plavix] 75 mg PO HS Montelukast Sodium [Singulair] 10 mg PO DAILY DULoxetine HCL [Cymbalta] 60 mg PO DAILY Fluticasone/Umeclidin/Vilanter [Trelegy Ellipta 100-62.5-25] 1 puff INHALATION RT-DAILY Famotidine [Pepcid] 20 mg PO BID #60 tab Tiotropium 2.5 Mcg/Puff [Spiriva Respimat 2.5 Mcg] 2 puff INHALATION RT-DAILY #1 each Docusate [Colace] 100 mg PO BID 5 Days #10 cap Baclofen 10 mg PO TID PRN PRN Reason: Pain Albuterol Inhaler [Ventolin Hfa Inhaler] 2 puff INHALATION RT-QID PRN PRN Reason: Shortness Of Breath predniSONE See Taper PO DIRECTED 14 Days #38 tab Ipratropium-Albuterol Nebulize [Duoneb 0.5 mg-3 mg/3 ml Soln] 3 ml INHALATION RT-QID PRN #20 each PRN Reason: Shortness Of Breath Rosuvastatin Calcium 10 mg PO DAILY atenoloL 25 mg PO DAILY Psyllium Husk 100% [Metamucil Packet] 6 gm PO DAILY Discontinued Omeprazole [PriLOSEC] 20 mg PO DAILY Furosemide [Lasix] 20 mg PO DAILY #30 tab Discharge Medication List Ezetimibe [Zetia] 10 mg PO DAILY 02/13/16 [History] Nitroglycerin Sl Tabs [Nitrostat] 0.4 mg SL Q5M PRN 06/22/16 [History] clonazePAM [KlonoPIN] 0.5 mg PO DAILY PRN 06/22/16 [History] Clopidogrel [Plavix] 75 mg PO HS 10/20/19 [History] Montelukast Sodium [Singulair] 10 mg PO DAILY 06/22/20 [History] DULoxetine HCL [Cymbalta] 60 mg PO DAILY 07/19/21 [History] Fluticasone/Umeclidin/Vilanter [Trelegy Ellipta 100-62.5-25] 1 puff INHALATION RT-DAILY 03/06/22 [History] Rosuvastatin Calcium 10 mg PO DAILY 09/12/22 [History] atenoloL 25 mg PO DAILY 09/12/22 [History] Psyllium Husk 100% [Metamucil Packet] 6 gm PO DAILY 11/09/22 [History] Famotidine [Pepcid] 20 mg PO BID #60 tab 11/12/22 [Rx] Tiotropium 2.5 Mcg/Puff [Spiriva Respimat 2.5 Mcg] 2 puff INHALATION RT-DAILY #1 each 11/12/22 [Rx] Docusate [Colace] 100 mg PO BID 5 Days #10 cap 11/13/22 [Rx] Albuterol Inhaler [Ventolin Hfa Inhaler] 2 puff INHALATION RT-QID PRN 02/23/23 [History] Baclofen 10 mg PO TID PRN 02/23/23 [History] Azithromycin [Zithromax] 500 mg PO DAILY 3 Days #3 tab 02/25/23 [Rx] Furosemide [Lasix] 20 mg PO BID@0900,1600 #60 tab 02/25/23 [Rx] Ipratropium-Albuterol Nebulize [Duoneb 0.5 mg-3 mg/3 ml Soln] 3 ml INHALATION RT-QID PRN #20 each 02/25/23 [Rx] predniSONE See Taper PO DIRECTED 14 Days #38 tab 02/25/23 [Rx] Follow up Appointment(s)/Referral(s): Doretha Rose MD [Primary Care Provider] - 1-2 days Krys Abrams MD [STAFF PHYSICIAN] - 1 Week Ambulatory/Diagnostic Orders: Basic Metabolic Panel [LAB.AMB] Time Frame: 3 Days, Location: None Selected Complete Blood Count w/diff [LAB.AMB] Location: None Selected Activity/Diet/Wound Care/Special Instructions: Follow up with pulmonary services in 1 week Begin new oral prednisone taper No antibiotics needed on discharge Resume same home inhalers Discharge Disposition: HOME SELF-CARE
== END 2023-02-25 15:11 | disposition home or self-care (01) ==
LOC: EC 19:35 → 6NMEDSUR 22:30
PROVIDERS: ADMIT Hospitalist; ATTEND Hospitalist
DX: J44.1 Chronic obstructive pulmonary disease with (acute) exacerbation (principal); J96.01 Acute respiratory failure with hypoxia; I11.0 Hypertensive heart disease with heart failure; I50.9 Heart failure, unspecified; I51.7 Cardiomegaly; E78.5 Hyperlipidemia, unspecified; I35.0 Nonrheumatic aortic (valve) stenosis; Z20.822 Contact with and (suspected) exposure to COVID-19; G47.33 Obstructive sleep apnea (adult) (pediatric); F41.1 Generalized anxiety disorder; I10 Essential (primary) hypertension; I25.10 Atherosclerotic heart disease of native coronary artery without angina pectoris; Z95.1 Presence of aortocoronary bypass graft; G89.29 Other chronic pain; M54.9 Dorsalgia, unspecified; Z87.891 Personal history of nicotine dependence; Z99.81 Dependence on supplemental oxygen; E66.9 Obesity, unspecified; Z68.34 Body mass index [BMI] 34.0-34.9, adult; Z90.49 Acquired absence of other specified parts of digestive tract; Z95.5 Presence of coronary angioplasty implant and graft; Z98.890 Other specified postprocedural states; F41.9 Anxiety disorder, unspecified; F32.A Depression, unspecified; Z82.49 Family history of ischemic heart disease and other diseases of the circulatory system; Z83.438 Family history of other disorder of lipoprotein metabolism and other lipidemia; Z82.3 Family history of stroke; Z79.52 Long term (current) use of systemic steroids; Z79.02 Long term (current) use of antithrombotics/antiplatelets; Z79.51 Long term (current) use of inhaled steroids; Z79.899 Other long term (current) drug therapy
CPT/HCPCS: 96376 ×2; 96374; 99285; 36415; 94660; 94640 ×5; 94760 ×2; 93005; 83880; 80053; 80048; 85025; 85610; 85730; 81003; 83036; 84145; 87636; 71046; 70450; G0378 ×3; J2920 ×2

== ENCOUNTER 2023-05-06 17:23 | Inpatient (IN) | payer MEDICARE ==
[2023-05-06] MEDS ORDERED: SODIUM CHLORIDE 0.9% 1,000 ML IV STA (17:39)
[2023-05-06] MEDS ORDERED: SODIUM CHLORIDE 0.9% 500 ML 500 ML IV STA (17:39)
[2023-05-06] MEDS ORDERED: IPRATROPIUM-ALBUTEROL 3 ML NEB INHALATION STA ×2 (17:39→20:43)
[2023-05-06] MEDS ORDERED: methylPREDNISolone SOD SUCCI 125 MG/2 ML VIAL IV STA (17:39)
--- NOTE | 2023-05-06 17:40 | ED ---
SOB HPI - General Chief Complaint: Shortness of Breath Stated Complaint: SOB Time Seen by Provider: 05/06/23 17:32 Source: patient, EMS, RN notes reviewed, old records reviewed Mode of arrival: EMS - History of Present Illness Initial Comments: This is a 73-year-old male to the ER for evaluation patient presents today for evaluation severe shortness of breath history of COPD history of heart disease. Patient has no travel history no sick contacts fevers, mild current chest pain especially with exertion. Patient occasionally has chest pain made worse with exertion. No current significant chest pain currently but does have persistent shortness of breath weakness a strong history of heart disease MD Complaint: shortness of breath, "asthma attack" -: days(s) Severity: moderate Severity scale (1-10): 4 Quality: dull Consistency: constant Improves With: nothing Worsens With: nothing Known History Of: COPD Context: recent URI, recent illness Associated Symptoms: denies other symptoms Treatments Prior to Arrival: none - Related Data Home Medications Medication Instructions Recorded Confirmed Ezetimibe [Zetia] 10 mg PO DAILY 02/13/16 05/06/23 Nitroglycerin Sl Tabs [Nitrostat] 0.4 mg SL Q5M PRN 06/22/16 05/06/23 clonazePAM [KlonoPIN] 0.5 mg PO DAILY PRN 06/22/16 05/06/23 Clopidogrel [Plavix] 75 mg PO HS 10/20/19 05/06/23 Montelukast Sodium [Singulair] 10 mg PO DAILY 06/22/20 05/06/23 DULoxetine HCL [Cymbalta] 60 mg PO DAILY 07/19/21 05/06/23 Fluticasone/Umeclidin/Vilanter 1 puff INHALATION RT-DAILY 03/06/22 05/06/23 [Trelegy Ellipta 100-62.5-25] Albuterol Inhaler [Ventolin Hfa 2 puff INHALATION RT-QID PRN 02/23/23 05/06/23 Inhaler] Baclofen 10 mg PO TID PRN 02/23/23 05/06/23 Donepezil [Aricept] 5 mg PO HS 05/06/23 05/06/23 predniSONE 5 mg PO DAILY 05/06/23 05/06/23 Previous Rx's Medication Instructions Recorded Famotidine [Pepcid] 20 mg PO BID #60 tab 11/12/22 Tiotropium 2.5 Mcg/Puff [Spiriva 2 puff INHALATION RT-DAILY #1 each 11/12/22 Respimat 2.5 Mcg] Ipratropium-Albuterol Nebulize 3 ml INHALATION RT-QID PRN #20 each 02/25/23 [Duoneb 0.5 mg-3 mg/3 ml Soln] Aspirin 81 mg PO DAILY #30 tab 05/10/23 Atorvastatin [Lipitor] 40 mg PO DAILY #30 tab 05/10/23 Ipratropium-Albuterol Nebulize 3 ml INHALATION RT-QID each 05/10/23 [Duoneb 0.5 mg-3 mg/3 ml Soln] Isosorbide Mononitrate ER [Imdur] 30 mg PO DAILY #30 tab 05/10/23 Lactulose [Cephulac] 30 gm PO TID PRN #360 ml 05/10/23 Metoprolol Tartrate [Lopressor] 25 mg PO BID #60 tab 05/10/23 Sennosides [Senokot] 8.6 mg PO BID #30 tab 05/10/23 Torsemide [Demadex] 10 mg PO DAILY 30 Days #15 tab 05/10/23 lisinopriL [Zestril] 5 mg PO DAILY #30 tab 05/10/23 Amoxic-Pot Clav 875-125Mg 1 tab PO Q12HR 7 Days #14 tab 05/12/23 [Augmentin 875-125] Pantoprazole [Protonix] 40 mg PO DAILY #30 tab 05/12/23 Allergies Allergy/AdvReac Type Severity Reaction Status Date / Time No Known Allergies Allergy Verified 05/06/23 18:50 Review of Systems ROS Statement: Those systems with pertinent positive or pertinent negative responses have been documented in the HPI. ROS Other: All systems not noted in ROS Statement are negative. Past Medical History Past Medical History: Coronary Artery Disease (CAD), Heart Failure, COPD, Hyperlipidemia, Sleep Apnea/CPAP/BIPAP Additional Past Medical History / Comment(s): COPD, obesity, coronary artery disease with previous bypass surgery, cataracts, hiatal hernia, obstructive sleep apnea with CPAP therapy. 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 Mother Family Medical History: CVA/TIA Additional Family Medical History / Comment(s): at age 99 3/4 from a stoke General Exam General appearance: alert, in no apparent distress, anxious, in distress Head exam: Present: atraumatic, normocephalic, normal inspection Eye exam: Present: normal appearance, PERRL, EOMI. Absent: scleral icterus, conjunctival injection, periorbital swelling ENT exam: Present: normal exam, mucous membranes moist Neck exam: Present: normal inspection. Absent: tenderness, meningismus, lymphadenopathy Respiratory exam: Present: respiratory distress, wheezes, rhonchi, accessory muscle use, decreased breath sounds, prolonged expiratory. Absent: rales, stridor Cardiovascular Exam: Present: regular rate, normal rhythm, normal heart sounds. Absent: systolic murmur, diastolic murmur, rubs, gallop, clicks GI/Abdominal exam: Present: soft, normal bowel sounds. Absent: distended, tenderness, guarding, rebound, rigid Extremities exam: Present: normal inspection, full ROM, normal capillary refill. Absent: tenderness, pedal edema, joint swelling, calf tenderness Back exam: Present: normal inspection Neurological exam: Present: alert, oriented X3, CN II-XII intact Psychiatric exam: Present: normal affect, normal mood Skin exam: Present: warm, dry, intact, normal color. Absent: rash Course Vital Signs 05/06/23 05/06/23 05/06/23 17:26 18:29 18:38 Temperature 98.6 F Pulse Rate 98 92 92 Respiratory 19 20 Rate Blood Pressure 151/80 151/80 O2 Sat by Pulse 95 94 L Oximetry 05/06/23 05/06/23 05/06/23 18:53 19:00 20:00 Temperature Pulse Rate 93 96 108 H Respiratory 24 24 Rate Blood Pressure 151/80 129/78 O2 Sat by Pulse 96 95 Oximetry 05/06/23 05/06/23 05/06/23 21:00 21:13 21:14 Temperature Pulse Rate 101 H 105 H 107 H Respiratory 20 20 Rate Blood Pressure 129/78 129/78 O2 Sat by Pulse 94 L Oximetry 05/06/23 05/06/23 05/07/23 21:27 22:00 01:00 Temperature Pulse Rate 117 H 110 H 88 Respiratory 21 18 Rate Blood Pressure 144/80 134/83 O2 Sat by Pulse 93 L 95 Oximetry 05/07/23 05/07/23 05/07/23 02:59 05:22 07:25 Temperature Pulse Rate 77 74 90 Respiratory 19 20 22 Rate Blood Pressure 134/83 137/81 O2 Sat by Pulse 95 Oximetry 05/07/23 05/07/23 05/07/23 07:26 07:36 10:36 Temperature Pulse Rate 100 100 93 Respiratory 18 Rate Blood Pressure 119/57 O2 Sat by Pulse 96 92 L Oximetry 05/07/23 12:00 Temperature 98 F Pulse Rate 89 Respiratory 18 Rate Blood Pressure 124/85 O2 Sat by Pulse 95 Oximetry - Reevaluation(s) Reevaluation #1: 05/06/23 20:50 Medical records reviewed Reevaluation #2: 05/06/23 20:50 Patient symptoms unchanged here in the ER still short of breath Reevaluation #3: 05/06/23 20:50 Patient informed results questions answered Reevaluation #4: 05/06/23 20:50 Was pt. sent in by a medical professional or institution (, PA, HEALTHCARE FACILITY ADMINISTRATOR, urgent care, hospital, or half-way...) When possible be specific @ -no Did you speak to anyone other than the patient for history (EMS, parent, family, police, friend...)? What history was obtained from this source @ -no Did you review nursing and triage notes (agree or disagree)? Why? @ -agree Are old charts reviewed (outside hosp., previous admission, EMS record, old EKG, old radiological studies, urgent care reports/EKG's, half-way records)? Report findings @ -yes Differential Diagnosis (chest pain, altered mental status, abdominal pain women, abdominal pain men, vaginal bleeding, weakness, fever, dyspnea, syncope, headache, dizziness, GI bleed, back pain, seizure, CVA, palpatations, mental health, musculoskeletal)? @ -prior EKG interpreted by me (3pts min.). @ -yes X-rays interpreted by me (1pt min.). @ -yes CT interpreted by me (1pt min.). @ -no U/S interpreted by me (1pt. min.). @ -no What testing was considered but not performed or refused? (CT, X-rays, U/S, labs)? Why? @ -none What meds were considered but not given or refused? Why? @ -none Did you discuss the management of the patient with other professionals (professionals i.e. , PA, HEALTHCARE FACILITY ADMINISTRATOR, lab, RT, psych nurse, social organization professor, bedspread cutter, teacher, chief administrative officer, caser)? Give summary @ -no Was smoking cessation discussed for >3mins.? @ -no Was critical care preformed (if so, how long)? @ -yes31 Were there social determinants of health that impacted care today? How? (Homelessness, low income, unemployed, alcoholism, drug addiction, transportation, low edu. Level, literacy, decrease access to med. care, detention, rehab)? @ -none Was there de-escalation of care discussed even if they declined (Discuss DNR or withdrawal of care, Hospice)? DNR status @ -no What co-morbidities impacted this encounter? (DM, HTN, Smoking, COPD, CAD, Cancer, CVA, ARF, Chemo, Hep., AIDS, mental health diagnosis, sleep apnea, morbid obesity)? @ -none Was patient admitted / discharged? Hospital course, mention meds given and route, prescriptions, significant lab abnormalities, going to OR and other pertinent info. @ - 83 male to the emergency department for evaluation severe shortness of breath inability to catch his breath COPD and CHF. Patient will be admitted for breathing treatments diuresis Admitted Undiagnosed new problem with uncertain prognosis? @ -no Drug Therapy requiring intensive monitoring for toxicity (Heparin, Nitro, Insulin, Cardizem)? @ -no Were any procedures done? @ -no Diagnosis/symptom? @ -Non-ST elevated UT, chest pain, CHF COPD pulmonary edema Acute, or Chronic, or Acute on Chronic? @ -Acute Uncomplicated (without systemic symptoms) or Complicated (systemic symptoms)? @ -Complicated Side effects of treatment? @ -no Exacerbation, Progression, or Severe Exacerbation? @ -exacerbation Poses a threat to life or bodily function? How? (Chest pain, USA, UT, pneumonia, PE, COPD, DKA, ARF, appy, cholecystitis, CVA, Diverticulitis, Homicidal, Suicidal, threat to staff... and all critical care pts) @ -yes with hypoxia COPD CHF and compounded by heart disease and elevated troponin Reevaluation #5: 05/06/23 20:50 Differential Dyspnea: Coronary syndrome, arrhythmia, tamponade, asthma, COPD, pulmonary embolism, pneumonia, pneumothorax, pulmonary effusion, anaphylaxis, diabetic ketoacidosis, flailed chest, pulmonary contusion, diaphragmatic rupture, anemia, neuromuscular, this is not meant to be an all-inclusive list. - Consultations Consultation #1: Spoke with [facility] who agree to admit this patient Medical Decision Making - Medical Decision Making 83 male to the emergency department for evaluation severe shortness of breath inability to catch his breath COPD and CHF. Patient does have significant non- ST elevated UT here in the emergency department. Patient [place] for cardiology consult at the same time he will be admitted for breathing treatments diuresis - Lab Data Result diagrams: 05/10/23 09:31 05/12/23 08:26 Lab Results 05/06/23 05/06/23 05/06/23 Range/Units 18:00 18:00 18:00 WBC 10.1 (3.8-10.6) k/uL RBC 4.51 (4.30-5.90) m/uL Hgb 14.3 (13.0-17.5) gm/dL Hct 42.2 (39.0-53.0) % MCV 93.6 (80.0-100.0) fL MCH 31.7 (25.0-35.0) pg MCHC 33.9 (31.0-37.0) g/dL RDW 13.8 (11.5-15.5) % Plt Count 145 L (150-450) k/uL MPV 10.9 Neutrophils % 78 % Lymphocytes % 11 % Monocytes % 7 % Eosinophils % 2 % Basophils % 0 % Neutrophils # 7.9 H (1.3-7.7) k/uL Lymphocytes # 1.1 (1.0-4.8) k/uL Monocytes # 0.7 (0-1.0) k/uL Eosinophils # 0.2 (0-0.7) k/uL Basophils # 0.0 (0-0.2) k/uL PT 10.2 (9.0-12.0) sec INR 1.0 (<1.2) APTT 22.9 (22.0-30.0) sec Sodium 137 (137-145) mmol/L Potassium 4.1 (3.5-5.1) mmol/L Chloride 103 (98-107) mmol/L Carbon Dioxide 22 (22-30) mmol/L Anion Gap 12 mmol/L BUN 17 (9-20) mg/dL Creatinine 0.88 (0.66-1.25) mg/dL Est GFR (CKD-EPI)AfAm >90 (>60 ml/min/1.73 sqM) Est GFR (CKD-EPI)NonAf 80 (>60 ml/min/1.73 sqM) Glucose 136 H (74-99) mg/dL Calcium 9.0 (8.4-10.2) mg/dL Magnesium 2.2 (1.6-2.3) mg/dL Total Bilirubin 0.7 (0.2-1.3) mg/dL AST 37 (17-59) U/L ALT 34 (4-49) U/L Alkaline Phosphatase 67 (38-126) U/L Troponin I (0.000-0.034) ng/mL NT-Pro-B Natriuret Pep 267 pg/mL Total Protein 6.9 (6.3-8.2) g/dL Albumin 4.2 (3.5-5.0) g/dL 05/06/23 Range/Units 18:00 WBC (3.8-10.6) k/uL RBC (4.30-5.90) m/uL Hgb (13.0-17.5) gm/dL Hct (39.0-53.0) % MCV (80.0-100.0) fL MCH (25.0-35.0) pg MCHC (31.0-37.0) g/dL RDW (11.5-15.5) % Plt Count (150-450) k/uL MPV Neutrophils % % Lymphocytes % % Monocytes % % Eosinophils % % Basophils % % Neutrophils # (1.3-7.7) k/uL Lymphocytes # (1.0-4.8) k/uL Monocytes # (0-1.0) k/uL Eosinophils # (0-0.7) k/uL Basophils # (0-0.2) k/uL PT (9.0-12.0) sec INR (<1.2) APTT (22.0-30.0) sec Sodium (137-145) mmol/L Potassium (3.5-5.1) mmol/L Chloride (98-107) mmol/L Carbon Dioxide (22-30) mmol/L Anion Gap mmol/L BUN (9-20) mg/dL Creatinine (0.66-1.25) mg/dL Est GFR (CKD-EPI)AfAm (>60 ml/min/1.73 sqM) Est GFR (CKD-EPI)NonAf (>60 ml/min/1.73 sqM) Glucose (74-99) mg/dL Calcium (8.4-10.2) mg/dL Magnesium (1.6-2.3) mg/dL Total Bilirubin (0.2-1.3) mg/dL AST (17-59) U/L ALT (4-49) U/L Alkaline Phosphatase (38-126) U/L Troponin I 0.867 H* (0.000-0.034) ng/mL NT-Pro-B Natriuret Pep pg/mL Total Protein (6.3-8.2) g/dL Albumin (3.5-5.0) g/dL - EKG Data -: EKG Interpreted by Me (EKG is sinus 93 NH 160 QRS over 90 QTC 448) - Radiology Data Radiology results: report reviewed (Chest x-rays positive for CHF and pulmonary edema), image reviewed Critical Care Time Critical Care Time: Yes Total Critical Care Time: 31 Disposition Clinical Impression: Acute exacerbation of chronic obstructive airways disease, COPD (chronic obstructive pulmonary disease), Weakness, Acute respiratory insufficiency, Systolic congestive heart failure, Acute pulmonary edema, NSTEMI (non-ST elevated myocardial infarction), Uncontrolled hypertension, ACS (acute coronary syndrome) Disposition: ADMITTED IP TO THIS HOSP Condition: Serious Is patient prescribed a controlled substance at d/c from ED?: No Time of Disposition: 20:50
[2023-05-06 18:06] LABS: Basophils % (A) 0 %; Eosinophils # (A) 0.2 k/uL (0-0.7); Eosinophils % (A) 2 %; HCT 42.2 % (39.0-53.0); HGB 14.3 gm/dL (13.0-17.5); Lymphocytes # (A) 1.1 k/uL (1.0-4.8); Lymphocytes % (A) 11 %; MCH 31.7 pg (25.0-35.0); MCHC 33.9 g/dL (31.0-37.0); MCV 93.6 fL (80.0-100.0); Mean Platelet Volume 10.9; Monocytes # (A) 0.7 k/uL (0-1.0); Monocytes % (A) 7 %; Neutrophils # (A) 7.9 k/uL (1.3-7.7); Neutrophils % (A) 78 %; Platelet Count 145 k/uL (150-450); RBC 4.51 m/uL (4.30-5.90); RDW 13.8 % (11.5-15.5); WBC 10.1 k/uL (3.8-10.6)
[2023-05-06 18:22] LABS: Partial Thromboplastin Time 22.9 sec (22.0-30.0); Prothrombin Time 10.2 sec (9.0-12.0)
[2023-05-06 18:24] LABS: Chloride 103 mmol/L (98-107)
[2023-05-06 18:25] LABS: ALT 34 U/L (4-49); AST 37 U/L (17-59); African American GFR (CKD) >90 (>60 ml/min/1.73 sqM); Albumin 4.2 g/dL (3.5-5.0); Alkaline Phosphatase 67 U/L (38-126); Anion Gap 12 mmol/L; Blood Urea Nitrogen 17 mg/dL (9-20); Carbon Dioxide 22 mmol/L (22-30); Glucose 136 mg/dL (74-99); Magnesium 2.2 mg/dL (1.6-2.3); Non-African American GFR(CKD) 80 (>60 ml/min/1.73 sqM); Potassium 4.1 mmol/L (3.5-5.1); Sodium 137 mmol/L (137-145); Total Bilirubin 0.7 mg/dL (0.2-1.3); Total Protein 6.9 g/dL (6.3-8.2)
[2023-05-06 18:32] LABS: NT-Pro-B-Type Natriuretic Pept 267 pg/mL
--- NOTE | 2023-05-06 18:34 | XR ---
EXAMINATION TYPE: XR chest 1V portable DATE OF EXAM: 05/06/2023 6:06 PM COMPARISON: Chest radiographs from 02/23/2023. TECHNIQUE: XR chest 1V portable Frontal view of the chest. CLINICAL INDICATION:Male, 83 years old with history of sob; FINDINGS: Lungs/Pleura: No evidence of focal consolidation or pneumothorax. Blunting of the costophrenic angles is present. Pulmonary vascularity: Pulmonary vascular congestion. Heart/mediastinum: Cardiomediastinal silhouette is enlarged and stable. Musculoskeletal: No acute osseous pathology. IMPRESSION: Cardiomegaly, pulmonary vascular congestion and bilateral pleural effusions. Correlate with BNP for c ongestive heart failure.
[2023-05-06] MEDS ORDERED: ONDANSETRON 4 MG/2 ML VIAL IVP PRN (20:43)
[2023-05-06] MEDS ORDERED: MORPHINE SULFATE 4 MG/ML SYRINGE IV PRN (20:43)
[2023-05-06] MEDS ORDERED: FUROSEMIDE 10 MG/ML 10 ML VIAL IV STA (20:43)
[2023-05-06] MEDS ORDERED: NALOXONE 0.4 MG/ML 1 ML VIAL IV PRN (20:43)
[2023-05-07] MEDS ORDERED: ALBUTEROL NEBULIZED 2.5 MG/3 ML INHALATION PRN (00:57)
--- NOTE | 2023-05-07 03:27 | P.CNPUL ---
History of Present Illness Consult date: 05/07/23 Requesting physician: Shaan Gibson Reason for consult: COPD Chief complaint: Shortness of breath, cough History of present illness: I am seeing this patient in new consultation today 05/07/2023 in the emergency room for suspected exacerbation of diastolic congestive heart failure and COPD. This is a pleasant 82-year-old male patient with a history of oxygen and prednisone dependent COPD, coronary artery disease status post CABG and subsequent PCI, congestive heart failure, hyperlipidemia, generalized anxiety disorder, obesity, obstructive sleep apnea on CPAP. He does follow with Dr. Ortega in the office for management of his COPD. Patient presented to the emergency room yesterday evening complaining of shortness of breath that started approximately 48 hours ago, associated with a nonproductive cough. Denies any fevers, chills, myalgias, hemoptysis. Denies sick contacts or travel history. Denies chest pain, heart palpitations, lower extremity swelling. Admits orthopnea. Patient was hospitalized 2 months ago with similar symptoms. He is currently sitting up in bed, on 3 L/m nasal cannula, in no acute distress. Chest x-ray on arrival showed cardiomegaly, with pulmonary vascular congestions, and bilateral pleural effusions consistent with CHF exacerbation. NT proBNP was only mildly elevated, however, at 267. Troponins were elevated at 0.867. ECG shows normal sinus rhythm with a right bundle branch block and nonspecific T- wave inversion. CBC on arrival was unremarkable without any leukocytosis. BMP on arrival was also unremarkable. Normal saline is currently infusing at 130 ML's per hour. Afebrile. Patient is hemodynamically stable. Review of Systems REVIEW OF SYSTEMS: CONSTITUTIONAL: Denies any recent significant weight loss or weight gain. Denies fever. EYES: Denies change in vision. EARS, NOSE, MOUTH, THROAT: Denies headaches, denies sore throat. CARDIOVASCULAR: Denies chest pain, palpitations or syncopal episodes. RESPIRATORY: See HPI GASTROINTESTINAL: Denies change in appetite, abdominal pain, nausea and vomiting, or diarrhea GENITOURINARY: Denies hematuria, denies infections. MUSKULOSKELETAL: Denies pain, denies swelling. INTEGUMENTARY: Denies rash, denies eczema. NEUROLOGICAL: Denies recent memory loss, no recent seizure activity. PSYCHIATRIC: Denies anxiety, denies depression. HEMATOLOGIC/LYMPHATIC: Denies anemia, denies enlarged lymph node Past Medical History Past Medical History: Coronary Artery Disease (CAD), Heart Failure, COPD, Hyperlipidemia, Sleep Apnea/CPAP/BIPAP Additional Past Medical History / Comment(s): COPD, obesity, coronary artery disease with previous bypass surgery, cataracts, hiatal hernia, obstructive sleep apnea with CPAP therapy. 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 Mother Family Medical History: CVA/TIA Additional Family Medical History / Comment(s): at age 99 3/4 from a stoke Medications and Allergies Home Medications Medication Instructions Recorded Confirmed Type Ezetimibe [Zetia] 10 mg PO DAILY 02/13/16 05/06/23 History Nitroglycerin Sl Tabs [Nitrostat] 0.4 mg SL Q5M PRN 06/22/16 05/06/23 History clonazePAM [KlonoPIN] 0.5 mg PO DAILY PRN 06/22/16 05/06/23 History Clopidogrel [Plavix] 75 mg PO HS 10/20/19 05/06/23 History Montelukast Sodium [Singulair] 10 mg PO DAILY 06/22/20 05/06/23 History DULoxetine HCL [Cymbalta] 60 mg PO DAILY 07/19/21 05/06/23 History Fluticasone/Umeclidin/Vilanter 1 puff INHALATION RT-DAILY 03/06/22 05/06/23 History [Trelegy Ellipta 100-62.5-25] Rosuvastatin Calcium 10 mg PO DAILY 09/12/22 05/06/23 History atenoloL 25 mg PO DAILY 09/12/22 05/06/23 History Famotidine [Pepcid] 20 mg PO BID #60 tab 11/12/22 05/06/23 Rx Tiotropium 2.5 Mcg/Puff [Spiriva 2 puff INHALATION RT-DAILY #1 each 11/12/22 05/06/23 Rx Respimat 2.5 Mcg] Albuterol Inhaler [Ventolin Hfa 2 puff INHALATION RT-QID PRN 02/23/23 05/06/23 History Inhaler] Baclofen 10 mg PO TID PRN 02/23/23 05/06/23 History Ipratropium-Albuterol Nebulize 3 ml INHALATION RT-QID PRN #20 each 02/25/23 05/06/23 Rx [Duoneb 0.5 mg-3 mg/3 ml Soln] Docusate [Colace] 100 mg PO BID PRN 05/06/23 05/06/23 History Donepezil [Aricept] 5 mg PO HS 05/06/23 05/06/23 History Furosemide [Lasix] 20 mg PO DAILY 05/06/23 05/06/23 History predniSONE 5 mg PO DAILY 05/06/23 05/06/23 History Allergies Allergy/AdvReac Type Severity Reaction Status Date / Time No Known Allergies Allergy Verified 05/06/23 18:50 Physical Exam Vitals: Vital Signs Temp Pulse Resp BP Pulse Ox 05/07/23 01:00 88 18 134/83 95 05/06/23 22:00 110 H 21 144/80 93 L 05/06/23 21:27 117 H 05/06/23 21:14 107 H 20 129/78 05/06/23 21:13 105 H 05/06/23 21:00 101 H 20 129/78 94 L 05/06/23 20:00 108 H 24 129/78 95 05/06/23 19:00 96 24 151/80 96 05/06/23 18:53 93 05/06/23 18:38 92 05/06/23 18:29 92 20 151/80 94 L 05/06/23 17:26 98.6 F 98 19 151/80 95 Intake and Output 05/06/23 05/06/23 05/07/23 14:59 22:59 06:59 Output Total 400 Balance -400 Output: Urine 400 Other: Weight 99.79 kg GENERAL EXAM: Alert, 83-year-old white male, comfortable in no apparent distress. HEAD: Normocephalic and atraumatic EYES: Normal reaction of pupils, equal size. NOSE: Clear with pink turbinates. THROAT: No erythema or exudates. NECK: No masses, no JVD. CHEST: No chest wall deformity. LUNGS: Equal air entry with bibasilar inspiratory crackles and minimal expiratory wheezes throughout. On 3 L/m nasal cannula. No conversational dyspnea or accessory muscle use.. CVS: S1 and S2 normal with no audible murmur, regular rhythm. No extra heart sounds ABDOMEN: No hepatosplenomegaly, active bowel sounds, no guarding or rigidity. SPINE: No scoliosis or deformity SKIN: No rashes CENTRAL NERVOUS SYSTEM: No focal deficits, tone is normal in all 4 extremities. EXTREMITIES: There is no peripheral edema, clubbing, or cyanosis. Peripheral pulses are intact. Results - Laboratory Findings CBC and BMP: 05/07/23 04:18 05/07/23 04:18 PT/INR, D-dimer PT 10.2 sec (9.0-12.0) 05/06/23 18:00 INR 1.0 (<1.2) 05/06/23 18:00 Abnormal lab findings: Abnormal Labs 05/06/23 05/06/23 05/06/23 18:00 18:00 18:00 Plt Count 145 L Neutrophils # 7.9 H Glucose 136 H Troponin I 0.867 H* - Diagnostic Findings Chest x-ray: image reviewed Assessment and Plan Assessment: Acute on chronic hypoxemic respiratory failure, currently on 3 L/m nasal cannula, multifactorial secondary to exacerbation of diastolic congestive heart failure and mild COPD exacerbation. Chest x-ray on arrival showed cardiomegaly, with pulmonary vascular congestions, and bilateral pleural effusions consistent with CHF exacerbation. NT proBNP was only mildly elevated, however, at 267. Most recent echocardiogram from 06/16/2022 shows a preserved left ventricular ejection fraction of 50-55%, with moderately increased LVH, and moderate aortic stenosis. Elevated troponins, rule out NSTEMI, EKG showing chronic RBB pattern with normal sinus rhythm. Moderate degree of aortic stenosis Moderate chronic obstructive pulmonary disease, baseline FEV1 72% of predicted. Patient is oxygen dependent and the patient has been utilizing a bit on about treatments 4 times a day [id number] and recently hospitalized for an acute COPD exacerbation Coronary artery disease, with previous CABG and subsequent PCI, followed up by Dr. Vuong from cardiology Hyperlipidemia Obesity, with a BMI of 33.5 kg/m Obstructive sleep apnea, with home CPAP Generalized anxiety disorder Remote ex-smoker Plan: Patient's medications, labs, chest x-ray reviewed Continue supplemental oxygen Utilize home CPAP at bedtime Start patient on combination of bronchodilators, Symbicort inhaler, IV Solu-M edrol Check COVID-19 Start Lasix 20 mg twice a day Hold IV maintenance fluids, patient is tolerating oral intake Trend troponins Cardiology has been consulted We will continue to follow make recommendations I have personally seen and examined the patient, performed the documentation and the assessment and plan as written. Number of minutes spent on the visit:20 This is a joint evaluation that was done along with the nurse practitioner. The patient comes in with a acute chest pain and shortness of breath and the patient was ruled in for acute non-ST segment elevation myocardial infarction and he was in decompensated heart failure with acute hypoxic respiratory failure. He is known to have CAD, previous CO and previous. I and previous history of moderate degree of aortic stenosis on echocardiogram that was done in 2021. The patient has been followed by Dr. Vuong on outpatient basis. Currently still having some chest discomfort. He is on bronchodilators. He is on steroids. He is on diuretics. He restarted back on his beta blockers. Recommend IV heparin until the patient undergoes a cardiac evaluation. Repeat echocardiogram. Titrate FiO2. We'll admit to telemetry interval continue to follow. Monitor troponins. This evaluation was on a more than 30 minutes. Time with Patient: Greater than 30
[2023-05-07 05:04] LABS: Basophils % (A) 0 %; Eosinophils # (A) 0.1 k/uL (0-0.7); Eosinophils % (A) 1 %; HGB 14.3 gm/dL (13.0-17.5); Lymphocytes # (A) 0.5 k/uL (1.0-4.8); Lymphocytes % (A) 7 %; MCH 30.9 pg (25.0-35.0); MCHC 32.4 g/dL (31.0-37.0); MCV 95.3 fL (80.0-100.0); Mean Platelet Volume 10.4; Monocytes # (A) 0.1 k/uL (0-1.0); Monocytes % (A) 2 %; Neutrophils # (A) 6.4 k/uL (1.3-7.7); Neutrophils % (A) 90 %; Platelet Count 132 k/uL (150-450); RBC 4.62 m/uL (4.30-5.90); RDW 13.8 % (11.5-15.5); WBC 7.2 k/uL (3.8-10.6)
[2023-05-07 05:18] LABS: ALT 35 U/L (4-49); AST 39 U/L (17-59); African American GFR (CKD) >90 (>60 ml/min/1.73 sqM); Alkaline Phosphatase 65 U/L (38-126); Anion Gap 11 mmol/L; Blood Urea Nitrogen 19 mg/dL (9-20); Calcium 8.8 mg/dL (8.4-10.2); Carbon Dioxide 23 mmol/L (22-30); Chloride 101 mmol/L (98-107); Glucose 232 mg/dL (74-99); Magnesium 2.2 mg/dL (1.6-2.3); Non-African American GFR(CKD) 79 (>60 ml/min/1.73 sqM); Phosphorus 3.5 mg/dL (2.5-4.5); Potassium 4.4 mmol/L (3.5-5.1); Sodium 135 mmol/L (137-145); Total Bilirubin 0.8 mg/dL (0.2-1.3); Total Protein 6.9 g/dL (6.3-8.2)
[2023-05-07] MEDS: methylPREDNISolone SOD SUCCI 125 MG/2 ML VIAL IV SCH ×2 (06:38→12:22)
[2023-05-07] MEDS ORDERED: HEPARIN SODIUM,PORCINE 10,000 UNIT in SODIUM CHLORIDE 0.9% 1,000 ML IRRIGATION PRN (07:00)
[2023-05-07] MEDS ORDERED: HEPARIN SODIUM,PORCINE (1 ML) 2,500 UNIT in SODIUM CHLORIDE 0.9% 250 ML IRRIGATION PRN (07:00)
[2023-05-07] MEDS: SYMBICORT 160-4.5 MCG INHALER INHALATION SCH ×2 (07:24→20:06)
[2023-05-07] MEDS: IPRATROPIUM-ALBUTEROL 3 ML NEB INHALATION SCH ×4 (07:24→20:06)
[2023-05-07] MEDS ORDERED: ALBUTEROL NEBULIZED 2.5 MG/3 ML INHALATION SCH (08:00)
[2023-05-07] MEDS: FUROSEMIDE 10 MG/ML 2 ML VIAL IV SCH ×2 (08:21→20:21)
[2023-05-07] MEDS ORDERED: HEPARIN SODIUM 1,000 UN/ML (10ML VL) IV PRN (09:38)
[2023-05-07] MEDS ORDERED: HEPARIN SODIUM 1,000 UN/ML (10ML VL) IV ONE ×2 (09:38→10:25)
[2023-05-07] MEDS ORDERED: ASPIRIN 81 MG PO STA (10:27)
[2023-05-07] MEDS ORDERED: FUROSEMIDE 10 MG/ML 2 ML VIAL IV ONE (10:27)
[2023-05-07] MEDS: HEPARIN SOD,PORK IN 0.45% NACL 25,000 UNIT in 0.45% NACL 1 250ML.BAG IV SCH (10:32)
[2023-05-07] MEDS ORDERED: ATORVASTATIN 80 MG TAB PO STA (10:36)
[2023-05-07] MEDS ORDERED: ASPIRIN 325 MG TAB PO STA (10:36)
[2023-05-07] MEDS ORDERED: SODIUM CHLORIDE 0.9% 1,000 ML in EMPTY BAG 1 BAG IV ONE (10:36)
[2023-05-07] MEDS ORDERED: NITROGLYCERIN SL TABS 0.4 MG TAB SUBLINGUAL PRN (10:36)
[2023-05-07 10:52] LABS: Basophils % (A) 0 %; Eosinophils # (A) 0.1 k/uL (0-0.7); Eosinophils % (A) 1 %; HCT 42.7 % (39.0-53.0); HGB 14.3 gm/dL (13.0-17.5); Lymphocytes # (A) 0.5 k/uL (1.0-4.8); Lymphocytes % (A) 5 %; MCH 31.4 pg (25.0-35.0); MCHC 33.4 g/dL (31.0-37.0); Mean Platelet Volume 10.2; Monocytes # (A) 0.3 k/uL (0-1.0); Monocytes % (A) 2 %; Neutrophils # (A) 9.6 k/uL (1.3-7.7); Neutrophils % (A) 92 %; Platelet Count 137 k/uL (150-450); RBC 4.54 m/uL (4.30-5.90); RDW 13.8 % (11.5-15.5); WBC 10.5 k/uL (3.8-10.6)
--- NOTE | 2023-05-07 10:58 | P.CRDCN ---
History of Present Illness Consult date: 05/07/23 History of present illness: HISTORY OF PRESENTING ILLNESS This is a pleasant 83-year-old with past medical history significant for CAD status post CABG 30 years ago, prior PCI, COPD, HELEN on CPAP, obesity, hypertension, dyslipidemia, hepatic steatosis, moderate aortic stenosis. He follows in the office with [place] [facility]. This time he presented to the hospital with worsening shortness of breath over last 1-2 weeks. He has been complaining of difficulty breathing with mild frothy sputum production. He has also noticed on and off chest pressure sensation. He denies any palpitations lightheadedness dizziness or syncope. He denies any missing his medication. He denies drinking more water or salt in diet. He reports that he's been having low urine output for last couple of days with Lasix. DIAGNOSTICS EKG reveals sinus rhythm with right bundle branch block. Chest xray bilateral pulmonary congestion with small bilateral pleural effusion. Laboratory reviewed, elevated troponin 0.8, 1.3. Creatinine 0.9, hemoglobin 14.3, platelets 132, BNP 267. Home cardiac medications include rosuvastatin, Plavix, Lasix 20 mg. PRIOR CARDIAC TESTING Echocardiogram June 2022 EF 55%, moderate aortic stenosis, bilateral dilatation CTA chest from October 2022 no evidence of PE, no aneurysm REVIEW OF SYSTEMS 14 point review of system is negative except what is mentioned above in HPI. PHYSICAL EXAMINATION Vital signs reviewed. Head: Normocephalic. In mild distress, alert oriented 3 Eyes: Sclerae nonicteric. Neck: Brisk carotid upstroke, no elevated JVD Lungs: Crackles and rhonchi audible in bilateral lung chaudhry, mild wheezing in bilateral lung chaudhry Heart: Regular rate and rhythm, S1-S2, no S3, start murmur radiating to carotids Abdomen: Soft nontender, positive bowel sounds no organomegaly. Extremities: No edema, poor distal pulses ASSESSMENT Acute hypoxic respiratory failure, due to combination of HFpEF, moderate aortic stenosis, NSTEMI and mild to moderate COPD exacerbation Acute HFpEF exacerbation NSTEMI Type I Acute COPD exacerbation Moderate aortic stenosis Obesity Essential hypertension Dyslipidemia HELEN on CPAP PLAN Start IV heparin drip Give aspirin 81 mg. Patient was on Plavix at home Patient got 20 of IV Lasix once. We will repeat 1 time dose of 20 mg IV Lasix Plan for cardiac catheterization. Further recommendations to follow Obtain echo Request medical records from [facility] Past Medical History Past Medical History: Coronary Artery Disease (CAD), Heart Failure, COPD, Hyp erlipidemia, Sleep Apnea/CPAP/BIPAP Additional Past Medical History / Comment(s): COPD, obesity, coronary artery disease with previous bypass surgery, cataracts, hiatal hernia, obstructive sleep apnea with CPAP therapy. 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 Mother Family Medical History: CVA/TIA Additional Family Medical History / Comment(s): at age 99 3/4 from a stoke Medications and Allergies Home Medications Medication Instructions Recorded Confirmed Type Ezetimibe [Zetia] 10 mg PO DAILY 02/13/16 05/06/23 History Nitroglycerin Sl Tabs [Nitrostat] 0.4 mg SL Q5M PRN 06/22/16 05/06/23 History clonazePAM [KlonoPIN] 0.5 mg PO DAILY PRN 06/22/16 05/06/23 History Clopidogrel [Plavix] 75 mg PO HS 10/20/19 05/06/23 History Montelukast Sodium [Singulair] 10 mg PO DAILY 06/22/20 05/06/23 History DULoxetine HCL [Cymbalta] 60 mg PO DAILY 07/19/21 05/06/23 History Fluticasone/Umeclidin/Vilanter 1 puff INHALATION RT-DAILY 03/06/22 05/06/23 History [Trelegy Ellipta 100-62.5-25] Rosuvastatin Calcium 10 mg PO DAILY 09/12/22 05/06/23 History atenoloL 25 mg PO DAILY 09/12/22 05/06/23 History Famotidine [Pepcid] 20 mg PO BID #60 tab 11/12/22 05/06/23 Rx Tiotropium 2.5 Mcg/Puff [Spiriva 2 puff INHALATION RT-DAILY #1 each 11/12/22 05/06/23 Rx Respimat 2.5 Mcg] Albuterol Inhaler [Ventolin Hfa 2 puff INHALATION RT-QID PRN 02/23/23 05/06/23 History Inhaler] Baclofen 10 mg PO TID PRN 02/23/23 05/06/23 History Ipratropium-Albuterol Nebulize 3 ml INHALATION RT-QID PRN #20 each 02/25/23 05/06/23 Rx [Duoneb 0.5 mg-3 mg/3 ml Soln] Docusate [Colace] 100 mg PO BID PRN 05/06/23 05/06/23 History Donepezil [Aricept] 5 mg PO HS 05/06/23 05/06/23 History Furosemide [Lasix] 20 mg PO DAILY 05/06/23 05/06/23 History predniSONE 5 mg PO DAILY 05/06/23 05/06/23 History Allergies Allergy/AdvReac Type Severity Reaction Status Date / Time No Known Allergies Allergy Verified 05/06/23 18:50 Physical Exam Vitals: Vital Signs Temp Pulse Resp BP Pulse Ox 05/07/23 10:36 93 18 119/57 92 L 05/07/23 07:36 100 05/07/23 07:26 100 96 05/07/23 07:25 90 22 137/81 95 05/07/23 05:22 74 20 05/07/23 02:59 77 19 134/83 05/07/23 01:00 88 18 134/83 95 05/06/23 22:00 110 H 21 144/80 93 L 05/06/23 21:27 117 H 05/06/23 21:14 107 H 20 129/78 05/06/23 21:13 105 H 05/06/23 21:00 101 H 20 129/78 94 L 05/06/23 20:00 108 H 24 129/78 95 05/06/23 19:00 96 24 151/80 96 05/06/23 18:53 93 05/06/23 18:38 92 05/06/23 18:29 92 20 151/80 94 L 05/06/23 17:26 98.6 F 98 19 151/80 95 Intake and Output 05/06/23 05/07/23 05/07/23 22:59 06:59 14:59 Output Total 400 Balance -400 Output: Urine 400 Other: Weight 99.79 kg Results 05/07/23 10:27 05/07/23 04:18 Cardiac Enzymes 05/06/23 05/06/23 05/07/23 Range/Units 18:00 18:00 04:18 AST 37 39 (17-59) U/L Troponin I 0.867 H* (0.000-0.034) ng/mL 05/07/23 Range/Units 04:18 AST (17-59) U/L Troponin I 1.300 H* (0.000-0.034) ng/mL Coagulation 05/06/23 Range/Units 18:00 PT 10.2 (9.0-12.0) sec APTT 22.9 (22.0-30.0) sec CBC 05/06/23 05/07/23 05/07/23 Range/Units 18:00 04:18 10:27 WBC 10.1 7.2 10.5 (3.8-10.6) k/uL RBC 4.51 4.62 4.54 (4.30-5.90) m/uL Hgb 14.3 14.3 14.3 (13.0-17.5) gm/dL Hct 42.2 44.0 42.7 (39.0-53.0) % Plt Count 145 L 132 L 137 L (150-450) k/uL Comprehensive Metabolic Panel 05/06/23 05/07/23 Range/Units 18:00 04:18 Sodium 137 135 L (137-145) mmol/L Potassium 4.1 4.4 (3.5-5.1) mmol/L Chloride 103 101 (98-107) mmol/L Carbon Dioxide 22 23 (22-30) mmol/L BUN 17 19 (9-20) mg/dL Creatinine 0.88 0.90 (0.66-1.25) mg/dL Glucose 136 H 232 H (74-99) mg/dL Calcium 9.0 8.8 (8.4-10.2) mg/dL AST 37 39 (17-59) U/L ALT 34 35 (4-49) U/L Alkaline Phosphatase 67 65 (38-126) U/L Total Protein 6.9 6.9 (6.3-8.2) g/dL Albumin 4.2 4.0 (3.5-5.0) g/dL Current Medications Generic Name Dose Route Start Last Admin Trade Name Freq PRN Reason Stop Dose Admin Albuterol Sulfate 2.5 mg 05/07/23 00:57 Albuterol Nebulized 2.5 Mg/3 Ml INHALATION RT-QID PRN Shortness Of Breath Or Wheezing Albuterol/Ipratropium 3 ml 05/07/23 08:00 05/07/23 07:24 Ipratropium-Albuterol 3 Ml Neb INHALATION 3 ml RT-QID ASA Administration Budesonide/Formoterol Fumarate 2 puff 05/07/23 08:00 05/07/23 07:24 Symbicort 160-4.5 Mcg Inhaler INHALATION 2 puff RT-BID ASA Administration Furosemide 20 mg 05/07/23 09:00 05/07/23 08:21 Furosemide 10 Mg/Ml 2 Ml Vial IV 20 mg Q12HR ASA Administration Heparin Sodium (Porcine) 0 unit 05/07/23 09:38 Heparin Sodium 1,000 Un/Ml (10ml Vl) IV PER PROTOCOL PRN Low PTT Protocol Heparin Sodium/Sodium Chloride 250 mls @ 10 mls/hr 05/07/23 09:45 05/07/23 10:32 25,000 unit/ Sodium Chloride IV 10.021 units/kg/hr .Q24H ASA 10 mls/hr Administration Protocol 10.021 UNITS/KG/HR Heparin Sodium (Porcine) 10, 1,001 mls @ 999 mls/hr 05/07/23 07:00 000 unit/ Sodium Chloride IRRIGATION 05/07/23 23:00 ONCE PRN INTRA-OP Heparin Sodium (Porcine) 2,500 250.5 mls @ 250 mls/hr 05/07/23 07:00 unit/ Sodium Chloride IRRIGATION 05/07/23 23:00 ONCE PRN INTRA-OP Sodium Chloride 1,000 ml/ IV 1,000 mls @ 299.37 mls/hr 05/07/23 10:36 Solution IV 05/07/23 13:56 .Q3H21M ONE 3 ML/KG/HR Methylprednisolone Sodium Succinate 60 mg 05/07/23 06:00 05/07/23 06:38 Methylprednisolone Sod Succi 125 Mg/2 Ml Vial IV 60 mg Q6HR ASA Administration Morphine Sulfate 4 mg 05/06/23 20:43 Morphine Sulfate 4 Mg/Ml Syringe IV Q4HR PRN Severe Pain (Scale 7 to 10) Naloxone HCl 0.2 mg 05/06/23 20:43 Naloxone 0.4 Mg/Ml 1 Ml Vial IV Q2M PRN Opioid Reversal Nitroglycerin 0.4 mg 05/07/23 10:36 Nitroglycerin Sl Tabs 0.4 Mg Tab SUBLINGUAL Q5M PRN Chest Pain Ondansetron HCl 4 mg 05/06/23 20:43 Ondansetron 4 Mg/2 Ml Vial IVP Q8HR PRN Nausea And Vomiting Intake and Output 05/06/23 05/07/23 05/07/23 22:59 06:59 14:59 Output Total 400 Balance -400 Output: Urine 400 Other: Weight 99.79 kg 05/07/23 10:27 05/07/23 04:18
[2023-05-07 11:07] LABS: Partial Thromboplastin Time 22.1 sec (22.0-30.0); Prothrombin Time 10.3 sec (9.0-12.0)
[2023-05-07] MEDS: MIDAZOLAM 2 MG/2 ML VIAL IVP ONE ×2 (13:15→14:14)
[2023-05-07] MEDS: fentaNYL (PF) 50 MCG/1 ML VIAL IVP ONE ×4 (13:15→14:14)
[2023-05-07] MEDS ORDERED: LIDOCAINE 1% INJ 10MG/ML (30 ML VIAL-PF) SQ ONE (13:17)
[2023-05-07] MEDS ORDERED: SODIUM CHLORIDE 0.9% 1,000 ML IV ONE (13:22)
--- NOTE | 2023-05-07 13:31 | P.HPIM ---
History of Present Illness A 51-year-old the male came in with compensative chest pain denied any fever chills patient is found have elevated troponins first one is alert to around 0.8 going up to around 1.3. Chest x-ray showed bilateral [place] condition pleural effusions patient had a previous echocardiogram which showed normal ejection fraction and the EKG showed some nonspecific T-wave inversions. Patient's BNP is essentially within normal limits. REVIEW OF SYSTEMS: CONSTITUTIONAL: No fever, no malaise, no fatigue. HEENT: No recent visual problems or hearing problems. Denied any sore throat. CARDIOVASCULAR: No orthopnea, PND, no palpitations, no syncope. PULMONARY: no cough, no hemoptysis. GASTROINTESTINAL: No diarrhea, no nausea, no vomiting, no abdominal pain. NEUROLOGICAL: No headaches, no weakness, no numbness. HEMATOLOGICAL: Denies any bleeding or petechiae. GENITOURINARY: Denies any burning micturition, frequency, or urgency. MUSCULOSKELETAL/RHEUMATOLOGICAL: Denies any joint pain, swelling, or any muscle pain. ENDOCRINE: Denies any polyuria or polydipsia. The rest of the 14-point review of systems is negative. PHYSICAL EXAMINATION: GENERAL: The patient is alert and oriented x3, not in any acute distress. Well developed, well nourished. HEENT: Pupils are round and equally reacting to light. EOMI. No scleral icterus. No conjunctival pallor. Normocephalic, atraumatic. No pharyngeal erythema. No thyromegaly. CARDIOVASCULAR: S1 and S2 present. No murmurs, rubs, or gallops. PULMONARY: Chest is clear to auscultation, no wheezing or crackles. ABDOMEN: Soft, nontender, nondistended, normoactive bowel sounds. No palpable organomegaly. MUSCULOSKELETAL: No joint swelling or deformity. EXTREMITIES: No cyanosis, clubbing, or pedal edema. NEUROLOGICAL: Gross neurological examination did not reveal any focal deficits. SKIN: No rashes. Assessment and plan -Acute non-ST elevation myocardial infarction: Patient was started on IV heparin, patient will undergo cardiac catheterization today. Patient was started on statin and aspirin along with Plavix -Mild congestive heart failure may be acute systolic dysfunction are exacerbation of chronic diastolic dysfunction. Echocardiogram will be obtained patient received 1 dose of Lasix #COPD without any acute exacerbation -Cannot disease -Hyperlipidemia -Sleep apnea uses CPAP machine at home DVT prophylaxis: Patient is on IV heparin at this time Past Medical History Past Medical History: Coronary Artery Disease (CAD), Heart Failure, COPD, Hyperlipidemia, Sleep Apnea/CPAP/BIPAP Additional Past Medical History / Comment(s): COPD, obesity, coronary artery disease with previous bypass surgery, cataracts, hiatal hernia, obstructive sleep apnea with CPAP therapy. 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 Mother Family Medical History: CVA/TIA Additional Family Medical History / Comment(s): at age 99 3/4 from a stoke Medications and Allergies Home Medications Medication Instructions Recorded Confirmed Type Ezetimibe [Zetia] 10 mg PO DAILY 02/13/16 05/06/23 History Nitroglycerin Sl Tabs [Nitrostat] 0.4 mg SL Q5M PRN 06/22/16 05/06/23 History clonazePAM [KlonoPIN] 0.5 mg PO DAILY PRN 06/22/16 05/06/23 History Clopidogrel [Plavix] 75 mg PO HS 10/20/19 05/06/23 History Montelukast Sodium [Singulair] 10 mg PO DAILY 06/22/20 05/06/23 History DULoxetine HCL [Cymbalta] 60 mg PO DAILY 07/19/21 05/06/23 History Fluticasone/Umeclidin/Vilanter 1 puff INHALATION RT-DAILY 03/06/22 05/06/23 History [Trelegy Ellipta 100-62.5-25] Rosuvastatin Calcium 10 mg PO DAILY 09/12/22 05/06/23 History atenoloL 25 mg PO DAILY 09/12/22 05/06/23 History Famotidine [Pepcid] 20 mg PO BID #60 tab 11/12/22 05/06/23 Rx Tiotropium 2.5 Mcg/Puff [Spiriva 2 puff INHALATION RT-DAILY #1 each 11/12/22 05/06/23 Rx Respimat 2.5 Mcg] Albuterol Inhaler [Ventolin Hfa 2 puff INHALATION RT-QID PRN 02/23/23 05/06/23 History Inhaler] Baclofen 10 mg PO TID PRN 02/23/23 05/06/23 History Ipratropium-Albuterol Nebulize 3 ml INHALATION RT-QID PRN #20 each 02/25/23 05/06/23 Rx [Duoneb 0.5 mg-3 mg/3 ml Soln] Docusate [Colace] 100 mg PO BID PRN 05/06/23 05/06/23 History Donepezil [Aricept] 5 mg PO HS 05/06/23 05/06/23 History Furosemide [Lasix] 20 mg PO DAILY 05/06/23 05/06/23 History predniSONE 5 mg PO DAILY 05/06/23 05/06/23 History Allergies Allergy/AdvReac Type Severity Reaction Status Date / Time No Known Allergies Allergy Verified 05/06/23 18:50 Physical Exam Vitals: Vital Signs Temp Pulse Resp BP Pulse Ox 05/07/23 12:00 98 F 89 18 124/85 95 05/07/23 10:36 93 18 119/57 92 L 05/07/23 07:36 100 05/07/23 07:26 100 96 05/07/23 07:25 90 22 137/81 95 05/07/23 05:22 74 20 05/07/23 02:59 77 19 134/83 05/07/23 01:00 88 18 134/83 95 05/06/23 22:00 110 H 21 144/80 93 L 05/06/23 21:27 117 H 05/06/23 21:14 107 H 20 129/78 05/06/23 21:13 105 H 05/06/23 21:00 101 H 20 129/78 94 L 05/06/23 20:00 108 H 24 129/78 95 05/06/23 19:00 96 24 151/80 96 05/06/23 18:53 93 05/06/23 18:38 92 05/06/23 18:29 92 20 151/80 94 L 05/06/23 17:26 98.6 F 98 19 151/80 95 Intake and Output 05/06/23 05/07/23 05/07/23 22:59 06:59 14:59 Output Total 400 Balance -400 Output: Urine 400 Other: Weight 99.79 kg Results CBC & Chem 7: 05/07/23 10:27 05/07/23 04:18 Labs: Abnormal Lab Results - Last 24 Hours (Table) 05/06/23 05/06/23 05/06/23 Range/Units 18:00 18:00 18:00 Plt Count 145 L (150-450) k/uL Neutrophils # 7.9 H (1.3-7.7) k/uL Lymphocytes # (1.0-4.8) k/uL Sodium (137-145) mmol/L Glucose 136 H (74-99) mg/dL Troponin I 0.867 H* (0.000-0.034) ng/mL 05/07/23 05/07/23 05/07/23 Range/Units 04:18 04:18 04:18 Plt Count 132 L (150-450) k/uL Neutrophils # (1.3-7.7) k/uL Lymphocytes # 0.5 L (1.0-4.8) k/uL Sodium 135 L (137-145) mmol/L Glucose 232 H (74-99) mg/dL Troponin I 1.300 H* (0.000-0.034) ng/mL 05/07/23 05/07/23 Range/Units 09:19 10:27 Plt Count 137 L (150-450) k/uL Neutrophils # 9.6 H (1.3-7.7) k/uL Lymphocytes # 0.5 L (1.0-4.8) k/uL Sodium (137-145) mmol/L Glucose (74-99) mg/dL Troponin I 1.090 H* (0.000-0.034) ng/mL
[2023-05-07] MEDS ORDERED: IOPAMIDOL-370 100ML BTL INJ ONE ×2 (14:12→14:15)
[2023-05-07] MEDS ORDERED: RX INFO: IV CONTRAST WAS GIVEN 1 EACH MISC MISCELLANE PRN (14:32)
[2023-05-07] MEDS ORDERED: ONDANSETRON 4 MG/2 ML VIAL IVP ONE (14:33)
[2023-05-07] MEDS ORDERED: SODIUM CHLORIDE 0.9% 1,000 ML IV SCH (14:45)
--- NOTE | 2023-05-07 15:05 | P.CARDCATH ---
Date of Procedure: 05/07/23 Description of Procedure: DIAGNOSTIC CORONARY ANGIOGRAPHY and LEFT HEART CATH REPORT PROCEDURES PERFORMED: Left heart catheterization Selective coronary angiography Moderate conscious sedation [60] mins HERNANDEZ graft angiography Saphenous vein graft angiography Right common femoral access Right common femoral arteriogram Angioseal Closure INDICATION: NSTEMI CONSENT: I have discussed the risks, benefits and alternative therapies for the above-mentioned procedure, sedation/analgesia and necessary blood product administration (if indicated, as they pertain to this patient). The patient has indicated understanding and acceptance of the risks and procedures discussed. Conscious Sedation: Patient's ECG, heart rate, blood pressure, pulse oximetry was monitored throughout the duration of procedure under the direct supervision. 2 mg Versed and 100 mg Fentanyl were used for induction of moderate conscious sedation. Total duration of 60 minutes. PROCEDURE:After the risks, benefits and alternatives of the above mentioned procedure explained in detail with the patient, informed consent was obtained. Patient was taken to the catheterization lab and prepped and draped in usual sterile fashion. Ultrasound was used to identify the right common femoral artery. 1% lidocaine was infiltrated over the right common femoral artery. Using ultrasound arterial access was obtained using micropuncture needle. A 6-Azeri sheath was placed in the right radial artery using modified Seldinger technique. J tipped wire was advanced under fluoroscopic guidance. Over the wire JL4 diagnostic catheter was advanced. Wire was removed, catheter was flushed and manipulated under fluoroscopy to selectively engaged the left coronary ostium. Left coronary angioplasty was performed in different angiographic projections. This catheter was exchanged for a JR4 diagnostic catheter over the wire. The catheter was flushed and manipulated to cross the aortic valve. LV pressures were obtained. Pullback was performed across aortic valve and catheter was manipulated to selectively engage the right coronary ostium under fluoroscopic guidance. Right coronary angiography was performed in different angiographic projections. Catheter was removed over the wire. Femoral sheath was flushed. Angioseal closure device was used to close the arteriotomy site. Appropriate patent hemostasis was achieved. The patient tolerated the procedure well. Patient was transported back to the post catheterization holding area in stable condition. Angiographic images were reviewed in detail. HEMODYNAMICS: Aortic Pressure: 175/80 mmHg. LV pressure: 205/26 mmHg. LVEDP 22 mmHg. There is a gradient of 30 mmHg across aortic valve Subclavian pressure 170/75 mmHg. Is a gradient of 5 mg across the left subclavian artery and aorta SELECTIVE CORONARY ARTERIOGRAPHY: LEFT MAIN: Left main is very sharp in his 100% occluded. It bifurcates into LAD and LCx. LEFT ANTERIOR DESCENDING CORONARY ARTERY: LAD is 100% occluded ostially. LEFT CIRCUMFLEX CORONARY ARTERY: 100% occluded. There is a small atrial branch that comes out of LCx which is patent. RIGHT CORONARY ARTERY: Dominant vessel. Proximal RCA is a prior stent is patent with minimal in-stent stenosis. Mid and distal RCA has 20-30% diffuse calcific disease. Prior stents are patent with 20-30% in-stent stenosis. It gives rise to PDA and PL branches. These branches of moderate nonobstructive disease. PDA has Competitive flow, suggesting the vein graft to RPDA was opened. Vein grafts: Saphenous vein graft to OM is patent. Distally it supplies OM 2 which retrogradely fills circumflex and supplies OM 3. Saphenous vein graft to PDA could not be localized. Prior cath from 4 years ago from [place] shows that the vein graft is atretic but patent. This most likely patent due to Competitive flow in PDA HERNANDEZ graft to LAD is patent. It is a good distal runoff with retrograde filling LAD and diagonal artery. IMPRESSION: Severe coronary artery disease of [place] vessels Moderate nonobstructive disease in [place] vessels distal to anastomosis. Patent vein graft to RPDA and OM Patent EHRNANDEZ graft to LAD Elevated LVEDP Moderate aortic stenosis. Peak to peak gradient 30 mmHg PLAN: Treat NSTEMI with medical management. Continue IV heparin for 48 hours Watch for platelets. Continue Plavix 75 mg daily which she was on his primary music pastor due to complicated RCA intervention 75 mL normal saline for 6 hours. IV diuretics Obtain an echocardiogram Performing Physician Niall Laird MD
--- NOTE | 2023-05-07 16:30 | CA ---
Transthoracic Echo Report Name: Demetrio Cordero Age: 83 Gender: M : 1940 Exam Date: 05/07/2023 09:53 Exam Location: [facility] Ht (in): 68 Wt (lb): 220 Ordering Physician: Heydi Bhardwaj MD Attending/Referring Phys: Education Teacher Daisy De La Torre [facility] Procedure CPT: Indications: S/P NM Cardiac Hx: Technical Quality: Technically difficult study Contrast 1: Lumason Total Dose (mL): 5 Contrast 2: Total Dose (mL): MEASUREMENTS (Male / Female) Normal Values 2D ECHO LV Diastolic Diameter PLAX 4.6 cm 4.2 - 5.9 / 3.9 - 5.3 cm LV Systolic Diameter PLAX 3.8 cm IVS Diastolic Thickness 1.3 cm 0.6 - 1.0 / 0.6 - 0.9 cm LVPW Diastolic Thickness 1.1 cm 0.6 - 1.0 / 0.6 - 0.9 cm LV Relative Wall Thickness 0.5 LVOT Diameter 2.0 cm M-MODE Aortic Root Diameter MM 3.2 cm LA Systolic Diameter MM 4.3 cm LA Ao Ratio MM 1.3 AV Cusp Separation MM 0.8 cm DOPPLER AV Peak Velocity 345.8 cm/s AV Peak Gradient 47.8 mmHg AV Mean Velocity 262.7 cm/s AV Mean Gradient 30.1 mmHg AV Velocity Time Integral 72.7 cm LVOT Peak Velocity 97.5 cm/s LVOT Peak Gradient 3.8 mmHg LVOT Velocity Time Integral 18.0 cm LVOT Stroke Volume 59.3 cm??? LVOT Stroke Volume Index 27.9 ml/m??? LVOT Cardiac Index 2373.1 cm???/min???m??? AV Area Cont Eq vti 0.8 cm??? AV Area Cont Eq pk 0.9 cm??? Mitral E Point Velocity 38.1 cm/s Mitral A Point Velocity 82.9 cm/s Mitral E to A Ratio 0.5 MV Deceleration Time 149.0 ms LV E' Lateral Velocity 5.4 cm/s Mitral E to LV E' Lateral Ratio 7.0 LV E' Septal Velocity 5.1 cm/s Mitral E to LV E' Septal Ratio 7.5 Right Atrial Pressure 8.0 mmHg FINDINGS Left Ventricle Moderately increased left ventricular wall thickness. Left ventricular cavity size normal. Left ventricular ejection fraction is estimated at 50-55%. Low normal left ventricular systolic function with no obvious regional wall motion abnormalities. Right Ventricle Right ventricle not well visualized. Right Atrium Normal right atrial size. Left Atrium Normal left atrial size. Mitral Valve Mitral annular calcification. Mild mitral regurgitation. Aortic Valve Diffuse thickening of the aortic valve cusps with reduced excursion. Moderate- to-severe aortic stenosis with a peak gradient of 47.82 mmHg and a mean gradient of 30.19 mmHg. Mild aortic regurgitation. Tricuspid Valve Structurally normal tricuspid valve. No tricuspid regurgitation. Pulmonic Valve Structurally normal pulmonic valve. Mild pulmonic regurgitation. Pericardium Minimal pericardial effusion (normal variant). Echo free space anterior to the right ventricle likely represents a fat pad. Aorta Normal size aortic root. CONCLUSIONS LVH with preserved systolic function Moderate to severe aortic stenosis Previewed by: Dr. Rome Davila MD (Electronically Signed) Final Date: 07 May 2023 16:29
[2023-05-07] MEDS: methylPREDNISolone SOD SUCCI 40 MG/ML 1 ML VIAL IV SCH ×2 (17:40→23:42)
[2023-05-07] MEDS ORDERED: CLOPIDOGREL 75 MG TAB PO SCH (23:45)
[2023-05-07 23:49] LABS: Glucose,Whole Blood 202 mg/dL (70-110)
[2023-05-07] MEDS ORDERED: DEXTROSE 50% SYRINGE 50 ML IVP PRN ×2 (23:56)
[2023-05-08] MEDS: DONEPEZIL 5 MG TAB PO SCH ×2 (00:46→21:54)
[2023-05-08 06:14] LABS: Glucose,Whole Blood 210 mg/dL (70-110)
[2023-05-08] MEDS: INSULIN ASPART (NovoLOG) 100 UNIT/ML VIAL SQ SCH ×4 (06:29→21:54)
[2023-05-08] MEDS ORDERED: HEPARIN SODIUM,PORCINE (1 ML) 2,500 UNIT in SODIUM CHLORIDE 0.9% 250 ML IRRIGATION PRN (07:00)
[2023-05-08] MEDS ORDERED: HEPARIN SODIUM,PORCINE 10,000 UNIT in SODIUM CHLORIDE 0.9% 1,000 ML IRRIGATION PRN (07:00)
[2023-05-08] MEDS ORDERED: ATORVASTATIN 80 MG TAB PO STA (07:48)
[2023-05-08] MEDS ORDERED: ASPIRIN 325 MG TAB PO STA (07:48)
[2023-05-08] MEDS ORDERED: ALPRAZolam 0.25 MG TAB PO PRN (07:48)
[2023-05-08] MEDS ORDERED: NITROGLYCERIN SL TABS 0.4 MG TAB SUBLINGUAL PRN ×2 (07:48→16:22)
[2023-05-08] MEDS: methylPREDNISolone SOD SUCCI 40 MG/ML 1 ML VIAL IV SCH (08:58)
[2023-05-08] MEDS: SODIUM CHLORIDE 0.9% 1,000 ML in EMPTY BAG 1 BAG IV SCH ×2 (08:58→18:15)
[2023-05-08] MEDS: FUROSEMIDE 10 MG/ML 2 ML VIAL IV SCH ×2 (08:58→21:53)
[2023-05-08] MEDS: IPRATROPIUM-ALBUTEROL 3 ML NEB INHALATION SCH ×4 (09:11→21:11)
[2023-05-08] MEDS: SYMBICORT 160-4.5 MCG INHALER INHALATION SCH ×2 (09:11→21:10)
[2023-05-08] MEDS ORDERED: bisacodyL 10 MG SUPP RECTAL PRN (11:55)
[2023-05-08 12:09] LABS: Glucose,Whole Blood 275 mg/dL (70-110)
[2023-05-08] MEDS: SENNOSIDES 8.6 MG TAB PO SCH ×2 (13:41→21:54)
[2023-05-08] MEDS ORDERED: VERAPAMIL 2.5 MG/ML 2 ML AMP ONE (14:37)
[2023-05-08] MEDS ORDERED: IV FLUID CONTINUATION 1,000 ML IV ONE (14:45)
[2023-05-08] MEDS ORDERED: fentaNYL (PF) 50 MCG/ML 2 ML AMP ONE (14:58)
[2023-05-08] MEDS: fentaNYL (PF) 50 MCG/ML 2 ML AMP IVP ONE ×2 (15:00→15:41)
[2023-05-08] MEDS ORDERED: LIDOCAINE 1% INJ 10MG/ML (20 ML MDV) SQ ONE (15:02)
[2023-05-08] MEDS ORDERED: HEPARIN SODIUM 1,000 UN/ML (10ML VL) ONE (15:06)
[2023-05-08] MEDS ORDERED: VERAPAMIL SYRINGE (5 MG/10 ML) INTRAARTER ONE (15:06)
[2023-05-08] MEDS: HEPARIN SODIUM 1,000 UN/ML (10ML VL) IV ONE ×2 (15:22→16:22)
[2023-05-08] MEDS ORDERED: CLOPIDOGREL 75 MG TAB PO ONE (15:22)
[2023-05-08] MEDS ORDERED: CLOPIDOGREL 75 MG TAB ONE (15:23)
[2023-05-08] MEDS ORDERED: MIDAZOLAM 2 MG/2 ML VIAL IVP ONE (15:37)
[2023-05-08] MEDS ORDERED: IOPAMIDOL-370 100ML BTL INJ ONE ×2 (15:43→16:22)
[2023-05-08] MEDS ORDERED: ONDANSETRON 4 MG/2 ML VIAL ONE (16:01)
[2023-05-08] MEDS ORDERED: ONDANSETRON 4 MG/2 ML VIAL IVP ONE (16:05)
[2023-05-08] MEDS ORDERED: ZOLPIDEM 5 MG TAB PO PRN (16:22)
[2023-05-08] MEDS ORDERED: ATROPINE SULFATE 0.1 MG/ML 10ML SYRINGE IV PRN (16:22)
[2023-05-08] MEDS ORDERED: RX INFO: IV CONTRAST WAS GIVEN 1 EACH MISC MISCELLANE PRN (16:22)
[2023-05-08] MEDS ORDERED: SODIUM CHLORIDE 0.9% 1,000 ML in EMPTY BAG 1 BAG IV SCH (16:30)
--- NOTE | 2023-05-08 16:33 | P.CARDCATH ---
Date of Procedure: 05/08/23 Description of Procedure: PERCUTANEOUS TRANSLUMINAL CORONARY ANGIOPLASTY CLINICAL INFORMATION: The patient is an 83-year-old male with a known history of CAD, status post CABG who presented with non-STEMI, underwent cardiac catheterization and was found to have obstructive disease involving the SVG to the OM . Recommendations were made regarding angioplasty and stenting. The procedure as well as the risks and the complications were discussed with the patient who was in full understanding and agreement. PROCEDURE: The patient was brought to the solar lab technician in the fasting and semi- sedated state and using Xylocaine anesthesia and the modified Seldinger technique a 6-Cambodian sheath was introduced in the left radial artery. A 6 Cambodian FR4 guiding catheter was introduced into the system. After cannulating the the ostium to the SVG, a 0.014 BMW J wire was advanced across the lesion and positioned distally. Following that a 3.0 x 12 mm NC Treck balloon was advanced and inflated at 14 atmosphere. After removing the balloon a CREAT intravascular ultrasound catheter was introduced and images were obtained. Subsequently attempted to advance a 3.5 x 23 mm Xience stent were unsuccessful, the stent was removed and a 6-Cambodian guide liner was introduced, repeat inflations with a 3.0 balloon and performed. Following that a 3.5 x 23 mm Xience shashank point stent was deployed. It was dilated at 18 jeannie. After removing the balloon a 3.5 x 20 mm NC Treck balloon was advanced and inflation and the s tent at 14 jeannie were done. After removing the stent After the last inflation, after appropriate wait, the balloon was withdrawn back into the guiding catheter. Images were obtained . Those images reveal stable successful stenting. At that point, the guiding catheter, the balloon, and guidewire were removed. The sheath was removed. Hemostasis was obtained with deployment of the TR band. There were no immediate complications. The patient was returned to the room in stable condition. Of note, the patient received 7500 units of heparin and continued on Plavix. His ACT was followed. There was no immediate complications. He had chest discomfort and EKG changes that resolved at the end of the procedure RESULTS: Successful stenting of the SVG to the OM with reduction of stenosis from 90 % to less than 5 % with intravascular ultrasound imaging. RECOMMENDATIONS: The patient will continue on aspirin and Plavix for 1 year with no interruption in addition to aggressive coronary risks modifications. The findings and recommendations were discussed with the patient and the family, they are in full understanding and agreement. Duration of sedation: 69 minutes
--- NOTE | 2023-05-08 16:43 | P.PN ---
Subjective Progress Note Date: 05/08/23 I am seeing this patient in new consultation today 05/07/2023 in the emergency room for suspected exacerbation of diastolic congestive heart failure and COPD. This is a pleasant 82-year-old male patient with a history of oxygen and prednisone dependent COPD, coronary artery disease status post CABG and s ubsequent PCI, congestive heart failure, hyperlipidemia, generalized anxiety disorder, obesity, obstructive sleep apnea on CPAP. He does follow with Dr. Ortega in the office for management of his COPD. Patient presented to the emergency room yesterday evening complaining of shortness of breath that started approximately 48 hours ago, associated with a nonproductive cough. Denies any fevers, chills, myalgias, hemoptysis. Denies sick contacts or travel history. Denies chest pain, heart palpitations, lower extremity swelling. Admits orthopnea. Patient was hospitalized 2 months ago with similar symptoms. He is currently sitting up in bed, on 3 L/m nasal cannula, in no acute distress. [facility]i st x-ray on arrival showed cardiomegaly, with pulmonary vascular congestions, and bilateral pleural effusions consistent with CHF exacerbation. NT proBNP was only mildly elevated, however, at 267. Troponins were elevated at 0.867. ECG shows normal sinus rhythm with a right bundle branch block and nonspecific T- wave inversion. CBC on arrival was unremarkable without any leukocytosis. BMP on arrival was also unremarkable. Normal saline is currently infusing at 130 ML's per hour. Afebrile. Patient is hemodynamically stable. On today's evaluation of a 05/08 2023, the patient seems to be more comfortable on 2 L of Oxymizer nasal cannula. The patient remains on Lasix 20 mg IV every 12 hours. The patient underwent a cardiac catheterization yesterday and the results were noted. In summary, the patient was found to have severe coronary artery disease of the [place] coronary arteries. There was moderate nonobstructive disease involving the [place] vessels distal to the anastomosis. The venous graft to OM and PDA was patent, HERNANDEZ was patent to LAD, there was elevated left anterior diastolic pressure and the patient was found to have moderate degree of aortic stenosis with a peak gradient of 30. Subsequently the patient was taken back to the airport maintenance laborer and the patient has successful stenting of the SVG to OM with a reduction of the stenosis from 90% down to 5%. Echocardiogram was done and it showed a preserved LV function with an EF of around 50-55%. The patient had moderate to severe aortic stenosis. He has no other complaints otherwise. History of any chest pain. His troponin peaked at 1.09. HbA1c is at 7.3. Objective - Vital Signs Vital signs: Vital Signs Temp 98 F 05/08/23 12:00 Pulse 90 05/08/23 12:00 Resp 18 05/08/23 12:00 BP 152/73 05/08/23 12:00 Pulse Ox 94 L 05/08/23 12:00 FiO2 Intake & Output 05/07/23 05/08/23 05/08/23 18:59 06:59 18:59 Intake Total 650 560 Output Total 475 250 450 Balance 175 -250 110 Weight 99.79 kg Intake: IV 50 200 Oral 600 360 Output: Urine 475 250 450 Other: Voiding Method Urinal Urinal - Exam GENERAL EXAM: Alert, 83-year-old white male, comfortable in no apparent distress. The patient has been weaned down to room air oxygen HEAD: Normocephalic and atraumatic EYES: Normal reaction of pupils, equal size. NOSE: Clear with pink turbinates. THROAT: No erythema or exudates. NECK: No masses, no JVD. CHEST: No chest wall deformity. LUNGS: Equal air entry with bibasilar inspiratory crackles and minimal expiratory wheezes throughout. No conversational dyspnea or accessory muscle use.. CVS: S1 and S2 normal with no audible murmur, regular rhythm. No extra heart sounds ABDOMEN: No hepatosplenomegaly, active bowel sounds, no guarding or rigidity. SPINE: No scoliosis or deformity SKIN: No rashes CENTRAL NERVOUS SYSTEM: No focal deficits, tone is normal in all 4 extremities. EXTREMITIES: There is no peripheral edema, clubbing, or cyanosis. Peripheral pulses are intact. - Labs CBC & Chem 7: 05/07/23 10:27 05/07/23 04:18 Labs: Abnormal Lab Results - Last 24 Hours (Table) 05/07/23 05/07/23 05/08/23 Range/Units 10:27 23:47 06:13 POC Glucose (mg/dL) 202 H 210 H (70-110) mg/dL Hemoglobin A1c 7.3 H (<=6.0) % 05/08/23 Range/Units 12:06 POC Glucose (mg/dL) 275 H (70-110) mg/dL Hemoglobin A1c (<=6.0) % Assessment and Plan Assessment: Acute on chronic hypoxemic respiratory failure, currently on 3 L/m nasal cannula, multifactorial secondary to exacerbation of diastolic congestive heart failure and mild COPD exacerbation. Chest x-ray on arrival showed cardiomegaly, with pulmonary vascular congestions, and bilateral pleural effusions consistent with CHF exacerbation. NT proBNP was only mildly elevated, however, at 267. Most recent echocardiogram from 06/16/2022 shows a preserved left ventricular ejection fraction of 50-55%, with moderately increased LVH, and moderate aortic stenosis. The patient was diabetes and he responded to diuretics and the patient is currently on room air oxygen Acute non-ST segment elevation myocardial infarction, cardiac catheterization was done and the patient underwent further intervention with stenting of the SVG to obtuse marginal Moderate degree of aortic stenosis, please refer to the echocardiogram in the cardiac catheterization report Moderate chronic obstructive pulmonary disease, baseline FEV1 72% of predicted. Patient is oxygen dependent and the patient has been utilizing a bit on about treatments 4 times a day [id number] and recently hospitalized for an acute COPD exacerbation Coronary artery disease, with previous CABG and subsequent PCI, followed up by Dr. Vuong from cardiology Hyperlipidemia Obesity, with a BMI of 33.5 kg/m Obstructive sleep apnea, with home CPAP Generalized anxiety disorder Remote ex-smoker Plan: Continue Lasix 20 mg IV every 12 hours for another 24 hours Continue aspirin and Plavix Continue metoprolol at a dose of 25 mg twice a day Continue Zestril 5 mg by mouth daily Oxygenation is improved We'll continue to follow him make further recommendations based on his progress. Clinical Social Work Aide on the case. 'll admit to telemetry interval continue to follow. Monitor troponins. This evaluation was on a more than 30 minutes.
[2023-05-08 17:03] LABS: Glucose,Whole Blood 171 mg/dL (70-110)
[2023-05-08] MEDS: EZETIMIBE 10 MG TAB PO SCH (17:11)
[2023-05-08] MEDS: ISOSORBIDE MONONITRATE ER 30 MG TAB.ER.24H PO SCH (17:12)
[2023-05-08 20:11] LABS: HCT 38.2 % (39.0-53.0); HGB 13.3 gm/dL (13.0-17.5); MCH 32.6 pg (25.0-35.0); MCHC 34.7 g/dL (31.0-37.0); MCV 94.1 fL (80.0-100.0); Mean Platelet Volume 11.6; RBC 4.06 m/uL (4.30-5.90); RDW 13.7 % (11.5-15.5); WBC 16.9 k/uL (3.8-10.6)
[2023-05-08 21:04] LABS: Glucose,Whole Blood 176 mg/dL (70-110)
[2023-05-08] MEDS: METOPROLOL TARTRATE 25 MG TAB PO SCH (21:54)
--- NOTE | 2023-05-09 06:29 | P.PN ---
Subjective Progress Note Date: 05/08/23 A 83-year-old the male came in with compensative chest pain denied any fever chills patient is found have elevated troponins first one is alert to around 0.8 going up to around 1.3. Chest x-ray showed bilateral pleural effusions patient had a previous echocardiogram which showed normal ejection fraction and the EKG showed some nonspecific T-wave inversions. Patient's BNP is essentially within normal limits. 05/08/2023 Patient is seen and evaluated this morning currently sitting up in the chair is status post diagnostic cardiac catheterization and scheduled to undergo cardiac catheterization with stenting today. Family at bedside and upset as patient consented himself for the initial cardiac catheterization and daughter at bedside reports he has dementia and very forgetful and feels does not understand what surgical procedures he is going through. Family is demanding to speak with cardiology. Family initially wanted transfer to 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 Patient is afebrile denies chest pain or shortness of breath. Patient also being monitored by pulmonary for COPD exacerbation. Patient is continued on 3 L via nasal cannula. Patient is reporting some nausea with upset stomach and feels is because he has not had a bowel movement since before admission. We'll add some stool softeners along with nausea medication as needed. Review of systems: Constitutional: No reports of fatigue, fever, or chills Cardiovascular: No reports of chest pain or palpitations Respiratory: No reports of shortness of breath or cough GI: reports of waves of nausea, no vomiting, reports feeling somewhat constipated and no bowel movement since before admission : No reports of dysuria or retention Neurovascular: No reports of weakness or numbness PHYSICAL EXAMINATION: GENERAL: The patient is alert and oriented x3, not in any acute distress. Well developed, well nourished. Obese. HEENT: Pupils are round and equally reacting to light. EOMI. No scleral icterus. No conjunctival pallor. Normocephalic, atraumatic. No pharyngeal erythema. No thyromegaly. CARDIOVASCULAR: S1 and S2 present. No murmurs, rubs, or gallops. PULMONARY: Breath sounds slightly diminished bilateral with some scattered rhonchi noted. ABDOMEN: Soft, obese, nontender, nondistended, normoactive bowel sounds. No palpable organomegaly. MUSCULOSKELETAL: No joint swelling or deformity. EXTREMITIES: No cyanosis, clubbing, or pedal edema. NEUROLOGICAL: Gross neurological examination did not reveal any focal deficits. SKIN: No rashes. Assessment: -Acute non-ST elevation myocardial infarction: Patient was started on IV heparin, patient scheduled to undergo cardiac catheterization with stenting today. Patient underwent diagnostic catheterization yesterday. Patient is continued on statin and aspirin along with Plavix -Mild congestive heart failure may be acute systolic dysfunction as well as exacerbation of chronic diastolic dysfunction. Echocardiogram pending -COPD without any acute exacerbation -Dementia history per daughter -Hyperlipidemia -Sleep apnea uses CPAP machine at home -Obesity with BMI of 33.5 -DVT prophylaxis: Patient is on IV heparin at this time -Full code Plan: Patient scheduled to undergo interventional cardiac catheterization with stenting today and family is at bedside awaiting to speak with cardiology as he has many questions and concerns. Initially family wanted transfer to 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 Will discuss further with cardiology. Continue current medications and maintained on heparin awaiting catheterization Continue breathing treatments and weaning FiO2 as tolerated. Pulmonary following Patient reporting feeling constipated with some brief periods of nausea will add bowel regimen The impression and plan of care has been dictated by Nisreen Esparza, Nurse Practitioner as directed. Dr. Pia MD I have performed a history and examination and MDM of this patient, discussed the same with the dictator, and agree with the dictator's assessment and plan as written ,documented as a scribe. Based on total visit time, I have performed more than 50% of the visit. Objective - Vital Signs Vital signs: Vital Signs Temp 98.2 F 05/07/23 17:54 Pulse 87 05/08/23 09:25 Resp 18 05/08/23 04:00 BP 133/73 05/08/23 04:00 Pulse Ox 96 05/08/23 09:12 FiO2 Intake & Output 05/07/23 05/08/23 05/08/23 18:59 06:59 18:59 Intake Total 650 360 Output Total 475 250 Balance 175 -250 360 Weight 99.79 kg Intake: IV 50 Oral 600 360 Output: Urine 475 250 Other: Voiding Method Urinal - Labs CBC & Chem 7: 05/08/23 19:53 05/07/23 04:18 Labs: Abnormal Lab Results - Last 24 Hours (Table) 05/07/23 05/07/2323 Range/Units 09:19 10:27 23:47 Plt Count 137 L (150-450) k/uL Neutrophils # 9.6 H (1.3-7.7) k/uL Lymphocytes # 0.5 L (1.0-4.8) k/uL POC Glucose (mg/dL) 202 H (70-110) mg/dL Troponin I 1.090 H* (0.000-0.034) ng/mL 05/08/23 Range/Units 06:13 Plt Count (150-450) k/uL Neutrophils # (1.3-7.7) k/uL Lymphocytes # (1.0-4.8) k/uL POC Glucose (mg/dL) 210 H (70-110) mg/dL Troponin I (0.000-0.034) ng/mL
[2023-05-09 06:48] LABS: Glucose,Whole Blood 144 mg/dL (70-110)
[2023-05-09] MEDS: INSULIN ASPART (NovoLOG) 100 UNIT/ML VIAL SQ SCH ×4 (06:54→21:34)
[2023-05-09] MEDS: SODIUM CHLORIDE 0.9% 1,000 ML in EMPTY BAG 1 BAG IV SCH ×2 (06:54→14:42)
[2023-05-09 07:53] LABS: Basophils % (A) 0 %; Eosinophils % (A) 0 %; HCT 40.2 % (39.0-53.0); HGB 13.6 gm/dL (13.0-17.5); Lymphocytes # (A) 1.4 k/uL (1.0-4.8); Lymphocytes % (A) 13 %; MCH 32.1 pg (25.0-35.0); MCHC 33.9 g/dL (31.0-37.0); MCV 94.6 fL (80.0-100.0); Mean Platelet Volume 10.4; Monocytes # (A) 0.9 k/uL (0-1.0); Monocytes % (A) 8 %; Neutrophils # (A) 8.6 k/uL (1.3-7.7); Neutrophils % (A) 77 %; Platelet Count 136 k/uL (150-450); RBC 4.25 m/uL (4.30-5.90); RDW 13.8 % (11.5-15.5); WBC 11.2 k/uL (3.8-10.6)
[2023-05-09] MEDS: SYMBICORT 160-4.5 MCG INHALER INHALATION SCH ×2 (08:37→19:44)
[2023-05-09] MEDS: IPRATROPIUM-ALBUTEROL 3 ML NEB INHALATION SCH ×5 (08:37→19:44)
[2023-05-09] MEDS ORDERED: CLOPIDOGREL 75 MG TAB PO SCH (09:00)
[2023-05-09] MEDS ORDERED: FUROSEMIDE 20 MG TAB PO SCH (09:00)
[2023-05-09] MEDS: EZETIMIBE 10 MG TAB PO SCH (09:15)
[2023-05-09] MEDS: SENNOSIDES 8.6 MG TAB PO SCH ×2 (09:15→21:34)
[2023-05-09] MEDS: METOPROLOL TARTRATE 25 MG TAB PO SCH ×2 (09:15→21:34)
[2023-05-09] MEDS: ASPIRIN 81 MG PO SCH (09:15)
[2023-05-09] MEDS: ATORVASTATIN 40 MG TAB PO SCH (09:15)
[2023-05-09] MEDS: lisinopriL 5 MG TAB PO SCH (09:16)
[2023-05-09] MEDS: CLOPIDOGREL 75 MG TAB PO SCH (09:16)
[2023-05-09] MEDS: ISOSORBIDE MONONITRATE ER 30 MG TAB.ER.24H PO SCH (09:16)
[2023-05-09 10:30] LABS: African American GFR (CKD) 83 (>60 ml/min/1.73 sqM); Anion Gap 9 mmol/L; Blood Urea Nitrogen 28 mg/dL (9-20); Calcium 8.2 mg/dL (8.4-10.2); Carbon Dioxide 26 mmol/L (22-30); Chloride 102 mmol/L (98-107); Glucose 119 mg/dL (74-99); Non-African American GFR(CKD) 72 (>60 ml/min/1.73 sqM); Potassium 3.8 mmol/L (3.5-5.1); Sodium 137 mmol/L (137-145)
[2023-05-09] MEDS: BUMETANIDE 1 MG TAB PO SCH ×2 (11:53→16:14)
[2023-05-09 12:01] LABS: Glucose,Whole Blood 131 mg/dL (70-110)
--- NOTE | 2023-05-09 12:50 | P.PN ---
Subjective Progress Note Date: 05/09/23 I am seeing this patient in new consultation today 05/07/2023 in the emergency room for suspected exacerbation of diastolic congestive heart failure and COPD. This is a pleasant 82-year-old male patient with a history of oxygen and prednisone dependent COPD, coronary artery disease status post CABG and s ubsequent PCI, congestive heart failure, hyperlipidemia, generalized anxiety disorder, obesity, obstructive sleep apnea on CPAP. He does follow with Dr. Ortega in the office for management of his COPD. Patient presented to the emergency room yesterday evening complaining of shortness of breath that started approximately 48 hours ago, associated with a nonproductive cough. Denies any fevers, chills, myalgias, hemoptysis. Denies sick contacts or travel history. Denies chest pain, heart palpitations, lower extremity swelling. Admits orthopnea. Patient was hospitalized 2 months ago with similar symptoms. He is currently sitting up in bed, on 3 L/m nasal cannula, in no acute distress. [facility] st x-ray on arrival showed cardiomegaly, with pulmonary vascular congestions, and bilateral pleural effusions consistent with CHF exacerbation. NT proBNP was only mildly elevated, however, at 267. Troponins were elevated at 0.867. ECG shows normal sinus rhythm with a right bundle branch block and nonspecific T- wave inversion. CBC on arrival was unremarkable without any leukocytosis. BMP on arrival was also unremarkable. Normal saline is currently infusing at 130 ML's per hour. Afebrile. Patient is hemodynamically stable. On today's evaluation of a 05/08 2023, the patient seems to be more comfortable on 2 L of Oxymizer nasal cannula. The patient remains on Lasix 20 mg IV every 12 hours. The patient underwent a cardiac catheterization yesterday and the results were noted. In summary, the patient was found to have severe coronary artery disease of the knik coronary arteries. There was moderate nonobstructive disease involving the knik vessels distal to the anastomosis. The venous graft to OM and PDA was patent, HERNANDEZ was patent to LAD, there was elevated left anterior diastolic pressure and the patient was found to have moderate degree of aortic stenosis with a peak gradient of 30. Subsequently the patient was taken back to the dental laboratory supervisor and the patient has successful stenting of the SVG to OM with a reduction of the stenosis from 90% down to 5%. Echocardiogram was done and it showed a preserved LV function with an EF of around 50-55%. The patient had moderate to severe aortic stenosis. He has no other complaints otherwise. History of any chest pain. His troponin peaked at 1.09. HbA1c is at 7.3. On today's evaluation of a 05/09 2023, the patient is feeling better. No chest pain.the patient is post cardiac catheterization and stenting of the SVG to OM. He is currently on aspirin and Plavix. He is also on metoprolol. History of any chest pain. He is also known to have moderate degree of aortic stenosis. He is currently on room air oxygen. He does have some coarse crackles in lung bases bilaterally. Suspect some background pulmonary fibrosis in lung bases. Labs from today was noted. BUN is at 28 with a creatinine of 0.9. The physical 11.2 with a hemoglobin of 13.6. Platelet count is at 136. Admitting count is some limited hemoptysis earlier/bloody mucus which is expected as the patient is currently on aspirin and Plavix and he does have moderate to severe degree of aortic stenosis. He is previous CAT scan of the chest was noted and there is no evidence of any lung masses. There may be some background bibasilar pulmonary fibrosis. Objective - Vital Signs Vital signs: Vital Signs Temp 97.1 F L 05/09/23 08:00 Pulse 80 05/09/23 08:52 Resp 16 05/09/23 08:00 BP 112/63 05/09/23 08:00 Pulse Ox 95 05/09/23 08:00 FiO2 21 05/09/23 01:35 Intake & Output 05/08/23 05/09/23 05/09/23 18:59 06:59 18:59 Intake Total 560 360 Output Total 450 200 Balance 110 -200 360 Weight 95.1 kg Intake: IV 200 Oral 360 360 Output: Urine 450 200 Other: Voiding Method Urinal Urinal Urinal - Exam GENERAL EXAM: Alert, 83-year-old white male, comfortable in no apparent distress. The patient has been weaned down to room air oxygen HEAD: Normocephalic and atraumatic EYES: Normal reaction of pupils, equal size. NOSE: Clear with pink turbinates. THROAT: No erythema or exudates. NECK: No masses, no JVD. CHEST: No chest wall deformity. LUNGS: Equal air entry with bibasilar inspiratory crackles and minimal expiratory wheezes throughout. No conversational dyspnea or accessory muscle use.. CVS: S1 and S2 normal with no audible murmur, regular rhythm. No extra heart sounds ABDOMEN: No hepatosplenomegaly, active bowel sounds, no guarding or rigidity. SPINE: No scoliosis or deformity SKIN: No rashes CENTRAL NERVOUS SYSTEM: No focal deficits, tone is normal in all 4 extremities. EXTREMITIES: There is no peripheral edema, clubbing, or cyanosis. Peripheral pulses are intact. - Labs CBC & Chem 7: 05/09/23 06:57 05/09/23 06:57 Labs: Abnormal Lab Results - Last 24 Hours (Table) 05/07/23 05/08/23 05/08/23 Range/Units 10:27 12:06 17:00 WBC (3.8-10.6) k/uL RBC (4.30-5.90) m/uL Hct (39.0-53.0) % Plt Count (150-450) k/uL Neutrophils # (1.3-7.7) k/uL BUN (9-20) mg/dL Glucose (74-99) mg/dL POC Glucose (mg/dL) 275 H 171 H (70-110) mg/dL Hemoglobin A1c 7.3 H (<=6.0) % Calcium (8.4-10.2) mg/dL 05/08/23 05/08/23 05/09/23 Range/Units 19:53 21:02 06:36 WBC 16.9 H (3.8-10.6) k/uL RBC 4.06 L (4.30-5.90) m/uL Hct 38.2 L (39.0-53.0) % Plt Count (150-450) k/uL Neutrophils # (1.3-7.7) k/uL BUN (9-20) mg/dL Glucose (74-99) mg/dL POC Glucose (mg/dL) 176 H 144 H (70-110) mg/dL Hemoglobin A1c (<=6.0) % Calcium (8.4-10.2) mg/dL 05/09/23 05/09/23 Range/Units 06:57 06:57 WBC 11.2 H (3.8-10.6) k/uL RBC 4.25 L (4.30-5.90) m/uL Hct (39.0-53.0) % Plt Count 136 L (150-450) k/uL Neutrophils # 8.6 H (1.3-7.7) k/uL BUN 28 H (9-20) mg/dL Glucose 119 H (74-99) mg/dL POC Glucose (mg/dL) (70-110) mg/dL Hemoglobin A1c (<=6.0) % Calcium 8.2 L (8.4-10.2) mg/dL Assessment and Plan Assessment: Acute on chronic hypoxemic respiratory failure, currently on 3 L/m nasal cannula, multifactorial secondary to exacerbation of diastolic congestive heart failure and mild COPD exacerbation. Chest x-ray on arrival showed cardiomegaly, with pulmonary vascular congestions, and bilateral pleural effusions consistent with CHF exacerbation. NT proBNP was only mildly elevated, however, at 267. Most recent echocardiogram from 06/16/2022 shows a preserved left ventricular ejection fraction of 50-55%, with moderately increased LVH, and moderate aortic stenosis. The patient was diabetes and he responded to diuretics and the patient is currently on room air oxygen Acute non-ST segment elevation myocardial infarction, cardiac catheterization was done and the patient underwent further intervention with stenting of the SVG to obtuse marginal Moderate degree of aortic stenosis, please refer to the echocardiogram in the cardiac catheterization report Moderate chronic obstructive pulmonary disease, baseline FEV1 72% of predicted. Patient is oxygen dependent and the patient has been utilizing a bit on about treatments 4 times a day [id number] and recently hospitalized for an acute COPD exacerbation Coronary artery disease, with previous CABG and subsequent PCI, followed up by Dr. Vuong from cardiology Hyperlipidemia Obesity, with a BMI of 33.5 kg/m Obstructive sleep apnea, with home CPAP Generalized anxiety disorder Remote ex-smoker Plan: Clinically stable and the patient denies having any shortness of breath or chest pain. Review of the previous CAT scan of the chest and there may be a suspicion for bi basilar pulmonary fibrosis. Patient is currently on room air oxygen Diuretics were discontinued Continue aspirin and Plavix Continue metoprolol at a dose of 25 mg twice a day Continue Zestril 5 mg by mouth daily Oxygenation is improved We'll continue to follow him make further recommendations based on his progress. Net Maker on the case. Follow-up with cardiology. Follow-up with pulmonary. Possible discharge today
[2023-05-09 14:01] VITALS: BMI 31.8
--- NOTE | 2023-05-09 14:03 | P.PN ---
Subjective HISTORY OF PRESENT ILLNESS: This is an 83-year-old male who underwent cardiac catheterization yesterday with Dr. Mckeon. Patient had 2 stents placed to the SVG to OM. Patient remains on aspirin and Plavix. Patient does report having a cough this afternoon with hemoptysis. He denies any chest pain or pressure. He denies any shortness of breath. Hemoglobin is stable at 13.6. Echocardiogram reveals ejection fraction 50-55% with moderate to severe aortic stenosis. PHYSICAL EXAM: VITAL SIGNS: Reviewed. GENERAL: Well-developed in no acute distress. NECK: Supple. No JVD or thyromegaly LUNGS: Respirations even and unlabored. Lungs diminished with bibasilar crackles HEART: Regular rate and rhythm. S1 and S2 heard. Systolic murmur noted. EXTREMITIES: Normal range of motion. No clubbing or cyanosis. Peripheral pulses intact. No lower extremity edema ASSESSMENT: NSTEMI, status post cardiac cath with stent placement 2 to SVG to OM Hemoptysis Acute on chronic heart failure with preserved LV systolic function COPD Hypertension Hyperlipidemia Obstructive sleep apnea PLAN: Continue dual antiplatelet therapy with aspirin and Plavix Continue atorvastatin 40 mg daily Discontinue Lasix. Begin Bumex 1 mg by mouth twice a day Daily weights, accurate I&O, and monitoring of kidney function Obtain CT of the chest without contrast Further recommendations pending patient's course Dr. Laird's Addendum Patient was admitted with worsening shortness of breath and substernal chest pressure. He has signs of congestive heart failure with pulmonary congestion. This is HFpEF exacerbation as his systolic function is preserved. His echo did not show any wall motion abnormality. Due to elevated troponins, and his symptomatology, he was scheduled for a cardiac catheterization which showed 90% stenosis in vein graft to OM. This was intervened to stents. This morning he was having cough and mild blood in sputum. For this we will obtain a chest computed tomography scan make sure he doesn't have any pneumonia. We have been careful as he is on DAPT therapy. Give him Bumex 1 mg. Monitor renal function tomorrow I have personally seen and examined the patient. I have personally performed all the components of medical care documented above including detailed histoy, review of system, physican exam, and formulating the assessment and plan. I have personally reviewed the relevant labs, imaging and other diagnostics. I have discussed this in detail with my CNA LTC who has helped me with this documentation. I have carefully reviewed this document before finalizing. Thank you for letting cardiology team participating in this patient's care. Dr. Niall Laird MD Cardiovascular Disease Objective - Vital Signs Vital signs: Vital Signs Temp 98 F 05/09/23 12:00 Pulse 72 05/09/23 12:14 Resp 16 05/09/23 12:00 BP 120/76 05/09/23 12:00 Pulse Ox 97 05/09/23 12:00 FiO2 21 05/09/23 01:35 Intake & Output 05/08/23 05/09/23 05/09/23 18:59 06:59 18:59 Intake Total 560 478 Output Total 450 200 Balance 110 -200 478 Weight 95.1 kg Intake: IV 200 Oral 360 478 Output: Urine 450 200 Other: Voiding Method Urinal Urinal Urinal - Labs CBC & Chem 7: 05/09/23 06:57 05/09/23 06:57 Labs: Abnormal Lab Results - Last 24 Hours (Table) 05/07/23 05/08/23 05/08/23 Range/Units 10:27 17:00 19:53 WBC 16.9 H (3.8-10.6) k/uL RBC 4.06 L (4.30-5.90) m/uL Hct 38.2 L (39.0-53.0) % Plt Count (150-450) k/uL Neutrophils # (1.3-7.7) k/uL BUN (9-20) mg/dL Glucose (74-99) mg/dL POC Glucose (mg/dL) 171 H (70-110) mg/dL Hemoglobin A1c 7.3 H (<=6.0) % Calcium (8.4-10.2) mg/dL 05/08/23 05/09/23 05/09/23 Range/Units 21:02 06:36 06:57 WBC 11.2 H (3.8-10.6) k/uL RBC 4.25 L (4.30-5.90) m/uL Hct (39.0-53.0) % Plt Count 136 L (150-450) k/uL Neutrophils # 8.6 H (1.3-7.7) k/uL BUN (9-20) mg/dL Glucose (74-99) mg/dL POC Glucose (mg/dL) 176 H 144 H (70-110) mg/dL Hemoglobin A1c (<=6.0) % Calcium (8.4-10.2) mg/dL 05/09/23 05/09/23 Range/Units 06:57 11:49 WBC (3.8-10.6) k/uL RBC (4.30-5.90) m/uL Hct (39.0-53.0) % Plt Count (150-450) k/uL Neutrophils # (1.3-7.7) k/uL BUN 28 H (9-20) mg/dL Glucose 119 H (74-99) mg/dL POC Glucose (mg/dL) 131 H (70-110) mg/dL Hemoglobin A1c (<=6.0) % Calcium 8.2 L (8.4-10.2) mg/dL
[2023-05-09] MEDS: MAG HYDROX/AL HYDROX/SIMETH 30 ML CUP PO PRN (16:14)
[2023-05-09] MEDS: ALPRAZolam 0.5 MG TAB PO PRN ×2 (16:14→22:24)
[2023-05-09 16:16] LABS: Glucose,Whole Blood 99 mg/dL (70-110)
--- NOTE | 2023-05-09 16:39 | P.PN ---
Subjective Progress Note Date: 05/09/23 A 83-year-old the male came in with compensative chest pain denied any fever chills patient is found have elevated troponins first one is alert to around 0.8 going up to around 1.3. Chest x-ray showed bilateral pleural effusions patient had a previous echocardiogram which showed normal ejection fraction and the EKG showed some nonspecific T-wave inversions. Patient's BNP is essentially within normal limits. 05/08/2023 Patient is seen and evaluated this morning currently sitting up in the chair is status post diagnostic cardiac catheterization and scheduled to undergo cardiac catheterization with stenting today. Family at bedside and upset as patient consented himself for the initial cardiac catheterization and daughter at bedside reports he has dementia and very forgetful and feels does not understand what surgical procedures he is going through. Family is demanding to speak with cardiology. Family initially wanted transfer to [facility] where his systems architect is and awaiting to talk to cardiology here. Patient is afebrile denies chest pain or shortness of breath. Patient also being monitored by pulmonary for COPD exacerbation. Patient is continued on 3 L via nasal cannula. Patient is reporting some nausea with upset stomach and feels is because he has not had a bowel movement since before admission. We'll add some stool softeners along with nausea medication as needed. 05/09/2023 Patient is seen and evaluated in follow-up this morning is status post cardiac catheterization yesterday with 2 stents placed in patient remains on aspirin and Plavix. Patient was having some cough this afternoon and developed some blood clots and hemoptysis. Hemoglobin is stable above 13. CT chest is ordered and pending at this time. Pulmonary is following as well with concerns of COPD exacerbation. Patient on exam is sitting up in the chair on room air denies worsening shortness of breath. Patient is tolerating diet with no reports of nausea or vomiting. Patient denied any further abdominal pain or constipation on exam. Patient will continue on stool softeners as needed. Patient is afebrile with no reported chest pain or palpitations. Will have PT/OT therapy evaluate the patient. Follow-up labs in the a.m. Monitor hemoglobin closely and monitor for any further signs of bleeding. Review of systems: Constitutional: No reports of fatigue, fever, or chills Cardiovascular: No reports of chest pain or palpitations Respiratory: No reports of worsening shortness of breath or cough GI: No reports of nausea, no vomiting : No reports of dysuria or retention Neurovascular: No reports of weakness or numbness PHYSICAL EXAMINATION: GENERAL: The patient is alert and oriented x3, not in any acute distress. Well developed, well nourished. Obese. HEENT: Pupils are round and equally reacting to light. EOMI. No scleral icterus. No conjunctival pallor. Normocephalic, atraumatic. No pharyngeal erythema. No thyromegaly. CARDIOVASCULAR: S1 and S2 present. No murmurs, rubs, or gallops. PULMONARY: Breath sounds slightly diminished bilateral with some scattered rhonchi noted. ABDOMEN: Soft, obese, nontender, nondistended, normoactive bowel sounds. No palpable organomegaly. MUSCULOSKELETAL: No joint swelling or deformity. EXTREMITIES: No cyanosis, clubbing, or pedal edema. NEUROLOGICAL: Gross neurological examination did not reveal any focal deficits. SKIN: No rashes. Assessment: -Acute non-ST elevation myocardial infarction: Status post cardiac c atheterization with stenting 2 to SVG to OM. Patient is continued on statin and aspirin along with Plavix -Acute on chronic congestive heart failure with preserved EF -Hemoptysis -COPD without any acute exacerbation -Dementia history per daughter -Hyperlipidemia -Sleep apnea uses CPAP machine at home -Obesity with BMI of 33.5 -DVT prophylaxis: Patient is on IV heparin at this time -Full code Plan: Patient underwent cardiac catheterization with stenting 2 Patient also being followed by cardiology as well as pulmonary. Patient had some coughing spell and hemoptysis and CT chest ordered and pending. Hemoglobin is stable above 13 and will follow-up with repeat labs Patient was on IV Lasix twice daily and is being transitioned to Bumex. Labs reviewed and kidney functions within normal limits other than BUN is slightly high at 28 and creatinine is 0.98. Sodium is 137 with a potassium of 3.8 Continue current medications Awaiting PT/OT therapy evaluation Continue breathing treatments and weaning FiO2 as tolerated. Patient was on room air during exam today. Pulmonary following Will follow-up on repeat labs monitor for any further bleeding and await CT chest with possible discharge planning in the next 24-48 hours. Will await cardiology and pulmonary clearance. The impression and plan of care has been dictated by Nisreen Esparza, Nurse Practitioner as directed. Dr. Pia MD I have performed a history and examination and MDM of this patient, discussed th e same with the dictator, and agree with the dictator's assessment and plan as written ,documented as a scribe. Based on total visit time, I have performed more than 50% of the visit. Objective - Vital Signs Vital signs: Vital Signs Temp 98 F 05/09/23 12:00 Pulse 72 05/09/23 12:14 Resp 16 05/09/23 15:31 BP 120/76 05/09/23 12:00 Pulse Ox 97 05/09/23 12:00 FiO2 21 05/09/23 01:35 Intake & Output 05/08/23 05/09/23 05/09/23 18:59 06:59 18:59 Intake Total 560 478 Output Total 450 200 Balance 110 -200 478 Weight 95.1 kg 95.1 kg Intake: IV 200 Oral 360 478 Output: Urine 450 200 Other: Voiding Method Urinal Urinal Urinal - Labs CBC & Chem 7: 05/09/23 06:57 05/09/23 06:57 Labs: Abnormal Lab Results - Last 24 Hours (Table) 05/08/23 05/08/23 05/08/23 Range/Units 17:00 19:53 21:02 WBC 16.9 H (3.8-10.6) k/uL RBC 4.06 L (4.30-5.90) m/uL Hct 38.2 L (39.0-53.0) % Plt Count (150-450) k/uL Neutrophils # (1.3-7.7) k/uL BUN (9-20) mg/dL Glucose (74-99) mg/dL POC Glucose (mg/dL) 171 H 176 H (70-110) mg/dL Calcium (8.4-10.2) mg/dL 05/09/23 05/09/23 05/09/23 Range/Units 06:36 06:57 06:57 WBC 11.2 H (3.8-10.6) k/uL RBC 4.25 L (4.30-5.90) m/uL Hct (39.0-53.0) % Plt Count 136 L (150-450) k/uL Neutrophils # 8.6 H (1.3-7.7) k/uL BUN 28 H (9-20) mg/dL Glucose 119 H (74-99) mg/dL POC Glucose (mg/dL) 144 H (70-110) mg/dL Calcium 8.2 L (8.4-10.2) mg/dL 05/09/23 Range/Units 11:49 WBC (3.8-10.6) k/uL RBC (4.30-5.90) m/uL Hct (39.0-53.0) % Plt Count (150-450) k/uL Neutrophils # (1.3-7.7) k/uL BUN (9-20) mg/dL Glucose (74-99) mg/dL POC Glucose (mg/dL) 131 H (70-110) mg/dL Calcium (8.4-10.2) mg/dL
--- NOTE | 2023-05-09 17:06 | CT ---
EXAMINATION TYPE: CT chest wo con CT DLP: 546.2 mGycm, Automated exposure control for dose reduction was used. DATE OF EXAM: 05/09/2023 4:55 PM COMPARISON: CTA chest 03/29/2021, chest radiograph 05/06/2023 CLINICAL INDICATION:Male, 83 years old with history of coughing up blood; [facility], TECHNIQUE: Multiple axial images were obtained through the chest without IV contrast. Lack of IV or o ral contrast limits evaluation of solid and hollow organ viscera. . Coronal and sagittal reformats re viewed. FINDINGS: LUNGS/ PLEURA: No pleural effusion or pneumothorax. Patchy reticular opacities throughout the lungs most probably within the bilateral lower lobes. AIRWAY: Patent and unremarkable.. HEART: Enlarged. No pericardial effusion. Aortic valvular calcifications. Coronary calcifications and /or stents. Post CABG changes. MEDIASTINUM: No gross evidence of adenopathy. VASCULATURE: No aortic aneurysm. Atherosclerotic calcification of the aorta and its branches. MUSCULOSKELETAL: Moderate disc degeneration changes are present throughout the thoracolumbar spine.. No acute osseous process. Median sternotomy wires. SOFT TISSUES/LYMPH NODES: Minimal bilateral gynecomastia. LOWER NECK: No significant findings. UPPER ABDOMEN: Diffuse low-attenuation to the liver parenchyma. Layering hyperdense material within t he gallbladder. IMPRESSION: 1. Patchy reticular opacities throughout the lungs concerning for pneumonia. 2. Cardiomegaly with post CABG changes. 3. Hepatic steatosis. 4. Cholelithiasis.
[2023-05-09 20:14] LABS: Glucose,Whole Blood 161 mg/dL (70-110)
[2023-05-09] MEDS: DONEPEZIL 5 MG TAB PO SCH (21:34)
[2023-05-10] MEDS: SODIUM CHLORIDE 0.9% 1,000 ML in EMPTY BAG 1 BAG IV SCH ×3 (03:31→20:39)
[2023-05-10 06:04] LABS: Glucose,Whole Blood 111 mg/dL (70-110)
[2023-05-10] MEDS: CLOPIDOGREL 75 MG TAB PO SCH (09:50)
[2023-05-10] MEDS: BUMETANIDE 1 MG TAB PO SCH (09:50)
[2023-05-10] MEDS: SENNOSIDES 8.6 MG TAB PO SCH ×2 (09:50→20:39)
[2023-05-10] MEDS: ASPIRIN 81 MG PO SCH (09:50)
[2023-05-10] MEDS: EZETIMIBE 10 MG TAB PO SCH (09:50)
[2023-05-10] MEDS: ATORVASTATIN 40 MG TAB PO SCH (09:50)
[2023-05-10] MEDS: lisinopriL 5 MG TAB PO SCH (09:50)
[2023-05-10] MEDS: METOPROLOL TARTRATE 25 MG TAB PO SCH ×2 (09:50→20:41)
[2023-05-10] MEDS: INSULIN ASPART (NovoLOG) 100 UNIT/ML VIAL SQ SCH ×4 (09:50→20:39)
[2023-05-10] MEDS: ISOSORBIDE MONONITRATE ER 30 MG TAB.ER.24H PO SCH (09:59)
[2023-05-10 10:21] LABS: Basophils % (A) 0 %; Eosinophils # (A) 0.1 k/uL (0-0.7); Eosinophils % (A) 2 %; HGB 14.7 gm/dL (13.0-17.5); Lymphocytes # (A) 1.5 k/uL (1.0-4.8); Lymphocytes % (A) 18 %; MCH 31.7 pg (25.0-35.0); MCHC 33.4 g/dL (31.0-37.0); MCV 95.1 fL (80.0-100.0); Mean Platelet Volume 10.2; Monocytes # (A) 0.7 k/uL (0-1.0); Monocytes % (A) 8 %; Neutrophils % (A) 71 %; Platelet Count 167 k/uL (150-450); RBC 4.63 m/uL (4.30-5.90); RDW 13.9 % (11.5-15.5); WBC 8.4 k/uL (3.8-10.6)
[2023-05-10] MEDS: SYMBICORT 160-4.5 MCG INHALER INHALATION SCH ×2 (10:27→21:07)
[2023-05-10] MEDS: IPRATROPIUM-ALBUTEROL 3 ML NEB INHALATION SCH ×4 (10:27→21:08)
[2023-05-10 10:38] LABS: African American GFR (CKD) 73 (>60 ml/min/1.73 sqM); Anion Gap 8 mmol/L; Blood Urea Nitrogen 26 mg/dL (9-20); Calcium 8.6 mg/dL (8.4-10.2); Carbon Dioxide 32 mmol/L (22-30); Chloride 94 mmol/L (98-107); Glucose 166 mg/dL (74-99); Magnesium 2.4 mg/dL (1.6-2.3); Non-African American GFR(CKD) 63 (>60 ml/min/1.73 sqM); Potassium 3.8 mmol/L (3.5-5.1); Sodium 134 mmol/L (137-145)
[2023-05-10 11:25] LABS: Glucose,Whole Blood 129 mg/dL (70-110)
--- NOTE | 2023-05-10 12:53 | P.PN ---
Subjective HISTORY OF PRESENT ILLNESS: This is an 83-year-old male who underwent cardiac catheterization yesterday with Dr. Mckeon. Patient had 2 stents placed to the SVG to OM. Patient remains on aspirin and Plavix. Patient does report having a cough this afternoon with hemoptysis. He denies any chest pain or pressure. He denies any shortness of breath. Hemoglobin is stable at 13.6. Echocardiogram reveals ejection fraction 50-55% with moderate to severe aortic stenosis. 05/10/2023 Patient examined this morning at the bedside. Patient denies chest pain or pressure. He denies shortness of breath. He reports improvement in his hemoptysis. He underwent CT of the chest yesterday revealing patchy reticular opacities throughout the lungs concerning for pneumonia, cardiomegaly with post CABG changes, cholelithiasis, and hepatic steatosis PHYSICAL EXAM: VITAL SIGNS: Reviewed. GENERAL: Well-developed in no acute distress. NECK: Supple. No JVD or thyromegaly LUNGS: Respirations even and unlabored. Lungs diminished HEART: Regular rate and rhythm. S1 and S2 heard. Systolic murmur noted. EXTREMITIES: Normal range of motion. No clubbing or cyanosis. Peripheral pulses intact. No lower extremity edema ASSESSMENT: NSTEMI, status post cardiac cath with stent placement 2 to SVG to OM Hemoptysis Leslee pneumonia per CT chest Acute on chronic heart failure with preserved LV systolic function COPD Hypertension Hyperlipidemia Obstructive sleep apnea PLAN: Continue dual antiplatelet therapy with aspirin and Plavix Continue atorvastatin 40 mg daily Discontinue Bumex. Begin Demadex 10mg daily Daily weights, accurate I&O, and monitoring of kidney function Stable for discharge from a cardiac standpoint Dr. Laird's Addendum Patient is doing well status post PCI. His left femoral arterial access site in left radial arterial exercise appears intact with no signs of hematoma or bleeding. He is not much fluid overloaded and I will transition his diuretics with Demadex 10 mg daily. Continue his other guideline directed therapy Discussed the case with pulmonary team who will evaluate his CT, and see if he would benefit from treatment for pneumonia. Okay to discharge from cardiac standpoint otherwise I have spoken to the patient's and updated about this plan I have personally seen and examined the patient. I have personally performed all the components of medical care documented above including detailed histoy, review of system, physican exam, and formulating the assessment and plan. I have personally reviewed the relevant labs, imaging and other diagnostics. I have discussed this in detail with my C [employer] DEVELOPER who has helped me with this documentation. I have carefully reviewed this document before finalizing. Thank you for letting cardiology team participating in this patient's care. Dr. Niall Laird MD Cardiovascular Disease Nurse practitioner note has been reviewed by physician. Signing provider agrees with the documented findings, assessment, and plan of care. Objective - Vital Signs Vital signs: Vital Signs Temp 98.5 F 05/10/23 09:50 Pulse 76 05/10/23 12:11 Resp 18 05/10/23 09:50 BP 116/69 05/10/23 09:50 Pulse Ox 93 L 05/10/23 09:50 FiO2 21 05/09/23 01:35 Intake & Output 05/09/23 05/10/23 05/10/23 18:59 06:59 18:59 Intake Total 596 360 Balance 596 360 Weight 95.1 kg Intake: Oral 596 360 Other: Voiding Method Urinal Urinal Urinal # Voids 1 - Labs CBC & Chem 7: 05/10/23 09:31 05/10/23 09:31 Labs: Abnormal Lab Results - Last 24 Hours (Table) 05/09/23 05/10/23 05/10/23 Range/Units 20:13 06:02 09:31 Sodium 134 L (137-145) mmol/L Chloride 94 L (98-107) mmol/L Carbon Dioxide 32 H (22-30) mmol/L BUN 26 H (9-20) mg/dL Glucose 166 H (74-99) mg/dL POC Glucose (mg/dL) 161 H 111 H (70-110) mg/dL Magnesium 2.4 H (1.6-2.3) mg/dL 05/10/23 Range/Units 11:24 Sodium (137-145) mmol/L Chloride (98-107) mmol/L Carbon Dioxide (22-30) mmol/L BUN (9-20) mg/dL Glucose (74-99) mg/dL POC Glucose (mg/dL) 129 H (70-110) mg/dL Magnesium (1.6-2.3) mg/dL
[2023-05-10] MEDS: ONDANSETRON 4 MG/2 ML VIAL IVP PRN ×2 (12:58→20:11)
--- NOTE | 2023-05-10 13:24 | XR ---
EXAMINATION TYPE: XR abdomen acute w cxr DATE OF EXAM: 05/10/2023 1:16 PM INDICATION: Patient age:Male; 83 years old; Reason for study: abdominal distention, pain; COMPARISON: None. TECHNIQUE: Two radiographic views of the abdomen (upright and supine) and a frontal chest radiograph were obtained. FINDINGS CHEST: Lungs/Pleura: The lungs are clear. There is no evidence of pleural effusion, focal consolidation or p neumothorax. Mediastinum: Unremarkable. Vasculature: Pulmonary vascular congestion. Heart: Heart is mildly enlarged for size. Musculoskeletal: The osseous structures are intact. Sternotomy wires appear intact. Multilevel disc d egeneration changes throughout the spine. Other findings: No significant. FINDINGS ABDOMEN: Bowel gas pattern: Normal without dilated loops of small or large bowel. Fecal material and gas are d emonstrated throughout the colon and rectum. Abnormal calcifications: None. Musculoskeletal: Left hip arthroplasty changes appear intact. Other: None. IMPRESSION: 1. No radiographic evidence for acute abdominal process. 2. No acute cardiopulmonary process 3. Pulmonary vascular congestion with mild cardiomegaly correlate for congestive heart failure with s wei BNP.
--- NOTE | 2023-05-10 14:09 | P.PN ---
Subjective Progress Note Date: 05/10/23 I am seeing this patient in new consultation today 05/07/2023 in the emergency room for suspected exacerbation of diastolic congestive heart failure and COPD. This is a pleasant 82-year-old male patient with a history of oxygen and prednisone dependent COPD, coronary artery disease status post CABG and s ubsequent PCI, congestive heart failure, hyperlipidemia, generalized anxiety disorder, obesity, obstructive sleep apnea on CPAP. He does follow with Dr. Ortega in the office for management of his COPD. Patient presented to the emergency room yesterday evening complaining of shortness of breath that started approximately 48 hours ago, associated with a nonproductive cough. Denies any fevers, chills, myalgias, hemoptysis. Denies sick contacts or travel history. Denies chest pain, heart palpitations, lower extremity swelling. Admits orthopnea. Patient was hospitalized 2 months ago with similar symptoms. He is currently sitting up in bed, on 3 L/m nasal cannula, in no acute distress. Shruthi st x-ray on arrival showed cardiomegaly, with pulmonary vascular congestions, and bilateral pleural effusions consistent with CHF exacerbation. NT proBNP was only mildly elevated, however, at 267. Troponins were elevated at 0.867. ECG shows normal sinus rhythm with a right bundle branch block and nonspecific T- wave inversion. CBC on arrival was unremarkable without any leukocytosis. BMP on arrival was also unremarkable. Normal saline is currently infusing at 130 ML's per hour. Afebrile. Patient is hemodynamically stable. On today's evaluation of a 05/08 2023, the patient seems to be more comfortable on 2 L of Oxymizer nasal cannula. The patient remains on Lasix 20 mg IV every 12 hours. The patient underwent a cardiac catheterization yesterday and the results were noted. In summary, the patient was found to have severe coronary artery disease of the grindstone coronary arteries. There was moderate nonobstructive disease involving the grindstone vessels distal to the anastomosis. The venous graft to OM and PDA was patent, HERNANDEZ was patent to LAD, there was elevated left anterior diastolic pressure and the patient was found to have moderate degree of aortic stenosis with a peak gradient of 30. 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 Echocardiogram was done and it showed a preserved LV function with an EF of around 50-55%. The patient had moderate to severe aortic stenosis. He has no other complaints otherwise. History of any chest pain. His troponin peaked at 1.09. HbA1c is at 7.3. On today's evaluation of a 05/09 2023, the patient is feeling better. No chest pain.the patient is post cardiac catheterization and stenting of the SVG to OM. He is currently on aspirin and Plavix. He is also on metoprolol. History of any chest pain. He is also known to have moderate degree of aortic stenosis. He is currently on room air oxygen. He does have some coarse crackles in lung bases bilaterally. Suspect some background pulmonary fibrosis in lung bases. Labs from today was noted. BUN is at 28 with a creatinine of 0.9. The physical 11.2 with a hemoglobin of 13.6. Platelet count is at 136. Admitting count is some limited hemoptysis earlier/bloody mucus which is expected as the patient is currently on aspirin and Plavix and he does have moderate to severe degree of aortic stenosis. He is previous CAT scan of the chest was noted and there is no evidence of any lung masses. There may be some background bibasilar pulmonary fibrosis. 05/10/2023, the patient is being seen for a follow-up. The patient is having some minimal bloody sputum. He is on aspirin and Plavix. He is also noted aortic stenosis. A CAT scan of the chest was done and I reviewed the CAT scan of the chest and I'm concerned of chronic into 30s lung bases probably component of fibrosis. No lung masses. Noted the amount of blood is minimal in his sp utum. No hematemesis. No epistaxis. No chest pain is post cardiac catheterization and stenting of the SVG to OM. The blood work shows a white cell count of 8.4, he was 14.7, BUN is 26 with a creatinine of 1.09 and a sodium level is at 134. ProBNP level is 281. The patient is free of any chest pain. Objective - Vital Signs Vital signs: Vital Signs Temp 98.5 F 05/10/23 09:50 Pulse 77 05/10/23 09:50 Resp 18 05/10/23 09:50 BP 116/69 05/10/23 09:50 Pulse Ox 93 L 08/25/23 09:50 FiO2 21 05/09/23 01:35 Intake & Output 05/09/23 05/10/23 05/10/23 18:59 06:59 18:59 Intake Total 596 360 Balance 596 360 Weight 95.1 kg Intake: Oral 596 360 Other: Voiding Method Urinal Urinal # Voids 1 - Exam GENERAL EXAM: Alert, 83-year-old white male, comfortable in no apparent distress. The patient has been weaned down to room air oxygen HEAD: Normocephalic and atraumatic EYES: Normal reaction of pupils, equal size. NOSE: Clear with pink turbinates. THROAT: No erythema or exudates. NECK: No masses, no JVD. CHEST: No chest wall deformity. LUNGS: Equal air entry with bibasilar inspiratory crackles and minimal expiratory wheezes throughout. No conversational dyspnea or accessory muscle use.. CVS: S1 and S2 normal with no audible murmur, regular rhythm. No extra heart sounds ABDOMEN: No hepatosplenomegaly, active bowel sounds, no guarding or rigidity. SPINE: No scoliosis or deformity SKIN: No rashes CENTRAL NERVOUS SYSTEM: No focal deficits, tone is normal in all 4 extremities. EXTREMITIES: There is no peripheral edema, clubbing, or cyanosis. Peripheral pulses are intact. - Labs CBC & Chem 7: 05/10/23 09:31 05/10/23 09:31 Labs: Abnormal Lab Results - Last 24 Hours (Table) 05/09/23 05/09/23 05/10/23 Range/Units 11:49 20:13 06:02 Sodium (137-145) mmol/L Chloride (98-107) mmol/L Carbon Dioxide (22-30) mmol/L BUN (9-20) mg/dL Glucose (74-99) mg/dL POC Glucose (mg/dL) 131 H 161 H 111 H (70-110) mg/dL Magnesium (1.6-2.3) mg/dL 05/10/23 Range/Units 09:31 Sodium 134 L (137-145) mmol/L Chloride 94 L (98-107) mmol/L Carbon Dioxide 32 H (22-30) mmol/L BUN 26 H (9-20) mg/dL Glucose 166 H (74-99) mg/dL POC Glucose (mg/dL) (70-110) mg/dL Magnesium 2.4 H (1.6-2.3) mg/dL Assessment and Plan Assessment: Acute on chronic hypoxemic respiratory failure, currently on 3 L/m nasal cannula, multifactorial secondary to exacerbation of diastolic congestive heart failure and mild COPD exacerbation. Chest x-ray on arrival showed cardiomegaly, with pulmonary vascular congestions, and bilateral pleural effusions consistent with CHF exacerbation. NT proBNP was only mildly elevated, however, at 267. Most recent echocardiogram from 06/16/2022 shows a preserved left ventricular ejection fraction of 50-55%, with moderately increased LVH, and moderate aortic stenosis. The patient was diabetes and he responded to diuretics and the patient is currently on room air oxygen Acute non-ST segment elevation myocardial infarction, cardiac catheterization was done and the patient underwent further intervention with stenting of the SVG to obtuse marginal Moderate degree of aortic stenosis, please refer to the echocardiogram in the cardiac catheterization report Moderate chronic obstructive pulmonary disease, baseline FEV1 72% of predicted. Patient is oxygen dependent and the patient has been utilizing a bit on about treatments 4 times a day [id number] and recently hospitalized for an acute COPD exacerbation Coronary artery disease, with previous CABG and subsequent PCI, followed up by Dr. Vuong from cardiology Hyperlipidemia Obesity, with a BMI of 33.5 kg/m Obstructive sleep apnea, with home CPAP Generalized anxiety disorder Remote ex-smoker Plan: No specific hemoptysis, likely due to combination of the platelet agents and aortic stenosis. His chest x-ray was also showing a component of CHF CAT scan of the chest was reviewed and shows chronic interstitial change in lung bases, no clear indication for pneumonia. Suspected an underlying bibasilar pulmonary fibrosis as the patient continues to have coarse crackles in lung bases bilaterally. Clinically stable and the patient denies having any shortness of breath or chest pain. Review of the previous CAT scan of the chest and there may be a suspicion for bibasilar pulmonary fibrosis. Similar findings are seen on the follow-up CAT scan of the chest that was obtained yesterday. No evidence of the lung masses or tumors. Patient is currently on room air oxygen Diuretics to be continued and the patient is currently on Demadex 10 mg by mouth daily Continue aspirin and Plavix Continue metoprolol at a dose of 25 mg twice a day Continue Zestril 5 mg by mouth daily Oxygenation is improved We'll continue to follow him make further recommendations based on his progress. Video Intern on the case.
[2023-05-10] MEDS: LACTULOSE 20 GM/30 ML CUP PO SCH ×2 (14:11→20:39)
[2023-05-10] MEDS ORDERED: bisacodyL 10 MG SUPP RECTAL PRN (14:30)
[2023-05-10] MEDS ORDERED: LACTULOSE 20 GM/30 ML CUP PO SCH (16:00)
[2023-05-10 16:38] LABS: Glucose,Whole Blood 131 mg/dL (70-110)
[2023-05-10 20:26] LABS: Glucose,Whole Blood 138 mg/dL (70-110)
[2023-05-10] MEDS: DONEPEZIL 5 MG TAB PO SCH (20:42)
--- NOTE | 2023-05-10 21:16 | P.PN ---
Subjective Progress Note Date: 05/10/23 A 83-year-old the male came in with compensative chest pain denied any fever chills patient is found have elevated troponins first one is alert to around 0.8 going up to around 1.3. Chest x-ray showed bilateral pleural effusions patient had a previous echocardiogram which showed normal ejection fraction and the EKG showed some nonspecific T-wave inversions. Patient's BNP is essentially within normal limits. 05/08/2023 Patient is seen and evaluated this morning currently sitting up in the chair is status post diagnostic cardiac catheterization and scheduled to undergo cardiac catheterization with stenting today. Family at bedside and upset as patient consented himself for the initial cardiac catheterization and daughter at bedside reports he has dementia and very forgetful and feels does not understand what surgical procedures he is going through. Family is demanding to speak with cardiology. 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 Patient is afebrile denies chest pain or shortness of breath. Patient also being monitored by pulmonary for COPD exacerbation. Patient is continued on 3 L via nasal cannula. Patient is reporting some nausea with upset stomach and feels is because he has not had a bowel movement since before admission. We'll add some stool softeners along with nausea medication as needed. 05/09/2023 Patient is seen and evaluated in follow-up this morning is status post cardiac catheterization yesterday with 2 stents placed in patient remains on aspirin and Plavix. Patient was having some cough this afternoon and developed some blood clots and hemoptysis. Hemoglobin is stable above 13. CT chest is ordered and pending at this time. Pulmonary is following as well with concerns of COPD exacerbation. Patient on exam is sitting up in the chair on room air denies worsening shortness of breath. Patient is tolerating diet with no reports of nausea or vomiting. Patient denied any further abdominal pain or constipation on exam. Patient will continue on stool softeners as needed. Patient is afebrile with no reported chest pain or palpitations. Will have PT/OT therapy evaluate the patient. Follow-up labs in the a.m. Monitor hemoglobin closely and monitor for any further signs of bleeding. 05/10/2023 Patient is seen in follow-up today currently remains on room air and does report some cough with minimal hemoptysis and does have some shortness of breath with exertion. Patient has been seen and evaluated by cardiology along with pulmonary and being followed for acute COPD exacerbation. Patient did have CT chest yesterday which showed that she reticular opacification throughout the lungs concerning for pneumonia, cardiomegaly with post-CABG changes, hepatic s teatosis and cholelithiasis. Pulmonary fibrosis is of concern. Patient continues to have coarse rhonchi noted bilaterally and reports he is occasionally coughing and is continued on breathing treatments. Patient is reporting continued nausea and loss of appetite with abdominal pain and distention feelings of constipation. Patient was started on Senokot twice daily and was offered suppository although patient refused. Will obtain abdominal x- ray and start lactulose. Encouraged to increase activity as tolerated. Patient is afebrile with no reports of worsening shortness of breath. Review of systems: Constitutional: No reports of fatigue, fever, or chills Cardiovascular: No reports of chest pain or palpitations Respiratory: No reports of worsening shortness of breath , reports cough with occasional blood noted GI: No reports of nausea, no vomiting, reports feeling constipated and not passing much gas : No reports of dysuria or retention Neurovascular: No reports of weakness or numbness PHYSICAL EXAMINATION: GENERAL: The patient is alert and oriented x2-3, not in any acute distress. Well developed, well nourished. Obese. HEENT: Pupils are round and equally reacting to light. EOMI. No scleral icterus. No conjunctival pallor. Normocephalic, atraumatic. No pharyngeal erythema. No thyromegaly. CARDIOVASCULAR: S1 and S2 present. No murmurs, rubs, or gallops. PULMONARY: Breath sounds slightly diminished bilateral with some scattered coarse rhonchi noted. ABDOMEN: Soft, obese, nontender, nondistended, normoactive bowel sounds. No palpable organomegaly. MUSCULOSKELETAL: No joint swelling or deformity. EXTREMITIES: No cyanosis, clubbing, or pedal edema. NEUROLOGICAL: Gross neurological examination did not reveal any focal deficits. SKIN: No rashes. Assessment: -Acute non-ST elevation myocardial infarction: Status post cardiac catheterization with stenting 2 to SVG to OM. Patient is continued on statin and aspirin along with Plavix -Acute on chronic congestive heart failure with preserved EF -On chronic hypoxic respiratory failure, multifactorial, secondary to CHF as well as COPD exacerbation -Hemoptysis, minimal -COPD, acute exacerbation -Dementia history per daughter -Hyperlipidemia -Sleep apnea uses CPAP machine at home -Obesity with BMI of 31.9 -DVT prophylaxis -Full code Plan: Patient underwent cardiac catheterization with stenting 2 . 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 CT chest as mentioned above Patient has been transitioned to Bumex. Kidney function stable. Will follow up on repeat labs Continue current medications PT/OT therapy evaluation, patient will be going home with family Patient continues to report nausea and difficulty with eating as he reports constipation that has not improved. Family reports he has been having ongoing issues with this and has mesenteric issues and follows outpatient and is requesting CT abdomen. Abdominal x-ray was obtained showing stool and gas within the colon and normal gas pattern. Patient was started on Senokot as well as given a when necessary suppository and patient initially refused. Patient will be started on lactulose and if is having bowel movements and feeling better patient will be going home. Per nursing staff patient has not had a bowel movement and does not feel ready to go home and will continue current bowel regimen Probable discharge in the next 24 hours The impression and plan of care has been dictated by Nisreen Esparza, Nurse Practitioner as directed. Dr. Pia MD I have performed a history and examination and MDM of this patient, discussed the same with the dictator, and agree with the dictator's assessment and plan as written ,documented as a scribe. Based on total visit time, I have performed more than 50% of the visit. Objective - Vital Signs Vital signs: Vital Signs Temp 98.5 F 05/10/23 09:50 Pulse 77 05/10/23 09:50 Resp 18 05/10/23 09:50 BP 116/69 05/10/23 09:50 Pulse Ox 93 L 05/10/23 09:50 FiO2 21 05/09/23 01:35 Intake & Output 05/09/23 05/10/23 05/10/23 18:59 06:59 18:59 Intake Total 596 360 Balance 596 360 Weight 95.1 kg Intake: Oral 596 360 Other: Voiding Method Urinal Urinal # Voids 1 - Labs CBC & Chem 7: 05/10/23 09:31 05/10/23 09:31 Labs: Abnormal Lab Results - Last 24 Hours (Table) 05/09/23 05/09/23 05/09/23 Range/Units 06:57 11:49 20:13 BUN 28 H (9-20) mg/dL Glucose 119 H (74-99) mg/dL POC Glucose (mg/dL) 131 H 161 H (70-110) mg/dL Calcium 8.2 L (8.4-10.2) mg/dL 05/10/23 Range/Units 06:02 BUN (9-20) mg/dL Glucose (74-99) mg/dL POC Glucose (mg/dL) 111 H (70-110) mg/dL Calcium (8.4-10.2) mg/dL
[2023-05-10] MEDS: HEPARIN SOD,PORK IN 0.45% NACL 25,000 UNIT in 0.45% NACL 1 250ML.BAG IV SCH (21:54)
[2023-05-11 06:24] LABS: Glucose,Whole Blood 117 mg/dL (70-110)
[2023-05-11] MEDS: INSULIN ASPART (NovoLOG) 100 UNIT/ML VIAL SQ SCH ×4 (06:25→20:33)
[2023-05-11] MEDS: ONDANSETRON 4 MG/2 ML VIAL IVP PRN ×2 (06:41→20:37)
[2023-05-11] MEDS: SYMBICORT 160-4.5 MCG INHALER INHALATION SCH ×2 (09:17→21:16)
[2023-05-11] MEDS: IPRATROPIUM-ALBUTEROL 3 ML NEB INHALATION SCH ×4 (09:17→21:16)
[2023-05-11] MEDS: LACTULOSE 20 GM/30 ML CUP PO SCH ×3 (09:34→20:36)
[2023-05-11] MEDS: METOPROLOL TARTRATE 25 MG TAB PO SCH ×2 (09:35→20:36)
[2023-05-11] MEDS: SENNOSIDES 8.6 MG TAB PO SCH ×2 (09:35→20:36)
[2023-05-11] MEDS: CLOPIDOGREL 75 MG TAB PO SCH (09:35)
[2023-05-11] MEDS: lisinopriL 5 MG TAB PO SCH (09:35)
[2023-05-11] MEDS: EZETIMIBE 10 MG TAB PO SCH (09:35)
[2023-05-11] MEDS: ASPIRIN 81 MG PO SCH (09:35)
[2023-05-11] MEDS: ISOSORBIDE MONONITRATE ER 30 MG TAB.ER.24H PO SCH (09:35)
[2023-05-11] MEDS: ATORVASTATIN 40 MG TAB PO SCH (09:35)
[2023-05-11] MEDS: TORSEMIDE 20 MG TAB PO SCH (09:42)
[2023-05-11 09:55] LABS: African American GFR (CKD) 83 (>60 ml/min/1.73 sqM); Anion Gap 11 mmol/L; Blood Urea Nitrogen 26 mg/dL (9-20); Calcium 8.7 mg/dL (8.4-10.2); Carbon Dioxide 25 mmol/L (22-30); Chloride 95 mmol/L (98-107); Glucose 209 mg/dL (74-99); Non-African American GFR(CKD) 72 (>60 ml/min/1.73 sqM); Potassium 4.1 mmol/L (3.5-5.1); Sodium 131 mmol/L (137-145)
[2023-05-11 11:30] LABS: Glucose,Whole Blood 149 mg/dL (70-110)
--- NOTE | 2023-05-11 14:03 | P.PN ---
Subjective Progress Note Date: 05/11/23 I am seeing this patient in new consultation today 05/07/2023 in the emergency room for suspected exacerbation of diastolic congestive heart failure and COPD. This is a pleasant 82-year-old male patient with a history of oxygen and prednisone dependent COPD, coronary artery disease status post CABG and s ubsequent PCI, congestive heart failure, hyperlipidemia, generalized anxiety disorder, obesity, obstructive sleep apnea on CPAP. He does follow with Dr. Ortega in the office for management of his COPD. Patient presented to the emergency room yesterday evening complaining of shortness of breath that started approximately 48 hours ago, associated with a nonproductive cough. Denies any fevers, chills, myalgias, hemoptysis. Denies sick contacts or travel history. Denies chest pain, heart palpitations, lower extremity swelling. Admits orthopnea. Patient was hospitalized 2 months ago with similar symptoms. He is currently sitting up in bed, on 3 L/m nasal cannula, in no acute distress. Shruthi st x-ray on arrival showed cardiomegaly, with pulmonary vascular congestions, and bilateral pleural effusions consistent with CHF exacerbation. NT proBNP was only mildly elevated, however, at 267. Troponins were elevated at 0.867. ECG shows normal sinus rhythm with a right bundle branch block and nonspecific T- wave inversion. CBC on arrival was unremarkable without any leukocytosis. BMP on arrival was also unremarkable. Normal saline is currently infusing at 130 ML's per hour. Afebrile. Patient is hemodynamically stable. On today's evaluation of a 05/08 2023, the patient seems to be more comfortable on 2 L of Oxymizer nasal cannula. The patient remains on Lasix 20 mg IV every 12 hours. The patient underwent a cardiac catheterization yesterday and the results were noted. In summary, the patient was found to have severe coronary artery disease of the wrangell coronary arteries. There was moderate nonobstructive disease involving the wrangell vessels distal to the anastomosis. The venous graft to OM and PDA was patent, HERNANDEZ was patent to LAD, there was elevated left anterior diastolic pressure and the patient was found to have moderate degree of aortic stenosis with a peak gradient of 30. Subsequently the patient was taken back to the cath lab radiology technician and the patient has successful stenting of the SVG to OM with a reduction of the stenosis from 90% down to 5%. Echocardiogram was done and it showed a preserved LV function with an EF of around 50-55%. The patient had moderate to severe aortic stenosis. He has no other complaints otherwise. History of any chest pain. His troponin peaked at 1.09. HbA1c is at 7.3. On today's evaluation of a 05/09 2023, the patient is feeling better. No chest pain.the patient is post cardiac catheterization and stenting of the SVG to OM. He is currently on aspirin and Plavix. He is also on metoprolol. History of any chest pain. He is also known to have moderate degree of aortic stenosis. He is currently on room air oxygen. He does have some coarse crackles in lung bases bilaterally. Suspect some background pulmonary fibrosis in lung bases. Labs from today was noted. BUN is at 28 with a creatinine of 0.9. The physical 11.2 with a hemoglobin of 13.6. Platelet count is at 136. Admitting count is some limited hemoptysis earlier/bloody mucus which is expected as the patient is currently on aspirin and Plavix and he does have moderate to severe degree of aortic stenosis. He is previous CAT scan of the chest was noted and there is no evidence of any lung masses. There may be some background bibasilar pulmonary fibrosis. 05/10/2023, the patient is being seen for a follow-up. The patient is having some minimal bloody sputum. He is on aspirin and Plavix. He is also noted aortic stenosis. A CAT scan of the chest was done and I reviewed the CAT scan of the chest and I'm concerned of chronic into 30s lung bases probably component of fibrosis. No lung masses. Noted the amount of blood is minimal in his sp utum. No hematemesis. No epistaxis. No chest pain is post cardiac catheterization and stenting of the SVG to OM. The blood work shows a white cell count of 8.4, he was 14.7, BUN is 26 with a creatinine of 1.09 and a sodium level is at 134. ProBNP level is 281. The patient is free of any chest pain. 05/11/2023, the patient is having abdominal discomfort. He is feeling nauseated and he feels that he is going to follow-up. No direct tenderness in his abdominal examination. No fever or chills. He remains on room air oxygen. Noted the patient on IV Rocephin. His condition antibiotic effect. Note that he has been noted. BUN is 26 with a creatinine of 0.9. Serum bicarbs of 25 and a sodium level of 131. No hemoptysis for now. He remains on room air oxygen. Objective - Vital Signs Vital signs: Vital Signs Temp 98.0 F 05/11/23 11:37 Pulse 78 05/11/23 12:39 Resp 16 05/11/23 11:37 BP 113/62 05/11/23 11:37 Pulse Ox 92 L 05/11/23 11:37 FiO2 21 05/09/23 01:35 Intake & Output 05/10/23 05/11/23 05/11/23 18:59 06:59 18:59 Intake Total 710 Balance 710 Intake: Oral 710 Other: Voiding Method Urinal Urinal # Voids 4 # Bowel Movements 2 - Labs CBC & Chem 7: 05/10/23 09:31 05/11/23 08:29 Labs: Abnormal Lab Results - Last 24 Hours (Table) 05/10/23 05/10/23 05/11/23 Range/Units 16:36 20:25 06:23 Sodium (137-145) mmol/L Chloride (98-107) mmol/L BUN (9-20) mg/dL Glucose (74-99) mg/dL POC Glucose (mg/dL) 131 H 138 H 117 H (70-110) mg/dL 05/11/23 05/11/23 Range/Units 08:29 11:27 Sodium 131 L (137-145) mmol/L Chloride 95 L (98-107) mmol/L BUN 26 H (9-20) mg/dL Glucose 209 H (74-99) mg/dL POC Glucose (mg/dL) 149 H (70-110) mg/dL Assessment and Plan Assessment: Acute on chronic hypoxemic respiratory failure, currently on 3 L/m nasal ca nnula, multifactorial secondary to exacerbation of diastolic congestive heart failure and mild COPD exacerbation. Chest x-ray on arrival showed cardiomegaly, with pulmonary vascular congestions, and bilateral pleural effusions consistent with CHF exacerbation. NT proBNP was only mildly elevated, however, at 267. Most recent echocardiogram from 06/16/2022 shows a preserved left ventricular ejection fraction of 50-55%, with moderately increased LVH, and moderate aortic stenosis. The patient was diabetes and he responded to diuretics and the patient is currently on room air oxygen Acute non-ST segment elevation myocardial infarction, cardiac catheterization was done and the patient underwent further intervention with stenting of the SVG to obtuse marginal Moderate degree of aortic stenosis, please refer to the echocardiogram in the cardiac catheterization report Moderate chronic obstructive pulmonary disease, baseline FEV1 72% of predicted. Patient is oxygen dependent and the patient has been utilizing a bit on about treatments 4 times a day [id number] and recently hospitalized for an acute COPD exacerbation Coronary artery disease, with previous CABG and subsequent PCI, followed up by Dr. Vuong from cardiology Hyperlipidemia Obesity, with a BMI of 33.5 kg/m Obstructive sleep apnea, with home CPAP Generalized anxiety disorder Remote ex-smoker Nausea along with abdominal discomfort, rule out ileus, rule out antibiotic induced GI upset Plan: Suggest discontinuing the IV Rocephin Obtain a flat some of the abdomen Use Zofran for nausea No specific hemoptysis, likely due to combination of the platelet agents and aortic stenosis. His chest x-ray was also showing a component of CHF CAT scan of the chest was reviewed and shows chronic interstitial change in lung bases, no clear indication for pneumonia. Suspected an underlying bibasilar pulmonary fibrosis as the patient continues to have coarse crackles in lung bases bilaterally. Clinically stable and the patient denies having any shortness of breath or chest pain. Review of the previous CAT scan of the chest and there may be a suspicion for bibasilar pulmonary fibrosis. Similar findings are seen on the follow-up CAT scan of the chest that was obtained yesterday. No evidence of the lung masses or tumors. Patient is currently on room air oxygen Diuretics to be continued and the patient is currently on Demadex 10 mg by mouth daily Continue aspirin and Plavix Continue metoprolol at a dose of 25 mg twice a day Continue Zestril 5 mg by mouth daily Oxygenation is improved We'll continue to follow him make further recommendations based on his progress. Field Adjuster on the case.
--- NOTE | 2023-05-11 16:25 | P.PN ---
Subjective Progress Note Date: 05/11/23 A 83-year-old the male came in with compensative chest pain denied any fever chills patient is found have elevated troponins first one is alert to around 0.8 going up to around 1.3. Chest x-ray showed bilateral pleural effusions patient had a previous echocardiogram which showed normal ejection fraction and the EKG showed some nonspecific T-wave inversions. Patient's BNP is essentially within normal limits. 05/08/2023 Patient is seen and evaluated this morning currently sitting up in the chair is status post diagnostic cardiac catheterization and scheduled to undergo cardiac catheterization with stenting today. Family at bedside and upset as patient consented himself for the initial cardiac catheterization and daughter at bedside reports he has dementia and very forgetful and feels does not understand what surgical procedures he is going through. Family is demanding to speak with cardiology. Family initially wanted transfer to [facility] where his structural steel engineer is and awaiting to talk to cardiology here. Patient is afebrile denies chest pain or shortness of breath. Patient also being monitored by pulmonary for COPD exacerbation. Patient is continued on 3 L via nasal cannula. Patient is reporting some nausea with upset stomach and feels is because he has not had a bowel movement since before admission. We'll add some stool softeners along with nausea medication as needed. 05/09/2023 Patient is seen and evaluated in follow-up this morning is status post cardiac catheterization yesterday with 2 stents placed in patient remains on aspirin and Plavix. Patient was having some cough this afternoon and developed some blood clots and hemoptysis. Hemoglobin is stable above 13. CT chest is ordered and pending at this time. Pulmonary is following as well with concerns of COPD exacerbation. Patient on exam is sitting up in the chair on room air denies worsening shortness of breath. Patient is tolerating diet with no reports of nausea or vomiting. Patient denied any further abdominal pain or constipation on exam. Patient will continue on stool softeners as needed. Patient is afebrile with no reported chest pain or palpitations. Will have PT/OT therapy evaluate the patient. Follow-up labs in the a.m. Monitor hemoglobin closely and monitor for any further signs of bleeding. 05/10/2023 Patient is seen in follow-up today currently remains on room air and does report some cough with minimal hemoptysis and does have some shortness of breath with exertion. Patient has been seen and evaluated by cardiology along with pulmonary and being followed for acute COPD exacerbation. Patient did have CT chest yesterday which showed that she reticular opacification throughout the lungs concerning for pneumonia, cardiomegaly with post-CABG changes, hepatic s teatosis and cholelithiasis. Pulmonary fibrosis is of concern. Patient continues to have coarse rhonchi noted bilaterally and reports he is occasionally coughing and is continued on breathing treatments. Patient is reporting continued nausea and loss of appetite with abdominal pain and distention feelings of constipation. Patient was started on Senokot twice daily and was offered suppository although patient refused. Will obtain abdominal x- ray and start lactulose. Encouraged to increase activity as tolerated. Patient is afebrile with no reports of worsening shortness of breath. 05/11/2023 Patient is evaluated today resting in bed on the medical floor his family is at the bedside. Patient continues with abdominal discomfort and nausea although he has had 2 bowel movements. He does continue with abdominal distention. He continues on a bowel regimen with lactulose. Noted that the chest CT was showing gallstones and patient will have an ultrasound of his gallbladder to follow-up I would recommend for general surgery to evaluate the patient due to his ongoing nausea. Family is also questioning whether patient would be a candidate for inpatient rehabilitation versus subacute rehab. Labs today are showing sodium 131, BUN 26, creatinine 0.98. Review of systems: Constitutional: No reports of fatigue, fever, or chills Cardiovascular: No reports of chest pain or palpitations Respiratory: No reports of worsening shortness of breath , reports cough with occasional blood noted GI:Reports nausea, no vomiting, reports feeling constipated and not passing much gas : No reports of dysuria or retention Neurovascular: No reports of weakness or numbness PHYSICAL EXAMINATION: GENERAL: The patient is alert and oriented x2-3, not in any acute distress. Well developed, well nourished. Obese. HEENT: Pupils are round and equally reacting to light. EOMI. No scleral icterus. No conjunctival pallor. Normocephalic, atraumatic. No pharyngeal erythema. No thyromegaly. CARDIOVASCULAR: S1 and S2 present. No murmurs, rubs, or gallops. PULMONARY: Breath sounds slightly diminished bilateral with some scattered coarse rhonchi noted. ABDOMEN: Soft, obese, nontender, nondistended, normoactive bowel sounds. No palpable organomegaly. MUSCULOSKELETAL: No joint swelling or deformity. EXTREMITIES: No cyanosis, clubbing, or pedal edema. NEUROLOGICAL: Gross neurological examination did not reveal any focal deficits. SKIN: No rashes. Assessment: -Acute non-ST elevation myocardial infarction: Status post cardiac catheterization with stenting 2 to SVG to OM. Patient is continued on statin and aspirin along with Plavix -Acute on chronic congestive heart failure with preserved EF -Acute on chronic hypoxic respiratory failure, multifactorial, secondary to CHF as well as COPD exacerbation -Abdominal discomfort/distention and nausea with chest CT showing gallstones. -Hemoptysis, minimal -COPD, acute exacerbation -Dementia history per daughter -Hyperlipidemia -Sleep apnea uses CPAP machine at home -Obesity with BMI of 31.9 -DVT prophylaxis -Full code Plan: Patient is being followed closely by cardiology has underwent coronary artery stenting 2 and patient to follow-up with his structural steel engineer outpatient. Pulmonary is following the patient closely patient remains on room air. Continues on oral Bumex with stable kidney function. PT OT is chronic patient family bring about inpatient rehab evaluation. This will be discussed with case management on Saturday. Patient will be evaluated by general surgery due to the nausea as well as decreased appetite and constipation. There was gallstones noted on the chest CT and patient will have an ultrasound of his abdomen to follow-up. He has had 2 bowel movements and will continue on bowel regimen. The impression and plan of care has been dictated by Karolina Joseph Nurse Practitioner as directed. Dr. Pia MD I have performed a history and physical examination and medical decision making of this patient, discussed the same with the dictator, and agree with the dictators assessment and plan as written, documented as a scribe. Based on total visit time, I have performed more than 50% of this visit. Objective - Vital Signs Vital signs: Vital Signs Temp 98.0 F 05/11/23 11:37 Pulse 82 05/11/23 16:08 Resp 18 05/11/23 16:08 BP 113/62 05/11/23 11:37 Pulse Ox 92 L 05/11/23 11:37 FiO2 21 05/09/23 01:35 Intake & Output 05/10/23 05/11/23 05/11/23 18:59 06:59 18:59 Intake Total 710 Balance 710 Intake: Oral 710 Other: Voiding Method Urinal Urinal # Voids 4 # Bowel Movements 2 - Labs CBC & Chem 7: 05/10/23 09:31 05/11/23 08:29 Labs: Abnormal Lab Results - Last 24 Hours (Table) 05/10/23 05/10/23 05/11/23 Range/Units 16:36 20:25 06:23 Sodium (137-145) mmol/L Chloride (98-107) mmol/L BUN (9-20) mg/dL Glucose (74-99) mg/dL POC Glucose (mg/dL) 131 H 138 H 117 H (70-110) mg/dL 05/11/23 05/11/23 Range/Units 08:29 11:27 Sodium 131 L (137-145) mmol/L Chloride 95 L (98-107) mmol/L BUN 26 H (9-20) mg/dL Glucose 209 H (74-99) mg/dL POC Glucose (mg/dL) 149 H (70-110) mg/dL Assessment and Plan Time with Patient: Less than 30
[2023-05-11] MEDS: MAG HYDROX/AL HYDROX/SIMETH 30 ML CUP PO PRN (16:30)
[2023-05-11 17:50] LABS: Glucose,Whole Blood 299 mg/dL (70-110)
[2023-05-11] MEDS: PANTOPRAZOLE 40 MG TABLET PO SCH (17:56)
[2023-05-11 20:27] LABS: Glucose,Whole Blood 119 mg/dL (70-110)
[2023-05-11] MEDS: DONEPEZIL 5 MG TAB PO SCH (21:45)
[2023-05-11] MEDS: ALPRAZolam 0.5 MG TAB PO PRN ×2 (21:45)
--- NOTE | 2023-05-11 22:47 | P.PN ---
Subjective Progress Note Date: 05/11/23 HISTORY OF PRESENT ILLNESS: This is an 83-year-old male who underwent cardiac catheterization yesterday with Dr. Mckeon. Patient had 2 stents placed to the SVG to OM. Patient remains on aspirin and Plavix. Patient does report having a cough this afternoon with hemoptysis. He denies any chest pain or pressure. He denies any shortness of breath. Hemoglobin is stable at 13.6. Echocardiogram reveals ejection fraction 50-55% with moderate to severe aortic stenosis. 05/10/2023 Patient examined this morning at the bedside. Patient denies chest pain or pressure. He denies shortness of breath. He reports improvement in his hemoptysis. He underwent CT of the chest yesterday revealing patchy reticular opacities throughout the lungs concerning for pneumonia, cardiomegaly with post CABG changes, cholelithiasis, and hepatic steatosis 05/11/2023 Patient is doing well from cardiac standpoint. Today he is complaining of some abdominal pain for which she's been planned for further workup. He is stable from cardiac vessel standpoint otherwise. PHYSICAL EXAM: VITAL SIGNS: Reviewed. GENERAL: Well-developed in no acute distress. NECK: Supple. No JVD or thyromegaly LUNGS: Respirations even and unlabored. Lungs diminished HEART: Regular rate and rhythm. S1 and S2 heard. Systolic murmur noted. EXTREMITIES: Normal range of motion. No clubbing or cyanosis. Peripheral pulses intact. No lower extremity edema ASSESSMENT: NSTEMI, status post cardiac cath with stent placement 2 to SVG to OM Hemoptysis Leslee pneumonia per CT chest Acute on chronic heart failure with preserved LV systolic function COPD Hypertension Hyperlipidemia Obstructive sleep apnea PLAN: Continue dual antiplatelet therapy with aspirin and Plavix Continue atorvastatin 40 mg daily Discontinue Bumex. Begin Demadex 10mg daily Daily weights, accurate I&O, and monitoring of kidney function Stable for discharge from a cardiac standpoint Dr. Laird's Addendum Patient is doing well status post PCI. His left femoral arterial access site in left radial arterial exercise appears intact with no signs of hematoma or bleeding. He is not much fluid overloaded and I will transition his diuretics with Demadex 10 mg daily. Continue his other guideline directed therapy Discussed the case with pulmonary team who will evaluate his CT, and see if he would benefit from treatment for pneumonia. Okay to discharge from cardiac standpoint otherwise I have spoken to the patient's and updated about this plan I have personally seen and examined the patient. I have personally performed all the components of medical care documented above including detailed histoy, review of system, physican exam, and formulating the assessment and plan. I have personally reviewed the relevant labs, imaging and other diagnostics. I have discussed this in detail with my ORTHODONTIC LAB TECHNICIAN who has helped me with this documentation. I have carefully reviewed this document before finalizing. Thank you for letting cardiology team participating in this patient's care. Dr. Niall Laird MD Cardiovascular Disease Nurse practitioner note has been reviewed by physician. Signing provider agrees with the documented findings, assessment, and plan of care. Objective - Vital Signs Vital signs: Vital Signs Temp 98 F 05/11/23 20:00 Pulse 84 05/11/23 21:27 Resp 18 05/11/23 20:00 BP 96/62 05/11/23 20:00 Pulse Ox 92 L 05/11/23 11:37 FiO2 21 05/09/23 01:35 Intake & Output 05/11/23 05/11/23 05/12/23 06:59 18:59 06:59 Other: Voiding Method Urinal # Bowel Movements 2 - Labs CBC & Chem 7: 05/10/23 09:31 05/11/23 08:29 Labs: Abnormal Lab Results - Last 24 Hours (Table) 05/11/23 05/11/23 05/11/23 Range/Units 06:23 08:29 11:27 Sodium 131 L (137-145) mmol/L Chloride 95 L (98-107) mmol/L BUN 26 H (9-20) mg/dL Glucose 209 H (74-99) mg/dL POC Glucose (mg/dL) 117 H 149 H (70-110) mg/dL 05/11/23 05/11/23 Range/Units 17:49 20:25 Sodium (137-145) mmol/L Chloride (98-107) mmol/L BUN (9-20) mg/dL Glucose (74-99) mg/dL POC Glucose (mg/dL) 299 H 119 H (70-110) mg/dL
[2023-05-12] MEDS: PANTOPRAZOLE 40 MG TABLET PO SCH (06:06)
[2023-05-12 06:13] LABS: Glucose,Whole Blood 217 mg/dL (70-110)
[2023-05-12] MEDS: INSULIN ASPART (NovoLOG) 100 UNIT/ML VIAL SQ SCH ×2 (06:26→12:31)
[2023-05-12] MEDS: IPRATROPIUM-ALBUTEROL 3 ML NEB INHALATION SCH ×2 (08:05→11:11)
[2023-05-12] MEDS: SYMBICORT 160-4.5 MCG INHALER INHALATION SCH (08:06)
[2023-05-12] MEDS: ISOSORBIDE MONONITRATE ER 30 MG TAB.ER.24H PO SCH (08:51)
[2023-05-12] MEDS: ATORVASTATIN 40 MG TAB PO SCH (08:51)
[2023-05-12] MEDS: EZETIMIBE 10 MG TAB PO SCH (08:51)
[2023-05-12] MEDS: ASPIRIN 81 MG PO SCH (08:51)
[2023-05-12] MEDS: LACTULOSE 20 GM/30 ML CUP PO SCH (08:51)
[2023-05-12] MEDS: CLOPIDOGREL 75 MG TAB PO SCH (08:52)
[2023-05-12] MEDS: TORSEMIDE 20 MG TAB PO SCH (08:52)
[2023-05-12] MEDS: lisinopriL 5 MG TAB PO SCH (08:52)
[2023-05-12] MEDS: SENNOSIDES 8.6 MG TAB PO SCH (08:52)
[2023-05-12] MEDS: METOPROLOL TARTRATE 25 MG TAB PO SCH (08:52)
--- NOTE | 2023-05-12 09:15 | US ---
EXAMINATION TYPE: US abdomen complete DATE OF EXAM: 05/12/2023 COMPARISON: 03/07/2022 CLINICAL INDICATION: Male, 80 years old with history of RUQ US; pain TECHNIQUE: Multiple sonographic images of the right upper quadrant are obtained. FINDINGS: EXAM MEASUREMENTS: Liver Length: 14.4 cm Gallbladder Wall: 0.2 cm CBD: 0.5 cm Spleen: 11.3 cm Right Kidney: 10.7x4.9x5.9 cm Left Kidney: : 11.2x5.6x5.0 cm DRAWER MAKER NOTES: Pancreas: appears slightly heterogenous, Tail obscured by overlying bowel gas Liver: increased attenuation and echogenicity Gallbladder: wnl Evidence for sonographic Romero's sign: No CBD: wnl Spleen: wnl Right Kidney: wnl Left Kidney: wnl Prox IVC: wnl Abd Aorta: proximal portion is obscured by gas The intrahepatic portion of the IVC and visualized portions of the abdominal aorta are within normal limits. There is no evidence of cholelithiasis. Common bile duct is unremarkable. Kidneys are symmetr ic and free of hydronephrosis. No renal lesions are seen IMPRESSION: 1. Hepatic steatosis 2. Nonspecific heterogeneity of the pancreas.
[2023-05-12 09:17] LABS: African American GFR (CKD) 79 (>60 ml/min/1.73 sqM); Anion Gap 8 mmol/L; Blood Urea Nitrogen 20 mg/dL (9-20); Calcium 8.2 mg/dL (8.4-10.2); Carbon Dioxide 27 mmol/L (22-30); Chloride 99 mmol/L (98-107); Glucose 105 mg/dL (74-99); Non-African American GFR(CKD) 68 (>60 ml/min/1.73 sqM); Potassium 3.5 mmol/L (3.5-5.1); Sodium 134 mmol/L (137-145)
--- NOTE | 2023-05-12 09:42 | P.GSCN ---
History of Present Illness Consult date: 05/12/23 Reason for Consult: Chronic cholecystitis History of present illness: 83-year-old male admitted to the hospital with shortness of breath. Patient with history of steroid-dependent COPD. Patient was seen by saddle maker as well and underwent cardiac catheterization showing severe coronary artery disease. The patient had stent placement and has moderate to severe aortic stenosis. Patient is on aspirin and Plavix currently. Yesterday was noted to have some vague abdominal discomfort. Describes chronic nausea. Says he has not been eating well even prior to hospitalization with some anorexia. Patient states the abdominal discomfort is across the abdomen but does point to the epigastric region. Says it is not necessarily worse on the right or the left. Nonradiating. He had a CT of the chest performed which shows a minimally di stended gallbladder and some layering material portion of the gallbladder possibly representing small gallstones. Ultrasound performed of the abdomen shows a normal-appearing gallbladder. Patient has no history of known gallbladder disease. No rectal bleeding or melena. No change in the color of his skin urine or stool. He has had a small amount of hemoptysis. Patient has been on steroids however white blood cell count is now normal. Previously was elevated. Prior liver enzymes were normal as well. Review of Systems The patient denies any acute changes in vision or hearing, no dysphagia or odynophagia, no dysuria or hematuria, no headache, no runny nose, no rectal bleeding or melena, no unexplained weight loss Past Medical History Past Medical History: Coronary Artery Disease (CAD), Heart Failure, COPD, Dementia, Hyperlipidemia, Sleep Apnea/CPAP/BIPAP Additional Past Medical History / Comment(s): COPD, obesity, coronary artery disease with previous bypass surgery, cataracts, hiatal hernia, obstructive sleep apnea with CPAP therapy. 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 LIVES WITH HIS OF 61 YEARS IN A SINGLE LEVEL HOME THAT HAS 4 [address] STEPS. NO OUTSIDE SERVICES RECIEVED. HAS A NEBULIZER. NO SERVICE IN PAST. RETIRED FROM [employer]. THEY HAVE 1 PET DOG. Smoking Status: Former smoker Past Alcohol Use History: None Reported Additional Past Alcohol Use History / Comment(s): Pt states he quit smoking almost 35 years ago. Smoked cigars. Has one scotch drink a week Past Drug Use History: None Reported Additional Drug Use History / Comment(s): QUIT MANY YEARS AGO. quit cigars 35 years ago - Past Family History Father History Unknown: Yes Family Medical History: Hyperlipidemia, Myocardial Infarction (MD) Additional Family Medical History / Comment(s): father and brothers(mi's in their 40's and 50's). Mother History Unknown: Yes Family Medical History: CVA/TIA Additional Family Medical History / Comment(s): at age 99 3/4 from a stoke Medications and Allergies Home Medications Medication Instructions Recorded Confirmed Type Ezetimibe [Zetia] 10 mg PO DAILY 02/13/16 05/06/23 History Nitroglycerin Sl Tabs [Nitrostat] 0.4 mg SL Q5M PRN 06/22/16 05/06/23 History clonazePAM [KlonoPIN] 0.5 mg PO DAILY PRN 06/22/16 05/06/23 History Clopidogrel [Plavix] 75 mg PO HS 10/20/19 05/06/23 History Montelukast Sodium [Singulair] 10 mg PO DAILY 06/22/20 05/06/23 History DULoxetine HCL [Cymbalta] 60 mg PO DAILY 07/19/21 05/06/23 History Fluticasone/Umeclidin/Vilanter 1 puff INHALATION RT-DAILY 03/06/22 05/06/23 Hist ory [Trelegy Ellipta 100-62.5-25] Famotidine [Pepcid] 20 mg PO BID #60 tab 11/12/22 05/06/23 Rx Tiotropium 2.5 Mcg/Puff [Spiriva 2 puff INHALATION RT-DAILY #1 each 11/12/22 05/06/23 Rx Respimat 2.5 Mcg] Albuterol Inhaler [Ventolin Hfa 2 puff INHALATION RT-QID PRN 02/23/23 05/06/23 History Inhaler] Baclofen 10 mg PO TID PRN 02/23/23 05/06/23 History Ipratropium-Albuterol Nebulize 3 ml INHALATION RT-QID PRN #20 each 02/25/23 05/06/23 Rx [Duoneb 0.5 mg-3 mg/3 ml Soln] Donepezil [Aricept] 5 mg PO HS 05/06/23 05/06/23 History predniSONE 5 mg PO DAILY 05/06/23 05/06/23 History Aspirin 81 mg PO DAILY #30 tab 05/10/23 Rx Atorvastatin [Lipitor] 40 mg PO DAILY #30 tab 05/10/23 Rx Ipratropium-Albuterol Nebulize 3 ml INHALATION RT-QID each 05/10/23 Rx [Duoneb 0.5 mg-3 mg/3 ml Soln] Isosorbide Mononitrate ER [Imdur] 30 mg PO DAILY #30 tab 05/10/23 Rx Lactulose [Cephulac] 30 gm PO TID PRN #360 ml 05/10/23 Rx Metoprolol Tartrate [Lopressor] 25 mg PO BID #60 tab 05/10/23 Rx Sennosides [Senokot] 8.6 mg PO BID #30 tab 05/10/23 Rx Torsemide [Demadex] 10 mg PO DAILY 30 Days #15 tab 05/10/23 Rx lisinopriL [Zestril] 5 mg PO DAILY #30 tab 05/10/23 Rx Allergies Allergy/AdvReac Type Severity Reaction Status Date / Time No Known Allergies Allergy Verified 05/06/23 18:50 Surgical - Exam Vital Signs Temp Pulse Resp BP Pulse Ox 98.6 F 98 19 151/80 95 05/06/23 17:26 05/06/23 17:26 05/06/23 17:26 05/06/23 17:26 05/06/23 17:26 Physical exam: General: Well-developed, well-nourished HEENT: Normocephalic, sclerae nonicteric Abdomen: Obese, mild epigastric tenderness, nondistended Extremities: No edema Neuro: Alert and oriented Results - Labs 05/10/23 09:31 05/12/23 08:26 Abnormal Lab Results - Last 24 Hours (Table) 05/11/23 05/11/23 05/11/23 Range/Units 08: 11:27 17:49 Sodium 131 L (137-145) mmol/L Chloride 95 L (98-107) mmol/L BUN 26 H (9-20) mg/dL Glucose 209 H (74-99) mg/dL POC Glucose (mg/dL) 149 H 299 H (70-110) mg/dL Calcium (8.4-10.2) mg/dL 05/11/23 05/12/23 05/12/23 Range/Units 20:25 06:12 08:26 Sodium 134 L (137-145) mmol/L Chloride (98-107) mmol/L BUN (9-20) mg/dL Glucose 105 H (74-99) mg/dL POC Glucose (mg/dL) 119 H 217 H (70-110) mg/dL Calcium 8.2 L (8.4-10.2) mg/dL Diabetes panel 05/11/23 05/12/23 Range/Units 08:29 08:26 Sodium 131 L 134 L (137-145) mmol/L Potassium 4.1 3.5 (3.5-5.1) mmol/L Chloride 95 L 99 (98-107) mmol/L Carbon Dioxide 25 27 (22-30) mmol/L BUN 26 H 20 (9-20) mg/dL Creatinine 0.98 1.02 (0.66-1.25) mg/dL Glucose 209 H 105 H (74-99) mg/dL Calcium 8.7 8.2 L (8.4-10.2) mg/dL Calcium panel 05/11/23 05/12/23 Range/Units 08:29 08:26 Calcium 8.7 8.2 L (8.4-10.2) mg/dL Pituitary panel 05/11/23 05/12/23 Range/Units 08:29 08:26 Sodium 131 L 134 L (137-145) mmol/L Potassium 4.1 3.5 (3.5-5.1) mmol/L Chloride 95 L 99 (98-107) mmol/L Carbon Dioxide 25 27 (22-30) mmol/L BUN 26 H 20 (9-20) mg/dL Creatinine 0.98 1.02 (0.66-1.25) mg/dL Glucose 209 H 105 H (74-99) mg/dL Calcium 8.7 8.2 L (8.4-10.2) mg/dL Adrenal panel 05/11/23 05/12/23 Range/Units 08:29 08:26 Sodium 131 L 134 L (137-145) mmol/L Potassium 4.1 3.5 (3.5-5.1) mmol/L Chloride 95 L 99 (98-107) mmol/L Carbon Dioxide 25 27 (22-30) mmol/L BUN 26 H 20 (9-20) mg/dL Creatinine 0.98 1.02 (0.66-1.25) mg/dL Glucose 209 H 105 H (74-99) mg/dL Calcium 8.7 8.2 L (8.4-10.2) mg/dL Assessment and Plan (1) Chronic cholecystitis Narrative/Plan: 83-year-old male with upper abdominal pain and recent CAT scan showing possible gallstones. Certainly some of his symptoms could be related to chronic cholecy stitis. Patient is not a candidate for surgery at this time and thankfully the appearance of the gallbladder on ultrasound today is normal without significant inflammation seen. Recommend conservative management. He is currently on antibiotics. Would continue that postdischarge for 1 week. Will discuss further with the patient what symptoms to monitor for. No plans for cholecystostomy tube at this time. We'll follow with you. Current Visit: Yes Status: Acute Code(s): K81.1 - CHRONIC CHOLECYSTITIS SNOMED Code(s): 52377545
[2023-05-12 11:40] LABS: Glucose,Whole Blood 185 mg/dL (70-110)
--- NOTE | 2023-05-12 12:04 | P.PN ---
Subjective Progress Note Date: 05/12/23 I am seeing this patient in new consultation today 05/07/2023 in the emergency room for suspected exacerbation of diastolic congestive heart failure and COPD. This is a pleasant 82-year-old male patient with a history of oxygen and prednisone dependent COPD, coronary artery disease status post CABG and s ubsequent PCI, congestive heart failure, hyperlipidemia, generalized anxiety disorder, obesity, obstructive sleep apnea on CPAP. He does follow with Dr. Ortega in the office for management of his COPD. Patient presented to the emergency room yesterday evening complaining of shortness of breath that started approximately 48 hours ago, associated with a nonproductive cough. Denies any fevers, chills, myalgias, hemoptysis. Denies sick contacts or travel history. Denies chest pain, heart palpitations, lower extremity swelling. Admits orthopnea. Patient was hospitalized 2 months ago with similar symptoms. He is currently sitting up in bed, on 3 L/m nasal cannula, in no acute distress. [facility] st x-ray on arrival showed cardiomegaly, with pulmonary vascular congestions, and bilateral pleural effusions consistent with CHF exacerbation. NT proBNP was only mildly elevated, however, at 267. Troponins were elevated at 0.867. ECG shows normal sinus rhythm with a right bundle branch block and nonspecific T- wave inversion. CBC on arrival was unremarkable without any leukocytosis. BMP on arrival was also unremarkable. Normal saline is currently infusing at 130 ML's per hour. Afebrile. Patient is hemodynamically stable. On today's evaluation of a 05/08 2023, the patient seems to be more comfortable on 2 L of Oxymizer nasal cannula. The patient remains on Lasix 20 mg IV every 12 hours. The patient underwent a cardiac catheterization yesterday and the results were noted. In summary, the patient was found to have severe coronary artery disease of the [place] coronary arteries. There was moderate nonobstructive disease involving the [place] vessels distal to the anastomosis. The venous graft to OM and PDA was patent, HERNANDEZ was patent to LAD, there was elevated left anterior diastolic pressure and the patient was found to have moderate degree of aortic stenosis with a peak gradient of 30. Subsequently the patient was taken back to the cytogenetics laboratory manager and the patient has successful stenting of the SVG to OM with a reduction of the stenosis from 90% down to 5%. Echocardiogram was done and it showed a preserved LV function with an EF of around 50-55%. The patient had moderate to severe aortic stenosis. He has no other complaints otherwise. History of any chest pain. His troponin peaked at 1.09. HbA1c is at 7.3. On today's evaluation of a 05/09 2023, the patient is feeling better. No chest pain.the patient is post cardiac catheterization and stenting of the SVG to OM. He is currently on aspirin and Plavix. He is also on metoprolol. History of any chest pain. He is also known to have moderate degree of aortic stenosis. He is currently on room air oxygen. He does have some coarse crackles in lung bases bilaterally. Suspect some background pulmonary fibrosis in lung bases. Labs from today was noted. BUN is at 28 with a creatinine of 0.9. The physical 11.2 with a hemoglobin of 13.6. Platelet count is at 136. Admitting count is some limited hemoptysis earlier/bloody mucus which is expected as the patient is currently on aspirin and Plavix and he does have moderate to severe degree of aortic stenosis. He is previous CAT scan of the chest was noted and there is no evidence of any lung masses. There may be some background bibasilar pulmonary fibrosis. 05/10/2023, the patient is being seen for a follow-up. The patient is having some minimal bloody sputum. He is on aspirin and Plavix. He is also noted aortic stenosis. A CAT scan of the chest was done and I reviewed the CAT scan of the chest and I'm concerned of chronic into 30s lung bases probably component of fibrosis. No lung masses. Noted the amount of blood is minimal in his sp utum. No hematemesis. No epistaxis. No chest pain is post cardiac catheterization and stenting of the SVG to OM. The blood work shows a white cell count of 8.4, he was 14.7, BUN is 26 with a creatinine of 1.09 and a sodium level is at 134. ProBNP level is 281. The patient is free of any chest pain. 05/11/2023, the patient is having abdominal discomfort. He is feeling nauseated and he feels that he is going to follow-up. No direct tenderness in his abdominal examination. No fever or chills. He remains on room air oxygen. Noted the patient on IV Rocephin. His condition antibiotic effect. Note that he has been noted. BUN is 26 with a creatinine of 0.9. Serum bicarbs of 25 and a sodium level of 131. No hemoptysis for now. He remains on room air oxygen. 05/12/2023, the patient has no chest pain and has no shortness of breath and remains on room air oxygen. In regards to his abdominal discomfort, potassium of the abdomen was done yesterday that showed no acute abnormalities. Ultrasound abdomen was done and the patient was found to have hepatic steatosis and there is no evidence of cholelithiasis. The patient was given lactulose and is having some liquidy bowel movements. No fever. No chills. I stop the antibiotics yesterday. It is possible that his abdominal discomfort is related to the laxatives. I recommend stopping lactulose for now. Labs are stable and the patient's sodium level of 135, bicarb is 27, BUN is at 20 with a creatinine of 1.02. Objective - Vital Signs Vital signs: Vital Signs Temp 97.6 F 05/12/23 08:00 Pulse 76 05/12/23 08:17 Resp 18 05/12/23 08:00 BP 165/65 05/12/23 08:00 Pulse Ox 92 L 05/12/23 08:08 FiO2 21 05/09/23 01:35 Intake & Output 05/11/23 05/12/23 05/12/23 18:59 06:59 18:59 Intake Total 480 Balance 480 Intake: Oral 480 - Exam GENERAL EXAM: Alert, 83-year-old white male, comfortable in no apparent distress. The patient has been weaned down to room air oxygen HEAD: Normocephalic and atraumatic EYES: Normal reaction of pupils, equal size. NOSE: Clear with pink turbinates. THROAT: No erythema or exudates. NECK: No masses, no JVD. CHEST: No chest wall deformity. LUNGS: Equal air entry with bibasilar inspiratory crackles and minimal expiratory wheezes throughout. No conversational dyspnea or accessory muscle use.. CVS: S1 and S2 normal with no audible murmur, regular rhythm. No extra heart sounds ABDOMEN: No hepatosplenomegaly, active bowel sounds, no guarding or rigidity. SPINE: No scoliosis or deformity SKIN: No rashes CENTRAL NERVOUS SYSTEM: No focal deficits, tone is normal in all 4 extremities. EXTREMITIES: There is no peripheral edema, clubbing, or cyanosis. Peripheral pulses are intact. - Labs CBC & Chem 7: 05/10/23 09:31 05/12/23 08:26 Labs: Abnormal Lab Results - Last 24 Hours (Table) 05/11/23 05/11/23 05/11/23 Range/Units 11:27 17:49 20:25 Sodium (137-145) mmol/L Glucose (74-99) mg/dL POC Glucose (mg/dL) 149 H 299 H 119 H (70-110) mg/dL Calcium (8.4-10.2) mg/dL 05/12/23 05/12/23 Range/Units 06:12 08:26 Sodium 134 L (137-145) mmol/L Glucose 105 H (74-99) mg/dL POC Glucose (mg/dL) 217 H (70-110) mg/dL Calcium 8.2 L (8.4-10.2) mg/dL Assessment and Plan Assessment: Acute on chronic hypoxemic respiratory failure, currently on 3 L/m nasal alireza narayan, multifactorial secondary to exacerbation of diastolic congestive heart failure and mild COPD exacerbation. Chest x-ray on arrival showed cardiomegaly, with pulmonary vascular congestions, and bilateral pleural effusions consistent with CHF exacerbation. NT proBNP was only mildly elevated, however, at 267. Most recent echocardiogram from 06/16/2022 shows a preserved left ventricular ejection fraction of 50-55%, with moderately increased LVH, and moderate aortic stenosis. The patient was diabetes and he responded to diuretics and the patient is currently on room air oxygen Acute non-ST segment elevation myocardial infarction, cardiac catheterization was done and the patient underwent further intervention with stenting of the SVG to obtuse marginal Moderate degree of aortic stenosis, please refer to the echocardiogram in the cardiac catheterization report Moderate chronic obstructive pulmonary disease, baseline FEV1 72% of predicted. Patient is oxygen dependent and the patient has been utilizing a bit on about treatments 4 times a day [id number] and recently hospitalized for an acute COPD exacerbation Coronary artery disease, with previous CABG and subsequent PCI, followed up by Dr. Vuong from cardiology Hyperlipidemia Obesity, with a BMI of 33.5 kg/m Obstructive sleep apnea, with home CPAP Generalized anxiety disorder Remote ex-smoker Nausea along with abdominal discomfort, rule out ileus, rule out antibiotic induced GI upset, improved, could be related to lactulose Plan: Stop lactulose No need for antibiotics Surgical consultation and obtain another and platelets appreciated No specific hemoptysis, likely due to combination of the platelet agents and aortic stenosis. His chest x-ray was also showing a component of CHF CAT scan of the chest was reviewed and shows chronic interstitial change in lung bases, no clear indication for pneumonia. Suspected an underlying bibasilar pulmonary fibrosis as the patient continues to have coarse crackles in lung bases bilaterally. Clinically stable and the patient denies having any shortness of breath or chest pain. Review of the previous CAT scan of the chest and there may be a suspicion for bibasilar pulmonary fibrosis. Similar findings are seen on the follow-up CAT scan of the chest that was obtained yesterday. No evidence of the lung masses or tumors. Patient is currently on room air oxygen Diuretics to be continued and the patient is currently on Demadex 10 mg by mouth daily Continue aspirin and Plavix Continue metoprolol at a dose of 25 mg twice a day Continue Zestril 5 mg by mouth daily Oxygenation is improved We'll continue to follow him make further recommendations based on his progress. Possible home today
[2023-05-12] MEDS: MAG HYDROX/AL HYDROX/SIMETH 30 ML CUP PO PRN (12:31)
[2023-05-12 12:59] VITALS: BP 91/48; PULSE 75; RESP 16; TEMP 98
--- NOTE | 2023-05-12 13:42 | P.DS ---
Providers Date of admission: 05/06/23 20:45 Attending physician: Mey Alaniz Consults: 05/06/23 20:43 Consult Physician Routine Consulting Provider: Heydi Bhardwaj Consult Reason/Comments: copd Do you want consulting provider notified?: Yes Consult Physician Routine Consulting Provider: Ziyad Mckeon Consult Reason/Comments: chf Do you want consulting provider notified?: Yes 05/08/23 16:22 Consult Physician Routine Consulting Provider: [facility] Consult Reason/Comments: Post Interventional Patient Do you want consulting provider notified?: Already Contacted 05/11/23 12:50 Consult Physician Routine Consulting Provider: Demetrio Diaz Consult Reason/Comments: Gall stones Do you want consulting provider notified?: Yes Primary care physician: Doretha Rose Hospital Course: Final Diagnosis -Acute non-ST elevation myocardial infarction: Status post cardiac catheterization with stenting 2 to SVG to OM. -Acute on chronic congestive heart failure with preserved EF -Acute on chronic hypoxic respiratory failure, multifactorial, secondary to CHF as well as COPD exacerbation -Abdominal discomfort/distention and nausea with chest CT showing gallstones, F/U ultrasound showing no gallstones. -Hemoptysis, minimal -COPD, acute exacerbation -Dementia history per daughter -Hyperlipidemia -Sleep apnea uses CPAP machine at home -Obesity with BMI of 31.9 -DVT prophylaxis -Full code Discharge Disposition Patient is evaluated today sitting up in the chair reports improvement in his appetite and decreased nausea or abdominal discomfort. He is medically stable for discharge today. He has been evaluated by general surgery is recommending conservative treatment and gallbladder ultrasound showed no evidence of cholelithiasis. Patient may have passed a stone which attributed to his abdominal discomfort. He is currently saturating 95% on room air. He will be discharged on his usual daily prednisone at 5 mg daily. Patient has been transitioned from Lasix to Demadex on discharge. Patient to follow-up with cardiology, pulmonary services as well as general surgery and his PCP. Recommending to repeat labs in 2 to 3 days on discharge. Hospital Course This is an 83-year-old male with medical history of COPD, hyperlipidemia, sleep apnea, obesity, dementia. Patient presents to the hospital with chest pain. He denied any fever or chills he did have some associated shortness of breath. Initial workup reveals elevated troponin level at 0.8 and peaked at 1.3. Chest x-ray showed bilateral pleural effusions. Patient's echocardiogram in the past showed normal EF. He had an EKG that shows some nonspecific T-wave inversions. A proBNP was essentially normal. Patient underwent diagnostic cardiac catheterization , back to the Bowling Floor Manager where patient underwent 2 stents to SVG to OM. He is continued on plavix and statin. Patient was also seen by pulmonary services and being treated for a COPD exacerbation with steroids and breathing treatments. He was requiring nasal cannula on admission. Currently now he is in the interim air. Additionally patient was reporting some nausea and stomach upset and has not had a bowel movement since admission. He had a CT of the chest this admission which did show reticular paced medications at the lungs concerning for pneumonia cardiomegaly with post-CABG changes hepatic steatosis and cholelithiasis. Pulmonary fibrosis is of concern. Patient had continue with bowel discomfort and nausea and noted that the chest CT was showing gallstones and patient was evaluated by general surgery. He had a follow-up gallbladder ultrasound shows hepatic steatosis and there is no evidence for gallstones. General surgery recommending patient to continue on oral anibiotics for 1 week on discharge. He would be high risk for surgical intervention for the gallbladder. Patient may have passed a stone as his abdominal discomfort has improved and he has increased appetite. He has also had bowel movement.s He denies chest pain, denies shortness of breath. He denies cough. This has significantly improved. Lungs are clear, S1 S2 auscultated, abdomen is soft and nontender normoactive bowel sounds. Patient will be discharged. Please see medication reconciliation for list of current medication. Thank you for allowing us to participate in the care of this patient. The impression and plan of care has been dictated by Karolina Joseph, Nurse Practitioner as directed. Dr. Pia MD I have performed a history and physical examination and medical decision making of this patient, discussed the same with the dictator, and agree with the dictators assessment and plan as written, documented as a scribe. Based on total visit time, I have performed more than 50% of this visit. Patient Condition at Discharge: Fair Plan - Discharge Summary Discharge Rx Participant: No New Discharge Prescriptions: New Aspirin 81 mg PO DAILY #30 tab Lactulose [Cephulac] 30 gm PO TID PRN #360 ml PRN Reason: Constipation Torsemide [Demadex] 10 mg PO DAILY 30 Days #15 tab Ipratropium-Albuterol Nebulize [Duoneb 0.5 mg-3 mg/3 ml Soln] 3 ml INHALATION RT-QID each Isosorbide Mononitrate ER [Imdur] 30 mg PO DAILY #30 tab Metoprolol Tartrate [Lopressor] 25 mg PO BID #60 tab lisinopriL [Zestril] 5 mg PO DAILY #30 tab Amoxic-Pot Clav 875-125Mg [Augmentin 875-125] 1 tab PO Q12HR 7 Days #14 tab Atorvastatin [Lipitor] 40 mg PO DAILY #30 tab Sennosides [Senokot] 8.6 mg PO BID #30 tab Pantoprazole [Protonix] 40 mg PO DAILY #30 tab Continue Ezetimibe [Zetia] 10 mg PO DAILY clonazePAM [KlonoPIN] 0.5 mg PO DAILY PRN PRN Reason: Anxiety Nitroglycerin Sl Tabs [Nitrostat] 0.4 mg SL Q5M PRN PRN Reason: Chest Pain Clopidogrel [Plavix] 75 mg PO HS Montelukast Sodium [Singulair] 10 mg PO DAILY DULoxetine HCL [Cymbalta] 60 mg PO DAILY Fluticasone/Umeclidin/Vilanter [Trelegy Ellipta 100-62.5-25] 1 puff INHALATION RT-DAILY Famotidine [Pepcid] 20 mg PO BID #60 tab Tiotropium 2.5 Mcg/Puff [Spiriva Respimat 2.5 Mcg] 2 puff INHALATION RT-DAILY #1 each Baclofen 10 mg PO TID PRN PRN Reason: Pain Albuterol Inhaler [Ventolin Hfa Inhaler] 2 puff INHALATION RT-QID PRN PRN Reason: Shortness Of Breath Ipratropium-Albuterol Nebulize [Duoneb 0.5 mg-3 mg/3 ml Soln] 3 ml INHALATION RT-QID PRN #20 each PRN Reason: Shortness Of Breath Donepezil [Aricept] 5 mg PO HS predniSONE 5 mg PO DAILY Discontinued Docusate [Colace] 100 mg PO BID PRN PRN Reason: Constipation Rosuvastatin Calcium 10 mg PO DAILY atenoloL 25 mg PO DAILY Furosemide [Lasix] 20 mg PO DAILY Discharge Medication List Ezetimibe [Zetia] 10 mg PO DAILY 02/13/16 [History] Nitroglycerin Sl Tabs [Nitrostat] 0.4 mg SL Q5M PRN 06/22/16 [History] clonazePAM [KlonoPIN] 0.5 mg PO DAILY PRN 06/22/16 [History] Clopidogrel [Plavix] 75 mg PO HS 10/20/19 [History] Montelukast Sodium [Singulair] 10 mg PO DAILY 06/22/20 [History] DULoxetine HCL [Cymbalta] 60 mg PO DAILY 07/19/21 [History] Fluticasone/Umeclidin/Vilanter [Trelegy Ellipta 100-62.5-25] 1 puff INHALATION RT-DAILY 03/06/22 [History] Famotidine [Pepcid] 20 mg PO BID #60 tab 11/12/22 [Rx] Tiotropium 2.5 Mcg/Puff [Spiriva Respimat 2.5 Mcg] 2 puff INHALATION RT-DAILY #1 each 11/12/22 [Rx] Albuterol Inhaler [Ventolin Hfa Inhaler] 2 puff INHALATION RT-QID PRN 02/23/23 [History] Baclofen 10 mg PO TID PRN 02/23/23 [History] Ipratropium-Albuterol Nebulize [Duoneb 0.5 mg-3 mg/3 ml Soln] 3 ml INHALATION RT-QID PRN #20 each 02/25/23 [Rx] Donepezil [Aricept] 5 mg PO HS 05/06/23 [History] predniSONE 5 mg PO DAILY 05/06/23 [History] Aspirin 81 mg PO DAILY #30 tab 05/10/23 [Rx] Atorvastatin [Lipitor] 40 mg PO DAILY #30 tab 05/10/23 [Rx] Ipratropium-Albuterol Nebulize [Duoneb 0.5 mg-3 mg/3 ml Soln] 3 ml INHALATION RT-QID each 05/10/23 [Rx] Isosorbide Mononitrate ER [Imdur] 30 mg PO DAILY #30 tab 05/10/23 [Rx] Lactulose [Cephulac] 30 gm PO TID PRN #360 ml 05/10/23 [Rx] Metoprolol Tartrate [Lopressor] 25 mg PO BID #60 tab 05/10/23 [Rx] Sennosides [Senokot] 8.6 mg PO BID #30 tab 05/10/23 [Rx] Torsemide [Demadex] 10 mg PO DAILY 30 Days #15 tab 05/10/23 [Rx] lisinopriL [Zestril] 5 mg PO DAILY #30 tab 05/10/23 [Rx] Amoxic-Pot Clav 875-125Mg [Augmentin 875-125] 1 tab PO Q12HR 7 Days #14 tab 05/12/23 [Rx] Pantoprazole [Protonix] 40 mg PO DAILY #30 tab 05/12/23 [Rx] Follow up Appointment(s)/Referral(s): Demetrio Diaz MD [Medical Doctor] - 1 Week Ziyad Mckeon MD [STAFF PHYSICIAN] - 1 Week Doretha Rose MD [Primary Care Provider] - 1-2 days [facility], [NON-STAFF] - Heydi Bhardwaj MD [STAFF PHYSICIAN] - 1 Week Ambulatory/Diagnostic Orders: Complete Blood Count w/diff [LAB.AMB] Time Frame: 3 Days, Location: None Selected Patient Instructions/Handouts: *Surgery [facility] - After Heart Catheterization - Reconstructive Dentist Instructions, Low Fat Diet (DC), COPD (Chronic Obstructive Pulmonary Disease) (DC) Activity/Diet/Wound Care/Special Instructions: Activity Limited until follow-up Follow-up with primary care provider on discharge Follow-up with your cardiac nurse practitioner this week Continue taking medications as prescribed Continue with lactulose up to 3 times daily as needed for constipation and hold if having loose stools Follow-up pulmonary outpatient Continue oral augmentin BID for 1 week on discharge Follow up with general surgery Discharge Disposition: HOME WITH HOME HEALTH SERVICES
--- NOTE | 2023-05-12 19:47 | P.PN ---
Subjective Progress Note Date: 05/12/23 HISTORY OF PRESENT ILLNESS: This is an 83-year-old male who underwent cardiac catheterization yesterday with Dr. Mckeon. Patient had 2 stents placed to the SVG to OM. Patient remains on aspirin and Plavix. Patient does report having a cough this afternoon with hemoptysis. He denies any chest pain or pressure. He denies any shortness of breath. Hemoglobin is stable at 13.6. Echocardiogram reveals ejection fraction 50-55% with moderate to severe aortic stenosis. 05/10/2023 Patient examined this morning at the bedside. Patient denies chest pain or pressure. He denies shortness of breath. He reports improvement in his hemoptysis. He underwent CT of the chest yesterday revealing patchy reticular opacities throughout the lungs concerning for pneumonia, cardiomegaly with post CABG changes, cholelithiasis, and hepatic steatosis 05/11/2023 Patient is doing well from cardiac standpoint. Today he is complaining of some abdominal pain for which she's been planned for further workup. He is stable from cardiac vessel standpoint otherwise. PHYSICAL EXAM: VITAL SIGNS: Reviewed. GENERAL: Well-developed in no acute distress. NECK: Supple. No JVD or thyromegaly LUNGS: Respirations even and unlabored. Lungs diminished HEART: Regular rate and rhythm. S1 and S2 heard. Systolic murmur noted. EXTREMITIES: Normal range of motion. No clubbing or cyanosis. Peripheral pulses intact. No lower extremity edema ASSESSMENT: NSTEMI, status post cardiac cath with stent placement 2 to SVG to OM Hemoptysis Leslee pneumonia per CT chest Acute on chronic heart failure with preserved LV systolic function COPD Hypertension Hyperlipidemia Obstructive sleep apnea PLAN: Continue dual antiplatelet therapy with aspirin and Plavix Continue atorvastatin 40 mg daily Discontinue Bumex. Begin Demadex 10mg daily Daily weights, accurate I&O, and monitoring of kidney function Stable for discharge from a cardiac standpoint Dr. Laird's Addendum Patient is doing well status post PCI. His left femoral arterial access site in left radial arterial exercise appears intact with no signs of hematoma or bleeding. He is not much fluid overloaded and I will transition his diuretics with Demadex 10 mg daily. Continue his other guideline directed therapy Discussed the case with pulmonary team who will evaluate his CT, and see if he would benefit from treatment for pneumonia. Okay to discharge from cardiac standpoint otherwise I have spoken to the patient's and updated about this plan I have personally seen and examined the patient. I have personally performed all the components of medical care documented above including detailed histoy, review of system, physican exam, and formulating the assessment and plan. I have personally reviewed the relevant labs, imaging and other diagnostics. I have discussed this in detail with my SEALING AND CANCELING MACHINE OPERATOR who has helped me with this documentation. I have carefully reviewed this document before finalizing. Thank you for letting cardiology team participating in this patient's care. Dr. Niall Laird MD Cardiovascular Disease Nurse practitioner note has been reviewed by physician. Signing provider agrees with the documented findings, assessment, and plan of care. Objective - Vital Signs Vital signs: Vital Signs Temp 98.0 F 05/12/23 12:00 Pulse 75 05/12/23 12:00 Resp 16 05/12/23 12:00 BP 91/48 05/12/23 12:00 Pulse Ox 93 L 05/12/23 12:00 FiO2 21 05/09/23 01:35 Intake & Output 05/12/23 05/12/23 05/13/23 06:59 18:59 06:59 Intake Total 480 Balance 480 Intake: Oral 480 - Labs CBC & Chem 7: 05/10/23 09:31 05/12/23 08:26 Labs: Abnormal Lab Results - Last 24 Hours (Table) 05/11/23 05/12/23 05/12/23 Range/Units 20:25 06:12 08:26 Sodium 134 L (137-145) mmol/L Glucose 105 H (74-99) mg/dL POC Glucose (mg/dL) 119 H 217 H (70-110) mg/dL Calcium 8.2 L (8.4-10.2) mg/dL 05/12/23 Range/Units 11:37 Sodium (137-145) mmol/L Glucose (74-99) mg/dL POC Glucose (mg/dL) 185 H (70-110) mg/dL Calcium (8.4-10.2) mg/dL
[2023-05-12] MEDS ORDERED: INSULIN DETEMIR (LEVEMIR) 100 UNIT/ML SYR SQ SCH (21:00)
== END 2023-05-12 13:34 | disposition home health service (06) | DRG 246 ==
LOC: EC 17:23 → 4SSUR 20:45 → 3SCARD 20:53
PROVIDERS: ADMIT Hospitalist; ATTEND Hospitalist
PROC: 4A023N7 Measurement of Cardiac Sampling and Pressure, Left Heart, Percutaneous Approach (ICD-10-PCS; 2023-05-07)
PROC: B2111ZZ Fluoroscopy of Multiple Coronary Arteries using Low Osmolar Contrast (ICD-10-PCS; 2023-05-07)
PROC: B2131ZZ Fluoroscopy of Multiple Coronary Artery Bypass Grafts using Low Osmolar Contrast (ICD-10-PCS; 2023-05-07)
PROC: 027034Z Dilation of Coronary Artery, One Artery with Drug-eluting Intraluminal Device, Percutaneous Approach (ICD-10-PCS; principal; 2023-05-08 13:30)
PROC: B240ZZ3 Ultrasonography of Single Coronary Artery, Intravascular (ICD-10-PCS; 2023-05-08 13:30)
DX: I21.4 Non-ST elevation (NSTEMI) myocardial infarction (principal); I50.33 Acute on chronic diastolic (congestive) heart failure; J96.21 Acute and chronic respiratory failure with hypoxia; I25.719 Atherosclerosis of autologous vein coronary artery bypass graft(s) with unspecified angina pectoris; J44.1 Chronic obstructive pulmonary disease with (acute) exacerbation; F03.94 Unspecified dementia, unspecified severity, with anxiety; T82.855A Stenosis of coronary artery stent, initial encounter; R04.2 Hemoptysis; K80.10 Calculus of gallbladder with chronic cholecystitis without obstruction; I11.0 Hypertensive heart disease with heart failure; I25.119 Atherosclerotic heart disease of native coronary artery with unspecified angina pectoris; K76.0 Fatty (change of) liver, not elsewhere classified; E66.9 Obesity, unspecified; I35.0 Nonrheumatic aortic (valve) stenosis; E78.5 Hyperlipidemia, unspecified; G47.33 Obstructive sleep apnea (adult) (pediatric); I45.10 Unspecified right bundle-branch block; F41.1 Generalized anxiety disorder; K30 Functional dyspepsia; K59.00 Constipation, unspecified; Y71.1 Therapeutic (nonsurgical) and rehabilitative cardiovascular devices associated with adverse incidents; Z20.822 Contact with and (suspected) exposure to COVID-19; Z99.81 Dependence on supplemental oxygen; Z68.33 Body mass index [BMI] 33.0-33.9, adult; Z95.1 Presence of aortocoronary bypass graft; Z95.5 Presence of coronary angioplasty implant and graft; Z87.891 Personal history of nicotine dependence; Z79.02 Long term (current) use of antithrombotics/antiplatelets; Z79.51 Long term (current) use of inhaled steroids; Z79.82 Long term (current) use of aspirin; I25.2 Old myocardial infarction; Z79.52 Long term (current) use of systemic steroids; Z79.899 Other long term (current) drug therapy; Z82.49 Family history of ischemic heart disease and other diseases of the circulatory system
CPT/HCPCS: 36415; 71045; 71250; 74022; 76700; 76937; 80048; 80053; 83036; 83735; 83880; 84100; 84484; 85025; 85027; 85610; 85730; 87636; 92978; 93005; 93306; 93459; 94640; 94660; 94760; 96365; 96366; 96367; 96375; 96376; 99291

== ENCOUNTER 2023-08-06 19:36 | Inpatient (IN) | payer MEDICARE ==
--- NOTE | 2023-08-06 20:02 | ED ---
Chest Pain HPI - General Chief Complaint: Chest Pain Stated Complaint: Chest Pain Time Seen by Provider: 08/06/23 19:41 Source: patient, RN notes reviewed Mode of arrival: EMS Limitations: no limitations - History of Present Illness Initial Comments: This is an 83-year-old male who presents to the emergency department for chest pain. States that this is a substernal tightness. This started approximately one hour ago. He took nitroglycerin, but proceeded to throw it back up. The episode lasted about 45 minutes and has since resolved. Reports problems with ongoing shortness of breath related to COPD, but states that this does not feel worse than normal. He did however start coughing today, and when his listened to his lungs she was concerned and they sounded bad. He does have a substantial cardiac history, including a CABG. He was also admitted here in April for chest pain and ended up having 2 stents placed. MD Complaint: chest pain - Related Data Home Medications Medication Instructions Recorded Confirmed Ezetimibe [Zetia] 10 mg PO DAILY 02/13/16 08/06/23 Nitroglycerin Sl Tabs [Nitrostat] 0.4 mg SL Q5M PRN 06/22/16 08/06/23 clonazePAM [KlonoPIN] 0.5 mg PO DAILY PRN 06/22/16 08/06/23 Clopidogrel [Plavix] 75 mg PO HS 10/20/19 08/06/23 Montelukast Sodium [Singulair] 10 mg PO DAILY 06/22/20 08/06/23 DULoxetine HCL [Cymbalta] 60 mg PO DAILY 07/19/21 08/06/23 Fluticasone/Umeclidin/Vilanter 1 puff INHALATION RT-DAILY 03/06/22 08/06/23 [Trelegy Ellipta 100-62.5-25] Albuterol Inhaler [Ventolin Hfa 2 puff INHALATION RT-QID PRN 02/23/23 08/06/23 Inhaler] Donepezil [Aricept] 5 mg PO HS 05/06/23 08/06/23 predniSONE 5 mg PO DAILY 05/06/23 08/06/23 polyethylene glycoL 3350 [Miralax] 17 gm PO DAILY 08/06/23 08/06/23 Previous Rx's Medication Instructions Recorded Ipratropium-Albuterol Nebulize 3 ml INHALATION RT-QID PRN #20 each 02/25/23 [Duoneb 0.5 mg-3 mg/3 ml Soln] Aspirin 81 mg PO DAILY #30 tab 05/10/23 Atorvastatin [Lipitor] 40 mg PO DAILY #30 tab 05/10/23 Ipratropium-Albuterol Nebulize 3 ml INHALATION RT-QID each 05/10/23 [Duoneb 0.5 mg-3 mg/3 ml Soln] Isosorbide Mononitrate ER [Imdur] 30 mg PO DAILY #30 tab 05/10/23 Lactulose [Cephulac] 30 gm PO TID PRN #360 ml 05/10/23 Metoprolol Tartrate [Lopressor] 25 mg PO BID #60 tab 05/10/23 Torsemide [Demadex] 10 mg PO DAILY 30 Days #15 tab 05/10/23 lisinopriL [Zestril] 5 mg PO DAILY #30 tab 05/10/23 Pantoprazole [Protonix] 40 mg PO DAILY #30 tab 05/12/23 Allergies Allergy/AdvReac Type Severity Reaction Status Date / Time No Known Allergies Allergy Verified 08/06/23 22:35 Review of Systems ROS Statement: Those systems with pertinent positive or pertinent negative responses have been documented in the HPI. ROS Other: All systems not noted in ROS Statement are negative. Past Medical History Past Medical History: Coronary Artery Disease (CAD), Heart Failure, COPD, Hyp erlipidemia, Sleep Apnea/CPAP/BIPAP Additional Past Medical History / Comment(s): COPD, obesity, coronary artery disease with previous bypass surgery, cataracts, hiatal hernia, obstructive sleep apnea with CPAP therapy. 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 Mother History Unknown: Yes Family Medical History: CVA/TIA Additional Family Medical History / Comment(s): at age 99 3/4 from a stoke General Exam Limitations: no limitations General appearance: alert, in no apparent distress Head exam: Present: atraumatic, normocephalic, normal inspection Respiratory exam: Present: rhonchi, decreased breath sounds, prolonged expiratory. Absent: respiratory distress, wheezes, rales, stridor Cardiovascular Exam: Present: regular rate, normal rhythm, normal heart sounds. Absent: systolic murmur, diastolic murmur, rubs, gallop, clicks Neurological exam: Present: alert, oriented X3, CN II-XII intact Psychiatric exam: Present: normal affect, normal mood Skin exam: Present: warm, dry, intact, normal color. Absent: rash Course Vital Signs 08/06/23 08/06/23 08/06/23 19:40 21:10 21:33 Temperature 97.8 F Pulse Rate 85 80 79 Respiratory 18 14 14 Rate Blood Pressure 136/68 117/55 120/59 O2 Sat by Pulse 93 L 96 94 L Oximetry Chest Pain MDM - MDM This is an 83-year-old male who presents to the emergency department for chest pain. Was pt. sent in by a medical professional or institution? @ -No Did you speak to anyone other than the patient for history? @ -No Did you review nursing and triage notes? @ -Yes, and I agree, it is accurate with regards to the patient's symptoms. Were old charts reviewed? @ -Yes, cardiovascular note from 05/12/23 indicating that the patient underwent a cardiac catheterization on 05/08 due to NSTEMI and had 2 stents placed to the SVG to OM Differential Diagnosis? @ -Differential Chest Pain: Stable Angina, Unstable Angina, STEMI, NSTEMI Aortic Dissection, Pneumothorax, Musculoskeletal, Esophageal Spasm GERD, Cholecystitis, Pancreatitis, Zoster, this is not meant to be an all-inclusive list. EKG interpreted by me (3pts min.)? @ EKG interpreted by me demonstrating the following: Sinus rhythm. Ventricular rate 82 beats per minute, [place] interval 183 ms, QRS duration 147 ms, QTC 455 ms. X-rays interpreted by me (1pt min.)? @ -Chest x-ray obtained, my interpretation identifies mild pulmonary vascular congestion. CT interpreted by me (1pt min.)? @ -Not obtained U/S interpreted by me (1pt. min.)? @ -Not obtained What testing was considered but not performed? (CT, X-rays, U/S, labs)? Why? @ -None What meds were considered but not given? Why? @ -None Did you discuss the management of the patient with other professionals? @ -Yes, Malick Ovalle with [facility] who accepts the patient for admission. Did you reconcile home meds? @ -Yes Was smoking cessation discussed for >3mins.? @ -No Was critical care preformed (if so, how long)? @ -No Were there social determinants of health that impacted care today? How? (Homelessness, low income, unemployed, alcoholism, drug addiction, transportation, low edu. Level, literacy, decrease access to med. care, long term, rehab)? @ -No Was there de-escalation of care discussed even if they declined? (Discuss DNR or withdrawal of care, Hospice)? @ -No What co-morbidities impacted this encounter? (DM, HTN, Smoking, COPD, CAD, Canc er, CVA, Hep., AIDS, mental health diagnosis, sleep apnea, morbid obesity)? @ -CAD, COPD, CHF, HLD, HELEN Was patient admitted / discharged? @ -Admitted. Lab work obtained revealing an initially indeterminate troponin of 0.028. COVID, influenza, and RSV testing were negative. Chest x-ray reveals mild pulmonary vascular congestion. BNP however is only 325. While in the emergency department, the patient's chest pain did start to return and given that he had previously vomited with oral nitroglycerin, nitro paste was applied. However, patient was taken up to the floor almost immediately afterwards and we were unable to evaluate the effectiveness of this. Patient admitted to medicine for chest pain. Serial troponins ordered. Consult placed for cardiology. Undiagnosed new problem with uncertain prognosis? @ -None Drug Therapy requiring intensive monitoring for toxicity (Heparin, Nitro, Insulin, Cardizem)? @ -None Were any procedures done? @ -None Diagnosis/symptom? @ -Chest pain Acute, or Chronic, or Acute on Chronic? @ -Acute Uncomplicated (without systemic symptoms) or Complicated (systemic symptoms)? @ -Uncomplicated Side effects of treatment? @ -None Exacerbation, Progression, or Severe Exacerbation] @ -Not applicable Poses a threat to life or bodily function? @ -Yes, risk for ACS which can lead to cardiac arrest and . This case was discussed in detail with the attending ED physician, Dr. Gibson. Presentation, findings, and treatment plan discussed in detail as well. Disposition Clinical Impression: Chest pain Disposition: ADMITTED IP TO THIS HOSP
[2023-08-06 20:05] LABS: Basophils % (A) 0 %; Eosinophils # (A) 0.2 k/uL (0-0.7); Eosinophils % (A) 3 %; HCT 37.7 % (39.0-53.0); HGB 12.7 gm/dL (13.0-17.5); Lymphocytes # (A) 1.4 k/uL (1.0-4.8); Lymphocytes % (A) 18 %; MCH 31.9 pg (25.0-35.0); MCHC 33.7 g/dL (31.0-37.0); MCV 94.4 fL (80.0-100.0); Mean Platelet Volume 10.7; Monocytes # (A) 0.6 k/uL (0-1.0); Monocytes % (A) 8 %; Neutrophils # (A) 5.3 k/uL (1.3-7.7); Neutrophils % (A) 70 %; Platelet Count 132 k/uL (150-450); RBC 3.99 m/uL (4.30-5.90); RDW 13.2 % (11.5-15.5); WBC 7.6 k/uL (3.8-10.6)
[2023-08-06 20:14] LABS: ALT 27 U/L (4-49); AST 24 U/L (17-59); African American GFR (CKD) >90 (>60 ml/min/1.73 sqM); Albumin 3.8 g/dL (3.5-5.0); Alkaline Phosphatase 104 U/L (38-126); Anion Gap 12 mmol/L; Blood Urea Nitrogen 21 mg/dL (9-20); Calcium 8.9 mg/dL (8.4-10.2); Carbon Dioxide 21 mmol/L (22-30); Chloride 104 mmol/L (98-107); Glucose 122 mg/dL (74-99); Magnesium 2.1 mg/dL (1.6-2.3); Non-African American GFR(CKD) 79 (>60 ml/min/1.73 sqM); Potassium 3.8 mmol/L (3.5-5.1); Sodium 137 mmol/L (137-145); Total Bilirubin 0.4 mg/dL (0.2-1.3); Total Protein 6.2 g/dL (6.3-8.2)
[2023-08-06 20:17] LABS: INR 0.9 (<1.2); Prothrombin Time 9.9 sec (10.0-12.5)
--- NOTE | 2023-08-06 20:18 | XR ---
EXAMINATION TYPE: XR chest 2V DATE OF EXAM: 08/06/2023 8:06 PM CLINICAL INDICATION:Male, 83 years old with history of Chest Pain; [facility] COMPARISON: Chest radiographs from 05/06/2023 TECHNIQUE: XR chest 2V Frontal and lateral views of the chest. FINDINGS: Lungs/Pleura: There is no evidence of pleural effusion, focal consolidation, or pneumothorax. Pulmonary vascularity: Unremarkable. Heart/mediastinum: Cardiomediastinal silhouette is unremarkable. Musculoskeletal: No acute osseous pathology. Midline sternotomy wires are noted. IMPRESSION: Cardiomegaly and mild pulmonary vascular congestion. Correlate with BNP for congestive heart failure.
[2023-08-06 20:23] LABS: NT-Pro-B-Type Natriuretic Pept 325 pg/mL
[2023-08-06] MEDS ORDERED: NITROGLYCERIN OINT 1 INCH/GM PACKET TOPICAL STA (20:41)
[2023-08-06] MEDS ORDERED: HYDROcodone/APAP 5-325MG 1 EACH TAB PO PRN (20:50)
[2023-08-06] MEDS ORDERED: MORPHINE SULFATE 4 MG/ML SYRINGE IV PRN (20:50)
[2023-08-06] MEDS ORDERED: NALOXONE 0.4 MG/ML 1 ML VIAL IV PRN (20:50)
[2023-08-06] MEDS ORDERED: ONDANSETRON 4 MG/2 ML VIAL IVP PRN (20:50)
[2023-08-06] MEDS ORDERED: ACETAMINOPHEN TAB 325 MG TAB PO PRN (20:50)
[2023-08-07] MEDS ORDERED: clonazePAM 0.5 MG TAB PO PRN (00:36)
[2023-08-07] MEDS ORDERED: IPRATROPIUM-ALBUTEROL 3 ML NEB INHALATION PRN (00:36)
[2023-08-07] MEDS ORDERED: ALBUTEROL NEBULIZED 2.5 MG/3 ML INHALATION PRN (00:36)
[2023-08-07] MEDS ORDERED: HEPARIN SODIUM 1,000 UN/ML (10ML VL) IV PRN (02:09)
[2023-08-07] MEDS ORDERED: HEPARIN SODIUM 1,000 UN/ML (10ML VL) IV ONE (02:09)
[2023-08-07] MEDS: HEPARIN SOD,PORK IN 0.45% NACL 25,000 UNIT in 0.45% NACL 1 250ML.BAG IV SCH (02:30)
[2023-08-07] MEDS: IPRATROPIUM-ALBUTEROL 3 ML NEB INHALATION SCH ×4 (08:31→20:04)
[2023-08-07] MEDS: SYMBICORT 80-4.5 MCG INHALER INHALATION SCH ×2 (08:31→20:04)
[2023-08-07] MEDS ORDERED: lisinopriL 5 MG TAB PO SCH (09:00)
[2023-08-07] MEDS ORDERED: LACTULOSE 20 GM/30 ML CUP PO PRN (09:00)
--- NOTE | 2023-08-07 09:55 | P.CRDCN ---
History of Present Illness History of present illness: I advised the patient to undergo cardiac catheterization he was agreeable but unfortunately he was already given his breakfast. We are going to resume the IV heparin and talked to the on-call team for the weekend to see if we can do this tomorrow patient is stable clinically chest pain-free hemodynamically stable he will continue the IV heparin he has moderate to severe aortic stenosis this needs to be further evaluated in the outpatient setting through his primary vp integration HISTORY OF PRESENT ILLNESS: This is a 83-year-old male with a past medical history significant for with coronary artery disease with previous CABG and subsequent stenting, hyperten geovani, hyperlipidemia, and COPD. Patient follows with a vp integration out of [place], Dr. Vuong. We have been asked to see the patient in consultation for as pain. Patient examined at the bedside. Patient states yesterday he began having chest discomfort in the middle of his chest. He also reports having shortness of breath. He states that he took a sublingual nitro at home and then became nauseated and had an episode of vomiting. At that time he decided to come to the emergency room for further evaluation. The patient was found to have elevated troponins and was started on IV heparin. At the time of examination, he denies any chest pain or pressure. Denies any shortness of b reath. Blood pressure is elevated this morning with a reading of 164/75. * EKG reveals sinus mechanism with right bundle branch block * Chest xray cardiomegaly with mild pulmonary vascular congestion * Laboratory data: Troponin 0.028. 0.057. 0.058. * Most recent echocardiogram obtained in April 2023 revealed ejection fraction 50-55% with moderate to severe aortic stenosis * Cardiac catheterization history: April 2023 with stenting of the SVG to OM REVIEW OF SYSTEMS: At the time of my exam: CONSTITUTIONAL: Denies fever or chills. HEENT: Denies blurred vision, vision changes, or eye pain. Denies hemoptysis CARDIOVASCULAR: Denies chest pain. Denies orthopnea. Denies PND. Denies palpitations RESPIRATORY: Denies shortness of breath. GASTROINTESTINAL: Denies abdominal pain. Denies nausea or vomiting. HEMATOLOGIC: Denies bleeding disorders. GENITOURINARY: Denies any blood in urine. SKIN: Denies pruitis. Denies rash. PHYSICAL EXAM: VITAL SIGNS: Reviewed. GENERAL: Well-developed in no acute distress. HEENT: Head is normocephalic. Pupils are equal, round. Sclerae anicteric. Mucous membranes of the mouth are moist. Neck supple. No JVD or thyromegaly LUNGS: Respirations even and unlabored. Lungs essentially clear to auscultation bilaterally. HEART: Regular rate and rhythm. S1 and S2 heard. Systolic murmur noted ABDOMEN: Soft. Nondistended. Nontender. EXTREMITIES: Normal range of motion. No clubbing or cyanosis. Peripheral pulses intact. No lower extremity edema NEUROLOGIC: Awake and alert. Oriented x 3. ASSESSMENT: Non-STEMI Coronary artery disease with previous CABG and subsequent stenting of SVG to April 2023 Moderate to severe aortic stenosis Hypertension Hyperlipidemia COPD PLAN: Obtain 2-D echo to assess cardiac structure and function Continue dual antiplatelet therapy with aspirin and Plavix Resume additional cardiac medications Increase lisinopril to 10 mg daily for optimal blood pressure control Continue IV heparin Recommend cardiac catheterization to be performed today. Patient is agreeable. Further recommendations pending patient's course Nurse practitioner note has been reviewed by physician. Signing provider agrees with the documented findings, assessment, and plan of care. Past Medical History Past Medical History: Coronary Artery Disease (CAD), Heart Failure, COPD, Hyp erlipidemia, Sleep Apnea/CPAP/BIPAP Additional Past Medical History / Comment(s): COPD, obesity, coronary artery disease with previous bypass surgery, cataracts, hiatal hernia, obstructive sleep apnea with CPAP therapy. 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 Mother History Unknown: Yes Family Medical History: CVA/TIA Additional Family Medical History / Comment(s): at age 99 3/4 from a stoke Medications and Allergies Home Medications Medication Instructions Recorded Confirmed Type Ezetimibe [Zetia] 10 mg PO DAILY 02/13/16 08/06/23 History Nitroglycerin Sl Tabs [Nitrostat] 0.4 mg SL Q5M PRN 06/22/16 08/06/23 History clonazePAM [KlonoPIN] 0.5 mg PO DAILY PRN 06/22/16 08/06/23 History Clopidogrel [Plavix] 75 mg PO HS 10/20/19 08/06/23 History Montelukast Sodium [Singulair] 10 mg PO DAILY 06/22/20 08/06/23 History DULoxetine HCL [Cymbalta] 60 mg PO DAILY 07/19/21 08/06/23 History Fluticasone/Umeclidin/Vilanter 1 puff INHALATION RT-DAILY 03/06/22 08/06/23 History [Trelelizandro Ellipta 100-62.5-25] Albuterol Inhaler [Ventolin Hfa 2 puff INHALATION RT-QID PRN 02/23/23 08/06/23 History Inhaler] Ipratropium-Albuterol Nebulize 3 ml INHALATION RT-QID PRN #20 each 02/25/23 08/06/23 Rx [Duoneb 0.5 mg-3 mg/3 ml Soln] Donepezil [Aricept] 5 mg PO HS 05/06/23 08/06/23 History predniSONE 5 mg PO DAILY 05/06/23 08/06/23 History Aspirin 81 mg PO DAILY #30 tab 05/10/23 08/06/23 Rx Atorvastatin [Lipitor] 40 mg PO DAILY #30 tab 05/10/23 08/06/23 Rx Ipratropium-Albuterol Nebulize 3 ml INHALATION RT-QID each 05/10/23 08/06/23 Rx [Duoneb 0.5 mg-3 mg/3 ml Soln] Isosorbide Mononitrate ER [Imdur] 30 mg PO DAILY #30 tab 05/10/23 08/06/23 Rx Lactulose [Cephulac] 30 gm PO TID PRN #360 ml 05/10/23 08/06/23 Rx Metoprolol Tartrate [Lopressor] 25 mg PO BID #60 tab 05/10/23 08/06/23 Rx Torsemide [Demadex] 10 mg PO DAILY 30 Days #15 tab 05/10/23 08/06/23 Rx lisinopriL [Zestril] 5 mg PO DAILY #30 tab 05/10/23 08/06/23 Rx Pantoprazole [Protonix] 40 mg PO DAILY #30 tab 05/12/23 08/06/23 Rx polyethylene glycoL 3350 [Miralax] 17 gm PO DAILY 08/06/23 08/06/23 History Allergies Allergy/AdvReac Type Severity Reaction Status Date / Time No Known Allergies Allergy Verified 08/06/23 22:35 Physical Exam Vitals: Vital Signs Temp Pulse Pulse Resp BP BP Pulse Ox 08/07/23 02:00 98.2 F 80 16 141/66 95 08/06/23 22:26 97.5 F L 83 18 158/76 96 08/06/23 21:33 79 14 120/59 94 L 08/06/23 21:10 80 14 117/55 96 08/06/23 19:40 97.8 F 85 18 136/68 93 L Intake and Output 08/06/23 08/07/23 08/07/23 22:59 06:59 14:59 Other: Voiding Method Toilet # Voids 1 1 Weight 99.79 kg Results 08/06/23 19:50 08/06/23 19:50 Cardiac Enzymes 08/06/23 08/06/23 08/07/23 Range/Units 19:50 19:50 00:22 AST 24 (17-59) U/L Troponin I 0.028 0.057 H* (0.000-0.034) ng/mL 08/07/23 Range/Units 02:32 AST (17-59) U/L Troponin I 0.058 H* (0.000-0.034) ng/mL Coagulation 08/06/23 Range/Units 19:50 PT 9.9 L (10.0-12.5) sec APTT 23.0 (22.0-30.0) sec CBC 08/06/23 Range/Units 19:50 WBC 7.6 (3.8-10.6) k/uL RBC 3.99 L (4.30-5.90) m/uL Hgb 12.7 L (13.0-17.5) gm/dL Hct 37.7 L (39.0-53.0) % Plt Count 132 L (150-450) k/uL Comprehensive Metabolic Panel 08/06/23 Range/Units 19:50 Sodium 137 (137-145) mmol/L Potassium 3.8 (3.5-5.1) mmol/L Chloride 104 (98-107) mmol/L Carbon Dioxide 21 L (22-30) mmol/L BUN 21 H (9-20) mg/dL Creatinine 0.90 (0.66-1.25) mg/dL Glucose 122 H (74-99) mg/dL Calcium 8.9 (8.4-10.2) mg/dL AST 24 (17-59) U/L ALT 27 (4-49) U/L Alkaline Phosphatase 104 (38-126) U/L Total Protein 6.2 L (6.3-8.2) g/dL Albumin 3.8 (3.5-5.0) g/dL Current Medications Generic Name Dose Route Start Last Admin Trade Name Freq PRN Reason Stop Dose Admin Acetaminophen 650 mg 08/06/23 20:50 Acetaminophen Tab 325 Mg Tab PO Q6HR PRN Mild Pain or Fever > 100.5 Hydrocodone Bitart/Acetaminophen 1 each 08/06/23 20:50 Hydrocodone/Apap 5-325mg 1 Each Tab PO Q4HR PRN Moderate Pain (Scale 4 to 6) Albuterol/Ipratropium 3 ml 08/07/23 00:36 Ipratropium-Albuterol 3 Ml Neb INHALATION RT-QID PRN Shortness Of Breath Albuterol/Ipratropium 3 ml 08/07/23 08:00 Ipratropium-Albuterol 3 Ml Neb INHALATION RT-QID ASA Aspirin 81 mg 08/07/23 09:00 Aspirin 81 Mg PO DAILY ASA Atorvastatin Calcium 40 mg 08/07/23 09:00 Atorvastatin 40 Mg Tab PO DAILY [facility] Budesonide/Formoterol Fumarate 2 puff 08/07/23 08:00 Symbicort 80-4.5 Mcg Inhaler INHALATION RT-BID ASA Clonazepam 0.5 mg 08/07/23 00:36 Clonazepam 0.5 Mg Tab PO DAILY PRN Anxiety Clopidogrel Bisulfate 75 mg 08/07/23 21:00 Clopidogrel 75 Mg Tab PO HS [facility] Donepezil HCl 5 mg 08/07/23 21:00 Donepezil 5 Mg Tab PO HS [facility] Duloxetine HCl 60 mg 08/07/23 09:00 Duloxetine Hcl 60 Mg Capsule.Dr PO DAILY [facility] Ezetimibe 10 mg 08/07/23 09:00 Ezetimibe 10 Mg Tab PO DAILY [facility] Heparin Sodium (Porcine) 0 unit 08/07/23 02:09 Heparin Sodium 1,000 Un/Ml (10ml Vl) IV PER PROTOCOL PRN Low PTT Protocol Heparin Sodium/Sodium Chloride 250 mls @ 9.999 mls/hr 08/07/23 02:30 08/07/23 02:30 25,000 unit/ Sodium Chloride IV 10.02 units/kg/hr .Q24H ASA 9.999 mls/hr Administration Protocol 10.02 UNITS/KG/HR Isosorbide Mononitrate 30 mg 08/07/23 09:00 Isosorbide Mononitrate Er 30 Mg Tab.Er.24h PO DAILY [facility] Lactulose 30 gm 08/07/23 09:00 Lactulose 20 Gm/30 Ml Cup PO TID PRN Constipation Lisinopril 5 mg 08/07/23 09:00 Lisinopril 5 Mg Tab PO DAILY [facility] Metoprolol Tartrate 25 mg 08/07/23 09:00 Metoprolol Tartrate 25 Mg Tab PO BID [facility] Montelukast Sodium 10 mg 08/07/23 09:00 Montelukast 10 Mg Tab PO DAILY [facility] Morphine Sulfate 4 mg 08/06/23 20:50 Morphine Sulfate 4 Mg/Ml Syringe IV Q4HR PRN Severe Pain (Scale 7 to 10) Naloxone HCl 0.2 mg 08/06/23 20:50 Naloxone 0.4 Mg/Ml 1 Ml Vial IV Q2M PRN Opioid Reversal Ondansetron HCl 4 mg 08/06/23 20:50 Ondansetron 4 Mg/2 Ml Vial IVP Q8HR PRN Nausea And Vomiting Pantoprazole Sodium 40 mg 08/07/23 09:00 Pantoprazole 40 Mg Tablet PO DAILY [facility] Polyethylene Glycol 17 gm 08/07/23 09:00 Polyethylene Glycol 3350 17 Gm Powd.Pack PO DAILY [facility] Prednisone 5 mg 08/07/23 09:00 Prednisone 5 Mg Tab PO DAILY [facility] Torsemide 10 mg 08/07/23 09:00 Torsemide 20 Mg Tab PO DAILY [facility] Intake and Output 08/06/23 08/07/23 08/07/23 22:59 06:59 14:59 Other: Voiding Method Toilet # Voids 1 1 Weight 99.79 kg 08/06/23 19:50 08/06/23 19:50
[2023-08-07] MEDS: EZETIMIBE 10 MG TAB PO SCH (10:13)
[2023-08-07] MEDS: ASPIRIN 81 MG PO SCH (10:13)
[2023-08-07] MEDS: TORSEMIDE 20 MG TAB PO SCH (10:13)
[2023-08-07] MEDS: predniSONE 5 MG TAB PO SCH (10:13)
[2023-08-07] MEDS: PANTOPRAZOLE 40 MG TABLET PO SCH (10:13)
[2023-08-07] MEDS: ISOSORBIDE MONONITRATE ER 30 MG TAB.ER.24H PO SCH (10:14)
[2023-08-07] MEDS: ATORVASTATIN 40 MG TAB PO SCH (10:14)
[2023-08-07] MEDS: METOPROLOL TARTRATE 25 MG TAB PO SCH ×2 (10:14→20:59)
[2023-08-07] MEDS: DULoxetine HCL 60 MG CAPSULE.DR PO SCH (10:14)
[2023-08-07] MEDS: MONTELUKAST 10 MG TAB PO SCH (10:14)
[2023-08-07] MEDS: polyethylene glycoL 3350 17 GM POWD.PACK PO SCH (10:21)
--- NOTE | 2023-08-07 12:41 | CA ---
Transthoracic Echo Report Name: Demetrio Cordero Age: 83 Gender: M : 1940 Exam Date: 08/07/2023 09:21 Exam Location: [place] [facility] Ht (in): 68 Wt (lb): 220 Ordering Physician: Deanna Bianchi Attending/Referring Phys: [id number], [employer] Administrator Jamia Delong RDCS Procedure CPT: Indications: LV function, CP, NSTEMI Cardiac Hx: Technical Quality: Fair Contrast 1: Total Dose (mL): Contrast 2: Total Dose (mL): MEASUREMENTS (Male / Female) Normal Values 2D ECHO LV Diastolic Diameter PLAX 5.1 cm 4.2 - 5.9 / 3.9 - 5.3 cm LV Systolic Diameter PLAX 2.9 cm IVS Diastolic Thickness 1.7 cm 0.6 - 1.0 / 0.6 - 0.9 cm LVPW Diastolic Thickness 1.8 cm 0.6 - 1.0 / 0.6 - 0.9 cm LV Relative Wall Thickness 0.7 RV Internal Dim ED PLAX 3.9 cm LVOT Diameter 1.7 cm LA Volume 67.1 cm??? 18 - 58 / 22 - 52 cm??? LA Volume Index 30.2 cm???/m??? 16 - 28 cm???/m??? DOPPLER AV Peak Velocity 386.9 cm/s AV Peak Gradient 59.9 mmHg AV Mean Velocity 288.1 cm/s AV Mean Gradient 37.0 mmHg AV Velocity Time Integral 85.1 cm LVOT Peak Velocity 83.3 cm/s LVOT Peak Gradient 2.8 mmHg LVOT Velocity Time Integral 20.7 cm LVOT Stroke Volume 47.6 cm??? LVOT Stroke Volume Index 22.3 ml/m??? LVOT Cardiac Index 1797.2 cm???/min???m??? AV Area Cont Eq vti 0.6 cm??? AV Area Cont Eq pk 0.5 cm??? MV Area PHT 7.1 cm??? Mitral E Point Velocity 104.9 cm/s Mitral A Point Velocity 118.6 cm/s Mitral E to A Ratio 0.9 MV Deceleration Time 107.1 ms MV E' Velocity 4.4 cm/s Mitral E to MV E' Ratio 23.7 TR Peak Velocity 183.7 cm/s TR Peak Gradient 13.5 mmHg Right Ventricular Systolic Press 18.5 mmHg FINDINGS Left Ventricle Moderately increased left ventricular wall thickness. Left ventricular cavity size normal. Preserved left ventricular systolic function with no obvious regional wall motion abnormalities. Left ventricular ejection fraction is estimated at 50-55 %. Right Ventricle Right ventricular dilatation. Right ventricular systolic pressure within normal limits. Right Atrium Right atrium not well visualized. Left Atrium Mildly increased left atrial volume. Mildly increased left atrial area. Mitral Valve Structurally normal mitral valve. Mitral valve thickened. Mild mitral annular calcification. [id number] mitral regurgitation. Aortic Valve No aortic regurgitation. [id number] aortic stenosis with a peak gradient of 60 mmHg and a mean gradient of 37 mmHg. Tricuspid Valve Structurally normal tricuspid valve. Mild tricuspid regurgitation. Pulmonic Valve Structurally normal pulmonic valve. Pericardium No pericardial effusion. Aorta Normal size aortic root and proximal ascending aorta. CONCLUSIONS Normal LV function Mild to moderate mitral regurgitation Moderate to severe aortic stenosis with a peak gradient of 50 mm and a mean gradient of 37 mm across the valve Previewed by: Dr. Tee Foss MD (Electronically Signed) Final Date: 07 August 2023 12:40
[2023-08-07] MEDS ORDERED: ALPRAZolam 0.25 MG TAB PO PRN (13:30)
[2023-08-07] MEDS ORDERED: ALPRAZolam 0.5 MG TAB PO PRN (13:30)
[2023-08-07] MEDS ORDERED: NITROGLYCERIN SL TABS 0.4 MG TAB SUBLINGUAL PRN (13:30)
--- NOTE | 2023-08-07 15:22 | P.HPIM ---
History of Present Illness H&P Date: 08/07/23 This is an 83 year old male with medical history of coronary artery disease history of cabg, heart failure, COPD, hyperlipidemia, sleep apnea, COPD with CPAP use. Patient was admitted back in April he underwent 2 stents. He states yesterday afternoon he was sitting in the chair watching tv had an episode of heartburn midsternal no radiation no shortness of breath. He states he took a nitroglycerin and began dry heaving. He came in for evaluation. He usually follows with Dr Ayush andrade in [facility]. Chest xray shows cardiomegaly and mild pulmonary vascular congestion. Correlate with BNP for congestive heart failure. Initial blood work reveals hemoglobin 12.7, sodium 137, potassium 3.8, BUN 21, creatinine 0.90, glucose 122, troponin 0.028, 0.057, and 0.058. Covid, influenza and RSV negative. There is concern for acute nstemi, patient was admitted to the hospital under medicine with consult placed to cardiology. REVIEW OF SYSTEMS: CONSTITUTIONAL: No fever, no malaise, no fatigue. HEENT: No recent visual problems or hearing problems. Denied any sore throat. CARDIOVASCULAR: No chest pain, orthopnea, PND, no palpitations, no syncope. PULMONARY: No shortness of breath, no cough, no hemoptysis. GASTROINTESTINAL: No diarrhea, no nausea, no vomiting, no abdominal pain. NEUROLOGICAL: No headaches, no weakness, no numbness. HEMATOLOGICAL: Denies any bleeding or petechiae. GENITOURINARY: Denies any burning micturition, frequency, or urgency. MUSCULOSKELETAL/RHEUMATOLOGICAL: Denies any joint pain, swelling, or any muscle pain. ENDOCRINE: Denies any polyuria or polydipsia. The rest of the 14-point review of systems is negative. PHYSICAL EXAMINATION: GENERAL: The patient is alert and oriented x3, not in any acute distress. Well developed, well nourished. HEENT: Pupils are round and equally reacting to light. EOMI. No scleral icterus. No conjunctival pallor. Normocephalic, atraumatic. No pharyngeal erythema. No thyromegaly. CARDIOVASCULAR: S1 and S2 present. No murmurs, rubs, or gallops. Patient has systolic murmur PULMONARY: Chest is clear to auscultation, no wheezing or crackles. ABDOMEN: Soft, nontender, nondistended, normoactive bowel sounds. No palpable organomegaly. MUSCULOSKELETAL: No joint swelling or deformity. EXTREMITIES: No cyanosis, clubbing, or pedal edema. NEUROLOGICAL: Gross neurological examination did not reveal any focal deficits. SKIN: No rashes. Assessment Acute non-stemi with troponin elevation with upwards trend Hx of coronary artery disease with CABG and stent x 2 in April of 2023 Hypertension Hx of aortic stenosis; moderate to severe Hyperlipidemia Hx of COPD with no acute exacerbation Hx of sleep apnea with CPAP use History of heart failure Former smoker GI prophylaxis DVT prophylaxis Full Code Plan Continue on IV heparin Patient will be NPO after midnight and will undergo cardiac catheterization to [place] Echocardiogram ordered and pending Continue dual antiplatelet therapy Home medications have been resumed Lisinopril has been increased by cardiology for improved BP control; most recent documented at 104 systolic. Repeat labs in AM Plan of care was discussed with pts tu over the phone and all questions answered. The impression and plan of care has been dictated by Karolina Joseph Nurse Practitioner as directed. Dr. Pia MD I have performed a history and physical examination and medical decision making of this patient, discussed the same with the dictator, and agree with the dictators assessment and plan as written, documented as a scribe. Based on total visit time, I have performed more than 50% of this visit. Past Medical History Past Medical History: Coronary Artery Disease (CAD), Heart Failure, COPD, Hyperlipidemia, Sleep Apnea/CPAP/BIPAP Additional Past Medical History / Comment(s): COPD, obesity, coronary artery disease with previous bypass surgery, cataracts, hiatal hernia, obstructive sleep apnea with CPAP therapy. 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 Mother History Unknown: Yes Family Medical History: CVA/TIA Additional Family Medical History / Comment(s): at age 99 3/4 from a stoke Medications and Allergies Home Medications Medication Instructions Recorded Confirmed Type Ezetimibe [Zetia] 10 mg PO DAILY 02/13/16 08/06/23 History Nitroglycerin Sl Tabs [Nitrostat] 0.4 mg SL Q5M PRN 06/22/16 08/06/23 History clonazePAM [KlonoPIN] 0.5 mg PO DAILY PRN 06/22/16 08/06/23 History Clopidogrel [Plavix] 75 mg PO HS 10/20/19 08/06/23 History Montelukast Sodium [Singulair] 10 mg PO DAILY 06/22/20 08/06/23 History DULoxetine HCL [Cymbalta] 60 mg PO DAILY 07/19/21 08/06/23 History Fluticasone/Umeclidin/Vilanter 1 puff INHALATION RT-DAILY 03/06/22 08/06/23 History [Trelegy Ellipta 100-62.5-25] Albuterol Inhaler [Ventolin Hfa 2 puff INHALATION RT-QID PRN 02/23/23 08/06/23 History Inhaler] Ipratropium-Albuterol Nebulize 3 ml INHALATION RT-QID PRN #20 each 02/25/23 08/06/23 Rx [Duoneb 0.5 mg-3 mg/3 ml Soln] Donepezil [Aricept] 5 mg PO HS 05/06/23 08/06/23 History predniSONE 5 mg PO DAILY 05/06/23 08/06/23 History Aspirin 81 mg PO DAILY #30 tab 05/10/23 08/06/23 Rx Atorvastatin [Lipitor] 40 mg PO DAILY #30 tab 05/10/23 08/06/23 Rx Ipratropium-Albuterol Nebulize 3 ml INHALATION RT-QID each 05/10/23 08/06/23 Rx [Duoneb 0.5 mg-3 mg/3 ml Soln] Isosorbide Mononitrate ER [Imdur] 30 mg PO DAILY #30 tab 05/10/23 08/06/23 Rx Lactulose [Cephulac] 30 gm PO TID PRN #360 ml 05/10/23 08/06/23 Rx Metoprolol Tartrate [Lopressor] 25 mg PO BID #60 tab 05/10/23 08/06/23 Rx Torsemide [Demadex] 10 mg PO DAILY 30 Days #15 tab 05/10/23 08/06/23 Rx lisinopriL [Zestril] 5 mg PO DAILY #30 tab 05/10/23 08/06/23 Rx Pantoprazole [Protonix] 40 mg PO DAILY #30 tab 05/12/23 08/06/23 Rx polyethylene glycoL 3350 [Miralax] 17 gm PO DAILY 08/06/23 08/06/23 History Allergies Allergy/AdvReac Type Severity Reaction Status Date / Time No Known Allergies Allergy Verified 08/06/23 22:35 Physical Exam Vitals: Vital Signs Temp Pulse Pulse Resp BP BP Pulse Ox 08/07/23 08:43 76 08/07/23 08:33 75 08/07/23 07:00 97.9 F 77 18 164/75 98 08/07/23 02:00 98.2 F 80 16 141/66 95 08/06/23 22:26 97.5 F L 83 18 158/76 96 08/06/23 21:33 79 14 120/59 94 L 08/06/23 21:10 80 14 117/55 96 08/06/23 19:40 97.8 F 85 18 136/68 93 L Intake and Output 08/06/23 08/07/23 08/07/23 22:59 06:59 14:59 Other: Voiding Method Toilet # Voids 1 1 0 Weight 99.79 kg Results CBC & Chem 7: 08/06/23 19:50 08/06/23 19:50 Labs: Abnormal Lab Results - Last 24 Hours (Table) 08/06/23 08/06/23 08/06/23 Range/Units 19:50 19:50 19:50 RBC 3.99 L (4.30-5.90) m/uL Hgb 12.7 L (13.0-17.5) gm/dL Hct 37.7 L (39.0-53.0) % Plt Count 132 L (150-450) k/uL PT 9.9 L (10.0-12.5) sec APTT (22.0-30.0) sec Carbon Dioxide 21 L (22-30) mmol/L BUN 21 H (9-20) mg/dL Glucose 122 H (74-99) mg/dL Troponin I (0.000-0.034) ng/mL Total Protein 6.2 L (6.3-8.2) g/dL 08/07/23 08/07/23 08/07/23 Range/Units 00:22 02:32 09:00 RBC (4.30-5.90) m/uL Hgb (13.0-17.5) gm/dL Hct (39.0-53.0) % Plt Count (150-450) k/uL PT (10.0-12.5) sec APTT 45.0 H (22.0-30.0) sec Carbon Dioxide (22-30) mmol/L BUN (9-20) mg/dL Glucose (74-99) mg/dL Troponin I 0.057 H* 0.058 H* (0.000-0.034) ng/mL Total Protein (6.3-8.2) g/dL Thrombosis Risk Factor Assmnt - Choose All That Apply Any of the Below Risk Factors Present?: Yes Each Factor Represents 1 point: Abnormal pulmonary function (COPD), Obesity (BMI >25) Each Risk Factor Represents 3 Points: Age 75 years or older Thrombosis Risk Factor Assessment Total Risk Factor Score: 5 Thrombosis Risk Factor Assessment Level: High Risk Assessment and Plan Time with Patient: Less than 30
[2023-08-07] MEDS: DONEPEZIL 5 MG TAB PO SCH (20:59)
[2023-08-07] MEDS: CLOPIDOGREL 75 MG TAB PO SCH (20:59)
[2023-08-08] MEDS: HEPARIN SOD,PORK IN 0.45% NACL 25,000 UNIT in 0.45% NACL 1 250ML.BAG IV SCH (03:57)
[2023-08-08] MEDS ORDERED: ATORVASTATIN 80 MG TAB PO ONE (05:00)
[2023-08-08] MEDS ORDERED: ASPIRIN 325 MG TAB PO ONE (05:00)
[2023-08-08] MEDS ORDERED: HEPARIN SODIUM,PORCINE 10,000 UNIT in SODIUM CHLORIDE 0.9% 1,000 ML IRRIGATION PRN (07:00)
[2023-08-08] MEDS ORDERED: HEPARIN SODIUM,PORCINE (1 ML) 2,500 UNIT in SODIUM CHLORIDE 0.9% 250 ML IRRIGATION PRN (07:00)
[2023-08-08] MEDS: IPRATROPIUM-ALBUTEROL 3 ML NEB INHALATION SCH ×4 (09:04→20:57)
[2023-08-08] MEDS: SYMBICORT 80-4.5 MCG INHALER INHALATION SCH ×2 (09:04→20:57)
[2023-08-08] MEDS: ASPIRIN 81 MG PO SCH (09:17)
[2023-08-08] MEDS: polyethylene glycoL 3350 17 GM POWD.PACK PO SCH (09:17)
[2023-08-08] MEDS: DULoxetine HCL 60 MG CAPSULE.DR PO SCH (09:17)
[2023-08-08] MEDS: MONTELUKAST 10 MG TAB PO SCH (09:17)
[2023-08-08] MEDS: EZETIMIBE 10 MG TAB PO SCH (09:17)
[2023-08-08] MEDS: PANTOPRAZOLE 40 MG TABLET PO SCH (09:17)
[2023-08-08] MEDS: ATORVASTATIN 40 MG TAB PO SCH (09:17)
[2023-08-08] MEDS: lisinopriL 10 MG TAB PO SCH (09:17)
[2023-08-08] MEDS: METOPROLOL TARTRATE 25 MG TAB PO SCH ×2 (09:17→19:11)
[2023-08-08] MEDS: ISOSORBIDE MONONITRATE ER 30 MG TAB.ER.24H PO SCH (09:17)
[2023-08-08] MEDS: predniSONE 5 MG TAB PO SCH (09:18)
[2023-08-08] MEDS: TORSEMIDE 20 MG TAB PO SCH (09:18)
[2023-08-08 09:39] LABS: Basophils % (A) 0 %; Eosinophils # (A) 0.3 k/uL (0-0.7); Eosinophils % (A) 4 %; HGB 13.1 gm/dL (13.0-17.5); Lymphocytes # (A) 1.6 k/uL (1.0-4.8); Lymphocytes % (A) 25 %; MCH 31.3 pg (25.0-35.0); MCHC 32.6 g/dL (31.0-37.0); MCV 95.8 fL (80.0-100.0); Mean Platelet Volume 10.6; Monocytes # (A) 0.4 k/uL (0-1.0); Monocytes % (A) 6 %; Neutrophils % (A) 62 %; Platelet Count 131 k/uL (150-450); RBC 4.18 m/uL (4.30-5.90); RDW 13.3 % (11.5-15.5); WBC 6.5 k/uL (3.8-10.6)
[2023-08-08 09:46] LABS: Partial Thromboplastin Time 54.5 sec (22.0-30.0); Prothrombin Time 10.5 sec (10.0-12.5)
--- NOTE | 2023-08-08 10:13 | P.PN ---
Subjective Progress Note Date: 08/08/23 Principal diagnosis: Acute coronary syndrome The patient is a pleasant 83-year-old gentleman with a past medical history significant for coronary artery disease status post CABG and recently stenting of the SVG to OM as well as hypertension and dyslipidemia and COPD aortic steno sis was admitted to the hospital with a chest discomfort and was ruled in for acute coronary August [id number] He was seen and evaluated this morning. Currently he is asymptomatic. The echo showed preserved LV systolic function was moderate aortic stenosis. The plan is to pursue coronary angiogram later on today. The examination is remarkable for systolic murmur at the right upper sternal border was decreased the intensity of S2 Assessment Acute non-ST patient myocardial infarction CAD as described above Operable comorbid conditions including hypertension and dyslipidemia and COPD Plan Proceed with coronary angiogram Follow-up with the patient Objective - Vital Signs Vital signs: Vital Signs Temp 98.2 F 08/08/23 03:33 Pulse 72 08/08/23 09:22 Resp 16 08/08/23 09:07 BP 114/58 08/08/23 09:07 Pulse Ox 97 08/08/23 09:07 FiO2 21 08/08/23 03:28 Intake & Output 08/07/23 08/08/23 08/08/23 18:59 06:59 18:59 Intake Total 625.652 360 360 Output Total 400 Balance 625.652 -40 360 Intake: Intake, IV Titration 145.652 Amount Heparin Sod,Pork in 0.45% 145.652 NaCl 25,000 unit In 0.45 % NaCl 1 250ml.bag @ 10. 02 UNITS/KG/HR 9.999 mls/ hr IV .Q24H [facility] Rx#: [id number] Oral 480 360 360 Output: Urine 400 Other: Voiding Method Toilet Toilet # Voids 1 - Labs CBC & Chem 7: 08/08/23 09:13 08/06/23 19:50 Labs: Abnormal Lab Results - Last 24 Hours (Table) 08/08/23 08/08/23 Range/Units 09:13 09:13 RBC 4.18 L (4.30-5.90) m/uL Plt Count 131 L (150-450) k/uL APTT 54.5 H (22.0-30.0) sec
[2023-08-08] MEDS: SODIUM CHLORIDE 0.9% 1,000 ML in EMPTY BAG 1 BAG IV SCH ×2 (12:40→12:41)
--- NOTE | 2023-08-08 12:50 | P.PN ---
Subjective Progress Note Date: 08/08/23 This is an 83 year old male with medical history of coronary artery disease history of cabg, heart failure, COPD, hyperlipidemia, sleep apnea, COPD with CPAP use. Patient was admitted back in April he underwent 2 stents. He states yesterday afternoon he was sitting in the chair watching tv had an episode of heartburn midsternal no radiation no shortness of breath. He states he took a nitroglycerin and began dry heaving. He came in for evaluation. He usually follows with Dr Ayush andrade in [facility]. Chest xray shows cardiomegaly and mild pulmonary vascular congestion. Correlate with BNP for congestive heart failure. Initial blood work reveals hemoglobin 12.7, sodium 137, potassium 3.8, BUN 21, creatinine 0.90, glucose 122, troponin 0.028, 0.057, and 0.058. Covid, influenza and RSV negative. There is concern for acute nstemi, patient was admitted to the hospital under medicine with consult placed to cardiology. 08/08/2023 Patient is pending cardiac cathteterization. Echocardiogram was done revealing normal LV function, mild to moderate MR, moderate to severe aortic stenosis. REVIEW OF SYSTEMS: CONSTITUTIONAL: No fever, no malaise, no fatigue. HEENT: No recent visual problems or hearing problems. Denied any sore throat. CARDIOVASCULAR: No chest pain, orthopnea, PND, no palpitations, no syncope. PULMONARY: No shortness of breath, no cough, no hemoptysis. GASTROINTESTINAL: No diarrhea, no nausea, no vomiting, no abdominal pain. NEUROLOGICAL: No headaches, no weakness, no numbness. PHYSICAL EXAMINATION: GENERAL: The patient is alert and oriented x3, not in any acute distress. Well developed, well nourished. HEENT: Pupils are round and equally reacting to light. EOMI. No scleral icterus. No conjunctival pallor. Normocephalic, atraumatic. No pharyngeal erythema. No thyromegaly. CARDIOVASCULAR: S1 and S2 present. No murmurs, rubs, or gallops. Patient has systolic murmur PULMONARY: Chest is clear to auscultation, no wheezing or crackles. ABDOMEN: Soft, nontender, nondistended, normoactive bowel sounds. No palpable organomegaly. MUSCULOSKELETAL: No joint swelling or deformity. EXTREMITIES: No cyanosis, clubbing, or pedal edema. NEUROLOGICAL: Gross neurological examination did not reveal any focal deficits. SKIN: No rashes. Assessment Acute non-stemi with troponin elevation with upwards trend Hx of coronary artery disease with CABG and stent x 2 in April of 2023 Hypertension Hx of aortic stenosis; moderate to severe Hyperlipidemia Hx of COPD with no acute exacerbation Hx of sleep apnea with CPAP use History of heart failure Former smoker GI prophylaxis DVT prophylaxis Full Code Plan Continue on IV heparin Pending cardiac catheterization Continue dual antiplatelet therapy Home medications have been resumed Lisinopril has been increased by cardiology for improved BP control; most recent documented at 104 systolic. Repeat labs in AM The impression and plan of care has been dictated by Karolina Joseph Nurse Practitioner as directed. Dr. Promise MD I have performed a history and physical examination and medical decision making of this patient, discussed the same with the dictator, and agree with the dict ators assessment and plan as written, documented as a scribe. Based on total visit time, I have performed more than 100% of this visit. Objective - Vital Signs Vital signs: Vital Signs Temp 98.2 F 08/08/23 03:33 Pulse 72 08/08/23 09:22 Resp 16 08/08/23 09:07 BP 114/58 08/08/23 09:07 Pulse Ox 97 08/08/23 09:07 FiO2 21 08/08/23 03:28 Intake & Output 08/07/23 08/08/23 08/08/23 18:59 06:59 18:59 Intake Total 625.652 360 360 Output Total 400 Balance 625.652 -40 360 Intake: Intake, IV Titration 145.652 Amount Heparin Sod,Pork in 0.45% 145.652 NaCl 25,000 unit In 0.45 % NaCl 1 250ml.bag @ 10. 02 UNITS/KG/HR 9.999 mls/ hr IV .Q24H [facility] Rx#: [id number] Oral 480 360 360 Output: Urine 400 Other: Voiding Method Toilet Toilet # Voids 1 - Labs CBC & Chem 7: 08/08/23 09:13 08/06/23 19:50 Labs: Abnormal Lab Results - Last 24 Hours (Table) 08/08/23 08/08/23 Range/Units 09:13 09:13 RBC 4.18 L (4.30-5.90) m/uL Plt Count 131 L (150-450) k/uL APTT 54.5 H (22.0-30.0) sec Assessment and Plan Time with Patient: Less than 30
[2023-08-08] MEDS ORDERED: IV FLUID CONTINUATION 1,000 ML IV ONE (14:06)
[2023-08-08] MEDS ORDERED: MIDAZOLAM 2 MG/2 ML VIAL IVP ONE (14:32)
[2023-08-08] MEDS ORDERED: LIDOCAINE 1% INJ 10MG/ML (30 ML VIAL-PF) SQ ONE (14:37)
[2023-08-08] MEDS ORDERED: IOPAMIDOL-370 100ML BTL INJ ONE ×2 (14:59)
[2023-08-08] MEDS ORDERED: RX INFO: IV CONTRAST WAS GIVEN 1 EACH MISC MISCELLANE PRN (15:02)
--- NOTE | 2023-08-08 15:06 | P.PCN ---
Date of Procedure: 08/08/23 Operative Findings: CARDIAC CATHETERIZATION PERFORMING PHYSICIAN: Gorge Bui MD, RPVI PROCEDURE PERFORMED: 1. Selective right and left coronary angiogram 2. HERNANDEZ to LAD angiogram and SVG to LCx angiogram 3. Ultrasound-guided access of the right common femoral artery 4. Selective right common femoral artery and INDICATION: Acute coronary syndrome COMPLICATION: None APPROACH: Right common femoral artery LEVEL OF SEDATION: Moderate with sedation in length of 20 minutes PROCEDURE DESCRIPTION: After obtaining an informed consent, the patient was brought to cardiac chemistry lab instructor. Local anesthesia was performed using lidocaine subcutaneously. The right common femoral artery was cannulated using Seldinger technique, the guidewire passed easily, following that we advanced a 6 Italian sheath dilator assembly, the wire and dilator were removed and sheath was flushed. The HERNANDEZ to LAD angiogram and SVG to LCx angiogram performed using JR4 catheter Finally selective right common femoral artery angiogram was brought The procedure was completed there was no complication. SELECTIVE CORONARY ANGIOGRAM: The right coronary artery: Large caliber vessel and a dominant vessel. The RCA has mild to moderate disease. The RCA is calcified Left main: Is occluded The left circumflex: The LCx proximally is occluded. The left anterior descending artery: The LAD proximally is occluded Coronary bypasses angiogram The HERNANDEZ to LAD is patent The SVG to OM is patent] CONCLUSION: 1. Severe coronary artery disease as described above 2. Patent HERNANDEZ to LAD and patent SVG to all [place] 3. Mild to moderate nonobstructive disease involving the RCA POSTPROCEDURE MANAGEMENT: Medical treatment
[2023-08-08] MEDS ORDERED: SODIUM CHLORIDE 0.9% 1,000 ML IV SCH (15:15)
[2023-08-08] MEDS: DONEPEZIL 5 MG TAB PO SCH (19:11)
[2023-08-08] MEDS: CLOPIDOGREL 75 MG TAB PO SCH (19:11)
[2023-08-09] MEDS: HEPARIN SOD,PORK IN 0.45% NACL 25,000 UNIT in 0.45% NACL 1 250ML.BAG IV SCH (01:37)
[2023-08-09] MEDS: SYMBICORT 80-4.5 MCG INHALER INHALATION SCH (08:24)
[2023-08-09] MEDS: IPRATROPIUM-ALBUTEROL 3 ML NEB INHALATION SCH ×2 (08:24→11:56)
[2023-08-09] MEDS: ISOSORBIDE MONONITRATE ER 30 MG TAB.ER.24H PO SCH (08:41)
[2023-08-09] MEDS: PANTOPRAZOLE 40 MG TABLET PO SCH (08:41)
[2023-08-09] MEDS: DULoxetine HCL 60 MG CAPSULE.DR PO SCH (08:41)
[2023-08-09] MEDS: ASPIRIN 81 MG PO SCH (08:41)
[2023-08-09] MEDS: MONTELUKAST 10 MG TAB PO SCH (08:41)
[2023-08-09] MEDS: ATORVASTATIN 40 MG TAB PO SCH (08:41)
[2023-08-09] MEDS: METOPROLOL TARTRATE 25 MG TAB PO SCH (08:41)
[2023-08-09] MEDS: polyethylene glycoL 3350 17 GM POWD.PACK PO SCH (08:42)
[2023-08-09] MEDS: EZETIMIBE 10 MG TAB PO SCH (08:42)
[2023-08-09] MEDS: predniSONE 5 MG TAB PO SCH (08:42)
[2023-08-09] MEDS: TORSEMIDE 20 MG TAB PO SCH (08:42)
[2023-08-09] MEDS: lisinopriL 10 MG TAB PO SCH (08:42)
[2023-08-09 09:43] VITALS: RESP 20
--- NOTE | 2023-08-09 10:03 | P.PN ---
Subjective Progress Note Date: 08/09/23 Principal diagnosis: Acute coronary syndrome The patient is a pleasant 83-year-old gentleman with a past medical history significant for coronary artery disease status post CABG and recently stenting of the SVG to OM as well as hypertension and dyslipidemia and COPD aortic steno sis was admitted to the hospital with a chest discomfort and was ruled in for acute coronary August [id number] He was seen and evaluated this morning. Currently he is asymptomatic. The echo showed preserved LV systolic function was moderate aortic stenosis. The plan is to pursue coronary angiogram later on today. The examination is remarkable for systolic murmur at the right upper sternal border was decreased the intensity of S2 08/09/2023 The patient was seen and evaluated this morning. He underwent heart catheterization yesterday which did not show any changes compared to before and no revascularization was needed. From the cardiac standpoint of view, he is asymptomatic and his hemodynamic stable and he would like to go home. The examination is remarkable for soft nontender right groin. The patient can be discharged home. Assessment Acute non-ST patient myocardial infarction CAD as described above Operable comorbid conditions including hypertension and dyslipidemia and COPD Plan The patient can be discharged Objective - Vital Signs Vital signs: Vital Signs Temp 97.7 F 08/09/23 08:00 Pulse 68 08/09/23 08:39 Resp 20 08/09/23 08:00 BP 111/64 08/09/23 08:00 Pulse Ox 96 08/09/23 08:25 FiO2 21 08/09/23 03:20 Intake & Output 08/08/23 08/09/23 08/09/23 18:59 06:59 18:59 Intake Total 628 240 480 Output Total 400 Balance 628 -160 480 Intake: IV 150 Oral 478 240 480 Output: Urine 400 Other: Voiding Method Toilet # Voids 1 1 - Labs CBC & Chem 7: 08/08/23 09:13 08/06/23 19:50
[2023-08-09 11:54] VITALS: TEMP 97.5
--- NOTE | 2023-08-09 12:19 | P.DS ---
Providers Date of admission: 08/07/23 11:32 Expected date of discharge: 08/09/23 Attending physician: Mey Alaniz Consults: 08/06/23 20:50 Consult Physician Urgent Consulting Provider: Fuentes Wong Consult Reason/Comments: Chest pain Do you want consulting provider notified?: Yes Primary care physician: Doretha [facility] Course: * 83 year old male with medical history of coronary artery disease history of cabg, heart failure, COPD, hyperlipidemia, sleep apnea, COPD with CPAP use. Patient was admitted back in April he underwent 2 stents. He states yesterday afternoon he was sitting in the chair watching tv had an episode of heartburn midsternal no radiation no shortness of breath. He states he took a nitroglycerin and began dry heaving. He came in for evaluation. He usually follows with Dr Ayush andrade in [facility]. Chest xray shows cardiomegaly and mild pulmonary vascular congestion. Correlate with BNP for congestive heart failure. Initial blood work reveals hemoglobin 12.7, sodium 137, potassium 3.8, BUN 21, creatinine 0.90, glucose 122, troponin 0.028, 0.057, and 0.058. Covid, influenza and RSV negative. There is concern for acute nstemi, patient was admitted to the hospital under medicine with consult placed to cardiology. 08/08/2023 Patient is pending cardiac cathteterization. Echocardiogram was done revealing normal LV function, mild to moderate MR, moderate to severe aortic stenosis. 08/09/2023: Patient seen and evaluated after cardiac catheterization, patient was cleared by cardiology for discharge, blood pressure was monitored patient remained asymptomatic upon discharge does of lisinopril was left at 5 mg due to concern for symptomatic hypotension. Patient was ambulated in the hallway remained asymptomatic home medications reviewed and reconciled patient discharge on same regimen PHYSICAL EXAMINATION: GENERAL: The patient is alert and oriented x3, not in any acute distress. Well developed, well nourished. HEENT: Pupils are round and equally reacting to light. EOMI. CARDIOVASCULAR: S1 and S2 present. No murmurs, rubs, or gallops. Patient has systolic murmur PULMONARY: Chest is clear to auscultation, no wheezing or crackles. ABDOMEN: Soft, nontender, nondistended, normoactive bowel sounds. No palpable organomegaly. MUSCULOSKELETAL: No joint swelling or deformity. EXTREMITIES: No cyanosis, clubbing, or pedal edema. NEUROLOGICAL: Gross neurological examination did not reveal any focal deficits. SKIN: No rashes. Assessment Acute non-stemi with troponin elevation with upwards trend Hx of coronary artery disease with CABG and stent x 2 in April of 2023 Hypertension Hx of aortic stenosis; moderate to severe Hyperlipidemia Hx of COPD with no acute exacerbation Hx of sleep apnea with CPAP use History of heart failure Former smoker Plan post cardiac catheterization, patient was started on IV heparin during inpatient which was weaned off. Continue patient on cardiac diet and medical therapy on aspirin, Plavix, Lipitor lisinopril In regards to hypertension continue patient on lisinopril monitor for hypotension, patient on metoprolol as well In regards to hyperlipidemia continue Lipitor Outpatient follow-up with cardiology recommended She'll follow-up with PCP post discharge Patient Condition at Discharge: Fair Plan - Discharge Summary New Discharge Prescriptions: Continue Ezetimibe [Zetia] 10 mg PO DAILY clonazePAM [KlonoPIN] 0.5 mg PO DAILY PRN PRN Reason: Anxiety Nitroglycerin Sl Tabs [Nitrostat] 0.4 mg SL Q5M PRN PRN Reason: Chest Pain Clopidogrel [Plavix] 75 mg PO HS Montelukast Sodium [Singulair] 10 mg PO DAILY DULoxetine HCL [Cymbalta] 60 mg PO DAILY Fluticasone/Umeclidin/Vilanter [Trelegy Ellipta 100-62.5-25] 1 puff INHALATION RT-DAILY Albuterol Inhaler [Ventolin Hfa Inhaler] 2 puff INHALATION RT-QID PRN PRN Reason: Shortness Of Breath Ipratropium-Albuterol Nebulize [Duoneb 0.5 mg-3 mg/3 ml Soln] 3 ml INHALATION RT-QID PRN #20 each PRN Reason: Shortness Of Breath Aspirin 81 mg PO DAILY #30 tab Lactulose [Cephulac] 30 gm PO TID PRN #360 ml PRN Reason: Constipation Torsemide [Demadex] 10 mg PO DAILY 30 Days #15 tab Ipratropium-Albuterol Nebulize [Duoneb 0.5 mg-3 mg/3 ml Soln] 3 ml INHALATION RT-QID each Isosorbide Mononitrate ER [Imdur] 30 mg PO DAILY #30 tab Metoprolol Tartrate [Lopressor] 25 mg PO BID #60 tab lisinopriL [Zestril] 5 mg PO DAILY #30 tab polyethylene glycoL 3350 [Miralax] 17 gm PO DAILY Donepezil [Aricept] 5 mg PO HS predniSONE 5 mg PO DAILY Atorvastatin [Lipitor] 40 mg PO DAILY #30 tab Pantoprazole [Protonix] 40 mg PO DAILY #30 tab Discharge Medication List Ezetimibe [Zetia] 10 mg PO DAILY 02/13/16 [History] Nitroglycerin Sl Tabs [Nitrostat] 0.4 mg SL Q5M PRN 06/22/16 [History] clonazePAM [KlonoPIN] 0.5 mg PO DAILY PRN 06/22/16 [History] Clopidogrel [Plavix] 75 mg PO HS 10/20/19 [History] Montelukast Sodium [Singulair] 10 mg PO DAILY 06/22/20 [History] DULoxetine HCL [Cymbalta] 60 mg PO DAILY 07/19/21 [History] Fluticasone/Umeclidin/Vilanter [Trelegy Ellipta 100-62.5-25] 1 puff INHALATION RT-DAILY 03/06/22 [History] Albuterol Inhaler [Ventolin Hfa Inhaler] 2 puff INHALATION RT-QID PRN 02/23/23 [History] Ipratropium-Albuterol Nebulize [Duoneb 0.5 mg-3 mg/3 ml Soln] 3 ml INHALATION RT-QID PRN #20 each 02/25/23 [Rx] Donepezil [Aricept] 5 mg PO HS 05/06/23 [History] predniSONE 5 mg PO DAILY 05/06/23 [History] Aspirin 81 mg PO DAILY #30 tab 05/10/23 [Rx] Atorvastatin [Lipitor] 40 mg PO DAILY #30 tab 05/10/23 [Rx] Ipratropium-Albuterol Nebulize [Duoneb 0.5 mg-3 mg/3 ml Soln] 3 ml INHALATION RT-QID each 05/10/23 [Rx] Isosorbide Mononitrate ER [Imdur] 30 mg PO DAILY #30 tab 05/10/23 [Rx] Lactulose [Cephulac] 30 gm PO TID PRN #360 ml 05/10/23 [Rx] Metoprolol Tartrate [Lopressor] 25 mg PO BID #60 tab 05/10/23 [Rx] Torsemide [Demadex] 10 mg PO DAILY 30 Days #15 tab 05/10/23 [Rx] lisinopriL [Zestril] 5 mg PO DAILY #30 tab 05/10/23 [Rx] Pantoprazole [Protonix] 40 mg PO DAILY #30 tab 05/12/23 [Rx] polyethylene glycoL 3350 [Miralax] 17 gm PO DAILY 08/06/23 [History] Follow up Appointment(s)/Referral(s): Doretha Rose MD [Primary Care Provider] - 1-2 days Gorge Bui MD [STAFF PHYSICIAN] - 10 Days Discharge Disposition: HOME SELF-CARE
[2023-08-09 12:20] VITALS: PULSE 68
--- NOTE | 2023-08-09 12:41 | CDI ---
Documentation Clarification Form Date: 08/09/2023 12:14:11 PM From: Vera Page RN, CCDS Email: [email or web address] Admit Date: 08/07/2023 11:32:00 AM Patient Name: Demetrio Cordero V Visit Number: [id number] Discharge Date: ATTENTION: The Clinical Documentation Specialists (CDI) and [facility] Coding Staff appreciate your assistance in clarifying documentation. Please respond to the clarification below the line at the bottom and electronically sign. The CDI & [facility] Coding staff will review the response and follow-up if needed. Please note: Queries are made part of the Legal Health Record. If you have any questions, please contact the author of this message via ITS. Dr. Mey Alaniz Your patient has the documented diagnosis of unspecified CHF in the progress notes. Additional information regarding the type of CHF is requested. History/Risk Factors: CAD, CABG, HTN, aortic stenosis and heart failure. Presented with chest pain. Admitted with NSTEMI. Clinical Indicators: H&P: "Acute Non-Stemi with troponin elevation with upwards trend. History of heart failure." 08/06 BNP: 325 08/07 Echocardiogram: EF 50-55%, LV wall thickness, right ventricular dilatation, moderate to severe aortic stenosis Chest X Ray: Cardiomegaly and mild pulmonary vascular congestion Treatment: Torsemide 10mg po daily 08/07-08/09; Lopressor 25mg po bid 08/07- 08/09; Zestril 10mg po daily 08/08-08/09 In your professional opinion, can you please clarify the type of CHF if known? [ ] Chronic Systolic Heart Failure (reduced EF) [ x ] Chronic Diastolic Heart Failure (preserved EF) [ ] Chronic Systolic & Diastolic Heart Failure [ ] Other, please specify [ ] Unable to determine MTDD
[2023-08-09 15:21] VITALS: BP 105/59
== END 2023-08-09 15:22 | disposition home or self-care (01) | DRG 281 ==
LOC: EC 19:36 → 6NMEDSUR 20:51 → OBSVTOIN 08-07 11:32 → 3SCARD 08-07 13:16
PROVIDERS: ADMIT Hospitalist; ATTEND Hospitalist
PROC: B2181ZZ Fluoroscopy of Left Internal Mammary Bypass Graft using Low Osmolar Contrast (ICD-10-PCS; 2023-08-08)
PROC: B2131ZZ Fluoroscopy of Multiple Coronary Artery Bypass Grafts using Low Osmolar Contrast (ICD-10-PCS; 2023-08-08)
PROC: 4A023N7 Measurement of Cardiac Sampling and Pressure, Left Heart, Percutaneous Approach (ICD-10-PCS; principal; 2023-08-08 14:01)
PROC: B2111ZZ Fluoroscopy of Multiple Coronary Arteries using Low Osmolar Contrast (ICD-10-PCS; 2023-08-08 14:01)
DX: I21.4 Non-ST elevation (NSTEMI) myocardial infarction (principal); I50.32 Chronic diastolic (congestive) heart failure; E78.5 Hyperlipidemia, unspecified; F32.A Depression, unspecified; F41.9 Anxiety disorder, unspecified; I11.0 Hypertensive heart disease with heart failure; I25.10 Atherosclerotic heart disease of native coronary artery without angina pectoris; I35.0 Nonrheumatic aortic (valve) stenosis; I45.10 Unspecified right bundle-branch block; J44.9 Chronic obstructive pulmonary disease, unspecified; K21.9 Gastro-esophageal reflux disease without esophagitis; Z20.822 Contact with and (suspected) exposure to COVID-19; E66.9 Obesity, unspecified; G47.33 Obstructive sleep apnea (adult) (pediatric); Z95.1 Presence of aortocoronary bypass graft; I25.2 Old myocardial infarction; Z79.82 Long term (current) use of aspirin; Z79.899 Other long term (current) drug therapy; Z82.49 Family history of ischemic heart disease and other diseases of the circulatory system; Z95.5 Presence of coronary angioplasty implant and graft; Z87.891 Personal history of nicotine dependence; Z68.33 Body mass index [BMI] 33.0-33.9, adult
CPT/HCPCS: 36415; 71046; 76937; 80053; 83735; 83880; 84484; 85025; 85610; 85730; 87636; 93005; 93306; 93455; 94640; 94660; 94760; 99285

== ENCOUNTER 2023-08-18 23:58 | Inpatient (IN) | payer MEDICARE ==
--- NOTE | 2023-08-19 00:15 | ED ---
SOB HPI - General Chief Complaint: Shortness of Breath Stated Complaint: SOB Time Seen by Provider: 08/19/23 00:01 Source: EMS, RN notes reviewed, old records reviewed Mode of arrival: EMS Limitations: language barrier (Difficulty communication do not able to hear) - History of Present Illness Initial Comments: This is a 83-year-old male to the ER for evaluation of shortness of breath severe shortness breath recent hospital admission for same. Patient states he feels feverish occasionally sweaty with chills. Patient has occasional chest pain but main complaint being shortness of breath, states he does live at home with his was also not feeling well MD Complaint: shortness of breath, cough, anxiety -: days(s) Severity: severe Severity scale (1-10): 9 Consistency: constant Improves With: nothing, rest Known History Of: COPD, recurrent pneumonia Context: recent URI, anxiety, recent illness Associated Symptoms: chest pain - Related Data Home Medications Medication Instructions Recorded Confirmed Ezetimibe [Zetia] 10 mg PO DAILY 02/13/16 08/19/23 Nitroglycerin Sl Tabs [Nitrostat] 0.4 mg SL Q5M PRN 06/22/16 08/19/23 clonazePAM [KlonoPIN] 0.5 mg PO DAILY PRN 06/22/16 08/19/23 Clopidogrel [Plavix] 75 mg PO HS 10/20/19 08/19/23 Montelukast Sodium [Singulair] 10 mg PO DAILY 06/22/20 08/19/23 DULoxetine HCL [Cymbalta] 60 mg PO DAILY 07/19/21 08/19/23 Fluticasone/Umeclidin/Vilanter 1 puff INHALATION RT-DAILY 03/06/22 08/19/23 [Trelegy Ellipta 100-62.5-25] Albuterol Inhaler [Ventolin Hfa 2 puff INHALATION RT-QID PRN 02/23/23 08/19/23 Inhaler] Donepezil [Aricept] 5 mg PO BID 05/06/23 08/19/23 predniSONE 5 mg PO DAILY 05/06/23 08/19/23 polyethylene glycoL 3350 [Miralax] 17 gm PO DAILY 08/06/23 08/19/23 Acetaminophen Tab [Tylenol Tab] 500 mg PO BID 08/19/23 08/19/23 Previous Rx's Medication Instructions Recorded Ipratropium-Albuterol Nebulize 3 ml INHALATION RT-QID PRN #20 each 02/25/23 [Duoneb 0.5 mg-3 mg/3 ml Soln] Aspirin 81 mg PO DAILY #30 tab 05/10/23 Atorvastatin [Lipitor] 40 mg PO DAILY #30 tab 05/10/23 Ipratropium-Albuterol Nebulize 3 ml INHALATION RT-QID each 05/10/23 [Duoneb 0.5 mg-3 mg/3 ml Soln] Isosorbide Mononitrate ER [Imdur] 30 mg PO DAILY #30 tab 05/10/23 Metoprolol Tartrate [Lopressor] 25 mg PO BID #60 tab 05/10/23 Torsemide [Demadex] 10 mg PO DAILY 30 Days #15 tab 05/10/23 lisinopriL [Zestril] 5 mg PO DAILY #30 tab 05/10/23 Pantoprazole [Protonix] 40 mg PO DAILY #30 tab 05/12/23 Allergies Allergy/AdvReac Type Severity Reaction Status Date / Time No Known Allergies Allergy Verified 08/19/23 08:24 Review of Systems ROS Statement: Those systems with pertinent positive or pertinent negative responses have been documented in the HPI. ROS Other: All systems not noted in ROS Statement are negative. Past Medical History Past Medical History: Coronary Artery Disease (CAD), Heart Failure, COPD, Hyperlipidemia, Sleep Apnea/CPAP/BIPAP Additional Past Medical History / Comment(s): COPD, obesity, coronary artery disease with previous bypass surgery, cataracts, hiatal hernia, obstructive sleep apnea with CPAP therapy. 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 Mother History Unknown: Yes Family Medical History: CVA/TIA Additional Family Medical History / Comment(s): at age 99 3/4 from a stoke General Exam General appearance: alert, anxious, in distress Head exam: Present: atraumatic, normocephalic, normal inspection Eye exam: Present: normal appearance, PERRL, EOMI. Absent: scleral icterus, conjunctival injection, periorbital swelling ENT exam: Present: normal exam, mucous membranes moist Neck exam: Present: normal inspection. Absent: tenderness, meningismus, lymphadenopathy Respiratory exam: Present: respiratory distress, wheezes, accessory muscle use, decreased breath sounds, prolonged expiratory. Absent: rales, rhonchi, stridor Cardiovascular Exam: Present: regular rate, normal rhythm, tachycardia, normal heart sounds. Absent: systolic murmur, diastolic murmur, rubs, gallop, clicks GI/Abdominal exam: Present: soft, normal bowel sounds. Absent: distended, tenderness, guarding, rebound, rigid Extremities exam: Present: normal inspection, full ROM, normal capillary refill. Absent: tenderness, pedal edema, joint swelling, calf tenderness Back exam: Present: normal inspection Neurological exam: Present: alert, oriented X3, CN II-XII intact Psychiatric exam: Present: normal affect, normal mood Skin exam: Present: warm, dry, intact, normal color. Absent: rash Course Vital Signs 08/18/23 08/19/23 08/19/23 23:59 01:12 01:23 Temperature 99.7 F H Pulse Rate 101 H 88 92 Pulse Rate [ Supervising Film Or Videotape Editor ] Respiratory 20 Rate Blood Pressure 136/87 Blood Pressure [Supine] O2 Sat by Pulse 92 L Oximetry 08/19/23 08/19/23 08/19/23 02:00 03:59 04:00 Temperature Pulse Rate 77 78 80 Pulse Rate [ Supervising Film Or Videotape Editor ] Respiratory 24 22 Rate Blood Pressure 110/68 99/44 Blood Pressure [Supine] O2 Sat by Pulse 93 L 98 Oximetry 08/19/23 08/19/23 08/19/23 04:09 05:00 07:00 Temperature Pulse Rate 76 80 73 Pulse Rate [ Supervising Film Or Videotape Editor ] Respiratory 24 20 Rate Blood Pressure 106/59 115/60 Blood Pressure [Supine] O2 Sat by Pulse 98 99 Oximetry 08/19/23 08/19/23 08/19/23 07:44 08:16 09:55 Temperature 98.2 F Pulse Rate 73 Pulse Rate [ 87 Supervising Film Or Videotape Editor ] Respiratory 18 12 Rate Blood Pressure 124/66 Blood Pressure 122/54 [Supine] O2 Sat by Pulse 100 100 100 Oximetry 08/19/23 08/19/23 08/19/23 11:51 14:41 18:00 Temperature Pulse Rate 73 Pulse Rate [ 84 75 Supervising Film Or Videotape Editor ] Respiratory 24 22 20 Rate Blood Pressure 113/61 Blood Pressure 134/64 99/58 [Supine] O2 Sat by Pulse 96 95 95 Oximetry 08/19/23 21:30 Temperature Pulse Rate 76 Pulse Rate [ Supervising Film Or Videotape Editor ] Respiratory 16 Rate Blood Pressure 111/57 Blood Pressure [Supine] O2 Sat by Pulse 94 L Oximetry - Reevaluation(s) Reevaluation #1: 08/19/23 01:56 Medical records reviewed Reevaluation #2: 08/19/23 01:56 Patient symptoms are not improving Reevaluation #3: 08/19/23 01:56 Patient informed results questions answered Reevaluation #4: 08/19/23 00:17 Was pt. sent in by a medical professional or institution (, PA, CARTON FILLING MACHINE OPERATOR, urgent care, hospital, or snf...) When possible be specific @ -no Did you speak to anyone other than the patient for history (EMS, parent, family, police, friend...)? What history was obtained from this source @ -no Did you review nursing and triage notes (agree or disagree)? Why? @ -agree Are old charts reviewed (outside hosp., previous admission, EMS record, old EKG, old radiological studies, urgent care reports/EKG's, snf records)? Report findings @ -yes Differential Diagnosis (chest pain, altered mental status, abdominal pain women, abdominal pain men, vaginal bleeding, weakness, fever, dyspnea, syncope, headache, dizziness, GI bleed, back pain, seizure, CVA, palpatations, mental health, musculoskeletal)? @ -prior EKG interpreted by me (3pts min.). @ -yes X-rays interpreted by me (1pt min.). @ -yes negative for acute disease CT interpreted by me (1pt min.). @ -no U/S interpreted by me (1pt. min.). @ -no What testing was considered but not performed or refused? (CT, X-rays, U/S, labs)? Why? @ -none What meds were considered but not given or refused? Why? @ -none Did you discuss the management of the patient with other professionals (professionals i.e. Dr., PA, CARTON FILLING MACHINE OPERATOR, lab, RT, psych nurse, social worker psychiatric, pierce and shave press operator, teacher, radiation safety officer, case resource manager)? Give summary @ -no Was smoking cessation discussed for >3mins.? @ -no Was critical care preformed (if so, how long)? @ -no Were there social determinants of health that impacted care today? How? (Homelessness, low income, unemployed, alcoholism, drug addiction, transportation, low edu. Level, literacy, decrease access to med. care, detention, rehab)? @ -none Was there de-escalation of care discussed even if they declined (Discuss DNR or withdrawal of care, Hospice)? DNR status @ -no What co-morbidities impacted this encounter? (DM, HTN, Smoking, COPD, CAD, Cancer, CVA, ARF, Chemo, Hep., AIDS, mental health diagnosis, sleep apnea, morbid obesity)? @ -none Was patient admitted / discharged? Hospital course, mention meds given and route, prescriptions, significant lab abnormalities, going to OR and other pertinent info. @ - 83 male to the emergency department for evaluation with fever, known history of recurrent evaluation admission of CHF, patient does have strong history of COPD will admit for breathing treatments and supportive care Admitted Undiagnosed new problem with uncertain prognosis? @ -no Drug Therapy requiring intensive monitoring for toxicity (Heparin, Nitro, Insulin, Cardizem)? @ -no Were any procedures done? @ -no Diagnosis/symptom? @ -CHF and shortness of breath Acute, or Chronic, or Acute on Chronic? @ -Acute Uncomplicated (without systemic symptoms) or Complicated (systemic symptoms)? @ -Complicated Side effects of treatment? @ -no Exacerbation, Progression, or Severe Exacerbation? @ -exacerbation Poses a threat to life or bodily function? How? (Chest pain, USA, DC, pneumonia, PE, COPD, DKA, ARF, appy, cholecystitis, CVA, Diverticulitis, Homicidal, Suicidal, threat to staff... and all critical care pts) @ -yes significant recurrent CHF Reevaluation #5: 08/19/23 01:57 Differential Dyspnea: Coronary syndrome, arrhythmia, tamponade, asthma, COPD, pulmonary embolism, pneumonia, pneumothorax, pulmonary effusion, anaphylaxis, diabetic ketoacidosis, flailed chest, pulmonary contusion, diaphragmatic rupture, anemia, neur omuscular, this is not meant to be an all-inclusive list. Medical Decision Making - Medical Decision Making 83 male to the emergency department for evaluation with fever, patient does have strong history of COPD will admit for breathing treatments and supportive care, patient also does have CHF here in the emergency department will be admitted for further evaluation management - Lab Data Result diagrams: 08/19/23 00:58 08/19/23 09:04 Lab Results 08/19/23 08/19/23 08/19/23 Range/Units 00:58 00:58 00:58 WBC 6.7 (3.8-10.6) k/uL RBC 4.15 L (4.30-5.90) m/uL Hgb 13.4 (13.0-17.5) gm/dL Hct 39.2 (39.0-53.0) % MCV 94.7 (80.0-100.0) fL MCH 32.3 (25.0-35.0) pg MCHC 34.1 (31.0-37.0) g/dL RDW 13.3 (11.5-15.5) % Plt Count 147 L (150-450) k/uL MPV 9.8 Neutrophils % 73 % Lymphocytes % 10 % Monocytes % 14 % Eosinophils % 0 % Basophils % 1 % Neutrophils # 4.9 (1.3-7.7) k/uL Lymphocytes # 0.7 L (1.0-4.8) k/uL Monocytes # 0.9 (0-1.0) k/uL Eosinophils # 0.0 (0-0.7) k/uL Basophils # 0.0 (0-0.2) k/uL PT 10.6 (10.0-12.5) sec INR 1.0 (<1.2) APTT 24.5 (22.0-30.0) sec Sodium 133 L (137-145) mmol/L Potassium 4.0 (3.5-5.1) mmol/L Chloride 100 (98-107) mmol/L Carbon Dioxide 21 L (22-30) mmol/L Anion Gap 12 mmol/L BUN 19 (9-20) mg/dL Creatinine 0.89 (0.66-1.25) mg/dL Est GFR (CKD-EPI)AfAm >90 (>60 ml/min/1.73 sqM) Est GFR (CKD-EPI)NonAf 80 (>60 ml/min/1.73 sqM) Glucose 125 H (74-99) mg/dL Plasma Lactic Acid Ronaldo (0.7-2.0) mmol/L Calcium 8.9 (8.4-10.2) mg/dL Magnesium 2.1 (1.6-2.3) mg/dL Total Bilirubin 0.7 (0.2-1.3) mg/dL AST 38 (17-59) U/L ALT 29 (4-49) U/L Alkaline Phosphatase 83 (38-126) U/L Troponin I (0.000-0.034) ng/mL NT-Pro-B Natriuret Pep 498 pg/mL Total Protein 6.5 (6.3-8.2) g/dL Albumin 4.0 (3.5-5.0) g/dL 08/19/23 08/19/23 Range/Units 00:58 00:58 WBC (3.8-10.6) k/uL RBC (4.30-5.90) m/uL Hgb (13.0-17.5) gm/dL Hct (39.0-53.0) % MCV (80.0-100.0) fL MCH (25.0-35.0) pg MCHC (31.0-37.0) g/dL RDW (11.5-15.5) % Plt Count (150-450) k/uL MPV Neutrophils % % Lymphocytes % % Monocytes % % Eosinophils % % Basophils % % Neutrophils # (1.3-7.7) k/uL Lymphocytes # (1.0-4.8) k/uL Monocytes # (0-1.0) k/uL Eosinophils # (0-0.7) k/uL Basophils # (0-0.2) k/uL PT (10.0-12.5) sec INR (<1.2) APTT (22.0-30.0) sec Sodium (137-145) mmol/L Potassium (3.5-5.1) mmol/L Chloride (98-107) mmol/L Carbon Dioxide (22-30) mmol/L Anion Gap mmol/L BUN (9-20) mg/dL Creatinine (0.66-1.25) mg/dL Est GFR (CKD-EPI)AfAm (>60 ml/min/1.73 sqM) Est GFR (CKD-EPI)NonAf (>60 ml/min/1.73 sqM) Glucose (74-99) mg/dL Plasma Lactic Acid Ronaldo 1.7 (0.7-2.0) mmol/L Calcium (8.4-10.2) mg/dL Magnesium (1.6-2.3) mg/dL Total Bilirubin (0.2-1.3) mg/dL AST (17-59) U/L ALT (4-49) U/L Alkaline Phosphatase (38-126) U/L Troponin I 1.670 H* (0.000-0.034) ng/mL NT-Pro-B Natriuret Pep pg/mL Total Protein (6.3-8.2) g/dL Albumin (3.5-5.0) g/dL - EKG Data -: EKG Interpreted by Me (EKG is sinus 97 GA 132 QRS 146 QTc 441) - Radiology Data Radiology results: report reviewed (Chest x-rays positive for CHF), image reviewed Disposition Clinical Impression: COPD (chronic obstructive pulmonary disease), Acute exacerbation of chronic obstructive pulmonary disease, Acute exacerbation of chronic obstructive airways disease, Unstable angina pectoris, Weakness, Fever Disposition: ADMITTED IP TO THIS HOSP Condition: Fair Is patient prescribed a controlled substance at d/c from ED?: No Time of Disposition: 01:50
[2023-08-19] MEDS ORDERED: IPRATROPIUM-ALBUTEROL 3 ML NEB INHALATION STA ×2 (00:38→01:54)
[2023-08-19 01:34] LABS: Partial Thromboplastin Time 24.5 sec (22.0-30.0); Prothrombin Time 10.6 sec (10.0-12.5)
[2023-08-19] MEDS ORDERED: IBUPROFEN IV 800 MG in SODIUM CHLORIDE 0.9% 250 ML IV ONE (01:37)
[2023-08-19] MEDS ORDERED: ACETAMINOPHEN IV (For NPO) 1,000 MG in EMPTY BAG 1 BAG IVPB STA (01:37)
[2023-08-19 01:38] LABS: Basophils % (A) 1 %; Eosinophils % (A) 0 %; HCT 39.2 % (39.0-53.0); HGB 13.4 gm/dL (13.0-17.5); Lymphocytes # (A) 0.7 k/uL (1.0-4.8); Lymphocytes % (A) 10 %; MCH 32.3 pg (25.0-35.0); MCHC 34.1 g/dL (31.0-37.0); MCV 94.7 fL (80.0-100.0); Mean Platelet Volume 9.8; Monocytes # (A) 0.9 k/uL (0-1.0); Monocytes % (A) 14 %; Neutrophils # (A) 4.9 k/uL (1.3-7.7); Neutrophils % (A) 73 %; Platelet Count 147 k/uL (150-450); RBC 4.15 m/uL (4.30-5.90); RDW 13.3 % (11.5-15.5); WBC 6.7 k/uL (3.8-10.6)
[2023-08-19] MEDS ORDERED: NALOXONE 0.4 MG/ML 1 ML VIAL IV PRN (01:38)
[2023-08-19] MEDS ORDERED: MORPHINE SULFATE 4 MG/ML SYRINGE IV PRN (01:38)
[2023-08-19] MEDS ORDERED: ONDANSETRON 4 MG/2 ML VIAL IVP PRN (01:38)
[2023-08-19 01:41] LABS: ALT 29 U/L (4-49); AST 38 U/L (17-59); African American GFR (CKD) >90 (>60 ml/min/1.73 sqM); Alkaline Phosphatase 83 U/L (38-126); Anion Gap 12 mmol/L; Blood Urea Nitrogen 19 mg/dL (9-20); Calcium 8.9 mg/dL (8.4-10.2); Carbon Dioxide 21 mmol/L (22-30); Chloride 100 mmol/L (98-107); Glucose 125 mg/dL (74-99); Magnesium 2.1 mg/dL (1.6-2.3); Non-African American GFR(CKD) 80 (>60 ml/min/1.73 sqM); Sodium 133 mmol/L (137-145); Total Bilirubin 0.7 mg/dL (0.2-1.3); Total Protein 6.5 g/dL (6.3-8.2)
[2023-08-19] MEDS ORDERED: SODIUM CHLORIDE 0.9% 1,000 ML IV SCH (01:45)
[2023-08-19 01:49] LABS: NT-Pro-B-Type Natriuretic Pept 498 pg/mL
--- NOTE | 2023-08-19 01:55 | XR ---
EXAM: XR Chest, 1 View CLINICAL HISTORY: ITS.REASON XR Reason: sob TECHNIQUE: Frontal view of the chest. COMPARISON: No relevant prior studies available. FINDINGS: Lungs: Interstitial edema most concerning for fluid overload. Pleural space: Unremarkable. No pneumothorax. No pleural effusions. Heart: Stable mild enlargement of cardiac silhouette. Mediastinum: Unremarkable. Normal mediastinal contour. Bones/joints: No acute osseous abnormalities. IMPRESSION: Interstitial edema most concerning for fluid overload.
[2023-08-19] MEDS ORDERED: MORPHINE SULFATE 2 MG/ML SYRINGE IV PRN (02:41)
[2023-08-19] MEDS ORDERED: NITROGLYCERIN SL TABS 0.4 MG TAB SUBLINGUAL PRN (02:42)
[2023-08-19] MEDS ORDERED: HEPARIN SODIUM 1,000 UN/ML (10ML VL) IV ONE ×3 (02:42→02:47)
[2023-08-19] MEDS ORDERED: HEPARIN SODIUM 1,000 UN/ML (10ML VL) IV PRN ×2 (02:43→02:47)
[2023-08-19] MEDS ORDERED: HEPARIN SOD,PORK IN 0.45% NACL 25,000 UNIT in 0.45% NACL 1 250ML.BAG IV SCH ×2 (02:45)
[2023-08-19] MEDS: HEPARIN SOD,PORK IN 0.45% NACL 25,000 UNIT in 0.45% NACL 1 250ML.BAG IV SCH (03:35)
[2023-08-19] MEDS: CLOPIDOGREL 75 MG TAB PO SCH ×2 (04:26→21:36)
[2023-08-19] MEDS ORDERED: ALBUTEROL NEBULIZED 2.5 MG/3 ML INHALATION SCH (08:00)
[2023-08-19] MEDS: ALBUTEROL HFA INHALER INHALATION PRN ×4 (08:15→19:43)
[2023-08-19] MEDS ORDERED: IPRATROPIUM-ALBUTEROL 3 ML NEB INHALATION PRN (08:53)
[2023-08-19] MEDS ORDERED: clonazePAM 0.5 MG TAB PO PRN (08:53)
[2023-08-19] MEDS ORDERED: TIOTROPIUM 2.5 MCG INHALER INHALATION PRN (08:59)
[2023-08-19] MEDS ORDERED: lisinopriL 5 MG TAB PO SCH (09:00)
[2023-08-19] MEDS ORDERED: PANTOPRAZOLE 40 MG TABLET PO SCH (09:00)
[2023-08-19 09:45] LABS: African American GFR (CKD) >90 (>60 ml/min/1.73 sqM); Anion Gap 13 mmol/L; Blood Urea Nitrogen 17 mg/dL (9-20); Calcium 8.6 mg/dL (8.4-10.2); Carbon Dioxide 18 mmol/L (22-30); Chloride 105 mmol/L (98-107); Glucose 109 mg/dL (74-99); Non-African American GFR(CKD) 81 (>60 ml/min/1.73 sqM); Sodium 136 mmol/L (137-145)
[2023-08-19 09:59] LABS: Potassium 4.4 mmol/L (3.5-5.1)
--- NOTE | 2023-08-19 10:10 | P.CRDCN ---
History of Present Illness History of present illness: HISTORY OF PRESENT ILLNESS: This is a 83-year-old male with a past medical history significant for coronary artery disease with previous CABG and subsequent stenting, hypertension, hyperlipidemia, COPD, and aortic stenosis. 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 Vuong. We have been asked to see the patient in consultation for elevated troponins. Patient examined at the bedside in the emergency room. The patient presented to the hospital with a chief complaint of shortness of breath. The patient has a frequent congested cough at the time of examination. He denies any chest pain or pressure. He reports mild nausea but no vomiting. He denies any dizziness or lightheadedness. Patient was found to be positive for Covid 19. The patient was also found to have elevated troponins and was started on IV heparin. * EKG reveals EKG reveals sinus mechanism with right bundle branch block. * Chest xray interstitial edema concerning for fluid overload * Laboratory data: Troponin 1.670. 4.240. 3.170. * Current home cardiac medications include Plavix 75 mg at night, lisinopril 5 mg daily, Demadex 10 mg daily, Imdur 30 mg daily, Zetia 10 mg daily, atorvastatin 40 mg daily, and aspirin 81 mg daily * Most recent echocardiogram obtained in July 2023 revealed ejection fraction 50-55%, mild to moderate mitral regurgitation, moderate to severe aortic stenosis with peak gradient of 60 mmHg and mean gradient of 37 mmHg, and mild TR * Cardiac catheterization history: 08/08/2023 revealing severe coronary artery disease, [id number] nonobstructive disease involving the RCA, patent HERNANDEZ to LAD and patent SVG to OM, left circumflex proximally is occluded and LAD proximally is occluded. Medical management was recommended. REVIEW OF SYSTEMS: At the time of my exam: CONSTITUTIONAL: Denies fever or chills. HEENT: Denies blurred vision, vision changes, or eye pain. Denies hemoptysis CARDIOVASCULAR: Denies chest pain. Denies orthopnea. Denies PND. Denies palpitations RESPIRATORY: Reports shortness of breath. GASTROINTESTINAL: Denies abdominal pain. Denies nausea or vomiting. HEMATOLOGIC: Denies bleeding disorders. GENITOURINARY: Denies any blood in urine. SKIN: Denies pruitis. Denies rash. PHYSICAL EXAM: VITAL SIGNS: Reviewed. GENERAL: Well-developed in no acute distress. HEENT: Head is normocephalic. Pupils are equal, round. Sclerae anicteric. Mucous membranes of the mouth are moist. Neck supple. No JVD or thyromegaly LUNGS: Respirations even and unlabored. Lungs with expiratory wheezing and crackles noted. Frequent coughing noted during examination HEART: Regular rate and rhythm. S1 and S2 heard. Systolic murmur noted with diminished S2. ABDOMEN: Soft. Nondistended. Nontender. EXTREMITIES: Normal range of motion. No clubbing or cyanosis. Peripheral pulses intact. Trace lower extremity edema NEUROLOGIC: Awake and alert. Oriented x 3. ASSESSMENT: Shortness of breath Covid 19 Non-STEMI Acute on chronic heart failure with preserved EF, clinically volume overloaded, despite normal BNP Moderate to severe aortic stenosis Coronary artery disease with previous CABG and subsequent stenting of SVG to , April 2023 Hypertension Hyperlipidemia COPD PLAN: Obtain limited echo to assess LV function and aortic stenosis Continue IV heparin Begin Lasix 40 mg every 12 hours Daily weights, accurate I&O, and monitoring of kidney function Continue dual anti- platelet therapy secondary to stenting in April 2023 Continue atorvastatin 40 mg daily Hold lisinopril secondary to BP in the 110s with addition of IV lasix Patient will require cardiac catheterization when he is medically stable. Cardiac catheterization not urgent at this time as patient has no complaints of chest pain and is positive for Covid 19 Further recommendations pending patient's course Nurse practitioner note has been reviewed by physician. Signing provider agrees with the documented findings, assessment, and plan of care. Past Medical History Past Medical History: Coronary Artery Disease (CAD), Heart Failure, COPD, Hyperlipidemia, Sleep Apnea/CPAP/BIPAP Additional Past Medical History / Comment(s): COPD, obesity, coronary artery d isease with previous bypass surgery, cataracts, hiatal hernia, obstructive sleep apnea with CPAP therapy. 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 Mother History Unknown: Yes Family Medical History: CVA/TIA Additional Family Medical History / Comment(s): at age 99 3/4 from a stoke Medications and Allergies Home Medications Medication Instructions Recorded Confirmed Type Ezetimibe [Zetia] 10 mg PO DAILY 02/13/16 08/19/23 History Nitroglycerin Sl Tabs [Nitrostat] 0.4 mg SL Q5M PRN 06/22/16 08/19/23 History clonazePAM [KlonoPIN] 0.5 mg PO DAILY PRN 06/22/16 08/19/23 History Clopidogrel [Plavix] 75 mg PO HS 10/20/19 08/19/23 History Montelukast Sodium [Singulair] 10 mg PO DAILY 06/22/20 08/19/23 History DULoxetine HCL [Cymbalta] 60 mg PO DAILY 07/19/21 08/19/23 History Fluticasone/Umeclidin/Vilanter 1 puff INHALATION RT-DAILY 03/06/22 08/19/23 History [Trelelizandro Ellipta 100-62.5-25] Albuterol Inhaler [Ventolin Hfa 2 puff INHALATION RT-QID PRN 02/23/23 08/19/23 History Inhaler] Ipratropium-Albuterol Nebulize 3 ml INHALATION RT-QID PRN #20 each 02/25/23 08/19/23 Rx [Duoneb 0.5 mg-3 mg/3 ml Soln] Donepezil [Aricept] 5 mg PO BID 05/06/23 08/19/23 History predniSONE 5 mg PO DAILY 05/06/23 08/19/23 History Aspirin 81 mg PO DAILY #30 tab 05/10/23 08/19/23 Rx Atorvastatin [Lipitor] 40 mg PO DAILY #30 tab 05/10/23 08/19/23 Rx Ipratropium-Albuterol Nebulize 3 ml INHALATION RT-QID each 05/10/23 08/19/23 Rx [Duoneb 0.5 mg-3 mg/3 ml Soln] Isosorbide Mononitrate ER [Imdur] 30 mg PO DAILY #30 tab 05/10/23 08/19/23 Rx Metoprolol Tartrate [Lopressor] 25 mg PO BID #60 tab 05/10/23 08/19/23 Rx Torsemide [Demadex] 10 mg PO DAILY 30 Days #15 tab 05/10/23 08/19/23 Rx lisinopriL [Zestril] 5 mg PO DAILY #30 tab 05/10/23 08/19/23 Rx Pantoprazole [Protonix] 40 mg PO DAILY #30 tab 05/12/23 08/19/23 Rx polyethylene glycoL 3350 [Miralax] 17 gm PO DAILY 08/06/23 08/19/23 History Acetaminophen Tab [Tylenol Tab] 500 mg PO BID 08/19/23 08/19/23 History Allergies Allergy/AdvReac Type Severity Reaction Status Date / Time No Known Allergies Allergy Verified 08/19/23 08:24 Physical Exam Vitals: Vital Signs Temp Pulse Resp BP Pulse Ox 08/19/23 08:16 100 08/19/23 07:44 73 18 124/66 100 08/19/23 07:00 73 20 115/60 99 08/19/23 05:00 80 24 106/59 98 08/19/23 04:09 76 08/19/23 04:00 80 22 99/44 98 08/19/23 03:59 78 08/19/23 02:00 77 24 110/68 93 L 08/19/23 01:23 92 08/19/23 01:12 88 08/18/23 23:59 99.7 F H 101 H 20 136/87 92 L Intake and Output 08/18/23 08/19/23 08/19/23 22:59 06:59 14:59 Other: Weight 95.254 kg Results 08/19/23 00:58 08/19/23 09:04 Cardiac Enzymes 08/19/23 08/19/23 08/19/23 Range/Units 00:58 00:58 05:00 AST 38 (17-59) U/L Troponin I 1.670 H* 4.240 H* (0.000-0.034) ng/mL Coagulation 08/19/23 Range/Units 00:58 PT 10.6 (10.0-12.5) sec APTT 24.5 (22.0-30.0) sec CBC 08/19/23 Range/Units 00:58 WBC 6.7 (3.8-10.6) k/uL RBC 4.15 L (4.30-5.90) m/uL Hgb 13.4 (13.0-17.5) gm/dL Hct 39.2 (39.0-53.0) % Plt Count 147 L (150-450) k/uL Comprehensive Metabolic Panel 08/19/23 Range/Units 00:58 Sodium 133 L (137-145) mmol/L Potassium 4.0 (3.5-5.1) mmol/L Chloride 100 (98-107) mmol/L Carbon Dioxide 21 L (22-30) mmol/L BUN 19 (9-20) mg/dL Creatinine 0.89 (0.66-1.25) mg/dL Glucose 125 H (74-99) mg/dL Calcium 8.9 (8.4-10.2) mg/dL AST 38 (17-59) U/L ALT 29 (4-49) U/L Alkaline Phosphatase 83 (38-126) U/L Total Protein 6.5 (6.3-8.2) g/dL Albumin 4.0 (3.5-5.0) g/dL Current Medications Generic Name Dose Route Start Last Admin Trade Name Freq PRN Reason Stop Dose Admin Acetaminophen 650 mg 08/19/23 08:51 Acetaminophen Tab 325 Mg Tab PO Q4HR PRN Fever>101 Albuterol Sulfate 2 puff 08/19/23 08:10 08/19/23 08:15 Albuterol Hfa Inhaler INHALATION 2 puff RT-QID PRN Administration Shortness Of Breath Or Wheezing Albuterol/Ipratropium 3 ml 08/19/23 08:53 Ipratropium-Albuterol 3 Ml Neb INHALATION RT-QID PRN Shortness Of Breath Aspirin 81 mg 08/19/23 09:00 Aspirin 81 Mg PO DAILY ASA Atorvastatin Calcium 40 mg 08/19/23 09:00 Atorvastatin 40 Mg Tab PO DAILY ASA Clonazepam 0.5 mg 08/19/23 08:53 Clonazepam 0.5 Mg Tab PO DAILY PRN Anxiety Clopidogrel Bisulfate 75 mg 08/19/23 02:47 08/19/23 04:26 Clopidogrel 75 Mg Tab PO 75 mg HS [facility] Administration Dexamethasone Sodium Phosphate 6 mg 08/19/23 09:00 Dexamethasone Sod Phosphate 10 Mg/Ml 1 Ml Vial IV 08/28/23 09:01 DAILY [facility] Donepezil HCl 5 mg 08/19/23 09:00 Donepezil 5 Mg Tab PO BID [facility] Duloxetine HCl 60 mg 08/19/23 09:00 Duloxetine Hcl 60 Mg Capsule.Dr PO DAILY [facility] Ezetimibe 10 mg 08/19/23 09:00 Ezetimibe 10 Mg Tab PO DAILY [facility] Heparin Sodium (Porcine) 0 unit 08/19/23 02:47 Heparin Sodium 1,000 Un/Ml (10ml Vl) IV PER PROTOCOL PRN Low PTT Protocol Sodium Chloride 1,000 mls @ 75 mls/hr 08/19/23 01:45 08/19/23 01:55 Saline 0.9% IV 75 mls/hr .[id number] [facility] Administration Heparin Sodium/Sodium Chloride 250 mls @ 10 mls/hr 08/19/23 03:00 08/19/23 03:35 25,000 unit/ Sodium Chloride IV 10.4982 units/kg/hr .Q24H ASA 10 mls/hr Administration Protocol 10.4982 UNITS/KG/HR Isosorbide Mononitrate 30 mg 08/19/23 09:00 Isosorbide Mononitrate Er 30 Mg Tab.Er.24h PO DAILY [facility] Lisinopril 5 mg 08/19/23 09:00 Lisinopril 5 Mg Tab PO DAILY [facility] Metoprolol Tartrate 25 mg 08/19/23 09:00 Metoprolol Tartrate 25 Mg Tab PO BID [facility] Montelukast Sodium 10 mg 08/19/23 09:00 Montelukast 10 Mg Tab PO DAILY [facility] Morphine Sulfate 1 mg 08/19/23 02:41 Morphine Sulfate 2 Mg/Ml Syringe IV Q4HR PRN Severe Pain (Scale 7 to 10) Naloxone HCl 0.2 mg 08/19/23 01:38 Naloxone 0.4 Mg/Ml 1 Ml Vial IV Q2M PRN Opioid Reversal Nitroglycerin 0.4 mg 08/19/23 02:42 Nitroglycerin Sl Tabs 0.4 Mg Tab SUBLINGUAL Q5M PRN Chest Pain Non-Formulary Medication 1 puff 08/20/23 08:00 Fluticasone/Umeclidin/Vilanter [Trelegy Ellipta 100-62.5-25] INHALATION RT-DAILY [facility] Ondansetron HCl 4 mg 08/19/23 01:38 Ondansetron 4 Mg/2 Ml Vial IVP Q8HR PRN Nausea And Vomiting Pantoprazole Sodium 40 mg 08/19/23 09:00 Pantoprazole 40 Mg/10 Ml Vial IV DAILY [facility] Pantoprazole Sodium 40 mg 08/19/23 09:00 Pantoprazole 40 Mg Tablet PO DAILY [facility] Intake and Output 08/18/23 08/19/23 08/19/23 22:59 06:59 14:59 Other: Weight 95.254 kg 08/19/23 00:58 08/19/23 00:58
[2023-08-19] MEDS: PANTOPRAZOLE 40 MG/10 ML VIAL IV SCH (10:16)
[2023-08-19] MEDS: ASPIRIN 81 MG PO SCH (10:18)
[2023-08-19] MEDS: ATORVASTATIN 40 MG TAB PO SCH (10:18)
[2023-08-19] MEDS: DEXAMETHASONE SOD PHOSPHATE 10 MG/ML 1 ML VIAL IV SCH (10:18)
[2023-08-19] MEDS: FUROSEMIDE 10 MG/ML 4 ML VIAL IV SCH ×2 (10:20→21:39)
[2023-08-19] MEDS: DONEPEZIL 5 MG TAB PO SCH ×2 (10:20→21:34)
[2023-08-19] MEDS: METOPROLOL TARTRATE 25 MG TAB PO SCH ×2 (10:23→21:37)
[2023-08-19] MEDS: MONTELUKAST 10 MG TAB PO SCH (10:24)
[2023-08-19] MEDS: EZETIMIBE 10 MG TAB PO SCH (10:28)
[2023-08-19] MEDS: ISOSORBIDE MONONITRATE ER 30 MG TAB.ER.24H PO SCH (10:28)
[2023-08-19] MEDS: DULoxetine HCL 60 MG CAPSULE.DR PO SCH (10:28)
[2023-08-19] MEDS: SYMBICORT 80-4.5 MCG INHALER INHALATION SCH ×2 (11:19→19:42)
--- NOTE | 2023-08-19 12:31 | P.CNPUL ---
History of Present Illness Consult date: 08/19/23 Reason for consult: dyspnea, cough History of present illness: his is a pleasant 82-year-old male patient with a history of oxygen and prednisone dependent COPD, coronary artery disease status post CABG and subsequent PCI, congestive heart failure, hyperlipidemia, generalized anxiety disorder, obesity, obstructive sleep apnea on CPAP. He also has moderate degree of aortic stenosis. Most recent coronary intervention was done in April 2023 and he underwent a stenting to SVG to OM. He does follow with Dr. Ortega in the office for management of his COPD. Patient presented to the emergency room yesterday evening complaining of shortness of breath and he did not have any significant sputum production. The cough was quite vigorous. He has not received any vaccination for Covid 19. The patient came into the emergency tested positive for Covid 19. The chest exit showed increased interstitial markings bilaterally. No airspace disease. No consolidation. No evidence of any acute pneumonia. The white cell count at 6.7 with a hemoglobin of 13.4. The troponins peaked at 4.2. He denies having any chest pain. Is known to have coronary artery disease and he has undergone recent coronary intervention and stenting. He is free of any chest pain for now. The rest of the viral screen came back negative. His proBNP level is at 498. His BUN is at 19 with a creatinine of 0.89. Normal coagulation profile. He is currently on 2 L of oxygen by nasal cannula. His EKG showing a sinus rhythm with a bundle branch block pattern essentially a right bundle branch block pattern. The patient is currently on aspirin. The patient is also on metoprolol 25 mg twice a day. He was started on IV heparin. He is also on Plavix. The rest of the home medications have been discontinued. He was also started on Decadron 6 mg IV every 24 hours. Cardiology consultation is in progress regarding these acute non-ST segment elevation myocardial infarction. Review of Systems CONSTITUTIONAL: Denies any recent significant weight loss or weight gain. Low- grade fever at time of admission at 99.7 EYES: Denies change in vision. EARS, NOSE, MOUTH, THROAT: Denies headaches, denies sore throat. CARDIOVASCULAR: Denies chest pain, palpitations or syncopal episodes. RESPIRATORY: See HPI GASTROINTESTINAL: Denies change in appetite, abdominal pain, nausea and vomiting, or diarrhea GENITOURINARY: Denies hematuria, denies infections. MUSKULOSKELETAL: Denies pain, denies swelling. INTEGUMENTARY: Denies rash, denies eczema. NEUROLOGICAL: Denies recent memory loss, no recent seizure activity. PSYCHIATRIC: Denies anxiety, denies depression. HEMATOLOGIC/LYMPHATIC: Denies anemia, denies enlarged lymph node Past Medical History Past Medical History: Coronary Artery Disease (CAD), Heart Failure, COPD, Hyperlipidemia, Sleep Apnea/CPAP/BIPAP Additional Past Medical History / Comment(s): COPD, obesity, coronary artery d isease with previous bypass surgery, cataracts, hiatal hernia, obstructive sleep apnea with CPAP therapy. 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 Mother History Unknown: Yes Family Medical History: CVA/TIA Additional Family Medical History / Comment(s): at age 99 3/4 from a stoke Medications and Allergies Home Medications Medication Instructions Recorded Confirmed Type Ezetimibe [Zetia] 10 mg PO DAILY 02/13/16 08/19/23 History Nitroglycerin Sl Tabs [Nitrostat] 0.4 mg SL Q5M PRN 06/22/16 08/19/23 History clonazePAM [KlonoPIN] 0.5 mg PO DAILY PRN 06/22/16 08/19/23 History Clopidogrel [Plavix] 75 mg PO HS 10/20/19 08/19/23 History Montelukast Sodium [Singulair] 10 mg PO DAILY 06/22/20 08/19/23 History DULoxetine HCL [Cymbalta] 60 mg PO DAILY 07/19/21 08/19/23 History Fluticasone/Umeclidin/Vilanter 1 puff INHALATION RT-DAILY 03/06/22 08/19/23 History [[place]ru[place] 100-62.5-25] Albuterol Inhaler [Ventolin Hfa 2 puff INHALATION RT-QID PRN 02/23/23 08/19/23 History Inhaler] Ipratropium-Albuterol Nebulize 3 ml INHALATION RT-QID PRN #20 each 02/25/23 08/19/23 Rx [Duoneb 0.5 mg-3 mg/3 ml Soln] Donepezil [Aricept] 5 mg PO BID 05/06/23 08/19/23 History predniSONE 5 mg PO DAILY 05/06/23 08/19/23 History Aspirin 81 mg PO DAILY #30 tab 05/10/23 08/19/23 Rx Atorvastatin [Lipitor] 40 mg PO DAILY #30 tab 05/10/23 08/19/23 Rx Ipratropium-Albuterol Nebulize 3 ml INHALATION RT-QID each 05/10/23 08/19/23 Rx [Duoneb 0.5 mg-3 mg/3 ml Soln] Isosorbide Mononitrate ER [Imdur] 30 mg PO DAILY #30 tab 05/10/23 08/19/23 Rx Metoprolol Tartrate [Lopressor] 25 mg PO BID #60 tab 05/10/23 08/19/23 Rx Torsemide [Demadex] 10 mg PO DAILY 30 Days #15 tab 05/10/23 08/19/23 Rx lisinopriL [Zestril] 5 mg PO DAILY #30 tab 05/10/23 08/19/23 Rx Pantoprazole [Protonix] 40 mg PO DAILY #30 tab 05/12/23 08/19/23 Rx polyethylene glycoL 3350 [Miralax] 17 gm PO DAILY 08/06/23 08/19/23 History Acetaminophen Tab [Tylenol Tab] 500 mg PO BID 08/19/23 08/19/23 History Allergies Allergy/AdvReac Type Severity Reaction Status Date / Time No Known Allergies Allergy Verified 08/19/23 08:24 Physical Exam Vitals: Vital Signs Temp Pulse Pulse Resp BP BP Pulse Ox 08/19/23 11:51 84 24 134/64 96 08/19/23 09:55 98.2 F 87 12 122/54 100 08/19/23 08:16 100 08/19/23 07:44 73 18 124/66 100 08/19/23 07:00 73 20 115/60 99 08/19/23 05:00 80 24 106/59 98 08/19/23 04:09 76 08/19/23 04:00 80 22 99/44 98 08/19/23 03:59 78 08/19/23 02:00 77 24 110/68 93 L 08/19/23 01:23 92 08/19/23 01:12 88 08/18/23 23:59 99.7 F H 101 H 20 136/87 92 L Intake and Output 08/18/23 08/19/23 08/19/23 22:59 06:59 14:59 Other: # Voids 1 # Bowel Movements 1 Weight 95.254 kg GENERAL EXAM: Alert, 83-year-old white male, comfortable in no apparent distress. The patient has been weaned down to 2L oxygen HEAD: Normocephalic and atraumatic EYES: Normal reaction of pupils, equal size. NOSE: Clear with pink turbinates. THROAT: No erythema or exudates. NECK: No masses, no JVD. CHEST: No chest wall deformity. LUNGS: Equal air entry with bibasilar inspiratory crackles and minimal expiratory wheezes throughout. No conversational dyspnea or accessory muscle use.. CVS: S1 and S2 normal with no audible murmur, regular rhythm. No extra heart sounds ABDOMEN: No hepatosplenomegaly, active bowel sounds, no guarding or rigidity. SPINE: No scoliosis or deformity SKIN: No rashes CENTRAL NERVOUS SYSTEM: No focal deficits, tone is normal in all 4 extremities. EXTREMITIES: There is no peripheral edema, clubbing, or cyanosis. Peripheral pulses are intact. Results - Laboratory Findings CBC and BMP: 08/19/23 00:58 08/19/23 09:04 PT/INR, D-dimer PT 10.6 sec (10.0-12.5) 08/19/23 00:58 INR 1.0 (<1.2) 08/19/23 00:58 Abnormal lab findings: Abnormal Labs 08/19/23 08/19/23 08/19/23 00:58 00:58 00:58 RBC 4.15 L Plt Count 147 L Lymphocytes # 0.7 L APTT Sodium 133 L Carbon Dioxide 21 L Glucose 125 H Troponin I 1.670 H* SARS-CoV-2 (PCR) 08/19/23 08/19/23 08/19/23 03:30 05:00 08:25 RBC Plt Count Lymphocytes # APTT Sodium Carbon Dioxide Glucose Troponin I 4.240 H* 3.170 H* SARS-CoV-2 (PCR) Detected A 08/19/23 08/19/23 09:04 09:04 RBC Plt Count Lymphocytes # APTT 62.8 H Sodium 136 L Carbon Dioxide 18 L Glucose 109 H Troponin I SARS-CoV-2 (PCR) - Diagnostic Findings Chest x-ray: image reviewed Assessment and Plan Plan: Acute Covid 19 infection. The patient is nonvaccinated. Symptoms started approximately 48 hours ago and the patient is presenting to Hospital because of worsening shortness of breath and cough. Chest x-ray shows no clear evidence of pneumonia. No significant hypoxemia and currently is on 2 L of O2 nasal cannul a. Acute non-ST segment elevation myocardial infarction Known history of coronary artery disease, and cardiac catheterization that was done in April 2023 showed cardiac catheterization was done and the patient underwent further intervention with stenting of the SVG to obtuse marginal CHF Most recent echocardiogram from 06/16/2022 shows a preserved left ventricular ejection fraction of 50-55%, with moderately increased LVH, and moderate aortic stenosis. The patient was diabetes and he responded to diuretics and the patient is currently on room air oxygen Moderate degree of aortic stenosis, please refer to the echocardiogram in the cardiac catheterization report Moderate chronic obstructive pulmonary disease, baseline FEV1 72% of predicted. Patient is oxygen dependent and the patient has been utilizing a bit on about treatments 4 times a day [id number] and recently hospitalized for an acute COPD exacerbation Coronary artery disease, with previous CABG and subsequent PCI, followed up by Dr. Vuong from cardiology Hyperlipidemia Obesity, Obstructive sleep apnea, with home CPAP Generalized anxiety disorder Remote ex-smoker Plan Continue aspirin and Plavix Continue metoprolol Continue IV heparin Continue Decadron Titrate oxygen flow to maintain a saturation above 90% Will given Mucinex DM for cough and congestion twice a day Placed on Symbicort 2 puffs twice day and albuterol HFA 4 times a day. Awaiting cardiology consultation We'll check inflammatory markers including LDH and CRP We'll continue to follow
--- NOTE | 2023-08-19 13:02 | P.HPIM ---
History of Present Illness H&P Date: 08/19/23 Chief Complaint: Shortness of breath * 83-year-old gentleman with past medical history significant for CABG, coronary artery disease, congestive heart failure, COPD, obstructive sleep apnea with use of CPAP, history of aortic stenosis, hypertension, with recent hospitalization for non-ST elevated IL. Patient underwent cardiac catheterization on 08/09/23. During previous hospitalization no revascularization was needed and medical management was recommended * Patient presents with shortness of breath, states symptoms have been worse for the last 10 days. Patient did complain of associated fever, cough, chills, shortness of breath and intermittent chest pain * Workup initiated in ER included a CBC which were WBC 6.7 hemoglobin 13.4 platelet 147 * Serum chemistry obtained sodium 133 potassium 4 chloride 21. 19 creatinine 0.89 * Initial troponin obtained 1.67, follow-up 4.240 * N-terminal proBNP 498 * Patient tested positive for Covid 19, negative for influenza and RSV * Patient was placed on 3 L of oxygen, chest x-ray obtained did show fluid overload * EKG obtained in ER shows sinus rhythm with ST segment depression in 8 noted in anterolateral leads * He was started on Covid protocol as well as protocol for ACS REVIEW OF SYSTEMS: Chest pain, shortness of breath, cough CONSTITUTIONAL: No fever, no malaise, no fatigue. HEENT: No recent visual problems or hearing problems. Denied any sore throat. CARDIOVASCULAR: No chest pain, orthopnea, PND, no palpitations, no syncope. PULMONARY: No shortness of breath, no cough, no hemoptysis. GASTROINTESTINAL: No diarrhea, no nausea, no vomiting, no abdominal pain. NEUROLOGICAL: No headaches, no weakness, no numbness. HEMATOLOGICAL: Denies any bleeding or petechiae. GENITOURINARY: Denies any burning micturition, frequency, or urgency. MUSCULOSKELETAL/RHEUMATOLOGICAL: Denies any joint pain, swelling, or any muscle pain. ENDOCRINE: Denies any polyuria or polydipsia. PHYSICAL EXAMINATION: GENERAL: The patient is alert and oriented x3, ill appearance, nasal cannula in place HEENT: Pupils are round and equally reacting to light. EOMI. CARDIOVASCULAR: S1 and S2 present. No murmurs, rubs, or gallops. PULMONARY: Decreased breath sounds bilaterally rhonchi audible ABDOMEN: Soft, nontender, nondistended, normoactive bowel sounds. No palpable organomegaly. MUSCULOSKELETAL: No joint swelling or deformity. EXTREMITIES: No cyanosis, clubbing, or pedal edema. NEUROLOGICAL: Gross neurological examination did not reveal any focal deficits. SKIN: No rashes. Past Medical History Past Medical History: Coronary Artery Disease (CAD), Heart Failure, COPD, Hyperlipidemia, Sleep Apnea/CPAP/BIPAP Additional Past Medical History / Comment(s): COPD, obesity, coronary artery disease with previous bypass surgery, cataracts, hiatal hernia, obstructive sleep apnea with CPAP therapy. 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 Mother History Unknown: Yes Family Medical History: CVA/TIA Additional Family Medical History / Comment(s): at age 99 3/4 from a stoke Medications and Allergies Home Medications Medication Instructions Recorded Confirmed Type Ezetimibe [Zetia] 10 mg PO DAILY 02/13/16 08/19/23 History Nitroglycerin Sl Tabs [Nitrostat] 0.4 mg SL Q5M PRN 06/22/16 08/19/23 History clonazePAM [KlonoPIN] 0.5 mg PO DAILY PRN 06/22/16 08/19/23 History Clopidogrel [Plavix] 75 mg PO HS 10/20/19 08/19/23 History Montelukast Sodium [Singulair] 10 mg PO DAILY 06/22/20 08/19/23 History DULoxetine HCL [Cymbalta] 60 mg PO DAILY 07/19/21 08/19/23 History Fluticasone/Umeclidin/Vilanter 1 puff INHALATION RT-DAILY 03/06/22 08/19/23 History [Walker Schmid 100-62.5-25] Albuterol Inhaler [Ventolin Hfa 2 puff INHALATION RT-QID PRN 02/23/23 08/19/23 History Inhaler] Ipratropium-Albuterol Nebulize 3 ml INHALATION RT-QID PRN #20 each 02/25/23 08/19/23 Rx [Duoneb 0.5 mg-3 mg/3 ml Soln] Donepezil [Aricept] 5 mg PO BID 05/06/23 08/19/23 History predniSONE 5 mg PO DAILY 05/06/23 08/19/23 History Aspirin 81 mg PO DAILY #30 tab 05/10/23 08/19/23 Rx Atorvastatin [Lipitor] 40 mg PO DAILY #30 tab 05/10/23 08/19/23 Rx Ipratropium-Albuterol Nebulize 3 ml INHALATION RT-QID each 05/10/23 08/19/23 Rx [Duoneb 0.5 mg-3 mg/3 ml Soln] Isosorbide Mononitrate ER [Imdur] 30 mg PO DAILY #30 tab 05/10/23 08/19/23 Rx Metoprolol Tartrate [Lopressor] 25 mg PO BID #60 tab 05/10/23 08/19/23 Rx Torsemide [Demadex] 10 mg PO DAILY 30 Days #15 tab 05/10/23 08/19/23 Rx lisinopriL [Zestril] 5 mg PO DAILY #30 tab 05/10/23 08/19/23 Rx Pantoprazole [Protonix] 40 mg PO DAILY #30 tab 05/12/23 08/19/23 Rx polyethylene glycoL 3350 [Miralax] 17 gm PO DAILY 08/06/23 08/19/23 History Acetaminophen Tab [Tylenol Tab] 500 mg PO BID 08/19/23 08/19/23 History Allergies Allergy/AdvReac Type Severity Reaction Status Date / Time No Known Allergies Allergy Verified 08/19/23 08:24 Physical Exam Vitals: Vital Signs Temp Pulse Resp BP Pulse Ox 08/19/23 08:16 100 08/19/23 07:44 73 18 124/66 100 08/19/23 07:00 73 20 115/60 99 08/19/23 05:00 80 24 106/59 98 08/19/23 04:09 76 08/19/23 04:00 80 22 99/44 98 08/19/23 03:59 78 08/19/23 02:00 77 24 110/68 93 L 08/19/23 01:23 92 08/19/23 01:12 88 08/18/23 23:59 99.7 F H 101 H 20 136/87 92 L Intake and Output 08/18/23 08/19/23 08/19/23 22:59 06:59 14:59 Other: Weight 95.254 kg Results CBC & Chem 7: 08/19/23 00:58 08/19/23 09:04 Labs: Abnormal Lab Results - Last 24 Hours (Table) 08/19/23 08/19/23 08/19/23 Range/Units 00:58 00:58 00:58 RBC 4.15 L (4.30-5.90) m/uL Plt Count 147 L (150-450) k/uL Lymphocytes # 0.7 L (1.0-4.8) k/uL Sodium 133 L (137-145) mmol/L Carbon Dioxide 21 L (22-30) mmol/L Glucose 125 H (74-99) mg/dL Troponin I 1.670 H* (0.000-0.034) ng/mL SARS-CoV-2 (PCR) (Not Detectd) 08/19/23 08/19/23 Range/Units 03:30 05:00 RBC (4.30-5.90) m/uL Plt Count (150-450) k/uL Lymphocytes # (1.0-4.8) k/uL Sodium (137-145) mmol/L Carbon Dioxide (22-30) mmol/L Glucose (74-99) mg/dL Troponin I 4.240 H* (0.000-0.034) ng/mL SARS-CoV-2 (PCR) Detected A (Not Detectd) Assessment and Plan Assessment: Assessment and plan * Non-ST elevated IL with history of coronary artery disease and CABG * Acute hypoxic respiratory failure with Covid 19 while pneumonia * Acute exacerbation of congestive heart failure diastolic dysfunction * Severe aortic stenosis with peak gradient of 50 mm, mean gradient of 37 mm * Acute exacerbation of COPD * History of cognitive impairment * In regards to elevated troponin, chest pain, shortness of breath, no numbness elevated IL continue IV heparin, serial troponins ordered, continue patient on telemetry monitoring, cardiology consulted continue aspirin and Plavix * In regards to congestive heart failure/valvular heart disease with aortic stenosis, echocardiogram completed in July 2023 shows preserved ejection fraction severe aortic stenosis noted, continue patient on IV Lasix * In regards to Covid 19 Viral pneumonia, pulmonary medicine consulted continue on breathing treatments started on IV dexamethasone, continue Mucinex * In regards to COPD exacerbation continue breathing treatments, steroids. Prognosis is guarded secondary to multiple comorbidities * In regards to impaired cognition continue home medication including donepezil, continue with frequent orientation * Heparin as this medication needs close monitoring, monitoring for bleeding as well as PT/INR * CODE STATUS is full code Time with Patient: Greater than 30
[2023-08-19] MEDS: guaiFENesin 600 MG TABLET.ER PO SCH ×2 (14:40→21:37)
[2023-08-19] MEDS: ACETAMINOPHEN TAB 325 MG TAB PO PRN (21:35)
[2023-08-19] MEDS: DOXYCYCLINE 100 MG CAP PO SCH (21:35)
[2023-08-20] MEDS: HEPARIN SOD,PORK IN 0.45% NACL 25,000 UNIT in 0.45% NACL 1 250ML.BAG IV SCH (04:04)
--- NOTE | 2023-08-20 07:01 | XR ---
EXAMINATION TYPE: XR chest 1V DATE OF EXAM: 08/20/2023 COMPARISON: 08/19/2023 HISTORY: 83-year-old male pneumonia TECHNIQUE: Single frontal view of the chest is obtained. FINDINGS: Median sternotomy wires and postoperative clips. Heart borderline in size. Diffuse interst itial opacities persist. IMPRESSION: Ongoing interstitial infiltrates, consider mild interstitial pulmonary edema or atypical pneumonias.
[2023-08-20] MEDS: ALBUTEROL HFA INHALER INHALATION PRN ×3 (08:32→20:57)
[2023-08-20] MEDS: SYMBICORT 80-4.5 MCG INHALER INHALATION SCH ×2 (08:32→20:57)
[2023-08-20] MEDS: ASPIRIN 81 MG PO SCH (09:45)
[2023-08-20] MEDS: DULoxetine HCL 60 MG CAPSULE.DR PO SCH (09:46)
[2023-08-20] MEDS: ATORVASTATIN 40 MG TAB PO SCH (09:46)
[2023-08-20] MEDS: EZETIMIBE 10 MG TAB PO SCH (09:46)
[2023-08-20] MEDS: DOXYCYCLINE 100 MG CAP PO SCH ×2 (09:46→21:56)
[2023-08-20] MEDS: ISOSORBIDE MONONITRATE ER 30 MG TAB.ER.24H PO SCH (09:46)
[2023-08-20] MEDS: METOPROLOL TARTRATE 25 MG TAB PO SCH ×2 (09:47→20:40)
[2023-08-20] MEDS: DONEPEZIL 5 MG TAB PO SCH ×2 (09:47→21:56)
[2023-08-20] MEDS: guaiFENesin 600 MG TABLET.ER PO SCH ×2 (09:47→20:40)
[2023-08-20] MEDS: MONTELUKAST 10 MG TAB PO SCH (09:47)
[2023-08-20] MEDS: DEXAMETHASONE SOD PHOSPHATE 10 MG/ML 1 ML VIAL IV SCH (09:48)
[2023-08-20] MEDS: PANTOPRAZOLE 40 MG/10 ML VIAL IV SCH (09:49)
[2023-08-20] MEDS: FUROSEMIDE 10 MG/ML 4 ML VIAL IV SCH (09:49)
--- NOTE | 2023-08-20 10:49 | CA ---
Transthoracic Echo Report Name: Demetrio Cordero Age: 83 Gender: M : 1940 Exam Date: 08/20/2023 09:54 Exam Location: [facility] Ht (in): 68 Wt (lb): 210 Ordering Physician: Deanna Bianchi Attending/Referring Phys: [id number], Tash Vice President Payer Darshan Rai Procedure CPT: Indications: LV function, hx CABG, severe Cardiac Hx: Technical Quality: Technically difficult study Contrast 1: Definity Total Dose (mL): 2 Contrast 2: Total Dose (mL): MEASUREMENTS (Male / Female) Normal Values 2D ECHO LV Diastolic Diameter PLAX 4.5 cm 4.2 - 5.9 / 3.9 - 5.3 cm LV Systolic Diameter PLAX 3.5 cm IVS Diastolic Thickness 1.4 cm 0.6 - 1.0 / 0.6 - 0.9 cm LVPW Diastolic Thickness 1.3 cm 0.6 - 1.0 / 0.6 - 0.9 cm LV Relative Wall Thickness 0.6 RV Internal Dim ED PLAX 2.7 cm LA Volume 45.6 cm??? 18 - 58 / 22 - 52 cm??? LA Volume Index 21.0 cm???/m??? 16 - 28 cm???/m??? FINDINGS Left Ventricle Normal LV size. Mild to moderate concentric LVH. Left ventricular ejection fraction is estimated at _45-50_ %. Right Ventricle Right Atrium Left Atrium Mitral Valve Aortic Valve Tricuspid Valve Pulmonic Valve Pericardium Aorta CONCLUSIONS Mildly impaired LV function with an EF between 45-50% Previewed by: Dr. Gorge Bui MD (Electronically Signed) Final Date: 20 August 2023 10:48
--- NOTE | 2023-08-20 12:14 | P.PN ---
Subjective Progress Note Date: 08/20/23 his is a pleasant 82-year-old male patient with a history of oxygen and prednisone dependent COPD, coronary artery disease status post CABG and subsequent PCI, congestive heart failure, hyperlipidemia, generalized anxiety disorder, obesity, obstructive sleep apnea on CPAP. He also has moderate degree of aortic stenosis. Most recent coronary intervention was done in April 2023 and he underwent a stenting to SVG to OM. He does follow with Dr. Ortega in the office for management of his COPD. Patient presented to the emergency room yesterday evening complaining of shortness of breath and he did not have any significant sputum production. The cough was quite vigorous. He has not received any vaccination for Covid 19. The patient came into the emergency tested positive for Covid 19. The chest exit showed increased interstitial markings bilaterally. No airspace disease. No consolidation. No evidence of any acute pneumonia. The white cell count at 6.7 with a hemoglobin of 13.4. The troponins peaked at 4.2. He denies having any chest pain. Is known to have coronary artery disease and he has undergone recent coronary intervention and stenting. He is free of any chest pain for now. The rest of the viral screen came back negative. His proBNP level is at 498. His BUN is at 19 with a creatinine of 0.89. Normal coagulation profile. He is currently on 2 L of oxygen by nasal cannula. His EKG showing a sinus rhythm with a bundle branch block pattern essentially a right bundle branch block pattern. The patient is currently on aspirin. The patient is also on metoprolol 25 mg twice a day. He was started on IV heparin. He is also on Plavix. The rest of the home medications have been discontinued. He was also started on Decadron 6 mg IV every 24 hours. Cardiology consultation is in progress regarding these acute non-ST segment elevation myocardial infarction. On today's evaluation of 08/20/2023, the patient is feeling good. No new complaints. No interval worsening shortness of breath. He is on oxygen 2 L/m nasal cannula. Repeat chest x-ray was done and it showed persistent mild interstitial infiltrates bilaterally consistent with Covid 19 related pneumonia. Echocardiogram was done and the patient was found to have a preserved LV function with an ejection fraction of 45%. This was a limited echocardiogram. The patient is free of any chest pain. The BUN is at 17 with a creatinine of 0.8 and sodium levels of 136. Troponins peaked at 4.2. He has been on IV heparin and his PTT is at 62.8. He remains on Decadron. There is on aspirin. There is also on Lasix 40 mg IV every 12 hours. Is on Symbicort as maintenance 2 puffs twice a day, Advair HFA 4 times a day, he is also on Plavix. Awaiting further recommendations from cardiology regarding this acute non-ST segment elevation myocardial infarction. As mentioned, there are limited echocardiogram showed a preserved EF of 45-50%. Objective - Vital Signs Vital signs: Vital Signs Temp 98.4 F 08/19/23 22:52 Pulse 67 08/20/23 10:14 Resp 18 08/20/23 10:14 BP 111/66 08/20/23 10:14 Pulse Ox 96 08/20/23 10:14 FiO2 Intake & Output 08/19/23 08/20/23 08/20/23 18:59 06:59 18:59 Intake Total 244.833 Balance 244.833 Intake: Intake, IV Titration 244.833 Amount Heparin Sod,Pork in 0.45% 244.833 NaCl 25,000 unit In 0.45 % NaCl 1 250ml.bag @ 10. 4982 UNITS/KG/HR 10 mls/ hr IV .Q24H [facility] Rx#: [id number] Other: # Voids 1 # Bowel Movements 1 - Exam GENERAL EXAM: Alert, 83-year-old white male, comfortable in no apparent distress. The patient has been weaned down to 2L oxygen HEAD: Normocephalic and atraumatic EYES: Normal reaction of pupils, equal size. NOSE: Clear with pink turbinates. THROAT: No erythema or exudates. NECK: No masses, no JVD. CHEST: No chest wall deformity. LUNGS: Equal air entry with bibasilar inspiratory crackles and minimal expiratory wheezes throughout. No conversational dyspnea or accessory muscle use.. CVS: S1 and S2 normal with no audible murmur, regular rhythm. No extra heart sounds ABDOMEN: No hepatosplenomegaly, active bowel sounds, no guarding or rigidity. SPINE: No scoliosis or deformity SKIN: No rashes CENTRAL NERVOUS SYSTEM: No focal deficits, tone is normal in all 4 extremities. EXTREMITIES: There is no peripheral edema, clubbing, or cyanosis. Peripheral pulses are intact. - Labs CBC & Chem 7: 08/19/23 00:58 08/19/23 09:04 Assessment and Plan Plan: Acute Covid 19 infection. The patient is nonvaccinated. Symptoms started ap proximately 48 hours ago and the patient is presenting to Hospital because of worsening shortness of breath and cough. Chest x-ray shows no clear evidence of pneumonia. No significant hypoxemia and currently is on 2 L of O2 nasal cannula.clinically stable and chest x-ray showing some limited bibasilar interstitial infiltrates, stable related to Covid 19 infection/pneumonia. Acute non-ST segment elevation myocardial infarction Known history of coronary artery disease, and cardiac catheterization that was done in April 2023 showed cardiac catheterization was done and the patient underwent further intervention with stenting of the SVG to obtuse marginal CHF Most recent echocardiogram from 06/16/2022 shows a preserved left ventricular ejection fraction of 50-55%, with moderately increased LVH, and moderate aortic stenosis. The patient was diabetes and he responded to diuretics and the patient is currently on room air oxygen Moderate degree of aortic stenosis, please refer to the echocardiogram in the cardiac catheterization report Moderate chronic obstructive pulmonary disease, baseline FEV1 72% of predicted. Patient is oxygen dependent and the patient has been utilizing a bit on about treatments 4 times a day [id number] and recently hospitalized for an acute COPD exacerbation Coronary artery disease, with previous CABG and subsequent PCI, followed up by Dr. Vuong from cardiology Hyperlipidemia Obesity, Obstructive sleep apnea, with home CPAP Generalized anxiety disorder Remote ex-smoker Plan Continue aspirin and Plavix Continue metoprolol Continue IV heparin, awaiting further recommendation from cardiology regarding the acute non-ST segment elevation myocardial infarction Continue Decadron Titrate oxygen flow to maintain a saturation above 90% Will given Mucinex DM for cough and congestion twice a day continue Symbicort 2 puffs twice day and albuterol HFA 4 times a day. We'll check inflammatory markers including LDH and CRP We'll continue to follow
[2023-08-20 12:30] LABS: Basophils % (A) 0 %; Eosinophils % (A) 0 %; HCT 38.2 % (39.0-53.0); HGB 12.8 gm/dL (13.0-17.5); Lymphocytes # (A) 0.8 k/uL (1.0-4.8); Lymphocytes % (A) 10 %; MCH 31.7 pg (25.0-35.0); MCHC 33.5 g/dL (31.0-37.0); MCV 94.5 fL (80.0-100.0); Mean Platelet Volume 10.8; Monocytes # (A) 0.5 k/uL (0-1.0); Monocytes % (A) 6 %; Neutrophils # (A) 6.3 k/uL (1.3-7.7); Neutrophils % (A) 82 %; Platelet Count 131 k/uL (150-450); RBC 4.04 m/uL (4.30-5.90); RDW 13.7 % (11.5-15.5); WBC 7.7 k/uL (3.8-10.6)
[2023-08-20 13:15] LABS: Total Bilirubin 0.7 mg/dL (0.2-1.3)
[2023-08-20 13:16] LABS: ALT 28 U/L (4-49); AST 40 U/L (17-59); African American GFR (CKD) 89 (>60 ml/min/1.73 sqM); Albumin 3.8 g/dL (3.5-5.0); Alkaline Phosphatase 80 U/L (38-126); Anion Gap 12 mmol/L; Blood Urea Nitrogen 22 mg/dL (9-20); C Reactive Protein 5.3 mg/dL (<1.0); Calcium 8.7 mg/dL (8.4-10.2); Carbon Dioxide 23 mmol/L (22-30); Chloride 98 mmol/L (98-107); Glucose 130 mg/dL (74-99); LDH 248 U/L (120-246); Magnesium 1.9 mg/dL (1.6-2.3); Non-African American GFR(CKD) 77 (>60 ml/min/1.73 sqM); Phosphorus 4.2 mg/dL (2.5-4.5); Potassium 4.1 mmol/L (3.5-5.1); Sodium 133 mmol/L (137-145); Total Protein 6.3 g/dL (6.3-8.2)
--- NOTE | 2023-08-20 13:35 | P.PN ---
Subjective Progress Note Date: 08/20/23 * 83-year-old gentleman with past medical history significant for CABG, coronary artery disease, congestive heart failure, COPD, obstructive sleep apnea with use of CPAP, history of aortic stenosis, hypertension, with recent hospitalization for non-ST elevated [place]. Patient underwent cardiac catheterization on 08/09/23. During previous hospitalization no revascularization was needed and medical management was recommended * Patient presents with shortness of breath, states symptoms have been worse for the last 10 days. Patient did complain of associated fever, cough, chills, shortness of breath and intermittent chest pain * Workup initiated in ER included a CBC which were WBC 6.7 hemoglobin 13.4 plat elet 147 * Serum chemistry obtained sodium 133 potassium 4 chloride 21. 19 creatinine 0.89 * Initial troponin obtained 1.67, follow-up 4.240 * N-terminal proBNP 498 * Patient tested positive for Covid 19, negative for influenza and RSV * Patient was placed on 3 L of oxygen, chest x-ray obtained did show fluid overload * EKG obtained in ER shows sinus rhythm with ST segment depression in 8 noted in anterolateral leads * He was started on Covid protocol as well as protocol for ACS * 08/20/2023:patient seen and evaluated bedside, patient remains on 3 L of oxygen, blood work reviewed, continue IV heparin, cardiology following, pulmonary medicine following continue current management follow-up on inflam mation marker REVIEW OF SYSTEMS: Chest pain RESOLVED , shortness of breath, cough IMPROVED CONSTITUTIONAL: No fever, no malaise, no fatigue. HEENT: No recent visual problems or hearing problems. Denied any sore throat. CARDIOVASCULAR: No chest pain, orthopnea, PND, no palpitations, no syncope. PULMONARY: No shortness of breath, no cough, no hemoptysis. GASTROINTESTINAL: No diarrhea, no nausea, no vomiting, no abdominal pain. NEUROLOGICAL: No headaches, no weakness, no numbness. HEMATOLOGICAL: Denies any bleeding or petechiae. GENITOURINARY: Denies any burning micturition, frequency, or urgency. MUSCULOSKELETAL/RHEUMATOLOGICAL: Denies any joint pain, swelling, or any muscle pain. ENDOCRINE: Denies any polyuria or polydipsia. PHYSICAL EXAMINATION: GENERAL: The patient is alert and oriented x3, ill appearance, nasal cannula in place HEENT: Pupils are round and equally reacting to light. EOMI. CARDIOVASCULAR: S1 and S2 present. No murmurs, rubs, or gallops. PULMONARY: Decreased breath sounds bilaterally rhonchi audible ABDOMEN: Soft, nontender, nondistended, normoactive bowel sounds. No palpable organomegaly. MUSCULOSKELETAL: No joint swelling or deformity. EXTREMITIES: No cyanosis, clubbing, or pedal edema. NEUROLOGICAL: Gross neurological examination did not reveal any focal deficits. SKIN: No rashes. Objective - Vital Signs Vital signs: Vital Signs Temp 98.4 F 08/19/23 22:52 Pulse 67 08/20/23 10:14 Resp 18 08/20/23 10:14 BP 111/66 08/20/23 10:14 Pulse Ox 96 08/20/23 10:14 FiO2 Intake & Output 08/19/23 08/20/23 08/20/23 18:59 06:59 18:59 Intake Total 244.833 Balance 244.833 Intake: Intake, IV Titration 244.833 Amount Heparin Sod,Pork in 0.45% 244.833 NaCl 25,000 unit In 0.45 % NaCl 1 250ml.bag @ 10. 4982 UNITS/KG/HR 10 mls/ hr IV .Q24H [facility] Rx#: [id number] Other: # Voids 1 # Bowel Movements 1 - Labs CBC & Chem 7: 08/20/23 12:05 08/20/23 12:05 Labs: Abnormal Lab Results - Last 24 Hours (Table) 08/20/23 08/20/23 08/20/23 Range/Units 12: 12:05 12:05 RBC 4.04 L (4.30-5.90) m/uL Hgb 12.8 L (13.0-17.5) gm/dL Hct 38.2 L (39.0-53.0) % Plt Count 131 L (150-450) k/uL Lymphocytes # 0.8 L (1.0-4.8) k/uL APTT 43.4 H (22.0-30.0) sec Sodium 133 L (137-145) mmol/L BUN 22 H (9-20) mg/dL Glucose 130 H (74-99) mg/dL Lactate Dehydrogenase 248 H (120-246) U/L C-Reactive Protein 5.3 H (<1.0) mg/dL Assessment and Plan Assessment: Assessment and plan * Non-ST elevated [place] with history of coronary artery disease and CABG * Acute hypoxic respiratory failure with Covid 19 while pneumonia * Acute exacerbation of congestive heart failure diastolic dysfunction * Severe aortic stenosis with peak gradient of 50 mm, mean gradient of 37 mm * Acute exacerbation of COPD with FEV1 72% oxygen dependent * Struck to sleep apnea with home CPAP * History of cognitive impairment * In regards to elevated troponin, chest pain, shortness of breath,NSTEMI continue IV heparin, serial troponins elevated, continue patient on telemetry monitoring, cardiology consulted continue aspirin and Plavix * In regards to congestive heart failure/valvular heart disease with aortic stenosis, echocardiogram completed in July 2023 shows preserved ejection fraction severe aortic stenosis noted, continue patient on IV Lasix, limited echo shows ejection fraction of 45-50% * In regards to Covid 19 Viral pneumonia, pulmonary medicine consulted continue on breathing treatments started on IV dexamethasone, continue Mucinex * In regards to COPD exacerbation continue breathing treatments, steroids. Prognosis is guarded secondary to multiple comorbidities * In regards to impaired cognition continue home medication including donepezil, continue with frequent orientation * Heparin as this medication needs close monitoring, monitoring for bleeding as well as PT/INR * CODE STATUS is full code
--- NOTE | 2023-08-20 13:48 | P.PN ---
Subjective Progress Note Date: 08/20/23 HISTORY OF PRESENT ILLNESS: This is a 83-year-old male with a past medical history significant for coronary artery disease with previous CABG and subsequent stenting, hypertension, h yperlipidemia, COPD, and aortic stenosis. 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 Vuong. We have been asked to see the patient in consultation for elevated troponins. Patient examined at the bedside in the emergency room. The patient presented to the hospital with a chief complaint of shortness of breath. The patient has a frequent congested cough at the time of examination. He denies any chest pain or pressure. He reports mild nausea but no vomiting. He denies any dizziness or lightheadedness. Patient was found to be positive for Covid 19. The patient was also found to have elevated troponins and was started on IV heparin. * EKG reveals EKG reveals sinus mechanism with right bundle branch block. * Chest xray interstitial edema concerning for fluid overload * Laboratory data: Troponin 1.670. 4.240. 3.170. * Current home cardiac medications include Plavix 75 mg at night, lisinopril 5 mg daily, Demadex 10 mg daily, Imdur 30 mg daily, Zetia 10 mg daily, at orvastatin 40 mg daily, and aspirin 81 mg daily * Most recent echocardiogram obtained in July 2023 revealed ejection fraction 50-55%, mild to moderate mitral regurgitation, moderate to severe aortic stenosis with peak gradient of 60 mmHg and mean gradient of 37 mmHg, and mild TR * Cardiac catheterization history: 08/08/2023 revealing severe coronary artery disease, [id number] nonobstructive disease involving the RCA, patent HERNANDEZ to LAD and patent SVG to OM, left circumflex proximally is occluded and LAD proximally is occluded. Medical management was recommended. 08/20 Patient is seen today in the emergency center waiting for bed on the cardiac stepdown unit. He states his breathing is a little bit better and has less cough. He denies having any chest pain no dizziness. He is on IV heparin and IV Lasix. Blood pressure 111/66, heart rate in 60s and 70s, pulse ox 96% on room air. Afebrile. WBC 7.7, hemoglobin 12.8, platelets of 131. Sodium 133, BUN 22, creatinine 0.92 and potassium 4.1. PHYSICAL EXAM: VITAL SIGNS: Reviewed. GENERAL: Well-developed in no acute distress. HEENT: Head is normocephalic. Pupils are equal, round. Sclerae anicteric. Mucous membranes of the mouth are moist. Neck supple. No JVD or thyromegaly LUNGS: Respirations even and unlabored. Lungs with expiratory wheezing and crackles noted. Frequent coughing noted during examination HEART: Regular rate and rhythm. S1 and S2 heard. Systolic murmur noted with diminished S2. EXTREMITIES: No clubbing or cyanosis. Peripheral pulses intact. Trace lower extremity edema NEUROLOGIC: Awake and alert. Oriented x 3. ASSESSMENT: Covid 19 Elevated troponins due to type II AR secondary to infection. Patient had recent cardiac catheterization showing no significant obstructive disease. Acute on chronic heart failure with preserved EF, clinically volume overloaded, despite normal BNP Moderate to severe aortic stenosis Coronary artery disease with previous CABG and subsequent stenting of SVG to April 2023 Hypertension Hyperlipidemia COPD PLAN: Obtain limited echo to assess LV function and aortic stenosis Discontinue IV heparin Discontinue IV Lasix Start patient on Demadex 10 mg daily oral Daily weights, accurate I&O, and monitoring of kidney function Continue dual anti- platelet therapy secondary to stenting in April 2023 Continue atorvastatin 40 mg daily Hold lisinopril secondary to low BP Nurse practitioner note has been reviewed by physician. Signing provider agrees with the documented findings, assessment, and plan of care. Objective - Vital Signs Vital signs: Vital Signs Temp 98.4 F 08/19/23 22:52 Pulse 70 08/20/23 06:24 Resp 18 08/20/23 06:24 BP 118/80 08/20/23 06:24 Pulse Ox 98 08/20/23 06:24 FiO2 Intake & Output 08/19/23 08/20/23 08/20/23 18:59 06:59 18:59 Intake Total 244.833 Balance 244.833 Intake: Intake, IV Titration 244.833 Amount Heparin Sod,Pork in 0.45% 244.833 NaCl 25,000 unit In 0.45 % NaCl 1 250ml.bag @ 10. 4982 UNITS/KG/HR 10 mls/ hr IV .Q24H [facility] Rx#: [id number] Other: # Voids 1 # Bowel Movements 1 - Labs CBC & Chem 7: 08/20/23 12:05 08/20/23 12:05 Labs: Abnormal Lab Results - Last 24 Hours (Table) 08/19/23 08/19/23 08/19/23 Range/Units 08:25 09:04 09:04 APTT 62.8 H (22.0-30.0) sec Sodium 136 L (137-145) mmol/L Carbon Dioxide 18 L (22-30) mmol/L Glucose 109 H (74-99) mg/dL Troponin I 3.170 H* (0.000-0.034) ng/mL
[2023-08-20] MEDS: CLOPIDOGREL 75 MG TAB PO SCH (20:40)
[2023-08-20] MEDS: ACETAMINOPHEN TAB 325 MG TAB PO PRN (23:21)
[2023-08-21] MEDS: ACETAMINOPHEN TAB 325 MG TAB PO PRN ×2 (03:35→10:38)
[2023-08-21 04:30] VITALS: PULSE 64
[2023-08-21] MEDS: ALBUTEROL HFA INHALER INHALATION PRN ×2 (08:56→12:25)
[2023-08-21] MEDS: SYMBICORT 80-4.5 MCG INHALER INHALATION SCH (08:56)
[2023-08-21] MEDS ORDERED: TORSEMIDE 20 MG TAB PO SCH (09:00)
[2023-08-21 10:35] LABS: HCT 36.2 % (39.0-53.0); HGB 12.4 gm/dL (13.0-17.5); MCH 32.2 pg (25.0-35.0); MCHC 34.3 g/dL (31.0-37.0); MCV 93.9 fL (80.0-100.0); Mean Platelet Volume 10.4; Platelet Count 143 k/uL (150-450); RBC 3.86 m/uL (4.30-5.90); RDW 13.2 % (11.5-15.5); WBC 8.7 k/uL (3.8-10.6)
[2023-08-21] MEDS: PANTOPRAZOLE 40 MG/10 ML VIAL IV SCH (10:35)
[2023-08-21] MEDS: ASPIRIN 81 MG PO SCH (10:35)
[2023-08-21] MEDS: ATORVASTATIN 40 MG TAB PO SCH (10:35)
[2023-08-21] MEDS: DONEPEZIL 5 MG TAB PO SCH (10:36)
[2023-08-21] MEDS: DULoxetine HCL 60 MG CAPSULE.DR PO SCH (10:36)
[2023-08-21] MEDS: EZETIMIBE 10 MG TAB PO SCH (10:36)
[2023-08-21] MEDS: DOXYCYCLINE 100 MG CAP PO SCH (10:36)
[2023-08-21] MEDS: guaiFENesin 600 MG TABLET.ER PO SCH (10:36)
[2023-08-21] MEDS: DEXAMETHASONE SOD PHOSPHATE 10 MG/ML 1 ML VIAL IV SCH (10:37)
[2023-08-21] MEDS: METOPROLOL TARTRATE 25 MG TAB PO SCH (10:37)
[2023-08-21] MEDS: ISOSORBIDE MONONITRATE ER 30 MG TAB.ER.24H PO SCH (10:37)
[2023-08-21] MEDS: MONTELUKAST 10 MG TAB PO SCH (10:37)
[2023-08-21 10:46] LABS: African American GFR (CKD) 80 (>60 ml/min/1.73 sqM); Anion Gap 14 mmol/L; Blood Urea Nitrogen 24 mg/dL (9-20); Calcium 8.9 mg/dL (8.4-10.2); Carbon Dioxide 21 mmol/L (22-30); Chloride 96 mmol/L (98-107); Glucose 111 mg/dL (74-99); Non-African American GFR(CKD) 69 (>60 ml/min/1.73 sqM); Potassium 3.9 mmol/L (3.5-5.1); Sodium 131 mmol/L (137-145)
[2023-08-21 10:57] LABS: C Reactive Protein 3.1 mg/dL (<1.0)
--- NOTE | 2023-08-21 11:11 | P.PN ---
Subjective Progress Note Date: 08/21/23 his is a pleasant 82-year-old male patient with a history of oxygen and prednisone dependent COPD, coronary artery disease status post CABG and subsequent PCI, congestive heart failure, hyperlipidemia, generalized anxiety disorder, obesity, obstructive sleep apnea on CPAP. He also has moderate degree of aortic stenosis. Most recent coronary intervention was done in April 2023 and he underwent a stenting to SVG to OM. He does follow with Dr. Ortega in the office for management of his COPD. Patient presented to the emergency room yesterday evening complaining of shortness of breath and he did not have any significant sputum production. The cough was quite vigorous. He has not received any vaccination for Covid 19. The patient came into the emergency tested positive for Covid 19. The chest exit showed increased interstitial markings bilaterally. No airspace disease. No consolidation. No evidence of any acute pneumonia. The white cell count at 6.7 with a hemoglobin of 13.4. The troponins peaked at 4.2. He denies having any chest pain. Is known to have coronary artery disease and he has undergone recent coronary intervention and stenting. He is free of any chest pain for now. The rest of the viral screen came back negative. His proBNP level is at 498. His BUN is at 19 with a creatinine of 0.89. Normal coagulation profile. He is currently on 2 L of oxygen by nasal cannula. His EKG showing a sinus rhythm with a bundle branch block pattern essentially a right bundle branch block pattern. The patient is currently on aspirin. The patient is also on metoprolol 25 mg twice a day. He was started on IV heparin. He is also on Plavix. The rest of the home medications have been discontinued. He was also started on Decadron 6 mg IV every 24 hours. Cardiology consultation is in progress regarding these acute non-ST segment elevation myocardial infarction. On today's evaluation of 08/20/2023, the patient is feeling good. No new complaints. No interval worsening shortness of breath. He is on oxygen 2 L/m nasal cannula. Repeat chest x-ray was done and it showed persistent mild interstitial infiltrates bilaterally consistent with Covid 19 related pneumonia. Echocardiogram was done and the patient was found to have a preserved LV function with an ejection fraction of 45%. This was a limited echocardiogram. The patient is free of any chest pain. The BUN is at 17 with a creatinine of 0.8 and sodium levels of 136. Troponins peaked at 4.2. He has been on IV heparin and his PTT is at 62.8. He remains on Decadron. There is on aspirin. There is also on Lasix 40 mg IV every 12 hours. Is on Symbicort as maintenance 2 puffs twice a day, Advair HFA 4 times a day, he is also on Plavix. Awaiting further recommendations from cardiology regarding this acute non-ST segment elevation myocardial infarction. As mentioned, there are limited echocardiogram showed a preserved EF of 45-50%. Today's evaluation of 08/21/2023, the patient is a specific complaints. The patient is currently on room air oxygen. Ambulating in his room independently. He doesn't have any chest pain. No respiratory difficulties. No cough or sputum production. He is still on Decadron.The white cell count of 8.7 with a hemoglobin of 12.4 and a platelet count of 143, BUN is at 24 with a creatinine of 1.01 and a sodium level of 131. The patient underwent a recent cardiac catheterization and stents to SVG was normal and patent and the patient also had a patent HERNANDEZ to LAD. Objective - Vital Signs Vital signs: Vital Signs Temp 97.4 F L 08/21/23 04:00 Pulse 64 08/21/23 04:00 Resp 18 08/21/23 04:00 BP 107/59 08/21/23 04:00 Pulse Ox 93 L 08/21/23 04:00 FiO2 Intake & Output 08/20/23 08/21/23 08/21/23 18:59 06:59 18:59 Intake Total 96.833 118 Balance 96.833 118 Weight 90.3 kg Intake: Intake, IV Titration 96.833 Amount Heparin Sod,Pork in 0.45% 96.833 NaCl 25,000 unit In 0.45 % NaCl 1 250ml.bag @ 10. 4982 UNITS/KG/HR 10 mls/ hr IV .Q24H [facility] Rx#: [id number] Oral 118 Other: Voiding Method Toilet - Exam GENERAL EXAM: Alert, 83-year-old white male, comfortable in no apparent distress. The patient has been weaned down to 2L oxygen HEAD: Normocephalic and atraumatic EYES: Normal reaction of pupils, equal size. NOSE: Clear with pink turbinates. THROAT: No erythema or exudates. NECK: No masses, no JVD. CHEST: No chest wall deformity. LUNGS: Equal air entry with bibasilar inspiratory crackles and minimal expiratory wheezes throughout. No conversational dyspnea or accessory muscle use.. CVS: S1 and S2 normal with no audible murmur, regular rhythm. No extra heart sounds ABDOMEN: No hepatosplenomegaly, active bowel sounds, no guarding or rigidity. SPINE: No scoliosis or deformity SKIN: No rashes CENTRAL NERVOUS SYSTEM: No focal deficits, tone is normal in all 4 extremities. EXTREMITIES: There is no peripheral edema, clubbing, or cyanosis. Peripheral pulses are intact. - Labs CBC & Chem 7: 08/21/23 09:54 08/21/23 09:54 Labs: Abnormal Lab Results - Last 24 Hours (Table) 08/20/23 08/20/23 08/20/23 Range/Units 12:05 12:05 12:05 RBC 4.04 L (4.30-5.90) m/uL Hgb 12.8 L (13.0-17.5) gm/dL Hct 38.2 L (39.0-53.0) % Plt Count 131 L (150-450) k/uL Lymphocytes # 0.8 L (1.0-4.8) k/uL APTT 43.4 H (22.0-30.0) sec Sodium 133 L (137-145) mmol/L Chloride (98-107) mmol/L Carbon Dioxide (22-30) mmol/L BUN 22 H (9-20) mg/dL Glucose 130 H (74-99) mg/dL Lactate Dehydrogenase 248 H (120-246) U/L C-Reactive Protein 5.3 H (<1.0) mg/dL 08/20/23 08/21/23 08/21/23 Range/Units 21:13 09:54 09:54 RBC 3.86 L (4.30-5.90) m/uL Hgb 12.4 L (13.0-17.5) gm/dL Hct 36.2 L (39.0-53.0) % Plt Count 143 L (150-450) k/uL Lymphocytes # (1.0-4.8) k/uL APTT 38.6 H (22.0-30.0) sec Sodium 131 L (137-145) mmol/L Chloride 96 L (98-107) mmol/L Carbon Dioxide 21 L (22-30) mmol/L BUN 24 H (9-20) mg/dL Glucose 111 H (74-99) mg/dL Lactate Dehydrogenase (120-246) U/L C-Reactive Protein (<1.0) mg/dL Assessment and Plan Plan: Acute Covid 19 infection. The patient is nonvaccinated. Symptoms started approximately 48 hours ago and the patient is presenting to Hospital because of worsening shortness of breath and cough. Chest x-ray shows no clear evidence of pneumonia. No significant hypoxemia and currently is on 2 L of O2 nasal alireza narayan.clinically stable and chest x-ray showing some limited bibasilar interstitial infiltrates, stable related to Covid 19 infection/pneumonia. Acute non-ST segment elevation myocardial infarction Known history of coronary artery disease, and cardiac catheterization that was done in April 2023 showed cardiac catheterization was done and the patient underwent further intervention with stenting of the SVG to obtuse marginal a subsequent catheterization was done in July 2023 showed patent stent SVG and patent HERNANDEZ to LAD and mild disease involving the RCA CHF Most recent echocardiogram from 07/17/2022 shows a preserved left ventricular ejection fraction of 50-55%, with moderately increased LVH, and moderate aortic stenosis. The patient was diabetes and he responded to diuretics and the patient is currently on room air oxygen Moderate degree of aortic stenosis, please refer to the echocardiogram in the cardiac catheterization report Moderate chronic obstructive pulmonary disease, baseline FEV1 72% of predicted. Patient is oxygen dependent and the patient has been utilizing a bit on about treatments 4 times a day [id number] and recently hospitalized for an acute COPD exacerbation Coronary artery disease, with previous CABG and subsequent PCI, followed up by Dr. Vuong from cardiology Hyperlipidemia Obesity, Obstructive sleep apnea, with home CPAP Generalized anxiety disorder Remote ex-smoker Plan Continue aspirin and Plavix Continue metoprolol Patient was taken off the IV heparin and the most recent cardiac catheterization from July 2023 was noted Continue Decadron Titrate oxygen flow to maintain a saturation above 90% Continue Mucinex for cough continue Symbicort 2 puffs twice day and albuterol HFA 4 times a day. Patient will likely get discharged home today to complete a ten-day course of Decadron. The patient is cleared for discharge from pulmonary standpoint.
--- NOTE | 2023-08-21 11:41 | P.DS ---
Providers Date of admission: 08/19/23 01:39 Expected date of discharge: 08/21/23 Attending physician: Mey Alaniz Consults: 08/19/23 02:42 Consult Physician Urgent Consulting Provider: Niall Laird Consult Reason/Comments: chest pain, Cabg, PCI 05/08, NSTEMI Do you want consulting provider notified?: Yes 08/19/23 08:52 Consult Physician Routine Consulting Provider: Heydi Bhardwaj Consult Reason/Comments: resp failure, covid pneumonia Do you want consulting provider notified?: Yes Primary care physician: Doretha [facility] Course: * 83-year-old gentleman with past medical history significant for CABG, coronary artery disease, congestive heart failure, COPD, obstructive sleep apnea with use of CPAP, history of aortic stenosis, hypertension, with recent hospita lization for non-ST elevated GA. Patient underwent cardiac catheterization on 08/09/23. During previous hospitalization no revascularization was needed and medical management was recommended * Patient presents with shortness of breath, states symptoms have been worse for the last 10 days. Patient did complain of associated fever, cough, chills, shortness of breath and intermittent chest pain * Workup initiated in ER included a CBC which were WBC 6.7 hemoglobin 13.4 platelet 147 * Serum chemistry obtained sodium 133 potassium 4 chloride 21. 19 creatinine 0.89 * Initial troponin obtained 1.67, follow-up 4.240 * N-terminal proBNP 498 * Patient tested positive for Covid 19, negative for influenza and RSV * Patient was placed on 3 L of oxygen, chest x-ray obtained did show fluid overload * EKG obtained in ER shows sinus rhythm with ST segment depression in 8 noted in anterolateral leads * He was started on Covid protocol as well as protocol for ACS * 08/20/2023:patient seen and evaluated bedside, patient remains on 3 L of oxygen, blood work reviewed, continue IV heparin, cardiology following, pulmonary medicine following continue current management follow-up on inflammation marker * 08/21/2023: Patient seen and evaluated bedside, patient ambulating the room on room air, patient alert and oriented 4, breathing has improved. Patient to be walked in the hallway prior to discharge. Patient already on prednisone at home will give prescription for dexamethasone for discharge to complete total 10 day course patient to complete his doxycycline as well, seen by cardiology and they recommended medical management REVIEW OF SYSTEMS: Chest pain RESOLVED , shortness of breath, cough IMPROVED CONSTITUTIONAL: No fever, no malaise, no fatigue. HEENT: No recent visual problems or hearing problems. Denied any sore throat. CARDIOVASCULAR: No chest pain, orthopnea, PND, no palpitations, no syncope. PULMONARY: No shortness of breath, no cough, no hemoptysis. GASTROINTESTINAL: No diarrhea, no nausea, no vomiting, no abdominal pain. NEUROLOGICAL: No headaches, no weakness, no numbness. HEMATOLOGICAL: Denies any bleeding or petechiae. GENITOURINARY: Denies any burning micturition, frequency, or urgency. MUSCULOSKELETAL/RHEUMATOLOGICAL: Denies any joint pain, swelling, or any muscle pain. ENDOCRINE: Denies any polyuria or polydipsia. PHYSICAL EXAMINATION: GENERAL: The patient is alert and oriented x3, nasal cannula in place, appearing well HEENT: Pupils are round and equally reacting to light. EOMI. CARDIOVASCULAR: S1 and S2 present. No murmurs, rubs, or gallops. PULMONARY: Improved breath sounds bilaterally ABDOMEN: Soft, nontender, nondistended, normoactive bowel sounds. No palpable organomegaly. MUSCULOSKELETAL: No joint swelling or deformity. EXTREMITIES: No cyanosis, clubbing, or pedal edema. NEUROLOGICAL: Gross neurological examination did not reveal any focal deficits. SKIN: No rashes. Assessment: Assessment and plan * Non-ST elevated GA with history of coronary artery disease and CABG * Acute hypoxic respiratory failure with Covid 19 while pneumonia * Acute exacerbation of congestive heart failure diastolic dysfunction * Severe aortic stenosis with peak gradient of 50 mm, mean gradient of 37 mm * Acute exacerbation of COPD with FEV1 72% oxygen dependent * Struck to sleep apnea with home CPAP * History of cognitive impairment * In regards to elevated troponin, chest pain, shortness of breath,NSTEMI, patient was on IV heparin, serial troponins elevated, cardiology consulted, recommended medical management, continue Imdur, statin continue aspirin and Plavix * In regards to congestive heart failure/valvular heart disease with aortic stenosis, echocardiogram completed in July 2023 shows preserved ejection fraction severe aortic stenosis noted, limited echo shows ejection fraction of 45-50%. Patient received IV Lasix and her transition back to torsemide * In regards to Covid 19 Viral pneumonia, pulmonary medicine consulted continue on breathing treatments started on IV dexamethasone, continue Mucinex upon discharge given oral dexamethasone * In regards to COPD exacerbation continue breathing treatments, steroids. Continue home inhalers * Patient does have oxygen at home plan to discharge home stable condition Patient Condition at Discharge: Fair Plan - Discharge Summary Discharge Rx Participant: Yes New Discharge Prescriptions: New guaiFENesin [Mucinex] 1,200 mg PO Q12HR 5 Days #10 tab Doxycycline [Vibramycin] 100 mg PO BID 2 Days #3 cap Continue Ezetimibe [Zetia] 10 mg PO DAILY clonazePAM [KlonoPIN] 0.5 mg PO DAILY PRN PRN Reason: Anxiety Nitroglycerin Sl Tabs [Nitrostat] 0.4 mg SL Q5M PRN PRN Reason: Chest Pain Clopidogrel [Plavix] 75 mg PO HS Montelukast Sodium [Singulair] 10 mg PO DAILY DULoxetine HCL [Cymbalta] 60 mg PO DAILY Fluticasone/Umeclidin/Vilanter [Trelegy Ellipta 100-62.5-25] 1 puff INHALATION RT-DAILY Albuterol Inhaler [Ventolin Hfa Inhaler] 2 puff INHALATION RT-QID PRN PRN Reason: Shortness Of Breath Ipratropium-Albuterol Nebulize [Duoneb 0.5 mg-3 mg/3 ml Soln] 3 ml INHALATION RT-QID PRN #20 each PRN Reason: Shortness Of Breath Aspirin 81 mg PO DAILY #30 tab Torsemide [Demadex] 10 mg PO DAILY 30 Days #15 tab Ipratropium-Albuterol Nebulize [Duoneb 0.5 mg-3 mg/3 ml Soln] 3 ml INHALATION RT-QID each Isosorbide Mononitrate ER [Imdur] 30 mg PO DAILY #30 tab Metoprolol Tartrate [Lopressor] 25 mg PO BID #60 tab lisinopriL [Zestril] 5 mg PO DAILY #30 tab polyethylene glycoL 3350 [Miralax] 17 gm PO DAILY Donepezil [Aricept] 5 mg PO BID predniSONE 5 mg PO DAILY Atorvastatin [Lipitor] 40 mg PO DAILY #30 tab Pantoprazole [Protonix] 40 mg PO DAILY #30 tab Acetaminophen Tab [Tylenol] 500 mg PO BID Discharge Medication List Ezetimibe [Zetia] 10 mg PO DAILY 02/13/16 [History] Nitroglycerin Sl Tabs [Nitrostat] 0.4 mg SL Q5M PRN 06/22/16 [History] clonazePAM [KlonoPIN] 0.5 mg PO DAILY PRN 06/22/16 [History] Clopidogrel [Plavix] 75 mg PO HS 10/20/19 [History] Montelukast Sodium [Singulair] 10 mg PO DAILY 06/22/20 [History] DULoxetine HCL [Cymbalta] 60 mg PO DAILY 07/19/21 [History] Fluticasone/Umeclidin/Vilanter [Trelegy Ellipta 100-62.5-25] 1 puff INHALATION RT-DAILY 03/06/22 [History] Albuterol Inhaler [Ventolin Hfa Inhaler] 2 puff INHALATION RT-QID PRN 02/23/23 [History] Ipratropium-Albuterol Nebulize [Duoneb 0.5 mg-3 mg/3 ml Soln] 3 ml INHALATION RT-QID PRN #20 each 02/25/23 [Rx] Donepezil [Aricept] 5 mg PO BID 05/06/23 [History] Aspirin 81 mg PO DAILY #30 tab 05/10/23 [Rx] Atorvastatin [Lipitor] 40 mg PO DAILY #30 tab 05/10/23 [Rx] Ipratropium-Albuterol Nebulize [Duoneb 0.5 mg-3 mg/3 ml Soln] 3 ml INHALATION RT-QID each 05/10/23 [Rx] Isosorbide Mononitrate ER [Imdur] 30 mg PO DAILY #30 tab 05/10/23 [Rx] Metoprolol Tartrate [Lopressor] 25 mg PO BID #60 tab 05/10/23 [Rx] Torsemide [Demadex] 10 mg PO DAILY 30 Days #15 tab 05/10/23 [Rx] lisinopriL [Zestril] 5 mg PO DAILY #30 tab 05/10/23 [Rx] Pantoprazole [Protonix] 40 mg PO DAILY #30 tab 05/12/23 [Rx] polyethylene glycoL 3350 [Miralax] 17 gm PO DAILY 08/06/23 [History] Acetaminophen Tab [Tylenol] 500 mg PO BID 08/19/23 [History] Doxycycline [Vibramycin] 100 mg PO BID 2 Days #3 cap 08/21/23 [Rx] dexAMETHasone [Decadron] 6 mg PO DAILY 8 Days #8 tablet 08/21/23 [Rx] guaiFENesin [Mucinex] 1,200 mg PO Q12HR 5 Days #10 tab 08/21/23 [Rx] Follow up Appointment(s)/Referral(s): Doretha Rose MD [Primary Care Provider] - 1-2 days [facility], [NON-STAFF] - Discharge Disposition: HOME WITH HOME HEALTH SERVICES
--- NOTE | 2023-08-21 13:17 | P.PN ---
Subjective Progress Note Date: 08/21/23 HISTORY OF PRESENT ILLNESS: This is a 83-year-old male with a past medical history significant for coronary artery disease with previous CABG and subsequent stenting, hypertension, h yperlipidemia, COPD, and aortic stenosis. Patient follows with a homicide detective out of [place], Dr. Vuong. We have been asked to see the patient in consultation for elevated troponins. Patient examined at the bedside in the emergency room. The patient presented to the hospital with a chief complaint of shortness of breath. The patient has a frequent congested cough at the time of examination. He denies any chest pain or pressure. He reports mild nausea but no vomiting. He denies any dizziness or lightheadedness. Patient was found to be positive for Covid 19. The patient was also found to have elevated troponins and was started on IV heparin. * EKG reveals EKG reveals sinus mechanism with right bundle branch block. * Chest xray interstitial edema concerning for fluid overload * Laboratory data: Troponin 1.670. 4.240. 3.170. * Current home cardiac medications include Plavix 75 mg at night, lisinopril 5 mg daily, Demadex 10 mg daily, Imdur 30 mg daily, Zetia 10 mg daily, at orvastatin 40 mg daily, and aspirin 81 mg daily * Most recent echocardiogram obtained in July 2023 revealed ejection fraction 50-55%, mild to moderate mitral regurgitation, moderate to severe aortic stenosis with peak gradient of 60 mmHg and mean gradient of 37 mmHg, and mild TR * Cardiac catheterization history: 08/08/2023 revealing severe coronary artery disease, [id number] nonobstructive disease involving the RCA, patent HERNANDEZ to LAD and patent SVG to OM, left circumflex proximally is occluded and LAD proximally is occluded. Medical management was recommended. 08/20 Patient is seen today in the emergency center waiting for bed on the cardiac stepdown unit. He states his breathing is a little bit better and has less cough. He denies having any chest pain no dizziness. He is on IV heparin and IV Lasix. Blood pressure 111/66, heart rate in 60s and 70s, pulse ox 96% on room air. Afebrile. WBC 7.7, hemoglobin 12.8, platelets of 131. Sodium 133, BUN 22, creatinine 0.92 and potassium 4.1. 08/21 Patient states in general he is feeling better. His breathing is better. No chest pain. His cough is less. No wheezing. He denies any syncopal episode or lightheadedness. Pressure 107/59, heart rate in the 60s, afebrile, pulse ox 93% on room air. Repeat blood work reveals WBC 8.7, hemoglobin 12.4. Sodium 131, potassium 3.9, CO2 21, BUN 24 creatinine 1.0. Case discussed with Dr. Bhardwaj and he has been cleared for discharge. Repeat limited echocardiogram reveals EF 45-50%. PHYSICAL EXAM: VITAL SIGNS: Reviewed. GENERAL: Well-developed in no acute distress. HEENT: Head is normocephalic. Pupils are equal, round. Sclerae anicteric. Mucous membranes of the mouth are moist. Neck supple. No JVD or thyromegaly LUNGS: Respirations even and unlabored. Lungs with expiratory wheezing and crackles noted. Frequent coughing noted during examination HEART: Regular rate and rhythm. S1 and S2 heard. Systolic murmur noted with diminished S2. EXTREMITIES: No clubbing or cyanosis. Peripheral pulses intact. Trace lower extremity edema NEUROLOGIC: Awake and alert. Oriented x 3. ASSESSMENT: Covid 19 Elevated troponins due to type II HI secondary to infection. Patient had recent cardiac catheterization showing no significant obstructive disease. Acute on chronic heart failure with preserved EF, clinically volume overloaded, despite normal BNP Moderate to severe aortic stenosis Coronary artery disease with previous CABG and subsequent stenting of SVG to OM, April 2023 Hypertension Hyperlipidemia COPD PLAN: Continue patient on Demadex 10 mg daily oral Continue dual anti- platelet therapy secondary to stenting in April 2023 Continue atorvastatin 40 mg daily Hold lisinopril secondary to low BP Patient is cleared for discharge from cardiology and may follow-up in one to 2 weeks in the office. Nurse practitioner note has been reviewed by physician. Signing provider agrees with the documented findings, assessment, and plan of care. Objective - Vital Signs Vital signs: Vital Signs Temp 97.4 F L 08/21/23 04:00 Pulse 64 08/21/23 04:00 Resp 18 08/21/23 04:00 BP 107/59 08/21/23 04:00 Pulse Ox 93 L 08/21/23 04:00 FiO2 Intake & Output 12/05/23 12/06/23 12/06/23 18:59 06:59 18:59 Intake Total 96.833 Balance 96.833 Weight 90.3 kg Intake: Intake, IV Titration 96.833 Amount Heparin Sod,Pork in 0.45% 96.833 NaCl 25,000 unit In 0.45 % NaCl 1 250ml.bag @ 10. 4982 UNITS/KG/HR 10 mls/ hr IV .Q24H [facility] Rx#: [id number] Other: Voiding Method Toilet - Labs CBC & Chem 7: 08/21/23 09:54 08/21/23 09:54 Labs: Abnormal Lab Results - Last 24 Hours (Table) 08/20/23 08/20/23 08/20/23 Range/Units 12:05 12:05 12:05 RBC 4.04 L (4.30-5.90) m/uL Hgb 12.8 L (13.0-17.5) gm/dL Hct 38.2 L (39.0-53.0) % Plt Count 131 L (150-450) k/uL Lymphocytes # 0.8 L (1.0-4.8) k/uL APTT 43.4 H (22.0-30.0) sec Sodium 133 L (137-145) mmol/L BUN 22 H (9-20) mg/dL Glucose 130 H (74-99) mg/dL Lactate Dehydrogenase 248 H (120-246) U/L C-Reactive Protein 5.3 H (<1.0) mg/dL 08/20/23 Range/Units 21:13 RBC (4.30-5.90) m/uL Hgb (13.0-17.5) gm/dL Hct (39.0-53.0) % Plt Count (150-450) k/uL Lymphocytes # (1.0-4.8) k/uL APTT 38.6 H (22.0-30.0) sec Sodium (137-145) mmol/L BUN (9-20) mg/dL Glucose (74-99) mg/dL Lactate Dehydrogenase (120-246) U/L C-Reactive Protein (<1.0) mg/dL
[2023-08-21 13:53] VITALS: BP 131/61; RESP 16; TEMP 98.1
--- NOTE | 2023-08-22 10:09 | CDI ---
Documentation Clarification Form Date: 08/22/2023 09:53:55 AM From: Marleny Perry Phone: Admit Date: 08/19/2023 01:39:00 AM Patient Name: Demetrio Cordero V Visit Number: [id number] Discharge Date: 08/21/2023 02:21:00 PM ATTENTION: The Clinical Documentation Specialists (CDI) and [facility] Coding Staff appreciate your assistance in clarifying documentation. Please respond to the clarification below the line at the bottom and electronically sign. The CDI & [facility] Coding staff will review the response and follow-up if needed. Please note: Queries are made part of the Legal Health Record. If you have any questions, please contact the author of this message via ITS. Dr. Gabriella Virgen Your patient AHRF, AECOPD and is oxygen dependent. Based on this information and the findings below, is there an additional diagnosis that is clinically appropriate for this patient? History/Risk Factors: 83yo M, COVID w PNA, AHRF, AECOPD, ACDHF, HTN, JED, HELEN, obesity, <4wks NSTEMI w current DE II Tobacco use: former Home oxygen: oxygen dependent Clinical Indicators: Vital signs: 99.7F SD 88-101 Resp 20 BP 136/87 O2 Sat 92 ABG/CBG: pCO2 21 Lactate 248 Treatment: pulmonary medicine consulted continue on breathing treatments started on IVdexamethasone, continue Mucinex. In regards toCOPD exacerbationcontinue breathing treatments, steroids. Is there an additional diagnosis that is clinically appropriate for this patient? [ y ] Acute on Chronic Respiratory Failure [ ] Chronic Respiratory Failure [ ] Other Diagnosis, please specify [ ] Unable to determine (Template Last Revised: November 2020) MTDD
== END 2023-08-21 14:21 | disposition home health service (06) | DRG 177 ==
LOC: EC 23:58 → 4SSUR 08-19 01:39 → 1SOBS 08-19 05:22 → 3SCARD 08-19 09:01
PROVIDERS: ADMIT Hospitalist; ATTEND Hospitalist
PROC: 3E0333Z Introduction of Anti-inflammatory into Peripheral Vein, Percutaneous Approach (ICD-10-PCS; principal; 2023-08-19)
DX: U07.1 COVID-19 (principal); I21.4 Non-ST elevation (NSTEMI) myocardial infarction; J96.21 Acute and chronic respiratory failure with hypoxia; J12.82 Pneumonia due to coronavirus disease 2019; I50.33 Acute on chronic diastolic (congestive) heart failure; I21.A1 Myocardial infarction type 2; J44.0 Chronic obstructive pulmonary disease with (acute) lower respiratory infection; J44.1 Chronic obstructive pulmonary disease with (acute) exacerbation; I11.0 Hypertensive heart disease with heart failure; I35.0 Nonrheumatic aortic (valve) stenosis; I25.10 Atherosclerotic heart disease of native coronary artery without angina pectoris; E66.9 Obesity, unspecified; G47.33 Obstructive sleep apnea (adult) (pediatric); K44.9 Diaphragmatic hernia without obstruction or gangrene; E78.5 Hyperlipidemia, unspecified; I45.10 Unspecified right bundle-branch block; F41.1 Generalized anxiety disorder; R41.89 Other symptoms and signs involving cognitive functions and awareness; Z99.81 Dependence on supplemental oxygen; Z68.30 Body mass index [BMI] 30.0-30.9, adult; Z95.1 Presence of aortocoronary bypass graft; Z87.891 Personal history of nicotine dependence; Z79.82 Long term (current) use of aspirin; Z79.52 Long term (current) use of systemic steroids; Z79.02 Long term (current) use of antithrombotics/antiplatelets; Z79.51 Long term (current) use of inhaled steroids; Z79.899 Other long term (current) drug therapy; Z82.49 Family history of ischemic heart disease and other diseases of the circulatory system
CPT/HCPCS: 36415; 71045; 80048; 80053; 83605; 83615; 83735; 83880; 84100; 84484; 85025; 85027; 85610; 85730; 86140; 87636; 93005; 93308; 94640; 94760; 96361; 96365; 96368; 96375; 96376; 99285

== ENCOUNTER 2023-09-17 23:44 | Emergency (ER) | payer MEDICARE ==
[2023-09-17 23:56] VITALS: BP 123/61; PULSE 67; RESP 18; TEMP 98.2
--- NOTE | 2023-09-18 01:13 | ED ---
General Adult HPI - General Chief complaint: Shortness of Breath Stated complaint: SOB Source: patient Mode of arrival: EMS Limitations: no limitations - History of Present Illness Initial comments: 83 year old male with a PMH significant for COPD presenting to the ED with a chief complaint of dyspnea. Patient states earlier this week, started to experience a cough. States secondary to this, has had increasing shortness of breath. - Related Data Home Medications Medication Instructions Recorded Confirmed Ezetimibe [Zetia] 10 mg PO DAILY 02/13/16 08/19/23 Nitroglycerin Sl Tabs [Nitrostat] 0.4 mg SL Q5M PRN 06/22/16 08/19/23 clonazePAM [KlonoPIN] 0.5 mg PO DAILY PRN 06/22/16 08/19/23 Clopidogrel [Plavix] 75 mg PO HS 10/20/19 08/19/23 Montelukast Sodium [Singulair] 10 mg PO DAILY 06/22/20 08/19/23 DULoxetine HCL [Cymbalta] 60 mg PO DAILY 07/19/21 08/19/23 Fluticasone/Umeclidin/Vilanter 1 puff INHALATION RT-DAILY 03/06/22 08/19/23 [Trelegy Ellipta 100-62.5-25] Albuterol Inhaler [Ventolin Hfa 2 puff INHALATION RT-QID PRN 02/23/23 08/19/23 Inhaler] Donepezil [Aricept] 5 mg PO BID 05/06/23 08/19/23 polyethylene glycoL 3350 [Miralax] 17 gm PO DAILY 08/06/23 08/19/23 Acetaminophen Tab [Tylenol] 500 mg PO BID 08/19/23 08/19/23 Previous Rx's Medication Instructions Recorded Ipratropium-Albuterol Nebulize 3 ml INHALATION RT-QID PRN #20 each 02/25/23 [Duoneb 0.5 mg-3 mg/3 ml Soln] Aspirin 81 mg PO DAILY #30 tab 05/10/23 Atorvastatin [Lipitor] 40 mg PO DAILY #30 tab 05/10/23 Ipratropium-Albuterol Nebulize 3 ml INHALATION RT-QID each 05/10/23 [Duoneb 0.5 mg-3 mg/3 ml Soln] Isosorbide Mononitrate ER [Imdur] 30 mg PO DAILY #30 tab 05/10/23 Metoprolol Tartrate [Lopressor] 25 mg PO BID #60 tab 05/10/23 Torsemide [Demadex] 10 mg PO DAILY 30 Days #15 tab 05/10/23 lisinopriL [Zestril] 5 mg PO DAILY #30 tab 05/10/23 Pantoprazole [Protonix] 40 mg PO DAILY #30 tab 05/12/23 Doxycycline [Vibramycin] 100 mg PO BID 2 Days #3 cap 08/21/23 dexAMETHasone [Decadron] 6 mg PO DAILY 8 Days #8 tablet 08/21/23 guaiFENesin [Mucinex] 1,200 mg PO Q12HR 5 Days #10 tab 08/21/23 Allergies Allergy/AdvReac Type Severity Reaction Status Date / Time No Known Allergies Allergy Verified 09/17/23 23:49 Review of Systems ROS Statement: Those systems with pertinent positive or pertinent negative responses have been documented in the HPI. ROS Other: All systems not noted in ROS Statement are negative. Past Medical History Past Medical History: Coronary Artery Disease (CAD), Heart Failure, COPD, Hyperlipidemia, Sleep Apnea/CPAP/BIPAP Additional Past Medical History / Comment(s): COPD, obesity, coronary artery disease with previous bypass surgery, cataracts, hiatal hernia, obstructive sl eep apnea with CPAP therapy. 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 Mother History Unknown: Yes Family Medical History: CVA/TIA Additional Family Medical History / Comment(s): at age 99 3/4 from a stoke General Exam - General Exam Comments Initial Comments: Visual Physical Exam Vital signs reviewed General: Well-appearing, nontoxic, no acute distress. Head: Normocephalic, atraumatic Eyes: PERRLA, EOMI ENT: Airway patent Chest: Nonlabored breathing Skin: No visual rash, normal skin tone Neuro: Alert and oriented 3 Musculoskeletal: No gross abnormalities Limitations: no limitations Course Vital Signs 09/17/23 23:45 Temperature 98.2 F Pulse Rate 67 Respiratory 18 Rate Blood Pressure 123/61 O2 Sat by Pulse 97 Oximetry Medical Decision Making - Medical Decision Making Quicknote portion performed. Signed Gregory Jacobs PA-C Quick note was performed on this patient. Labs and imaging were obtained [place]germainee bunny patient left prior to completion and formal evaluation. - Lab Data Lab Results 09/17/23 Range/Units 23:50 Influenza Type A (PCR) Not Detected (Not Detectd) Influenza Type B (PCR) Not Detected (Not Detectd) RSV (PCR) Not Detected (Not Detectd) SARS-CoV-2 (PCR) Not Detected (Not Detectd) Disposition Clinical Impression: Pneumonia Disposition: LEFT AGAINST MEDICAL ADVICE Referrals: Doretha Rose MD [Primary Care Provider] - 1-2 days
--- NOTE | 2023-09-18 04:58 | XR ---
EXAM: XR Chest, 2 Views CLINICAL HISTORY: cough TECHNIQUE: Frontal and lateral views of the chest. COMPARISON: Chest x-ray dated 08/20/2023. FINDINGS: Lungs: Hypoventilation with bilateral lower lobe atelectasis and/or infiltrates with trace bilateral pleural effusions. Pleural space: See above. Heart: Status post CABG. The heart is at the upper limits of normal with mild pulmonary vascular congestion, similar to prior study. Mediastinum: Unchanged. Bones/joints: Sternotomy wires. No acute fracture. IMPRESSION: 1. Hypoventilation with bilateral lower lobe atelectasis and/or infiltrates with trace bilateral pleural effusions. 2. Status post CABG. The heart is at the upper limits of normal with mild pulmonary vascular congestion, similar to prior study.
== END 2023-09-18 02:25 | disposition left against medical advice (07) ==
LOC: EC 23:44
DX: J18.9 Pneumonia, unspecified organism (principal); E66.9 Obesity, unspecified; E78.5 Hyperlipidemia, unspecified; I25.10 Atherosclerotic heart disease of native coronary artery without angina pectoris; I50.9 Heart failure, unspecified; J44.0 Chronic obstructive pulmonary disease with (acute) lower respiratory infection; G47.33 Obstructive sleep apnea (adult) (pediatric); F32.A Depression, unspecified; F41.9 Anxiety disorder, unspecified; Z79.02 Long term (current) use of antithrombotics/antiplatelets; Z79.899 Other long term (current) drug therapy; Z87.891 Personal history of nicotine dependence; Z95.1 Presence of aortocoronary bypass graft; Z20.822 Contact with and (suspected) exposure to COVID-19; Z68.31 Body mass index [BMI] 31.0-31.9, adult; Z53.29 Procedure and treatment not carried out because of patient's decision for other reasons
CPT/HCPCS: 71046; 87636; 99285

== ENCOUNTER 2023-12-10 12:45 | Inpatient (IN) | payer MEDICARE ==
--- NOTE | 2023-12-10 13:20 | ED ---
SOB HPI - General Source: patient, family, RN notes reviewed Mode of arrival: wheelchair Limitations: no limitations <Anastasia Mayen - Last Filed: 12/10/23 13:18> - General Source: patient, family, RN notes reviewed Mode of arrival: wheelchair Limitations: no limitations <Jeff Rutherford - Last Filed: 12/10/23 15:45> - General Chief Complaint: Shortness of Breath Stated Complaint: SOB, O2 Reads last 89 Time Seen by Provider: 12/10/23 13:10 - History of Present Illness Initial Comments: Quick Note: This is an 83-year-old male who presents to the emergency department for shortness of breath. Symptoms started about 3 days ago. His states that his oxygen saturations have gotten as low as 87%. Denies any swelling in his legs. Patient currently denies any chest pain, however his states that he has dementia and has been expressing chest pain to her over the last couple of days. (Anastasia Mayen) Patient is a pleasant 83-year-old male present to the emergency department with chest discomfort. Symptoms have been going on for the past 3 days. Patient does have some associated dyspnea however states that is chronic from his COPD. No new leg pain or leg swelling. Patient states symptoms do worsen with exertion. Patient does take nitro with improvement of symptoms. Currently symptoms are very mild at this time. (Jeff Rutherford) - Related Data Home Medications Medication Instructions Recorded Confirmed Ezetimibe [Zetia] 10 mg PO DAILY 02/13/16 12/10/23 Nitroglycerin Sl Tabs [Nitrostat] 0.4 mg SL Q5M PRN 06/22/16 12/10/23 clonazePAM [KlonoPIN] 0.5 mg PO DAILY PRN 06/22/16 12/10/23 Clopidogrel [Plavix] 75 mg PO HS 10/20/19 12/10/23 Montelukast Sodium [Singulair] 10 mg PO DAILY 06/22/20 12/10/23 DULoxetine HCL [Cymbalta] 60 mg PO DAILY 07/19/21 12/10/23 Fluticasone/Umeclidin/Vilanter 1 puff INHALATION RT-DAILY 03/06/22 12/10/23 [Trelegy Ellipta 100-62.5-25] Albuterol Inhaler [Ventolin Hfa 2 puff INHALATION RT-QID PRN 02/23/23 12/10/23 Inhaler] Donepezil [Aricept] 5 mg PO DAILY 05/06/23 12/10/23 polyethylene glycoL 3350 [Miralax] 17 gm PO DAILY 08/06/23 12/10/23 Acetaminophen Tab [Tylenol] 500 mg PO Q6H PRN 08/19/23 12/10/23 Baclofen 10 mg PO HS PRN 12/10/23 12/10/23 Ibuprofen/Diphenhydramine HCl 2 cap PO HS 12/10/23 12/10/23 [Advil Pm Liqui-Gels] Isosorbide Mononitrate ER [Imdur] 60 mg PO DAILY 12/10/23 12/10/23 predniSONE 5 mg PO DAILY 12/10/23 12/10/23 Previous Rx's Medication Instructions Recorded Ipratropium-Albuterol Nebulize 3 ml INHALATION RT-QID PRN #20 each 02/25/23 [Duoneb 0.5 mg-3 mg/3 ml Soln] Aspirin 81 mg PO DAILY #30 tab 05/10/23 Atorvastatin [Lipitor] 40 mg PO DAILY #30 tab 05/10/23 Ipratropium-Albuterol Nebulize 3 ml INHALATION RT-QID each 05/10/23 [Duoneb 0.5 mg-3 mg/3 ml Soln] Metoprolol Tartrate [Lopressor] 25 mg PO BID #60 tab 05/10/23 Torsemide [Demadex] 10 mg PO DAILY 30 Days #15 tab 05/10/23 lisinopriL [Zestril] 5 mg PO DAILY #30 tab 05/10/23 Pantoprazole [Protonix] 40 mg PO DAILY #30 tab 05/12/23 Allergies Allergy/AdvReac Type Severity Reaction Status Date / Time No Known Allergies Allergy Verified 12/10/23 14:25 Review of Systems ROS Other: All systems not noted in ROS Statement are negative. <Anastasia Mayen - Last Filed: 12/10/23 13:18> ROS Other: All systems not noted in ROS Statement are negative. Constitutional: Denies: fever Eyes: Denies: eye pain ENT: Denies: ear pain Respiratory: Reports: as per HPI, dyspnea Cardiovascular: Reports: as per HPI, chest pain, dyspnea on exertion Endocrine: Reports: fatigue Gastrointestinal: Denies: abdominal pain <Jeff Rutherford - Last Filed: 12/10/23 15:45> ROS Statement: Those systems with pertinent positive or pertinent negative responses have been documented in the HPI. Past Medical History Past Medical History: Coronary Artery Disease (CAD), Heart Failure, COPD, Hyperlipidemia, Sleep Apnea/CPAP/BIPAP Additional Past Medical History / Comment(s): COPD, obesity, coronary artery disease with previous bypass surgery, cataracts, hiatal hernia, obstructive sleep apnea with CPAP therapy. 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 Mother History Unknown: Yes Family Medical History: CVA/TIA Additional Family Medical History / Comment(s): at age 99 3/4 from a stoke <Anastasia Mayen - Last Filed: 12/10/23 13:18> General Exam <Anastasia Mayen - Last Filed: 12/10/23 13:18> Limitations: no limitations General appearance: alert, in no apparent distress Head exam: Present: normocephalic Eye exam: Present: normal appearance Neck exam: Present: normal inspection Respiratory exam: Present: normal lung sounds bilaterally Cardiovascular Exam: Present: regular rate, normal rhythm, systolic murmur Expanded Peripheral pulses: 2+: Radial (R), Radial (L), Posterior Tibialis (R), Posterior Tibialis (L) GI/Abdominal exam: Present: soft. Absent: tenderness Extremities exam: Present: normal inspection. Absent: pedal edema, calf tenderness Neurological exam: Present: alert Psychiatric exam: Present: normal affect, normal mood Skin exam: Present: normal color <Jeff Rutherford - Last Filed: 12/10/23 15:45> - General Exam Comments Initial Comments: Visual Physical Exam Vital signs reviewed General: Well-appearing, nontoxic, no acute distress. Head: Normocephalic, atraumatic Eyes: PERRLA, EOMI ENT: Airway patent Chest: Nonlabored breathing Skin: No visual rash, normal skin tone Neuro: Alert and oriented 3 Musculoskeletal: No gross abnormalities (Anastasia Mayen) Course Vital Signs 12/10/23 12/10/23 12/10/23 13:16 13:48 14:50 Temperature 97.9 F Pulse Rate 70 72 Respiratory 20 18 18 Rate Blood Pressure 99/59 90/46 O2 Sat by Pulse 95 97 Oximetry Medical Decision Making <Anastasia Mayen - Last Filed: 12/10/23 13:18> - Lab Data Result diagrams: 12/10/23 13:45 12/10/23 13:45 <Jeff Rutherford - Last Filed: 12/10/23 15:45> - Medical Decision Making I performed the QuickNote portion of this chart. Signed Anastasia Mayen PA-C. (Anastasia Mayen) EKG interpreted by myself shows sinus rhythm with a rate of 69. Superior axis. [place] 173. QRS 150. QTc 464. Right bundle branch block. T wave inversion V1 through V4. biphasic T waves V5 V6. Was pt. sent in by a medical professional or institution (AAMIR Hebert, WEB MARKETING SPECIALIST, urgent care, hospital, or snf...) When possible be specific @ -No Did you speak to anyone other than the patient for history (EMS, parent, family, police, friend...)? What history was obtained from this source @ - is present and helps provide history as patient is hard of hearing Did you review nursing and triage notes (agree or disagree)? Why? @ -I reviewed and agree with nursing and triage notes Were old charts reviewed (outside hosp., previous admission, EMS record, old EKG, old radiological studies, urgent care reports/EKG's, snf records)? Report findings @ -Previous chest x-ray reviewed Differential Diagnosis (chest pain, altered mental status, abdominal pain women, abdominal pain men, vaginal bleeding, weakness, fever, dyspnea, syncope, headache, dizziness, GI bleed, back pain, seizure, CVA, palpatations, mental health, musculoskeletal)? @ -Differential Chest Pain: Stable Angina, Unstable Angina, STEMI, NSTEMI Aortic Dissection, Pneumothorax, Musculoskeletal, Esophageal Spasm GERD, Cholecystitis, Pancreatitis, Zoster, this is not meant to be an all-inclusive list. EKG interpreted by me (3pts min.). @ -As above X-rays interpreted by me (1pt min.). @ -Chest x-ray shows mild nonspecific haziness CT interpreted by me (1pt min.). @ -None done U/S interpreted by me (1pt. min.). @ -None done What testing was considered but not performed or refused? (CT, X-rays, U/S, labs)? Why? @ -None What meds were considered but not given or refused? Why? @ -None Did you discuss the management of the patient with other professionals (professionals i.e. , PA, WEB MARKETING SPECIALIST, lab, RT, psych nurse, social work nurse, nuclear medicine medical director, teacher, small business banking officer, pillowcase folder)? Give summary @ -Case discussed with Dr. Alaniz who will admit covering Dr. Palacios Was smoking cessation discussed for >3mins.? @ -No Was critical care preformed (if so, how long)? @ -No Were there social determinants of health that impacted care today? How? (Homelessness, low income, unemployed, alcoholism, drug addiction, nolan sportation, low edu. Level, literacy, decrease access to med. care, longterm, rehab)? @ -No Was there de-escalation of care discussed even if they declined (Discuss DNR or withdrawal of care, Hospice)? DNR status @ -No What co-morbidities impacted this encounter? (DM, HTN, Smoking, COPD, CAD, Cancer, CVA, ARF, Chemo, Hep., AIDS, mental health diagnosis, sleep apnea, morbid obesity)? @ -Coronary artery disease Was patient admitted / discharged? Hospital course, mention meds given and route, prescriptions, significant lab abnormalities, going to OR and other pertinent info. @ -Patient reevaluated and resting comfortably in bed. Patient and family updated on results and plan. Patient will be admitted with cardiac consult. Admission orders written. Undiagnosed new problem with uncertain prognosis? @ -No Drug Therapy requiring intensive monitoring for toxicity (Heparin, Nitro, Insulin, Cardizem)? @ -No Were any procedures done? @ -No Diagnosis/symptom? @ -Chest pain Acute, or Chronic, or Acute on Chronic? @ -Acute Uncomplicated (without systemic symptoms) or Complicated (systemic symptoms)? @ -Default Side effects of treatment? @ -No Exacerbation, Progression, or Severe Exacerbation? @ -No Poses a threat to life or bodily function? How? (Chest pain, [place], [place], pneumonia, PE, COPD, DKA, ARF, appy, cholecystitis, CVA, Diverticulitis, Homicidal, Suicidal, threat to staff... and all critical care pts) @ -No (Jeff Rutherford) - Lab Data Lab Results 12/10/23 12/10/23 12/10/23 Range/Units 13:45 13:45 13:45 WBC 8.0 (3.8-10.6) k/uL RBC 4.03 L (4.30-5.90) m/uL Hgb 12.6 L (13.0-17.5) gm/dL Hct 37.9 L (39.0-53.0) % MCV 94.0 (80.0-100.0) fL MCH 31.4 (25.0-35.0) pg MCHC 33.4 (31.0-37.0) g/dL RDW 14.3 (11.5-15.5) % Plt Count 139 L (150-450) k/uL MPV 10.3 Neutrophils % 76 % Lymphocytes % 13 % Monocytes % 7 % Eosinophils % 2 % Basophils % 0 % Neutrophils # 6.1 (1.3-7.7) k/uL Lymphocytes # 1.1 (1.0-4.8) k/uL Monocytes # 0.6 (0-1.0) k/uL Eosinophils # 0.2 (0-0.7) k/uL Basophils # 0.0 (0-0.2) k/uL PT 10.4 (10.0-12.5) sec INR 0.9 (<1.2) APTT 23.0 (22.0-30.0) sec Sodium 139 (137-145) mmol/L Potassium 4.3 (3.5-5.1) mmol/L Chloride 107 (98-107) mmol/L Carbon Dioxide 23 (22-30) mmol/L Anion Gap 9 mmol/L BUN 13 (9-20) mg/dL Creatinine 0.97 (0.66-1.25) mg/dL Est GFR (CKD-EPI)AfAm 84 (>60 ml/min/1.73 sqM) Est GFR (CKD-EPI)NonAf 73 (>60 ml/min/1.73 sqM) Glucose 123 H (74-99) mg/dL Plasma Lactic Acid Ronaldo (0.7-2.0) mmol/L Calcium 8.9 (8.4-10.2) mg/dL Total Bilirubin 0.6 (0.2-1.3) mg/dL AST 26 (17-59) U/L ALT 25 (4-49) U/L Alkaline Phosphatase 92 (38-126) U/L Troponin I (0.000-0.034) ng/mL NT-Pro-B Natriuret Pep 748 pg/mL Total Protein 6.3 (6.3-8.2) g/dL Albumin 3.8 (3.5-5.0) g/dL Influenza Type A (PCR) (Not Detectd) Influenza Type B (PCR) (Not Detectd) RSV (PCR) (Not Detectd) SARS-CoV-2 (PCR) (Not Detectd) 12/10/23 12/10/23 12/10/23 Range/Units 13:45 13:45 13:45 WBC (3.8-10.6) k/uL RBC (4.30-5.90) m/uL Hgb (13.0-17.5) gm/dL Hct (39.0-53.0) % MCV (80.0-100.0) fL MCH (25.0-35.0) pg MCHC (31.0-37.0) g/dL RDW (11.5-15.5) % Plt Count (150-450) k/uL MPV Neutrophils % % Lymphocytes % % Monocytes % % Eosinophils % % Basophils % % Neutrophils # (1.3-7.7) k/uL Lymphocytes # (1.0-4.8) k/uL Monocytes # (0-1.0) k/uL Eosinophils # (0-0.7) k/uL Basophils # (0-0.2) k/uL PT (10.0-12.5) sec INR (<1.2) APTT (22.0-30.0) sec Sodium (137-145) mmol/L Potassium (3.5-5.1) mmol/L Chloride (98-107) mmol/L Carbon Dioxide (22-30) mmol/L Anion Gap mmol/L BUN (9-20) mg/dL Creatinine (0.66-1.25) mg/dL Est GFR (CKD-EPI)AfAm (>60 ml/min/1.73 sqM) Est GFR (CKD-EPI)NonAf (>60 ml/min/1.73 sqM) Glucose (74-99) mg/dL Plasma Lactic Acid Ronaldo 1.7 (0.7-2.0) mmol/L Calcium (8.4-10.2) mg/dL Total Bilirubin (0.2-1.3) mg/dL AST (17-59) U/L ALT (4-49) U/L Alkaline Phosphatase (38-126) U/L Troponin I 0.043 H* (0.000-0.034) ng/mL NT-Pro-B Natriuret Pep pg/mL Total Protein (6.3-8.2) g/dL Albumin (3.5-5.0) g/dL Influenza Type A (PCR) Not Detected (Not Detectd) Influenza Type B (PCR) Not Detected (Not Detectd) RSV (PCR) Not Detected (Not Detectd) SARS-CoV-2 (PCR) Not Detected (Not Detectd) Disposition <Anastasia Mayen - Last Filed: 12/10/23 13:18> Is patient prescribed a controlled substance at d/c from ED?: No Time of Disposition: 15:45 <Jeff Rutherford - Last Filed: 12/10/23 15:45> Clinical Impression: Chest pain Disposition: ADMITTED IP TO THIS HOSP Referrals: Doretha Rose MD [Primary Care Provider] - 1-2 days
[2023-12-10 14:09] LABS: INR 0.9 (<1.2); Prothrombin Time 10.4 sec (10.0-12.5)
[2023-12-10 14:13] LABS: ALT 25 U/L (4-49); AST 26 U/L (17-59); African American GFR (CKD) 84 (>60 ml/min/1.73 sqM); Albumin 3.8 g/dL (3.5-5.0); Alkaline Phosphatase 92 U/L (38-126); Anion Gap 9 mmol/L; Basophils % (A) 0 %; Blood Urea Nitrogen 13 mg/dL (9-20); Calcium 8.9 mg/dL (8.4-10.2); Carbon Dioxide 23 mmol/L (22-30); Chloride 107 mmol/L (98-107); Eosinophils # (A) 0.2 k/uL (0-0.7); Eosinophils % (A) 2 %; Glucose 123 mg/dL (74-99); HCT 37.9 % (39.0-53.0); HGB 12.6 gm/dL (13.0-17.5); Lymphocytes # (A) 1.1 k/uL (1.0-4.8); Lymphocytes % (A) 13 %; MCH 31.4 pg (25.0-35.0); MCHC 33.4 g/dL (31.0-37.0); Mean Platelet Volume 10.3; Monocytes # (A) 0.6 k/uL (0-1.0); Monocytes % (A) 7 %; Neutrophils # (A) 6.1 k/uL (1.3-7.7); Neutrophils % (A) 76 %; Non-African American GFR(CKD) 73 (>60 ml/min/1.73 sqM); Platelet Count 139 k/uL (150-450); Potassium 4.3 mmol/L (3.5-5.1); RBC 4.03 m/uL (4.30-5.90); RDW 14.3 % (11.5-15.5); Sodium 139 mmol/L (137-145); Total Bilirubin 0.6 mg/dL (0.2-1.3); Total Protein 6.3 g/dL (6.3-8.2)
[2023-12-10 14:20] LABS: NT-Pro-B-Type Natriuretic Pept 748 pg/mL
--- NOTE | 2023-12-10 14:34 | XR ---
EXAMINATION TYPE: XR chest 2V DATE OF EXAM: 12/10/2023 2:14 PM CLINICAL INDICATION:Male, 83 years old with history of difficulty breathing; [facility] COMPARISON: Chest radiographs from 09/18/2023 TECHNIQUE: XR chest 2V Frontal and lateral views of the chest. FINDINGS: Lungs/Pleura: Low lung volumes are present. There is no evidence of pleural effusion, focal consolida tion, or pneumothorax. Pulmonary vascularity: Unremarkable. Heart/mediastinum: Cardiomediastinal silhouette is enlarged and stable. Atherosclerotic calcificatio ns are seen in the aorta. Musculoskeletal: No acute osseous pathology. Midline sternotomy wires are noted. IMPRESSION: Low lung volumes with a generalized hazy appearance which could represent atelectasis versus pulmonar y edema correlate with serum BNP.
[2023-12-10] MEDS ORDERED: NITROGLYCERIN SL TABS 0.4 MG TAB SUBLINGUAL PRN (15:45)
[2023-12-10] MEDS: ASPIRIN 81 MG PO STA (16:10)
[2023-12-10] MEDS ORDERED: IPRATROPIUM-ALBUTEROL 3 ML NEB INHALATION PRN (16:40)
[2023-12-10] MEDS ORDERED: ACETAMINOPHEN TAB 500 MG TAB PO PRN (16:40)
[2023-12-10] MEDS ORDERED: BACLOFEN 10 MG TAB PO PRN (16:40)
[2023-12-10] MEDS: FUROSEMIDE 10 MG/ML 4 ML VIAL IV SCH (16:47)
[2023-12-10] MEDS: IPRATROPIUM-ALBUTEROL 3 ML NEB INHALATION SCH (19:51)
[2023-12-10] MEDS ORDERED: IPRATROPIUM 0.5 MG/2.5 ML NEBU INHALATION SCH (20:00)
[2023-12-10] MEDS: CLOPIDOGREL 75 MG TAB PO SCH (20:11)
[2023-12-10] MEDS: METOPROLOL TARTRATE 25 MG TAB PO SCH (20:11)
[2023-12-11] MEDS ORDERED: CALCIUM CARBONATE 500 MG CHEWABLE PO PRN (00:52)
[2023-12-11] MEDS: methylPREDNISolone SOD SUCCI 125 MG/2 ML VIAL IV SCH (01:02)
[2023-12-11] MEDS: clonazePAM 0.5 MG TAB PO PRN (02:02)
--- NOTE | 2023-12-11 02:38 | HP ---
HISTORY AND PHYSICAL CHIEF COMPLAINT: Chest and epigastric pain. HISTORY OF PRESENT ILLNESS: This is an 83-year-old gentleman with a past medical history of multiple medical problems, was complaining of pain in the lower chest and upper abdomen as well as some shortness of breath. It started about 3 days ago. Oxygen saturation has gone down to 87%. The patient is being admitted for further evaluation and treatment. The chest x- ray, which I reviewed personally, showed some increased markings. CHF to be ruled out. The BNP was 748 and troponins were found to be 0.043. The patient was admitted for further evaluation and treatment. There is no history of any fever, rigors, or chills. The patient is followed by Dr. Rose in the outpatient setting. PAST MEDICAL HISTORY: Reviewed include COPD, CHF, CAD, CABG stent. HOME MEDICATIONS: Prior to admission include prednisone. Doses and rest of medications noted. ALLERGIES: None. FAMILY HISTORY: History of hyperlipidemia, myocardial infarction. SOCIAL HISTORY: Previous history of smoking, daily alcohol. REVIEW OF SYSTEMS: Fourteen-point review is negative except as mentioned earlier. PHYSICAL EXAMINATION: VITAL SIGNS: Pulse is 68, blood pressure 100/58, respirations 18. HEENT: Conjunctivae normal. NECK: No JVD. CARDIOVASCULAR: S1, S2. RESPIRATIONS: A few scattered rhonchi. ABDOMEN: Soft, obese, nontender. No mass palpable. LEGS: No edema. NERVOUS SYSTEM: Nonfocal. SKIN: No ulcer, rash, bleeding. JOINTS: No active deforming arthropathy. LABORATORY DATA: Hemoglobin 12.6. Rest of the labs are noted. Troponin is noted. The EKG which was reviewed personally showed right bundle branch block. ASSESSMENT: 1. Chest pain, possible acute umi-[id number]-[id number] elevation myocardial infarction. 2. Troponin 0.043. 3. Possible chronic obstructive pulmonary disease. 4. Possible congestive heart failure acute exacerbation. 5. History of coronary artery disease, coronary artery bypass graft stent. 6. History of congestive heart failure with chronic systolic dysfunction with ejection fraction of 40% to 50%. 7. Hyperlipidemia. 8. History of degenerative joint disease. 9. History of anxiety. 10.Multiple medical issues. RECOMMENDATIONS AND DISCUSSION: This is an 83-year-old gentleman, who presented with multiple complex medical issues, we will monitor the patient closely. Recommended D-dimer and if the D-dimer is positive, I will definitely order a CT angio. Otherwise, acute. The patient has COPD and CHF acute exacerbation. Intravenous Lasix. Cardiopulmonary consultations. Resume the home medications. Prognosis guarded because of multiple complex medical issues. Further recommendations to follow. See orders for further details. The patient had a 2D echo in August, which showed ejection fraction of 45% to 50%. NIKKIE / JUANITAN: [id number] /
--- NOTE | 2023-12-11 03:22 | P.CNPUL ---
History of Present Illness Consult date: 12/11/23 Requesting physician: Mey Alaniz Reason for consult: COPD Chief complaint: Shortness of breath and chest tightness History of present illness: Patient is an 83-year-old white male with past medical history significant for oxygen and steroid-dependent COPD, coronary artery disease status post CABG and subsequent PCI/stenting, congestive heart failure, moderate aortic stenosis, hyperlipidemia, generalized anxiety disorder, GERD, obesity, obstructive sleep apnea with home CPAP device. He does follow in the pulmonary office with Dr. Abrams for management of his COPD. Most recent available FEV1 is 72% of predicted. I believe he is maintained on a combination of Trelegy inhaler, DuoNebs [id number]-[id number], and as needed albuterol rescue inhaler. Who presents the emergency room yesterday afternoon complaining of acute on chronic shortness of breath. Denies any change in his chronic cough. No significant sputum production. Denies any recent URI-like symptoms. Denies any fevers. Denies sick contacts. He states that his home pulse ox has been reading below 80% with any kind of exertion. He is also complaining of intermittent substernal nonradiating chest pain and nausea with dry heaves. Indigestion/chest discomfort mostly after eating, which is usually relieved with Tums. On occasion, he does have substernal chest pain with exertion as well. On these occasions he takes nitro with relief. He does have significant history of coronary artery disease, with previous bypass surgery and subsequent PCI/stenting in April,. He was most recently admitted back in August, for acute non-ST elevation [place] and was also positive for COVID-19 at that time. Patient is currently sitting up in bed, on room air, in no acute distress. Chest x-ray shows low lung volumes with generalized hazy appearance which is likely atelectasis versus interstitial pulmonary edema. NT proBNP was not significantly elevated for age at 748. He was started on Lasix 40 mg twice daily. Troponins elevated but flat, not consistent with ACS. EKG shows normal sinus rhythm with RBBB. He has tested negative for influenza, RSV, COVID on this admission. CBC on arrival unremarkable. No leukocytosis. BMP on arrival, unremarkable. Afebrile. Patient is hemodynamically stable. Review of Systems REVIEW OF SYSTEMS: CONSTITUTIONAL: Denies any recent significant weight loss or weight gain. EYES: Denies change in vision. EARS, NOSE, MOUTH, THROAT: Denies headaches, denies sore throat. CARDIOVASCULAR: Chest pain as described in HPI. Denies any lightheadedness, chest palpitations or syncopal episodes. Denies any lower extremity edema. RESPIRATORY: See HPI GASTROINTESTINAL: Denies change in appetite, abdominal pain, or diarrhea. Admits occasional nausea with dry heaves, denies any actual emesis. GENITOURINARY: Denies hematuria, denies infections. MUSKULOSKELETAL: Denies pain, denies swelling. INTEGUMENTARY: Denies rash, denies eczema. NEUROLOGICAL: Denies recent memory loss, no recent seizure activity. PSYCHIATRIC: Denies anxiety, denies depression. HEMATOLOGIC/LYMPHATIC: Denies anemia, denies enlarged lymph node Past Medical History Past Medical History: Coronary Artery Disease (CAD), Heart Failure, COPD, Dementia, GERD/Reflux, Hyperlipidemia, Myocardial Infarction ([place]), Sleep Apnea/CPAP/BIPAP Additional Past Medical History / Comment(s): COPD, obesity, coronary artery disease with previous bypass surgery, cataracts, hiatal hernia, obstructive sleep apnea with CPAP therapy. 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 LIVES WITH HIS OF 61 YEARS IN A SINGLE LEVEL HOME THAT HAS 4 [address]. NO SERVICE IN PAST. RETIRED FROM [employer]. Smoking Status: Former smoker Past Alcohol Use History: Daily Additional Past Alcohol Use History / Comment(s): Pt states he quit smoking almost 35 years ago. Smoked cigars. Past Drug Use History: None Reported Additional Drug Use History / Comment(s): QUIT MANY YEARS AGO. quit cigars 35 years ago - Past Family History Father History Unknown: Yes Family Medical History: Hyperlipidemia, Myocardial Infarction ([place]) Additional Family Medical History / Comment(s): father and brothers(mi's in their 40's and 50's). Mother History Unknown: Yes Family Medical History: CVA/TIA Additional Family Medical History / Comment(s): at age 99 3/4 from a stoke Medications and Allergies Home Medications Medication Instructions Recorded Confirmed Type Ezetimibe [Zetia] 10 mg PO DAILY 02/13/16 12/10/23 History Nitroglycerin Sl Tabs [Nitrostat] 0.4 mg SL Q5M PRN 06/22/16 12/10/23 History clonazePAM [KlonoPIN] 0.5 mg PO DAILY PRN 06/22/16 12/10/23 History Clopidogrel [Plavix] 75 mg PO HS 10/20/19 12/10/23 History Montelukast Sodium [Singulair] 10 mg PO DAILY 06/22/20 12/10/23 History DULoxetine HCL [Cymbalta] 60 mg PO DAILY 07/19/21 12/10/23 History Fluticasone/Umeclidin/Vilanter 1 puff INHALATION RT-DAILY 03/06/22 12/10/23 History [Trelegy Ellipta 100-62.5-25] Albuterol Inhaler [Ventolin Hfa 2 puff INHALATION RT-QID PRN 02/23/23 12/10/23 History Inhaler] Ipratropium-Albuterol Nebulize 3 ml INHALATION RT-QID PRN #20 each 02/25/23 12/10/23 Rx [Duoneb 0.5 mg-3 mg/3 ml Soln] Donepezil [Aricept] 5 mg PO DAILY 05/06/23 12/10/23 History Aspirin 81 mg PO DAILY #30 tab 05/10/23 12/10/23 Rx Atorvastatin [Lipitor] 40 mg PO DAILY #30 tab 05/10/23 12/10/23 Rx Ipratropium-Albuterol Nebulize 3 ml INHALATION RT-QID each 05/10/23 12/10/23 Rx [Duoneb 0.5 mg-3 mg/3 ml Soln] Metoprolol Tartrate [Lopressor] 25 mg PO BID #60 tab 05/10/23 12/10/23 Rx Torsemide [Demadex] 10 mg PO DAILY 30 Days #15 tab 05/10/23 12/10/23 Rx lisinopriL [Zestril] 5 mg PO DAILY #30 tab 05/10/23 12/10/23 Rx Pantoprazole [Protonix] 40 mg PO DAILY #30 tab 05/12/23 12/10/23 Rx polyethylene glycoL 3350 [Miralax] 17 gm PO DAILY 08/06/23 12/10/23 History Acetaminophen Tab [Tylenol] 500 mg PO Q6H PRN 08/19/23 12/10/23 History Baclofen 10 mg PO HS PRN 12/10/23 12/10/23 History Ibuprofen/Diphenhydramine HCl 2 cap PO HS 12/10/23 12/10/23 History [Advil Pm Liqui-Gels] Isosorbide Mononitrate ER [Imdur] 60 mg PO DAILY 12/10/23 12/10/23 History predniSONE 5 mg PO DAILY 12/10/23 12/10/23 History Allergies Allergy/AdvReac Type Severity Reaction Status Date / Time No Known Allergies Allergy Verified 12/10/23 14:25 Physical Exam Vitals: Vital Signs Temp Pulse Pulse Resp BP BP Pulse Ox 12/11/23 02:00 68 18 12/11/23 00:52 98.1 F 68 18 102/50 95 12/10/23 22:00 98.0 F 59 L 20 117/57 95 12/10/23 21:45 67 18 116/81 96 12/10/23 19:58 74 12/10/23 19:52 73 12/10/23 18:30 60 20 100/56 94 L 12/10/23 18:00 71 20 103/58 93 L 12/10/23 17:00 65 20 100/58 94 L 12/10/23 16:03 68 18 100/58 96 12/10/23 16:00 74 20 90/46 94 L 12/10/23 15:00 72 20 107/59 93 L 12/10/23 14:50 72 18 90/46 97 12/10/23 14:00 72 20 107/59 93 L 12/10/23 13:48 18 12/10/23 13:47 68 12/10/23 13:16 97.9 F 70 20 99/59 95 Intake and Output 12/10/23 12/10/23 12/11/23 14:59 22:59 06:59 Other: Voiding Method Toilet Toilet Urinal Urinal # Voids 1 Weight 92.986 kg 92.986 kg GENERAL EXAM: Alert, 83-year-old white male, comfortable in no apparent distress. HEAD: Normocephalic and atraumatic EYES: Normal reaction of pupils, equal size. NOSE: Clear with pink turbinates. THROAT: No erythema or exudates. NECK: No masses, no JVD. CHEST: No chest wall deformity. LUNGS: Equal air entry with scattered expiratory wheezes and rhonchi. On room air. No conversational dyspnea or accessory muscle use while at rest. CVS: S1 and S2 normal with no audible murmur, regular rhythm. No extra heart sounds ABDOMEN: No hepatosplenomegaly, active bowel sounds, no guarding or rigidity. SPINE: No scoliosis or deformity SKIN: No rashes CENTRAL NERVOUS SYSTEM: No focal deficits, tone is normal in all 4 extremities. EXTREMITIES: There is no peripheral edema, clubbing, or cyanosis. Peripheral pulses are intact. Results - Laboratory Findings CBC and BMP: 12/10/23 13:45 12/10/23 13:45 PT/INR, D-dimer PT 10.4 sec (10.0-12.5) 12/10/23 13:45 INR 0.9 (<1.2) 12/10/23 13:45 D-Dimer 0.63 mg/L FEU (<0.60) H 12/10/23 17:05 Abnormal lab findings: Abnormal Labs 12/10/23 12/10/23 12/10/23 13:45 13:45 13:45 RBC 4.03 L Hgb 12.6 L Hct 37.9 L Plt Count 139 L D-Dimer Glucose 123 H Troponin I 0.043 H* 12/10/23 12/10/23 12/10/23 17:05 17:05 20:11 RBC Hgb Hct Plt Count D-Dimer 0.63 H Glucose Troponin I 0.054 H* 0.046 H* - Diagnostic Findings Chest x-ray: image reviewed Assessment and Plan Assessment: Acute on chronic dyspnea, likely secondary to acute COPD exacerbation. Chest x- ray shows low lung volumes with generalized hazy appearance which is likely atelectasis versus interstitial pulmonary edema. NT proBNP only mildly elevated at 748. Negative for influenza, RSV, COVID Elevated troponins, flat, not consistent with ACS History of coronary artery disease with previous CABG and subsequent PCI/stenting April, Chronic diastolic congestive heart failure, with most recent echocardiogram done 08/20/2023 which showed a borderline impaired left ventricular ejection fraction of 45 to 50%. History of moderate aortic stenosis History of hyperlipidemia History of hypertension Moderate chronic obstructive pulmonary disease, baseline FEV1 72% of predicted. Patient is steroid-dependent and intermittently oxygen dependent at home. History of obstructive sleep apnea, with home CPAP Recent hospitalization for acute COVID-19 infection Obesity, with a BMI of 31.2 kg/m History of GERD Generalized anxiety disorder Former tobacco dependence Plan: Patient's medications, labs, chest x-ray reviewed Currently on room air Patient has been started on combination of DuoNebs qgusxa-siv-bzeqj, Symbicort inhaler, and IV Solu-Medrol No need for antibiotics at this time Agree with diuresis in the form of Lasix 40 mg twice daily. Cardiology also asked to see this patient We will continue to follow I have personally seen and examined the patient, performed the documentation and the assessment and plan as written. Number of minutes spent on the visit:20 . Time with Patient: Greater than 30
[2023-12-11] MEDS ORDERED: SYMBICORT 80-4.5 MCG INHALER INHALATION SCH (08:00)
[2023-12-11] MEDS ORDERED: predniSONE 5 MG TAB PO SCH (09:00)
[2023-12-11] MEDS: SYMBICORT 160-4.5 MCG INHALER INHALATION SCH (09:22)
[2023-12-11] MEDS: ISOSORBIDE MONONITRATE ER 60 MG TAB.ER.24H PO SCH (09:44)
[2023-12-11] MEDS: ATORVASTATIN 40 MG TAB PO SCH (09:44)
[2023-12-11] MEDS: lisinopriL 5 MG TAB PO SCH (09:44)
[2023-12-11] MEDS: DULoxetine HCL 60 MG CAPSULE.DR PO SCH (09:44)
[2023-12-11] MEDS: DONEPEZIL 5 MG TAB PO SCH (09:44)
[2023-12-11] MEDS: EZETIMIBE 10 MG TAB PO SCH (09:44)
[2023-12-11] MEDS: polyethylene glycoL 3350 17 GM POWD.PACK PO SCH (09:44)
[2023-12-11] MEDS: PANTOPRAZOLE 40 MG TABLET PO SCH (09:44)
[2023-12-11] MEDS: ASPIRIN 325 MG TAB PO SCH (09:44)
[2023-12-11] MEDS: MONTELUKAST 10 MG TAB PO SCH (09:45)
[2023-12-11 10:16] LABS: Basophils % (A) 0 %; Eosinophils % (A) 0 %; HCT 41.5 % (39.0-53.0); HGB 13.1 gm/dL (13.0-17.5); Lymphocytes # (A) 0.5 k/uL (1.0-4.8); Lymphocytes % (A) 9 %; MCH 30.1 pg (25.0-35.0); MCHC 31.6 g/dL (31.0-37.0); MCV 95.4 fL (80.0-100.0); Mean Platelet Volume 10.9; Monocytes # (A) 0.1 k/uL (0-1.0); Monocytes % (A) 2 %; Neutrophils # (A) 5.1 k/uL (1.3-7.7); Neutrophils % (A) 87 %; Platelet Count 121 k/uL (150-450); RBC 4.35 m/uL (4.30-5.90); RDW 14.3 % (11.5-15.5); WBC 5.8 k/uL (3.8-10.6)
[2023-12-11 10:37] LABS: African American GFR (CKD) 69 (>60 ml/min/1.73 sqM); Anion Gap 11 mmol/L; Blood Urea Nitrogen 27 mg/dL (9-20); Calcium 9.1 mg/dL (8.4-10.2); Carbon Dioxide 21 mmol/L (22-30); Chloride 102 mmol/L (98-107); Glucose 181 mg/dL (74-99); Non-African American GFR(CKD) 59 (>60 ml/min/1.73 sqM); Potassium 4.7 mmol/L (3.5-5.1); Sodium 134 mmol/L (137-145)
[2023-12-11 11:31] LABS: Glucose,Whole Blood 593 mg/dL (70-110)
[2023-12-11 11:31] LABS: Glucose,Whole Blood 381 mg/dL (70-110)
[2023-12-11] MEDS: predniSONE 20 MG TAB PO SCH (11:52)
--- NOTE | 2023-12-11 14:05 | PN ---
PROGRESS NOTE DATE OF SERVICE: 12/11/2023 SUBJECTIVE: This is an 83-year-old gentleman admitted with chest and epigastric pain and possible acute dwk-LX-ugsjmgi-elevation myocardial infarction. No fever. No cough. OBJECTIVE: VITAL SIGNS: Pulse 63, blood pressure 98/52, respirations 18. CHEST: Clear to auscultation. CARDIOVASCULAR: S1, S2. ABDOMEN: Soft. NERVOUS SYSTEM: Nonfocal. LABORATORY DATA: D-dimer 0.63 and glucose is 381. Rest of the labs are noted. PAST MEDICAL HISTORY: Reviewed. CURRENT MEDICATIONS: Reviewed. ASSESSMENT: 1. Chest pain, possible acute zut-KZ-xuqkrlk elevation myocardial infarction. 2. Elevated D-dimer, rule out pulmonary embolism. 3. Troponin 0.043. 4. Possible chronic obstructive pulmonary disease. 5. Possible congestive heart failure acute exacerbation. 6. Coronary artery disease, coronary artery bypass graft. 7. History of congestive heart failure with chronic systolic dysfunction, ejection fraction 40% to 50%.. 8. Hyperlipidemia. 9. History of degenerative joint disease. 10.History of anxiety. 11.Multiple medical issues. RECOMMENDATIONS: Recommend to continue current management and continue symptomatic treatment. Continue with Lasix. Otherwise, I would also recommend CT angio of the chest. Continue with bronchodilators, antiplatelet agents, Lipitor. Prognosis guarded because of multiple complex medical issues. Further recommendations to follow. MMODL / IJN: [id number] /
--- NOTE | 2023-12-11 16:14 | CT ---
EXAMINATION TYPE: CT angio chest CT DLP: 440.9 mGycm, Automated exposure control for dose reduction was used. DATE OF EXAM: 12/11/2023 3:28 PM COMPARISON: Chest radiograph 12/10/2023 CT chest 05/09/2023. CLINICAL INDICATION:Male, 83 years old with history of pe; PE TECHNIQUE/CONTRAST: CTA scan of the thorax is performed with IV Contrast, patient injected with 80ml mL of Isovue 370, LA P images are created and reviewed these are created on a separate workstation.. FINDINGS: Pulmonary Artery: There is no evidence for a filling defect within the pulmonary vasculature to sugge st acute pulmonary embolism. The pulmonary artery is of normal size. Lungs/Pleura: No evidence of focal consolidation. Patchy groundglass airspace opacity is seen despite represent pneumonia or possibly congestive heart failure versus other Airway: Large airways are patent. Heart: Heart is within normal limits for size. Vasculature: No evidence of aortic aneurysm. Mediastinum: No gross evidence of adenopathy. Musculoskeletal: No acute osseous abnormalities Soft Tissues: Unremarkable. Lower neck: No significant findings. Upper Abdomen: No significant findings. IMPRESSION: 1. No evidence of pulmonary embolism. 2. Patchy groundglass airspace opacity is seen which might represent pneumonia or possibly congestive heart failure versus other. Correlate with BNP and other studies.
[2023-12-11 16:40] LABS: LDL Cholesterol,Calculated 68.5 mg/dL (0.0-131.0); VLDL Calculation 11.24 mg/dL (5.00-40.00)
[2023-12-11 16:41] LABS: Glucose,Whole Blood 301 mg/dL (70-110)
[2023-12-11] MEDS ORDERED: DEXTROSE 50% SYRINGE 50 ML IVP PRN ×2 (17:29)
[2023-12-11] MEDS: INSULIN ASPART (NovoLOG) 100 UNIT/ML VIAL SQ SCH (17:35)
[2023-12-11 20:30] LABS: Glucose,Whole Blood 177 mg/dL (70-110)
--- NOTE | 2023-12-11 22:12 | CONS ---
CONSULTATION Demetrio Cordero is an 83-year-old elderly gentleman with a known history of CAD, prior bypass surgery, moderate disease based on the recent cardiac catheterization within the last 6 to 8 months performed at [facility] by Dr. Luis Alfredo Vuong, who sees the patient on a regular basis. He also has mguivgde-ik-psykea aortic stenosis. He was in the hospital in August; and at that time, he was treated medically and discharged home. He is here because of increasing shortness of breath, also had some sharp pain in the chest. Quality of the pain is very atypical. The pain has now resolved. His breathing is also modestly improved. He has quit smoking several years ago, but he does have home oxygen and bronchial asthma and COPD. He uses steroids liberally. He is resting comfortably at the time of my evaluation without chest pain. Based on the previous consultation, it appears that this gentleman was evaluated at [facility] by his primary power ballast machine operator, Dr. Luis Alfredo Vuong. His echo from July revealed a 50% to 55% ejection fraction with yxax-zj-xfjytkxr mitral regurgitation and jpxzsgxc-ib-oezwkv aortic stenosis with mean gradient of mid 30s and cardiac cath revealed that the HERNANDEZ to LAD was patent. No significant disease in the RCA and SVG to OM was a patent left circumflex, it was occluded as was LAD. He was advised medical therapy. PAST MEDICAL HISTORY: 1. CAD with prior bypass surgery. 2. Ptbsxvfo-pt-duqqas aortic stenosis. 3. Moderate mitral regurgitation. 4. History of COVID infection. PHYSICAL EXAMINATION: VITAL SIGNS: Blood pressure is 108/62, pulse rate is about 80 per minute. HEENT: Unremarkable. Fundus was not examined by me. NECK: Supple. There is no JVD. I do not hear a carotid bruit. HEART: Reveals S1, S2 heard normally. There is an ejection systolic murmur with preserved second heart sound. LUNGS: Bilateral expiratory rhonchi. ABDOMEN: Soft, nontender. LOWER EXTREMITIES: Reveal diminished pulses. CENTRAL NERVOUS SYSTEM: Grossly, no focal deficits. LAB DATA: Suggest troponins are 0.4 and 0.4 and 0.5 respectively. ProBNP is normal. DIAGNOSTIC DATA: Chest x-ray does not suggest any clear-cut heart failure. IMPRESSION: 1. Exacerbation of chronic obstructive pulmonary disease, on steroids, doing better. 2. No evidence of heart failure. 3. History of stable coronary artery disease, recent cardiac cath. 4. Bakxuwgn-lz-otrutl aortic stenosis, stable, no related symptoms. RECOMMENDATIONS: From a cardiac standpoint, I would recommend that we pursue medical therapy. Pulmonary management is per Dr. Abrams and the patient is already improving. No other intervention from a cardiac standpoint. We will continue to see the patient as needed. Upon discharge, he will follow up with his primary power ballast machine operator in [facility]. Thank you very much for the consult. MMGLORIAL / IJN: [id number] /
[2023-12-12 06:31] LABS: Glucose,Whole Blood 148 mg/dL (70-110)
[2023-12-12 09:19] VITALS: BP 122/59; RESP 16; TEMP 98.5
[2023-12-12 11:29] LABS: Glucose,Whole Blood 131 mg/dL (70-110)
[2023-12-12 11:32] LABS: Basophils % (A) 0 %; Eosinophils % (A) 0 %; HCT 43.7 % (39.0-53.0); HGB 13.9 gm/dL (13.0-17.5); Lymphocytes # (A) 1.4 k/uL (1.0-4.8); Lymphocytes % (A) 9 %; MCH 30.9 pg (25.0-35.0); MCHC 31.9 g/dL (31.0-37.0); Mean Platelet Volume 10.8; Monocytes # (A) 0.9 k/uL (0-1.0); Monocytes % (A) 6 %; Neutrophils # (A) 13.4 k/uL (1.3-7.7); Neutrophils % (A) 84 %; Platelet Count 159 k/uL (150-450); RBC 4.51 m/uL (4.30-5.90); RDW 14.1 % (11.5-15.5)
[2023-12-12 11:43] LABS: African American GFR (CKD) 69 (>60 ml/min/1.73 sqM); Anion Gap 7 mmol/L; Blood Urea Nitrogen 35 mg/dL (9-20); Calcium 9.2 mg/dL (8.4-10.2); Carbon Dioxide 26 mmol/L (22-30); Chloride 102 mmol/L (98-107); Glucose 113 mg/dL (74-99); Non-African American GFR(CKD) 60 (>60 ml/min/1.73 sqM); Potassium 4.6 mmol/L (3.5-5.1); Sodium 135 mmol/L (137-145)
[2023-12-12 13:01] VITALS: PULSE 68
--- NOTE | 2023-12-12 15:33 | P.DS ---
Providers Date of admission: 12/11/23 12:50 Expected date of discharge: 12/12/23 Attending physician: Mey Alaniz Consults: 12/10/23 15:45 Consult Physician Urgent Consulting Provider: Ziyad Mckeon Consult Reason/Comments: cp Do you want consulting provider notified?: Yes 12/10/23 16:39 Consult Physician Routine Consulting Provider: Krys Abrams Consult Reason/Comments: copd Do you want consulting provider notified?: Yes Primary care physician: Doretha Rose Hospital Course: Final diagnosis Chest pain, ACS ruled out per cardiology Elevated D-dimer, ruled out pulmonary embolism Troponin 0.043 Chronic obstructive pulmonary disease, acute exacerbation Moderate to severe aortic stenosis Acute on chronic congestive heart failure exacerbation, systolic dysfunction, EF is 40 to 50% Coronary artery disease with coronary artery bypass grafting Obesity with a BMI of 30.8 Hyperlipidemia GERD History of degenerative joint disease History of anxiety/depression History of dementia History of obstructive sleep apnea with a CPAP GI prophylaxis DVT prophylaxis Full code Discharge disposition Patient is being discharged in a stable condition with guarded prognosis to home. Patient will follow-up with Dr. Rose in the outpatient setting upon discharge. Patient is to continue with current medications and close outpatient follow-up with his substitute teacher as well as pulmonary as scheduled. Patient instructed to continue a prednisone taper prior to resuming daily dose of prednisone on discharge. Total time taken is greater than 35 minutes. Hospital course This is a 83-year-old male who was recently admitted with chest pain and some shortness of breath being closely monitored. Patient with acute COPD exacerbation as well as concerns of possible acute CHF exacerbation. Patient evaluated by cardiology as well as pulmonary maintained on IV steroids along with breathing inhalational treatments. Patient has transition to a prednisone taper and instructed the patient to continue with prednisone taper prior to resuming daily dose of prednisone and close outpatient follow-up. Patient to continue with breathing treatments along with Trelegy inhaler. Patient evaluated by cardiology and ACS ruled out not concerned with CHF exacerbation although patient did improve on IV Lasix overnight. Patient reports to feeling well and would like to go home. Patient has been cleared by consultations for discharge and instructed to follow-up with his primary substitute teacher Dr. Vuong early next week. Please refer to other consultation notes for further HPI. Currently no reports of chest pain, shortness of breath, or palpitations. Patient is afebrile. No reports of nausea or vomiting and patient is tolerating diet. Patient will be discharged home today. Guarded prognosis. Physical exam: Gen: This is a 83-year-old male who is awake, alert and oriented x 3, well- developed, well-nourished, obese, elderly appearing HEENT: Head is atraumatic, normocephalic. Pupils equal, round. Sclerae is anicteric. NECK: Supple. No JVD. No lymphadenopathy. No thyromegaly. LUNGS: Diminished breath sounds bilaterally with some coarse scattered rhonchi noted. No intercostal retractions. HEART: S1, S2 are muffled ABDOMEN: Soft. Obese. Bowel sounds are present. No masses. No tenderness. EXTREMITIES: No pedal edema. No calf tenderness. NEUROLOGICAL: Patient is awake, alert and oriented x3. Cranial nerves 2 through 12 are grossly intact. Please refer to medication reconciliation sheet for a list of medications. The impression and plan of care has been dictated by Nisreen Esparza, Nurse Practitioner as directed. Dr. Corbin MD I have performed a history and examination and MDM of this patient, discussed the same with the dictator, and agree with the dictator's assessment and plan as written ,documented as a scribe. Based on total visit time, I have performed more than 50% of the visit. Patient Condition at Discharge: Fair Plan - Discharge Summary Discharge Rx Participant: No New Discharge Prescriptions: New predniSONE 10 mg PO DIRECTED #30 tab Continue Ezetimibe [Zetia] 10 mg PO DAILY clonazePAM [KlonoPIN] 0.5 mg PO DAILY PRN PRN Reason: Anxiety Nitroglycerin Sl Tabs [Nitrostat] 0.4 mg SL Q5M PRN PRN Reason: Chest Pain Clopidogrel [Plavix] 75 mg PO HS Montelukast Sodium [Singulair] 10 mg PO DAILY DULoxetine HCL [Cymbalta] 60 mg PO DAILY Fluticasone/Umeclidin/Vilanter [Trelegy Ellipta 100-62.5-25] 1 puff INHALATION RT-DAILY Albuterol Inhaler [Ventolin Hfa Inhaler] 2 puff INHALATION RT-QID PRN PRN Reason: Shortness Of Breath Ipratropium-Albuterol Nebulize [Duoneb 0.5 mg-3 mg/3 ml Soln] 3 ml INHALATION RT-QID PRN #20 each PRN Reason: Shortness Of Breath Aspirin 81 mg PO DAILY #30 tab Torsemide [Demadex] 10 mg PO DAILY 30 Days #15 tab Ipratropium-Albuterol Nebulize [Duoneb 0.5 mg-3 mg/3 ml Soln] 3 ml INHALATION RT-QID each Metoprolol Tartrate [Lopressor] 25 mg PO BID #60 tab lisinopriL [Zestril] 5 mg PO DAILY #30 tab polyethylene glycoL 3350 [Miralax] 17 gm PO DAILY Isosorbide Mononitrate ER [Imdur] 60 mg PO DAILY Baclofen 10 mg PO HS PRN PRN Reason: Muscle Pain Donepezil [Aricept] 5 mg PO DAILY Atorvastatin [Lipitor] 40 mg PO DAILY #30 tab Pantoprazole [Protonix] 40 mg PO DAILY #30 tab Acetaminophen Tab [Tylenol] 500 mg PO Q6H PRN PRN Reason: Pain Or Fever > 100.5 Ibuprofen/Diphenhydramine HCl [Advil Pm Liqui-Gels] 2 cap PO HS predniSONE 5 mg PO DAILY Discharge Medication List Ezetimibe [Zetia] 10 mg PO DAILY 02/13/16 [History] Nitroglycerin Sl Tabs [Nitrostat] 0.4 mg SL Q5M PRN 06/22/16 [History] clonazePAM [KlonoPIN] 0.5 mg PO DAILY PRN 06/22/16 [History] Clopidogrel [Plavix] 75 mg PO HS 10/20/19 [History] Montelukast Sodium [Singulair] 10 mg PO DAILY 06/22/20 [History] DULoxetine HCL [Cymbalta] 60 mg PO DAILY 07/19/21 [History] Fluticasone/Umeclidin/Vilanter [Trelegy Ellipta 100-62.5-25] 1 puff INHALATION RT-DAILY 03/06/22 [History] Albuterol Inhaler [Ventolin Hfa Inhaler] 2 puff INHALATION RT-QID PRN 02/23/23 [History] Ipratropium-Albuterol Nebulize [Duoneb 0.5 mg-3 mg/3 ml Soln] 3 ml INHALATION RT-QID PRN #20 each 02/25/23 [Rx] Donepezil [Aricept] 5 mg PO DAILY 05/06/23 [History] Aspirin 81 mg PO DAILY #30 tab 05/10/23 [Rx] Atorvastatin [Lipitor] 40 mg PO DAILY #30 tab 05/10/23 [Rx] Ipratropium-Albuterol Nebulize [Duoneb 0.5 mg-3 mg/3 ml Soln] 3 ml INHALATION RT-QID each 05/10/23 [Rx] Metoprolol Tartrate [Lopressor] 25 mg PO BID #60 tab 05/10/23 [Rx] Torsemide [Demadex] 10 mg PO DAILY 30 Days #15 tab 05/10/23 [Rx] lisinopriL [Zestril] 5 mg PO DAILY #30 tab 05/10/23 [Rx] Pantoprazole [Protonix] 40 mg PO DAILY #30 tab 05/12/23 [Rx] polyethylene glycoL 3350 [Miralax] 17 gm PO DAILY 08/06/23 [History] Acetaminophen Tab [Tylenol] 500 mg PO Q6H PRN 08/19/23 [History] Baclofen 10 mg PO HS PRN 12/10/23 [History] Ibuprofen/Diphenhydramine HCl [Advil Pm Liqui-Gels] 2 cap PO HS 12/10/23 [History] Isosorbide Mononitrate ER [Imdur] 60 mg PO DAILY 12/10/23 [History] predniSONE 5 mg PO DAILY 12/10/23 [History] predniSONE 10 mg PO DIRECTED #30 tab 12/12/23 [Rx] Follow up Appointment(s)/Referral(s): Krys Abrams MD [STAFF PHYSICIAN] - 1 Week (please call and make your appointment as the office is closed) Doretha Rose MD [Primary Care Provider] - 12/23/23 2:15 pm Luis Alfredo Vuong MD [REFERRING] - 2 Weeks (please call and make your appointment as the office is closed) Patient Instructions/Handouts: COPD (Chronic Obstructive Pulmonary Disease) (ED) Activity/Diet/Wound Care/Special Instructions: Activity limited until follow-up Follow-up with primary substitute teacher Follow-up primary care provider on discharge regarding elevated blood sugars and hemoglobin A1c of 7 Follow-up with pulmonary outpatient Continue prednisone taper prior to resuming her daily dose of prednisone Continue inhalers and DuoNeb treatments Discharge Disposition: HOME SELF-CARE
--- NOTE | 2023-12-12 16:09 | P.PN ---
Subjective Progress Note Date: 12/12/23 Principal diagnosis: Acute on chronic diastolic congestive heart failure and acute exacerbation of COPD Patient is an 83-year-old white male with past medical history significant for oxygen and steroid-dependent COPD, coronary artery disease status post CABG and subsequent PCI/stenting, congestive heart failure, moderate aortic stenosis, hyperlipidemia, generalized anxiety disorder, GERD, obesity, obstructive sleep apnea with home CPAP device. He does follow in the pulmonary office with Dr. Abrams for management of his COPD. Most recent available FEV1 is 72% of predicted. I believe he is maintained on a combination of Trelegy inhaler, DuoNebs [id number], and as needed albuterol rescue inhaler. Who presents the emergency room yesterday afternoon complaining of acute on chronic shortness of breath. Denies any change in his chronic cough. No significant sputum production. Denies any recent URI-like symptoms. Denies any fevers. Denies sick contacts. He states that his home pulse ox has been reading below 80% with any kind of exertion. He is also complaining of intermittent substernal nonradiating chest pain and nausea with dry heaves. Indigestion/chest discomfort mostly after eating, which is usually relieved with Tums. On occasion, he does have substernal chest pain with exertion as well. On these occasions he takes nitro with relief. He does have significant history of coronary artery disease, with previous bypass surgery and subsequent PCI/stenting in April,. He was most recently admitted back in August, for acute non-ST elevation TX and was also positive for COVID-19 at that time. Patient is currently sitting up in bed, on room air, in no acute distress. Chest x-ray shows low lung volumes with generalized hazy appearance which is likely atelectasis versus interstitial pulmonary edema. NT proBNP was not significantly elevated for age at 748. He was started on Lasix 40 mg twice daily. Troponins elevated but flat, not consistent with ACS. EKG shows normal sinus rhythm with RBBB. He has tested negative for influenza, RSV, COVID on this admission. CBC on arrival unremarkable. No leukocytosis. BMP on arrival, unremarkable. Afebrile. Patient is hemodynamically stable. Reevaluate today on 12/12/2023, patient is feeling much better, breathing a lot easier, he is on room air, he does have occasional cough and wheezing, but overall he is significantly improved. CT of the chest was reviewed, suspicious for underlying interstitial edema, patient is on diuretics, he is also on bronchodilators and steroids, I will clear the patient for discharge home today. Objective - Vital Signs Vital signs: Vital Signs Temp 98.5 F 12/12/23 08:00 Pulse 68 12/12/23 12:52 Resp 16 12/12/23 08:00 BP 122/59 12/12/23 08:00 Pulse Ox 95 12/12/23 09:26 FiO2 Intake & Output 12/11/23 12/12/23 12/12/23 18:59 06:59 18:59 Intake Total 540 560 390 Output Total 275 Balance 265 560 390 Weight 91.8 kg Intake: IV 20 40 Invasive Line 1 10 20 Invasive Line 2 10 20 Oral 540 540 350 Output: Urine 275 Other: Voiding Method Toilet Toilet Toilet Urinal Urinal Urinal # Voids 1 0 - Exam GENERAL EXAM: Alert, 83-year-old white male, comfortable in no apparent distress. HEAD: Normocephalic and atraumatic EYES: Normal reaction of pupils, equal size. NOSE: Clear with pink turbinates. THROAT: No erythema or exudates. NECK: No masses, no JVD. CHEST: No chest wall deformity. LUNGS crackles at the bases, minimal wheezing on forced expiratory maneuver only CVS: S1 and S2 normal with no audible murmur, regular rhythm. No extra heart sounds ABDOMEN: No hepatosplenomegaly, active bowel sounds, no guarding or rigidity. SKIN: No rashes CENTRAL NERVOUS SYSTEM: No focal deficits, tone is normal in all 4 extremities. EXTREMITIES: There is no peripheral edema, clubbing, or cyanosis. Peripheral pulses are intact. - Labs CBC & Chem 7: 12/12/23 10:06 12/12/23 10:06 Labs: Abnormal Lab Results - Last 24 Hours (Table) 12/11/23 12/11/23 12/11/23 Range/Units 09:13 16:39 20:25 WBC (3.8-10.6) k/uL Neutrophils # (1.3-7.7) k/uL Sodium (137-145) mmol/L BUN (9-20) mg/dL Glucose (74-99) mg/dL POC Glucose (mg/dL) 301 H 177 H (70-110) mg/dL HDL Cholesterol 61.30 H (40.00-60.00) mg/dL 12/12/23 12/12/23 12/12/23 Range/Units 06:00 10:06 10:06 WBC 16.0 H (3.8-10.6) k/uL Neutrophils # 13.4 H (1.3-7.7) k/uL Sodium 135 L (137-145) mmol/L BUN 35 H (9-20) mg/dL Glucose 113 H (74-99) mg/dL POC Glucose (mg/dL) 148 H (70-110) mg/dL HDL Cholesterol (40.00-60.00) mg/dL 12/12/23 Range/Units 11:23 WBC (3.8-10.6) k/uL Neutrophils # (1.3-7.7) k/uL Sodium (137-145) mmol/L BUN (9-20) mg/dL Glucose (74-99) mg/dL POC Glucose (mg/dL) 131 H (70-110) mg/dL HDL Cholesterol (40.00-60.00) mg/dL Assessment and Plan Assessment: Impression Acute on chronic dyspnea, likely secondary to acute COPD exacerbation. Chest x- ray shows low lung volumes with generalized hazy appearance which is likely atelectasis versus interstitial pulmonary edema. NT proBNP only mildly elevated at 748. Negative for influenza, RSV, COVID Elevated troponins, flat, not consistent with ACS History of coronary artery disease with previous CABG and subsequent PCI/stenting April, Chronic diastolic congestive heart failure, with most recent echocardiogram done 08/20/2023 which showed a borderline impaired left ventricular ejection fraction of 45 to 50%. History of moderate aortic stenosis History of hyperlipidemia History of hypertension Moderate chronic obstructive pulmonary disease, baseline FEV1 72% of predicted. Patient is steroid-dependent and intermittently oxygen dependent at home. History of obstructive sleep apnea, with home CPAP Recent hospitalization for acute COVID-19 infection Obesity, with a BMI of 31.2 kg/m History of GERD Generalized anxiety disorder Former tobacco dependence Recommendation: Will clear the patient for discharge home today on DuoNeb updrafts, Symbicort, prednisone burst and taper and diuretics. Patient to see me in the office in 1 week postdischarge Time with Patient: Less than 30
== END 2023-12-12 13:31 | disposition home or self-care (01) | DRG 291 ==
LOC: EC 12:45 → 3SCARD 15:47 → OBSVTOIN 12-11 12:50
PROVIDERS: ADMIT Hospitalist; ATTEND Hospitalist
DX: I11.0 Hypertensive heart disease with heart failure (principal); I50.43 Acute on chronic combined systolic (congestive) and diastolic (congestive) heart failure; F03.94 Unspecified dementia, unspecified severity, with anxiety; J44.1 Chronic obstructive pulmonary disease with (acute) exacerbation; I25.110 Atherosclerotic heart disease of native coronary artery with unstable angina pectoris; I25.2 Old myocardial infarction; Z95.1 Presence of aortocoronary bypass graft; Z95.5 Presence of coronary angioplasty implant and graft; E78.5 Hyperlipidemia, unspecified; M19.90 Unspecified osteoarthritis, unspecified site; Z79.52 Long term (current) use of systemic steroids; Z99.81 Dependence on supplemental oxygen; E66.9 Obesity, unspecified; Z68.31 Body mass index [BMI] 31.0-31.9, adult; F41.1 Generalized anxiety disorder; I08.0 Rheumatic disorders of both mitral and aortic valves; I45.10 Unspecified right bundle-branch block; K21.9 Gastro-esophageal reflux disease without esophagitis; Z79.82 Long term (current) use of aspirin; Z79.899 Other long term (current) drug therapy; Z82.49 Family history of ischemic heart disease and other diseases of the circulatory system; Z86.16 Personal history of COVID-19; Z98.42 Cataract extraction status, left eye; Z98.41 Cataract extraction status, right eye
CPT/HCPCS: 36415; 71046; 71275; 80048; 80053; 80061; 83036; 83605; 83880; 84484; 85025; 85379; 85610; 85730; 87636; 93005; 94640; 94760; 96374; 96376; 99285

== ENCOUNTER 2024-01-09 17:35 | Inpatient (IN) | payer MEDICARE ==
[2024-01-09 18:26] LABS: ALT 27 U/L (4-49); AST 29 U/L (17-59); African American GFR (CKD) 81 (>60 ml/min/1.73 sqM); Alkaline Phosphatase 107 U/L (38-126); Anion Gap 6 mmol/L; Blood Urea Nitrogen 21 mg/dL (9-20); Calcium 8.9 mg/dL (8.4-10.2); Carbon Dioxide 28 mmol/L (22-30); Chloride 109 mmol/L (98-107); Glucose 142 mg/dL (74-99); Magnesium 2.1 mg/dL (1.6-2.3); Non-African American GFR(CKD) 70 (>60 ml/min/1.73 sqM); Potassium 4.2 mmol/L (3.5-5.1); Sodium 143 mmol/L (137-145); Total Bilirubin 0.5 mg/dL (0.2-1.3); Total Protein 6.5 g/dL (6.3-8.2)
--- NOTE | 2024-01-09 18:42 | ED ---
Chest Pain HPI - General Source: patient, RN notes reviewed Mode of arrival: wheelchair Limitations: no limitations <Renetta Li - Last Filed: 01/09/24 18:41> - General Source: patient, RN notes reviewed, old records reviewed <Wilian Jorge - Last Filed: 01/09/24 20:57> - General Chief Complaint: Chest Pain Stated Complaint: chest pain Time Seen by Provider: 01/09/24 17:53 - History of Present Illness Initial Comments: Quick [id number] male with a history of a CABG and IN who presents the emergency department chief complaint of chest pain. Patient dates that he has been experiencing a tightness sensation in his mid chest over the past 2 days. States that he took a nitro today which did not help. Patient is currently on Plavix. (Renetta Li) Patient is an 83-year-old male who presents emergency department complaining of chest pain. Has been ongoing for multiple days. States it is across his chest. States it does improve with nitroglycerin. Does have a significant cardiac history including CAD, cardiac bypass on Plavix, aspirin, as well as a history of COPD on breathing treatments. Currently denies any complaints at this time. Workup was started in triage prior to me evaluating the patient. Patient initially seen as a quick note. I evaluated patient when he was placed in room 15. States chest pain last occurred multiple hours ago however patient does have a significant cardiac history which is why presents for evaluation. Denies any recent fevers, chills, cough. Denies any worsening lower extremity edema. Presents for further evaluation at this time. States that when he took a nitro he did have an episode of nausea but was not nauseous with the chest pain. Denies any diaphoresis or radiation of the pain.Currently asymptomatic. (Wilian Jorge) - Related Data Home Medications Medication Instructions Recorded Confirmed Ezetimibe [Zetia] 10 mg PO DAILY 02/13/16 01/09/24 Nitroglycerin Sl Tabs [Nitrostat] 0.4 mg SL Q5M PRN 06/22/16 01/09/24 clonazePAM [KlonoPIN] 0.5 mg PO DAILY PRN 06/22/16 01/09/24 Clopidogrel [Plavix] 75 mg PO HS 10/20/19 01/09/24 Montelukast Sodium [Singulair] 10 mg PO DAILY 10/07/20 04/25/24 DULoxetine HCL [Cymbalta] 60 mg PO DAILY 07/19/21 01/09/24 Fluticasone/Umeclidin/Vilanter 1 puff INHALATION RT-DAILY 03/06/22 01/09/24 [Trelegy Ellipta 100-62.5-25] Albuterol Inhaler [Ventolin Hfa 2 puff INHALATION RT-QID PRN 02/23/23 01/09/24 Inhaler] Donepezil [Aricept] 5 mg PO DAILY 05/06/23 01/09/24 polyethylene glycoL 3350 [Miralax] 17 gm PO DAILY 08/06/23 01/09/24 Acetaminophen Tab [Tylenol] 500 mg PO Q6H PRN 08/19/23 01/09/24 Baclofen 10 mg PO HS PRN 12/10/23 01/09/24 Ibuprofen/Diphenhydramine HCl 2 cap PO HS 12/10/23 01/09/24 [Advil Pm Liqui-Gels] Isosorbide Mononitrate ER [Imdur] 60 mg PO BID 12/10/23 01/09/24 predniSONE 5 mg PO DAILY 12/10/23 01/09/24 Previous Rx's Medication Instructions Recorded Ipratropium-Albuterol Nebulize 3 ml INHALATION RT-QID PRN #20 each 02/25/23 [Duoneb 0.5 mg-3 mg/3 ml Soln] Aspirin 81 mg PO DAILY #30 tab 05/10/23 Atorvastatin [Lipitor] 40 mg PO DAILY #30 tab 05/10/23 Ipratropium-Albuterol Nebulize 3 ml INHALATION RT-QID each 05/10/23 [Duoneb 0.5 mg-3 mg/3 ml Soln] Metoprolol Tartrate [Lopressor] 25 mg PO BID #60 tab 05/10/23 Torsemide [Demadex] 10 mg PO DAILY 30 Days #15 tab 05/10/23 lisinopriL [Zestril] 5 mg PO DAILY #30 tab 05/10/23 Pantoprazole [Protonix] 40 mg PO DAILY #30 tab 05/12/23 Allergies Allergy/AdvReac Type Severity Reaction Status Date / Time No Known Allergies Allergy Verified 01/09/24 19:44 Review of Systems ROS Other: All systems not noted in ROS Statement are negative. <GuillermoRenetta - Last Filed: 01/09/24 18:41> ROS Other: All systems not noted in ROS Statement are negative. <Wilian Jorge - Last Filed: 01/09/24 20:57> ROS Statement: Those systems with pertinent positive or pertinent negative responses have been documented in the HPI. Review of Systems: CONST: Denies fever EYES: Denies blurry vision ENT: Denies nasal congestion C/V: Denies Chest pain RESP: Denies shortness of breath GI: Denies abdominal pain : Denies dysuria SKIN: Denies rash. MSK: Denies joint pain. NEURO: Denies headache (Wilian Jorge) EKG Findings - EKG Comments: EKG Findings:: 12-lead Electrocardiogram Interpretation Note. EKG was reviewed and interpreted by myself. 12-lead ECG performed at 1743 is interpreted by me as revealing sinus rhythm with chronic right axis deviation right bundle branch block at a rate of 75 beats per minute. Right axis deviation. WA interval is 170 ms, QRS duration is 156 ms, QTc is 473 ms.. There were no ST or T wave abnormalities to suggest myocardial ischemia or injury. R wave progression across the precordium was satisfactory. By my interpretation this EKG is non- diagnostic for acute ischemia. When compared with EKG from November 2023, no significant change. Patient does have chronic slight T wave depression and inverted T waves in the precordial leads. - EKG Results: EKG: interpreted by ERMD <Wilian Jorge - Last Filed: 01/09/24 20:57> Past Medical History Past Medical History: Coronary Artery Disease (CAD), Heart Failure, COPD, Dementia, GERD/Reflux, Hyperlipidemia, Myocardial Infarction ([place]), Sleep Apnea/CPAP/BIPAP Additional Past Medical History / Comment(s): COPD, obesity, coronary artery disease with previous bypass surgery, cataracts, hiatal hernia, obstructive sleep apnea with CPAP therapy. 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 Mother History Unknown: Yes Family Medical History: CVA/TIA Additional Family Medical History / Comment(s): at age 99 3/4 from a stoke <Renetta Li - Last Filed: 01/09/24 18:41> General Exam Limitations: no limitations <Renetta Li - Last Filed: 01/09/24 18:41> <Wilian Jorge - Last Filed: 01/09/24 20:57> - General Exam Comments Initial Comments: Visual Physical Exam Vital signs reviewed General: Well-appearing, nontoxic, no acute distress. Head: Normocephalic, atraumatic Eyes: PERRLA, EOMI ENT: Airway patent Chest: Nonlabored breathing Skin: No visual rash, normal skin tone Neuro: Alert and oriented 3 Musculoskeletal: No gross abnormalities (Renetta Li) General: Appears in no acute distress. HEAD: Normal with no signs of head trauma. EYES: PERRLA, EOMI, conjunctiva normal, no discharge. ENT: Hearing grossly intact, normal oropharynx. RESPIRATORY: Clear breath sounds bilaterally. No wheezes, rales, or rhonchi. C/V: Regular rate and rhythm. S1 and S2 auscultated, no edema, peripheral pulses 2+ and intact throughout ABD: Abd is soft, nontender, nondistended EXT: Normal range of motion, no obvious deformity SKIN: No rashes or lesions observed on exposed skin. NEURO: Alert and oriented x 4. No focal deficits. (Wilian Jorge) Course Vital Signs 01/09/24 01/09/24 01/09/24 17:36 18:51 19:41 Temperature 97.8 F Pulse Rate 85 66 68 Respiratory 18 18 18 Rate Blood Pressure 134/71 125/57 134/64 O2 Sat by Pulse 95 97 96 Oximetry Chest Pain MDM <Renetta Li - Last Filed: 01/09/24 18:41> <Wilian Jorge - Last Filed: 01/09/24 20:57> - MDM I completed the quick note portion of this chart signed Renetta Li PA-C (Renetta Li) Was pt. sent in by a medical professional or institution ([facility], [facility], urgent care, hospital, or longterm...) When possible be specific @ -No Did you speak to anyone other than the patient for history (EMS, parent, family, police, friend...)? What history was obtained from this source @ -No Did you review nursing and triage notes (agree or disagree)? Why? @ -I reviewed and agree with nursing and triage notes Were old charts reviewed (outside hosp., previous admission, EMS record, old EKG, old radiological studies, urgent care reports/EKG's, longterm records)? Report findings @ -Old charts reviewed Differential Diagnosis (chest pain, altered mental status, abdominal pain women, abdominal pain men, vaginal bleeding, weakness, fever, dyspnea, syncope, headache, dizziness, GI bleed, back pain, seizure, CVA, palpatations, mental health, musculoskeletal)? @ -Differential Chest Pain: Stable Angina, Unstable Angina, STEMI, NSTEMI Aortic Dissection, Pneumothorax, Musculoskeletal, Esophageal Spasm GERD, Cholecystitis, Pancreatitis, Zoster, this is not meant to be an all-inclusive list. EKG interpreted by me (3pts min.). @ -As above X-rays interpreted by me (1pt min.). @ -Chest x-ray shows no obvious acute cardiopulmonary process. CT interpreted by me (1pt min.). @ -None done U/S interpreted by me (1pt. min.). @ -None done What testing was considered but not performed or refused? (CT, X-rays, U/S, labs)? Why? @ -None What meds were considered but not given or refused? Why? @ -None Did you discuss the management of the patient with other professionals (professionals i.e. [facility], [facility], lab, RT, psych nurse, manager social responsibility, jack winder, teacher, signals officer, keycase assembler)? Give summary @ - I spoke with the admitting team, MLMitra Alley who accepted the admission. Was smoking cessation discussed for >3mins.? @ -No Was critical care preformed (if so, how long)? @ -Yes, 35 minutes. Were there social determinants of health that impacted care today? How? (Homelessness, low income, unemployed, alcoholism, drug addiction, transportation, low edu. Level, literacy, decrease access to med. care, mcc, rehab)? @ -No Was there de-escalation of care discussed even if they declined (Discuss DNR or withdrawal of care, Hospice)? DNR status @ -No What co-morbidities impacted this encounter? (DM, HTN, Smoking, COPD, CAD, Cancer, CVA, ARF, Chemo, Hep., AIDS, mental health diagnosis, sleep apnea, morbid obesity)? @ -CAD, CHF, COPD, hypertension Was patient admitted / discharged? Hospital course, mention meds given and route, prescriptions, significant lab abnormalities, going to OR and other pertinent info. @ -Based on the patient's presentation and physical exam, patient presents with multiple days of chest pain. It is relieved with nitro. Currently has no acute complaints since arrival to the emergency department. Denies any current chest pain. Workup started as a quick note. I evaluated him when he was placed in a room. Patient's troponin is elevated to 0.861. BNP within acceptable limits. Remainder the labs unremarkable. EKG shows no signs of acute ischemia. Chest x-ray unremarkable for any acute process. Vital signs within acceptable limits. I discussed with the patient, and patient will be given 324 mg of aspirin, and placed on Nitropaste as nitro did improve his chest pain over the last few days, patient was also started on a heparin drip. He will be given a breathing treatment as well. Patient was in agreement this plan. He will be made n.p.o. after midnight in the event that he requires some form of intervention tomorrow. Patient agreement this plan. I spoke with the admitting team, KANIKA Hager who accepted the admission. Cardiology consulted. Undiagnosed new problem with uncertain prognosis? @ -No Drug Therapy requiring intensive monitoring for toxicity (Heparin, Nitro, Insulin, Cardizem)? @ -Heparin Were any procedures done? @ -No Diagnosis/symptom? @ -NSTEMI Acute, or Chronic, or Acute on Chronic? @ -Acute Uncomplicated (without systemic symptoms) or Complicated (systemic symptoms)? @ -Complicated Side effects of treatment? @ -No Exacerbation, Progression, or Severe Exacerbation? @ -No Poses a threat to life or bodily function? How? (Chest pain, [place], [place], pneumonia, PE, COPD, DKA, ARF, appy, cholecystitis, CVA, Diverticulitis, Homicidal, Suicidal, threat to staff... and all critical care pts) @ -Yes (Wilian Jorge) Critical Care Time Critical Care Time: Yes Total Critical Care Time: 35 <Wilian Jorge - Last Filed: 01/09/24 20:57> Disposition <Renetta Li - Last Filed: 01/09/24 18:41> Time of Disposition: 19:40 <Wilian Jorge - Last Filed: 01/09/24 20:57> Clinical Impression: Acute non-ST elevation myocardial infarction (NSTEMI) Disposition: ADMITTED IP TO THIS HOSP Condition: Serious
[2024-01-09 18:43] LABS: Basophils # (A) 0.1 k/uL (0-0.2); Basophils % (A) 1 %; Eosinophils # (A) 0.2 k/uL (0-0.7); Eosinophils % (A) 2 %; HCT 40.1 % (39.0-53.0); HGB 12.6 gm/dL (13.0-17.5); Lymphocytes # (A) 1.4 k/uL (1.0-4.8); Lymphocytes % (A) 18 %; MCH 30.5 pg (25.0-35.0); MCHC 31.4 g/dL (31.0-37.0); MCV 97.2 fL (80.0-100.0); Mean Platelet Volume 11.4; Monocytes # (A) 0.6 k/uL (0-1.0); Monocytes % (A) 8 %; Neutrophils # (A) 5.2 k/uL (1.3-7.7); Neutrophils % (A) 69 %; Platelet Count 142 k/uL (150-450); RBC 4.12 m/uL (4.30-5.90); RDW 14.2 % (11.5-15.5); WBC 7.6 k/uL (3.8-10.6)
[2024-01-09] MEDS ORDERED: HEPARIN SODIUM 1,000 UN/ML (10ML VL) IV PRN (18:58)
[2024-01-09 19:01] LABS: INR 0.9 (<1.2); Partial Thromboplastin Time 22.2 sec (22.0-30.0); Prothrombin Time 10.4 sec (10.0-12.5)
[2024-01-09 19:06] LABS: Large Platelets Present
[2024-01-09 19:07] LABS: Ovalocytes Present
[2024-01-09] MEDS: HEPARIN SODIUM 1,000 UN/ML (10ML VL) IV ONE (19:33)
[2024-01-09] MEDS: HEPARIN SOD,PORK IN 0.45% NACL 25,000 UNIT in 0.45% NACL 1 250ML.BAG IV SCH (19:34)
[2024-01-09] MEDS: ASPIRIN 81 MG PO STA (19:37)
[2024-01-09] MEDS: NITROGLYCERIN OINT 1 INCH/GM PACKET TOPICAL SCH (19:38)
[2024-01-09] MEDS ORDERED: ONDANSETRON 4 MG/2 ML VIAL IVP PRN (19:38)
[2024-01-09] MEDS ORDERED: NALOXONE 0.4 MG/ML 1 ML VIAL IV PRN (19:38)
--- NOTE | 2024-01-09 19:48 | XR ---
EXAMINATION TYPE: XR chest 2V DATE OF EXAM: 01/09/2024 6:42 PM CLINICAL INDICATION:Male, 83 years old with history of Chest Pain; [facility] COMPARISON: 12/31/2023, 12/10/2023 TECHNIQUE: XR chest 2V. Frontal and lateral views of the chest.. FINDINGS: Lines/Tubes/Devices: No indwelling lines are seen. Heart/mediastinum: Heart size upper normal. Stable appearance of the mediastinum. Partial calcified aorta. Pulmonary vascularity: Not increased, Lungs/Pleura: Similar mild diffuse coarsening of interstitial lung markings, likely chronic changes. Stable mild chronic appearing changes in the bilateral infrahilar lungs. Mild bibasilar scarring or a telectasis. No focal consolidation, sizable effusion or evidence of pneumothorax. Musculoskeletal: No acute osseous abnormality demonstrated in the limits of the exam. Degenerative c hanges of the spine and shoulders. Other findings: None. IMPRESSION: No acute cardiopulmonary abnormality.
[2024-01-09] MEDS: SODIUM CHLORIDE 0.9% 1,000 ML IV SCH (20:17)
[2024-01-10] MEDS ORDERED: HEPARIN SODIUM,PORCINE 10,000 UNIT in SODIUM CHLORIDE 0.9% 1,000 ML IRRIGATION PRN (07:00)
[2024-01-10] MEDS ORDERED: HEPARIN SODIUM,PORCINE (1 ML) 2,500 UNIT in SODIUM CHLORIDE 0.9% 250 ML IRRIGATION PRN (07:00)
[2024-01-10 07:45] LABS: Basophils % (A) 0 %; Eosinophils # (A) 0.2 k/uL (0-0.7); Eosinophils % (A) 3 %; HCT 36.8 % (39.0-53.0); HGB 12.1 gm/dL (13.0-17.5); Lymphocytes # (A) 1.7 k/uL (1.0-4.8); Lymphocytes % (A) 24 %; MCH 31.5 pg (25.0-35.0); MCHC 32.7 g/dL (31.0-37.0); MCV 96.3 fL (80.0-100.0); Mean Platelet Volume 11.7; Monocytes # (A) 0.5 k/uL (0-1.0); Monocytes % (A) 7 %; Neutrophils # (A) 4.5 k/uL (1.3-7.7); Neutrophils % (A) 63 %; Platelet Count 103 k/uL (150-450); RBC 3.82 m/uL (4.30-5.90); RDW 14.5 % (11.5-15.5); WBC 7.2 k/uL (3.8-10.6)
[2024-01-10 08:01] LABS: Partial Thromboplastin Time 51.4 sec (22.0-30.0); Prothrombin Time 10.6 sec (10.0-12.5)
[2024-01-10 08:02] LABS: ALT 25 U/L (4-49); AST 29 U/L (17-59); African American GFR (CKD) 86 (>60 ml/min/1.73 sqM); Albumin 3.4 g/dL (3.5-5.0); Alkaline Phosphatase 87 U/L (38-126); Anion Gap 5 mmol/L; Blood Urea Nitrogen 21 mg/dL (9-20); Calcium 8.7 mg/dL (8.4-10.2); Carbon Dioxide 25 mmol/L (22-30); Chloride 110 mmol/L (98-107); Glucose 117 mg/dL (74-99); Non-African American GFR(CKD) 75 (>60 ml/min/1.73 sqM); Sodium 140 mmol/L (137-145); Total Bilirubin 0.5 mg/dL (0.2-1.3); Total Protein 5.8 g/dL (6.3-8.2)
[2024-01-10] MEDS: IPRATROPIUM-ALBUTEROL 3 ML NEB INHALATION STA (08:38)
[2024-01-10] MEDS ORDERED: ALBUTEROL NEBULIZED 2.5 MG/3 ML INHALATION PRN (11:35)
[2024-01-10] MEDS ORDERED: BACLOFEN 10 MG TAB PO PRN (11:35)
[2024-01-10] MEDS ORDERED: NITROGLYCERIN SL TABS 0.4 MG TAB SUBLINGUAL PRN ×3 (11:35→18:37)
--- NOTE | 2024-01-10 11:51 | P.HPIM ---
History of Present Illness 83-year-old pleasant male with known history of coronary tree disease and history of coronary bypass grafting in the past came with complaints of chest pressure-like sensation found to be in non-ST elevation myocardial infarction with elevated troponin of 1.6 the first 1 being 0.8. Patient was eval by cardiology and patient is undergoing cardiac catheterization today patient has history of congestive heart failure mildly decreased ejection fraction of around 40 to 45% uses Demadex at home. Patient denies any fever chills patient does have history of smoking has mild wheezing and rhonchi. Patient has a Nitropatch with because of which his symptoms of chest pressure improved at this time. REVIEW OF SYSTEMS: CONSTITUTIONAL: No fever, no malaise, no fatigue. HEENT: No recent visual problems or hearing problems. Denied any sore throat. CARDIOVASCULAR: no palpitations, no syncope. PULMONARY: No shortness of breath, no cough, no hemoptysis. GASTROINTESTINAL: No diarrhea, no nausea, no vomiting, no abdominal pain. NEUROLOGICAL: No headaches, no weakness, no numbness. HEMATOLOGICAL: Denies any bleeding or petechiae. GENITOURINARY: Denies any burning micturition, frequency, or urgency. MUSCULOSKELETAL/RHEUMATOLOGICAL: Denies any joint pain, swelling, or any muscle pain. ENDOCRINE: Denies any polyuria or polydipsia. The rest of the 14-point review of systems is negative. PHYSICAL EXAMINATION: GENERAL: The patient is alert and oriented x3, not in any acute distress. Well developed, well nourished. HEENT: Pupils are round and equally reacting to light. EOMI. No scleral icterus. No conjunctival pallor. Normocephalic, atraumatic. No pharyngeal erythema. No thyromegaly. CARDIOVASCULAR: S1 and S2 present. No murmurs, rubs, or gallops. PULMONARY: Mild bilateral rhonchi and mild expiratory wheezing on exam ABDOMEN: Soft, nontender, nondistended, normoactive bowel sounds. No palpable organomegaly. MUSCULOSKELETAL: No joint swelling or deformity. EXTREMITIES: No cyanosis, clubbing, or pedal edema. NEUROLOGICAL: Gross neurological examination did not reveal any focal deficits. SKIN: No rashes. Assessment and plan -Acute non-ST elevation myocardial infarction: Patient undergo cardiac catheterization today we will continue with IV heparin patient will be resumed on dual antiplatelet therapy, beta-yara. Patient had side effects from atorvastatin because of which it was discontinued patient probably can be started on a different statin after the cardiac catheterization -Congestive heart failure chronic systolic function patient is appears to be euvolemic but receiving IV fluids which will be discontinued patient takes Demadex at home for now we will hold it until the procedure is done -COPD with mild acute exacerbation patient will be continued on inhalational wong atments patient probably will need inhaled steroids will not require any systemic steroids at this time -Gastroesophageal reflux disease -Sleep apnea : Artery disease -Hypertension -Hyperlipidemia -Depression DVT prophylaxis: Patient on IV heparin at this time Past Medical History Past Medical History: Coronary Artery Disease (CAD), Heart Failure, COPD, Dementia, GERD/Reflux, Hyperlipidemia, Myocardial Infarction ([place]), Sleep Apnea/CPAP/BIPAP Additional Past Medical History / Comment(s): COPD, obesity, coronary artery disease with previous bypass surgery, cataracts, hiatal hernia, obstructive sleep apnea with CPAP therapy. 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 Mother History Unknown: Yes Family Medical History: CVA/TIA Additional Family Medical History / Comment(s): at age 99 3/4 from a stoke Medications and Allergies Home Medications Medication Instructions Recorded Confirmed Type Ezetimibe [Zetia] 10 mg PO DAILY 02/13/16 01/09/24 History Nitroglycerin Sl Tabs [Nitrostat] 0.4 mg SL Q5M PRN 06/22/16 01/09/24 History clonazePAM [KlonoPIN] 0.5 mg PO DAILY PRN 06/22/16 01/09/24 History Clopidogrel [Plavix] 75 mg PO HS 10/20/19 01/09/24 History Montelukast Sodium [Singulair] 10 mg PO DAILY 06/22/20 01/09/24 History DULoxetine HCL [Cymbalta] 60 mg PO DAILY 07/19/21 01/09/24 History Fluticasone/Umeclidin/Vilanter 1 puff INHALATION RT-DAILY 03/06/22 01/09/24 History [Trelegy Ellipta 100-62.5-25] Albuterol Inhaler [Ventolin Hfa 2 puff INHALATION RT-QID PRN 02/23/23 01/09/24 History Inhaler] Ipratropium-Albuterol Nebulize 3 ml INHALATION RT-QID PRN #20 each 02/25/23 01/09/24 Rx [Duoneb 0.5 mg-3 mg/3 ml Soln] Donepezil [Aricept] 5 mg PO DAILY 05/06/23 01/09/24 History Aspirin 81 mg PO DAILY #30 tab 05/10/23 01/09/24 Rx Atorvastatin [Lipitor] 40 mg PO DAILY #30 tab 05/10/23 01/09/24 Rx Ipratropium-Albuterol Nebulize 3 ml INHALATION RT-QID each 05/10/23 01/09/24 Rx [Duoneb 0.5 mg-3 mg/3 ml Soln] Metoprolol Tartrate [Lopressor] 25 mg PO BID #60 tab 05/10/23 01/09/24 Rx Torsemide [Demadex] 10 mg PO DAILY 30 Days #15 tab 05/10/23 01/09/24 Rx lisinopriL [Zestril] 5 mg PO DAILY #30 tab 05/10/23 01/09/24 Rx Pantoprazole [Protonix] 40 mg PO DAILY #30 tab 05/12/23 01/09/24 Rx polyethylene glycoL 3350 [Miralax] 17 gm PO DAILY 08/06/23 01/09/24 History Acetaminophen Tab [Tylenol] 500 mg PO Q6H PRN 08/19/23 01/09/24 History Baclofen 10 mg PO HS PRN 12/10/23 01/09/24 History Ibuprofen/Diphenhydramine HCl 2 cap PO HS 12/10/23 01/09/24 History [Advil Pm Liqui-Gels] Isosorbide Mononitrate ER [Imdur] 60 mg PO BID 12/10/23 01/09/24 History predniSONE 5 mg PO DAILY 12/10/23 01/09/24 History Allergies Allergy/AdvReac Type Severity Reaction Status Date / Time No Known Allergies Allergy Verified 01/09/24 19:44 Physical Exam Vitals: Vital Signs Temp Pulse Resp BP Pulse Ox 01/10/24 11:09 74 18 136/74 95 01/10/24 09:30 97.9 F 75 18 152/82 96 01/10/24 08:48 71 01/10/24 08:38 70 01/10/24 08:14 72 18 146/73 96 01/10/24 06:00 70 22 140/94 94 L 01/10/24 03:00 92 24 101/56 96 01/10/24 02:00 73 18 143/82 96 01/09/24 23:00 79 20 131/59 96 01/09/24 22:00 75 18 138/67 96 01/09/24 21:00 70 18 133/54 98 01/09/24 20:00 71 20 143/80 94 L 01/09/24 19:41 68 18 134/64 96 01/09/24 18:51 66 18 125/57 97 01/09/24 17:36 97.8 F 85 18 134/71 95 Intake and Output 01/09/24 01/10/24 01/10/24 22:59 06:59 14:59 Intake Total 64.962 Balance 64.962 Intake: Intake, IV Titration 64.962 Amount Heparin Sod,Pork in 0.45% 64.962 NaCl 25,000 unit In 0.45 % NaCl 1 250ml.bag @ 9 UNITS/KG/HR 10.124 mls/hr IV .Q24H [facility] Rx#: [id number] Other: Weight 112.491 kg Results CBC & Chem 7: 01/10/24 06:50 01/10/24 06:50 Labs: Abnormal Lab Results - Last 24 Hours (Table) 01/09/24 01/09/24 01/09/24 Range/Units 17:40 17:40 17:40 RBC 4.12 L (4.30-5.90) m/uL Hgb 12.6 L (13.0-17.5) gm/dL Hct (39.0-53.0) % Plt Count 142 L (150-450) k/uL APTT (22.0-30.0) sec Chloride 109 H (98-107) mmol/L BUN 21 H (9-20) mg/dL Glucose 142 H (74-99) mg/dL Troponin I 0.861 H* (0.000-0.034) ng/mL Total Protein (6.3-8.2) g/dL Albumin (3.5-5.0) g/dL 01/09/24 01/10/24 01/10/24 Range/Units 20:24 00:39 00:39 RBC (4.30-5.90) m/uL Hgb (13.0-17.5) gm/dL Hct (39.0-53.0) % Plt Count (150-450) k/uL APTT 47.9 H (22.0-30.0) sec Chloride (98-107) mmol/L BUN (9-20) mg/dL Glucose (74-99) mg/dL Troponin I 1.590 H* 1.470 H* (0.000-0.034) ng/mL Total Protein (6.3-8.2) g/dL Albumin (3.5-5.0) g/dL 01/10/24 01/10/24 01/10/24 Range/Units 06:50 06:50 06:50 RBC 3.82 L (4.30-5.90) m/uL Hgb 12.1 L (13.0-17.5) gm/dL Hct 36.8 L (39.0-53.0) % Plt Count 103 L (150-450) k/uL APTT 51.4 H (22.0-30.0) sec Chloride 110 H (98-107) mmol/L BUN 21 H (9-20) mg/dL Glucose 117 H (74-99) mg/dL Troponin I (0.000-0.034) ng/mL Total Protein 5.8 L (6.3-8.2) g/dL Albumin 3.4 L (3.5-5.0) g/dL
[2024-01-10] MEDS ORDERED: ALPRAZolam 0.5 MG TAB PO PRN (14:26)
[2024-01-10] MEDS ORDERED: ALPRAZolam 0.25 MG TAB PO PRN (14:26)
[2024-01-10] MEDS: ASPIRIN 325 MG TAB PO STA (17:10)
[2024-01-10] MEDS: ATORVASTATIN 80 MG TAB PO STA (17:10)
[2024-01-10] MEDS ORDERED: LIDOCAINE 1% INJ 10MG/ML (20 ML MDV) ONE (17:16)
[2024-01-10] MEDS: IV FLUID CONTINUATION 100 ML IV ONE (17:20)
[2024-01-10] MEDS: SODIUM CHLORIDE 0.9% 1,000 ML IV ONE (17:23)
[2024-01-10] MEDS ORDERED: fentaNYL (PF) 50 MCG/ML 2 ML AMP ONE (17:42)
[2024-01-10] MEDS ORDERED: HEPARIN SODIUM 1,000 UN/ML (10ML VL) ONE (17:42)
[2024-01-10] MEDS: MIDAZOLAM 2 MG/2 ML VIAL IVP ONE (17:44)
[2024-01-10] MEDS: fentaNYL (PF) 50 MCG/ML 2 ML AMP IVP ONE (17:46)
[2024-01-10] MEDS: LIDOCAINE 1% INJ 10MG/ML (20 ML MDV) SQ ONE (17:48)
[2024-01-10] MEDS ORDERED: CLOPIDOGREL 75 MG TAB ONE (18:15)
[2024-01-10] MEDS: CLOPIDOGREL 75 MG TAB PO ONE (18:18)
[2024-01-10] MEDS: IOPAMIDOL-370 100ML BTL INJ ONE ×2 (18:24→18:34)
[2024-01-10] MEDS: NITROGLYCERIN 1000MCG/10ML SYRINGE INTRACORON ONE (18:30)
[2024-01-10] MEDS ORDERED: RX INFO: IV CONTRAST WAS GIVEN 1 EACH MISC MISCELLANE PRN (18:37)
[2024-01-10] MEDS ORDERED: MAG HYDROX/AL HYDROX/SIMETH 30 ML CUP PO PRN (18:37)
[2024-01-10] MEDS ORDERED: ATROPINE SULFATE 0.1 MG/ML 10ML SYRINGE IV PRN (18:37)
[2024-01-10] MEDS ORDERED: ZOLPIDEM 5 MG TAB PO PRN (18:37)
--- NOTE | 2024-01-10 18:43 | P.PCN ---
Date of Procedure: 01/10/24 Operative Findings: CARDIAC CATHETERIZATION AND PERCUTANEOUS CORONARY INTERVENTION PERFORMING PHYSICIAN: Gorge Bui MD, [facility] PROCEDURE PERFORMED: 1. Selective right and left coronary angiogram and HERNANDEZ to LAD angiogram and SVG to LCx angiogram and radial artery bypass to PDA of RCA 2. Successful stenting of distal anastomosis of radial artery graft to the PDA of RCA using 2.25 x 23 mm Xience GEREMIAS with an excellent angiographic results with adjunctive use of intravascular imaging 3. Selective right common femoral artery angiogram and ultrasound-guided access of the right common femoral artery INDICATION: Acute non-ST elevation myocardial infarction COMPLICATION: None APPROACH: Right common femoral artery LEVEL OF SEDATION: Moderate with the sedation time off 47 minutes PROCEDURE DESCRIPTION: After obtaining informed consent the patient was brought to the cardiac Behavioral Analyst. The right common femoral artery was cannulated using micropuncture technique under ultrasound guidance the micropuncture wire passed easily then I placed a 6 Malagasy 11 cm sheath at the right common femoral artery. Subsequently I did selective left and right coronary angiogram using JL 4 and JR4 catheters. HERNANDEZ to LAD angiogram was performed using the JR4 catheter. The radial artery bypass to PDA angiogram was performed using the JR4 catheter. The SVG to LCx angiogram was performed also using the JR4 catheter. After that I decided to intervene on the radial artery bypass to PDA. Anticoagulation was initiated using heparin with continuous ACT monitoring. Subsequently I did engage the radial artery bypass to RCA using JR4 catheter. I did wired using a run-through wire. Intravascular ultrasound was performed and showed a diameter of 2.25 mm. Predilatation was performed using 2.0 mm balloon before I deployed 2.25 x 23 mm stent where the stent was positioned under fluoroscopy guidance and deployed under fluoroscopy guidance with the following angiogram showing excellent angiographic results and the procedure was completed with no complication SELECTIVE CORONARY ANGIOGRAM: The right coronary artery: Has intermediate lesion in the midportion appears to be in the range of 60%. The PDA of RCA is occluded. The PLV has mild disease Left main: Is occluded The left circumflex: Is occluded proximally The left anterior descending artery: Is occluded proximally Coronary bypasses angiogram: The HERNANDEZ to LAD is patent The SVG to LCx is patent The radial artery to PDA has critical lesion in the distal portion CONCLUSION: Severe triple-vessel coronary artery disease Patent HERNANDEZ to LAD Patent SVG to LCx Critical disease involving the radial artery bypass to PDA of RCA. I did perform successful stenting as described above with an excellent angiographic result POSTPROCEDURE MANAGEMENT: 1. Dual antiplatelet therapy using aspirin and Plavix for 12 month 2. Aggressive cholesterol control 3. Follow-up with the patient
[2024-01-10] MEDS: SODIUM CHLORIDE 0.9% 1,000 ML in EMPTY BAG 1 BAG IV SCH ×2 (19:00→22:54)
--- NOTE | 2024-01-10 19:25 | CONS ---
CONSULTATION CHIEF COMPLAINT: Chest pain. HISTORY OF PRESENT ILLNESS: Demetrio is an 83-year-old gentleman with history of coronary artery disease status post prior bypass surgery, who presented to hospital with chest pain. He describes it as a precordial chest pressure, moderate intensity, took sublingual nitroglycerin at home; and as it did not respond, came to the hospital. By the time of my evaluation in the emergency room, he seems chest pain-free. The patient had an echocardiogram in July of 2023 that revealed normal LV systolic function with [id number] aortic stenosis. He follows a onsite health coach out of [facility] regularly but lives here and his cardiac needs comes to our hospital. His troponin is elevated on this admission at 0.8, 1.5, and 1.4 with normal renal functions. Hemoglobin is normal at 12.1. At the time of my evaluation, he is chest pain-free and hemodynamically stable. The patient had a cardiac catheterization in July of [address] Bui in the setting of an acute coronary syndrome. The cardiac catheterization revealed severe three-vessel coronary artery disease with patent HERNANDEZ to LAD, venous graft to circumflex coronary artery, and bhic-ss-[id number] disease involving calcified right coronary artery. Given the symptomatology, elevated troponin, I advised the patient to undergo cardiac catheterization to see if there is any progression of underlying CAD and if he needs revascularization. I am going to ask Dr. Bui who performed his previous catheterization to do the same. PAST MEDICAL HISTORY: Significant for coronary artery disease status post bypass surgery, aortic stenosis, dyslipidemia, COPD. MEDICATIONS: Medications at home included nebulizers, Plavix, Zestril, Demadex, Protonix, Lopressor, Imdur, Zetia, Aricept, Cymbalta, Lipitor. ALLERGIES: There are no known drug allergies. FAMILY HISTORY: Negative for premature coronary artery disease. SOCIAL HISTORY: Negative for current smoking, EtOH abuse, or drug abuse. REVIEW OF SYSTEMS: 14 out of 14 review of systems has been performed. Pertinents are as documented. PHYSICAL EXAMINATION: VITAL SIGNS: Patient is comfortable at rest. Heart rate 70 beats per minute. Blood pressure 140/90, respiratory rate 18, O2 saturation is 96% on room air. NECK: There is no jugular venous distention. Carotid upstroke is normal. There is no bruit. CHEST: Reveals good air entry bilaterally. HEART: Reveals first and second heart sounds. No gallop. No murmur. ABDOMEN: Soft, nontender. EXTREMITIES: Did not reveal any edema. Peripheral pulses are felt. LABORATORY DATA: Show that the hemoglobin is 12.1, potassium is 4, creatinine is 0.9. Troponins are elevated at 0.8, 1.5, and 1.4 with negative COVID tests. DIAGNOSTIC DATA: EKG revealed sinus rhythm with right bundle branch block and right axis deviation. ASSESSMENT: 1. Acute gxg-WY-kvllyqg elevation myocardial infarction. 2. Coronary artery disease, status post coronary artery bypass graft. 3. Moderate aortic stenosis. PLAN: Patient will undergo cardiac catheterization for further evaluation. He understands risks, benefits, and alternatives. MMODL / IJN: [id number] /
[2024-01-10] MEDS: BUDESONIDE 0.5 MG/2 ML NEBU INHALATION SCH (20:18)
[2024-01-10] MEDS: METOPROLOL TARTRATE 25 MG TAB PO SCH (20:35)
[2024-01-10] MEDS: ACETAMINOPHEN TAB 500 MG TAB PO PRN (20:35)
[2024-01-10] MEDS: ISOSORBIDE MONONITRATE ER 60 MG TAB.ER.24H PO SCH (20:35)
[2024-01-10] MEDS: clonazePAM 0.5 MG TAB PO PRN (22:50)
[2024-01-10] MEDS: CLOPIDOGREL 75 MG TAB PO SCH (22:54)
[2024-01-11] MEDS: PANTOPRAZOLE 40 MG TABLET PO SCH (08:15)
[2024-01-11] MEDS: polyethylene glycoL 3350 17 GM POWD.PACK PO SCH (08:15)
[2024-01-11 08:18] LABS: African American GFR (CKD) >90 (>60 ml/min/1.73 sqM); Anion Gap 6 mmol/L; Blood Urea Nitrogen 16 mg/dL (9-20); Calcium 8.7 mg/dL (8.4-10.2); Carbon Dioxide 22 mmol/L (22-30); Chloride 110 mmol/L (98-107); Glucose 104 mg/dL (74-99); Non-African American GFR(CKD) 84 (>60 ml/min/1.73 sqM); Potassium 4.2 mmol/L (3.5-5.1); Sodium 138 mmol/L (137-145)
[2024-01-11] MEDS: IPRATROPIUM-ALBUTEROL 3 ML NEB INHALATION PRN (08:30)
[2024-01-11] MEDS: IPRATROPIUM 0.5 MG/2.5 ML NEBU INHALATION SCH (08:31)
[2024-01-11] MEDS: SYMBICORT 80-4.5 MCG INHALER INHALATION SCH (08:31)
[2024-01-11] MEDS ORDERED: ATORVASTATIN 40 MG TAB PO SCH (09:00)
[2024-01-11 09:14] LABS: HCT 37.6 % (39.0-53.0); HGB 11.6 gm/dL (13.0-17.5); MCH 29.9 pg (25.0-35.0); MCHC 30.7 g/dL (31.0-37.0); MCV 97.2 fL (80.0-100.0); Mean Platelet Volume 11.5; RBC 3.87 m/uL (4.30-5.90); RDW 14.3 % (11.5-15.5); WBC 5.7 k/uL (3.8-10.6)
[2024-01-11] MEDS: EZETIMIBE 10 MG TAB PO SCH (09:16)
[2024-01-11] MEDS: lisinopriL 5 MG TAB PO SCH (09:16)
[2024-01-11] MEDS: ASPIRIN 81 MG PO SCH (09:16)
[2024-01-11] MEDS: DULoxetine HCL 60 MG CAPSULE.DR PO SCH (09:16)
[2024-01-11] MEDS: CLOPIDOGREL 75 MG TAB PO SCH (09:16)
[2024-01-11] MEDS: DONEPEZIL 5 MG TAB PO SCH (09:21)
[2024-01-11 10:24] LABS: Platelet Count 96 k/uL (150-450)
--- NOTE | 2024-01-11 10:36 | P.PN ---
Subjective Progress Note Date: 01/11/24 History of present illness: This is an 83-year-old male with past medical history of coronary artery disease status post prior bypass surgery. He follows with a carpenters supervisor out of [place]. Patient presented to the hospital with chest pain. Patient underwent cardiac catheterization with Dr. Bui that revealed severe triple-vessel coronary artery disease, patent HERNANDEZ to LAD, patent SVG to left circumflex. Critical disease involving the radial artery bypass to PDA of RCA. Patient subsequently underwent successful stenting. He denied any chest pain at the time of evaluation but he did tell the nurse earlier that he was having some chest pain. EKG was reviewed with no change. He has home O2 that he uses as needed. Blood pressure 159/91, heart rate in the 80s and 90s, pulse ox 96% on 2 L nasal cannula. Repeat blood work reveals hemoglobin 11.6. BUN 16 creatinine 0.78, potassium 4.2. Physical examination: Gen: This is an 83-year-old male in no acute distress VS: reviewed HEENT: Head is atraumatic, normocephalic. Pupils equal, round. Sclerae is anicteric. NECK: Supple. No JVD. LUNGS: Clear to auscultation. No wheezes or rhonchi. No intercostal retractions. HEART: Regular rate and rhythm. No murmur. EXTREMITIES: No pedal edema. No calf tenderness. Right groin with no sign of hematoma, no tenderness. NEUROLOGICAL: Patient is awake, alert and oriented x3. Assessment: Acute non-ST elevated OK History of coronary artery disease with prior CABG Moderate aortic stenosis Intolerance to statin Plan: Continue current cardiac medications Plan to ambulate patient in the hallway and monitor symptoms. If patient has no difficulties, he is cleared for discharge from cardiology and may follow-up with his primary carpenters supervisor in 1 to 2 weeks. Nurse practitioner note has been reviewed, I agree with documented findings and plan of care. Patient was seen and examined. Objective - Vital Signs Vital signs: Vital Signs Temp 97.7 F 01/11/24 08:15 Pulse 80 01/11/24 08:51 Resp 19 01/11/24 08:15 BP 159/91 01/11/24 08:15 Pulse Ox 96 01/11/24 08:15 FiO2 Intake & Output 01/10/24 01/11/24 01/11/24 18:59 06:59 18:59 Intake Total 100 Output Total 900 Balance 100 -900 Weight 99 kg Intake: IV 100 Output: Urine 900 Other: Voiding Method Urinal # Voids 1 - Labs CBC & Chem 7: 01/11/24 06:49 01/11/24 06:49 Labs: Abnormal Lab Results - Last 24 Hours (Table) 01/11/24 Range/Units 06:49 Chloride 110 H (98-107) mmol/L Glucose 104 H (74-99) mg/dL
[2024-01-11 11:46] VITALS: BMI 31.3
[2024-01-11 13:44] VITALS: BP 119/58; PULSE 68; RESP 18; TEMP 97.8
--- NOTE | 2024-01-12 15:40 | P.DS ---
Providers Date of admission: 01/09/24 19:39 Expected date of discharge: 01/11/24 Attending physician: Mey Alaniz Consults: 01/09/24 19:38 Consult Physician Routine Consulting Provider: [facility] Consult Reason/Comments: nstemi Do you want consulting provider notified?: Yes 01/10/24 18:37 Consult Physician Routine Consulting Provider: [facility] Consult Reason/Comments: Post Interventional Patient Do you want consulting provider notified?: Already Contacted Primary care physician: Doretha Rose Hospital Course: Final diagnosis -Acute non-ST elevation myocardial infarction: Status post cardiac catheterization, successful stenting performed -Congestive heart failure chronic systolic dysfunction, not in exacerbation -COPD with mild acute exacerbation -Gastroesophageal reflux disease -Sleep apnea -Coronary artery disease -Hypertension -Hyperlipidemia -Obesity with a body mass index of 31.3 -Depression DVT prophylaxis GI prophylaxis Full code Discharge disposition Patient is being discharged in a stable condition with guarded prognosis to home. Patient will follow-up with Dr. Rose in the outpatient setting upon discharge. Patient is to continue with current medications and outpatient follow-up with plastics and composites inspector as well as pulmonary as scheduled. Total time taken is greater than 35 minutes. Hospital course This is a 83-year-old male who was recently admitted with increased shortness of breath with chest pain being closely monitored. Patient with NSTEMI status post cardiac catheterization with successful stenting. Patient evaluated by cardiology recommending to continue with maximizing medical management and close outpatient follow-up in the next 1 week. Patient has been cleared by cardiology for discharge today. Patient reports to feeling improved has some minimal shortness of breath with exertion but is improved from admission. Patient does chronically wear oxygen outpatient. Patient to continue with COPD regimen as well and will be discharged home today. Please refer to other consultation notes for further HPI. Currently no reports of chest pain, shortness of breath, or palpitations. Patient is afebrile. No reports of nausea or vomiting and patient is tolerating diet. Patient will be discharged home today. Guarded prognosis given significant comorbidities. Physical exam: Gen: This is a 83-year-old male who is awake, alert and oriented x 3, well- developed, well-nourished, obese, elderly appearing HEENT: Head is atraumatic, normocephalic. Pupils equal, round. Sclerae is anicteric. NECK: Supple. No JVD. No lymphadenopathy. No thyromegaly. LUNGS: Diminished breath sounds bilaterally with some scattered rhonchi. No intercostal retractions. HEART: S1, S2 are muffled ABDOMEN: Soft. Obese. Bowel sounds are present. No masses. No tenderness. EXTREMITIES: No pedal edema. No calf tenderness. NEUROLOGICAL: Patient is awake, alert and oriented x3. Cranial nerves 2 through 12 are grossly intact. Please refer to medication reconciliation sheet for a list of medications. The impression and plan of care has been dictated by Nisreen Esparza, Nurse Practitioner as directed. Dr. Pia MD I have performed a history and examination and MDM of this patient, discussed the same with the dictator, and agree with the dictator's assessment and plan as written ,documented as a scribe. Based on total visit time, I have performed more than 50% of the visit. Patient Condition at Discharge: Fair Plan - Discharge Summary Discharge Rx Participant: No New Discharge Prescriptions: Continue Ezetimibe [Zetia] 10 mg PO DAILY clonazePAM [KlonoPIN] 0.5 mg PO DAILY PRN PRN Reason: Anxiety Nitroglycerin Sl Tabs [Nitrostat] 0.4 mg SL Q5M PRN PRN Reason: Chest Pain Clopidogrel [Plavix] 75 mg PO HS Montelukast Sodium [Singulair] 10 mg PO DAILY DULoxetine HCL [Cymbalta] 60 mg PO DAILY Fluticasone/Umeclidin/Vilanter [Trelegy Ellipta 100-62.5-25] 1 puff INHALATION RT-DAILY Albuterol Inhaler [Ventolin Hfa Inhaler] 2 puff INHALATION RT-QID PRN PRN Reason: Shortness Of Breath Ipratropium-Albuterol Nebulize [Duoneb 0.5 mg-3 mg/3 ml Soln] 3 ml INHALATION RT-QID PRN #20 each PRN Reason: Shortness Of Breath Aspirin 81 mg PO DAILY #30 tab Ipratropium-Albuterol Nebulize [Duoneb 0.5 mg-3 mg/3 ml Soln] 3 ml INHALATION RT-QID each Metoprolol Tartrate [Lopressor] 25 mg PO BID #60 tab lisinopriL [Zestril] 5 mg PO DAILY #30 tab polyethylene glycoL 3350 [Miralax] 17 gm PO DAILY Isosorbide Mononitrate ER [Imdur] 60 mg PO BID Baclofen 10 mg PO HS PRN PRN Reason: Muscle Pain Donepezil [Aricept] 5 mg PO DAILY Atorvastatin [Lipitor] 40 mg PO DAILY #30 tab Pantoprazole [Protonix] 40 mg PO DAILY #30 tab Acetaminophen Tab [Tylenol] 500 mg PO Q6H PRN PRN Reason: Pain Or Fever > 100.5 Ibuprofen/Diphenhydramine HCl [Advil Pm Liqui-Gels] 2 cap PO HS predniSONE 5 mg PO DAILY Discontinued Torsemide [Demadex] 10 mg PO DAILY 30 Days #15 tab Discharge Medication List Ezetimibe [Zetia] 10 mg PO DAILY 02/13/16 [History] Nitroglycerin Sl Tabs [Nitrostat] 0.4 mg SL Q5M PRN 06/22/16 [History] clonazePAM [KlonoPIN] 0.5 mg PO DAILY PRN 06/22/16 [History] Clopidogrel [Plavix] 75 mg PO HS 10/20/19 [History] Montelukast Sodium [Singulair] 10 mg PO DAILY 06/22/20 [History] DULoxetine HCL [Cymbalta] 60 mg PO DAILY 07/19/21 [History] Fluticasone/Umeclidin/Vilanter [Trelegy Ellipta 100-62.5-25] 1 puff INHALATION RT-DAILY 03/06/22 [History] Albuterol Inhaler [Ventolin Hfa Inhaler] 2 puff INHALATION RT-QID PRN 02/23/23 [History] Ipratropium-Albuterol Nebulize [Duoneb 0.5 mg-3 mg/3 ml Soln] 3 ml INHALATION RT-QID PRN #20 each 02/25/23 [Rx] Donepezil [Aricept] 5 mg PO DAILY 05/06/23 [History] Aspirin 81 mg PO DAILY #30 tab 05/10/23 [Rx] Atorvastatin [Lipitor] 40 mg PO DAILY #30 tab 05/10/23 [Rx] Ipratropium-Albuterol Nebulize [Duoneb 0.5 mg-3 mg/3 ml Soln] 3 ml INHALATION RT-QID each 05/10/23 [Rx] Metoprolol Tartrate [Lopressor] 25 mg PO BID #60 tab 08/25/23 [Rx] lisinopriL [Zestril] 5 mg PO DAILY #30 tab 05/10/23 [Rx] Pantoprazole [Protonix] 40 mg PO DAILY #30 tab 05/12/23 [Rx] polyethylene glycoL 3350 [Miralax] 17 gm PO DAILY 08/06/23 [History] Acetaminophen Tab [Tylenol] 500 mg PO Q6H PRN 08/19/23 [History] Baclofen 10 mg PO HS PRN 12/10/23 [History] Ibuprofen/Diphenhydramine HCl [Advil Pm Liqui-Gels] 2 cap PO HS 12/10/23 [Histo ry] Isosorbide Mononitrate ER [Imdur] 60 mg PO BID 12/10/23 [History] predniSONE 5 mg PO DAILY 12/10/23 [History] Follow up Appointment(s)/Referral(s): Doretha Rose MD [Primary Care Provider] - 1-2 days Gorge Bui MD [STAFF PHYSICIAN] - 1 Week Patient Instructions/Handouts: *Surgery [facility] - After Heart Catheterization - [place] Instructions, Heart Attack (DC), Decision Aid for Stable Ischemic Heart Disease (GEN) Activity/Diet/Wound Care/Special Instructions: CARDIAC CATH Support your puncture site by applying firm, steady pressure whenever you cough, laugh, sneeze or bear down to have a bowel movement (2-day restriction). Watch for any excessive bruising, active bleeding, a firm knot forming under y our skin, extreme tenderness and signs of infection (redness, swelling, fever). Shower daily, do not soak puncture in a tub bath, jacuzzi, pool, calixto etc. for 1 week. This is to prevent risk of infection. Drink plenty of fluids the day of and day after your procedure to flush contrast dye out of your kidneys. Take all medications as directed. Never stop any new medication without your physicians OK. No driving for 2 days after procedure. 10- pound weight lifting restriction for 1 week. Low sodium/low fat diet. Activity limited until follow up appointment with your plastics and composites inspector. In case of any problems, please call [facility] [place] @ [phone]. Just some important facts for you to know after your stent placement Aspirin as anti-platelet therapy - Aspirin lessens the chance of heart attack and stroke. It helps prevent blood clots from forming, allowing the blood to flow more easily. Each day, you will take one 81 mg (non-enteric coated) tablet daily. Do not stop unless instructed by your doctor. Anti-platelet Therapy. -In addition to aspirin, you will take one additional anti-platelet medication daily. This will help prevent a clot from forming in your stent: Ticagreler (Brillinta) -You will need to take your anti-platelet medicine every day for 12 months -Please consult your heart doctor before you stop this medicine. -They may want you to continue for a longer period of time. Statins -A statin medication lowers cholesterol levels in the blood. This helps slow the progression of heart disease. - Please take your statin medication as prescribed by your doctor. -You may be taking one of the following statins: Rosuvastatin Beta blockers -Your Medication: Metoprolol Is a medication that protects your heart from stress and can prevent future heart attacks. It can slow your heart rate. It can take weeks for your body to get used to a beta yara. The dose may need to be changed a few times as your body adjusts Angiotensin receptor yara (ARB) -Your medication: Losartan is an angiotensin receptor yara in the ER used to reduce cardiovascular events and decrease the risk of developing diabetes, these medications are also known to prevent left ventricular remodeling after you have suffered a myocardial infarction. Do not stop taking these medicines without talking to your doctor. -Take all other medicines as directed by your doctor. Do not take any extra aspirin or ibuprofen. They can increase your risk of bleeding. Many [id number] drugs contain aspirin. If you are unsure about what the drug contains, check with your pharmacist before taking it. -For mild discomfort, you may take plain Tylenol (acetaminophen). Follow dose directions, but do not take more than 4,000 mg of acetaminophen in 24 hours. Contact your doctor right away or go to the nearest hospital Emergency Room if you have: -Severe angina or chest pain. (This may be a sign of a problem with your stent.) -Excessive bruising, blood in urine/stool or black tarry stools. Healthy LifeStyle It is important to keep a heart healthy lifestyle. This can improve your long- term health and decrease your risk for heart attacks. -Managing your blood cholesterol, blood pressure, weight, and stress. -The importance of regular exercise. -Heart Healthy Diet: Include more plants in your diet. Eat lots of fresh vegetables and fresh fruits. Eat good fats: plant based oils, avocado, nuts, beans, legumes. Eat more seafood. Limit Meat. Switch to whole grains. -Avoid fried foods and animal fats and processed meats \ Thank you for allowing us to participate in your care, it was truly a pleasure having you for our patient!!! Continue taking medications as prescribed Continue holding Demadex for now until follow-up with cardiology Discharge Disposition: HOME SELF-CARE
== END 2024-01-11 12:55 | disposition home or self-care (01) | DRG 322 ==
LOC: EC 17:35 → 3SCARD 19:39
PROVIDERS: ADMIT Hospitalist; ATTEND Hospitalist
PROC: 027034Z Dilation of Coronary Artery, One Artery with Drug-eluting Intraluminal Device, Percutaneous Approach (ICD-10-PCS; principal; 2024-01-10 22:10)
PROC: B240ZZ3 Ultrasonography of Single Coronary Artery, Intravascular (ICD-10-PCS; 2024-01-10 22:10)
PROC: B2111ZZ Fluoroscopy of Multiple Coronary Arteries using Low Osmolar Contrast (ICD-10-PCS; 2024-01-10 22:10)
DX: I21.4 Non-ST elevation (NSTEMI) myocardial infarction (principal); J44.1 Chronic obstructive pulmonary disease with (acute) exacerbation; I25.729 Atherosclerosis of autologous artery coronary artery bypass graft(s) with unspecified angina pectoris; I50.22 Chronic systolic (congestive) heart failure; F03.93 Unspecified dementia, unspecified severity, with mood disturbance; F03.94 Unspecified dementia, unspecified severity, with anxiety; I25.119 Atherosclerotic heart disease of native coronary artery with unspecified angina pectoris; I25.82 Chronic total occlusion of coronary artery; E66.9 Obesity, unspecified; F32.A Depression, unspecified; I35.0 Nonrheumatic aortic (valve) stenosis; K21.9 Gastro-esophageal reflux disease without esophagitis; E78.5 Hyperlipidemia, unspecified; G47.33 Obstructive sleep apnea (adult) (pediatric); Z95.1 Presence of aortocoronary bypass graft; Z68.31 Body mass index [BMI] 31.0-31.9, adult; Z82.49 Family history of ischemic heart disease and other diseases of the circulatory system; I25.2 Old myocardial infarction; Z79.82 Long term (current) use of aspirin; Z79.899 Other long term (current) drug therapy; Z79.51 Long term (current) use of inhaled steroids; Z87.891 Personal history of nicotine dependence; Z11.52 Encounter for screening for COVID-19
CPT/HCPCS: 36415; 37252; 71046; 80048; 80053; 83735; 83880; 84484; 85025; 85027; 85610; 85730; 87636; 92978; 93005; 93459; 94640; 96365; 96366; 96375; 99291

== ENCOUNTER 2024-02-23 13:03 | Inpatient (IN) | payer MEDICARE ==
--- NOTE | 2024-02-23 13:33 | ED ---
General Adult HPI - General Chief complaint: Chest Pain Stated complaint: chest pain Time Seen by Provider: 02/23/24 13:20 Source: patient, RN notes reviewed, old records reviewed Mode of arrival: ambulatory Limitations: no limitations - History of Present Illness Initial comments: This is an 83-year-old male who presents to the emergency department complaining that he has been having chest pain intermittently over the last 5 days. Patient states he has the chest pain with some mild shortness of breath and when he takes nitroglycerin he takes the pain away. Patient states he been taking quite a few nitroglycerin much more than his baseline. Patient states he had a previous heart attack stents and bypass surgery. Patient also has a history of COPD because he smoked heavily as a young man. Patient denies any recent fever chills states he does have a cough. Patient has very slight chest pain currently. Patient denies any abdominal pain patient has nausea vomiting diarrhea - Related Data Home Medications Medication Instructions Recorded Confirmed Ezetimibe [Zetia] 10 mg PO DAILY 02/13/16 02/23/24 Nitroglycerin Sl Tabs [Nitrostat] 0.4 mg SL Q5M PRN 06/22/16 02/23/24 clonazePAM [KlonoPIN] 0.5 mg PO DAILY PRN 06/22/16 02/23/24 Clopidogrel [Plavix] 75 mg PO HS 10/20/19 02/23/24 DULoxetine HCL [Cymbalta] 60 mg PO DAILY 07/19/21 02/23/24 Fluticasone/Umeclidin/Vilanter 1 puff INHALATION RT-DAILY 03/06/22 02/23/24 [Trelegy Ellipta 100-62.5-25] Albuterol Inhaler [Ventolin Hfa 2 puff INHALATION RT-QID PRN 02/23/23 02/23/24 Inhaler] polyethylene glycoL 3350 [Miralax] 17 gm PO DAILY 08/06/23 02/23/24 Acetaminophen Tab [Tylenol] 500 mg PO Q6H PRN 08/19/23 02/23/24 Baclofen 10 mg PO HS PRN 12/10/23 02/23/24 Ibuprofen/Diphenhydramine HCl 2 cap PO HS 12/10/23 02/23/24 [Advil Pm Liqui-Gels] Isosorbide Mononitrate ER [Imdur] 60 mg PO DAILY 12/10/23 02/23/24 predniSONE 5 mg PO DAILY 12/10/23 02/23/24 Donepezil HCl [Aricept] 10 mg PO DAILY 02/23/24 02/23/24 Magnesium(Unknown Dose) 1 tab PO HS 02/23/24 02/23/24 Torsemide [Demadex] 10 mg PO DAILY 02/23/24 02/23/24 Previous Rx's Medication Instructions Recorded Ipratropium-Albuterol Nebulize 3 ml INHALATION RT-QID PRN #20 each 02/25/23 [Duoneb 0.5 mg-3 mg/3 ml Soln] Aspirin 81 mg PO DAILY #30 tab 05/10/23 Atorvastatin [Lipitor] 40 mg PO DAILY #30 tab 05/10/23 Ipratropium-Albuterol Nebulize 3 ml INHALATION RT-QID each 05/10/23 [Duoneb 0.5 mg-3 mg/3 ml Soln] Metoprolol Tartrate [Lopressor] 25 mg PO BID #60 tab 05/10/23 lisinopriL [Zestril] 5 mg PO DAILY #30 tab 05/10/23 Pantoprazole [Protonix] 40 mg PO DAILY #30 tab 05/12/23 Allergies Allergy/AdvReac Type Severity Reaction Status Date / Time No Known Allergies Allergy Verified 02/23/24 14:13 Review of Systems ROS Statement: Those systems with pertinent positive or pertinent negative responses have been documented in the HPI. ROS Other: All systems not noted in ROS Statement are negative. Past Medical History Past Medical History: Coronary Artery Disease (CAD), Heart Failure, COPD, Dementia, GERD/Reflux, Hyperlipidemia, Myocardial Infarction ([place]), Sleep Apnea/CPAP/BIPAP Additional Past Medical History / Comment(s): COPD, obesity, coronary artery disease with previous bypass surgery, cataracts, hiatal hernia, obstructive sleep apnea with CPAP therapy. 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 Mother History Unknown: Yes Family Medical History: CVA/TIA Additional Family Medical History / Comment(s): at age 99 3/4 from a stoke General Exam - General Exam Comments Initial Comments: GENERAL: Patient is well-developed and well-nourished. Patient is nontoxic and well- hydrated and is in mild distress. ENT: Neck is soft and supple. No significant lymphadenopathy is noted. Oropharynx is clear. Moist mucous membranes. Neck has full range of motion without eliciting any pain. EYES: The sclera were anicteric and conjunctiva were pink and moist. Extraocular movements were intact and pupils were equal round and reactive to light. Eyelids were unremarkable. PULMONARY: Unlabored respirations. Good breath sounds bilaterally. No audible rales rhonchi or wheezing was noted. CARDIOVASCULAR: There is a regular rate and rhythm without any murmurs gallops or rubs. ABDOMEN: Soft and nontender with normal bowel sounds. SKIN: Skin is clear with no lesions or rashes and otherwise unremarkable. NEUROLOGIC: Patient is alert and oriented x3. Cranial nerves II through XII are grossly intact. Motor and sensory are also intact. Normal speech, volume and content. Symmetrical smile. MUSCULOSKELETAL: Normal extremities with adequate strength and full range of motion. No lower extremity swelling or edema. No calf tenderness. LYMPHATICS: No significant lymphadenopathy is noted PSYCHIATRIC: Normal psychiatric evaluation. Limitations: no limitations Course Vital Signs 02/23/24 13:16 Temperature 97.7 F Pulse Rate 87 Respiratory 20 Rate Blood Pressure 127/62 O2 Sat by Pulse 95 Oximetry Medical Decision Making - Medical Decision Making EKG is interpreted by myself. EKG shows a sinus rhythm at 86 bpm parables 180 QRS 145 QT interval 425 QTc is 469. Patient's EKG shows a right bundle branch block. Was pt. sent in by a medical professional or institution (, PA, COW TENDER, urgent care, hospital, or skilled nursing...) When possible be specific @ -No Did you speak to anyone other than the patient for history (EMS, parent, family, police, friend...)? What history was obtained from this source @ - gave most of the history because the patient is very hard of hearing Did you review nursing and triage notes (agree or disagree)? Why? @ -I reviewed and agree with nursing and triage notes Were old charts reviewed (outside hosp., previous admission, EMS record, old EKG, old radiological studies, urgent care reports/EKG's, skilled nursing records)? Report findings @ -I compared today's EKG with prior EKGs and there is no acute changes Differential Diagnosis (chest pain, altered mental status, abdominal pain women, abdominal pain men, vaginal bleeding, weakness, fever, dyspnea, syncope, headache, dizziness, GI bleed, back pain, seizure, CVA, palpatations, mental health, musculoskeletal)? @ -Differential Chest Pain: Stable Angina, Unstable Angina, STEMI, NSTEMI Aortic Dissection, Pneumothorax, Musculoskeletal, Esophageal Spasm GERD, Cholecystitis, Pancreatitis, Zoster, this is not meant to be an all-inclusive list. EKG interpreted by me (3pts min.). @ -As above X-rays interpreted by me (1pt min.). @ -Chest x-ray shows no acute abnormality CT interpreted by me (1pt min.). @ -None done U/S interpreted by me (1pt. min.). @ -None done What testing was considered but not performed or refused? (CT, X-rays, U/S, labs)? Why? @ -None What meds were considered but not given or refused? Why? @ -None Did you discuss the management of the patient with other professionals (professionals i.e. , PA, COW TENDER, lab, RT, psych nurse, social media editor, airline pilot, teacher, commanding officer homicide squad, pillowcase cutter)? Give summary @ -I spoke with [facility] they agreed to admit the patient admitted the patient I wrote admitting orders Was smoking cessation discussed for >3mins.? @ -No Was critical care preformed (if so, how long)? @ -No Were there social determinants of health that impacted care today? How? (Homelessness, low income, unemployed, alcoholism, drug addiction, transportation, low edu. Level, literacy, decrease access to med. care, longterm, re hab)? @ -No Was there de-escalation of care discussed even if they declined (Discuss DNR or withdrawal of care, Hospice)? DNR status @ -No What co-morbidities impacted this encounter? (DM, HTN, Smoking, COPD, CAD, Cancer, CVA, ARF, Chemo, Hep., AIDS, mental health diagnosis, sleep apnea, morbid obesity)? @ -None Was patient admitted / discharged? Hospital course, mention meds given and route, prescriptions, significant lab abnormalities, going to OR and other pertinent info. @ -Patient's chest pain was very minimal while in the emergency department. Patient's lab work came back with a very slightly elevated troponin. Patient has extensive history show patient will be admitted with chest pain to [facility] and consult the cardiology Undiagnosed new problem with uncertain prognosis? To @ -No Drug Therapy requiring intensive monitoring for toxicity (Heparin, Nitro, Insu ayan, Cardizem)? @ -No Were any procedures done? @ -No Diagnosis/symptom? @ -Chest pain Acute, or Chronic, or Acute on Chronic? @ -Acute Uncomplicated (without systemic symptoms) or Complicated (systemic symptoms)? @ -Complicated Side effects of treatment? @ -No Exacerbation, Progression, or Severe Exacerbation? @ -No Poses a threat to life or bodily function? How? (Chest pain, [place], [place], pneumonia, PE, COPD, DKA, ARF, appy, cholecystitis, CVA, Diverticulitis, Homicidal, Suicidal, threat to staff... and all critical care pts) @ -Yes this can lead to an [place] and endorgan dysfunction - Lab Data Result diagrams: 02/23/24 13:42 02/23/24 13:42 Lab Results 02/23/24 02/23/24 02/23/24 Range/Units 13:42 13:42 13:42 WBC 6.8 (3.8-10.6) k/uL RBC 4.18 L (4.30-5.90) m/uL Hgb 12.9 L (13.0-17.5) gm/dL Hct 40.0 (39.0-53.0) % MCV 95.7 (80.0-100.0) fL MCH 30.9 (25.0-35.0) pg MCHC 32.3 (31.0-37.0) g/dL RDW 13.7 (11.5-15.5) % Plt Count 137 L (150-450) k/uL MPV 11.0 Neutrophils % 67 % Lymphocytes % 20 % Monocytes % 8 % Eosinophils % 2 % Basophils % 1 % Neutrophils # 4.6 (1.3-7.7) k/uL Lymphocytes # 1.4 (1.0-4.8) k/uL Monocytes # 0.6 (0-1.0) k/uL Eosinophils # 0.2 (0-0.7) k/uL Basophils # 0.0 (0-0.2) k/uL PT 10.1 (10.0-12.5) sec INR 0.9 (<1.2) APTT 23.5 (22.0-30.0) sec Sodium 138 (137-145) mmol/L Potassium 4.5 (3.5-5.1) mmol/L Chloride 106 (98-107) mmol/L Carbon Dioxide 25 (22-30) mmol/L Anion Gap 7 mmol/L BUN 16 (9-20) mg/dL Creatinine 0.97 (0.66-1.25) mg/dL Est GFR (CKD-EPI)AfAm 84 (>60 ml/min/1.73 sqM) Est GFR (CKD-EPI)NonAf 73 (>60 ml/min/1.73 sqM) Glucose 217 H (74-99) mg/dL Calcium 9.2 (8.4-10.2) mg/dL Magnesium 2.3 (1.6-2.3) mg/dL Total Bilirubin 0.8 (0.2-1.3) mg/dL AST 29 (17-59) U/L ALT 21 (4-49) U/L Alkaline Phosphatase 98 (38-126) U/L Troponin I (0.000-0.034) ng/mL NT-Pro-B Natriuret Pep 523 pg/mL Total Protein 6.7 (6.3-8.2) g/dL Albumin 4.1 (3.5-5.0) g/dL 02/23/24 Range/Units 13:42 WBC (3.8-10.6) k/uL RBC (4.30-5.90) m/uL Hgb (13.0-17.5) gm/dL Hct (39.0-53.0) % MCV (80.0-100.0) fL MCH (25.0-35.0) pg MCHC (31.0-37.0) g/dL RDW (11.5-15.5) % Plt Count (150-450) k/uL MPV Neutrophils % % Lymphocytes % % Monocytes % % Eosinophils % % Basophils % % Neutrophils # (1.3-7.7) k/uL Lymphocytes # (1.0-4.8) k/uL Monocytes # (0-1.0) k/uL Eosinophils # (0-0.7) k/uL Basophils # (0-0.2) k/uL PT (10.0-12.5) sec INR (<1.2) APTT (22.0-30.0) sec Sodium (137-145) mmol/L Potassium (3.5-5.1) mmol/L Chloride (98-107) mmol/L Carbon Dioxide (22-30) mmol/L Anion Gap mmol/L BUN (9-20) mg/dL Creatinine (0.66-1.25) mg/dL Est GFR (CKD-EPI)AfAm (>60 ml/min/1.73 sqM) Est GFR (CKD-EPI)NonAf (>60 ml/min/1.73 sqM) Glucose (74-99) mg/dL Calcium (8.4-10.2) mg/dL Magnesium (1.6-2.3) mg/dL Total Bilirubin (0.2-1.3) mg/dL AST (17-59) U/L ALT (4-49) U/L Alkaline Phosphatase (38-126) U/L Troponin I 0.035 H* (0.000-0.034) ng/mL NT-Pro-B Natriuret Pep pg/mL Total Protein (6.3-8.2) g/dL Albumin (3.5-5.0) g/dL Disposition Clinical Impression: Chest pain Disposition: ADMITTED IP TO THIS HOSP Referrals: Doretha Rose MD [Primary Care Provider] - 1-2 days Time of Disposition: 15:05
[2024-02-23] MEDS: ASPIRIN 81 MG PO STA (13:39)
[2024-02-23] MEDS: NITROGLYCERIN OINT 1 INCH/GM PACKET TOPICAL STA (13:40)
[2024-02-23 13:52] LABS: Basophils % (A) 1 %; Eosinophils # (A) 0.2 k/uL (0-0.7); Eosinophils % (A) 2 %; HGB 12.9 gm/dL (13.0-17.5); Lymphocytes # (A) 1.4 k/uL (1.0-4.8); Lymphocytes % (A) 20 %; MCH 30.9 pg (25.0-35.0); MCHC 32.3 g/dL (31.0-37.0); MCV 95.7 fL (80.0-100.0); Monocytes # (A) 0.6 k/uL (0-1.0); Monocytes % (A) 8 %; Neutrophils # (A) 4.6 k/uL (1.3-7.7); Neutrophils % (A) 67 %; Platelet Count 137 k/uL (150-450); RBC 4.18 m/uL (4.30-5.90); RDW 13.7 % (11.5-15.5); WBC 6.8 k/uL (3.8-10.6)
[2024-02-23 14:00] LABS: INR 0.9 (<1.2); Partial Thromboplastin Time 23.5 sec (22.0-30.0); Prothrombin Time 10.1 sec (10.0-12.5)
--- NOTE | 2024-02-23 14:01 | XR ---
EXAMINATION TYPE: XR chest 2V DATE OF EXAM: 02/23/2024 1:53 PM CLINICAL INDICATION:Male, 83 years old with history of Chest Pain; [facility] COMPARISON: Chest radiographs from 01/09/2024 TECHNIQUE: XR chest 2V Frontal and lateral views of the chest. FINDINGS: Lungs/Pleura: There is no evidence of pleural effusion, focal consolidation, or pneumothorax. Pulmonary vascularity: Pulmonary vascular congestion. Heart/mediastinum: Cardiomediastinal silhouette is enlarged and stable. Musculoskeletal: No acute osseous pathology. Midline sternotomy wires are noted. Other findings: None Lines/Tubes: IMPRESSION: Cardiomegaly and mild pulmonary vascular congestion. Correlate with BNP for congestive heart failure.
[2024-02-23 14:13] LABS: ALT 21 U/L (4-49); AST 29 U/L (17-59); African American GFR (CKD) 84 (>60 ml/min/1.73 sqM); Albumin 4.1 g/dL (3.5-5.0); Alkaline Phosphatase 98 U/L (38-126); Anion Gap 7 mmol/L; Blood Urea Nitrogen 16 mg/dL (9-20); Calcium 9.2 mg/dL (8.4-10.2); Carbon Dioxide 25 mmol/L (22-30); Chloride 106 mmol/L (98-107); Glucose 217 mg/dL (74-99); Magnesium 2.3 mg/dL (1.6-2.3); Non-African American GFR(CKD) 73 (>60 ml/min/1.73 sqM); Sodium 138 mmol/L (137-145); Total Bilirubin 0.8 mg/dL (0.2-1.3); Total Protein 6.7 g/dL (6.3-8.2)
[2024-02-23 14:17] LABS: Potassium 4.5 mmol/L (3.5-5.1)
[2024-02-23 14:18] LABS: NT-Pro-B-Type Natriuretic Pept 523 pg/mL
[2024-02-23] MEDS ORDERED: NITROGLYCERIN SL TABS 0.4 MG TAB SUBLINGUAL PRN (15:05)
[2024-02-23] MEDS: NITROGLYCERIN OINT 1 INCH/GM PACKET TOPICAL SCH (18:13)
[2024-02-24] MEDS: diphenhydrAMINE 25 MG CAP PO STA (00:44)
[2024-02-24] MEDS: ACETAMINOPHEN TAB 325 MG TAB PO STA (00:44)
[2024-02-24 08:46] LABS: Basophils # (A) 0.1 k/uL (0-0.2); Basophils % (A) 1 %; Eosinophils # (A) 0.3 k/uL (0-0.7); Eosinophils % (A) 5 %; HCT 38.1 % (39.0-53.0); HGB 12.2 gm/dL (13.0-17.5); Lymphocytes # (A) 1.1 k/uL (1.0-4.8); Lymphocytes % (A) 20 %; MCH 30.6 pg (25.0-35.0); MCHC 32.1 g/dL (31.0-37.0); MCV 95.3 fL (80.0-100.0); Mean Platelet Volume 12.1; Monocytes # (A) 0.5 k/uL (0-1.0); Monocytes % (A) 10 %; Neutrophils # (A) 3.1 k/uL (1.3-7.7); Neutrophils % (A) 60 %; Platelet Count 111 k/uL (150-450); RDW 13.5 % (11.5-15.5); WBC 5.2 k/uL (3.8-10.6)
[2024-02-24 09:00] LABS: Prothrombin Time 10.8 sec (10.0-12.5)
[2024-02-24] MEDS ORDERED: ASPIRIN 325 MG TAB PO SCH (09:00)
[2024-02-24] MEDS: lisinopriL 5 MG TAB PO SCH (09:02)
[2024-02-24] MEDS: EZETIMIBE 10 MG TAB PO SCH (09:02)
[2024-02-24] MEDS: ASPIRIN 81 MG PO SCH (09:02)
[2024-02-24] MEDS: ISOSORBIDE MONONITRATE ER 60 MG TAB.ER.24H PO SCH (09:02)
[2024-02-24] MEDS: ATORVASTATIN 40 MG TAB PO SCH (09:03)
[2024-02-24] MEDS: METOPROLOL TARTRATE 25 MG TAB PO SCH (09:03)
[2024-02-24 09:11] LABS: Chol/HDL Ratio 3.51 Ratio; LDL Cholesterol,Calculated 89.9 mg/dL (0.0-131.0)
[2024-02-24] MEDS: HEPARIN SODIUM 1,000 UN/ML (10ML VL) IV ONE (09:11)
[2024-02-24] MEDS: HEPARIN SOD,PORK IN 0.45% NACL 25,000 UNIT in 0.45% NACL 1 250ML.BAG IV SCH (09:12)
--- NOTE | 2024-02-24 11:06 | P.CRDCN ---
History of Present Illness History of present illness: HISTORY OF PRESENT ILLNESS: This is a 83-year-old male with a past medical history significant for coronary artery disease with previous CABG and subsequent stenting, hypertension, hyperl ipidemia, COPD, and aortic stenosis. Patient follows with a advertising vice president in [place], Dr. Vuong. We have been asked to see the patient in consultation for chest pain. Patient examined at the bedside in the emergency room. Patient states he presented to the hospital for chief complaint of chest pain. He states he was at home watching TV when he began to have chest pain across his entire chest. He states this discomfort felt very similar to his episode in December when he required stenting. He also reports he has been taking sublingual nitro over the past few days with relief of his discomfort. At the time of examination, the patient denies any chest pain or pressure. Vital signs are stable. Patient states he has been compliant with all of his medications on an outpatient basis. DIAGNOSTICS: - EKG reveals sinus mechanism with right bundle branch block. - Chest xray cardiomegaly and mild pulmonary vascular congestion. - Laboratory data: WBC 5.2. Hemoglobin 12.2. Platelet count 111. Sodium 138. Potassium 4.5. BUN 16. Creatinine 0.97. Troponin 0.035. 0.042. 0.049. - Current home cardiac medications include aspirin 81 mg daily, Lipitor 40 mg daily, Plavix 75 mg daily, Zetia 10 mg daily, Imdur 60 mg daily, Toprol tartrate 25 mg twice a day, Demadex 10 mg daily, lisinopril 5 mg daily. - Most recent echocardiogram obtained in July 2023 revealed ejection fra ction 50 to 55%, mild to moderate mitral regurgitation, moderate to severe aortic stenosis, and mild tricuspid regurgitation. - Cardiac catheterization history: 01/09/2024 revealing severe triple-vessel coronary artery disease, patent HERNANDEZ to LAD, patent SVG to left circumflex and critical disease involving radial artery bypass to PDA of RCA. Patient underwent stenting of the PDA of the RCA. REVIEW OF SYSTEMS: At the time of my exam: CONSTITUTIONAL: Denies fever or chills. HEENT: Denies blurred vision, vision changes, or eye pain. Denies hemoptysis CARDIOVASCULAR: Denies chest pain. Denies orthopnea. Denies PND. Denies palpitations RESPIRATORY: Denies shortness of breath. GASTROINTESTINAL: Denies abdominal pain. Denies nausea or vomiting. HEMATOLOGIC: Denies bleeding disorders. GENITOURINARY: Denies any blood in urine. SKIN: Denies pruitis. Denies rash. PHYSICAL EXAM: VITAL SIGNS: Reviewed. GENERAL: Well-developed in no acute distress. HEENT: Head is normocephalic. Pupils are equal, round. Sclerae anicteric. Mucous membranes of the mouth are moist. Neck supple. No JVD or thyromegaly LUNGS: Respirations even and unlabored. Lungs essentially clear to auscultation bilaterally. HEART: Regular rate and rhythm. S1 and S2 heard. Systolic murmur noted. ABDOMEN: Soft. Nondistended. Nontender. EXTREMITIES: Normal range of motion. No clubbing or cyanosis. Peripheral pulses intact. No lower extremity edema NEUROLOGIC: Awake and alert. Oriented x 3. ASSESSMENT: Non-STEMI Coronary artery disease with previous CABG and subsequent stenting, most recently of PDA to RCA, December 2023 Moderate to severe aortic stenosis Chronic heart failure with preserved EF, currently euvolemic Hypertension Hyperlipidemia COPD Obesity: BMI 31.9 PLAN: Obtain 2D echo to assess cardiac structure and function Begin IV heparin Continue dual antiplatelet therapy with aspirin and Plavix due to recent stenting Continue additional home cardiac medications including statin therapy and Imdur Will continue with medical management at this time Further recommendations pending patient course Nurse practitioner note has been reviewed by physician. Signing provider agrees with the documented findings, assessment, and plan of care documented by [employer] as a scribe. Past Medical History Past Medical History: Coronary Artery Disease (CAD), Heart Failure, COPD, Dementia, GERD/Reflux, Hyperlipidemia, Myocardial Infarction ([place]), Sleep Apnea/CPAP/BIPAP Additional Past Medical History / Comment(s): COPD, obesity, coronary artery disease with previous bypass surgery, cataracts, hiatal hernia, obstructive sleep apnea with CPAP therapy. 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 Mother History Unknown: Yes Family Medical History: CVA/TIA Additional Family Medical History / Comment(s): at age 99 3/4 from a stoke Medications and Allergies Home Medications Medication Instructions Recorded Confirmed Type Ezetimibe [Zetia] 10 mg PO DAILY 02/13/16 02/23/24 History Nitroglycerin Sl Tabs [Nitrostat] 0.4 mg SL Q5M PRN 06/22/16 02/23/24 History clonazePAM [KlonoPIN] 0.5 mg PO DAILY PRN 06/22/16 02/23/24 History Clopidogrel [Plavix] 75 mg PO HS 10/20/19 02/23/24 History DULoxetine HCL [Cymbalta] 60 mg PO DAILY 07/19/21 02/23/24 History Fluticasone/Umeclidin/Vilanter 1 puff INHALATION RT-DAILY 03/06/22 02/23/24 History [Walker Ellipta 100-62.5-25] Albuterol Inhaler [Ventolin Hfa 2 puff INHALATION RT-QID PRN 02/23/23 02/23/24 History Inhaler] Ipratropium-Albuterol Nebulize 3 ml INHALATION RT-QID PRN #20 each 02/25/23 02/23/24 Rx [Duoneb 0.5 mg-3 mg/3 ml Soln] Aspirin 81 mg PO DAILY #30 tab 05/10/23 02/23/24 Rx Atorvastatin [Lipitor] 40 mg PO DAILY #30 tab 05/10/23 02/23/24 Rx Ipratropium-Albuterol Nebulize 3 ml INHALATION RT-QID each 05/10/23 02/23/24 Rx [Duoneb 0.5 mg-3 mg/3 ml Soln] Metoprolol Tartrate [Lopressor] 25 mg PO BID #60 tab 05/10/23 02/23/24 Rx lisinopriL [Zestril] 5 mg PO DAILY #30 tab 05/10/23 02/23/24 Rx Pantoprazole [Protonix] 40 mg PO DAILY #30 tab 05/12/23 02/23/24 Rx polyethylene glycoL 3350 [Miralax] 17 gm PO DAILY 08/06/23 02/23/24 History Acetaminophen Tab [Tylenol] 500 mg PO Q6H PRN 08/19/23 02/23/24 History Baclofen 10 mg PO HS PRN 12/10/23 02/23/24 History Ibuprofen/Diphenhydramine HCl 2 cap PO HS 12/10/23 02/23/24 History [Advil Pm Liqui-Gels] Isosorbide Mononitrate ER [Imdur] 60 mg PO DAILY 12/10/23 02/23/24 History predniSONE 5 mg PO DAILY 12/10/23 02/23/24 History Donepezil HCl [Aricept] 10 mg PO DAILY 02/23/24 02/23/24 History Magnesium(Unknown Dose) 1 tab PO HS 02/23/24 02/23/24 History Torsemide [Demadex] 10 mg PO DAILY 02/23/24 02/23/24 History Allergies Allergy/AdvReac Type Severity Reaction Status Date / Time No Known Allergies Allergy Verified 02/23/24 14:13 Physical Exam Vitals: Vital Signs Temp Pulse Resp BP Pulse Ox 02/24/24 04:00 72 21 118/65 02/24/24 02:00 72 17 119/63 02/24/24 00:00 78 17 119/64 96 02/23/24 22:00 78 16 109/62 96 02/23/24 20:00 78 28 H 117/66 02/23/24 18:03 80 16 120/64 95 02/23/24 14:58 79 18 129/56 97 02/23/24 13:16 97.7 F 87 20 127/62 95 Results 02/24/24 08:19 02/23/24 13:42 Cardiac Enzymes 02/23/24 02/23/24 02/23/24 Range/Units 13:42 13:42 16:24 AST 29 (17-59) U/L Troponin I 0.035 H* 0.042 H* (0.000-0.034) ng/mL 02/23/24 Range/Units 19:32 AST (17-59) U/L Troponin I 0.049 H* (0.000-0.034) ng/mL Coagulation 02/23/24 Range/Units 13:42 PT 10.1 (10.0-12.5) sec APTT 23.5 (22.0-30.0) sec CBC 02/23/24 Range/Units 13:42 WBC 6.8 (3.8-10.6) k/uL RBC 4.18 L (4.30-5.90) m/uL Hgb 12.9 L (13.0-17.5) gm/dL Hct 40.0 (39.0-53.0) % Plt Count 137 L (150-450) k/uL Comprehensive Metabolic Panel 02/23/24 Range/Units 13:42 Sodium 138 (137-145) mmol/L Potassium 4.5 (3.5-5.1) mmol/L Chloride 106 (98-107) mmol/L Carbon Dioxide 25 (22-30) mmol/L BUN 16 (9-20) mg/dL Creatinine 0.97 (0.66-1.25) mg/dL Glucose 217 H (74-99) mg/dL Calcium 9.2 (8.4-10.2) mg/dL AST 29 (17-59) U/L ALT 21 (4-49) U/L Alkaline Phosphatase 98 (38-126) U/L Total Protein 6.7 (6.3-8.2) g/dL Albumin 4.1 (3.5-5.0) g/dL Current Medications Generic Name Dose Route Start Last Admin Trade Name Freq PRN Reason Stop Dose Admin Aspirin 325 mg 02/24/24 09:00 Aspirin 325 Mg Tab PO DAILY [facility] Nitroglycerin 0.4 mg 02/23/24 15:05 Nitroglycerin Sl Tabs 0.4 Mg Tab SUBLINGUAL Q5M PRN Chest Pain Nitroglycerin 1 inch 02/23/24 18:00 02/23/24 23:11 Nitroglycerin Oint 1 Inch/Gm Packet TOPICAL 1 inch Q6HR ASA Administration 02/23/24 13:42 02/23/24 13:42
[2024-02-24] MEDS ORDERED: clonazePAM 0.5 MG TAB PO PRN (11:28)
[2024-02-24] MEDS ORDERED: NITROGLYCERIN SL TABS 0.4 MG TAB SUBLINGUAL PRN (11:28)
[2024-02-24] MEDS ORDERED: ALBUTEROL NEBULIZED 2.5 MG/3 ML INHALATION PRN (11:28)
--- NOTE | 2024-02-24 11:34 | P.HPIM ---
History of Present Illness Patient pleasant 83-year-old male with known history of coronary artery disease CABG and subsequent stenting of the PDA of the RCA, came in with complaints of chest pressure-like sensation which started last night nonexertional started at rest mild to moderate severity nonradiating associate with some nausea denies any vomiting took sublingual nitroglycerin with relief of his discomfort patient presently denies any chest discomfort at this time patient is undergoing echocardiogram and evaluate the patient patient had a EKG which showed right bundle branch block without any acute ST-T wave changes patient troponins are slightly elevated to 0.035, 0.042, 0.049. Patient had a normal echocardiogram with moderate aortic stenosis and normal ejection fraction and normal 2023. Patient denies any fever chills cough chest x-ray did not show any pneumonia but read as mild pulmonary vascular congestion, patient's BNP is 523 patient takes torsemide at home. REVIEW OF SYSTEMS: CONSTITUTIONAL: No fever, no malaise, no fatigue. HEENT: No recent visual problems or hearing problems. Denied any sore throat. CARDIOVASCULAR: No orthopnea, PND, no palpitations, no syncope. PULMONARY: No shortness of breath, no cough, no hemoptysis. GASTROINTESTINAL: No diarrhea, no nausea, no vomiting, no abdominal pain. NEUROLOGICAL: No headaches, no weakness, no numbness. HEMATOLOGICAL: Denies any bleeding or petechiae. GENITOURINARY: Denies any burning micturition, frequency, or urgency. MUSCULOSKELETAL/RHEUMATOLOGICAL: Denies any joint pain, swelling, or any muscle pain. ENDOCRINE: Denies any polyuria or polydipsia. The rest of the 14-point review of systems is negative. PHYSICAL EXAMINATION: GENERAL: The patient is alert and oriented x3, not in any acute distress. Well developed, well nourished. HEENT: Pupils are round and equally reacting to light. EOMI. No scleral icterus. No conjunctival pallor. Normocephalic, atraumatic. No pharyngeal erythema. No thyromegaly. CARDIOVASCULAR: S1 and S2 present. No murmurs, rubs, or gallops. PULMONARY: Chest is clear to auscultation, no wheezing or crackles. ABDOMEN: Soft, nontender, nondistended, normoactive bowel sounds. No palpable organomegaly. MUSCULOSKELETAL: No joint swelling or deformity. EXTREMITIES: No cyanosis, clubbing, or pedal edema. NEUROLOGICAL: Gross neurological examination did not reveal any focal deficits. SKIN: No rashes. Assessment and plan -Possible acute non-ST elevation myocardial infarction: Patient will be continued on IV heparin cardiology evaluate the patient patient is undergoing echocardiogram depending on the echocardiogram further management will be decided -Moderate to severe aortic stenosis -Congestive heart failure with preserved ejection fraction patient is euvolemic patient is on torsemide probably can be resumed -Hypertension -Hyperlipidemia -COPD without any acute exacerbation -Obesity, sleep apnea uses CPAP machine -Gastroesophageal reflux disease for which patient is on Protonix at home since patient had a recent stent and is on dual antiplatelet therapy I will start him on Pepcid, chest pain can be secondary to gastroesophageal reflux disease -Elevated blood sugars will obtain a hemoglobin A1c patient will be on sliding scale insulin DVT prophylaxis: On IV heparin Past Medical History Past Medical History: Coronary Artery Disease (CAD), Heart Failure, COPD, Dementia, GERD/Reflux, Hyperlipidemia, Myocardial Infarction (AR), Sleep Apnea/CPAP/BIPAP Additional Past Medical History / Comment(s): COPD, obesity, coronary artery disease with previous bypass surgery, cataracts, hiatal hernia, obstructive sleep apnea with CPAP therapy. 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 Mother History Unknown: Yes Family Medical History: CVA/TIA Additional Family Medical History / Comment(s): at age 99 3/4 from a stoke Medications and Allergies Home Medications Medication Instructions Recorded Confirmed Type Ezetimibe [Zetia] 10 mg PO DAILY 02/12/02/23/24 History Nitroglycerin Sl Tabs [Nitrostat] 0.4 mg SL Q5M PRN 06/22/16 02/23/24 History clonazePAM [KlonoPIN] 0.5 mg PO DAILY PRN 06/22/16 02/23/24 History Clopidogrel [Plavix] 75 mg PO HS 10/20/19 02/23/24 History DULoxetine HCL [Cymbalta] 60 mg PO DAILY 07/19/21 02/23/24 History Fluticasone/Umeclidin/Vilanter 1 puff INHALATION RT-DAILY 03/06/22 02/23/24 History [Trelegy Ellipta 100-62.5-25] Albuterol Inhaler [Ventolin Hfa 2 puff INHALATION RT-QID PRN 02/23/23 02/23/24 History Inhaler] Ipratropium-Albuterol Nebulize 3 ml INHALATION RT-QID PRN #20 each 02/25/23 02/23/24 Rx [Duoneb 0.5 mg-3 mg/3 ml Soln] Aspirin 81 mg PO DAILY #30 tab 05/10/23 02/23/24 Rx Atorvastatin [Lipitor] 40 mg PO DAILY #30 tab 05/10/23 02/23/24 Rx Ipratropium-Albuterol Nebulize 3 ml INHALATION RT-QID each 05/10/23 02/23/24 Rx [Duoneb 0.5 mg-3 mg/3 ml Soln] Metoprolol Tartrate [Lopressor] 25 mg PO BID #60 tab 05/10/23 02/23/24 Rx lisinopriL [Zestril] 5 mg PO DAILY #30 tab 05/10/23 02/23/24 Rx Pantoprazole [Protonix] 40 mg PO DAILY #30 tab 05/12/23 02/23/24 Rx polyethylene glycoL 3350 [Miralax] 17 gm PO DAILY 08/06/23 02/23/24 History Acetaminophen Tab [Tylenol] 500 mg PO Q6H PRN 08/19/23 02/23/24 History Baclofen 10 mg PO HS PRN 12/10/23 02/23/24 History Ibuprofen/Diphenhydramine HCl 2 cap PO HS 12/10/23 02/23/24 History [Advil Pm Liqui-Gels] Isosorbide Mononitrate ER [Imdur] 60 mg PO DAILY 12/10/23 02/23/24 History predniSONE 5 mg PO DAILY 12/10/23 02/23/24 History Donepezil HCl [Aricept] 10 mg PO DAILY 02/23/24 02/23/24 History Magnesium(Unknown Dose) 1 tab PO HS 02/23/24 02/23/24 History Torsemide [Demadex] 10 mg PO DAILY 02/23/24 02/23/24 History Allergies Allergy/AdvReac Type Severity Reaction Status Date / Time No Known Allergies Allergy Verified 02/23/24 14:13 Physical Exam Vitals: Vital Signs Temp Pulse Resp BP Pulse Ox 02/24/24 09:00 73 18 129/73 96 02/24/24 08:24 96 02/24/24 04:00 72 21 118/65 02/24/24 02:00 72 17 119/63 02/24/24 00:00 78 17 119/64 96 02/23/24 22:00 78 16 109/62 96 02/23/24 20:00 78 28 H 117/66 02/23/24 18:03 80 16 120/64 95 02/23/24 14:58 79 18 129/56 97 02/23/24 13:16 97.7 F 87 20 127/62 95 Results CBC & Chem 7: 02/24/24 08:19 02/23/24 13:42 Labs: Abnormal Lab Results - Last 24 Hours (Table) 02/23/24 02/23/24 02/23/24 Range/Units 13:42 13:42 13:42 RBC 4.18 L (4.30-5.90) m/uL Hgb 12.9 L (13.0-17.5) gm/dL Hct (39.0-53.0) % Plt Count 137 L (150-450) k/uL Glucose 217 H (74-99) mg/dL Troponin I 0.035 H* (0.000-0.034) ng/mL 02/23/24 02/23/24 02/24/24 Range/Units 16:24 19:32 08:19 RBC 4.00 L (4.30-5.90) m/uL Hgb 12.2 L (13.0-17.5) gm/dL Hct 38.1 L (39.0-53.0) % Plt Count 111 L (150-450) k/uL Glucose (74-99) mg/dL Troponin I 0.042 H* 0.049 H* (0.000-0.034) ng/mL
[2024-02-24 11:50] LABS: Glucose,Whole Blood 155 mg/dL (70-110)
[2024-02-24] MEDS: IPRATROPIUM 0.5 MG/2.5 ML NEBU INHALATION SCH (12:31)
[2024-02-24] MEDS: INSULIN ASPART (NovoLOG) 100 UNIT/ML VIAL SQ SCH (12:38)
[2024-02-24] MEDS: DULoxetine HCL 60 MG CAPSULE.DR PO SCH (12:38)
[2024-02-24] MEDS: IPRATROPIUM-ALBUTEROL 3 ML NEB INHALATION PRN (15:50)
[2024-02-24 16:38] LABS: Glucose,Whole Blood 119 mg/dL (70-110)
[2024-02-24] MEDS: HEPARIN SODIUM 1,000 UN/ML (10ML VL) IV PRN (17:35)
[2024-02-24 19:21] LABS: Glucose,Whole Blood 156 mg/dL (70-110)
[2024-02-24] MEDS: SYMBICORT 80-4.5 MCG INHALER INHALATION SCH (21:07)
[2024-02-24] MEDS: CLOPIDOGREL 75 MG TAB PO SCH (21:34)
[2024-02-24] MEDS: MAGNESIUM OXIDE 400 MG TAB PO SCH (21:34)
[2024-02-24] MEDS: BACLOFEN 10 MG TAB PO PRN (22:37)
[2024-02-25] MEDS: ACETAMINOPHEN TAB 500 MG TAB PO PRN (01:59)
[2024-02-25 06:11] LABS: Glucose,Whole Blood 111 mg/dL (70-110)
[2024-02-25 07:18] LABS: INR 0.9 (<1.2); Prothrombin Time 10.5 sec (10.0-12.5)
[2024-02-25] MEDS ORDERED: NON FORMULARY DRUG (Fluticasone/Umeclidin/Vilanter [Trelegy Ellipta 100-62.5-25] 1 EACH Bl INHALATION SCH (08:00)
[2024-02-25 08:24] LABS: Basophils # (A) 0.1 k/uL (0-0.2); Basophils % (A) 1 %; Eosinophils # (A) 0.3 k/uL (0-0.7); Eosinophils % (A) 5 %; HCT 38.7 % (39.0-53.0); HGB 12.7 gm/dL (13.0-17.5); Lymphocytes # (A) 1.4 k/uL (1.0-4.8); Lymphocytes % (A) 25 %; MCH 31.1 pg (25.0-35.0); MCHC 32.9 g/dL (31.0-37.0); MCV 94.6 fL (80.0-100.0); Mean Platelet Volume 10.7; Monocytes # (A) 0.5 k/uL (0-1.0); Monocytes % (A) 9 %; Neutrophils # (A) 3.2 k/uL (1.3-7.7); Neutrophils % (A) 57 %; Platelet Count 127 k/uL (150-450); RBC 4.08 m/uL (4.30-5.90); RDW 13.4 % (11.5-15.5); WBC 5.7 k/uL (3.8-10.6)
[2024-02-25 08:58] LABS: African American GFR (CKD) 87 (>60 ml/min/1.73 sqM); Anion Gap 7 mmol/L; Blood Urea Nitrogen 14 mg/dL (9-20); Calcium 8.6 mg/dL (8.4-10.2); Carbon Dioxide 21 mmol/L (22-30); Chloride 106 mmol/L (98-107); Glucose 109 mg/dL (74-99); Non-African American GFR(CKD) 76 (>60 ml/min/1.73 sqM); Potassium 4.3 mmol/L (3.5-5.1); Sodium 134 mmol/L (137-145)
[2024-02-25] MEDS: TORSEMIDE 20 MG TAB PO SCH (09:40)
[2024-02-25] MEDS: ASPIRIN 81 MG PO SCH (09:40)
[2024-02-25] MEDS: DONEPEZIL 10 MG TAB PO SCH (09:40)
[2024-02-25] MEDS: polyethylene glycoL 3350 17 GM POWD.PACK PO PRN (09:43)
[2024-02-25 11:22] LABS: Glucose,Whole Blood 116 mg/dL (70-110)
[2024-02-25] MEDS: RANOLAZINE 500 MG TAB.ER.12H PO SCH (11:56)
--- NOTE | 2024-02-25 12:28 | P.PN ---
Subjective HISTORY OF PRESENT ILLNESS: This is a 83-year-old male with a past medical history significant for coronary artery disease with previous CABG and subsequent stenting, hypertension, hyperlipidemia, COPD, and aortic stenosis. Patient follows with a net wpf developer in [place], Dr. Vuong. We have been asked to see the patient in consultation for chest pain. Patient examined at the bedside in the emergency room. Patient states he presented to the hospital for chief complaint of chest pain. He states he was at home watching TV when he began to have chest pain across his entire chest. He states this discomfort felt very similar to his episode in December when he required stenting. He also reports he has been taking sublingual nitro over the past few days with relief of his discomfort. At the time of examination, the patient denies any chest pain or pressure. Vital signs are stable. Patient states he has been compliant with all of his medications on an outpatient basis. DIAGNOSTICS: - EKG reveals sinus mechanism with right bundle branch block. - Chest xray cardiomegaly and mild pulmonary vascular congestion. - Laboratory data: WBC 5.2. Hemoglobin 12.2. Platelet count 111. Sodium 138. Potassium 4.5. BUN 16. Creatinine 0.97. Troponin 0.035. 0.042. 0.049. - Current home cardiac medications include aspirin 81 mg daily, Lipitor 40 mg daily, Plavix 75 mg daily, Zetia 10 mg daily, Imdur 60 mg daily, Toprol tartrate 25 mg twice a day, Demadex 10 mg daily, lisinopril 5 mg daily. - Most recent echocardiogram obtained in July 2023 revealed ejection fraction 50 to 55%, mild to moderate mitral regurgitation, moderate to severe aortic stenosis, and mild tricuspid regurgitation. - Cardiac catheterization history: 01/09/2024 revealing severe triple-vessel coronary artery disease, patent HERNANDEZ to LAD, patent SVG to left circumflex and critical disease involving radial artery bypass to PDA of RCA. Patient under went stenting of the PDA of the RCA. 02/25/2024 Patient examined this morning. He is sitting up in the chair. He denies any chest pain or pressure. He denies any shortness of breath. He remains on IV heparin. Vital signs are stable. Blood pressures have been on the lower side yesterday. 2D echo remains pending. PHYSICAL EXAM: VITAL SIGNS: Reviewed. GENERAL: Well-developed in no acute distress. HEENT: Head is normocephalic. Pupils are equal, round. Sclerae anicteric. Mucous membranes of the mouth are moist. Neck supple. No JVD or thyromegaly LUNGS: Respirations even and unlabored. Lungs essentially clear to auscultation bilaterally. HEART: Regular rate and rhythm. S1 and S2 heard. Systolic murmur noted. ABDOMEN: Soft. Nondistended. Nontender. EXTREMITIES: Normal range of motion. No clubbing or cyanosis. Peripheral pulses intact. No lower extremity edema NEUROLOGIC: Awake and alert. Oriented x 3. ASSESSMENT: Non-STEMI Coronary artery disease with previous CABG and subsequent stenting, most recently of PDA to RCA, December 2023 Moderate to severe aortic stenosis Chronic heart failure with preserved EF, currently euvolemic Hypertension Hyperlipidemia COPD Obesity: BMI 31.9 PLAN: 2D echo ordered. Await results. Continue IV heparin for an additional 24 hours Continue dual antiplatelet therapy with aspirin and Plavix due to recent stenting Continue additional home cardiac medications including statin therapy and Imdur Will continue with medical management at this time. No plans for cardiac catheterization. Add Ranexa 500 mg twice a day Increase activity as tolerated Anticipate discharge home tomorrow if patient remains stable with no further episodes of chest pain Nurse practitioner note has been reviewed by physician. Signing provider agrees with the documented findings, assessment, and plan of care documented by PRODUCT EXAMINER as a scribe. Objective - Vital Signs Vital signs: Vital Signs Temp 97.5 F L 02/25/24 09:39 Pulse 72 02/25/24 12:06 Resp 16 02/25/24 11:57 BP 106/55 02/25/24 11:57 Pulse Ox 95 02/25/24 11:57 FiO2 Intake & Output 02/24/24 02/25/24 02/25/24 18:59 06:59 18:59 Intake Total 201.517 358 Balance 201.517 358 Weight 95.254 kg Intake: Intake, IV Titration 83.517 Amount Heparin Sod,Pork in 0.45% 83.517 NaCl 25,000 unit In 0.45 % NaCl 1 250ml.bag @ 10.5 UNITS/KG/HR 10.002 mls/ hr IV .Q24H ASA Rx#: [id number] Oral 118 358 Other: Voiding Method Toilet Toilet Toilet # Voids 1 - Labs CBC & Chem 7: 02/25/24 07:18 02/25/24 07:18 Labs: Abnormal Lab Results - Last 24 Hours (Table) 02/24/24 02/24/24 02/24/24 Range/Units 16:02 16:02 16:37 RBC (4.30-5.90) m/uL Hgb (13.0-17.5) gm/dL Hct (39.0-53.0) % Plt Count (150-450) k/uL APTT 36.1 H (22.0-30.0) sec Sodium (137-145) mmol/L Carbon Dioxide (22-30) mmol/L Glucose (74-99) mg/dL POC Glucose (mg/dL) 119 H (70-110) mg/dL Hemoglobin A1c 6.9 H (<=6.0) % 02/24/24 02/24/24 02/25/24 Range/Units 19:18 23:39 06:10 RBC (4.30-5.90) m/uL Hgb (13.0-17.5) gm/dL Hct (39.0-53.0) % Plt Count (150-450) k/uL APTT 62.8 H (22.0-30.0) sec Sodium (137-145) mmol/L Carbon Dioxide (22-30) mmol/L Glucose (74-99) mg/dL POC Glucose (mg/dL) 156 H 111 H (70-110) mg/dL Hemoglobin A1c (<=6.0) % 02/25/24 02/25/24 02/25/24 Range/Units 07:18 07:18 11:20 RBC 4.08 L (4.30-5.90) m/uL Hgb 12.7 L (13.0-17.5) gm/dL Hct 38.7 L (39.0-53.0) % Plt Count 127 L (150-450) k/uL APTT (22.0-30.0) sec Sodium 134 L (137-145) mmol/L Carbon Dioxide 21 L (22-30) mmol/L Glucose 109 H (74-99) mg/dL POC Glucose (mg/dL) 116 H (70-110) mg/dL Hemoglobin A1c (<=6.0) %
[2024-02-25] MEDS: ONDANSETRON 4 MG/2 ML VIAL IVP PRN (14:48)
--- NOTE | 2024-02-25 16:07 | CA ---
Transthoracic Echo Report Name: Demetrio Cordero Age: 83 Gender: M : 1940 Exam Date: 02/24/2024 10:52 Exam Location: [facility] Ht (in): 68 Wt (lb): 210 Ordering Physician: Deanna Bianchi Attending/Referring Phys: [id number], [facility] Medical Aide Grace Trinidad, [place] Procedure CPT: Indications: LV function, CP, Cardiac Hx: hx of CABG Technical Quality: Technically difficult study Contrast 1: Definity Total Dose (mL): 2 Contrast 2: Total Dose (mL): MEASUREMENTS (Male / Female) Normal Values 2D ECHO LV Diastolic Diameter PLAX 5.9 cm 4.2 - 5.9 / 3.9 - 5.3 cm LV Systolic Diameter PLAX 5.2 cm IVS Diastolic Thickness 1.5 cm 0.6 - 1.0 / 0.6 - 0.9 cm LVPW Diastolic Thickness 1.5 cm 0.6 - 1.0 / 0.6 - 0.9 cm LV Relative Wall Thickness 0.5 RV Internal Dim ED PLAX 3.3 cm LVOT Diameter 2.0 cm LA Systolic Diameter LX 3.7 cm 3.0 - 4.0 / 2.7 - 3.8 cm LA Volume 63.5 cm??? 18 - 58 / 22 - 52 cm??? LA Volume Index 29.3 cm???/m??? 16 - 28 cm???/m??? M-MODE Aortic Root Diameter MM 3.8 cm MV E Point Septal Separation 2.4 cm AV Cusp Separation MM 1.5 cm DOPPLER AV Peak Velocity 323.5 cm/s AV Peak Gradient 41.9 mmHg AV Mean Velocity 287.5 cm/s AV Mean Gradient 36.6 mmHg AV Velocity Time Integral 94.6 cm AI Peak Velocity 355.6 cm/s AI Peak Gradient 50.6 mmHg AI Pressure Half Time 510.2 ms LVOT Peak Velocity 93.8 cm/s LVOT Peak Gradient 3.5 mmHg LVOT Velocity Time Integral 24.9 cm LVOT Stroke Volume 74.9 cm??? LVOT Stroke Volume Index 35.9 ml/m??? LVOT Cardiac Index 2278.7 cm???/min???m??? AV Area Cont Eq vti 0.8 cm??? AV Area Cont Eq pk 0.9 cm??? MV Area PHT 3.8 cm??? MR Peak Velocity 527.6 cm/s MR Peak Gradient 111.4 mmHg Mitral E Point Velocity 93.5 cm/s Mitral A Point Velocity 97.2 cm/s Mitral E to A Ratio 1.0 MV Deceleration Time 201.2 ms TR Peak Velocity 290.6 cm/s TR Peak Gradient 33.8 mmHg Right Ventricular Systolic Press 38.1 mmHg FINDINGS Left Ventricle Left ventricular ejection fraction is estimated at 50-55 %. Moderately increased septal wall thickness. Left ventricular cavity size normal. No obvious regional wall motion abnormalities. Right Ventricle Mild right ventricular dilatation. Mild pulmonary hypertension. Right Atrium Right atrium not well visualized. Left Atrium Mildly increased left atrial volume. Mildly increased left atrial area. Mitral Valve Mitral valve thickened. Mitral annular calcification. Mild mitral regurgitation. Aortic Valve Trileaflet aortic valve. Moderate aortic valve sclerosis. Moderate aortic stenosis with a peak gradient of 42 mmHg and a mean gradient of 37 mmHg. Mild- to-moderate aortic regurgitation. Tricuspid Valve Structurally normal tricuspid valve. [id number] tricuspid regurgitation. Pulmonic Valve Structurally normal pulmonic valve. Mild pulmonic regurgitation. Pericardium No pericardial or pleural effusion. Aorta Mild aortic dilatation at the level of the sinuses of valsalva 38 mm CONCLUSIONS LVH with preserved systolic function with moderate-aortic stenosis with a mean gradient of 37 mmHg Moderate aortic regurgitation Previewed by: Dr. Rome Davila MD (Electronically Signed) Final Date: 25 February 2024 16:05
[2024-02-25 16:59] LABS: Glucose,Whole Blood 185 mg/dL (70-110)
[2024-02-25 20:35] LABS: Glucose,Whole Blood 128 mg/dL (70-110)
--- NOTE | 2024-02-26 00:06 | P.PN ---
Subjective Progress Note Date: 02/25/24 Patient pleasant 83-year-old male with known history of coronary artery disease CABG and subsequent stenting of the PDA of the RCA, came in with complaints of chest pressure-like sensation which started last night nonexertional started at rest mild to moderate severity nonradiating associate with some nausea denies any vomiting took sublingual nitroglycerin with relief of his discomfort patient presently denies any chest discomfort at this time patient is undergoing echocardiogram and evaluate the patient patient had a EKG which showed right bundle branch block without any acute ST-T wave changes patient troponins are slightly elevated to 0.035, 0.042, 0.049. Patient had a normal echocardiogram with moderate aortic stenosis and normal ejection fraction and normal 2022. Patient denies any fever chills cough chest x-ray did not show any pneumonia but read as mild pulmonary vascular congestion, patient's BNP is 523 patient takes torsemide at home. 02/25/2024 Patient is evaluated today sitting up in bed. Patient reports chest pain has resolved. Repeat echocardiogram currently pending at this time. Patient continues on IV heparin. Sodium today 134. 96% on room air. Review of Systems Constitutional: Denied any fatigue denied any fever. Cardio vascular: denied any chest pain, palpitations Gastrointestinal: denied any nausea, vomiting, diarrhea Pulmonary: Denied any shortness of breath cough Neurologic denied any new focal deficits All inpatient medications were reviewed and appropriate changes in these medications as dictated in the interval history and assessment and plan. PHYSICAL EXAMINATION: GENERAL: The patient is alert and oriented x3, not in any acute distress. Well d eveloped, well nourished. HEENT: Pupils are round and equally reacting to light. EOMI. No scleral icterus. No conjunctival pallor. Normocephalic, atraumatic. No pharyngeal erythema. No thyromegaly. CARDIOVASCULAR: S1 and S2 present. No murmurs, rubs, or gallops. PULMONARY: Chest is clear to auscultation, no wheezing or crackles. ABDOMEN: Soft, nontender, nondistended, normoactive bowel sounds. No palpable organomegaly. MUSCULOSKELETAL: No joint swelling or deformity. EXTREMITIES: No cyanosis, clubbing, or pedal edema. NEUROLOGICAL: Gross neurological examination did not reveal any focal deficits. SKIN: No rashes. Assessment and plan -Possible acute non-ST elevation myocardial infarction: Continue current cardiac medications, patient continues on IV heparin and repeat echocardiogram pending. Chest pain resolved at this time. -Moderate to severe aortic stenosis -Congestive heart failure with preserved ejection fraction patient is euvolemic patient is on torsemide which was resumed. -Hypertension -Hyperlipidemia -COPD without any acute exacerbation -Obesity, sleep apnea uses CPAP machine -Gastroesophageal reflux disease for which patient is on Protonix at home since patient had a recent stent and is on dual antiplatelet therapy I will start him on Pepcid, chest pain can be secondary to gastroesophageal reflux disease -Elevated blood sugars will obtain a hemoglobin A1c patient will be on sliding scale insulin GI prophylaxis DVT prophylaxis The impression and plan of care has been dictated by Karolina Joseph Nurse Practitioner as directed. Dr. Pia MD I have performed a history and physical examination and medical decision making of this patient, discussed the same with the dictator, and agree with the dictators assessment and plan as written, documented as a scribe. Based on total visit time, I have performed more than 50% of this visit. Objective - Vital Signs Vital signs: Vital Signs Temp 97.5 F L 02/25/24 09:39 Pulse 72 02/25/24 12:06 Resp 16 02/25/24 11:57 BP 106/55 02/25/24 11:57 Pulse Ox 95 02/25/24 11:57 FiO2 Intake & Output 02/24/24 02/25/24 02/25/24 18:59 06:59 18:59 Intake Total 201.517 358 Balance 201.517 358 Weight 95.254 kg Intake: Intake, IV Titration 83.517 Amount Heparin Sod,Pork in 0.45% 83.517 NaCl 25,000 unit In 0.45 % NaCl 1 250ml.bag @ 10.5 UNITS/KG/HR 10.002 mls/ hr IV .Q24H ASA Rx#: [id number] Oral 118 358 Other: Voiding Method Toilet Toilet Toilet # Voids 1 2 - Labs CBC & Chem 7: 02/25/24 07:18 02/25/24 07:18 Labs: Abnormal Lab Results - Last 24 Hours (Table) 02/24/24 02/24/24 02/24/24 Range/Units 16:02 16:02 16:37 RBC (4.30-5.90) m/uL Hgb (13.0-17.5) gm/dL Hct (39.0-53.0) % Plt Count (150-450) k/uL APTT 36.1 H (22.0-30.0) sec Sodium (137-145) mmol/L Carbon Dioxide (22-30) mmol/L Glucose (74-99) mg/dL POC Glucose (mg/dL) 119 H (70-110) mg/dL Hemoglobin A1c 6.9 H (<=6.0) % 02/24/24 02/24/24 02/25/24 Range/Units 19:18 23:39 06:10 RBC (4.30-5.90) m/uL Hgb (13.0-17.5) gm/dL Hct (39.0-53.0) % Plt Count (150-450) k/uL APTT 62.8 H (22.0-30.0) sec Sodium (137-145) mmol/L Carbon Dioxide (22-30) mmol/L Glucose (74-99) mg/dL POC Glucose (mg/dL) 156 H 111 H (70-110) mg/dL Hemoglobin A1c (<=6.0) % 02/25/24 02/25/24 02/25/24 Range/Units 07:18 07:18 11:20 RBC 4.08 L (4.30-5.90) m/uL Hgb 12.7 L (13.0-17.5) gm/dL Hct 38.7 L (39.0-53.0) % Plt Count 127 L (150-450) k/uL APTT (22.0-30.0) sec Sodium 134 L (137-145) mmol/L Carbon Dioxide 21 L (22-30) mmol/L Glucose 109 H (74-99) mg/dL POC Glucose (mg/dL) 116 H (70-110) mg/dL Hemoglobin A1c (<=6.0) % Assessment and Plan Time with Patient: Less than 30
[2024-02-26 06:20] LABS: Glucose,Whole Blood 99 mg/dL (70-110)
[2024-02-26 08:34] VITALS: BP 127/72; RESP 16; TEMP 97.9
[2024-02-26 11:42] LABS: Glucose,Whole Blood 100 mg/dL (70-110)
[2024-02-26 12:23] VITALS: PULSE 76
--- NOTE | 2024-02-26 13:21 | P.PN ---
Subjective HISTORY OF PRESENT ILLNESS: This is a 83-year-old male with a past medical history significant for coronary artery disease with previous CABG and subsequent stenting, hypertension, hyperlipidemia, COPD, and aortic stenosis. Patient follows with a cable television technician in [place], Dr. Vuong. We have been asked to see the patient in consultation for chest pain. Patient examined at the bedside in the emergency room. Patient states he presented to the hospital for chief complaint of chest pain. He states he was at home watching TV when he began to have chest pain across his entire chest. He states this discomfort felt very similar to his episode in December when he required stenting. He also reports he has been taking sublingual nitro over the past few days with relief of his discomfort. At the time of examination, the patient denies any chest pain or pressure. Vital signs are stable. Patient states he has been compliant with all of his medications on an outpatient basis. DIAGNOSTICS: - EKG reveals sinus mechanism with right bundle branch block. - Chest xray cardiomegaly and mild pulmonary vascular congestion. - Laboratory data: WBC 5.2. Hemoglobin 12.2. Platelet count 111. Sodium 138. Potassium 4.5. BUN 16. Creatinine 0.97. Troponin 0.035. 0.042. 0.049. - Current home cardiac medications include aspirin 81 mg daily, Lipitor 40 mg daily, Plavix 75 mg daily, Zetia 10 mg daily, Imdur 60 mg daily, Toprol tartrate 25 mg twice a day, Demadex 10 mg daily, lisinopril 5 mg daily. - Most recent echocardiogram obtained in July 2023 revealed ejection fraction 50 to 55%, mild to moderate mitral regurgitation, moderate to severe aortic stenosis, and mild tricuspid regurgitation. - Cardiac catheterization history: 01/09/2024 revealing severe triple-vessel coronary artery disease, patent HERNANDEZ to LAD, patent SVG to left circumflex and critical disease involving radial artery bypass to PDA of RCA. Patient under went stenting of the PDA of the RCA. 02/25/2024 Patient examined this morning. He is sitting up in the chair. He denies any chest pain or pressure. He denies any shortness of breath. He remains on IV heparin. Vital signs are stable. Blood pressures have been on the lower side yesterday. 2D echo remains pending. 02/26/2024 Patient examined this morning. He is sitting up in the chair. Patient denies any further episodes of chest pain or pressure. He denies any shortness of breath. Patient has been up ambulating in the hallway without shortness of breath or chest pain. Vital signs are stable. 2D echo revealed ejection fraction 5055% with moderate aortic stenosis and moderate aortic regurgitation PHYSICAL EXAM: VITAL SIGNS: Reviewed. GENERAL: Well-developed in no acute distress. HEENT: Head is normocephalic. Pupils are equal, round. Sclerae anicteric. Mucous membranes of the mouth are moist. Neck supple. No JVD or thyromegaly LUNGS: Respirations even and unlabored. Lungs essentially clear to auscultation bilaterally. HEART: Regular rate and rhythm. S1 and S2 heard. Systolic murmur noted. ABDOMEN: Soft. Nondistended. Nontender. EXTREMITIES: Normal range of motion. No clubbing or cyanosis. Peripheral pulses intact. No lower extremity edema NEUROLOGIC: Awake and alert. Oriented x 3. ASSESSMENT: Non-STEMI Coronary artery disease with previous CABG and subsequent stenting, most recently of PDA to RCA, December 2023 Moderate to severe aortic stenosis Chronic heart failure with preserved EF, currently euvolemic Hypertension Hyperlipidemia COPD Obesity: BMI 31.9 PLAN: Continue current cardiac medications Patient is stable for discharge home today from a cardiac standpoint Patient is to follow-up postdischarge with his primary cable television technician, Dr. Vuong Nurse practitioner note has been reviewed by physician. Signing provider agrees with the documented findings, assessment, and plan of care documented by [employer] PR[employer] as a scribe. Objective - Vital Signs Vital signs: Vital Signs Temp 97.9 F 02/26/24 08:33 Pulse 76 02/26/24 12:22 Resp 16 02/26/24 08:33 BP 127/72 02/26/24 08:33 Pulse Ox 97 02/26/24 08:33 FiO2 Intake & Output 02/25/24 02/26/24 02/26/24 18:59 06:59 18:59 Intake Total 642.483 286.484 Balance 642.483 286.484 Intake: Intake, IV Titration 166.483 168.484 Amount Heparin Sod,Pork in 0.45% 166.483 168.484 NaCl 25,000 unit In 0.45 % NaCl 1 250ml.bag @ 10.5 UNITS/KG/HR 10.002 mls/ hr IV .Q24H [facility] Rx#: [id number] Oral 476 118 Other: Voiding Method Toilet Toilet Toilet # Voids 2 2 - Labs CBC & Chem 7: 02/25/24 07:18 02/25/24 07:18 Labs: Abnormal Lab Results - Last 24 Hours (Table) 02/25/24 02/25/24 02/26/24 Range/Units 16:57 20:34 01:32 APTT 56.4 H (22.0-30.0) sec POC Glucose (mg/dL) 185 H 128 H (70-110) mg/dL
--- NOTE | 2024-02-28 07:55 | P.DS ---
Providers Date of admission: 02/23/24 15:05 Attending physician: Vince Lees MD Consults: 02/23/24 15:05 Consult Physician Urgent Consulting Provider: [facility] Consult Reason/Comments: Chest pain Do you want consulting provider notified?: Yes Primary care physician: Doretha Rose Hospital Course: Final Diagnosis -Non-STEMI -Moderate to severe aortic stenosis -Congestive heart failure with preserved ejection fraction patient is euvolemic -Coronary artery disease with previous CABG and subsequent stenting, most recently of PDA to RCA, December 2023 -Hypertension -Hyperlipidemia -COPD without any acute exacerbation -Obesity -Sleep apnea uses CPAP machine -Gastroesophageal reflux disease for which patient is on Protonix -Elevated blood sugars will obtain a hemoglobin A1c 6.9 Discharge Disposition Patient is stable for discharge home. Has been stared on ranexa and will continue on discharge. Chest pain has resolved at this time. Continue dual antiplatelet therapy for the recent stenting and continue on GI prophylaxis. Patient to see his PCP Dr. Doretha Rose in 2 to 3 days. Follow up with his usual breakfast bar attendant Dr. Luis Alfredo Vuong in 1 week. Hospital Course Patient pleasant 83-year-old male with known history of coronary artery disease CABG and subsequent stenting of the PDA of the RCA, came in with complaints of chest pressure-like sensation which started last night nonexertional started at rest mild to moderate severity nonradiating associate with some nausea denies any vomiting took sublingual nitroglycerin with relief of his discomfort patient presently denies any chest discomfort at this time. Patient had a EKG which showed right bundle branch block without any acute ST-T wave changes patient troponins are slightly elevated to 0.035, 0.042, 0.049. Patient had a normal echocardiogram with moderate aortic stenosis and normal ejection fraction and normal 2022. Patient denies any fever chills cough chest x-ray did not show any pneumonia but read as mild pulmonary vascular congestion, patient's BNP is 523 patient takes torsemide at home. Admitting to the hospital with cardiology consultation was initially placed on IV heparin. He was also given pepcid in addition to the protonix as he is on dual antiplatelet therapy and this may be a component of acid reflux. 2D echo revealed ejection fraction 5055% with moderate aortic stenosis and moderate aortic regurgitation. Patient denies any further episodes of chest pain or pressure. He denies any shortness of breath. Patient has been up ambulating in the hallway without shortness of breath or mateo st pain. Vital signs are stable. He was started on ranexa by cardiology and will continue this on discharge. Patient is doing well his lungs have scattered wheezing which is his baseline. Renal function WNL. He will be discharged home. Please see medication reconciliation for a list of current medications. Thank you for allowing us to participate in the care of this patient. The impression and plan of care has been dictated by Karolina Joseph, Nurse Practitioner as directed. Dr. Pia MD I have performed a history and physical examination and medical decision making of this patient, discussed the same with the dictator, and agree with the dictators assessment and plan as written, documented as a scribe. Based on total visit time, I have performed more than 50% of this visit. Patient Condition at Discharge: Stable Plan - Discharge Summary Discharge Rx Participant: No New Discharge Prescriptions: New Ranolazine [Ranexa] 500 mg PO Q12HR #60 tab Continue Ezetimibe [Zetia] 10 mg PO DAILY clonazePAM [KlonoPIN] 0.5 mg PO DAILY PRN PRN Reason: Anxiety Nitroglycerin Sl Tabs [Nitrostat] 0.4 mg SL Q5M PRN PRN Reason: Chest Pain Clopidogrel [Plavix] 75 mg PO HS DULoxetine HCL [Cymbalta] 60 mg PO DAILY Fluticasone/Umeclidin/Vilanter [Trelegy Ellipta 100-62.5-25] 1 puff INHALATION RT-DAILY Albuterol Inhaler [Ventolin Hfa Inhaler] 2 puff INHALATION RT-QID PRN PRN Reason: Shortness Of Breath Ipratropium-Albuterol Nebulize [Duoneb 0.5 mg-3 mg/3 ml Soln] 3 ml INHALATION RT-QID PRN #20 each PRN Reason: Shortness Of Breath Aspirin 81 mg PO DAILY #30 tab Ipratropium-Albuterol Nebulize [Duoneb 0.5 mg-3 mg/3 ml Soln] 3 ml INHALATION RT-QID each Metoprolol Tartrate [Lopressor] 25 mg PO BID #60 tab lisinopriL [Zestril] 5 mg PO DAILY #30 tab polyethylene glycoL 3350 [Miralax] 17 gm PO DAILY Isosorbide Mononitrate ER [Imdur] 60 mg PO DAILY Baclofen 10 mg PO HS PRN PRN Reason: Muscle Pain Torsemide [Demadex] 10 mg PO DAILY Magnesium(Unknown Dose) 1 tab PO HS Atorvastatin [Lipitor] 40 mg PO DAILY #30 tab Pantoprazole [Protonix] 40 mg PO DAILY #30 tab Acetaminophen Tab [Tylenol] 500 mg PO Q6H PRN PRN Reason: Pain Or Fever > 100.5 Ibuprofen/Diphenhydramine HCl [Advil Pm Liqui-Gels] 2 cap PO HS predniSONE 5 mg PO DAILY Donepezil HCl [Aricept] 10 mg PO DAILY Discharge Medication List Ezetimibe [Zetia] 10 mg PO DAILY 02/13/16 [History] Nitroglycerin Sl Tabs [Nitrostat] 0.4 mg SL Q5M PRN 06/22/16 [History] clonazePAM [KlonoPIN] 0.5 mg PO DAILY PRN 06/22/16 [History] Clopidogrel [Plavix] 75 mg PO HS 10/20/19 [History] DULoxetine HCL [Cymbalta] 60 mg PO DAILY 07/19/21 [History] Fluticasone/Umeclidin/Vilanter [Trelegy Ellipta 100-62.5-25] 1 puff INHALATION RT-DAILY 03/06/22 [History] Albuterol Inhaler [Ventolin Hfa Inhaler] 2 puff INHALATION RT-QID PRN 02/23/23 [History] Ipratropium-Albuterol Nebulize [Duoneb 0.5 mg-3 mg/3 ml Soln] 3 ml INHALATION RT-QID PRN #20 each 02/25/23 [Rx] Aspirin 81 mg PO DAILY #30 tab 05/10/23 [Rx] Atorvastatin [Lipitor] 40 mg PO DAILY #30 tab 05/10/23 [Rx] Ipratropium-Albuterol Nebulize [Duoneb 0.5 mg-3 mg/3 ml Soln] 3 ml INHALATION RT-QID each 05/10/23 [Rx] Metoprolol Tartrate [Lopressor] 25 mg PO BID #60 tab 05/10/23 [Rx] lisinopriL [Zestril] 5 mg PO DAILY #30 tab 05/10/23 [Rx] Pantoprazole [Protonix] 40 mg PO DAILY #30 tab 05/12/23 [Rx] polyethylene glycoL 3350 [Miralax] 17 gm PO DAILY 08/06/23 [History] Acetaminophen Tab [Tylenol] 500 mg PO Q6H PRN 08/19/23 [History] Baclofen 10 mg PO HS PRN 12/10/23 [History] Ibuprofen/Diphenhydramine HCl [Advil Pm Liqui-Gels] 2 cap PO HS 12/10/23 [ History] Isosorbide Mononitrate ER [Imdur] 60 mg PO DAILY 12/10/23 [History] predniSONE 5 mg PO DAILY 12/10/23 [History] Donepezil HCl [Aricept] 10 mg PO DAILY 02/23/24 [History] Magnesium(Unknown Dose) 1 tab PO HS 02/23/24 [History] Torsemide [Demadex] 10 mg PO DAILY 02/23/24 [History] Ranolazine [Ranexa] 500 mg PO Q12HR #60 tab 02/26/24 [Rx] Follow up Appointment(s)/Referral(s): Doretha Rose MD [Primary Care Provider] - 1-2 days (Please call to schedule follow up) Luis Alfredo Vuong MD [REFERRING] - 1 Week (Please call to schedule follow up) Patient Instructions/Handouts: Chest Pain (GEN) Discharge Disposition: HOME SELF-CARE
== END 2024-02-26 13:38 | disposition home or self-care (01) | DRG 281 ==
LOC: EC 13:03 → 3SCARD 15:05
PROVIDERS: ADMIT Internal Medicine; ATTEND Internal Medicine
DX: I21.4 Non-ST elevation (NSTEMI) myocardial infarction (principal); I50.30 Unspecified diastolic (congestive) heart failure; I25.10 Atherosclerotic heart disease of native coronary artery without angina pectoris; Z95.1 Presence of aortocoronary bypass graft; I11.0 Hypertensive heart disease with heart failure; E78.5 Hyperlipidemia, unspecified; Z68.31 Body mass index [BMI] 31.0-31.9, adult; E66.9 Obesity, unspecified; J44.9 Chronic obstructive pulmonary disease, unspecified; K21.9 Gastro-esophageal reflux disease without esophagitis; G47.33 Obstructive sleep apnea (adult) (pediatric); Z87.19 Personal history of other diseases of the digestive system; Z98.42 Cataract extraction status, left eye; Z98.41 Cataract extraction status, right eye; I25.2 Old myocardial infarction; I45.10 Unspecified right bundle-branch block; Z79.82 Long term (current) use of aspirin; Z79.899 Other long term (current) drug therapy; Z82.49 Family history of ischemic heart disease and other diseases of the circulatory system; Z95.5 Presence of coronary angioplasty implant and graft; I08.3 Combined rheumatic disorders of mitral, aortic and tricuspid valves
CPT/HCPCS: 36415; 71046; 80048; 80053; 80061; 83036; 83735; 83880; 84484; 85025; 85610; 85730; 93005; 93306; 94640; 94760; 96365; 96366; 99285

== ENCOUNTER 2024-04-14 18:48 | Observation (INO) | payer MEDICARE ==
[2024-04-14 19:01] VITALS: TEMP 98.1
--- NOTE | 2024-04-14 19:13 | ED ---
General Adult HPI - General Chief complaint: Chest Pain Stated complaint: Chest pain Time Seen by Provider: 04/14/24 19:03 Source: patient, RN notes reviewed Mode of arrival: EMS Limitations: no limitations - History of Present Illness Initial comments: Patient is an 84-year-old male present to the emergency department with chest discomfort. Onset of symptoms was this morning. Discomfort feels like tightness. Discomfort is mild at this time. Patient does have dyspnea however this is chronic and unchanged. No associated nausea or diaphoresis. Patient has had similar symptoms previously and does have history of known cardiac disease - Related Data Home Medications Medication Instructions Recorded Confirmed Ezetimibe [Zetia] 10 mg PO DAILY 02/13/16 02/23/24 Nitroglycerin Sl Tabs [Nitrostat] 0.4 mg SL Q5M PRN 06/22/16 02/23/24 clonazePAM [KlonoPIN] 0.5 mg PO DAILY PRN 06/22/16 02/23/24 Clopidogrel [Plavix] 75 mg PO HS 10/20/19 02/23/24 DULoxetine HCL [Cymbalta] 60 mg PO DAILY 07/19/21 02/23/24 Fluticasone/Umeclidin/Vilanter 1 puff INHALATION RT-DAILY 03/06/22 02/23/24 [Trelegy Ellipta 100-62.5-25] Albuterol Inhaler [Ventolin Hfa 2 puff INHALATION RT-QID PRN 02/23/23 02/23/24 Inhaler] polyethylene glycoL 3350 [Miralax] 17 gm PO DAILY 08/06/23 02/23/24 Acetaminophen Tab [Tylenol] 500 mg PO Q6H PRN 08/19/23 02/23/24 Baclofen 10 mg PO HS PRN 12/10/23 02/23/24 Ibuprofen/Diphenhydramine HCl 2 cap PO HS 12/10/23 02/23/24 [Advil Pm Liqui-Gels] Isosorbide Mononitrate ER [Imdur] 60 mg PO DAILY 12/10/23 02/23/24 predniSONE 5 mg PO DAILY 12/10/23 02/23/24 Donepezil HCl [Aricept] 10 mg PO DAILY 02/23/24 02/23/24 Magnesium(Unknown Dose) 1 tab PO HS 02/23/24 02/23/24 Torsemide [Demadex] 10 mg PO DAILY 02/23/24 02/23/24 Previous Rx's Medication Instructions Recorded Ipratropium-Albuterol Nebulize 3 ml INHALATION RT-QID PRN #20 each 02/25/23 [Duoneb 0.5 mg-3 mg/3 ml Soln] Aspirin 81 mg PO DAILY #30 tab 05/10/23 Atorvastatin [Lipitor] 40 mg PO DAILY #30 tab 05/10/23 Ipratropium-Albuterol Nebulize 3 ml INHALATION RT-QID each 05/10/23 [Duoneb 0.5 mg-3 mg/3 ml Soln] Metoprolol Tartrate [Lopressor] 25 mg PO BID #60 tab 05/10/23 lisinopriL [Zestril] 5 mg PO DAILY #30 tab 05/10/23 Pantoprazole [Protonix] 40 mg PO DAILY #30 tab 05/12/23 Ranolazine [Ranexa] 500 mg PO Q12HR #60 tab 02/26/24 Allergies Allergy/AdvReac Type Severity Reaction Status Date / Time No Known Allergies Allergy Verified 04/14/24 19:01 Review of Systems ROS Statement: Those systems with pertinent positive or pertinent negative responses have been documented in the HPI. ROS Other: All systems not noted in ROS Statement are negative. Constitutional: Denies: fever Eyes: Denies: eye pain ENT: Denies: ear pain Respiratory: Reports: as per HPI Cardiovascular: Reports: as per HPI, chest pain Gastrointestinal: Denies: abdominal pain Musculoskeletal: Denies: back pain Past Medical History Past Medical History: Coronary Artery Disease (CAD), Heart Failure, COPD, Dementia, GERD/Reflux, Hyperlipidemia, Myocardial Infarction (CT), Sleep Apnea/CPAP/BIPAP Additional Past Medical History / Comment(s): COPD, obesity, coronary artery disease with previous bypass surgery, cataracts, hiatal hernia, obstructive sleep apnea with CPAP therapy. 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 Mother History Unknown: Yes Family Medical History: CVA/TIA Additional Family Medical History / Comment(s): at age 99 3/4 from a stoke General Exam Limitations: no limitations General appearance: alert, in no apparent distress Head exam: Present: normocephalic Eye exam: Present: normal appearance Neck exam: Present: normal inspection Respiratory exam: Present: wheezes Cardiovascular Exam: Present: regular rate, normal rhythm GI/Abdominal exam: Present: soft. Absent: tenderness Extremities exam: Present: normal inspection. Absent: pedal edema, calf tenderness Neurological exam: Present: alert Psychiatric exam: Present: normal affect, normal mood Skin exam: Present: normal color Course Vital Signs 04/14/24 04/14/24 18:51 19:50 Temperature 98.1 F Pulse Rate 75 68 Respiratory 18 19 Rate Blood Pressure 135/68 118/53 O2 Sat by Pulse 96 98 Oximetry EKG Findings - EKG Results: EKG: interpreted by ERMD (Left axis. Right bundle branch block.), sinus rhythm, normal ST/T Medical Decision Making - Medical Decision Making Repeat EKG interpreted by myself shows sinus rhythm at 71. DE 178. QRS 148. QT 444. Left axis. Right bundle branch block. Nonspecific T waves. Was pt. sent in by a medical professional or institution (, PA, RADIO ELECTRONICS TECHNICIAN, urgent care, hospital, or prison...) When possible be specific @ -No Did you speak to anyone other than the patient for history (EMS, parent, family, police, friend...)? What history was obtained from this source @ - arrives later and provides additional history that patient is scheduled for TAVR procedure next month Did you review nursing and triage notes (agree or disagree)? Why? @ -I reviewed and agree with nursing and triage notes Were old charts reviewed (outside hosp., previous admission, EMS record, old EKG, old radiological studies, urgent care reports/EKG's, prison records)? Report findings @ -No old charts were reviewed Differential Diagnosis (chest pain, altered mental status, abdominal pain women, abdominal pain men, vaginal bleeding, weakness, fever, dyspnea, syncope, headache, dizziness, GI bleed, back pain, seizure, CVA, palpatations, mental health, musculoskeletal)? @ -Differential Chest Pain: Stable Angina, Unstable Angina, STEMI, NSTEMI Aortic Dissection, Pneumothorax, Musculoskeletal, Esophageal Spasm GERD, Cholecystitis, Pancreatitis, Zoster, this is not meant to be an all-inclusive list. EKG interpreted by me (3pts min.). @ -As above X-rays interpreted by me (1pt min.). @ -Chest x-ray shows no acute process CT interpreted by me (1pt min.). @ -None done U/S interpreted by me (1pt. min.). @ -None done What testing was considered but not performed or refused? (CT, X-rays, U/S, labs)? Why? @ -CT scan of the chest was ordered and is pending What meds were considered but not given or refused? Why? @ -None Did you discuss the management of the patient with other professionals (professionals i.e. , PA, RADIO ELECTRONICS TECHNICIAN, lab, RT, psych nurse, social media executive, facialist, teacher, investigation officer, bottle caser)? Give summary @ -Case was discussed with practitioner Lolis Dorman who will admit covering Dr. Deng, who admits for Dr. Palacios Was smoking cessation discussed for >3mins.? @ -No Was critical care preformed (if so, how long)? @ -No Were there social determinants of health that impacted care today? How? (Homelessness, low income, unemployed, alcoholism, drug addiction, transportation, low edu. Level, literacy, decrease access to med. care, prison, rehab)? @ -No Was there de-escalation of care discussed even if they declined (Discuss DNR or withdrawal of care, Hospice)? DNR status @ -No What co-morbidities impacted this encounter? (DM, HTN, Smoking, COPD, CAD, Cancer, CVA, ARF, Chemo, Hep., AIDS, mental health diagnosis, sleep apnea, morbid obesity)? @ -History of cardiac disease Was patient admitted / discharged? Hospital course, mention meds given and route, prescriptions, significant lab abnormalities, going to OR and other pertinent info. @ -Patient presents with chest discomfort, resolved at this point. Patient and family are updated on results and plan. Patient will be admitted with cardiac consult. Admission orders written. CT scan of the chest was ordered and pending. Undiagnosed new problem with uncertain prognosis? @ -No Drug Therapy requiring intensive monitoring for toxicity (Heparin, Nitro, Insulin, Cardizem)? @ -No Were any procedures done? @ -No Diagnosis/symptom? @ -Chest pain Acute, or Chronic, or Acute on Chronic? @ -Acute Uncomplicated (without systemic symptoms) or Complicated (systemic symptoms)? @ -Default Side effects of treatment? @ -No Exacerbation, Progression, or Severe Exacerbation? @ -No Poses a threat to life or bodily function? How? (Chest pain, USA, CT, pneumonia, PE, COPD, DKA, ARF, appy, cholecystitis, CVA, Diverticulitis, Homicidal, Suicidal, threat to staff... and all critical care pts) @ -Threat to cardiac function - Lab Data Result diagrams: 04/14/24 19:25 04/14/24 19:25 Lab Results 04/14/24 04/14/24 04/14/24 Range/Units 19:25 19:25 19:25 WBC 8.4 (3.8-10.6) k/uL RBC 3.81 L (4.30-5.90) m/uL Hgb 11.9 L (13.0-17.5) gm/dL Hct 35.5 L (39.0-53.0) % MCV 93.1 (80.0-100.0) fL MCH 31.1 (25.0-35.0) pg MCHC 33.5 (31.0-37.0) g/dL RDW 14.3 (11.5-15.5) % Plt Count 119 L (150-450) k/uL MPV 10.0 Neutrophils % 76 % Lymphocytes % 11 % Monocytes % 9 % Eosinophils % 4 % Basophils % 1 % Neutrophils # 6.3 (1.3-7.7) k/uL Lymphocytes # 0.9 L (1.0-4.8) k/uL Monocytes # 0.7 (0-1.0) k/uL Eosinophils # 0.3 (0-0.7) k/uL Basophils # 0.0 (0-0.2) k/uL PT 10.2 (10.0-12.5) sec INR 0.9 (<1.2) APTT 19.2 L (22.0-30.0) sec D-Dimer 1.08 H (<0.60) mg/L FEU Sodium 136 L (137-145) mmol/L Potassium 4.7 (3.5-5.1) mmol/L Chloride 105 (98-107) mmol/L Carbon Dioxide 24 (22-30) mmol/L Anion Gap 7 mmol/L BUN 27 H (9-20) mg/dL Creatinine 1.20 (0.66-1.25) mg/dL Est GFR (CKD-EPI)AfAm 64 (>60 ml/min/1.73 sqM) Est GFR (CKD-EPI)NonAf 56 (>60 ml/min/1.73 sqM) Glucose 157 H (74-99) mg/dL Calcium 9.0 (8.4-10.2) mg/dL Magnesium 2.2 (1.6-2.3) mg/dL Total Bilirubin 0.6 (0.2-1.3) mg/dL AST 24 (17-59) U/L ALT 16 (4-49) U/L Alkaline Phosphatase 77 (38-126) U/L Troponin I (0.000-0.034) ng/mL Total Protein 6.4 (6.3-8.2) g/dL Albumin 4.0 (3.5-5.0) g/dL 04/14/24 Range/Units 19:25 WBC (3.8-10.6) k/uL RBC (4.30-5.90) m/uL Hgb (13.0-17.5) gm/dL Hct (39.0-53.0) % MCV (80.0-100.0) fL MCH (25.0-35.0) pg MCHC (31.0-37.0) g/dL RDW (11.5-15.5) % Plt Count (150-450) k/uL MPV Neutrophils % % Lymphocytes % % Monocytes % % Eosinophils % % Basophils % % Neutrophils # (1.3-7.7) k/uL Lymphocytes # (1.0-4.8) k/uL Monocytes # (0-1.0) k/uL Eosinophils # (0-0.7) k/uL Basophils # (0-0.2) k/uL PT (10.0-12.5) sec INR (<1.2) APTT (22.0-30.0) sec D-Dimer (<0.60) mg/L FEU Sodium (137-145) mmol/L Potassium (3.5-5.1) mmol/L Chloride (98-107) mmol/L Carbon Dioxide (22-30) mmol/L Anion Gap mmol/L BUN (9-20) mg/dL Creatinine (0.66-1.25) mg/dL Est GFR (CKD-EPI)AfAm (>60 ml/min/1.73 sqM) Est GFR (CKD-EPI)NonAf (>60 ml/min/1.73 sqM) Glucose (74-99) mg/dL Calcium (8.4-10.2) mg/dL Magnesium (1.6-2.3) mg/dL Total Bilirubin (0.2-1.3) mg/dL AST (17-59) U/L ALT (4-49) U/L Alkaline Phosphatase (38-126) U/L Troponin I 0.017 (0.000-0.034) ng/mL Total Protein (6.3-8.2) g/dL Albumin (3.5-5.0) g/dL Disposition Clinical Impression: Chest pain Disposition: ADMITTED IP TO THIS HOSP Is patient prescribed a controlled substance at d/c from ED?: No Referrals: Doretha Rose MD [Primary Care Provider] - 1-2 days Time of Disposition: 20:47
[2024-04-14] MEDS: ASPIRIN 81 MG PO STA (19:31)
[2024-04-14] MEDS: NITROGLYCERIN OINT 1 INCH/GM PACKET TOPICAL STA (19:32)
[2024-04-14 19:35] LABS: Basophils % (A) 1 %; Eosinophils # (A) 0.3 k/uL (0-0.7); Eosinophils % (A) 4 %; HCT 35.5 % (39.0-53.0); HGB 11.9 gm/dL (13.0-17.5); Lymphocytes # (A) 0.9 k/uL (1.0-4.8); Lymphocytes % (A) 11 %; MCH 31.1 pg (25.0-35.0); MCHC 33.5 g/dL (31.0-37.0); MCV 93.1 fL (80.0-100.0); Monocytes # (A) 0.7 k/uL (0-1.0); Monocytes % (A) 9 %; Neutrophils # (A) 6.3 k/uL (1.3-7.7); Neutrophils % (A) 76 %; Platelet Count 119 k/uL (150-450); RBC 3.81 m/uL (4.30-5.90); RDW 14.3 % (11.5-15.5); WBC 8.4 k/uL (3.8-10.6)
[2024-04-14 19:47] LABS: ALT 16 U/L (4-49); AST 24 U/L (17-59); African American GFR (CKD) 64 (>60 ml/min/1.73 sqM); Alkaline Phosphatase 77 U/L (38-126); Anion Gap 7 mmol/L; Blood Urea Nitrogen 27 mg/dL (9-20); Carbon Dioxide 24 mmol/L (22-30); Chloride 105 mmol/L (98-107); Glucose 157 mg/dL (74-99); Magnesium 2.2 mg/dL (1.6-2.3); Non-African American GFR(CKD) 56 (>60 ml/min/1.73 sqM); Potassium 4.7 mmol/L (3.5-5.1); Sodium 136 mmol/L (137-145); Total Bilirubin 0.6 mg/dL (0.2-1.3); Total Protein 6.4 g/dL (6.3-8.2)
--- NOTE | 2024-04-14 19:57 | XR ---
EXAMINATION TYPE: XR chest 2V DATE OF EXAM: 04/14/2024 7:44 PM CLINICAL INDICATION:Male, 84 years old with history of Chest Pain; [facility] COMPARISON: Chest radiographs from 02/23/2024. TECHNIQUE: XR chest 2V Frontal and lateral views of the chest. FINDINGS: Study quality is limited by thick soft tissues. Lungs/Pleura: There is concern for retrocardiac airspace disease. No pleural effusion. No pneumotho rax. Pulmonary vascularity: Unremarkable. Heart/mediastinum: The heart is mildly enlarged. Musculoskeletal: No acute osseous pathology. Other findings: None Lines/Tubes: IMPRESSION: The left hemidiaphragm does not have a smooth appearance suggesting retrocardiac airspace disease.
[2024-04-14 20:00] LABS: INR 0.9 (<1.2); Prothrombin Time 10.2 sec (10.0-12.5)
[2024-04-14 20:11] LABS: Partial Thromboplastin Time 19.2 sec (22.0-30.0)
[2024-04-14] MEDS: IPRATROPIUM-ALBUTEROL 3 ML NEB INHALATION STA (20:47)
[2024-04-14] MEDS ORDERED: NITROGLYCERIN SL TABS 0.4 MG TAB SUBLINGUAL PRN (20:47)
--- NOTE | 2024-04-14 21:07 | CT ---
EXAMINATION TYPE: CT angio chest CT DLP: 566.9 mGycm, Automated exposure control for dose reduction was used. DATE OF EXAM: 04/14/2024 8:42 PM COMPARISON: Chest radiograph from same day. Multiple CTs of the chest with most recent on . CLINICAL INDICATION:Male, 84 years old with history of cp; CHEST PAIN/ POSITIVE D DIMER TECHNIQUE/CONTRAST: CTA scan of the thorax is performed with IV Contrast, patient injected with 100 ml mL of Isovue 370, MIP images are created and reviewed these are created on a separate workstation.. FINDINGS: Pulmonary Artery: There is no evidence for a filling defect within the pulmonary vasculature to sugge st acute pulmonary embolism. The pulmonary artery is of normal size. Lungs/Pleura: No evidence of focal consolidation, pleural effusion or pneumothorax. Airway: Large airways are patent. Heart: Heart is within normal limits for size. There is moderately pronounced CAD. Vasculature: No evidence of aortic aneurysm. Mediastinum: No gross evidence of adenopathy. Musculoskeletal: No acute osseous abnormalities Soft Tissues: Unremarkable. Lower neck: No significant findings. Upper Abdomen: No significant findings. IMPRESSION: 1. No evidence of pulmonary embolism. 2. CAD
[2024-04-14] MEDS: NITROGLYCERIN OINT 1 INCH/GM PACKET TOPICAL SCH (23:42)
[2024-04-15] MEDS: ACETAMINOPHEN TAB 325 MG TAB PO PRN (02:28)
[2024-04-15] MEDS: ASPIRIN 325 MG TAB PO SCH (09:08)
[2024-04-15 09:36] LABS: Chol/HDL Ratio 2.63 Ratio; LDL Cholesterol,Calculated 40.7 mg/dL (0.0-131.0)
[2024-04-15] MEDS ORDERED: polyethylene glycoL 3350 17 GM POWD.PACK PO PRN (11:09)
[2024-04-15] MEDS: DULoxetine HCL 60 MG CAPSULE.DR PO SCH (12:17)
[2024-04-15] MEDS: PANTOPRAZOLE 40 MG TABLET PO SCH (12:17)
[2024-04-15] MEDS: CLOPIDOGREL 75 MG TAB PO SCH (12:17)
[2024-04-15] MEDS: predniSONE 5 MG TAB PO SCH (12:17)
[2024-04-15] MEDS: METOPROLOL TARTRATE 25 MG TAB PO SCH (12:17)
[2024-04-15] MEDS: ATORVASTATIN 40 MG TAB PO SCH (12:17)
[2024-04-15] MEDS: EZETIMIBE 10 MG TAB PO SCH (12:17)
[2024-04-15] MEDS: ALBUTEROL NEBULIZED 2.5 MG/3 ML INHALATION SCH (12:37)
[2024-04-15 13:20] VITALS: RESP 18
[2024-04-15] MEDS: FUROSEMIDE 10 MG/ML 4 ML VIAL IV STA (14:09)
[2024-04-15 15:34] VITALS: PULSE 78
[2024-04-15 16:47] VITALS: BP 133/61
--- NOTE | 2024-04-15 20:30 | P.CRDCN ---
History of Present Illness Consult date: 04/15/24 History of present illness: HISTORY OF PRESENTING ILLNESS Patient is a [id number]- male who is known to Dr. Vuong from [facility]. He has a past medical history of CAD s/p CABG and subsequent stenting. Hypertension, dyslipidemia, COPD and moderate to severe aortic stenosis. He has been undergoing TAVR evaluation and is planned to undergo TAVR next month with Dr. Newby. In April 2023 patient underwent heart cath. Received PCI to vein graft to OM. In July 2023 he was admitted with NSTEMI underwent heart catheterization and was treated medically. In December 2023 he underwent cardiac catheterization again this time he received PCI to his radial artery graft to PDA. This time he presented to the hospital because of symptoms of substernal chest pressure that started yesterday. At the time of evaluating the patient patient reported that his chest pain and shortness of breath is resolved and he feels back to his baseline. REVIEW OF SYSTEMS 14 point review of system is negative except what is mentioned above in HPI. PHYSICAL EXAMINATION Vital signs reviewed. Head: Normocephalic. Eyes: Sclerae nonicteric. Neck: dealyed carotid upstroke, no jugular venous distention. Lungs: Clear to auscultation. Heart: Regular rate and rhythm, S1-S2 present, 4/6 systolic murmur in aortic area radaiting to carotids, Abdomen: Soft nontender, positive bowel sounds. Extremities:1+ edema b/l ankles, intact distal pulses. Neuro: Alert, oritented, no focal deficits. Detailed neuro exam was not performed. ASSESSMENT Stable angina, ACC class III CAD status post CABG with subsequent PCI July 2023 to vein graft to OM, December 2023 radial graft to PDA Mild elevated troponin, likely type II NSTEMI in setting of demand supply mismat ch from severe aortic stenosis and severe CAD Chronic HFpEF, currently euvolemic Hypertension Dyslipidemia COPD, with chronic hypoxia Obesity PLAN Patient has mild elevation of troponin with a flat pattern which can be seen in situations of severe aortic stenosis with severe coronary artery disease which this patient has. Patient is on optimal antianginal and antiplatelet therapy. At this time patient is not reporting any chest pain chest pressure. He does not have any concerns of new arrhythmias. He does not have any signs of pulmonary congestion. I will give him 1 dose of IV Lasix 40 mg for mild increased lower extremity I will not discharge him on further diuretic because of his severe aortic stenosis. Will continue his current medical regimen without any changes. Recommend fol low-up with Dr. Vuong in next few days and undergo TAVR procedure. Niall Laird MD, [facility], [facility] Thank you for allowing [facility] to participate in this patient's care. Feel free to reach out in case of any followup questions. Past Medical History Past Medical History: Coronary Artery Disease (CAD), Heart Failure, COPD, Dementia, GERD/Reflux, Hyperlipidemia, Myocardial Infarction ([place]), Sleep Apnea/CPAP/BIPAP Additional Past Medical History / Comment(s): COPD, obesity, coronary artery disease with previous bypass surgery, cataracts, hiatal hernia, obstructive sleep apnea with CPAP therapy. 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 Mother History Unknown: Yes Family Medical History: CVA/TIA Additional Family Medical History / Comment(s): at age 99 3/4 from a stoke Medications and Allergies Home Medications Medication Instructions Recorded Confirmed Type Ezetimibe [Zetia] 10 mg PO DAILY 02/13/16 04/14/24 History Nitroglycerin Sl Tabs [Nitrostat] 0.4 mg SL Q5M PRN 06/22/16 04/14/24 History Clopidogrel [Plavix] 75 mg PO DAILY 10/20/19 04/14/24 History DULoxetine HCL [Cymbalta] 60 mg PO DAILY 07/19/21 04/14/24 History Fluticasone/Umeclidin/Vilanter 1 puff INHALATION RT-DAILY 03/06/22 04/14/24 History [Walker Ellipta 100-62.5-25] Albuterol Inhaler [Ventolin Hfa 2 puff INHALATION RT-QID PRN 02/23/23 04/14/24 History Inhaler] Atorvastatin [Lipitor] 40 mg PO DAILY #30 tab 05/10/23 04/14/24 Rx Metoprolol Tartrate [Lopressor] 25 mg PO BID #60 tab 05/10/23 04/14/24 Rx lisinopriL [Zestril] 5 mg PO DAILY #30 tab 05/10/23 04/14/24 Rx Pantoprazole [Protonix] 40 mg PO DAILY #30 tab 05/12/23 04/14/24 Rx polyethylene glycoL 3350 [Miralax] 17 gm PO DAILY 08/06/23 04/14/24 History Isosorbide Mononitrate ER [Imdur] 60 mg PO DAILY 12/10/23 04/14/24 History predniSONE 5 mg PO DAILY 12/10/23 04/14/24 History Donepezil HCl [Aricept] 10 mg PO DAILY 02/23/24 04/14/24 History Torsemide [Demadex] 10 mg PO DAILY 02/23/24 04/14/24 History Ranolazine [Ranexa] 500 mg PO Q12HR #60 tab 02/26/24 04/14/24 Rx Albuterol Nebulized [Ventolin 2.5 mg INHALATION RT-QID 04/14/24 04/14/24 History Nebulized] Ibuprofen/Diphenhydramine HCl 2 cap PO HS 04/14/24 04/14/24 History [Advil Pm Liqui-Gels] Magnesium 250 mg PO DAILY 04/14/24 04/14/24 History diphenhydrAMINE HCL [Benadryl] 50 mg PO HS 04/14/24 04/14/24 History Allergies Allergy/AdvReac Type Severity Reaction Status Date / Time No Known Allergies Allergy Verified 04/14/24 20:59 Physical Exam Vitals: Vital Signs Temp Pulse Resp BP Pulse Ox 04/15/24 16:43 98.1 F 78 18 133/61 95 04/15/24 15:34 78 04/15/24 15:25 81 04/15/24 13:19 82 18 128/78 95 04/15/24 12:48 78 04/15/24 12:47 95 04/15/24 12:37 71 04/15/24 10:11 78 20 133/61 97 04/15/24 06:07 72 18 114/58 98 04/15/24 02:00 76 19 115/56 92 L 04/14/24 23:40 72 18 115/56 93 L 04/14/24 21:00 70 04/14/24 20:47 68 Results 04/14/24 19:25 04/14/24 19:25 Cardiac Enzymes 04/14/24 04/15/24 Range/Units 23:38 01:33 Troponin I 0.064 H* 0.065 H* (0.000-0.034) ng/mL Lipids 04/15/24 Range/Units 01:33 Triglycerides 175.00 H (0.00-149.00) mg/dL Cholesterol 122.00 (0.00-200.00) mg/dL HDL Cholesterol 46.30 (40.00-60.00) mg/dL Cholesterol/HDL Ratio 2.63 Ratio 04/14/24 19:25 04/14/24 19:25
[2024-04-15] MEDS ORDERED: RANOLAZINE 500 MG TAB.ER.12H PO SCH (21:00)
[2024-04-16] MEDS ORDERED: SYMBICORT 80-4.5 MCG INHALER INHALATION SCH (08:00)
[2024-04-16] MEDS ORDERED: IPRATROPIUM 0.5 MG/2.5 ML NEBU INHALATION SCH (08:00)
[2024-04-16] MEDS ORDERED: ISOSORBIDE MONONITRATE ER 60 MG TAB.ER.24H PO SCH (09:00)
[2024-04-16] MEDS ORDERED: lisinopriL 5 MG TAB PO SCH (09:00)
[2024-04-16] MEDS ORDERED: TORSEMIDE 20 MG TAB PO SCH (09:00)
== END 2024-04-15 16:50 | disposition home or self-care (01) ==
LOC: EC 18:48 → 6NMEDSUR 20:48 → 3SCARD 04-15 03:10
PROVIDERS: ADMIT Internal Medicine; ATTEND Internal Medicine
DX: I25.119 Atherosclerotic heart disease of native coronary artery with unspecified angina pectoris (principal); I11.0 Hypertensive heart disease with heart failure; I50.32 Chronic diastolic (congestive) heart failure; J44.9 Chronic obstructive pulmonary disease, unspecified; F03.90 Unspecified dementia, unspecified severity, without behavioral disturbance, psychotic disturbance, mood disturbance, and anxiety; K21.9 Gastro-esophageal reflux disease without esophagitis; E78.5 Hyperlipidemia, unspecified; G47.33 Obstructive sleep apnea (adult) (pediatric); F32.A Depression, unspecified; F41.9 Anxiety disorder, unspecified; R79.89 Other specified abnormal findings of blood chemistry; I25.2 Old myocardial infarction; E66.9 Obesity, unspecified; Z68.31 Body mass index [BMI] 31.0-31.9, adult; Z87.891 Personal history of nicotine dependence; Z95.5 Presence of coronary angioplasty implant and graft; Z79.52 Long term (current) use of systemic steroids; Z79.51 Long term (current) use of inhaled steroids; Z79.899 Other long term (current) drug therapy; Z82.49 Family history of ischemic heart disease and other diseases of the circulatory system
CPT/HCPCS: 96374; 99285; 36415; 94640 ×3; 94760; 93005 ×2; 85379; 80061; 80053; 83735; 84484 ×2; 85025; 85610; 85730; 71046; 71275; G0378 ×3; J1940; J7512; Q9967

== ENCOUNTER 2024-04-18 00:20 | Observation (INO) | payer MEDICARE ==
[2024-04-18] MEDS: SODIUM CHLORIDE 0.9% 500 ML 500 ML IV STA (00:40)
[2024-04-18 00:51] LABS: Basophils % (A) 0 %; Eosinophils # (A) 0.2 k/uL (0-0.7); Eosinophils % (A) 3 %; HCT 34.3 % (39.0-53.0); HGB 11.3 gm/dL (13.0-17.5); Lymphocytes # (A) 1.3 k/uL (1.0-4.8); Lymphocytes % (A) 16 %; MCH 30.6 pg (25.0-35.0); MCV 92.8 fL (80.0-100.0); Monocytes # (A) 0.7 k/uL (0-1.0); Monocytes % (A) 9 %; Neutrophils # (A) 5.5 k/uL (1.3-7.7); Neutrophils % (A) 69 %; Platelet Count 114 k/uL (150-450); RDW 14.4 % (11.5-15.5); WBC 7.9 k/uL (3.8-10.6)
--- NOTE | 2024-04-18 00:51 | ED ---
General Adult HPI - General Chief complaint: Fall Stated complaint: Fall Time Seen by Provider: 04/18/24 00:21 Source: patient, EMS, RN notes reviewed Mode of arrival: EMS Limitations: no limitations - History of Present Illness Initial comments: 84-year-old male presents emerged part via EMS chief complaint of weakness. Patient states he recently got out of the hospital for chest pain. He states he has no current complaints of chest pain. Patient states that he had an episode where his legs just gave out tonight. He states he went on the ground but denies any head injury no injuries from the fall itself. Patient denies any shortness of breath no neck pain, back pain denies any urinary symptoms no change in bowel habits. - Related Data Home Medications Medication Instructions Recorded Confirmed Ezetimibe [Zetia] 10 mg PO DAILY 02/13/16 04/14/24 Nitroglycerin Sl Tabs [Nitrostat] 0.4 mg SL Q5M PRN 06/22/16 04/14/24 Clopidogrel [Plavix] 75 mg PO DAILY 10/20/19 04/14/24 DULoxetine HCL [Cymbalta] 60 mg PO DAILY 07/19/21 04/14/24 Fluticasone/Umeclidin/Vilanter 1 puff INHALATION RT-DAILY 03/06/22 04/14/24 [Trelegy Ellipta 100-62.5-25] Albuterol Inhaler [Ventolin Hfa 2 puff INHALATION RT-QID PRN 02/23/23 04/14/24 Inhaler] polyethylene glycoL 3350 [Miralax] 17 gm PO DAILY 08/06/23 04/14/24 Isosorbide Mononitrate ER [Imdur] 60 mg PO DAILY 12/10/23 04/14/24 predniSONE 5 mg PO DAILY 12/10/23 04/14/24 Donepezil HCl [Aricept] 10 mg PO DAILY 02/23/24 04/14/24 Torsemide [Demadex] 10 mg PO DAILY 02/23/24 04/14/24 Albuterol Nebulized [Ventolin 2.5 mg INHALATION RT-QID 04/14/24 04/14/24 Nebulized] Ibuprofen/Diphenhydramine HCl 2 cap PO HS 04/14/24 04/14/24 [Advil Pm Liqui-Gels] Magnesium 250 mg PO DAILY 04/14/24 04/14/24 diphenhydrAMINE HCL [Benadryl] 50 mg PO HS 04/14/24 04/14/24 Previous Rx's Medication Instructions Recorded Atorvastatin [Lipitor] 40 mg PO DAILY #30 tab 05/10/23 Metoprolol Tartrate [Lopressor] 25 mg PO BID #60 tab 05/10/23 lisinopriL [Zestril] 5 mg PO DAILY #30 tab 05/10/23 Pantoprazole [Protonix] 40 mg PO DAILY #30 tab 05/12/23 Ranolazine [Ranexa] 500 mg PO Q12HR #60 tab 02/26/24 Allergies Allergy/AdvReac Type Severity Reaction Status Date / Time No Known Allergies Allergy Verified 04/18/24 00:25 Review of Systems ROS Statement: Those systems with pertinent positive or pertinent negative responses have been documented in the HPI. ROS Other: All systems not noted in ROS Statement are negative. Past Medical History Past Medical History: Coronary Artery Disease (CAD), Heart Failure, COPD, Dementia, GERD/Reflux, Hyperlipidemia, Myocardial Infarction ([place]), Sleep Apnea/CPAP/BIPAP Additional Past Medical History / Comment(s): COPD, obesity, coronary artery disease with previous bypass surgery, cataracts, hiatal hernia, obstructive sleep apnea with CPAP therapy. 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 Mother History Unknown: Yes Family Medical History: CVA/TIA Additional Family Medical History / Comment(s): at age 99 3/4 from a stoke General Exam General appearance: alert, in no apparent distress Head exam: Present: atraumatic, normocephalic, normal inspection Eye exam: Present: normal appearance, PERRL, EOMI. Absent: scleral icterus, conjunctival injection, periorbital swelling ENT exam: Present: normal exam, normal oropharynx, mucous membranes moist Neck exam: Present: normal inspection. Absent: tenderness, meningismus, lymphadenopathy Respiratory exam: Present: normal lung sounds bilaterally. Absent: respiratory distress, wheezes, rales, rhonchi, stridor Cardiovascular Exam: Present: regular rate, normal rhythm, normal heart sounds. Absent: systolic murmur, diastolic murmur, rubs, gallop, clicks GI/Abdominal exam: Present: soft, normal bowel sounds. Absent: distended, tenderness, guarding, rebound, rigid Extremities exam: Present: normal inspection, full ROM, normal capillary refill. Absent: tenderness, pedal edema, joint swelling, calf tenderness Back exam: Absent: CVA tenderness (R), CVA tenderness (L) Neurological exam: Present: alert, oriented X3, CN II-XII intact, reflexes normal. Absent: motor sensory deficit Skin exam: Present: warm, dry, intact, normal color. Absent: rash Course Vital Signs 04/18/24 00:22 Temperature 97.7 F Pulse Rate 72 Respiratory 17 Rate Blood Pressure 101/50 O2 Sat by Pulse 97 Oximetry EKG Findings - EKG Comments: EKG Findings:: EKG performed at 00: 28 sinus rhythm with a rate of 72 AK 198 QRS 153 QT/QTc 460/484 EKG similar to 04/15/2024 - EKG Results: EKG: interpreted by ERMD Medical Decision Making - Medical Decision Making Was pt. sent in by a medical professional or institution (, PA, ASSISTANT DIRECTOR OF PLANT OPERATIONS, urgent care, hospital, or halfway...) When possible be specific @ -No Did you speak to anyone other than the patient for history (EMS, parent, family, police, friend...)? What history was obtained from this source @ -No Did you review nursing and triage notes (agree or disagree)? Why? @ -I reviewed and agree with nursing and triage notes Were old charts reviewed (outside hosp., previous admission, EMS record, old EKG, old radiological studies, urgent care reports/EKG's, halfway records)? Report findings @ -No old charts were reviewed Differential Diagnosis (chest pain, altered mental status, abdominal pain women, abdominal pain men, vaginal bleeding, weakness, fever, dyspnea, syncope, headache, dizziness, GI bleed, back pain, seizure, CVA, palpatations, mental health, musculoskeletal)? @ -Differential Weakness: Hypoglycemia, shock, sepsis, hyponatremia, anemia, infection, IL, ETOH, adverse medicine reaction, overdose, stroke, this is not meant to be an all-inclusive list. EKG interpreted by me (3pts min.). @ -As above X-rays interpreted by me (1pt min.). @ -None done CT interpreted by me (1pt min.). @ -None done U/S interpreted by me (1pt. min.). @ -None done What testing was considered but not performed or refused? (CT, X-rays, U/S, labs)? Why? @ -None What meds were considered but not given or refused? Why? @ -None Did you discuss the management of the patient with other professionals (professionals i.e. , PA, ASSISTANT DIRECTOR OF PLANT OPERATIONS, lab, RT, psych nurse, social insurance analyst, risk control representative, teacher, medical corps officer, case preparer and liner)? Give summary @ -EMH for admission Was smoking cessation discussed for >3mins.? @ -No Was critical care preformed (if so, how long)? @ -No Were there social determinants of health that impacted care today? How? (Homel essness, low income, unemployed, alcoholism, drug addiction, transportation, low edu. Level, literacy, decrease access to med. care, nursing home, rehab)? @ -No Was there de-escalation of care discussed even if they declined (Discuss DNR or withdrawal of care, Hospice)? DNR status @ -No What co-morbidities impacted this encounter? (DM, HTN, Smoking, COPD, CAD, Cancer, CVA, ARF, Chemo, Hep., AIDS, mental health diagnosis, sleep apnea, morbid obesity)? @ -None Was patient admitted / discharged? Hospital course, mention meds given and route, prescriptions, significant lab abnormalities, going to OR and other pertinent info. @ -Admitted patient found to be acutely dehydrated. Patient is having continua tion of weakness difficulty ambulating. Patient will be admitted patient had no head injury no loss conscious. Patient admitted with physical therapy, Occupational Therapy Undiagnosed new problem with uncertain prognosis? @ -No Drug Therapy requiring intensive monitoring for toxicity (Heparin, Nitro, Insulin, Cardizem)? @ -No Were any procedures done? @ -No Diagnosis/symptom? @ -Dehydration, weakness, difficulty ambulating Acute, or Chronic, or Acute on Chronic? @ -Acute Uncomplicated (without systemic symptoms) or Complicated (systemic symptoms)? @ -Uncomplicated Side effects of treatment? @ -No Exacerbation, Progression, or Severe Exacerbation? @ -No Poses a threat to life or bodily function? How? (Chest pain, [place], [place], pneumonia, PE, COPD, DKA, ARF, appy, cholecystitis, CVA, Diverticulitis, Homicidal, Suicidal, threat to staff... and all critical care pts) @ -No - Lab Data Result diagrams: 04/18/24 00:36 04/18/24 00:36 Lab Results 04/18/24 04/18/24 04/18/24 Range/Units 00:36 00:36 00:36 WBC 7.9 (3.8-10.6) k/uL RBC 3.70 L (4.30-5.90) m/uL Hgb 11.3 L (13.0-17.5) gm/dL Hct 34.3 L (39.0-53.0) % MCV 92.8 (80.0-100.0) fL MCH 30.6 (25.0-35.0) pg MCHC 33.0 (31.0-37.0) g/dL RDW 14.4 (11.5-15.5) % Plt Count 114 L (150-450) k/uL MPV 13.0 Neutrophils % 69 % Lymphocytes % 16 % Monocytes % 9 % Eosinophils % 3 % Basophils % 0 % Neutrophils # 5.5 (1.3-7.7) k/uL Lymphocytes # 1.3 (1.0-4.8) k/uL Monocytes # 0.7 (0-1.0) k/uL Eosinophils # 0.2 (0-0.7) k/uL Basophils # 0.0 (0-0.2) k/uL PT 10.4 (10.0-12.5) sec INR 0.9 (<1.2) APTT 23.6 (22.0-30.0) sec Sodium 131 L (137-145) mmol/L Potassium 4.5 (3.5-5.1) mmol/L Chloride 103 (98-107) mmol/L Carbon Dioxide 21 L (22-30) mmol/L Anion Gap 7 mmol/L BUN 33 H (9-20) mg/dL Creatinine 1.67 H (0.66-1.25) mg/dL Est GFR (CKD-EPI)AfAm 43 (>60 ml/min/1.73 sqM) Est GFR (CKD-EPI)NonAf 37 (>60 ml/min/1.73 sqM) Glucose 151 H (74-99) mg/dL Calcium 8.5 (8.4-10.2) mg/dL Magnesium 2.2 (1.6-2.3) mg/dL Total Bilirubin 0.6 (0.2-1.3) mg/dL AST 25 (17-59) U/L ALT 17 (4-49) U/L Alkaline Phosphatase 105 (38-126) U/L Troponin I (0.000-0.034) ng/mL NT-Pro-B Natriuret Pep 216 pg/mL Total Protein 5.9 L (6.3-8.2) g/dL Albumin 3.6 (3.5-5.0) g/dL Urine Color Urine Appearance (Clear) Urine pH (5.0-8.0) Ur Specific [place] (1.001-1.035) Urine Protein (Negative) Urine Glucose (UA) (Negative) Urine Ketones (Negative) Urine Blood (Negative) Urine Nitrite (Negative) Urine Bilirubin (Negative) Urine Urobilinogen (<2.0) mg/dL Ur Leukocyte Esterase (Negative) 04/18/24 04/18/24 Range/Units 00:36 03:04 WBC (3.8-10.6) k/uL RBC (4.30-5.90) m/uL Hgb (13.0-17.5) gm/dL Hct (39.0-53.0) % MCV (80.0-100.0) fL MCH (25.0-35.0) pg MCHC (31.0-37.0) g/dL RDW (11.5-15.5) % Plt Count (150-450) k/uL MPV Neutrophils % % Lymphocytes % % Monocytes % % Eosinophils % % Basophils % % Neutrophils # (1.3-7.7) k/uL Lymphocytes # (1.0-4.8) k/uL Monocytes # (0-1.0) k/uL Eosinophils # (0-0.7) k/uL Basophils # (0-0.2) k/uL PT (10.0-12.5) sec INR (<1.2) APTT (22.0-30.0) sec Sodium (137-145) mmol/L Potassium (3.5-5.1) mmol/L Chloride (98-107) mmol/L Carbon Dioxide (22-30) mmol/L Anion Gap mmol/L BUN (9-20) mg/dL Creatinine (0.66-1.25) mg/dL Est GFR (CKD-EPI)AfAm (>60 ml/min/1.73 sqM) Est GFR (CKD-EPI)NonAf (>60 ml/min/1.73 sqM) Glucose (74-99) mg/dL Calcium (8.4-10.2) mg/dL Magnesium (1.6-2.3) mg/dL Total Bilirubin (0.2-1.3) mg/dL AST (17-59) U/L ALT (4-49) U/L Alkaline Phosphatase (38-126) U/L Troponin I 0.016 (0.000-0.034) ng/mL NT-Pro-B Natriuret Pep pg/mL Total Protein (6.3-8.2) g/dL Albumin (3.5-5.0) g/dL Urine Color Yellow Urine Appearance Clear (Clear) Urine pH 5.0 (5.0-8.0) Ur Specific [place] 1.014 (1.001-1.035) Urine Protein Negative (Negative) Urine Glucose (UA) Negative (Negative) Urine Ketones Negative (Negative) Urine Blood Negative (Negative) Urine Nitrite Negative (Negative) Urine Bilirubin Negative (Negative) Urine Urobilinogen <2.0 (<2.0) mg/dL Ur Leukocyte Esterase Negative (Negative) Disposition Clinical Impression: Fall, Weakness, Dehydration, Difficulty in walking Disposition: ADMITTED IP TO THIS [facility] Condition: Fair Referrals: Doretha Rose MD [Primary Care Provider] - 1-2 days Time of Disposition: 03:55
[2024-04-18 01:02] LABS: INR 0.9 (<1.2); Partial Thromboplastin Time 23.6 sec (22.0-30.0); Prothrombin Time 10.4 sec (10.0-12.5)
[2024-04-18 01:13] LABS: ALT 17 U/L (4-49); AST 25 U/L (17-59); African American GFR (CKD) 43 (>60 ml/min/1.73 sqM); Albumin 3.6 g/dL (3.5-5.0); Alkaline Phosphatase 105 U/L (38-126); Anion Gap 7 mmol/L; Blood Urea Nitrogen 33 mg/dL (9-20); Calcium 8.5 mg/dL (8.4-10.2); Carbon Dioxide 21 mmol/L (22-30); Chloride 103 mmol/L (98-107); Glucose 151 mg/dL (74-99); Magnesium 2.2 mg/dL (1.6-2.3); Non-African American GFR(CKD) 37 (>60 ml/min/1.73 sqM); Potassium 4.5 mmol/L (3.5-5.1); Sodium 131 mmol/L (137-145); Total Bilirubin 0.6 mg/dL (0.2-1.3); Total Protein 5.9 g/dL (6.3-8.2)
[2024-04-18 01:21] LABS: NT-Pro-B-Type Natriuretic Pept 216 pg/mL
[2024-04-18 03:14] LABS: Appearance,Urine Clear (Clear); Bilirubin,Urine Negative (Negative); Blood,Urine Negative (Negative); Color,Urine Yellow; Glucose,Urine (UA) Negative (Negative); Ketones,Urine Negative (Negative); Leukocyte Esterase,Urine Negative (Negative); Nitrite,Urine Negative (Negative); Protein,Urine Negative (Negative); Specific Gravity,Urine 1.014 (1.001-1.035); Urobilinogen,Urine <2.0 mg/dL (<2.0)
[2024-04-18] MEDS ORDERED: NALOXONE 0.4 MG/ML 1 ML VIAL IV PRN (03:55)
[2024-04-18] MEDS: SODIUM CHLORIDE 0.9% 500 ML 500 ML IV ONE (05:30)
[2024-04-18] MEDS ORDERED: NITROGLYCERIN SL TABS 0.4 MG TAB SUBLINGUAL PRN (11:58)
[2024-04-18] MEDS ORDERED: diphenhydrAMINE 25 MG CAP PO PRN (11:58)
[2024-04-18] MEDS ORDERED: ALBUTEROL NEBULIZED 2.5 MG/3 ML INHALATION PRN (11:58)
[2024-04-18] MEDS: ALBUTEROL NEBULIZED 2.5 MG/3 ML INHALATION SCH (12:10)
[2024-04-18] MEDS: PANTOPRAZOLE 40 MG TABLET PO SCH (12:24)
[2024-04-18] MEDS: DULoxetine HCL 60 MG CAPSULE.DR PO SCH (12:24)
[2024-04-18] MEDS: ISOSORBIDE MONONITRATE ER 60 MG TAB.ER.24H PO SCH (12:24)
[2024-04-18] MEDS: ATORVASTATIN 40 MG TAB PO SCH (12:24)
[2024-04-18] MEDS: CLOPIDOGREL 75 MG TAB PO SCH (12:24)
--- NOTE | 2024-04-18 12:29 | XR ---
EXAMINATION TYPE: XR chest 2V DATE OF EXAM: 04/18/2024 COMPARISON: 04/14/2024 HISTORY: 84 year-old male shortness of breath TECHNIQUE: PA and lateral views FINDINGS: Median sternotomy wires are present. Post-CABG clips. Heart borderline in size. Diffuse interstitial densities. No consolidation or pleural effusion. IMPRESSION: Diffuse interstitial densities persist. Consider atypical pneumonias, interstitial pneumonitis, or mi ld pulmonary vascular congestion. Underlying fibrosis is also a consideration. Correlate for any know n underlying history. No acute change seen.
--- NOTE | 2024-04-18 12:45 | P.HPIM ---
History of Present Illness Patient pleasant 84-year-old male came with complaints of generalized weakness and falls patient was having neuropathy symptoms and falls secondary to possibly from neuropathy. Patient has multiple other medical problems was hospitalized in the past. Patient does have history of congestive heart failure uses torsemide at home. Patient had preserved ejection fraction. Patient is presently slightly hypokalemic with elevated creatinine of around 1.67 and hyponatremic with serum sodium of 131 his baseline creatinine is within normal limits REVIEW OF SYSTEMS: All other systems are negative except those mentioned in the HPI PHYSICAL EXAMINATION: GENERAL: The patient is alert and oriented x3, not in any acute distress. Well developed, well nourished. HEENT: Pupils are round and equally reacting to light. EOMI. No scleral icterus. No conjunctival pallor. Normocephalic, atraumatic. No pharyngeal erythema. No thyromegaly. CARDIOVASCULAR: S1 and S2 present. No murmurs, rubs, or gallops. PULMONARY: Chest is clear to auscultation, no wheezing or crackles. ABDOMEN: Soft, nontender, nondistended, normoactive bowel sounds. No palpable organomegaly. MUSCULOSKELETAL: No joint swelling or deformity. EXTREMITIES: No cyanosis, clubbing, or pedal edema. NEUROLOGICAL: Gross neurological examination did not reveal any focal deficits. SKIN: No rashes. Assessment and plan -Generalized weakness follows from neuropathy and age-related muscle atrophy will need physical therapy Occupational Therapy evaluation possibly placement in subacute rehabilitation. -Acute renal failure secondary to excessive diuresis hold off on diuretics and lisinopril for today -Hyponatremia secondary to diuretics diuretics will be held today -Congestive heart failure with preserved ejection fraction without any acute exacerbation Patient is mildly hypovolemic -Coronary artery disease with prior history of CABG in the past patient had cardiac catheterization stents in the past -COPD without any acute exacerbation. She uses 2 L of oxygen at home -Hyperlipidemia -Sleep apnea CPAP machine at home Problem mentioned chronic medical problems patient will be resumed on appropriate home medications DVT prophylaxis: Subcutaneous heparin Past Medical History Past Medical History: Coronary Artery Disease (CAD), Heart Failure, COPD, Dementia, GERD/Reflux, Hyperlipidemia, Myocardial Infarction (MD), Sleep Apnea/CPAP/BIPAP Additional Past Medical History / Comment(s): COPD, obesity, coronary artery disease with previous bypass surgery, cataracts, hiatal hernia, obstructive sleep apnea with CPAP therapy. 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 Mother History Unknown: Yes Family Medical History: CVA/TIA Additional Family Medical History / Comment(s): at age 99 3/4 from a stoke Medications and Allergies Home Medications Medication Instructions Recorded Confirmed Type Ezetimibe [Zetia] 10 mg PO DAILY 02/13/16 04/18/24 History Nitroglycerin Sl Tabs [Nitrostat] 0.4 mg SL Q5M PRN 06/22/16 04/18/24 History Clopidogrel [Plavix] 75 mg PO DAILY 10/20/19 04/18/24 History DULoxetine HCL [Cymbalta] 60 mg PO DAILY 07/19/21 04/18/24 History Fluticasone/Umeclidin/Vilanter 1 puff INHALATION RT-DAILY 03/06/22 04/18/24 History [Trelegy Ellipta 100-62.5-25] Albuterol Inhaler [Ventolin Hfa 2 puff INHALATION RT-QID PRN 02/23/23 04/18/24 History Inhaler] Atorvastatin [Lipitor] 40 mg PO DAILY #30 tab 05/10/23 04/18/24 Rx Metoprolol Tartrate [Lopressor] 25 mg PO BID #60 tab 05/10/23 04/18/24 Rx lisinopriL [Zestril] 5 mg PO DAILY #30 tab 05/10/23 04/18/24 Rx Pantoprazole [Protonix] 40 mg PO DAILY #30 tab 05/12/23 04/18/24 Rx polyethylene glycoL 3350 [Miralax] 17 gm PO DAILY 08/06/23 04/18/24 History Isosorbide Mononitrate ER [Imdur] 60 mg PO DAILY 12/10/23 04/18/24 History predniSONE 5 mg PO DAILY 12/10/23 04/18/24 History Donepezil HCl [Aricept] 10 mg PO DAILY 02/23/24 04/18/24 History Torsemide [Demadex] 10 mg PO DAILY 02/23/24 04/18/24 History Ranolazine [Ranexa] 500 mg PO Q12HR #60 tab 02/26/24 04/18/24 Rx Albuterol Nebulized [Ventolin 2.5 mg INHALATION RT-QID 04/14/24 04/18/24 History Nebulized] Ibuprofen/Diphenhydramine HCl 2 cap PO HS 04/14/24 04/18/24 History [Advil Pm Liqui-Gels] Magnesium 250 mg PO DAILY 04/14/24 04/18/24 History diphenhydrAMINE HCL [Benadryl] 50 mg PO HS 04/14/24 04/18/24 History Allergies Allergy/AdvReac Type Severity Reaction Status Date / Time No Known Allergies Allergy Verified 04/18/24 09:08 Physical Exam Vitals: Vital Signs Temp Pulse Resp BP Pulse Ox 04/18/24 12:22 70 04/18/24 12:12 72 04/18/24 11:35 97.7 F 65 81 H 123/70 96 04/18/24 08:26 97.6 F 60 18 102/53 97 04/18/24 06:10 73 18 116/52 96 04/18/24 00:22 97.7 F 72 17 101/50 97 Intake and Output 04/17/24 04/18/24 04/18/24 22:59 06:59 14:59 Other: Weight 95.254 kg Results CBC & Chem 7: 04/18/24 00:36 04/18/24 00:36 Labs: Abnormal Lab Results - Last 24 Hours (Table) 04/18/24 04/18/24 Range/Units 00:36 00:36 RBC 3.70 L (4.30-5.90) m/uL Hgb 11.3 L (13.0-17.5) gm/dL Hct 34.3 L (39.0-53.0) % Plt Count 114 L (150-450) k/uL Sodium 131 L (137-145) mmol/L Carbon Dioxide 21 L (22-30) mmol/L BUN 33 H (9-20) mg/dL Creatinine 1.67 H (0.66-1.25) mg/dL Glucose 151 H (74-99) mg/dL Total Protein 5.9 L (6.3-8.2) g/dL
[2024-04-18] MEDS: predniSONE 5 MG TAB PO SCH (14:11)
[2024-04-18] MEDS: RANOLAZINE 500 MG TAB.ER.12H PO SCH (14:12)
[2024-04-18] MEDS: HEPARIN SODIUM,PORCINE 5,000 UNIT/ML 1 ML VIAL SQ SCH (15:48)
[2024-04-18] MEDS: IPRATROPIUM-ALBUTEROL 3 ML NEB INHALATION SCH (15:49)
[2024-04-18] MEDS: METOPROLOL TARTRATE 25 MG TAB PO SCH (21:58)
[2024-04-19] MEDS: ACETAMINOPHEN TAB 325 MG TAB PO PRN (03:57)
[2024-04-19 07:21] VITALS: RESP 18
[2024-04-19] MEDS: SYMBICORT 80-4.5 MCG INHALER INHALATION SCH (07:31)
[2024-04-19] MEDS: polyethylene glycoL 3350 17 GM POWD.PACK PO SCH (09:02)
[2024-04-19] MEDS: EZETIMIBE 10 MG TAB PO SCH (09:03)
[2024-04-19] MEDS: DONEPEZIL 10 MG TAB PO SCH (09:03)
[2024-04-19] MEDS: lisinopriL 5 MG TAB PO SCH (09:04)
[2024-04-19] MEDS: MAGNESIUM OXIDE 400 MG TAB PO SCH (09:04)
[2024-04-19 09:37] LABS: BUN/Creat Ratio 17.45 Ratio (12.00-20.00); Blood Urea Nitrogen 19.2 mg/dL (9.0-27.0); Carbon Dioxide 21.1 mmol/L (21.6-31.8); Chloride 104 mmol/L (96-109); Glucose 96 mg/dL (70-110); Potassium 4.9 mmol/L (3.5-5.5); Sodium 136 mmol/L (135-145)
[2024-04-19 09:38] LABS: Calcium 8.7 mg/dL (8.7-10.3)
[2024-04-19 14:50] VITALS: BP 113/57; TEMP 97.8
--- NOTE | 2024-04-19 15:43 | P.DS ---
Providers Date of admission: 04/18/24 03:55 Attending physician: Maverick Deng Primary care physician: [facility] Course: Final Diagnosis -Generalized weakness from neuropathy and age-related muscle atrophy patient has been up ambulating and wants to DC -Acute renal failure secondary to excessive diuresis hold off on diuretics and lisinopril for today -Hyponatremia secondary to diuretics diuretics will be held today -Congestive heart failure with preserved ejection fraction without any acute exacerbation Patient is mildly hypovolemic -Coronary artery disease with prior history of CABG in the past patient had cardiac catheterization stents in the past -COPD without any acute exacerbation. She uses 2 L of oxygen at home -Hyperlipidemia -Sleep apnea CPAP machine at home Problem mentioned chronic medical problems patient will be resumed on appropriate home medications Discharge Disposition Stable for discharge home. Patient's sodium and renal function have normalized after holding lisinopril and his diuretic for 1 day. He is feeling better and has been up ambulating without difficulties. Patient may benefit from physical therapy outpatient which needs to be referred from his family doctor. He is scheduled to undergo at bilateral lower extremity angiography as outpatient tomorrow at [facility]. Patient will be discharged home today. Repeat blood work in 2 to 3 days. Hospital Course Patient pleasant 84-year-old male has medical history of COPD, oxygen dependent, hyperlipidemia, Sleep apnea, CPAP machine at home, heart failure, dementia, hyperlipidemia, GERD, CABG, coronary stents, came with complaints of generalized weakness and falls patient was having neuropathy symptoms and falls secondary to possibly from neuropathy. Patient has multiple other medical problems was hospitalized in the past. Patient does have history of congestive heart failure uses torsemide at home. Patient had preserved ejection fraction. Patient is presently slightly hypokalemic with elevated creatinine of around 1.67 and hypon atremic with serum sodium of 131 his baseline creatinine is within normal limits. Patient was monitored overnight. His blood work improved his white blood cell count is 136, BUN of 19.2, creatinine 1.1. Patient has no acute complaints. He has been resting in bed. He is scheduled to undergo angiograms bilateral lower extremity at [facility] tomorrow. Discussed case with patient's and she is agreeable with this plan and is comfortable with patient returning home today. Please see medication reconciliation for a list of current medications. Thank you for allowing us to participate in the care of this patient. The impression and plan of care has been dictated by Karolina Joseph Nurse Practitioner as directed. Dr. Pia MD I have performed a history and physical examination and medical decision making of this patient, discussed the same with the dictator, and agree with the dictators assessment and plan as written, documented as a scribe. Based on total visit time, I have performed more than 50% of this visit. Patient Condition at Discharge: Fair Plan - Discharge Summary Discharge Rx Participant: Yes New Discharge Prescriptions: Continue Ezetimibe [Zetia] 10 mg PO DAILY Nitroglycerin Sl Tabs [Nitrostat] 0.4 mg SL Q5M PRN PRN Reason: Chest Pain Clopidogrel [Plavix] 75 mg PO DAILY DULoxetine HCL [Cymbalta] 60 mg PO DAILY Fluticasone/Umeclidin/Vilanter [Trelegy Ellipta 100-62.5-25] 1 puff INHALATION RT-DAILY Albuterol Inhaler [Ventolin Hfa Inhaler] 2 puff INHALATION RT-QID PRN PRN Reason: Shortness Of Breath Metoprolol Tartrate [Lopressor] 25 mg PO BID #60 tab lisinopriL [Zestril] 5 mg PO DAILY #30 tab polyethylene glycoL 3350 [Miralax] 17 gm PO DAILY Isosorbide Mononitrate ER [Imdur] 60 mg PO DAILY Torsemide [Demadex] 10 mg PO DAILY diphenhydrAMINE HCL [Benadryl] 50 mg PO HS Ibuprofen/Diphenhydramine HCl [Advil Pm Liqui-Gels] 2 cap PO HS Albuterol Nebulized [Ventolin Nebulized] 2.5 mg INHALATION RT-QID Atorvastatin [Lipitor] 40 mg PO DAILY #30 tab Pantoprazole [Protonix] 40 mg PO DAILY #30 tab predniSONE 5 mg PO DAILY Donepezil HCl [Aricept] 10 mg PO DAILY Ranolazine [Ranexa] 500 mg PO Q12HR #60 tab Magnesium 250 mg PO DAILY Discharge Medication List Ezetimibe [Zetia] 10 mg PO DAILY 02/13/16 [History] Nitroglycerin Sl Tabs [Nitrostat] 0.4 mg SL Q5M PRN 06/22/16 [History] Clopidogrel [Plavix] 75 mg PO DAILY 10/20/19 [History] DULoxetine HCL [Cymbalta] 60 mg PO DAILY 07/19/21 [History] Fluticasone/Umeclidin/Vilanter [Trelegy Ellipta 100-62.5-25] 1 puff INHALATION RT-DAILY 03/06/22 [History] Albuterol Inhaler [Ventolin Hfa Inhaler] 2 puff INHALATION RT-QID PRN 02/23/23 [History] Atorvastatin [Lipitor] 40 mg PO DAILY #30 tab 05/10/23 [Rx] Metoprolol Tartrate [Lopressor] 25 mg PO BID #60 tab 05/10/23 [Rx] lisinopriL [Zestril] 5 mg PO DAILY #30 tab 05/10/23 [Rx] Pantoprazole [Protonix] 40 mg PO DAILY #30 tab 05/12/23 [Rx] polyethylene glycoL 3350 [Miralax] 17 gm PO DAILY 08/06/23 [History] Isosorbide Mononitrate ER [Imdur] 60 mg PO DAILY 12/10/23 [History] predniSONE 5 mg PO DAILY 12/10/23 [History] Donepezil HCl [Aricept] 10 mg PO DAILY 02/23/24 [History] Torsemide [Demadex] 10 mg PO DAILY 02/23/24 [History] Ranolazine [Ranexa] 500 mg PO Q12HR #60 tab 02/26/24 [Rx] Albuterol Nebulized [Ventolin Nebulized] 2.5 mg INHALATION RT-QID 04/14/24 [History] Ibuprofen/Diphenhydramine HCl [Advil Pm Liqui-Gels] 2 cap PO HS 04/14/24 [History] Magnesium 250 mg PO DAILY 04/14/24 [History] diphenhydrAMINE HCL [Benadryl] 50 mg PO HS 04/14/24 [History] Follow up Appointment(s)/Referral(s): Doretha Rose MD [Primary Care Provider] - 1-2 days Ambulatory/Diagnostic Orders: Basic Metabolic Panel [LAB.AMB] Time Frame: 3 Days, Location: None Selected Activity/Diet/Wound Care/Special Instructions: Keep your appt for angiogram at [facility] on Saturday Discharge Disposition: HOME SELF-CARE
[2024-04-19 15:47] VITALS: PULSE 75
== END 2024-04-19 16:50 | disposition home or self-care (01) ==
LOC: EC 00:20 → 4SSUR 03:55
PROVIDERS: ADMIT Internal Medicine; ATTEND Internal Medicine
DX: M62.50 Muscle wasting and atrophy, not elsewhere classified, unspecified site (principal); N17.9 Acute kidney failure, unspecified; G62.9 Polyneuropathy, unspecified; E87.6 Hypokalemia; E87.1 Hypo-osmolality and hyponatremia; E86.1 Hypovolemia; T50.2X5A Adverse effect of carbonic-anhydrase inhibitors, benzothiadiazides and other diuretics, initial encounter; E86.0 Dehydration; Z04.3 Encounter for examination and observation following other accident; I50.30 Unspecified diastolic (congestive) heart failure; I25.10 Atherosclerotic heart disease of native coronary artery without angina pectoris; E78.5 Hyperlipidemia, unspecified; K21.9 Gastro-esophageal reflux disease without esophagitis; F03.90 Unspecified dementia, unspecified severity, without behavioral disturbance, psychotic disturbance, mood disturbance, and anxiety; G47.30 Sleep apnea, unspecified; Z99.81 Dependence on supplemental oxygen; W19.XXXA Unspecified fall, initial encounter; Z79.02 Long term (current) use of antithrombotics/antiplatelets; Z79.51 Long term (current) use of inhaled steroids; Z79.52 Long term (current) use of systemic steroids; Z79.899 Other long term (current) drug therapy; Z87.891 Personal history of nicotine dependence; Z95.1 Presence of aortocoronary bypass graft; Z95.5 Presence of coronary angioplasty implant and graft
CPT/HCPCS: 96372 ×2; 96360; 96361; 99285; 36415; 94660; 94640 ×3; 93005; 83880; 80053; 80048; 83605; 83735; 84484; 85025; 85610; 85730; 81003; 71046; G0378 ×2; J1644 ×2; J7512 ×2